=== PATIENT | female | born 1935 | race Two or more races ===

== ENCOUNTER 2017-07-16 22:42 | Inpatient (IN) | payer MEDICARE, OTHER ==
[~2017-07-16] VITALS: Ht 162.6 cm; Wt 59.0 kg
[2017-07-16 23:10] VITALS: BP 134/88
[2017-07-16 23:32] LABS: BASOPHILS % (AUTO) 0.6 % (0.0-2.0); LYMPHOCYTES % (AUTO) 24.4 % (20.0-45.0); MEAN CORPUSCULAR HEMOGLOBIN 29.4 PG (27.0-31.0); MEAN CORPUSCULAR HGB CONC 31.5 G/DL (32.0-36.0); MEAN CORPUSCULAR VOLUME 93 FL (80-99); MEAN PLATELET VOLUME 5.9 FL (6.5-10.1); MONOCYTES % (AUTO) 7.5 % (1.0-10.0); NEUTROPHILS % (AUTO) 67.6 % (45.0-75.0); PLATELET COUNT 360 K/UL (150-450); RED BLOOD COUNT 4.03 M/UL (4.20-5.40); RED CELL DISTRIBUTION WIDTH 17.6 % (11.6-14.8)
[2017-07-16 23:54] LABS: ANION GAP 21 (5-15); CALCIUM 9.4 mg/dL (8.6-10.2); CARBON DIOXIDE 20 mEQ/L (20-30); CHLORIDE 89 mEQ/L (98-107); CREATININE 5.6 mg/dL (0.5-0.9); HEMOLYSIS 5; POTASSIUM 5.2 mEQ/L (3.4-4.9); SODIUM 130 mEQ/L (135-145)
[2017-07-17] VITALS (7 sets, daily range): BP systolic 84–131; BP diastolic 52–78
--- NOTE | 2017-07-17 02:04 | Emergency Room Report ---
History of Present Illness General Chief Complaint: Nosebleed Source: Medical Record, PMD Present Illness HPI Is an 82-year-old female with a history diabetes and bilateral AKA. She presents with vomiting blood. Unable to get history from patient. History is from her primary care DrIvy and also from a prison. Onset tonight. Denies any other complaint. Allergies: Coded Allergies: No Known Allergies (Unverified , 07/16/17) Patient History Past Medical History: see triage record, old chart reviewed, DM, renal disease Past Surgical History: other Pertinent Family History: none Social History: Denies: smoking Now: No Immunizations: other Reviewed Nursing Documentation: PMH: Agreed, PSxH: Agreed Nursing Documentation-PMH Past Medical History: No History, Except For Hx Cardiac Problems: No - PNA, Anemia, Hyperlipidemia Hx Hypertension: Yes Review of Systems Eye: Denies: eye pain, blurred vision ENT: Denies: ear pain, nose congestion, throat swelling Respiratory: Denies: cough, shortness of breath Cardiovascular: Denies: chest pain, palpitations Gastrointestinal: Reports: hematemesis Musculoskeletal: Denies: back pain, joint pain Skin: Denies: rash Neurological: Denies: headache, numbness Endocrine: Denies: increased thirst, increased urine Hematologic/Lymphatic: Denies: easy bruising All Other Systems: negative except mentioned in HPI Physical Exam Vital Signs Date Time Temp Pulse Resp B/P (MAP) Pulse Ox O2 Delivery O2 Flow Rate FiO2 07/16/17 22:50 98.2 101 19 90/40 100 Room Air vitals with hypotension Sp02 EP Interpretation: reviewed, normal General Appearance: no apparent distress, Chronically Ill Head: normocephalic, atraumatic Eyes: bilateral eye PERRL, bilateral eye EOMI ENT: hearing grossly normal, normal pharynx, other - Active bleeding from left nose. Large clot in her nose. Neck: full range of motion, supple, no meningismus Respiratory: chest non-tender, lungs clear, normal breath sounds Cardiovascular #1: regular rate, rhythm, no murmur Gastrointestinal: normal bowel sounds, non tender, no mass, no organomegaly, no bruit, non-distended Musculoskeletal: back normal Psychiatric: mood/affect normal Skin: warm/dry Procedures Additional Procedure Procedure Narrative Procedure: Nasal packing Indication: Left epistaxis Description: I suction the nose with Rodriguez suction. The back of a large amount of clots. I did place a 5.5 cm anterior Rhino rocket. She tolerated seizure without a problem. Bleeding stopped. Medical Decision Making Diagnostic Impression: Primary Impression: Epistaxis Additional Impression: GI bleed Qualified Codes: K92.2 - Gastrointestinal hemorrhage, unspecified ER Course Patient with hematocrit emesis. Most likely secondary to swallowed blood. After my packing, patient had a very large amount of blood when she vomited. Because of this we'll observe her for serial hemoglobin. No evidence of active bleeding now. Hemoglobin at this point is stable. Blood pressure improved after IV fluid. Lab Results Impression labs unremarkable Rhythm Strip Diag. Results Rhythm Strip Time: 02:04 EP Interpretation: yes Rate: 100 Rhythm: NSR, no PVC's, no ectopy Last Vital Signs Date Time Temp Pulse Resp B/P (MAP) Pulse Ox O2 Delivery O2 Flow Rate FiO2 07/17/17 01:42 98.2 102 19 114/56 100 Room Air Status: improved Disposition: ADMITTED INPATIENT Condition: Serious Referrals: NON PHYSICIAN (PCP) YAHAIRA MURRAY M.D. Jul 17, 2017 02:04
[2017-07-17] MEDS ORDERED: ZINC SULFATE220 M1 ORAL (02:33)
[2017-07-17] MEDS ORDERED: BENADRYL25 MG ORAL (02:33)
[2017-07-17] MEDS ORDERED: DULCOLAX10 MG RC (02:33)
[2017-07-17] MEDS ORDERED: FOLIC ACID1 MG ORAL (02:33)
[2017-07-17] MEDS ORDERED: PEPCID20 MG ORAL (02:33)
[2017-07-17] MEDS ORDERED: ALLOPURINOL100 M1 ORAL (02:33)
[2017-07-17] MEDS ORDERED: NORCO 5-325 TA1 EACH ORAL (02:33)
[2017-07-17] MEDS ORDERED: ASPIR 8181 MG ORAL (02:33)
[2017-07-17] MEDS ORDERED: PRAVACHOL20 MG ORAL (02:33)
[2017-07-17] MEDS ORDERED: PLAVIX75 MG ORAL (02:33)
[2017-07-17] MEDS ORDERED: HYDRALAZINE HCL25 M1 ORAL (02:33)
[2017-07-17] MEDS ORDERED: Zolpidem 5mg tab ORAL PRN (05:30)
[2017-07-17] MEDS ORDERED: Norco 5mg/325mg tab ORAL PRN (05:45)
[2017-07-17] MEDS: D5 1/2NS 1,000 ML IV SCH ×2 (07:32→19:51)
[2017-07-17] MEDS: NovoLOG Insulin Flexpen SUBQ SCH ×3 (07:33→17:55)
[2017-07-17] MEDS ORDERED: Allopurinol 100mg Tab ORAL SCH (09:00)
--- NOTE | 2017-07-17 13:36 | History & Physical ---
History and Physical History & Physicial HP dictated # [id number] ESEQUIEL PÉREZ Jul 17, 2017 13:36
--- NOTE | 2017-07-17 17:23 | General Progress Note ---
Assessment/Plan Assessment/Plan GI CONSULT Dictated Presentation suggestive of only epistaxis would observe overnight and re check CBC in am No GI w/u planned unless shows ongoing / extensive bleeding Thank you Alberto Rico MD Subjective Allergies: Coded Allergies: No Known Allergies (Unverified , 07/16/17) Objective Last 24 Hour Vital Signs Date Time Temp Pulse Resp B/P (MAP) Pulse Ox O2 Delivery O2 Flow Rate FiO2 07/17/17 16:00 97.2 111 19 105/52 94 Room Air 07/17/17 14:56 Room Air 07/17/17 12:00 96.4 63 18 131/78 97 Room Air 07/17/17 11:30 Room Air 07/17/17 08:00 97.7 104 20 115/69 97 07/17/17 04:00 96.8 105 17 105/71 100 Room Air 07/17/17 02:34 98.2 102 19 114/56 100 Room Air 07/17/17 01:42 98.2 102 19 114/56 100 Room Air 07/17/17 01:15 98.2 101 19 84/54 100 Room Air 07/16/17 23:10 98.2 105 19 134/88 100 Room Air 07/16/17 22:50 98.2 101 19 90/40 100 Room Air Intake and Output 07/17/17 07/18/17 19:00 07:00 Output Total 1600 ml Balance -1600 ml Hemodialysis UF 1600 ml Laboratory Tests 07/16/17 23:05: White Blood Count 11.0H, Red Blood Count 4.03L, Hemoglobin 11.9L, Hematocrit 37.7, Mean Corpuscular Volume 93, Mean Corpuscular Hemoglobin 29.4, Mean Corpuscular Hemoglobin Concent 31.5L, Red Cell Distribution Width 17.6H, Platelet Count 360, Mean Platelet Volume 5.9L, Neutrophils (%) (Auto) 67.6, Lymphocytes (%) (Auto) 24.4, Monocytes (%) (Auto) 7.5, Eosinophils (%) (Auto) 0.0, Basophils (%) (Auto) 0.6, Sodium Level 130L, Potassium Level 5.2H, Chloride Level 89L, Carbon Dioxide Level 20, Anion Gap 21H, Blood Urea Nitrogen 119H, Creatinine 5.6H, Estimat Glomerular Filtration Rate , Glucose Level 231H, Calcium Level 9.4 Height (Feet): 5 Height (Inches): 4.00 Weight (Pounds): 130 ALBERTO RICO Jul 17, 2017 17:23
[2017-07-18] VITALS: BP 139/80
[2017-07-18] MEDS ORDERED: Oxymetazoline 0.05% Na Spray 30ml NASAL ONE (00:27)
--- NOTE | 2017-07-18 01:10 | Emergency Room Report ---
History of Present Illness General Chief Complaint: Nosebleed Source: Medical Record, PMD Present Illness Allergies: Coded Allergies: No Known Allergies (Unverified , 07/16/17) Patient History Now: No Nursing Documentation-PMH Past Medical History: No History, Except For Hx Cardiac Problems: No - PNA, Anemia, Hyperlipidemia Hx Hypertension: Yes Hx Diabetes: Yes Hx Cancer: No Hx Dialysis: Yes - ESRD Physical Exam Vital Signs Date Time Temp Pulse Resp B/P (MAP) Pulse Ox O2 Delivery O2 Flow Rate FiO2 07/16/17 22:50 98.2 101 19 90/40 100 Room Air Medical Decision Making Diagnostic Impression: Primary Impression: Epistaxis Additional Impression: GI bleed Qualified Codes: K92.2 - Gastrointestinal hemorrhage, unspecified ER Course The patient noted by staff to have some increased bleeding to her left nare. The patient was noted to have a prior nasal packing. A Rhino Rocket balloon was noted to be somewhat deflated. This was reinflated with air. Afrin nasal spray was instilled into left nare. The patient was noted to have some improvement in the bleeding which appear to be minimal. The nursing staff were advised to recontact if bleeding increased. Last Vital Signs Date Time Temp Pulse Resp B/P (MAP) Pulse Ox O2 Delivery O2 Flow Rate FiO2 07/17/17 20:00 98.4 102 18 115/64 99 Room Air Disposition: ADMITTED INPATIENT Condition: Serious Referrals: NON PHYSICIAN (PCP) Bar Robertson Jul 18, 2017 01:10
[2017-07-18] MEDS ORDERED: Desmopressin (DDAVP) Inj IV ONE (03:30)
--- NOTE | 2017-07-18 03:30 | Consultation ---
DATE OF CONSULTATION: 07/17/2017 GASTROENTEROLOGY CONSULTATION CHIEF COMPLAINT: I was asked to see this patient by Dr. Aftab Arnold for evaluation of hematemesis. HISTORY OF PRESENT ILLNESS: The patient is an 82-year-old woman with advanced dementia who was brought to the hospital due to hematemesis. The patient has had an extensive history of diabetes and vascular disease resulting in bilateral [id number] amputations. There is no history available from the patient. In the emergency room, the patient was treated for her hematemesis and was subsequent found to have a significant epistaxis to the point of requiring a nasal packing with a balloon. Subsequently, her bleeding has stopped and she was sent to the floor for observation. The patient's hematocrit on admission was intact. The patient is a dialysis patient. PAST MEDICAL HISTORY: History of renal failure requiring chronic dialysis, history of diabetes, and peripheral vascular disease status post [id number] amputation, dysphagia status post gastrostomy tube placement, and dementia. ALLERGIES: None. SOCIAL HISTORY: The patient is a assisted resident. FAMILY HISTORY: Unavailable. REVIEW OF SYSTEMS: Unobtainable. PHYSICAL EXAMINATION: GENERAL: The patient is a debilitated woman, seen in her room. HEENT: Normocephalic and atraumatic. Dentition was poor. NECK: Supple. CHEST: Clear to auscultation. CARDIOVASCULAR: Revealed a regular rate. ABDOMEN: Soft with good bowel sounds and appropriate gastrostomy catheter. EXTREMITIES: Revealed [id number] amputations bilaterally. NEUROLOGIC: Notable for advanced dementia. LABORATORY AND DIAGNOSTIC DATA: Laboratory data as noted. ASSESSMENT: This patient presents with what appears to be epistaxis is the primary and only pathology. The upper gastrointestinal bleeding will therefore be due to nosebleed. So the patient's hematocrit will likely stay reasonably stable and no further action will be necessary except treatment of the patient's nosebleed. If the patient shows evidence of ongoing bleeding, then gastrointestinal endoscopy may be necessary to evaluate the upper gastrointestinal tract. RECOMMENDATIONS: 1. Admit to the hospital for overnight observation. 2. Intravenous fluids as appropriate per renal physician. 3. Repeat CBC tomorrow. 4. Monitor for rectal bleeding or melena. Thank you for asking me to participate in care this patient. Alberto Rico M.D. DR: NASIR JOB#: [id number] CC: BHANU
[2017-07-18 04:28] VITALS: BP 114/57
[2017-07-18] MEDS: D5 1/2NS 1,000 ML IV SCH ×3 (04:45→23:33)
[2017-07-18] MEDS ORDERED: Zolpidem 5mg tab ORAL PRN (05:30)
--- NOTE | 2017-07-18 05:30 | History and Physical Report ---
DATE OF ADMISSION: 07/17/2017 CHIEF COMPLAINT: Vomiting blood. HISTORY OF PRESENT ILLNESS: This is an 82-year-old female with history of end-stage renal disease, on hemodialysis apparently every Wednesday, , and Wednesday, her last dialysis was two days ago. She was brought in for vomiting blood. It turned out she had epistaxis and nose was packed. She is unable to provide any history because of history of dementia. She usually goes to [facility] for her medical needs. PAST MEDICAL HISTORY: Includes history of diabetes mellitus, the patient is status post bilateral above-knee amputations, history of end-stage renal disease as mentioned. Per [facility] records, the patient had also history of dyslipidemia, hypertension, peripheral vascular disease, prior CVA, history of DVT, history of Streptococcus bacteremia, and anemia. MEDICATIONS: Reviewed in the EMR. ALLERGIES: NKDA. SOCIAL HISTORY: Unobtainable. Per previous records, no history of smoking or alcohol abuse. The patient lives in [facility] REVIEW OF SYSTEMS: Unobtainable. PHYSICAL EXAMINATION: GENERAL: The patient is an elderly female, eyes open, nonverbal. VITAL SIGNS: Blood pressure 131/78, pulse 63, temperature 96.4 degrees, and respiratory rate is 18. HEENT: [place] conjunctivae. Anicteric sclerae. NECK: Supple. LUNGS: Clear to auscultation. HEART: S1 and S2 without murmurs or rubs. ABDOMEN: Soft and nontender. The patient has G-tube on upper abdomen. EXTREMITIES: The patient has bilateral above-knee amputations. LABORATORY FINDINGS: CBC shows a WBC of 11,000, hematocrit 37.7, hemoglobin 11.9, and platelets 360,000. Chemistry panel shows a sodium of 130, potassium 5.2, chloride 89, BUN 119, creatinine 5.6, and blood sugar is 231. ASSESSMENT: This is an 82-year-old female ,who was admitted with vomiting blood, likely as a result of swallowing the blood from the nosebleed. She has history of end-stage renal disease, on hemodialysis every Wednesday, , and Wednesday, history of diabetes, cerebrovascular accident, and hypertension. PLAN: The patient is being dialyzed at this point. She was seen by Dr. Rico in GI consultation. I just discussed the case with him. There is no plan to do endoscopy, as mentioned that likely the blood is coming from the nose and not from the stomach. ENT consultation will be obtained. The patient's CBC will be followed closely. Aftab Arnold M.D. DR: MARIELA JOB#: [id number] CC: BHANU
[2017-07-18] MEDS ORDERED: Norco 5mg/325mg tab ORAL PRN (05:45)
[2017-07-18] MEDS: NovoLOG Insulin Flexpen SUBQ SCH ×5 (06:21→23:28)
[2017-07-18 08:06] LABS: BASOPHILS % (AUTO) 0.7 % (0.0-2.0); EOSINOPHILS % (AUTO) 0.2 % (0.0-3.0); LYMPHOCYTES % (AUTO) 13.9 % (20.0-45.0); MEAN CORPUSCULAR HEMOGLOBIN 29.1 PG (27.0-31.0); MEAN CORPUSCULAR HGB CONC 31.1 G/DL (32.0-36.0); MEAN CORPUSCULAR VOLUME 93 FL (80-99); MEAN PLATELET VOLUME 5.7 FL (6.5-10.1); MONOCYTES % (AUTO) 9.1 % (1.0-10.0); NEUTROPHILS % (AUTO) 76.2 % (45.0-75.0); PLATELET COUNT 228 K/UL (150-450); RED BLOOD COUNT 2.93 M/UL (4.20-5.40); RED CELL DISTRIBUTION WIDTH 17.8 % (11.6-14.8); WHITE BLOOD COUNT 10.2 K/UL (4.8-10.8)
[2017-07-18 08:33] VITALS: BP 92/58
[2017-07-18 11:38] VITALS: BP 136/73
[2017-07-18] MEDS: Allopurinol 100mg Tab ORAL SCH (12:57)
--- NOTE | 2017-07-18 15:04 | General Progress Note ---
Assessment/Plan Assessment/Plan Assessment - epistaxis - Anemia - ESRD - OBS - Dysphagia/GT Recommendations - ENT eval - GT Feeds - Monitor H&H - check coags Subjective Allergies: Coded Allergies: No Known Allergies (Unverified , 07/16/17) Subjective above noted more nose bleeding now both nares double packed nonverbal Objective Last 24 Hour Vital Signs Date Time Temp Pulse Resp B/P (MAP) Pulse Ox O2 Delivery O2 Flow Rate FiO2 07/18/17 11:38 97.7 123 20 136/73 97 Room Air 07/18/17 08:33 97.0 120 20 92/58 99 Room Air 07/18/17 04:28 97.6 124 21 114/57 100 Room Air 07/18/17 00:00 99.0 104 18 139/80 98 Room Air 07/17/17 20:00 98.4 102 18 115/64 99 Room Air 07/17/17 16:00 97.2 111 19 105/52 94 Room Air 07/17/17 14:56 Room Air Laboratory Tests 07/18/17 05:30: White Blood Count 10.2, Red Blood Count 2.93L, Hemoglobin 8.5L, Hematocrit 27.4L , Mean Corpuscular Volume 93, Mean Corpuscular Hemoglobin 29.1, Mean Corpuscular Hemoglobin Concent 31.1L, Red Cell Distribution Width 17.8H, Platelet Count 228, Mean Platelet Volume 5.7L, Neutrophils (%) (Auto) 76.2H, Lymphocytes (%) (Auto) 13.9L, Monocytes (%) (Auto) 9.1, Eosinophils (%) (Auto) 0.2, Basophils (%) (Auto) 0.7 Height (Feet): 5 Height (Inches): 4.00 Weight (Pounds): 130 Objective Elderly AA woman NCAT (+) nares packed CTA RRR abd soft (+) GT (+) b/l AKA OBS NICOLE JOHNSTON Jul 18, 2017 15:04
--- NOTE | 2017-07-18 15:15 | General Progress Note ---
Assessment/Plan Problem List: (1) Epistaxis ICD Codes: R04.0 - Epistaxis SNOMED: 940792921, 40883249 (2) ESRD (end stage renal disease) on dialysis ICD Codes: N18.6 - End stage renal disease; Z99.2 - Dependence on renal dialysis SNOMED: 298412154 (3) DM (diabetes mellitus) ICD Codes: E11.9 - Type 2 diabetes mellitus without complications SNOMED: 73765310 (4) HTN (hypertension) ICD Codes: I10 - Essential (primary) hypertension SNOMED: 37156047 Assessment/Plan follow H/H transfuse PRN HD on Wednesday DDAVP given Discussed with RN Subjective Allergies: Coded Allergies: No Known Allergies (Unverified , 07/16/17) Subjective had more nose bleed yesterday was seen by ER physician packed again it appears it has stopped now Objective Last 24 Hour Vital Signs Date Time Temp Pulse Resp B/P (MAP) Pulse Ox O2 Delivery O2 Flow Rate FiO2 07/18/17 12:00 122 07/18/17 11:38 97.7 123 20 136/73 97 Room Air 07/18/17 08:33 97.0 120 20 92/58 99 Room Air 07/18/17 08:00 127 07/18/17 04:28 97.6 124 21 114/57 100 Room Air 07/18/17 00:00 99.0 104 18 139/80 98 Room Air 07/17/17 20:00 98.4 102 18 115/64 99 Room Air 07/17/17 16:00 97.2 111 19 105/52 94 Room Air Laboratory Tests 07/18/17 05:30: White Blood Count 10.2, Red Blood Count 2.93L, Hemoglobin 8.5L, Hematocrit 27.4L , Mean Corpuscular Volume 93, Mean Corpuscular Hemoglobin 29.1, Mean Corpuscular Hemoglobin Concent 31.1L, Red Cell Distribution Width 17.8H, Platelet Count 228, Mean Platelet Volume 5.7L, Neutrophils (%) (Auto) 76.2H, Lymphocytes (%) (Auto) 13.9L, Monocytes (%) (Auto) 9.1, Eosinophils (%) (Auto) 0.2, Basophils (%) (Auto) 0.7 Height (Feet): 5 Height (Inches): 4.00 Weight (Pounds): 130 Cardiovascular: normal rate Respiratory/Chest: lungs clear ESEQUIEL PÉREZ Jul 18, 2017 15:15
[2017-07-18] MEDS ORDERED: Augmentin 250mg/5ml Susp 75ml NG SCH (15:30)
[2017-07-18 15:49] VITALS: BP 159/70
[2017-07-18] MEDS: Augmentin 250mg/5ml Susp 75ml NG SCH ×2 (17:51→21:53)
[2017-07-18] MEDS ORDERED: D5 1/2NS 1000ml IV ONE (18:16)
[2017-07-18 20:00] VITALS: BP 128/65
[2017-07-19] VITALS: BP 134/68
[2017-07-19 04:00] VITALS: BP 143/73
[2017-07-19] MEDS: Augmentin 250mg/5ml Susp 75ml NG SCH ×3 (05:36→22:38)
[2017-07-19] MEDS: NovoLOG Insulin Flexpen SUBQ SCH ×4 (05:38→23:33)
[2017-07-19 08:00] VITALS: BP 151/77
[2017-07-19] MEDS: Allopurinol 100mg Tab ORAL SCH (08:53)
--- NOTE | 2017-07-19 09:50 | General Progress Note ---
Assessment/Plan Problem List: (1) Epistaxis ICD Codes: R04.0 - Epistaxis SNOMED: 640967325, 26081242 (2) ESRD (end stage renal disease) on dialysis ICD Codes: N18.6 - End stage renal disease; Z99.2 - Dependence on renal dialysis SNOMED: 406973235 (3) DM (diabetes mellitus) ICD Codes: E11.9 - Type 2 diabetes mellitus without complications SNOMED: 05579306 (4) HTN (hypertension) ICD Codes: I10 - Essential (primary) hypertension SNOMED: 13618800 Assessment/Plan follow H/H HD on Wednesday Discussed with RN Subjective Allergies: Coded Allergies: No Known Allergies (Unverified , 07/16/17) Subjective No more nose bleed Objective Last 24 Hour Vital Signs Date Time Temp Pulse Resp B/P (MAP) Pulse Ox O2 Delivery O2 Flow Rate FiO2 07/19/17 08:00 97.5 112 20 151/77 98 Room Air 07/19/17 04:00 97.9 115 18 143/73 97 Room Air 07/19/17 04:00 115 07/19/17 00:00 111 07/19/17 00:00 97.7 111 20 134/68 96 07/18/17 20:00 98.0 114 20 128/65 97 07/18/17 20:00 115 07/18/17 18:45 118 07/18/17 15:49 97.7 114 20 159/70 99 Room Air 07/18/17 12:00 122 07/18/17 11:38 97.7 123 20 136/73 97 Room Air Height (Feet): 5 Height (Inches): 4.00 Weight (Pounds): 130 Cardiovascular: normal rate Respiratory/Chest: lungs clear Edema: no edema noted ESEQUIEL Tello Jul 19, 2017 09:50
[2017-07-19 10:04] LABS: MEAN CORPUSCULAR HGB CONC 30.9 G/DL (32.0-36.0); MEAN CORPUSCULAR VOLUME 94 FL (80-99); MEAN PLATELET VOLUME 6.1 FL (6.5-10.1); PLATELET COUNT 164 K/UL (150-450); RED BLOOD COUNT 2.14 M/UL (4.20-5.40); RED CELL DISTRIBUTION WIDTH 18.1 % (11.6-14.8); WHITE BLOOD COUNT 15.1 K/UL (4.8-10.8)
[2017-07-19 10:09] LABS: PROTHROMBIN TIME 10.4 SEC (9.30-11.50)
[2017-07-19 10:15] LABS: ANION GAP 17 (5-15); CALCIUM 8.5 mg/dL (8.6-10.2); CARBON DIOXIDE 24 mEQ/L (20-30); CHLORIDE 91 mEQ/L (98-107); CREATININE 5.6 mg/dL (0.5-0.9); HEMOLYSIS 4; POTASSIUM 3.8 mEQ/L (3.4-4.9); SODIUM 132 mEQ/L (135-145)
[2017-07-19 11:37] LABS: ANISOCYTOSIS 1+; BAND NEUTROPHILS % (MANUAL) 1 % (0-8); BASOPHILS % (MANUAL) 0 % (0-2); EOSINOPHILS % (MANUAL) 0 % (0-3); HYPOCHROMASIA 1+; LYMPHOCYTES % (MANUAL) 8 % (20-45); NEUTROPHILS % (MANUAL) 82 % (45-75); PLATELET ESTIMATE ADEQUATE; PLATELET MORPHOLOGY NORMAL; TOTAL CELLS COUNTED 100
[2017-07-19 12:00] VITALS: BP 130/73
[2017-07-19 15:59] VITALS: BP 130/66
--- NOTE | 2017-07-19 17:03 | General Progress Note ---
Assessment/Plan Status: stable Assessment/Plan 1. epistaxis - Awaiting ENT tomorrow to see the patient. ER to repack nostril for today. 2. Anemia from Eipstaxis - transfuse 2 PRBC today. 3. ERSD on HD - renal following. 4. DM II 5. HTN 6. Hyperlipidemia 7. PVD 8. h/o CVA 9. 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 Subjective Date patient seen: Jul 19, 2017 Time patient seen: 04:40 Constitutional: Reports: weakness HEENT: Reports: other - nose bleeding Cardiovascular: Reports: other - sinus tachycadia Respiratory: Reports: no symptoms Gastrointestinal/Abdominal: Reports: no symptoms Genitourinary: Reports: no symptoms Neurologic/Psychiatric: Reports: no symptoms Endocrine: Reports: no symptoms Hematologic/Lymphatic: Reports: no symptoms Allergies: Coded Allergies: No Known Allergies (Unverified , 07/16/17) Subjective Pt has been having nose bleeding in the past few days since admission. no sob or chest pain. Today, she pulled her nose packing and bleeding again. Her H/H has dropped to 6.2 today. Objective Last 24 Hour Vital Signs Date Time Temp Pulse Resp B/P (MAP) Pulse Ox O2 Delivery O2 Flow Rate FiO2 07/19/17 15:59 97.5 111 20 130/66 100 Room Air 07/19/17 12:00 98.2 110 20 130/73 Room Air 07/19/17 12:00 108 07/19/17 08:00 97.5 112 20 151/77 98 Room Air 07/19/17 08:00 116 07/19/17 04:00 97.9 115 18 143/73 97 Room Air 07/19/17 04:00 115 07/19/17 00:00 111 07/19/17 00:00 97.7 111 20 134/68 96 07/18/17 20:00 98.0 114 20 128/65 97 07/18/17 20:00 115 07/18/17 18:45 118 Laboratory Tests 07/19/17 09:40: White Blood Count 15.1H, Red Blood Count 2.14L, Hemoglobin 6.2*L, Hematocrit 20.0L, Mean Corpuscular Volume 94, Mean Corpuscular Hemoglobin 29.0, Mean Corpuscular Hemoglobin Concent 30.9L, Red Cell Distribution Width 18.1H, Platelet Count 164, Mean Platelet Volume 6.1L, Neutrophils (%) (Auto) , Lymphocytes (%) (Auto) , Monocytes (%) (Auto) , Eosinophils (%) (Auto) , Basophils (%) (Auto) , Differential Total Cells Counted 100, Neutrophils % ( Manual) 82H, Lymphocytes % (Manual) 8L, Monocytes % (Manual) 9, Eosinophils % ( Manual) 0, Basophils % (Manual) 0, Band Neutrophils 1, Platelet Estimate Adequate, Platelet Morphology Normal, Hypochromasia 1+, Anisocytosis 1+, Prothrombin Time 10.4, Prothromb Time International Ratio 1.0, Sodium Level 132L , Potassium Level 3.8, Chloride Level 91L, Carbon Dioxide Level 24, Anion Gap 17H, Blood Urea Nitrogen 102H, Creatinine 5.6H, Estimat Glomerular Filtration Rate , Glucose Level 171H, Calcium Level 8.5L Height (Feet): 5 Height (Inches): 4.00 Weight (Pounds): 130 General Appearance: no apparent distress EENT: other Neck: non-tender, normal alignment, supple Cardiovascular: normal peripheral pulses, normal rate, regular rhythm Respiratory/Chest: chest wall non-tender, lungs clear, normal breath sounds Abdomen: normal bowel sounds, non tender, soft Extremities: non-tender Edema: no edema noted Arm (L), no edema noted Arm (R), no edema noted Leg (L), no edema noted Leg (R), no edema noted Pedal (L), no edema noted Pedal (R), no edema noted Generalized Neurologic: responsive Skin: warm/dry Lymphatic: normal anterior cervical (L), normal anterior cervical (R), normal posterior cervical (L), normal posterior cervical (R), normal submandibular (L) , normal submandibular (R), normal supraclavicular (L), normal supraclavicular ( R), normal axillary (L), normal axillary (R), normal inguinal (L), normal inguinal (R), normal other ELVA ARRIAZA Jul 19, 2017 17:03
[2017-07-19 20:13] VITALS: BP 123/72
[2017-07-19] MEDS: D5 1/2NS 1,000 ML IV SCH (21:10)
--- NOTE | 2017-07-19 21:17 | General Progress Note ---
Assessment/Plan Assessment/Plan Assessment - epistaxis - Anemia - ESRD - OBS - Dysphagia/GT Recommendations - ENT eval - GT Feeds - Monitor H&H - RBC Tx Subjective Allergies: Coded Allergies: No Known Allergies (Unverified , 07/16/17) Subjective above noted more nose bleeding Got RBC Tx nonverbal tolerating TF Objective Last 24 Hour Vital Signs Date Time Temp Pulse Resp B/P (MAP) Pulse Ox O2 Delivery O2 Flow Rate FiO2 07/19/17 20:13 99.1 107 20 123/72 99 Room Air 07/19/17 16:00 111 07/19/17 15:59 97.5 111 20 130/66 100 Room Air 07/19/17 12:00 98.2 110 20 130/73 Room Air 07/19/17 12:00 108 07/19/17 08:00 97.5 112 20 151/77 98 Room Air 07/19/17 08:00 116 07/19/17 04:00 97.9 115 18 143/73 97 Room Air 07/19/17 04:00 115 07/19/17 00:00 111 07/19/17 00:00 97.7 111 20 134/68 96 Intake and Output 07/19/17 07/20/17 19:00 07:00 Intake Total 440 ml Balance 440 ml IV Total 440 ml Laboratory Tests 07/19/17 09:40: White Blood Count 15.1H, Red Blood Count 2.14L, Hemoglobin 6.2*L, Hematocrit 20.0L, Mean Corpuscular Volume 94, Mean Corpuscular Hemoglobin 29.0, Mean Corpuscular Hemoglobin Concent 30.9L, Red Cell Distribution Width 18.1H, Platelet Count 164, Mean Platelet Volume 6.1L, Neutrophils (%) (Auto) , Lymphocytes (%) (Auto) , Monocytes (%) (Auto) , Eosinophils (%) (Auto) , Basophils (%) (Auto) , Differential Total Cells Counted 100, Neutrophils % ( Manual) 82H, Lymphocytes % (Manual) 8L, Monocytes % (Manual) 9, Eosinophils % ( Manual) 0, Basophils % (Manual) 0, Band Neutrophils 1, Platelet Estimate Adequate, Platelet Morphology Normal, Hypochromasia 1+, Anisocytosis 1+, Prothrombin Time 10.4, Prothromb Time International Ratio 1.0, Sodium Level 132L , Potassium Level 3.8, Chloride Level 91L, Carbon Dioxide Level 24, Anion Gap 17H, Blood Urea Nitrogen 102H, Creatinine 5.6H, Estimat Glomerular Filtration Rate , Glucose Level 171H, Calcium Level 8.5L Height (Feet): 5 Height (Inches): 4.00 Weight (Pounds): 130 Objective Elderly AA woman NCAT (+) nares packed CTA RRR abd soft (+) GT (+) b/l AKA OBS NICOLE JOHNSTON Jul 19, 2017 21:17
--- NOTE | 2017-07-19 23:06 | Wound Care Consultation ---
Wound Assessment Wound Assessment #1: Wound Number: 1 Wound Present on Admission: Yes New Wound: No Status Change of Wound: No Wound Location Body Site Modif: mid Wound Location Body Site: sacral Wound Type: pressure ulcer Luana Test: Does not Luana Pressure Ulcer Stage: III - scattered Wound Thickness: Full Thickness Wound Length: 6.0 Wound Width: 13.0 Wound Depth: 0.2 Percent of Wound Herrings/Red: 100 Wound Drainage Description: Sanguineous Wound Drainage Amount: Moderate Wound Drainage Odor: None/Absent Tissue Surrounding Wound: Denuded Wound General Appearance: Reddened, Draining Wound Assessment #2: Wound Number: 2 Wound Present on Admission: Yes New Wound: No Status Change of Wound: No Wound Location Body Site: perineal area Wound Type: chemical burn - erosion Luana Test: Does not Luana Wound Thickness: Partial Thickness Percent of Wound Herrings/Red: 100 Wound Drainage Description: Serosanguineous Wound Drainage Amount: Scant Wound Drainage Odor: None/Absent Tissue Surrounding Wound: Erythemic Wound General Appearance: Reddened Wound Assessment #3: Wound Number: 3 Wound Present on Admission: Yes New Wound: No Status Change of Wound: No Wound Location Body Site Modif: left, medial Wound Location Body Site: thigh Wound Type: blister Luana Test: Does not Luana Blisters: Denuded Blister Wound Thickness: Partial Thickness Percent of Wound Herrings/Red: 100 Wound Drainage Description: Serosanguineous Wound Drainage Amount: Scant Wound Drainage Odor: None/Absent Tissue Surrounding Wound: Erythemic Wound General Appearance: Reddened Wound Assessment #4: Wound Number: 4 Wound Present on Admission: Yes New Wound: No Status Change of Wound: No Wound Location Body Site Modif: left Wound Location Body Site: ischial tuberosity Wound Type: pressure ulcer Luana Test: Does not Luana Pressure Ulcer Stage: II Wound Thickness: Partial Thickness Wound Length: 4.0 Wound Width: 2.0 Wound Depth: 0.1 Percent of Wound Herrings/Red: 100 Wound Drainage Description: Serosanguineous Wound Drainage Amount: Scant Wound Drainage Odor: None/Absent Tissue Surrounding Wound: Macerated Wound General Appearance: Reddened, Draining Wound Assessment #5: Wound Number: 5 Wound Present on Admission: Yes New Wound: No Status Change of Wound: No Wound Location Body Site Modif: right Wound Location Body Site: buttocks Wound Type: pressure ulcer Luana Test: Does not Luana Pressure Ulcer Stage: II Wound Thickness: Partial Thickness Wound Length: 2.0 Wound Width: 2.0 Wound Depth: less than 0.1 Percent of Wound Herrings/Red: 100 Wound Drainage Description: Serosanguineous Wound Drainage Amount: Scant Wound Drainage Odor: None/Absent Tissue Surrounding Wound: Erythemic Wound General Appearance: Reddened Wound Comment #1 Sacral scattered III pressure ulcer #2 Left inner thigh denuded blister #3 Left ischial tuberosity scattered stage II pressure ulcer #4 Right buttocks stage II pressure ulcer #5 Left breast dry scab #6 Perineal chemical burn with erosion #7 Left BKA stump site with steri-strips Recommendation -Local wound care per protocol -Keep clean and dry -Turn and reposition -Optimize nutrition -Low air loss mattress -Follow MD order for left BKA stump site -Assess and f/u accordingly for any changes TRUDY TOMLIN RN Jul 19, 2017 23:06
[2017-07-20] VITALS (7 sets, daily range): BP systolic 114–143; BP diastolic 55–79
[2017-07-20 02:17] LABS: MEAN CORPUSCULAR HEMOGLOBIN 31.3 PG (27.0-31.0); MEAN CORPUSCULAR HGB CONC 33.6 G/DL (32.0-36.0); MEAN CORPUSCULAR VOLUME 93 FL (80-99); MEAN PLATELET VOLUME 6.4 FL (6.5-10.1); PLATELET COUNT 111 K/UL (150-450); RED CELL DISTRIBUTION WIDTH 16.6 % (11.6-14.8); WHITE BLOOD COUNT 14.3 K/UL (4.8-10.8)
[2017-07-20] MEDS: Augmentin 250mg/5ml Susp 75ml NG SCH ×3 (05:40→22:01)
[2017-07-20] MEDS: NovoLOG Insulin Flexpen SUBQ SCH ×3 (05:42→18:19)
[2017-07-20] MEDS: Allopurinol 100mg Tab ORAL SCH (09:11)
[2017-07-20 09:52] LABS: MEAN CORPUSCULAR HEMOGLOBIN 29.2 PG (27.0-31.0); MEAN CORPUSCULAR HGB CONC 31.9 G/DL (32.0-36.0); MEAN CORPUSCULAR VOLUME 92 FL (80-99); MEAN PLATELET VOLUME 6.1 FL (6.5-10.1); PLATELET COUNT 148 K/UL (150-450); RED BLOOD COUNT 3.05 M/UL (4.20-5.40); RED CELL DISTRIBUTION WIDTH 15.9 % (11.6-14.8); WHITE BLOOD COUNT 13.3 K/UL (4.8-10.8)
[2017-07-20] MEDS ORDERED: D5 1/2NS 1000ml IV ONE (09:52)
[2017-07-20] MEDS ORDERED: NS 275ml ONE (09:52)
[2017-07-20] MEDS ORDERED: Tubing IV Blood Pump IV ONE (09:52)
[2017-07-20] MEDS: D5 1/2NS 1,000 ML IV SCH (09:57)
[2017-07-20 10:14] LABS: ANION GAP 19 (5-15); CALCIUM 8.4 mg/dL (8.6-10.2); CARBON DIOXIDE 21 mEQ/L (20-30); CHLORIDE 90 mEQ/L (98-107); CREATININE 6.3 mg/dL (0.5-0.9); HEMOLYSIS 9; PHOSPHORUS 8.6 mg/dL (2.5-4.8); POTASSIUM 4.5 mEQ/L (3.4-4.9); SODIUM 130 mEQ/L (135-145)
[2017-07-20 10:22] LABS: BAND NEUTROPHILS % (MANUAL) 1 % (0-8); LYMPHOCYTES % (MANUAL) 13 % (20-45); NEUTROPHILS % (MANUAL) 80 % (45-75); TOTAL CELLS COUNTED 100
[2017-07-20 10:23] LABS: BASOPHILS % (MANUAL) 0 % (0-2); EOSINOPHILS % (MANUAL) 0 % (0-3); PLATELET ESTIMATE DECREASED; PLATELET MORPHOLOGY NORMAL
[2017-07-20 10:25] LABS: ANISOCYTOSIS 1+; HYPOCHROMASIA 1+
--- NOTE | 2017-07-20 12:49 | Nephrology Progress Note ---
Assessment/Plan Problem List: (1) Epistaxis (2) ESRD (end stage renal disease) on dialysis (3) DM (diabetes mellitus) (4) HTN (hypertension) Plan HD today transfused follow labs Discussed with Dr Alcantar Subjective Subjective In NAD Objective Objective Last 24 Hour Vital Signs Date Time Temp Pulse Resp B/P (MAP) Pulse Ox O2 Delivery O2 Flow Rate FiO2 07/20/17 11:39 97.3 98 20 121/60 99 Room Air 07/20/17 08:00 98.8 97 20 114/55 100 Room Air 07/20/17 08:00 100 07/20/17 04:00 97.5 101 20 143/79 98 Room Air 07/20/17 04:00 98 07/20/17 00:07 97.5 92 20 118/62 99 Room Air 07/20/17 00:00 106 07/19/17 22:37 99.0 07/19/17 20:13 99.1 107 20 123/72 99 Room Air 07/19/17 20:00 113 07/19/17 16:00 111 07/19/17 15:59 97.5 111 20 130/66 100 Room Air Intake and Output 07/20/17 07/21/17 19:00 07:00 Intake Total 150 ml Balance 150 ml IV Total 150 ml Laboratory Tests 07/20/17 01:50: White Blood Count 14.3H, Red Blood Count 2.50L, Hemoglobin 7.8L, Hematocrit 23.2L, Mean Corpuscular Volume 93, Mean Corpuscular Hemoglobin 31.3H, Mean Corpuscular Hemoglobin Concent 33.6, Red Cell Distribution Width 16.6H, Platelet Count 111L, Mean Platelet Volume 6.4L, Neutrophils (%) (Auto) , Lymphocytes (%) (Auto) , Monocytes (%) (Auto) , Eosinophils (%) (Auto) , Basophils (%) (Auto) 07/20/17 09:40: White Blood Count 13.3H, Red Blood Count 3.05L, Hemoglobin 8.9L, Hematocrit 28.0L, Mean Corpuscular Volume 92, Mean Corpuscular Hemoglobin 29.2, Mean Corpuscular Hemoglobin Concent 31.9L, Red Cell Distribution Width 15.9H, Platelet Count 148L, Mean Platelet Volume 6.1L, Neutrophils (%) (Auto) , Lymphocytes (%) (Auto) , Monocytes (%) (Auto) , Eosinophils (%) (Auto) , Basophils (%) (Auto) , Differential Total Cells Counted 100, Neutrophils % ( Manual) 80H, Lymphocytes % (Manual) 13L, Monocytes % (Manual) 6, Eosinophils % ( Manual) 0, Basophils % (Manual) 0, Band Neutrophils 1, Platelet Estimate DecreasedL, Platelet Morphology Normal, Hypochromasia 1+, Anisocytosis 1+, Sodium Level 130L, Potassium Level 4.5, Chloride Level 90L, Carbon Dioxide Level 21, Anion Gap 19H, Blood Urea Nitrogen 114H, Creatinine 6.3H, Estimat Glomerular Filtration Rate , Glucose Level 163H, Calcium Level 8.4L, Phosphorus Level 8.6H Height (Feet): 5 Height (Inches): 4.00 Weight (Pounds): 130 Cardiovascular: normal rate Respiratory/Chest: lungs clear Extremities: other - no edema ESEQUIEL PÉREZ Jul 20, 2017 12:49
--- NOTE | 2017-07-20 14:26 | General Progress Note ---
Assessment/Plan Assessment/Plan Assessment - epistaxis - Anemia - ESRD - OBS - Dysphagia/GT Recommendations - ENT eval - GT Feeds - Monitor H&H - RBC Tx Subjective Allergies: Coded Allergies: No Known Allergies (Unverified , 07/16/17) Subjective above noted still some nose bleeding nonverbal tolerating TF - renal formula Objective Last 24 Hour Vital Signs Date Time Temp Pulse Resp B/P (MAP) Pulse Ox O2 Delivery O2 Flow Rate FiO2 07/20/17 12:00 96 07/20/17 11:39 97.3 98 20 121/60 99 Room Air 07/20/17 08:00 98.8 97 20 114/55 100 Room Air 07/20/17 08:00 100 07/20/17 04:00 97.5 101 20 143/79 98 Room Air 07/20/17 04:00 98 07/20/17 00:07 97.5 92 20 118/62 99 Room Air 07/20/17 00:00 106 07/19/17 22:37 99.0 07/19/17 20:13 99.1 107 20 123/72 99 Room Air 07/19/17 20:00 113 07/19/17 16:00 111 07/19/17 15:59 97.5 111 20 130/66 100 Room Air Intake and Output 07/20/17 07/21/17 19:00 07:00 Intake Total 150 ml Balance 150 ml IV Total 150 ml Laboratory Tests 07/20/17 01:50: White Blood Count 14.3H, Red Blood Count 2.50L, Hemoglobin 7.8L, Hematocrit 23.2L, Mean Corpuscular Volume 93, Mean Corpuscular Hemoglobin 31.3H, Mean Corpuscular Hemoglobin Concent 33.6, Red Cell Distribution Width 16.6H, Platelet Count 111L, Mean Platelet Volume 6.4L, Neutrophils (%) (Auto) , Lymphocytes (%) (Auto) , Monocytes (%) (Auto) , Eosinophils (%) (Auto) , Basophils (%) (Auto) 07/20/17 09:40: White Blood Count 13.3H, Red Blood Count 3.05L, Hemoglobin 8.9L, Hematocrit 28.0L, Mean Corpuscular Volume 92, Mean Corpuscular Hemoglobin 29.2, Mean Corpuscular Hemoglobin Concent 31.9L, Red Cell Distribution Width 15.9H, Platelet Count 148L, Mean Platelet Volume 6.1L, Neutrophils (%) (Auto) , Lymphocytes (%) (Auto) , Monocytes (%) (Auto) , Eosinophils (%) (Auto) , Basophils (%) (Auto) , Differential Total Cells Counted 100, Neutrophils % ( Manual) 80H, Lymphocytes % (Manual) 13L, Monocytes % (Manual) 6, Eosinophils % ( Manual) 0, Basophils % (Manual) 0, Band Neutrophils 1, Platelet Estimate DecreasedL, Platelet Morphology Normal, Hypochromasia 1+, Anisocytosis 1+, Sodium Level 130L, Potassium Level 4.5, Chloride Level 90L, Carbon Dioxide Level 21, Anion Gap 19H, Blood Urea Nitrogen 114H, Creatinine 6.3H, Estimat Glomerular Filtration Rate , Glucose Level 163H, Calcium Level 8.4L, Phosphorus Level 8.6H Height (Feet): 5 Height (Inches): 4.00 Weight (Pounds): 130 Objective Elderly AA woman NCAT (+) nares packed CTA RRR abd soft (+) GT (+) b/l AKA OBS NICOLE JOHNSTON Jul 20, 2017 14:26
--- NOTE | 2017-07-20 16:56 | General Progress Note ---
Assessment/Plan Status: stable Assessment/Plan 1. epistaxis - Awaiting ENT Evaluation to see the patient today. 2. Anemia from Eipstaxis - S/P transfusion of 2 PRBC. 3. ESRD on HD - renal following. 4. DM II 5. HTN 6. Hyperlipidemia 7. PVD 8. h/o CVA 9. 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 Subjective Date patient seen: Jul 20, 2017 Time patient seen: 04:45 Constitutional: Reports: weakness HEENT: Reports: other - Epistaxis Cardiovascular: Reports: no symptoms Respiratory: Reports: no symptoms Gastrointestinal/Abdominal: Reports: no symptoms Genitourinary: Reports: no symptoms Neurologic/Psychiatric: Reports: no symptoms Endocrine: Reports: no symptoms Hematologic/Lymphatic: Reports: no symptoms Allergies: Coded Allergies: No Known Allergies (Unverified , 07/16/17) Subjective Pt has been having nose bleeding. She had a pack placed by ER. Still awaiting ENT to evaluate patient for Epistaxis. No sob or chest pain. She had 2 units of PRBC transfusion last night. Objective Last 24 Hour Vital Signs Date Time Temp Pulse Resp B/P (MAP) Pulse Ox O2 Delivery O2 Flow Rate FiO2 07/20/17 15:44 97.9 96 18 122/58 97 Room Air 07/20/17 14:40 Room Air 07/20/17 12:00 96 07/20/17 11:39 97.3 98 20 121/60 99 Room Air 07/20/17 08:00 98.8 97 20 114/55 100 Room Air 07/20/17 08:00 100 07/20/17 04:00 97.5 101 20 143/79 98 Room Air 07/20/17 04:00 98 07/20/17 00:07 97.5 92 20 118/62 99 Room Air 07/20/17 00:00 106 07/19/17 22:37 99.0 07/19/17 20:13 99.1 107 20 123/72 99 Room Air 07/19/17 20:00 113 Intake and Output 07/20/17 07/21/17 19:00 07:00 Intake Total 150 ml Balance 150 ml IV Total 150 ml Laboratory Tests 07/20/17 01:50: White Blood Count 14.3H, Red Blood Count 2.50L, Hemoglobin 7.8L, Hematocrit 23.2L, Mean Corpuscular Volume 93, Mean Corpuscular Hemoglobin 31.3H, Mean Corpuscular Hemoglobin Concent 33.6, Red Cell Distribution Width 16.6H, Platelet Count 111L, Mean Platelet Volume 6.4L, Neutrophils (%) (Auto) , Lymphocytes (%) (Auto) , Monocytes (%) (Auto) , Eosinophils (%) (Auto) , Basophils (%) (Auto) 07/20/17 09:40: White Blood Count 13.3H, Red Blood Count 3.05L, Hemoglobin 8.9L, Hematocrit 28.0L, Mean Corpuscular Volume 92, Mean Corpuscular Hemoglobin 29.2, Mean Corpuscular Hemoglobin Concent 31.9L, Red Cell Distribution Width 15.9H, Platelet Count 148L, Mean Platelet Volume 6.1L, Neutrophils (%) (Auto) , Lymphocytes (%) (Auto) , Monocytes (%) (Auto) , Eosinophils (%) (Auto) , Basophils (%) (Auto) , Differential Total Cells Counted 100, Neutrophils % ( Manual) 80H, Lymphocytes % (Manual) 13L, Monocytes % (Manual) 6, Eosinophils % ( Manual) 0, Basophils % (Manual) 0, Band Neutrophils 1, Platelet Estimate DecreasedL, Platelet Morphology Normal, Hypochromasia 1+, Anisocytosis 1+, Sodium Level 130L, Potassium Level 4.5, Chloride Level 90L, Carbon Dioxide Level 21, Anion Gap 19H, Blood Urea Nitrogen 114H, Creatinine 6.3H, Estimat Glomerular Filtration Rate , Glucose Level 163H, Calcium Level 8.4L, Phosphorus Level 8.6H Height (Feet): 5 Height (Inches): 4.00 Weight (Pounds): 130 General Appearance: no apparent distress, other - mute EENT: other - Epistaxis Neck: non-tender, normal alignment, supple Cardiovascular: normal peripheral pulses, normal rate, regular rhythm Respiratory/Chest: chest wall non-tender, lungs clear, normal breath sounds Abdomen: normal bowel sounds, non tender, soft Neurologic: alert, responsive Skin: warm/dry Lymphatic: normal anterior cervical (L), normal anterior cervical (R), normal posterior cervical (L), normal posterior cervical (R), normal submandibular (L) , normal submandibular (R), normal supraclavicular (L), normal supraclavicular ( R), normal axillary (L), normal axillary (R), normal inguinal (L), normal inguinal (R), normal other ELVA ARRIAZA Jul 20, 2017 16:56
[2017-07-21] MEDS: D5 1/2NS 1,000 ML IV SCH ×2 (00:25→12:28)
[2017-07-21] MEDS: NovoLOG Insulin Flexpen SUBQ SCH ×4 (00:28→18:13)
[2017-07-21 04:38] VITALS: BP 130/65
[2017-07-21] MEDS: Augmentin 250mg/5ml Susp 75ml NG SCH ×3 (06:27→22:27)
[2017-07-21 07:59] VITALS: BP 131/59
--- NOTE | 2017-07-21 08:44 | General Progress Note ---
Assessment/Plan Status: unchanged Assessment/Plan 1. epistaxis - Awaiting ENT Evaluation to see the patient today. 2. Anemia from Eipstaxis - S/P transfusion of 2 PRBC. Today, CBC pending. 3. ESRD on HD - renal following. 4. DM II 5. HTN 6. Hyperlipidemia 7. PVD 8. h/o CVA 9. 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 Subjective Date patient seen: Jul 21, 2017 Time patient seen: 08:30 Constitutional: Reports: weakness HEENT: Reports: other - Epistaxis Cardiovascular: Reports: other - Sinus Tachycardia Respiratory: Reports: no symptoms Gastrointestinal/Abdominal: Reports: no symptoms Genitourinary: Reports: no symptoms Neurologic/Psychiatric: Reports: no symptoms Endocrine: Reports: no symptoms Hematologic/Lymphatic: Reports: no symptoms Allergies: Coded Allergies: No Known Allergies (Unverified , 07/16/17) Subjective Still awaiting ENT to evaluate the patient for Epistaxis. Afebrile. No sob or chest pain. Objective Last 24 Hour Vital Signs Date Time Temp Pulse Resp B/P (MAP) Pulse Ox O2 Delivery O2 Flow Rate FiO2 07/21/17 07:59 98.4 103 20 131/59 99 Room Air 07/21/17 04:38 97.8 109 19 130/65 94 Room Air 109 07/21/17 04:00 102 07/21/17 00:00 108 07/20/17 23:48 97.6 113 20 118/63 96 Room Air 113 07/20/17 20:24 97.2 106 20 133/69 96 Room Air 07/20/17 20:00 108 07/20/17 17:50 Room Air 07/20/17 16:00 105 07/20/17 15:44 97.9 96 18 122/58 97 Room Air 07/20/17 14:40 Room Air 07/20/17 12:00 96 07/20/17 11:39 97.3 98 20 121/60 99 Room Air Laboratory Tests 07/20/17 09:40: White Blood Count 13.3H, Red Blood Count 3.05L, Hemoglobin 8.9L, Hematocrit 28.0L, Mean Corpuscular Volume 92, Mean Corpuscular Hemoglobin 29.2, Mean Corpuscular Hemoglobin Concent 31.9L, Red Cell Distribution Width 15.9H, Platelet Count 148L, Mean Platelet Volume 6.1L, Neutrophils (%) (Auto) , Lymphocytes (%) (Auto) , Monocytes (%) (Auto) , Eosinophils (%) (Auto) , Basophils (%) (Auto) , Differential Total Cells Counted 100, Neutrophils % ( Manual) 80H, Lymphocytes % (Manual) 13L, Monocytes % (Manual) 6, Eosinophils % ( Manual) 0, Basophils % (Manual) 0, Band Neutrophils 1, Platelet Estimate DecreasedL, Platelet Morphology Normal, Hypochromasia 1+, Anisocytosis 1+, Sodium Level 130L, Potassium Level 4.5, Chloride Level 90L, Carbon Dioxide Level 21, Anion Gap 19H, Blood Urea Nitrogen 114H, Creatinine 6.3H, Estimat Glomerular Filtration Rate , Glucose Level 163H, Calcium Level 8.4L, Phosphorus Level 8.6H Height (Feet): 5 Height (Inches): 4.00 Weight (Pounds): 130 General Appearance: no apparent distress EENT: other - Epistaxis Neck: non-tender, supple Cardiovascular: normal rate, other - Sinus tachy Respiratory/Chest: chest wall non-tender, lungs clear Abdomen: normal bowel sounds, non tender, soft Extremities: normal range of motion, non-tender Edema: mild edema Neurologic: responsive Skin: warm/dry Lymphatic: normal anterior cervical (L), normal anterior cervical (R), normal posterior cervical (L), normal posterior cervical (R), normal submandibular (L) , normal submandibular (R), normal supraclavicular (L), normal supraclavicular ( R), normal axillary (L), normal axillary (R), normal inguinal (L), normal inguinal (R), normal other ELVA ARRIAZA Jul 21, 2017 08:44
[2017-07-21] MEDS: Allopurinol 100mg Tab ORAL SCH (09:57)
[2017-07-21 11:37] VITALS: BP 122/68
[2017-07-21 11:45] LABS: BASOPHILS % (AUTO) 0.5 % (0.0-2.0); MEAN CORPUSCULAR HGB CONC 31.6 G/DL (32.0-36.0); MEAN CORPUSCULAR VOLUME 92 FL (80-99); MEAN PLATELET VOLUME 6.2 FL (6.5-10.1); MONOCYTES % (AUTO) 8.9 % (1.0-10.0); NEUTROPHILS % (AUTO) 82.7 % (45.0-75.0); PLATELET COUNT 142 K/UL (150-450); RED BLOOD COUNT 3.07 M/UL (4.20-5.40); RED CELL DISTRIBUTION WIDTH 15.8 % (11.6-14.8); WHITE BLOOD COUNT 11.5 K/UL (4.8-10.8)
[2017-07-21] MEDS ORDERED: D5 1/2NS 1000ml IV ONE (14:02)
[2017-07-21] MEDS ORDERED: Sterile Water Irrig 1000ml IRRIG ONE (14:02)
[2017-07-21 15:36] VITALS: BP 130/65
--- NOTE | 2017-07-21 17:54 | Wound Nurse Progress Note ---
Wound RN Progress Note Wound Consult #1 Sacral scattered III pressure ulcer #2 Left inner thigh denuded blister #3 Left ischial tuberosity scattered stage II pressure ulcer #4 Right buttocks stage II pressure ulcer #5 Left breast dry scab #6 Perineal chemical burn with erosion #7 Left BKA stump site with steri-strips Reassessed this Pt no deterioration noted at this time. Will cont same treatment and recommendations. TRUDY TOMLIN RN Jul 21, 2017 17:54
--- NOTE | 2017-07-21 18:42 | Nephrology Progress Note ---
Assessment/Plan Problem List: (1) Epistaxis (2) ESRD (end stage renal disease) on dialysis (3) DM (diabetes mellitus) (4) HTN (hypertension) Plan HD tomorrow follow labs Discussed with Dr Diamond Subjective Subjective all noted Objective Objective Last 24 Hour Vital Signs Date Time Temp Pulse Resp B/P (MAP) Pulse Ox O2 Delivery O2 Flow Rate FiO2 07/21/17 16:00 94 07/21/17 15:36 98.6 97 20 130/65 99 Room Air 07/21/17 12:00 84 07/21/17 11:37 98.0 99 20 122/68 99 Room Air 07/21/17 08:00 85 07/21/17 07:59 98.4 103 20 131/59 99 Room Air 07/21/17 04:38 97.8 109 19 130/65 94 Room Air 109 07/21/17 04:00 102 07/21/17 00:00 108 07/20/17 23:48 97.6 113 20 118/63 96 Room Air 113 07/20/17 20:24 97.2 106 20 133/69 96 Room Air 07/20/17 20:00 108 Intake and Output 07/21/17 07/22/17 19:00 07:00 Intake Total 1110 ml Balance 1110 ml Intake Oral 360 ml IV Total 750 ml # Voids 2 # Bowel Movements 5 Laboratory Tests 07/21/17 10:30: White Blood Count 11.5H, Red Blood Count 3.07L, Hemoglobin 8.9L, Hematocrit 28.2L, Mean Corpuscular Volume 92, Mean Corpuscular Hemoglobin 29.0, Mean Corpuscular Hemoglobin Concent 31.6L, Red Cell Distribution Width 15.8H, Platelet Count 142L, Mean Platelet Volume 6.2L, Neutrophils (%) (Auto) 82.7H, Lymphocytes (%) (Auto) 8.0L, Monocytes (%) (Auto) 8.9, Eosinophils (%) (Auto) 0.0, Basophils (%) (Auto) 0.5 Height (Feet): 5 Height (Inches): 4.00 Weight (Pounds): 130 ELISAESEQUIEL Jul 21, 2017 18:42
[2017-07-21 20:05] VITALS: BP 122/61
--- NOTE | 2017-07-21 20:43 | General Progress Note ---
Assessment/Plan Assessment/Plan Assessment - epistaxis - Anemia - ESRD - OBS - Dysphagia/GT Recommendations - ENT eval - GT Feeds - Monitor H&H - RBC Tx PRN Subjective Allergies: Coded Allergies: No Known Allergies (Unverified , 07/16/17) Subjective above noted still some nose bleeding nonverbal tolerating TF - renal formula Objective Last 24 Hour Vital Signs Date Time Temp Pulse Resp B/P (MAP) Pulse Ox O2 Delivery O2 Flow Rate FiO2 07/21/17 20:05 99.3 69 17 122/61 100 Room Air 07/21/17 16:00 94 07/21/17 15:36 98.6 97 20 130/65 99 Room Air 07/21/17 12:00 84 07/21/17 11:37 98.0 99 20 122/68 99 Room Air 07/21/17 08:00 85 07/21/17 07:59 98.4 103 20 131/59 99 Room Air 07/21/17 04:38 97.8 109 19 130/65 94 Room Air 109 07/21/17 04:00 102 07/21/17 00:00 108 07/20/17 23:48 97.6 113 20 118/63 96 Room Air 113 Intake and Output 07/21/17 07/22/17 19:00 07:00 Intake Total 1085 ml Balance 1085 ml Free Water 150 ml IV Total 900 ml Tube Feeding 35 ml # Bowel Movements 5 Laboratory Tests 07/21/17 10:30: White Blood Count 11.5H, Red Blood Count 3.07L, Hemoglobin 8.9L, Hematocrit 28.2L, Mean Corpuscular Volume 92, Mean Corpuscular Hemoglobin 29.0, Mean Corpuscular Hemoglobin Concent 31.6L, Red Cell Distribution Width 15.8H, Platelet Count 142L, Mean Platelet Volume 6.2L, Neutrophils (%) (Auto) 82.7H, Lymphocytes (%) (Auto) 8.0L, Monocytes (%) (Auto) 8.9, Eosinophils (%) (Auto) 0.0, Basophils (%) (Auto) 0.5 Height (Feet): 5 Height (Inches): 4.00 Weight (Pounds): 130 Objective Elderly AA woman NCAT (+) nares packed CTA RRR abd soft (+) GT (+) b/l AKA OBS NICOLE JOHNSTON Jul 21, 2017 20:43
[2017-07-21 23:49] VITALS: BP 124/65
[2017-07-22] VITALS: BP 123/59
[2017-07-22] MEDS: NovoLOG Insulin Flexpen SUBQ SCH ×4 (00:46→17:54)
[2017-07-22] MEDS: D5 1/2NS 1,000 ML IV SCH (01:46)
--- NOTE | 2017-07-22 02:15 | Consultation ---
DATE OF CONSULTATION: 07/21/2017 Head and Neck Surgery, ENT Consult REQUESTING PHYSICIAN: Aftab Arnold M.D. CONSULTING PHYSICIAN: Neto Diamond M.D. INDICATIONS FOR CONSULTATION: I have been asked to see the patient regarding epistaxis. I actually was contacted last Wednesday, but I was out of town and told Dr. Arnold I would not be back till Wednesday and will be able to see the patient till today, which I am doing. I did not anticipate the patient still being here. They could not find another ENT. So, I am here. HISTORY OF PRESENT ILLNESS: This is an 82-year-old female, who has a history of GI bleed, hypertension, diabetes, and end-stage renal disease, on dialysis, who was admitted with epistaxis, anterior and posterior pack was placed. She evidently continues to bleed. She was transfused two units of packed red blood cells. Her hematocrit is now stable the last few days. Her hemoglobin is 8.9 and hematocrit 28. PAST MEDICAL HISTORY: Diabetes. MEDICATIONS: Include Pravachol, Augmentin, Zyloprim, Protonix, NovoLog, dextrose, [place], Tylenol, and Zofran. PHYSICAL EXAMINATION: VITAL SIGNS: She is 162.56 centimeters, 58.96 kilograms, BMI 23.3 kilograms/meter square. Her O2 has been 99%. Her blood pressure is stable. Her heart rates in the 90s. Temperature is normal. HEENT: Head: Normocephalic. Ears: Positive light reflex. Normal canals. Nose: She has a port in her left nostril. NECK: No masses. ASSESSMENT: Epistaxis, which appears to be stabilized, but she is not at a point yet to pull out the packing. PLAN: I have removed 2 mL because the nurse told me she bled about an hour ago. I will go back and check on that. If she does not bleed overnight, I will remove another couple of mL, maybe even 4 or 5 tomorrow. Leave that for a day, then remove the final 5 mL. If she continues not to have any bleeding issues, then remove the pack. The reason I am not pulling the pack out now is removing it itself or remove the scab and cause bleeding. Also, when she starts to bleed, it is easier just to reinject the ports rather than put the whole device back in her nose. Thank you very much for asking my opinion in the care and treatment of this patient. Neto Diamond M.D. DR: Emir JOB#: [id number] CC:
[2017-07-22 03:50] VITALS: BP 142/76
[2017-07-22] MEDS: Augmentin 250mg/5ml Susp 75ml NG SCH ×3 (05:46→21:03)
[2017-07-22 08:28] VITALS: BP 140/70
--- NOTE | 2017-07-22 10:15 | Nephrology Progress Note ---
Assessment/Plan Problem List: (1) Epistaxis (2) ESRD (end stage renal disease) on dialysis (3) DM (diabetes mellitus) (4) HTN (hypertension) Plan HD today follow labs Discussed with Dr Diamond Subjective Subjective In NAD Objective Objective Last 24 Hour Vital Signs Date Time Temp Pulse Resp B/P (MAP) Pulse Ox O2 Delivery O2 Flow Rate FiO2 07/22/17 08:28 98.6 100 20 140/70 96 Room Air 07/22/17 04:00 90 07/22/17 03:50 97.2 89 18 142/76 95 Room Air 07/22/17 00:02 99.5 07/22/17 00:00 97 07/21/17 23:49 100.0 91 19 124/65 94 Room Air 07/21/17 20:05 99.3 69 17 122/61 100 Room Air 07/21/17 20:00 98 07/21/17 16:00 94 07/21/17 15:36 98.6 97 20 130/65 99 Room Air 07/21/17 12:00 84 07/21/17 11:37 98.0 99 20 122/68 99 Room Air Laboratory Tests 07/21/17 10:30: White Blood Count 11.5H, Red Blood Count 3.07L, Hemoglobin 8.9L, Hematocrit 28.2L, Mean Corpuscular Volume 92, Mean Corpuscular Hemoglobin 29.0, Mean Corpuscular Hemoglobin Concent 31.6L, Red Cell Distribution Width 15.8H, Platelet Count 142L, Mean Platelet Volume 6.2L, Neutrophils (%) (Auto) 82.7H, Lymphocytes (%) (Auto) 8.0L, Monocytes (%) (Auto) 8.9, Eosinophils (%) (Auto) 0.0, Basophils (%) (Auto) 0.5 Height (Feet): 5 Height (Inches): 4.00 Weight (Pounds): 130 Cardiovascular: normal rate Respiratory/Chest: lungs clear Extremities: moderate edema - ESEQUIEL Martinez Jul 22, 2017 10:15
--- NOTE | 2017-07-22 10:22 | General Progress Note ---
Assessment/Plan Assessment/Plan Assessment - epistaxis - Anemia - ESRD - OBS - Dysphagia/GT Recommendations - ENT f/u - GT Feeds - Monitor H&H - RBC Tx PRN Subjective Allergies: Coded Allergies: No Known Allergies (Unverified , 07/16/17) Subjective above noted ENT eval reviewed nonverbal tolerating TF - renal formula Objective Last 24 Hour Vital Signs Date Time Temp Pulse Resp B/P (MAP) Pulse Ox O2 Delivery O2 Flow Rate FiO2 07/22/17 08:28 98.6 100 20 140/70 96 Room Air 07/22/17 04:00 90 07/22/17 03:50 97.2 89 18 142/76 95 Room Air 07/22/17 00:02 99.5 07/22/17 00:00 97 07/21/17 23:49 100.0 91 19 124/65 94 Room Air 07/21/17 20:05 99.3 69 17 122/61 100 Room Air 07/21/17 20:00 98 07/21/17 16:00 94 07/21/17 15:36 98.6 97 20 130/65 99 Room Air 07/21/17 12:00 84 07/21/17 11:37 98.0 99 20 122/68 99 Room Air Laboratory Tests 07/21/17 10:30: White Blood Count 11.5H, Red Blood Count 3.07L, Hemoglobin 8.9L, Hematocrit 28.2L, Mean Corpuscular Volume 92, Mean Corpuscular Hemoglobin 29.0, Mean Corpuscular Hemoglobin Concent 31.6L, Red Cell Distribution Width 15.8H, Platelet Count 142L, Mean Platelet Volume 6.2L, Neutrophils (%) (Auto) 82.7H, Lymphocytes (%) (Auto) 8.0L, Monocytes (%) (Auto) 8.9, Eosinophils (%) (Auto) 0.0, Basophils (%) (Auto) 0.5 Height (Feet): 5 Height (Inches): 4.00 Weight (Pounds): 130 Objective Elderly AA woman NCAT (+) nares packed CTA RRR abd soft (+) GT (+) b/l AKA OBS NICOLE JOHNSTON Jul 22, 2017 10:22
[2017-07-22] MEDS: Allopurinol 100mg Tab ORAL SCH (10:25)
[2017-07-22 11:47] VITALS: BP 109/58
--- NOTE | 2017-07-22 16:04 | General Progress Note ---
Assessment/Plan Status: unchanged Assessment/Plan 1. epistaxis - ENT following patient. 2. Anemia from Eipstaxis - S/P transfusion of 2 PRBC. Today, CBC pending. 3. ESRD on HD - renal following. 4. DM II 5. HTN 6. Hyperlipidemia 7. PVD 8. h/o CVA 9. 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 Subjective Date patient seen: Jul 22, 2017 Time patient seen: 03:35 Constitutional: Reports: weakness HEENT: Reports: no symptoms Cardiovascular: Reports: no symptoms Respiratory: Reports: no symptoms Gastrointestinal/Abdominal: Reports: no symptoms Genitourinary: Reports: no symptoms Neurologic/Psychiatric: Reports: no symptoms Endocrine: Reports: no symptoms Hematologic/Lymphatic: Reports: no symptoms Allergies: Coded Allergies: No Known Allergies (Unverified , 07/16/17) Subjective Today, she had slight oozing blood from nose She had low grade fever as well. No sob or chest pain. labs fro today is pending. Objective Last 24 Hour Vital Signs Date Time Temp Pulse Resp B/P (MAP) Pulse Ox O2 Delivery O2 Flow Rate FiO2 07/22/17 12:00 90 07/22/17 11:47 98.2 99 20 109/58 99 Room Air 07/22/17 08:28 98.6 100 20 140/70 96 Room Air 07/22/17 08:00 90 07/22/17 04:00 90 07/22/17 03:50 97.2 89 18 142/76 95 Room Air 07/22/17 00:02 99.5 07/22/17 00:00 97 07/21/17 23:49 100.0 91 19 124/65 94 Room Air 07/21/17 20:05 99.3 69 17 122/61 100 Room Air 07/21/17 20:00 98 07/21/17 16:00 94 Intake and Output 07/22/17 07/23/17 19:00 07:00 # Bowel Movements 1 Height (Feet): 5 Height (Inches): 4.00 Weight (Pounds): 130 General Appearance: no apparent distress, other - mute EENT: other - epistaxis Neck: non-tender, supple Cardiovascular: normal rate, regular rhythm Respiratory/Chest: lungs clear, no respiratory distress Abdomen: normal bowel sounds, non tender, soft Extremities: non-tender Edema: mild edema Neurologic: responsive Skin: warm/dry Lymphatic: normal anterior cervical (L), normal anterior cervical (R), normal posterior cervical (L), normal posterior cervical (R), normal submandibular (L) , normal submandibular (R), normal supraclavicular (L), normal supraclavicular ( R), normal axillary (L), normal axillary (R), normal inguinal (L), normal inguinal (R), normal other ELVA ARRIAZA Jul 22, 2017 16:04
[2017-07-22 16:24] VITALS: BP 118/69
[2017-07-22 18:09] LABS: BASOPHILS % (AUTO) 0.7 % (0.0-2.0); LYMPHOCYTES % (AUTO) 9.2 % (20.0-45.0); MEAN CORPUSCULAR HEMOGLOBIN 31.2 PG (27.0-31.0); MEAN CORPUSCULAR HGB CONC 35.4 G/DL (32.0-36.0); MEAN CORPUSCULAR VOLUME 88 FL (80-99); MEAN PLATELET VOLUME 5.8 FL (6.5-10.1); MONOCYTES % (AUTO) 8.7 % (1.0-10.0); NEUTROPHILS % (AUTO) 81.4 % (45.0-75.0); PLATELET COUNT 158 K/UL (150-450); RED BLOOD COUNT 2.97 M/UL (4.20-5.40); RED CELL DISTRIBUTION WIDTH 15.2 % (11.6-14.8); WHITE BLOOD COUNT 9.3 K/UL (4.8-10.8)
[2017-07-22 18:29] LABS: CALCIUM 8.9 mg/dL (8.6-10.2); CARBON DIOXIDE 25 mEQ/L (20-30); CHLORIDE 95 mEQ/L (98-107); HEMOLYSIS 3; PHOSPHORUS 3.5 mg/dL (2.5-4.8); SODIUM 135 mEQ/L (135-145)
[2017-07-22 18:34] LABS: ANION GAP 15 (5-15)
[2017-07-22 18:39] LABS: POTASSIUM 2.6 mEQ/L (3.4-4.9)
[2017-07-22 20:00] VITALS: BP 122/78
[2017-07-23] VITALS (7 sets, daily range): BP systolic 117–137; BP diastolic 50–62
[2017-07-23] MEDS: Augmentin 250mg/5ml Susp 75ml NG SCH ×3 (05:38→21:55)
[2017-07-23] MEDS: NovoLOG Insulin Flexpen SUBQ SCH ×4 (05:41→17:15)
--- NOTE | 2017-07-23 08:52 | General Progress Note ---
Assessment/Plan Status: stable Assessment/Plan 1. epistaxis - ENT following patient. 2. Anemia from Eipstaxis - S/P transfusion of 2 PRBC. CBC stable now. 3. ESRD on HD - renal following. 4. DM II - controlled. 5. HTN - controlled. 6. Hyperlipidemia 7. PVD 8. h/o CVA 9. 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 Subjective Date patient seen: Jul 23, 2017 Time patient seen: 08:35 Constitutional: Reports: weakness HEENT: Reports: no symptoms Cardiovascular: Reports: no symptoms Respiratory: Reports: no symptoms Gastrointestinal/Abdominal: Reports: no symptoms Genitourinary: Reports: no symptoms, other - on tube feeding Neurologic/Psychiatric: Reports: no symptoms Endocrine: Reports: no symptoms Hematologic/Lymphatic: Reports: no symptoms Allergies: Coded Allergies: No Known Allergies (Unverified , 07/16/17) Subjective doing well today. ENT is following the patient. WBC improved as well. Objective Last 24 Hour Vital Signs Date Time Temp Pulse Resp B/P (MAP) Pulse Ox O2 Delivery O2 Flow Rate FiO2 07/23/17 04:00 98.1 89 22 119/62 98 Room Air 07/23/17 04:00 73 07/23/17 00:00 93 07/23/17 00:00 98.1 96 19 123/59 98 Room Air 07/22/17 20:00 99.7 101 21 122/78 100 Room Air 07/22/17 20:00 96 07/22/17 17:00 Room Air 07/22/17 16:24 97.9 94 20 118/69 97 Room Air 07/22/17 16:00 90 07/22/17 13:55 Room Air 07/22/17 12:00 90 07/22/17 11:47 98.2 99 20 109/58 99 Room Air Laboratory Tests 07/22/17 17:00: White Blood Count 9.3, Red Blood Count 2.97L, Hemoglobin 9.3L, Hematocrit 26.2L , Mean Corpuscular Volume 88, Mean Corpuscular Hemoglobin 31.2H, Mean Corpuscular Hemoglobin Concent 35.4, Red Cell Distribution Width 15.2H, Platelet Count 158, Mean Platelet Volume 5.8L, Neutrophils (%) (Auto) 81.4H, Lymphocytes (%) (Auto) 9.2L, Monocytes (%) (Auto) 8.7, Eosinophils (%) (Auto) 0.0, Basophils (%) (Auto) 0.7, Sodium Level 135, Potassium Level 2.6*L, Chloride Level 95L, Carbon Dioxide Level 25, Anion Gap 15, Blood Urea Nitrogen 34H, Creatinine 3.0H, Estimat Glomerular Filtration Rate , Glucose Level 89, Calcium Level 8.9, Phosphorus Level 3.5 Height (Feet): 5 Height (Inches): 4.00 Weight (Pounds): 130 General Appearance: no apparent distress EENT: other - Epistaxis improved with ballon in place Neck: non-tender, normal alignment, supple Cardiovascular: normal rate, regular rhythm Respiratory/Chest: chest wall non-tender, lungs clear, normal breath sounds Abdomen: normal bowel sounds, non tender, soft Extremities: normal range of motion, non-tender Neurologic: responsive Skin: warm/dry Lymphatic: normal anterior cervical (L), normal anterior cervical (R), normal posterior cervical (L), normal posterior cervical (R), normal submandibular (L) , normal submandibular (R), normal supraclavicular (L), normal supraclavicular ( R), normal axillary (L), normal axillary (R), normal inguinal (L), normal inguinal (R), normal other ELVA ARRIAZA Jul 23, 2017 08:52
[2017-07-23 09:47] LABS: BASOPHILS % (AUTO) 0.5 % (0.0-2.0); MEAN CORPUSCULAR HEMOGLOBIN 29.2 PG (27.0-31.0); MEAN CORPUSCULAR HGB CONC 31.5 G/DL (32.0-36.0); MEAN CORPUSCULAR VOLUME 93 FL (80-99); MEAN PLATELET VOLUME 6.5 FL (6.5-10.1); MONOCYTES % (AUTO) 9.4 % (1.0-10.0); NEUTROPHILS % (AUTO) 80.1 % (45.0-75.0); PLATELET COUNT 166 K/UL (150-450); RED CELL DISTRIBUTION WIDTH 15.5 % (11.6-14.8); WHITE BLOOD COUNT 7.2 K/UL (4.8-10.8)
[2017-07-23] MEDS: Allopurinol 100mg Tab ORAL SCH (10:04)
[2017-07-23 10:08] LABS: ANION GAP 13 (5-15); CALCIUM 9.2 mg/dL (8.6-10.2); CARBON DIOXIDE 26 mEQ/L (20-30); CHLORIDE 95 mEQ/L (98-107); CREATININE 4.3 mg/dL (0.5-0.9); HEMOLYSIS 3; POTASSIUM 3.1 mEQ/L (3.4-4.9); SODIUM 134 mEQ/L (135-145)
--- NOTE | 2017-07-23 10:40 | Diagnostic Imaging Report ---
Indication: Dyspnea Comparison: None A single view chest radiograph was obtained. Findings: Lung volumes are low. No obvious infiltrate or pulmonary edema identified. Calcification noted in the left hilum. The heart is mildly enlarged. Bones are osteopenic. Surgical clips noted in the right axilla. Impression: No acute cardiopulmonary abnormalities identified. Old granulomatous disease Status post right axillary surgery
--- NOTE | 2017-07-23 13:41 | Nephrology Progress Note ---
Assessment/Plan Problem List: (1) Epistaxis (2) ESRD (end stage renal disease) on dialysis (3) DM (diabetes mellitus) (4) HTN (hypertension) Plan HD tomorrow start epogen check iron panel Subjective Subjective In NAD Objective Objective Last 24 Hour Vital Signs Date Time Temp Pulse Resp B/P (MAP) Pulse Ox O2 Delivery O2 Flow Rate FiO2 07/23/17 12:00 97.9 89 21 124/62 98 Room Air 07/23/17 08:00 97.8 102 21 117/58 98 Room Air 07/23/17 08:00 97 07/23/17 04:00 98.1 89 22 119/62 98 Room Air 07/23/17 04:00 73 07/23/17 00:00 93 07/23/17 00:00 98.1 96 19 123/59 98 Room Air 07/22/17 20:00 99.7 101 21 122/78 100 Room Air 07/22/17 20:00 96 07/22/17 17:00 Room Air 07/22/17 16:24 97.9 94 20 118/69 97 Room Air 07/22/17 16:00 90 07/22/17 13:55 Room Air Intake and Output 07/23/17 07/24/17 19:00 07:00 Intake Total 250 ml Balance 250 ml Free Water 50 ml Tube Feeding 140 ml Other 60 ml # Bowel Movements 2 Laboratory Tests 07/22/17 17:00: White Blood Count 9.3, Red Blood Count 2.97L, Hemoglobin 9.3L, Hematocrit 26.2L , Mean Corpuscular Volume 88, Mean Corpuscular Hemoglobin 31.2H, Mean Corpuscular Hemoglobin Concent 35.4, Red Cell Distribution Width 15.2H, Platelet Count 158, Mean Platelet Volume 5.8L, Neutrophils (%) (Auto) 81.4H, Lymphocytes (%) (Auto) 9.2L, Monocytes (%) (Auto) 8.7, Eosinophils (%) (Auto) 0.0, Basophils (%) (Auto) 0.7, Sodium Level 135, Potassium Level 2.6*L, Chloride Level 95L, Carbon Dioxide Level 25, Anion Gap 15, Blood Urea Nitrogen 34H, Creatinine 3.0H, Estimat Glomerular Filtration Rate , Glucose Level 89, Calcium Level 8.9, Phosphorus Level 3.5 07/23/17 09:15: White Blood Count 7.2, Red Blood Count 2.90L, Hemoglobin 8.5L, Hematocrit 26.9L , Mean Corpuscular Volume 93, Mean Corpuscular Hemoglobin 29.2, Mean Corpuscular Hemoglobin Concent 31.5L, Red Cell Distribution Width 15.5H, Platelet Count 166, Mean Platelet Volume 6.5, Neutrophils (%) (Auto) 80.1H, Lymphocytes (%) (Auto) 10.0L, Monocytes (%) (Auto) 9.4, Eosinophils (%) (Auto) 0.0, Basophils (%) (Auto) 0.5, Sodium Level 134L, Potassium Level 3.1L, Chloride Level 95L, Carbon Dioxide Level 26, Anion Gap 13, Blood Urea Nitrogen 51H, Creatinine 4.3H, Estimat Glomerular Filtration Rate , Glucose Level 123H, Calcium Level 9.2 Height (Feet): 5 Height (Inches): 4.00 Weight (Pounds): 130 Cardiovascular: normal rate Respiratory/Chest: lungs clear Extremities: trace edema ESEQUIEL PÉREZ Jul 23, 2017 13:41
[2017-07-23] MEDS ORDERED: Milk of Magnesia 30ml Ud ORAL PRN (15:00)
--- NOTE | 2017-07-23 16:46 | General Progress Note ---
Progress Note Progress Note ENT note S: no bleding x 3 days O: Packing removed, waited 20 minutes-no bleeding A: packing removed, epistaxis controlled for the time being. P: Note dictated-pt to see me in my office 10 days. Per ENT-pt can go home Other reasons may exist to keep her here, discharge up to PMD. WILLY WILL Jul 23, 2017 16:46
--- NOTE | 2017-07-23 17:03 | General Progress Note ---
Assessment/Plan Assessment/Plan Assessment - epistaxis - Anemia - ESRD - OBS - Dysphagia/GT Recommendations - GT Feeds - Monitor H&H - RBC Tx PRN - I will return Wednesday to see patient Subjective Allergies: Coded Allergies: No Known Allergies (Unverified , 07/16/17) Subjective above noted nose bleeding stopped nonverbal tolerating TF - renal formula Objective Last 24 Hour Vital Signs Date Time Temp Pulse Resp B/P (MAP) Pulse Ox O2 Delivery O2 Flow Rate FiO2 07/23/17 16:00 93 07/23/17 16:00 98.6 91 21 137/59 98 Room Air 07/23/17 12:00 97.9 89 21 124/62 98 Room Air 07/23/17 12:00 87 07/23/17 08:00 97.8 102 21 117/58 98 Room Air 07/23/17 08:00 97 07/23/17 04:00 98.1 89 22 119/62 98 Room Air 07/23/17 04:00 73 07/23/17 00:00 93 07/23/17 00:00 98.1 96 19 123/59 98 Room Air 07/22/17 20:00 99.7 101 21 122/78 100 Room Air 07/22/17 20:00 96 Intake and Output 07/23/17 07/24/17 19:00 07:00 Intake Total 320 ml Balance 320 ml Free Water 50 ml Tube Feeding 210 ml Other 60 ml # Bowel Movements 2 Laboratory Tests 07/23/17 09:15: White Blood Count 7.2, Red Blood Count 2.90L, Hemoglobin 8.5L, Hematocrit 26.9L , Mean Corpuscular Volume 93, Mean Corpuscular Hemoglobin 29.2, Mean Corpuscular Hemoglobin Concent 31.5L, Red Cell Distribution Width 15.5H, Platelet Count 166, Mean Platelet Volume 6.5, Neutrophils (%) (Auto) 80.1H, Lymphocytes (%) (Auto) 10.0L, Monocytes (%) (Auto) 9.4, Eosinophils (%) (Auto) 0.0, Basophils (%) (Auto) 0.5, Sodium Level 134L, Potassium Level 3.1L, Chloride Level 95L, Carbon Dioxide Level 26, Anion Gap 13, Blood Urea Nitrogen 51H, Creatinine 4.3H, Estimat Glomerular Filtration Rate , Glucose Level 123H, Calcium Level 9.2 Height (Feet): 5 Height (Inches): 4.00 Weight (Pounds): 130 Objective Elderly AA woman NCAT CTA RRR abd soft (+) GT (+) b/l AKA OBS NICOLE JOHNSTON Jul 23, 2017 17:03
[2017-07-23] MEDS ORDERED: Epogen (for ESRD on dialysis) SUBQ SCH (21:00)
[2017-07-23] MEDS ORDERED: Zolpidem 5mg tab GT PRN (23:30)
[2017-07-24] MEDS: NovoLOG Insulin Flexpen SUBQ SCH ×3 (00:16→12:34)
[2017-07-24] MEDS ORDERED: Acetaminophen 650mg/20.3ml GT PRN (01:00)
[2017-07-24] MEDS ORDERED: Norco 5mg/325mg tab GT PRN (01:45)
[2017-07-24 03:59] VITALS: BP 129/72
--- NOTE | 2017-07-24 05:15 | Progress Note ---
DATE: 07/23/2017 HEAD AND NECK SURGERY/ENT CONSULT SUBJECTIVE: The patient has had no bleeding over the past few days. I have been speaking with the nurses and they have been taking out 2 to 3 mL of air and fluid from both nasal balloons over the last couple of days. As of this morning, she had no air or fluid in either balloon and has had no bleeding as of late this afternoon. OBJECTIVE: No bleeding. Stent was in place. I then pulled it. A 20 minutes later, I went back and there was still no bleeding. ASSESSMENT: Epistaxis has been controlled. PLAN: I would like to let everything settle down because she had it packed for over a week and then get a look in my office in 10 to 14 days once the inflammation goes down with a flexible scope to make sure there are no other areas of bleeding. Please make sure you keep her INR in check. Neto Diamond M.D. DR: PATRICIA JOB#: [id number] CC:
[2017-07-24] MEDS: Augmentin 250mg/5ml Susp 75ml GT SCH ×2 (06:15→14:22)
[2017-07-24 08:00] VITALS: BP 138/69
[2017-07-24 08:46] LABS: ANION GAP 17 (5-15); CALCIUM 9.4 mg/dL (8.6-10.2); CARBON DIOXIDE 23 mEQ/L (20-30); CHLORIDE 92 mEQ/L (98-107); CREATININE 5.4 mg/dL (0.5-0.9); HEMOLYSIS 13; PHOSPHORUS 5.8 mg/dL (2.5-4.8); POTASSIUM 3.5 mEQ/L (3.4-4.9); SODIUM 132 mEQ/L (135-145)
[2017-07-24 08:47] LABS: HEMOLYSIS 35; IRON 34 ug/dL (37-145); TOTAL IRON BINDING CAPACITY 117 ug/dL (250-400)
[2017-07-24] MEDS ORDERED: Allopurinol 100mg Tab GT SCH (09:00)
--- NOTE | 2017-07-24 09:18 | General Progress Note ---
Assessment/Plan Problem List: (1) Epistaxis ICD Codes: R04.0 - Epistaxis SNOMED: 702259209, 84057006 (2) GI bleed ICD Codes: K92.2 - Gastrointestinal hemorrhage, unspecified SNOMED: 19078772 Qualifiers: Qualified Codes: K92.2 - Gastrointestinal hemorrhage, unspecified (3) HTN (hypertension) ICD Codes: I10 - Essential (primary) hypertension SNOMED: 41083076 (4) DM (diabetes mellitus) ICD Codes: E11.9 - Type 2 diabetes mellitus without complications SNOMED: 77381045 (5) ESRD (end stage renal disease) on dialysis ICD Codes: N18.6 - End stage renal disease; Z99.2 - Dependence on renal dialysis SNOMED: 109751633 Assessment/Plan GTF stable labs on HD dc planning per primary team Subjective ROS Limited/Unobtainable: No Allergies: Coded Allergies: No Known Allergies (Unverified , 07/16/17) Objective Last 24 Hour Vital Signs Date Time Temp Pulse Resp B/P (MAP) Pulse Ox O2 Delivery O2 Flow Rate FiO2 07/24/17 08:00 98.2 83 21 138/69 99 Room Air 07/24/17 04:00 79 07/24/17 03:59 97.9 80 19 129/72 100 Room Air 07/24/17 00:00 85 07/23/17 23:58 98.1 84 18 124/61 98 Room Air 07/23/17 20:05 98.7 84 20 118/50 97 Room Air 07/23/17 20:00 84 07/23/17 16:00 93 07/23/17 16:00 98.6 91 21 137/59 98 Room Air 07/23/17 12:00 97.9 89 21 124/62 98 Room Air 07/23/17 12:00 87 Laboratory Tests 07/24/17 07:40: Sodium Level 132L, Potassium Level 3.5, Chloride Level 92L, Carbon Dioxide Level 23, Anion Gap 17H, Blood Urea Nitrogen 65H, Creatinine 5.4H, Estimat Glomerular Filtration Rate , Glucose Level 108H, Calcium Level 9.4, Phosphorus Level 5.8H, Iron Level 34L, Total Iron Binding Capacity 117L, Percent Iron Saturation 29, Unsaturated Iron Binding 83L Height (Feet): 5 Height (Inches): 4.00 Weight (Pounds): 130 General Appearance: no apparent distress EENT: normal ENT inspection Neck: supple Cardiovascular: normal rate Respiratory/Chest: decreased breath sounds Abdomen: normal bowel sounds, non tender, soft Extremities: non-tender DULCE CHAO Jul 24, 2017 09:18
--- NOTE | 2017-07-24 11:11 | Infectious Diseases Prog Note ---
Assessment/Plan Problems: (1) Epistaxis Assessment & Plan: S/P packing and stent placement , continue augmantin for 7 days after stent is removed , follow up with ENT (2) MRSA nasal colonization Assessment & Plan: will avoid bactroban topical since she has epistaxis (3) Colonization with VRE (vancomycin-resistant enterococcus) Assessment & Plan: keep in contact isolation while in hospital (4) DM (diabetes mellitus) Assessment & Plan: recommend tight glycemic control to keep blood glucose between 80-120 (5) ESRD (end stage renal disease) on dialysis Assessment & Plan: renal is following Subjective Allergies: Coded Allergies: No Known Allergies (Unverified , 07/16/17) Objective Vital Signs Last 24 Hour Vital Signs Date Time Temp Pulse Resp B/P (MAP) Pulse Ox O2 Delivery O2 Flow Rate FiO2 07/24/17 08:10 Room Air 07/24/17 08:00 83 07/24/17 08:00 98.2 83 21 138/69 99 Room Air 07/24/17 04:00 79 07/24/17 03:59 97.9 80 19 129/72 100 Room Air 07/24/17 00:00 85 07/23/17 23:58 98.1 84 18 124/61 98 Room Air 07/23/17 20:05 98.7 84 20 118/50 97 Room Air 07/23/17 20:00 84 07/23/17 16:00 93 07/23/17 16:00 98.6 91 21 137/59 98 Room Air 07/23/17 12:00 97.9 89 21 124/62 98 Room Air 07/23/17 12:00 87 Height (Feet): 5 Height (Inches): 4.00 Weight (Pounds): 130 Laboratory Tests Test 07/24/17 07:40 Sodium Level 132 mEQ/L (135-145) L Potassium Level 3.5 mEQ/L (3.4-4.9) Chloride Level 92 mEQ/L (98-107) L Carbon Dioxide Level 23 mEQ/L (20-30) Anion Gap 17 (5-15) H Blood Urea Nitrogen 65 mg/dL (7-23) H Creatinine 5.4 mg/dL (0.5-0.9) H Estimat Glomerular Filtration Rate mL/min (>60) Glucose Level 108 mg/dL (74-106) H Calcium Level 9.4 mg/dL (8.6-10.2) Phosphorus Level 5.8 mg/dL (2.5-4.8) H Iron Level 34 ug/dL (37-145) L Total Iron Binding Capacity 117 ug/dL (250-400) L Percent Iron Saturation 29 % (15-50) Unsaturated Iron Binding 83 ug/dL (112-346) L Current Medications Medications (Trade) Dose Ordered Sig/Selene Route PRN Reason Start Time Stop Time Status Last Admin Dose Admin Acetaminophen (Tylenol) 650 mg Q4H PRN GT Mild Pain/Temp > 100.5 07/24/17 01:00 08/23/17 00:59 Acetaminophen/ Hydrocodone Bitart ([place] 5/325) 1 tab Q4H PRN GT Severe Pain (Pain Scale 7-10) 07/24/17 01:45 07/31/17 01:44 Allopurinol (Zyloprim) 100 mg DAILY GT 07/24/17 09:00 08/23/17 08:59 Amoxicillin/ Clavulanate Potassium (Augmentin) 250 mg EVERY 8 HOURS GT 07/24/17 06:00 07/25/17 16:29 07/24/17 06:15 Dextrose (Dextrose 50%) STAT PRN IV Hypoglycemia 07/18/17 05:45 08/16/17 05:44 Epoetin Alli (Procrit (for ESRD on dialysis)) 10,000 units WED-WED-WED SUBQ 07/23/17 21:00 08/22/17 20:59 07/23/17 20:58 Insulin Aspart (NovoLOG) EVERY 6 HOURS SUBQ 07/18/17 06:00 08/16/17 05:59 07/24/17 00:16 Lansoprazole (Prevacid) 30 mg DAILY GT 07/24/17 09:00 08/23/17 08:59 Ondansetron HCl (Zofran) 4 mg Q6H PRN IVP Nausea & Vomiting 07/18/17 05:30 08/16/17 05:29 Pravastatin Sodium (Pravachol) 40 mg BEDTIME GT 07/24/17 21:00 08/23/17 20:59 Sodium Chloride 1,000 ml @ 500 mls/hr Q2H PRN IVLG sbp<90 during hd 07/22/17 10:15 08/21/17 10:14 Sodium Chloride 1,000 ml @ 500 mls/hr Q2H PRN IVLG sbp<90 during hd 07/23/17 14:30 07/24/17 23:59 Zolpidem Tartrate (Ambien) 5 mg HSPRN PRN GT Insomnia 07/23/17 23:30 07/30/17 23:29 Morteza Castillo M.D. Jul 24, 2017 11:11
[2017-07-24 12:00] VITALS: BP 119/66
--- NOTE | 2017-07-24 12:00 | General Progress Note ---
Assessment/Plan Status: stable Assessment/Plan 1. epistaxis - Resolved. will be following with ENT in 10 days. D/C to [facility] today. 2. Anemia from Eipstaxis - S/P transfusion of 2 PRBC. H/H stable. 3. ESRD on HD - HD done today. 4. DM II - controlled. 5. HTN - controlled. 6. Hyperlipidemia 7. PVD 8. h/o CVA 9. 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 Packing removed and epistaxis is stopped. Afebrile. No sob or chest pain. Objective Last 24 Hour Vital Signs Date Time Temp Pulse Resp B/P (MAP) Pulse Ox O2 Delivery O2 Flow Rate FiO2 07/24/17 11:15 Room Air 07/24/17 08:10 Room Air 07/24/17 08:00 83 07/24/17 08:00 98.2 83 21 138/69 99 Room Air 07/24/17 04:00 79 07/24/17 03:59 97.9 80 19 129/72 100 Room Air 07/24/17 00:00 85 07/23/17 23:58 98.1 84 18 124/61 98 Room Air 07/23/17 20:05 98.7 84 20 118/50 97 Room Air 07/23/17 20:00 84 07/23/17 16:00 93 07/23/17 16:00 98.6 91 21 137/59 98 Room Air 07/23/17 12:00 97.9 89 21 124/62 98 Room Air 07/23/17 12:00 87 Intake and Output 07/24/17 07/25/17 19:00 07:00 Output Total 2460 ml Balance -2460 ml Hemodialysis UF 2460 ml Laboratory Tests 07/24/17 07:40: Sodium Level 132L, Potassium Level 3.5, Chloride Level 92L, Carbon Dioxide Level 23, Anion Gap 17H, Blood Urea Nitrogen 65H, Creatinine 5.4H, Estimat Glomerular Filtration Rate , Glucose Level 108H, Calcium Level 9.4, Phosphorus Level 5.8H, Iron Level 34L, Total Iron Binding Capacity 117L, Percent Iron Saturation 29, Unsaturated Iron Binding 83L Height (Feet): 5 Height (Inches): 4.00 Weight (Pounds): 130 General Appearance: no apparent distress, alert EENT: normal ENT inspection Neck: non-tender, supple Cardiovascular: normal peripheral pulses, normal rate Respiratory/Chest: chest wall non-tender, lungs clear, normal breath sounds Abdomen: normal bowel sounds, non tender, soft Neurologic: responsive Skin: warm/dry Lymphatic: normal anterior cervical (L), normal anterior cervical (R), normal posterior cervical (L), normal posterior cervical (R), normal submandibular (L) , normal submandibular (R), normal supraclavicular (L), normal supraclavicular ( R), normal axillary (L), normal axillary (R), normal inguinal (L), normal inguinal (R), normal other ELVA ARRIAZA Jul 24, 2017 11:59
[2017-07-24] MEDS ORDERED: AUGMENTIN250 MG/51 GT (12:13)
[2017-07-24] MEDS ORDERED: AMBIEN5 MG GT (12:13)
[2017-07-24] MEDS ORDERED: NORCO 5-325 TA1 EACH GT (12:13)
[2017-07-24] MEDS ORDERED: ZOFRAN 4 MG4 MG/2 ML IVP (12:13)
[2017-07-24] MEDS ORDERED: LANSOPRAZOLE30 MG GT (12:13)
[2017-07-24] MEDS ORDERED: TYLENOL650 MG/20. GT (12:13)
[2017-07-24] MEDS ORDERED: NOVOLOG100 UNITS1 SUBQ (12:13)
[2017-07-24] MEDS ORDERED: ALLOPURINOL100 M1 GT (12:13)
[2017-07-24] MEDS ORDERED: PROCRIT20000 UNI2 SUBQ (12:13)
[2017-07-24] MEDS ORDERED: D50w IV (12:13)
[2017-07-24] MEDS ORDERED: PRAVACHOL20 MG GT (12:13)
[2017-07-24 14:06] LABS: BASOPHILS % (AUTO) 0.9 % (0.0-2.0); EOSINOPHILS % (AUTO) 0.1 % (0.0-3.0); MEAN CORPUSCULAR HEMOGLOBIN 28.6 PG (27.0-31.0); MEAN CORPUSCULAR HGB CONC 30.8 G/DL (32.0-36.0); MEAN CORPUSCULAR VOLUME 93 FL (80-99); MEAN PLATELET VOLUME 6.2 FL (6.5-10.1); MONOCYTES % (AUTO) 8.8 % (1.0-10.0); NEUTROPHILS % (AUTO) 80.3 % (45.0-75.0); PLATELET COUNT 215 K/UL (150-450); RED CELL DISTRIBUTION WIDTH 15.3 % (11.6-14.8); WHITE BLOOD COUNT 7.5 K/UL (4.8-10.8)
[2017-07-24 14:19] LABS: PROTHROMBIN TIME 10.7 SEC (9.30-11.50)
[2017-07-24 16:15] VITALS: BP 123/66
[2017-07-24] MEDS ORDERED: Sterile Water Irrig 1000ml IRRIG ONE (16:17)
[2017-07-24] MEDS ORDERED: D5 1/2NS 1000ml IV ONE (16:17)
--- NOTE | 2017-07-25 | Discharge Summary ---
DATE OF ADMISSION: 07/17/2017 DATE OF DISCHARGE: 07/24/2017 HOSPITAL COURSE: This is an 82-year-old -female with end-stage renal disease, on hemodialysis, who was brought in from [facility] for epistaxis and profuse blood loss. The patient was admitted and had two units of packed RBCs while in the hospital. She had packing of her nostril and ENT was consulted. The patient's nosebleed stopped after a few days and blood loss stopped. The patient originally thought to have a GI bleed, but found out that she has epistaxis instead. She was started on Augmentin to prevent infection from her nosebleed. She lost about four units of blood and received two units while in the hospital. She also had methicillin-resistant Staphylococcus aureus in the nares and colonization and a vancomycin-resistant enterococcus colonization in the rectum. While in the hospital, ENT was consulted Dr. Chapa and GI was consulted for possible GI bleed, but that turned out to be epistaxis. Also, Renal was consulted for hemodialysis as an inpatient. ID was also brought in just for vancomycin-resistant enterococcus colonization and methicillin-resistant Staphylococcus aureus colonization conformation. DISCHARGE DIAGNOSES: 1. Epistaxis. 2. History of cerebrovascular accident and deep vein thrombosis. 3. End-stage renal disease on hemodialysis. 4. Diabetes mellitus type 2. 5. Hyperlipidemia. 6. Peripheral vascular disease. 7. Functional quadriplegia and status post above the knee amputation, secondary to gangrene. 8. 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 9. Anemia from epistaxis, status post two units of packed red blood cell transfusion. DISCHARGE MEDICATIONS: Acetaminophen 650 mg q.4 h. p.r.n., allopurinol 100 mg daily, Augmentin 250 mg q.8 h. for seven days, Epogen 10,000 units Wednesday, Wednesday, and Wednesday; [place] 5/325 mg 1 tab q.4 h., insulin 100 units subcutaneously q.6 h., lansoprazole 30 mg daily, Zofran 4 mg IV q.6 h. p.r.n., pravastatin 40 mg at bedtime, Ambien 5 mg at bedtime p.r.n., allopurinol 100 mg daily, Benadryl 25 mg q.6 h. p.r.n., Dulcolax 10 mg per suppository daily, folic acid 1 mg daily, Zinc 220 mg daily, hydralazine 25 mg q.6 h. p.r.n. for systolic blood pressure greater than 160 and the two medications that were stopped was aspirin and Plavix due to epistaxis. DISPOSITION: The patient will be discharged back to the [facility]. FOLLOWUP: She will follow up with ENT, Dr. Chapa in 10 days as an outpatient. I will see the patient in the rehabilitation in a few days. Pam Alcantar M.D. DR: OMEGA JOB#: [id number] CC: BHANU
--- NOTE | 2017-07-25 00:30 | Consultation ---
DATE OF CONSULTATION: 07/24/2017 INFECTIOUS DISEASE CONSULTATION CONSULTING PHYSICIAN: Morteza Castillo M.D. REQUESTING PHYSICIAN: Pam Alcantar M.D. REASON FOR CONSULTATION: MRSA and VRE colonization, recommendation for antibiotics. HISTORY OF PRESENT ILLNESS: The patient is an 82-year-old female with end-stage renal disease, on hemodialysis was admitted to [facility] on 07/17/2017 for vomiting blood. The patient was found to have epistaxis, which was the source of her bleeding. In the emergency room, her nose was packed and she was admitted to the hospital for further management and she was evaluated by ENT, who did nose packing and stent placement and the patient has been on Augmentin antibiotics treatment to cover for possible nares infection. Her bleeding became under controlled and resolved completely. Her nose stent was removed by ENT and she has no longer nasal bleeding or epistaxis. No fever or chills. No cough or shortness of breath. Her VRE screening in the rectum came back positive and MRSA screening in the nares came back positive. So, I was consulted by the primary provider for possible antibiotics treatment and the colonization. As of note, the patient is demented, cannot provide good history. History was mainly obtained from the medical record. REVIEW OF SYSTEMS: Unable to obtain at this point. The patient is demented, cannot provide any history. PAST MEDICAL HISTORY: Significant for diabetes mellitus with complication; dementia; end-stage renal disease, on hemodialysis; dysphagia, status post G-tube placement; peripheral vascular disease; dyslipidemia; bacteremia due to Streptococcus; CVA; DVT; and anemia. PAST SURGICAL HISTORY: The patient had G-tube placement. SOCIAL HISTORY: Unable to obtain. Lives in long term. No recent drugs, tobacco, or alcohol. FAMILY HISTORY: Unable to obtain. ALLERGIES: She has no known drug allergy. MEDICATIONS: She is on Augmentin 250 mg orally every eight hours, hydrocodone, pravastatin, allopurinol, and Epogen. LABORATORY DATA: Showed white count of 7.2, hemoglobin of 8.5, and platelet count of 166,000. BUN of 65 and creatinine of 5.4. MICROBIOLOGY: On 07/20/2017, blood culture x2 negative for 72 hours. VRE screening in the rectum, positive. MRSA screening in the nares, positive. IMAGING: Chest x-ray showed no acute cardiopulmonary abnormalities identified, old granulomatous disease, and status post right axillary surgery. PHYSICAL EXAMINATION: VITAL SIGNS: Temperature 98.2 degrees, pulse 83, respirations 21, blood pressure 138/69, and saturation 99% on room air. GENERAL: An elderly female, lying in bed, demented, comfortable, and not in acute distress. HEENT: Normocephalic and atraumatic. Pupils reactive to light. Pale sclerae. Moist oral mucosa. No exudate or thrush. No bleeding. NECK: Supple. No lymphadenopathy. CARDIOVASCULAR: Regular rate and rhythm. No murmur or gallop. LUNGS: Clear bilaterally. Diminished breathing sounds at the bases. Normal breathing efforts. ABDOMEN: Soft, nontender, and nondistended. Positive bowel sounds. No hepatosplenomegaly or ascites. G-tube site looks intact. EXTREMITIES: She has bilateral [id number] amputations. No significant edema or cyanosis. SKIN: She has sacral wound dry with no oozing or drainage and some skin break on the left inner thigh and left lower extremity. ASSESSMENT AND RECOMMENDATIONS: 1. Epistaxis, status post nasal packing and stent placement with removal. We will continue Augmentin for seven more days from the date her stent was removed, which is yesterday and follow up with ENT as an outpatient. Monitor clinically while she is in the hospital. 2. 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 Would avoid giving Bactroban at this point since she had nose bleeding. 3. Vancomycin-resistant Enterococcus colonization. Recommend keep the patient in contact isolation for both vancomycin-resistant Enterococcus and methicillin-resistant Staphylococcus aureus at this point. 4. Diabetes with complication. Recommend tight glycemic control to keep the glucose between 80 to 120. 5. End-stage renal disease, on hemodialysis. Continue hemodialysis as per Renal. 6. Sacral wound. Recommend offloading and local wound care. Thank you. Infectious Disease will continue to follow. Please feel free to call with any question. Morteza Castillo M.D. DR: JUANITO JOB#: [id number] CC:
== END 2017-07-24 16:00 | DRG 150 ==
LOC: EDBD 22:42 → EMR 23:35 → EDBEDREQ 07-17 01:43 → 4E 07-17 01:50 → 2E 07-18 04:11
PROC: 5A1D60Z (ICD-10-PCS; principal; 2017-07-17)
PROC: 2Y41X5Z Packing of Nasal Region using Packing Material (ICD-10-PCS; principal; 2017-07-17)
PROC: 30233N1 Transfusion of Nonautologous Red Blood Cells into Peripheral Vein, Percutaneous Approach (ICD-10-PCS; 2017-07-19)
DX: R04.0 Epistaxis (principal); N18.6 End stage renal disease; L89.153 Pressure ulcer of sacral region, stage 3; I12.0 Hypertensive chronic kidney disease with stage 5 chronic kidney disease or end stage renal disease; R53.2 Functional quadriplegia; D62 Acute posthemorrhagic anemia; F03.90 Unspecified dementia, unspecified severity, without behavioral disturbance, psychotic disturbance, mood disturbance, and anxiety; Z43.1 Encounter for attention to gastrostomy; R13.10 Dysphagia, unspecified; E11.9 Type 2 diabetes mellitus without complications; Z99.2 Dependence on renal dialysis; Z89.612 Acquired absence of left leg above knee; Z89.611 Acquired absence of right leg above knee; Z86.718 Personal history of other venous thrombosis and embolism; Z86.73 Personal history of transient ischemic attack (TIA), and cerebral infarction without residual deficits; Z22.322 Carrier or suspected carrier of Methicillin resistant Staphylococcus aureus; Z22.1 Carrier of other intestinal infectious diseases; Z16.22 Resistance to vancomycin related antibiotics; Z79.4 Long term (current) use of insulin
CPT/HCPCS: 36415; 71010; 80048; 82962; 83540; 83550; 84100; 85007; 85025; 85610; 86850; 86900; 86901; 86920; 87040; 87081; 99285; J1815; J2405

== ENCOUNTER 2019-05-10 08:52 | Inpatient (IN) | payer MEDICARE, MEDICAID ==
[~2019-05-10] VITALS: Ht 121.9 cm; Wt 77.1 kg
[~2019-05-10 08:52] MED LIST: ALLOPURINOL100 M1 GT; ALLOPURINOL100 M1 ORAL; AMBIEN5 MG GT; ASPIR 8181 MG ORAL; AUGMENTIN250 MG/51 GT; BENADRYL25 MG ORAL; D50w IV; DULCOLAX10 MG RC; FOLIC ACID1 MG ORAL; HYDRALAZINE HCL25 M1 ORAL; LANSOPRAZOLE30 MG GT; NORCO 5-325 TA1 EACH GT; NORCO 5-325 TA1 EACH ORAL; NOVOLOG100 UNITS1 SUBQ; PEPCID20 MG ORAL; PLAVIX75 MG ORAL; PRAVACHOL20 MG GT; PRAVACHOL20 MG ORAL; PROCRIT20000 UNI2 SUBQ; TYLENOL650 MG/20. GT; ZINC SULFATE220 M1 ORAL; ZOFRAN 4 MG4 MG/2 ML IVP
[2019-05-10] MEDS ORDERED: ZOSYN 3.373.375 GM/1 IVPB (09:09)
[2019-05-10 09:27] LABS: HEMATOCRIT 28.8 % (37.0-47.0); HEMOGLOBIN 8.2 G/DL (12.0-16.0); MEAN CORPUSCULAR VOLUME 96 FL (80-99); PLATELET COUNT 264 K/UL (150-450); RED CELL DISTRIBUTION WIDTH 22.8 % (11.6-14.8); WHITE BLOOD COUNT 13.1 K/UL (4.8-10.8)
[2019-05-10 09:33] VITALS: BP 141/69
[2019-05-10 09:39] LABS: ANION GAP 15 mmol/L (5-15); BLOOD UREA NITROGEN 48 mg/dL (7-18); CALCIUM 10.5 MG/DL (8.5-10.1); CARBON DIOXIDE 25 MMOL/L (21-32); CHLORIDE 100 MMOL/L (98-107); CREATININE 5.4 MG/DL (0.55-1.30); POTASSIUM 3.2 MMOL/L (3.5-5.1); SODIUM 140 MMOL/L (136-145)
[2019-05-10] MEDS ORDERED: MIRALAX17 G2 GT (09:43)
[2019-05-10] MEDS ORDERED: CULTURELLE1 TAB GT (09:43)
[2019-05-10] MEDS ORDERED: ZEGERID 40 MG1 EAC1 GT (09:43)
[2019-05-10] MEDS ORDERED: PHOS-NAK PACKE1 EAC1 GT (09:43)
[2019-05-10] MEDS ORDERED: ALBUTEROL2.5 MG/3 M INH (09:43)
[2019-05-10] MEDS ORDERED: NEPHROVITE1 TAB GT (09:43)
[2019-05-10] MEDS ORDERED: MULTIVITAMINS1 EAC2 GT (09:43)
[2019-05-10] MEDS ORDERED: MIDODRINE HCL10 MG GT (09:43)
--- NOTE | 2019-05-10 09:49 | Emergency Room Report ---
History of Present Illness General Chief Complaint: Fever Source: Medical Record, EMS Present Illness HPI Patient is brought in by paramedics from nursing facility with reports of fever Patient himself is a poor historian There was no reports of vomiting Patient has renal failure and is on dialysis Unknown regarding urine production Patient has bilateral [id number] amputations Unknown regarding cough No rash reported Allergies: Coded Allergies: No Known Allergies (Unverified , 07/16/17) Patient History Limited by: medical condition Past Medical History: see triage record Pertinent Family History: unable to obtain Reviewed Nursing Documentation: PMH: Agreed; PSxH: Agreed Nursing Documentation-PMH Hx Cardiac Problems: No - PNA, Anemia, Hyperlipidemia Hx Hypertension: Yes Hx Diabetes: Yes Hx Cancer: No Hx Dialysis: Yes - ESRD Review of Systems All Other Systems: limited - Other than the ones mentioned in the history of present illness all others are reviewed however they do stay limited due to the patient's mental status Physical Exam Vital Signs Date Time Temp Pulse Resp B/P (MAP) Pulse Ox O2 Delivery O2 Flow Rate FiO2 05/10/19 08:49 101.1 99 22 100/71 (81) 98 Room Air Sp02 EP Interpretation: reviewed, normal General Appearance: no apparent distress Head: normocephalic, atraumatic Eyes: bilateral eye PERRL, bilateral eye EOMI ENT: dry mucus membranes Neck: supple Respiratory: crackles - bilaterally Cardiovascular #1: regular rate, rhythm Gastrointestinal: non tender, soft Musculoskeletal: other - Bilateral below the knee amputations Neurologic: responsive - To physical stimuli Skin: no rash Lymphatic: no adenopathy Procedures Critical Care Time Critical Care Time 50 minutes for multiple re-evaluations critical presentation concern for deterioration and possible not include any procedural time Medical Decision Making Diagnostic Impression: Primary Impression: Anemia Additional Impressions: Fever ESRD (end stage renal disease) on dialysis ER Course Patient is a fairly complex patient with multiple differential to consideration including but not limited to cardiac cardiopulmonary and vascular emergencies Given the febrile presentation sepsis and other infectious pathology entertained Patient's white blood cell count is elevated evidence of anemia X-ray shows nonspecific findings Patient initiated on IV hydration And requires further inpatient care Labs Test 05/10/19 09:05 05/10/19 10:30 05/11/19 06:00 White Blood Count 13.1 K/UL (4.8-10.8) 9.7 K/UL (4.8-10.8) Red Blood Count 3.00 M/UL (4.20-5.40) 2.78 M/UL (4.20-5.40) Hemoglobin 8.2 G/DL (12.0-16.0) 7.7 G/DL (12.0-16.0) Hematocrit 28.8 % (37.0-47.0) 26.0 % (37.0-47.0) Mean Corpuscular Volume 96 FL (80-99) 94 FL (80-99) Mean Corpuscular Hemoglobin 27.4 PG (27.0-31.0) 27.8 PG (27.0-31.0) Mean Corpuscular Hemoglobin Concent 28.6 G/DL (32.0-36.0) 29.7 G/DL (32.0-36.0) Red Cell Distribution Width 22.8 % (11.6-14.8) 22.5 % (11.6-14.8) Platelet Count 264 K/UL (150-450) 261 K/UL (150-450) Mean Platelet Volume 6.2 FL (6.5-10.1) 5.9 FL (6.5-10.1) Neutrophils (%) (Auto) % (45.0-75.0) % (45.0-75.0) Lymphocytes (%) (Auto) % (20.0-45.0) % (20.0-45.0) Monocytes (%) (Auto) % (1.0-10.0) % (1.0-10.0) Eosinophils (%) (Auto) % (0.0-3.0) % (0.0-3.0) Basophils (%) (Auto) % (0.0-2.0) % (0.0-2.0) Differential Total Cells Counted 100 100 Neutrophils % (Manual) 87 % (45-75) 87 % (45-75) Lymphocytes % (Manual) 7 % (20-45) 8 % (20-45) Monocytes % (Manual) 3 % (1-10) 2 % (1-10) Eosinophils % (Manual) 3 % (0-3) 3 % (0-3) Basophils % (Manual) 0 % (0-2) 0 % (0-2) Band Neutrophils 0 % (0-8) 0 % (0-8) Platelet Estimate Adequate Adequate Platelet Morphology Normal Normal Polychromasia 1+ Anisocytosis 1+ 3+ Macrocytosis 1+ Sodium Level 140 MMOL/L (136-145) 140 MMOL/L (136-145) Potassium Level 3.2 MMOL/L (3.5-5.1) 3.9 MMOL/L (3.5-5.1) Chloride Level 100 MMOL/L (98-107) 102 MMOL/L (98-107) Carbon Dioxide Level 25 MMOL/L (21-32) 25 MMOL/L (21-32) Anion Gap 15 mmol/L (5-15) 13 mmol/L (5-15) Blood Urea Nitrogen 48 mg/dL (7-18) 52 mg/dL (7-18) Creatinine 5.4 MG/DL (0.55-1.30) 6.4 MG/DL (0.55-1.30) Estimat Glomerular Filtration Rate mL/min (>60) mL/min (>60) Glucose Level 204 MG/DL (74-106) 103 MG/DL (74-106) Lactic Acid Level 3.50 mmol/L (0.4-2.0) 3.50 mmol/L (0.66-2.22) Calcium Level 10.5 MG/DL (8.5-10.1) 10.1 MG/DL (8.5-10.1) Total Bilirubin 0.4 MG/DL (0.2-1.0) Aspartate Amino Transf (AST/SGOT) 35 U/L (15-37) Alanine Aminotransferase (ALT/SGPT) 40 U/L (12-78) Alkaline Phosphatase 136 U/L (46-116) Total Creatine Kinase 24 U/L (26-308) Creatine Kinase MB 0.5 NG/ML (0.0-3.6) Creatine Kinase MB Relative Index 2.0 Troponin I 0.034 ng/mL (0.000-0.056) 0.021 ng/mL (0.000-0.056) Pro-B-Type Natriuretic Peptide 3668 pg/mL (0-125) Total Protein 7.3 G/DL (6.4-8.2) Albumin 2.3 G/DL (3.4-5.0) 2.1 G/DL (3.4-5.0) Globulin 5.0 g/dL Albumin/Globulin Ratio 0.5 (1.0-2.7) Lipase > 2000 U/L (73-393) 739 U/L (73-393) Hypochromasia 3+ Phosphorus Level 5.8 MG/DL (2.5-4.9) Iron Level 43 ug/dL (50-175) Total Iron Binding Capacity 106 ug/dL (250-450) Percent Iron Saturation 41 % (15-50) Unsaturated Iron Binding 63 ug/dL (112-346) Ferritin 462 NG/ML (8-388) Vitamin B12 Level 1132 PG/ML (193-986) Folate 63.6 NG/ML (8.6-58.9) Random Vancomycin Level 31.2 ug/mL Rhythm Strip Diag. Results EP Interpretation: yes Rate: 70 Rhythm: NSR, no PVC's, no ectopy Chest X-Ray Diagnostic Results Chest X-Ray Diagnostic Results : Chest X-Ray Ordered: Yes # of Views/Limited/Complete: 1 View Indication: Chest Pain EP Interpretation: Yes Interpretation: no consolidation, no effusion, no pneumothorax Impression: Other - Cardiomegaly Electronically Signed by: Jayy Hogan DO Last Vital Signs Date Time Temp Pulse Resp B/P (MAP) Pulse Ox O2 Delivery O2 Flow Rate FiO2 05/10/19 09:36 99 29 Room Air 05/10/19 09:33 100.5 141/69 90 Status: improved Disposition: ADMITTED INPATIENT Condition: Serious Referrals: Castro De La Cruz MD (PCP) Jayy Hogan DO May 10, 2019 09:49
[2019-05-10] MEDS ORDERED: cefTRIAXone 1 GM in NS 55 ML IVPB ONE (10:00)
[2019-05-10] MEDS ORDERED: Acetaminophen 650mg/20.3ml GT ONE (10:00)
[2019-05-10 10:02] LABS: ALANINE AMINOTRANSFERASE 40 U/L (12-78); ALBUMIN 2.3 G/DL (3.4-5.0); ALBUMIN/GLOBULIN RATIO 0.5 (1.0-2.7); ALKALINE PHOSPHATASE 136 U/L (46-116); ASPARTATE AMINO TRANSFERASE 35 U/L (15-37); BILIRUBIN,TOTAL 0.4 MG/DL (0.2-1.0); CKMB 0.5 NG/ML (0.0-3.6); CREATINE KINASE 24 U/L (26-308)
--- NOTE | 2019-05-10 10:04 | NUR ---
ED Nurse Note: PT GIBSON RA 70 FROM [facility] FOR SOB AND PNA PT DX'D YESTERDAY WITH PNA PER EMS. PT IS A BI-LAT BELOW THE KNEE AMPUTEE HAS A SACRAL WOUND AND WHAT APPEARS TO BE A RASH LOWER ABD FOLD. PT HAS A G-TUBE AND IS NON-VERBAL. PT ALSO HAS A 22G SL THAT WAS STARTED AT [facility]. RA 70 STATED PT HAS A PICC-LINE UNABLE TO LOCATE PICC-LINE . PT PLACED ON MONITROR VSS BLOOD SENT TO LAB AND BLOOD CULTURES AND MRSA VRE /CRE SWABS.
--- NOTE | 2019-05-10 10:10 | NUR ---
ED Nurse Note: UNABLE TO OBTAIN URINE EVEN WITH STRAIT CATH ERMD AWARE STATES THATS OK PT HAD DIALYSIS YESTERDAY PER EMS. HER DAYS ARE T-TH-SAT. HER SHUNT ON LEFT UPPER ARM.
--- NOTE | 2019-05-10 10:14 | NUR ---
ED Nurse Note: LACTIC ELEVATED ERMD INFORMED WILL REDRAW REFLEX.
--- NOTE | 2019-05-10 10:15 | NUR ---
ED Nurse Note: PT'S ULCER PICS UPLOADED.
--- NOTE | 2019-05-10 10:24 | NUR ---
ED Nurse Note: REFLEX SENT TO LAB
[2019-05-10 10:56] VITALS: BP 102/47
--- NOTE | 2019-05-10 11:24 | Diagnostic Imaging Report ---
Indication: Shortness of breath Technique: One view of the chest Comparison: 07/22/2017 Findings: There are placement of right subclavian/innominate venous stent. The heart is borderline enlarged. There is mild central bronchial wall thickening but no travis congestion. Calcified granuloma is seen in the left hilum. Impression: Cardiomegaly. No definite acute process Evidence old granulomatous disease
--- NOTE | 2019-05-10 11:50 | NUR ---
NURSE NOTES: RN received pt in stable condition from Emma in ED. No acute distress or SOB. Vitals stable, afebrile. Pt alert, non-verbal, breathing is even and unlabored. IV sites are patent, assymptomatic and flush. Gtube site noted to have soiled bandage and skin breakdown underneath bandage. RN removed soiled bandage, cleaned area with normal saline and applied new gauze to area without tape. Gtube flushes without resistance. Pt noted to have sacral wound, possibly stage 2; will ask for wound care consult and inform MD. Dr. Lui entered orders, will make pt comfortable and continue plan of care.
[2019-05-10 12:00] VITALS: BP 152/47
[2019-05-10] MEDS ORDERED: Albuterol/Ipratropium 3ml neb HHN PRN (12:00)
[2019-05-10] MEDS ORDERED: HydrALAZINE 25mg tab ORAL PRN (12:00)
[2019-05-10] MEDS ORDERED: Amikacin Rx to dose MISC PRN (12:00)
[2019-05-10] MEDS ORDERED: Miralax 17gm pkt ORAL PRN (12:00)
--- NOTE | 2019-05-10 12:00 | NUR ---
NURSE NOTES: Pt sacral wound surrounds the entire area of the buttocks and right trochanter; stage 2-3. There is skin breakdown, both pressure and moisture contributing to the wound. Picture taken and uploaded into chart. Cleaned with normal saline and covered with Optifoam. Area is too large for one Optifoam and requires consult for care. RN will request order and f/u with would care nurse.
[2019-05-10] MEDS: D5 1/2NS 1,000 ML IV SCH (13:10)
[2019-05-10] MEDS ORDERED: Vancomycin 1.5gm Premix IVPB ONE (14:00)
--- NOTE | 2019-05-10 14:09 | NUR ---
NURSE NOTES: RN sent Dr. Lui message regarding pt's potassium level 3.2; awaiting call back.
[2019-05-10] MEDS ORDERED: Amikacin 500 MG in NS 110 ML IV ONE (15:00)
--- NOTE | 2019-05-10 15:00 | Consultation ---
History of Present Illness General Chief Complaint: Fever Present Illness Allergies: Coded Allergies: No Known Allergies (Unverified , 07/16/17) Medication History Scheduled Allopurinol* (Allopurinol*), 100 MG ORAL DAILY, (Reported) Allopurinol* (Allopurinol*), 100 MG GT DAILY Amoxicillin/Potassium Clav 250-62.5 Mg/5 Ml (Augmentin 250-62.5 Mg/5 Ml), 250 MG GT EVERY 8 HOURS Epoetin Alli (Procrit), 10,000 UNITS SUBQ WED-WED-WED Famotidine (Pepcid), 20 MG ORAL BEDTIME, (Reported) Folic Acid* (Folic Acid*), 1 MG ORAL DAILY, (Reported) Insulin Aspart (Novolog Flexpen), 0 UNITS SUBQ EVERY 6 HOURS Lansoprazole* (Lansoprazole*), 30 MG GT DAILY Midodrine* (Proamatine*), 10 MG GT DAILY, (Reported) Multivitamins* (Multivitamins*), 1 TAB GT DAILY, (Reported) Omeprazole/Sodium Bicarbonate (Zegerid 40 Mg Packet), 40 PACKET GT BID, ( Reported) Swlwxecjanwl-Ilhv-Yykxfocc,Iso (Zosyn 3.375 Gm Pre Mix-Bag), 3.375 GM IVPB EVERY 8 HOURS, (Reported) Eibhhdabcdby-Dsus-Sbzsmjfi,Iso (Zosyn 3.375 Gm Pre Mix-Bag), 2.25 GM IVPB EVERY 8 HOURS, (Reported) Polyethylene Glycol 3350* (Miralax*), 17 GM GT DAILY, (Reported) Pravastatin Sod* (Pravachol*), 40 MG ORAL BEDTIME, (Reported) Pravastatin Sod* (Pravachol*), 40 MG GT BEDTIME Vitamin B Cmplx/Vit C/Folic AC (Nephro-Xavier Tablet), 1 TAB GT DAILY, (Reported) Zinc Sulfate (Zinc Sulfate*), 220 MG ORAL DAILY, (Reported) Scheduled PRN Acetaminophen (Acetaminophen), 650 MG GT Q4H PRN Albuterol Sulfate* (Albuterol Sulfate Hhn*), 3 ML INH Q4H PRN for Shortness of Breath, (Reported) Diphenhydramine Hcl* (Benadryl*), 25 MG ORAL Q6H PRN for Itching, (Reported) Hydralazine Hcl* (Hydralazine Hcl*), 25 MG ORAL PRN PRN for For High Blood Pressure, (Reported) Hydrocodone Bit/Acetaminophen 5-325* (R[place]ford 5-325*), 1 TAB ORAL Q4H PRN for For Pain, (Reported) Hydrocodone Bit/Acetaminophen 5-325* ([place]ford 5-325*), 1 TAB GT Q4H PRN Ondansetron* (Zofran*), 4 MG IVP Q6H PRN Zolpidem Tartrate* (Ambien*), 5 MG GT HSPRN PRN [D50w], 0 ML IV STAT PRN Miscellaneous Medications Bisacodyl (Dulcolax), 10 MG RC, (Reported) Lactobacillus Rhamnosus GG (Culturelle), 2 TAB GT, (Reported) Naph,Mb-Db/K Ph,Mbdb (Phos-Nak Packet), 1 EACH GT, (Reported) Patient History Healthcare decision maker Resuscitation status Full Code Advanced Directive on File Physical Exam Last 24 Hour Vital Signs Date Time Temp Pulse Resp B/P (MAP) Pulse Ox O2 Delivery O2 Flow Rate FiO2 05/10/19 12:00 98.4 97 18 152/47 (82) 98 05/10/19 10:59 99.9 98 29 141/69 90 Room Air 05/10/19 10:56 99.8 98 23 102/47 96 Room Air 05/10/19 10:26 99.9 05/10/19 09:36 99 29 Room Air 05/10/19 09:33 100.5 99 29 141/69 90 Room Air 05/10/19 08:49 101.1 99 22 100/71 (81) 98 Room Air Laboratory Tests Test 05/10/19 09:05 05/10/19 10:30 White Blood Count 13.1 K/UL (4.8-10.8) H Red Blood Count 3.00 M/UL (4.20-5.40) L Hemoglobin 8.2 G/DL (12.0-16.0) L Hematocrit 28.8 % (37.0-47.0) L Mean Corpuscular Volume 96 FL (80-99) Mean Corpuscular Hemoglobin 27.4 PG (27.0-31.0) Mean Corpuscular Hemoglobin Concent 28.6 G/DL (32.0-36.0) L Red Cell Distribution Width 22.8 % (11.6-14.8) H Platelet Count 264 K/UL (150-450) Mean Platelet Volume 6.2 FL (6.5-10.1) L Neutrophils (%) (Auto) % (45.0-75.0) Lymphocytes (%) (Auto) % (20.0-45.0) Monocytes (%) (Auto) % (1.0-10.0) Eosinophils (%) (Auto) % (0.0-3.0) Basophils (%) (Auto) % (0.0-2.0) Differential Total Cells Counted 100 Neutrophils % (Manual) 87 % (45-75) H Lymphocytes % (Manual) 7 % (20-45) L Monocytes % (Manual) 3 % (1-10) Eosinophils % (Manual) 3 % (0-3) Basophils % (Manual) 0 % (0-2) Band Neutrophils 0 % (0-8) Platelet Estimate Adequate Platelet Morphology Normal Polychromasia 1+ Anisocytosis 1+ Macrocytosis 1+ Sodium Level 140 MMOL/L (136-145) Potassium Level 3.2 MMOL/L (3.5-5.1) L Chloride Level 100 MMOL/L (98-107) Carbon Dioxide Level 25 MMOL/L (21-32) Anion Gap 15 mmol/L (5-15) Blood Urea Nitrogen 48 mg/dL (7-18) H Creatinine 5.4 MG/DL (0.55-1.30) H Estimat Glomerular Filtration Rate mL/min (>60) Glucose Level 204 MG/DL (74-106) H Lactic Acid Level 3.50 mmol/L (0.4-2.0) H 3.50 mmol/L (0.66-2.22) H Calcium Level 10.5 MG/DL (8.5-10.1) H Total Bilirubin 0.4 MG/DL (0.2-1.0) Aspartate Amino Transf (AST/SGOT) 35 U/L (15-37) Alanine Aminotransferase (ALT/SGPT) 40 U/L (12-78) Alkaline Phosphatase 136 U/L (46-116) H Total Creatine Kinase 24 U/L (26-308) L Creatine Kinase MB 0.5 NG/ML (0.0-3.6) Creatine Kinase MB Relative Index 2.0 Troponin I 0.034 ng/mL (0.000-0.056) Pro-B-Type Natriuretic Peptide 3668 pg/mL (0-125) H Total Protein 7.3 G/DL (6.4-8.2) Albumin 2.3 G/DL (3.4-5.0) L Globulin 5.0 g/dL Albumin/Globulin Ratio 0.5 (1.0-2.7) L Lipase > 2000 U/L (73-393) H Microbiology Date/Time Source Procedure Growth Status 05/10/19 09:48 Rectum Received Height (Feet): 4 Height (Inches): 0.00 Weight (Pounds): 170 Medications Current Medications Medications (Trade) Dose Ordered Sig/Selene Route PRN Reason Start Time Stop Time Status Last Admin Dose Admin Acetaminophen (Tylenol) 650 mg Q4H PRN ORAL Fever (temp>100.5F) 05/10/19 12:00 06/09/19 11:59 Albuterol/ Ipratropium (Albuterol/ Ipratropium) 3 ml Q4H PRN HHN Shortness of Breath 05/10/19 12:00 05/15/19 11:59 Allopurinol (Zyloprim) 100 mg DAILY GT 05/11/19 09:00 06/10/19 08:59 Amikacin Protocol (Amikacin pharmacy to dose) 1 ea DAILY PRN MISC Per rx protocol 05/10/19 12:00 06/09/19 11:59 Amikacin Sulfate 500 mg/Sodium Chloride 112 ml @ 224 mls/hr ONCE ONCE IV 05/10/19 15:00 05/10/19 15:29 Dextrose (Dextrose 50%) 25 ml Q30M PRN IV Hypoglycemia 05/10/19 12:00 06/09/19 11:59 Dextrose (Dextrose 50%) 50 ml Q30M PRN IV Hypoglycemia 05/10/19 12:00 06/09/19 11:59 Dextrose/Sodium Chloride 1,000 ml @ 50 mls/hr Q20H IV 05/10/19 12:30 06/09/19 12:29 05/10/19 13:10 Folic Acid (Folate) 1 mg DAILY ORAL 05/11/19 09:00 06/10/19 08:59 Heparin Sodium (Porcine) (Heparin 5000 units/ml) 5,000 units EVERY 12 HOURS SUBQ 05/10/19 21:00 06/09/19 20:59 Hydralazine HCl (Apresoline) 25 mg Q6H PRN ORAL For High Blood Pressure 05/10/19 12:00 06/09/19 11:59 Ondansetron HCl (Zofran) 4 mg Q6H PRN IVP Nausea & Vomiting 05/10/19 12:00 06/09/19 11:59 Polyethylene Glycol (Miralax) 17 gm DAILYPRN PRN ORAL Constipation 05/10/19 12:00 06/09/19 11:59 Potassium Chloride (K-Dur) 20 meq ONCE ORAL 05/10/19 14:30 05/10/19 15:30 Temazepam (Restoril) 15 mg HSPRN PRN ORAL Insomnia 05/10/19 12:00 05/17/19 11:59 Vancomycin HCl (Vanco rx to dose) 1 ea DAILY PRN MISC Per rx protocol 05/10/19 12:00 06/09/19 11:59 Vancomycin HCl/ Dextrose 275 ml @ 137.5 mls/ hr ONCE ONCE IVPB 05/10/19 14:00 05/10/19 15:59 Assessment/Plan Problem List: (1) HTN (hypertension) ICD Codes: I10 - Essential (primary) hypertension SNOMED: 36459291 (2) DM (diabetes mellitus) ICD Codes: E11.9 - Type 2 diabetes mellitus without complications SNOMED: 31719165 (3) ESRD (end stage renal disease) on dialysis ICD Codes: N18.6 - End stage renal disease; Z99.2 - Dependence on renal dialysis SNOMED: 596239951 Rosemary Lui MD May 10, 2019 14:59
--- NOTE | 2019-05-10 15:14 | NUR ---
NURSE NOTES: RN late administering medications due to pharmacy delay delivering vanco to floor.
--- NOTE | 2019-05-10 15:23 | NUR ---
NURSE NOTES: RN left message for Dr. Lopez; pt receives dialysis on Wednesday, , Wednesday at [facility] - [phone], PRERNA arauz. [employer] Technician Hakan Erickson - [phone].
[2019-05-10 16:00] VITALS: BP 111/52
--- NOTE | 2019-05-10 16:00 | NUR ---
NURSE NOTES: RN cleaned pt wound with normal saline, Optifoam. Wound care consult ordered.
--- NOTE | 2019-05-10 17:11 | NUR ---
NURSE NOTES: Pt received Novasource for G-Tube feeding at [facility]. RN to request nutritional consult for pt.
--- NOTE | 2019-05-10 19:34 | NUR ---
HAND-OFF: Report given to CATA Thompson.
--- NOTE | 2019-05-10 19:40 | NUR ---
NURSE NOTES: Received pt from [facility]. pt is non-verbal. Pt is on room air with no SOB or acute respiratory distress noted at this time. Pt has intact iv access RFA 20G SL All needs attended to , bed is locked and is in the lowest position, call light is within reach. Will continue to monitor and follow plan of care.
[2019-05-10 20:00] VITALS: BP 104/86
[2019-05-10] MEDS: Heparin 5000 units/ml inj SUBQ SCH (21:00)
[2019-05-11] VITALS: BP 101/90
[2019-05-11 04:00] VITALS: BP 138/63
[2019-05-11 06:25] LABS: HEMOGLOBIN 7.7 G/DL (12.0-16.0); MEAN CORPUSCULAR VOLUME 94 FL (80-99); PLATELET COUNT 261 K/UL (150-450); RED BLOOD COUNT 2.78 M/UL (4.20-5.40); RED CELL DISTRIBUTION WIDTH 22.5 % (11.6-14.8); WHITE BLOOD COUNT 9.7 K/UL (4.8-10.8)
[2019-05-11 06:42] LABS: ALBUMIN 2.1 G/DL (3.4-5.0); ANION GAP 13 mmol/L (5-15); BLOOD UREA NITROGEN 52 mg/dL (7-18); CALCIUM 10.1 MG/DL (8.5-10.1); CARBON DIOXIDE 25 MMOL/L (21-32); CHLORIDE 102 MMOL/L (98-107); CREATININE 6.4 MG/DL (0.55-1.30); PHOSPHORUS 5.8 MG/DL (2.5-4.9); POTASSIUM 3.9 MMOL/L (3.5-5.1); SODIUM 140 MMOL/L (136-145)
--- NOTE | 2019-05-11 07:20 | NUR ---
NURSE NOTES: RN received pt in stable condition, alert in bed. No acute distress or SOB. Bed in low, locked position, call light within reach. RN to contact Dr. Lopez regarding dialysis order for today. Hgb 7.7, Hct 6.4; will inform MD. Will continue plan of care.
[2019-05-11 08:00] VITALS: BP 160/84
[2019-05-11] MEDS: Heparin 5000 units/ml inj SUBQ SCH ×2 (08:10→21:17)
[2019-05-11] MEDS: D5 1/2NS 1,000 ML IV SCH (08:14)
[2019-05-11] MEDS ORDERED: Allopurinol 100mg Tab GT SCH (09:00)
[2019-05-11] MEDS ORDERED: Midodrine 10mg tab GT SCH (09:00)
--- NOTE | 2019-05-11 09:01 | NUR ---
NURSE NOTES: RN contacted [facility] re pt dialysis scheduled for today. Awaiting call back.
--- NOTE | 2019-05-11 09:12 | NUR ---
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 ESRD VS: BP 141/69, P 99, T 101.1, RR 29, SpO2 98 WBC 13.1, RBC 3.00, H&H 8.2/28.8, K 3.2, BUN 48, CR 5.4 IS:NS 500ml IV CEFTRIAXONE 55ml IVPB TYLENOL 650mg GT ADMITTED TO MED/SURG DCP: RETURN TO [facility]
--- NOTE | 2019-05-11 10:00 | NUR ---
NURSE NOTES: RN provided wound care to pt with wound care nurse. Cleaned with NS, applied Therahony, covered with Optifoam.
--- NOTE | 2019-05-11 11:03 | NUR ---
NURSE NOTES: Dr. Lui ordered 1 unit PRBC; ok for dialysis nurse to give.
[2019-05-11 12:00] VITALS: BP 142/69
--- NOTE | 2019-05-11 13:05 | Pulmonology Progress Note ---
Assessment/Plan Problems: (1) Sepsis (2) HTN (hypertension) (3) DM (diabetes mellitus) (4) ESRD (end stage renal disease) on dialysis Assessment/Plan check cultures iv abx renal evaluation symptomatic treatment gtube feeding dvt prophylaxis. Subjective Allergies: Coded Allergies: No Known Allergies (Unverified , 07/16/17) Objective Last 24 Hour Vital Signs Date Time Temp Pulse Resp B/P (MAP) Pulse Ox O2 Delivery O2 Flow Rate FiO2 05/11/19 09:00 Room Air 05/11/19 08:26 73 20 98 Room Air 21 05/11/19 08:00 97.1 96 18 160/84 (109) 94 05/11/19 04:00 97.7 75 18 138/63 (88) 99 05/11/19 00:00 97.3 79 18 101/90 (94) 98 05/10/19 21:00 Room Air 05/10/19 20:07 94 18 97 Room Air 21 05/10/19 20:00 98.1 87 16 104/86 (92) 99 05/10/19 16:00 98.1 92 18 111/52 (71) 98 Intake and Output 05/10/19 05/11/19 18:59 06:59 Intake Total 550 ml Balance 550 ml Intake IV Total 550 ml # Voids 2 # Bowel Movements 1 Microbiology Date/Time Source Procedure Growth Status 05/10/19 09:48 Rectum Received Laboratory Tests 05/11/19 06:00: White Blood Count 9.7, Red Blood Count 2.78L, Hemoglobin 7.7L, Hematocrit 26.0L , Mean Corpuscular Volume 94, Mean Corpuscular Hemoglobin 27.8, Mean Corpuscular Hemoglobin Concent 29.7L, Red Cell Distribution Width 22.5H, Platelet Count 261, Mean Platelet Volume 5.9L, Neutrophils (%) (Auto) , Lymphocytes (%) (Auto) , Monocytes (%) (Auto) , Eosinophils (%) (Auto) , Basophils (%) (Auto) , Differential Total Cells Counted 100, Neutrophils % ( Manual) 87H, Lymphocytes % (Manual) 8L, Monocytes % (Manual) 2, Eosinophils % ( Manual) 3, Basophils % (Manual) 0, Band Neutrophils 0, Platelet Estimate Adequate, Platelet Morphology Normal, Hypochromasia 3+, Anisocytosis 3+, Sodium Level 140, Potassium Level 3.9, Chloride Level 102, Carbon Dioxide Level 25, Anion Gap 13, Blood Urea Nitrogen 52H, Creatinine 6.4H, Estimat Glomerular Filtration Rate , Glucose Level 103#, Calcium Level 10.1, Phosphorus Level 5.8H , Troponin I 0.021, Albumin 2.1L, Random Vancomycin Level 31.2 Current Medications Medications (Trade) Dose Ordered Sig/Selene Route PRN Reason Start Time Stop Time Status Last Admin Dose Admin Acetaminophen (Tylenol) 650 mg Q4H PRN ORAL Fever (temp>100.5F) 05/10/19 12:00 06/09/19 11:59 Albuterol/ Ipratropium (Albuterol/ Ipratropium) 3 ml Q4H PRN HHN Shortness of Breath 05/10/19 12:00 05/15/19 11:59 Allopurinol (Zyloprim) 100 mg DAILY GT 05/11/19 09:00 06/10/19 08:59 05/11/19 08:09 Amikacin Protocol (Amikacin pharmacy to dose) 1 ea DAILY PRN MISC Per rx protocol 05/10/19 12:00 06/09/19 11:59 Dextrose (Dextrose 50%) 25 ml Q30M PRN IV Hypoglycemia 05/10/19 12:00 06/09/19 11:59 Dextrose (Dextrose 50%) 50 ml Q30M PRN IV Hypoglycemia 05/10/19 12:00 06/09/19 11:59 Dextrose/Sodium Chloride 1,000 ml @ 50 mls/hr Q20H IV 05/10/19 12:30 06/09/19 12:29 05/11/19 08:14 Folic Acid (Folate) 1 mg DAILY ORAL 05/11/19 09:00 06/10/19 08:59 05/11/19 08:09 Heparin Sodium (Porcine) (Heparin 5000 units/ml) 5,000 units EVERY 12 HOURS SUBQ 05/10/19 21:00 06/09/19 20:59 05/11/19 08:10 Hydralazine HCl (Apresoline) 25 mg Q6H PRN ORAL For High Blood Pressure 05/10/19 12:00 06/09/19 11:59 Ondansetron HCl (Zofran) 4 mg Q6H PRN IVP Nausea & Vomiting 05/10/19 12:00 06/09/19 11:59 Polyethylene Glycol (Miralax) 17 gm DAILYPRN PRN ORAL Constipation 05/10/19 12:00 06/09/19 11:59 Temazepam (Restoril) 15 mg HSPRN PRN ORAL Insomnia 05/10/19 12:00 05/17/19 11:59 Vancomycin HCl (Vanco rx to dose) 1 ea DAILY PRN MISC Per rx protocol 05/10/19 12:00 06/09/19 11:59 Rosemary Lui MD May 11, 2019 13:05
--- NOTE | 2019-05-11 13:20 | NUR ---
RD ASSESSMENT & RECOMMENDATIONS SEE CARE ACTIVITY FOR COMPLETE ASSESSMENT DAILY ESTIMATED NEEDS: Needs based on ESRD/HD, wound/ 56kg adj for BL AKA 30-35 kcals/kg 4371-9848 total kcals 1.25-1.8 g protein/kg 70-101 g total protein Fluid per MD, on HD NUTRITION DIAGNOSIS: (1) Increased kcal/pro intake needs R/T renal dysfunction, wound healing as evidenced by ESRD dx, on HD. w/ sacral wound, pending eval. (2) Altered nutrition related lab values R/T clinical status as evidenced by elev Lipase >2000. ENTERAL NUTRITION RECOMMENDATIONS: Nepro @ 40ml/hr x 24 hrs to provide 960ml, 1728kcal, 78g pro, 698ml free water * As medically able, rec to start NEPRO @20ml/hr for 6 hrs * Increase 10ml/hr q4-6 hrs to goal * HOB over 30 degrees/ water flush per MD ----- ADDITIONAL RECOMMENDATIONS: * Calibrated dry wt post HD * Brian 1pkt BID for wound healing via GT w/ TF order * Add NEPHROVITE x1 daily * F/up w/ WC eval
--- NOTE | 2019-05-11 13:37 | GI Initial Consult Note ---
History of Present Illness General Date patient seen: May 11, 2019 Time patient seen: 13:27 Reason for Hospitalization: Fever Referring physician: Rosemary Olivares Reason for Consultation: Pancreatitis Present Illness HPI Patient is brought in by paramedics from nursing facility with reports of fever Patient himself is a poor historian There was no reports of vomiting Patient has renal failure and is on dialysis Unknown regarding urine production Patient has bilateral kaasx-hdb-hdlm amputations Unknown regarding cough No rash reported GI consulted for pancreatitis.ROS limited, patient is a poor historian. Patient seen, awake alert oriented no apparent distress with no active signs and symptoms of nausea vomiting. Patient is G-tube dependent. Patient presents today with a low hemoglobin 7.7, pending blood transfusion. Potassium is 3.2, creatinine was 5.4, alkaline phosphatase 136 and lipase levels over 2000. Unknown history of endoscopic colonoscopy. Home Meds Active Scripts Hydrocodone Bit/Acetaminophen 5-325* (NORCO 5-325*) 1 Each Tablet, 1 TAB GT Q4H PRN, #60 TAB Prov:Pam Alcantar MD 07/24/17 Insulin Aspart (Novolog Flexpen) 100 Unit/1 Ml Insuln.pen, 0 UNITS SUBQ EVERY 6 HOURS, #1 EA Prov:Pam Alcantar MD 07/24/17 Zolpidem Tartrate* (AMBIEN*) 5 Mg Tablet, 5 MG GT HSPRN PRN, #30 TAB Prov:Pam Alcantar MD 07/24/17 Ondansetron* (ZOFRAN*) 4 Mg/2 Ml Vial, 4 MG IVP Q6H PRN, #1 VIAL Prov:Pam Alcantar MD 07/24/17 [D50w] 50 ML SOLN No Conflict Check, 0 ML IV STAT PRN, #1 Prov:Pam Alcantar MD 07/24/17 Acetaminophen (Acetaminophen) 650 Mg/20.3 Ml Solution, 650 MG GT Q4H PRN, #1 ML Prov:Pam Alcantar MD 07/24/17 Allopurinol* (ALLOPURINOL*) 100 Mg Tablet, 100 MG GT DAILY, #30 TAB Prov:Pam Alcantar MD 07/24/17 Pravastatin Sod* (PRAVACHOL*) 20 Mg Tablet, 40 MG GT BEDTIME, #30 TAB Prov:Pam Alcantar MD 07/24/17 Lansoprazole* (LANSOPRAZOLE*) 30 Mg Capsule.dr, 30 MG GT DAILY, #30 CAP Prov:Pam Alcantar MD 07/24/17 Epoetin Alli (PROCRIT) 20,000 Unit/1 Ml Vial, 55869 UNITS SUBQ MON-WED-FRI, #1 VIAL Prov:Pam Alcantar MD 07/24/17 Amoxicillin/Potassium Clav 250-62.5 Mg/5 Ml (AUGMENTIN 250-62.5 MG/5 ML) 250 Mg/ 5 Ml Susp.recon, 250 MG GT EVERY 8 HOURS for 7 Days, ML Prov:Pam Alcantar MD 07/24/17 Reported Medications Midodrine* (PROAMATINE*) 10 Mg Tablet, 10 MG GT DAILY, TAB 05/10/19 Multivitamins* (MULTIVITAMINS*) 1 Each Tablet, 1 TAB GT DAILY, TAB 0 Refills 05/10/19 Vitamin B Cmplx/Vit C/Folic AC (Nephro-Xavier Tablet) 0.8 Mg Tablet, 1 TAB GT DAILY, #30 TAB 0 Refills 05/10/19 Lactobacillus Rhamnosus GG (Culturelle) 1 Each Capsule, 2 TAB GT, TAB 05/10/19 Polyethylene Glycol 3350* (MIRALAX*) 17 Gm Powd.pack, 17 GM GT DAILY, PACKET 05/10/19 Naph,Mb-Db/K Ph,Mbdb (PHOS-NAK PACKET) 1 Each Powd.pack, 1 EACH GT, PACK 05/10/19 Omeprazole/Sodium Bicarbonate (ZEGERID 40 MG PACKET) 1 Each Packet, 40 PACKET GT BID for 30 Days, MG 0 Refills 05/10/19 Albuterol Sulfate* (ALBUTEROL SULFATE HHN*) 2.5 Mg/3 Ml Vial.neb, 3 ML INH Q4H PRN for Shortness of Breath, EA 05/10/19 Lnqajihehwew-Lwqg-Thfbgyxf,Iso (ZOSYN 3.375 GM PRE MIX-BAG) 3.375 Gm/50 Ml Froz.piggy, 2.25 GM IVPB EVERY 8 HOURS for 7 Days, BAG 05/10/19 Hkihleidwvnx-Qolv-Etnldxez,Iso (ZOSYN 3.375 GM PRE MIX-BAG) 3.375 Gm/50 Ml Froz.piggy, 3.375 GM IVPB EVERY 8 HOURS, BAG 05/10/19 Hydrocodone Bit/Acetaminophen 5-325* (NORCO 5-325*) 1 Each Tablet, 1 TAB ORAL Q4H PRN for For Pain, TAB 0 Refills 07/17/17 Bisacodyl (DULCOLAX) 10 Mg Supp.rect, 10 MG RC, SUPP 07/17/17 Hydralazine Hcl* (HYDRALAZINE HCL*) 25 Mg Tablet, 25 MG ORAL PRN PRN for For High Blood Pressure, TAB 0 Refills 07/17/17 Diphenhydramine Hcl* (BENADRYL*) 25 Mg Capsule, 25 MG ORAL Q6H PRN for Itching, CAP 07/17/17 Zinc Sulfate (ZINC SULFATE*) 220 Mg Capsule, 220 MG ORAL DAILY, CAP 0 Refills 07/17/17 Pravastatin Sod* (PRAVACHOL*) 20 Mg Tablet, 40 MG ORAL BEDTIME, TAB 07/17/17 Folic Acid* (FOLIC ACID*) 1 Mg Tablet, 1 MG ORAL DAILY, TAB 07/17/17 Allopurinol* (ALLOPURINOL*) 100 Mg Tablet, 100 MG ORAL DAILY, TAB 07/17/17 Famotidine (PEPCID) 20 Mg Tablet, 20 MG ORAL BEDTIME, #7 TAB 0 Refills 07/17/17 Med list reviewed/reconciled: Yes Allergies: Coded Allergies: No Known Allergies (Unverified , 07/16/17) Patient History Limited by: medical condition History Provided By: Medical Record PMH Narrative Limited by: medical condition Past Medical History: see triage record Pertinent Family History: unable to obtain Reviewed Nursing Documentation: PMH: Agreed; PSxH: Agreed Nursing Documentation-PMH Hx Cardiac Problems: No - PNA, Anemia, Hyperlipidemia Hx Hypertension: Yes Hx Diabetes: Yes Hx Cancer: No Hx Dialysis: Yes - ESRD Social History: Denies: smoking, alcohol use, drug use, other Review of Systems All Other Systems: limited Physical Exam Vital Signs Date Time Temp Pulse Resp B/P (MAP) Pulse Ox O2 Delivery O2 Flow Rate FiO2 05/10/19 08:49 101.1 99 22 100/71 (81) 98 Room Air 05/10/19 20:07 21 Sp02 EP Interpretation: reviewed, normal Labs Laboratory Tests Test 05/11/19 06:00 White Blood Count 9.7 K/UL (4.8-10.8) Red Blood Count 2.78 M/UL (4.20-5.40) L Hemoglobin 7.7 G/DL (12.0-16.0) L Hematocrit 26.0 % (37.0-47.0) L Mean Corpuscular Volume 94 FL (80-99) Mean Corpuscular Hemoglobin 27.8 PG (27.0-31.0) Mean Corpuscular Hemoglobin Concent 29.7 G/DL (32.0-36.0) L Red Cell Distribution Width 22.5 % (11.6-14.8) H Platelet Count 261 K/UL (150-450) Mean Platelet Volume 5.9 FL (6.5-10.1) L Neutrophils (%) (Auto) % (45.0-75.0) Lymphocytes (%) (Auto) % (20.0-45.0) Monocytes (%) (Auto) % (1.0-10.0) Eosinophils (%) (Auto) % (0.0-3.0) Basophils (%) (Auto) % (0.0-2.0) Differential Total Cells Counted 100 Neutrophils % (Manual) 87 % (45-75) H Lymphocytes % (Manual) 8 % (20-45) L Monocytes % (Manual) 2 % (1-10) Eosinophils % (Manual) 3 % (0-3) Basophils % (Manual) 0 % (0-2) Band Neutrophils 0 % (0-8) Platelet Estimate Adequate Platelet Morphology Normal Hypochromasia 3+ Anisocytosis 3+ Sodium Level 140 MMOL/L (136-145) Potassium Level 3.9 MMOL/L (3.5-5.1) Chloride Level 102 MMOL/L (98-107) Carbon Dioxide Level 25 MMOL/L (21-32) Anion Gap 13 mmol/L (5-15) Blood Urea Nitrogen 52 mg/dL (7-18) H Creatinine 6.4 MG/DL (0.55-1.30) H Estimat Glomerular Filtration Rate mL/min (>60) Glucose Level 103 MG/DL (74-106) # Calcium Level 10.1 MG/DL (8.5-10.1) Phosphorus Level 5.8 MG/DL (2.5-4.9) H Troponin I 0.021 ng/mL (0.000-0.056) Albumin 2.1 G/DL (3.4-5.0) L Random Vancomycin Level 31.2 ug/mL General Appearance: no apparent distress Head: normocephalic EENT: PERRL/EOMI, normal ENT inspection Neck: supple Respiratory: normal breath sounds Cardiovascular: normal rate Gastrointestinal: normal inspection, non tender, soft, normal bowel sounds, non -distended, gt Rectal: deferred Genitourinary: no CVA tenderness Musculoskeletal: normal inspection, back normal Neurologic: alert, responsive Skin: normal inspection, normal color, no rash, warm/dry, palpation normal, well hydrated Lymphatic: normal inspection, no adenopathy Current Medications Current Medications Medications (Trade) Dose Ordered Sig/Selene Route PRN Reason Start Time Stop Time Status Last Admin Dose Admin Acetaminophen (Tylenol) 650 mg Q4H PRN ORAL Fever (temp>100.5F) 05/10/19 12:00 06/09/19 11:59 Albuterol/ Ipratropium (Albuterol/ Ipratropium) 3 ml Q4H PRN HHN Shortness of Breath 05/10/19 12:00 05/15/19 11:59 Allopurinol (Zyloprim) 100 mg DAILY GT 05/11/19 09:00 06/10/19 08:59 05/11/19 08:09 Amikacin Protocol (Amikacin pharmacy to dose) 1 ea DAILY PRN MISC Per rx protocol 05/10/19 12:00 06/09/19 11:59 Dextrose (Dextrose 50%) 25 ml Q30M PRN IV Hypoglycemia 05/10/19 12:00 06/09/19 11:59 Dextrose (Dextrose 50%) 50 ml Q30M PRN IV Hypoglycemia 05/10/19 12:00 06/09/19 11:59 Dextrose/Sodium Chloride 1,000 ml @ 50 mls/hr Q20H IV 05/10/19 12:30 06/09/19 12:29 05/11/19 08:14 Folic Acid (Folate) 1 mg DAILY ORAL 05/11/19 09:00 06/10/19 08:59 05/11/19 08:09 Heparin Sodium (Porcine) (Heparin 5000 units/ml) 5,000 units EVERY 12 HOURS SUBQ 05/10/19 21:00 06/09/19 20:59 05/11/19 08:10 Hydralazine HCl (Apresoline) 25 mg Q6H PRN ORAL For High Blood Pressure 05/10/19 12:00 06/09/19 11:59 Ondansetron HCl (Zofran) 4 mg Q6H PRN IVP Nausea & Vomiting 05/10/19 12:00 06/09/19 11:59 Polyethylene Glycol (Miralax) 17 gm DAILYPRN PRN ORAL Constipation 05/10/19 12:00 06/09/19 11:59 Temazepam (Restoril) 15 mg HSPRN PRN ORAL Insomnia 05/10/19 12:00 05/17/19 11:59 Vancomycin HCl (Vanco rx to dose) 1 ea DAILY PRN MISC Per rx protocol 05/10/19 12:00 06/09/19 11:59 GI: Plan Problems: (1) Pancreatitis (2) Anemia (3) Electrolyte imbalance (4) ESRD (end stage renal disease) on dialysis (5) GI bleed (6) DM (diabetes mellitus) Plan Will consider GI procedures pending work-up Maintain n.p.o. plus IV fluids Add lipid panel am labs to rule out hypertriglyceridemia pancreatitis Repeat lipase and amylase anemia work up OB stool r/o GI bleed monitor H&H, prn transfusions bowel regimen ppi fu labs Discussed with Dr. Perales. Thank you for this patient referral, we will follow. The patient was seen and examined at bedside and all new and available data was reviewed in the patients chart. I agree with the above findings, impression and plan. (Patient seen earlier today. Signature stamp does not reflect patient encounter time.). - MD Almita Grigsby,[facility] [employer] May 11, 2019 13:37
--- NOTE | 2019-05-11 14:40 | Consultation ---
Consult Note Consult Note asked to evaluate for dialysis management non verbal bilateral AKA fistula Right arm ER: Patient is brought in by paramedics from nursing facility with reports of fever Patient himself is a poor historian There was no reports of vomiting Patient has renal failure and is on dialysis Unknown regarding urine production Patient has bilateral ykgtf-cpq-ivai amputations Unknown regarding cough No rash reported No Known Allergies (Unverified , 07/16/17) Hx Cardiac Problems: No - PNA, Anemia, Hyperlipidemia Hx Hypertension: Yes Hx Diabetes: Yes Hx Dialysis: Yes - ESRD examined data reviewed Assessment/Plan (1) Sepsis (2) HTN (hypertension) (3) DM (diabetes mellitus) (4) ESRD (end stage renal disease) on dialysis (5) Anemia of CKD (6) Lipase over 2000 HD today ordered adjust BP meds Anemia mccarthy ? GI eval per orders Matthew Rich MD May 11, 2019 14:40
[2019-05-11] MEDS ORDERED: HydrALAZINE 25mg tab ORAL PRN (14:45)
--- NOTE | 2019-05-11 14:58 | NUR ---
NURSE NOTES:Pt presented on admission with multiple full thickness pressure injuries R ,L buttocks and L ischium .R sacrum extending down to lower R buttocks erythematous with multiple areas with slough,(+) maceration along edges and periwound.Wound is malodorous. Small amt seropurulent exudate noted.(L)20cm x (W)19cm.. L sacrum extending into L lower buttocks erythematous ,macerated with scattered areas of yellow slough through out base of wound.Wound is malodorous. Small amt seropurulent exudate noted (L)14cm x (W)8cm.Periwound noted to have darker skin tone that is indurated. L ischium darker than is normal skin tone and indurated with scattered open wound exuding small amt serous exudate. (L)4cm x (W)8.5cm. Incontinence associated dermatitis noted to perineum and medial aspects of both upper thigh.Skin is erythematous and denuded. Tx.Plan:Cleanse R ,L buttocks and L Ischium with Saline. Apply Therahoney to areas of Slough. Apply Triad paste to borders Cover with Optifoams .Change Daily and prn. Apply Triad Paste to Bilat groin and medial aspects of both upper thighs with each incontinence care. APM/TIAGO Mattress overlay. Reposition at least every 2hours or as tolerated.
[2019-05-11 15:27] LABS: FERRITIN 462 NG/ML (8-388)
[2019-05-11 15:53] LABS: % IRON SATURATION 41 % (15-50); IRON 43 ug/dL (50-175); TOTAL IRON BINDING CAPACITY 106 ug/dL (250-450)
[2019-05-11 16:00] VITALS: BP 114/37
--- NOTE | 2019-05-11 18:10 | NUR ---
NURSE NOTES: RN picked up blood from lab prior to transfusion; verified in lab. On floor, RN verified blood with CATA Manning. Vitals stable: Temp 97.7, BP101/43, NE 88. Pt currently receiving dialysis. Per benjamin Bro for dialysis nurse to give. Pt tolerating transfusion well at this time. Will continue to monitor.
--- NOTE | 2019-05-11 18:24 | History & Physical ---
History and Physical History & Physicial Dictated for Int med-Dr De La Cruz no. [id number]. Barrett Cooney MD May 11, 2019 18:24
--- NOTE | 2019-05-11 18:25 | NUR ---
NURSE NOTES: Pt tolerating transfusion well; vitals stable. Temp 98.1, BP 106/55, MT 95. No distress noted in pt.
--- NOTE | 2019-05-11 18:43 | Cardiology Report ---
APPROVED REPORT EXAM: Two-dimensional and M-mode echocardiogram with Doppler and color Doppler. INDICATION LV FUNCTION M-Mode DIMENSIONS IVSd1.4 (0.7-1.1cm)Left Atrium (MM)3.1 (1.6-4.0cm) LVDd4.2 (3.5-5.6cm)Aortic Root2.5 (2.0-3.7cm) PWd1.5 (0.7-1.1cm)Aortic Cusp Exc.1.7 (1.5-2.0cm) IVSs2.0 cm LVDs2.4 (2.5-4.0cm) PWs2.3 cm Normal left ventricular chamber size, systolic function and wall motion Left ventricular ejection fraction estimated to be 55-60%. Mild left ventricular hypertrophy by 2-D. Anterior Echo-free space, may be due to pericardial fat or effusion. All other cardiac chamber sizes are within normal limits. Aortic valve calcification with normal cusp excursion . Mildly thickened mitral valve leaflets with normal excursion. Mild mitral annulus and aortic root calcification. Pulmonic valve not well visualized. Subtotal views are not obtained due to wound spot . A color flow and spectral Doppler study was performed and revealed: No aortic insufficiency . Mitral diastolic velocities suggest reduced left ventricular relaxation c/w mild LV diastolic dysfunction (Grade I ) Trace mitral regurgitation. Trace tricuspid regurgitation. Tricuspid systolic velocities suggests peak right ventricular systolic pressure of 19mmHg,.
--- NOTE | 2019-05-11 18:50 | NUR ---
NURSE NOTES: Pt tolerated blood transfusion well and is alert in bed. Temp 98.1, BP 89/39 - pt receiving dialysis, OH 88. Will continue to monitor.
--- NOTE | 2019-05-11 19:23 | NUR ---
HAND-OFF: Report given to CATA Knight.
--- NOTE | 2019-05-11 19:45 | NUR ---
NURSE NOTES: Pt is in bed, awake. No acute distress noted. Pt is NPO now. D5 1/2NS running at 50ml/hr. G-tube present, clamped. HD was by [facility]. Dressing dry and intact on sacrum. Fall precaution in place. Bed alarm on. Bed locked low in position,side rails up and call light within reach. Pt will be monitored.
[2019-05-11 20:00] VITALS: BP 118/60
--- NOTE | 2019-05-11 20:15 | History and Physical Report ---
DATE OF ADMISSION: 05/10/2019 CHIEF COMPLAINT: The patient is an 83-year-old female, who presents with a chief complaint of fever. HISTORY OF PRESENT ILLNESS: The patient herself is nonverbal. Much of the history and physical is taken from the patient's chart. The patient is a resident of [facility]. The patient had apparently been having fever for couple of days. A chest x-ray revealed bilateral bibasilar pneumonia. The patient was started on Zosyn at the retirement facility. The patient presented to [place] emergency room. The patient is admitted for fever and bilateral basilar pneumonia. REVIEW OF SYSTEMS: Unable to assess secondary to the patient's mental status. PAST MEDICAL HISTORY: Significant for: 1. Type 2 diabetes. 2. End-stage renal disease, on hemodialysis. 3. Hypercholesterolemia. 4. Hypertension. 5. Gout. 6. Cerebrovascular disease, status post cerebrovascular accident. 7. Peripheral vascular disease. 8. History of deep venous thrombosis. PAST SURGICAL HISTORY: Significant for: 1. Right arm arteriovenous graft for dialysis. 2. Bilateral hpicw-say-fgry amputation. CURRENT MEDICATIONS: 1. Allopurinol 100 mg p.o. daily. 2. Folic acid 1 mg per G-tube daily. 3. Midodrine 10 mg per G-tube daily. 4. Multivitamin 1 tablet per G-tube daily. 5. Nephro-Xavier 0.8 mg per G-tube daily. 6. Pravastatin 20 mg per G-tube at bedtime. 7. Zinc sulfate 220 mg per G-tube daily. 8. Fosamax 1 packet per G-tube daily. 9. Zegerid 1 packet per G-tube daily. 10. Albuterol metered-dose inhaler two puffs p.o. q.i.d. p.r.n. ALLERGIES: Gabapentin. SOCIAL HISTORY: The patient is a . The patient is a resident of [facility] as above. The patient denies tobacco or alcohol use. PHYSICAL EXAMINATION: VITAL SIGNS: Temperature 101.1 degrees Fahrenheit, respirations 22, pulse 99, blood pressure 100/71, and pulse ox 98% on room air. GENERAL: The patient is a well-developed and well-nourished slightly obese female, in no apparent distress. HEENT: Eyes, pupils are equal and responsive to light and accommodation. Extraocular movements are intact. NECK: Supple without lymphadenopathy. CHEST: Decreased breath sounds with crackles at bilateral bases. Otherwise, without wheezes bilaterally. ABDOMINAL: Soft, nontender, and nondistended. Positive bowel sounds. No evidence of hepatosplenomegaly. Currently, no rebound or guarding noted. EXTREMITIES: Negative for clubbing, cyanosis, or edema. There is bilateral zedxj-sqs-qgvi amputation. NEUROLOGIC: Cranial nerves II through XII are grossly intact without focal deficits. LABORATORY STUDIES: WBC 13.1, hemoglobin 8.2, hematocrit 20.8, and platelets 264,000. Sodium 140, potassium 3.2, chloride 100, CO2 25, BUN 40, creatinine 5.4, and glucose 204. Troponin 0.034. BNP 3668. Chest x-ray was reported as no acute disease. ASSESSMENT: This is an 83-year-old female. 1. Fever. 2. Bibasilar pneumonia. 3. Diabetes type 2. 4. Hypercholesterolemia. 5. Hypertension. 6. End-stage renal disease. 7. Gout. 8. Cerebrovascular disease, status post cerebrovascular accident. 9. Peripheral vascular disease. 10. Deep venous thrombosis. 11. Bilateral ixfio-ofr-nscz amputation. TREATMENT: 1. Fever/bibasilar pneumonia. The patient has been placed empirically on amikacin and vancomycin. An Infectious Disease consultation has been obtained. We will follow recommendations of Infectious Disease. A Pulmonary consultation has been obtained with Dr. Rosemary Lui. 2. Diabetes type 2. The patient has been placed on a NovoLog sliding scale. 3. Hypercholesterolemia. Continue atorvastatin as above. 4. Hypertension. Continue hydralazine as above. 5. End-stage renal disease, on hemodialysis every Wednesday, , and Wednesday. A Nephrology consultation has been obtained with Dr. Rich. 6. Gout. Continue allopurinol as above. 7. Cerebrovascular disease. The patient is status post CVA. 8. Peripheral vascular disease. The patient is status post bilateral rnxwq-qub-ouyo amputation. 9. History of deep venous thrombosis. Barrett Cooney M.D. DR: ANN JOB#: [id number] CC:
[2019-05-12] VITALS: BP 122/54
--- NOTE | 2019-05-12 01:24 | NUR ---
NURSE NOTES: Pt is in bed, asleep, No acute distress noted. Vitals stable. Fall precaution in place.
[2019-05-12 04:00] VITALS: BP 121/60
[2019-05-12] MEDS: D5 1/2NS 1,000 ML IV SCH (04:34)
--- NOTE | 2019-05-12 05:56 | NUR ---
NURSE NOTES: Unable to collect stool for lab; no BM. Specimen container in the room to collect.
--- NOTE | 2019-05-12 07:00 | NUR ---
HAND-OFF: Report given to CATA Muir.
--- NOTE | 2019-05-12 07:30 | NUR ---
NURSE NOTES: Received pt from RN SERGEI, Pt is confused x1. Pt is in RA, no SOB or acute respiratory distress noted. pt is NPO as order. pt has intact iv access RH 22G is running well. Pt has sacral wound stage 3, dressing is intact. all needs attended, bed is locked and is in the lowest position, call light within easy reach. will continue to monitor.
[2019-05-12 08:00] VITALS: BP 111/59
[2019-05-12] MEDS: Heparin 5000 units/ml inj SUBQ SCH ×2 (08:23→20:47)
[2019-05-12 08:49] LABS: BASOPHILS % (AUTO) 0.5 % (0.0-2.0); EOSINOPHILS % (AUTO) 4.2 % (0.0-3.0); HEMATOCRIT 33.8 % (37.0-47.0); HEMOGLOBIN 10.3 G/DL (12.0-16.0); LYMPHOCYTES % (AUTO) 15.7 % (20.0-45.0); MEAN CORPUSCULAR VOLUME 93 FL (80-99); MONOCYTES % (AUTO) 2.9 % (1.0-10.0); NEUTROPHILS % (AUTO) 76.7 % (45.0-75.0); PLATELET COUNT 240 K/UL (150-450); RED BLOOD COUNT 3.64 M/UL (4.20-5.40); RED CELL DISTRIBUTION WIDTH 20.8 % (11.6-14.8); WHITE BLOOD COUNT 5.2 K/UL (4.8-10.8)
[2019-05-12 09:27] LABS: ALANINE AMINOTRANSFERASE 40 U/L (12-78); ALBUMIN 2.2 G/DL (3.4-5.0); ALBUMIN/GLOBULIN RATIO 0.4 (1.0-2.7); ALKALINE PHOSPHATASE 110 U/L (46-116); AMYLASE 162 U/L (25-115); ANION GAP 13 mmol/L (5-15); ASPARTATE AMINO TRANSFERASE 34 U/L (15-37); BILIRUBIN,TOTAL 0.4 MG/DL (0.2-1.0); BLOOD UREA NITROGEN 34 mg/dL (7-18); CARBON DIOXIDE 26 MMOL/L (21-32); CHLORIDE 102 MMOL/L (98-107); CHOLESTEROL 84 MG/DL (< 200); CREATININE 5.2 MG/DL (0.55-1.30); HDL CHOLESTEROL 29 MG/DL (40-60); POTASSIUM 3.5 MMOL/L (3.5-5.1); SODIUM 141 MMOL/L (136-145); TRIGLYCERIDES 86 MG/DL (30-150)
--- NOTE | 2019-05-12 09:38 | NUR ---
DISCHARGE AND EVALUATION SWALLOW/SPEECH THERAPY SUMMARY: REFERRED BY DR. FORTE FOR SWALLOW EVALUATION, SEE FULL REPORT TO FOLLOW. DYSPHAGIA RISK FACTORS FOR THIS 83 Y.O.F.: ACUTE SEPSIS, FEVER, COUGH, BILATERAL LOWER LOBE PNA, GIB, PANCREATITIS, ANEMIA H/O CVA BASAL GANGLIA LACUNAR INFARCTS,ESRD/HD, DM2, OVERWEIGHT GT AT SNF, RESP ISSUES ON ALBUTEROL AT SNF NPO ON GT FORMULA. [place] [facility] [place]. CURRENTLY NPO, RECEIVING TF. PER RD NEPHROVITE 1X DAILY (INITIALLY ORDERED 05/11 RENAL NECTAR THICK DIET PER DR FORTE NOT GIVEN). PER RN, NPO AND MEDS THROUGH GT. HAS SON. ROOM AIR, ALERT, NONVERBAL, GOOD EYE CONTACT, BUT DOES NOT FOLLOW ORAL COMMANDS. APPARENTLY EDENTULOUS. INITIAL IMPRESSIONS: HIGH RISK FOR OROPHARYNGEAL DYSPHAGIA AND SILENT ASPIRATION GIVEN H/O CVA IN THE PAST. HIGH RISK FOR POOR ORAL HYGIENE DUE TO NOT RECEPTIVE TO ALLOWING ORAL CARE (BEHAVIORAL RESISTANCE SHE SQUEEZES HER MOUTH CLOSED) HIGH RISK FOR DEHYDRATION/MALNUTRITION IF ONLY GIVEN PO (NOT RECEPTIVE TO PO TRIALS) RECOMMENDATIONS: CONTINUE WITH GT FEEDINGS AND COMPLETE AGGRESSIVE ORAL CARE IF SHE ALLOWS (TRY TO WORK WITH FAMILY IF SHE IS MORE RECEPTIVE) WILL D/C FROM [facility]ED [facility] AT THIS TIME. CONSIDER SNF CAKE TESTER F/UP IF HER CONCERT SINGER TO PROGRAM IMPROVES. D/W RN (PLACIDO) AND EDUCATED/TRAINED IN ORAL CARE AND IMPORTANCE TO REDUCE BACTERIAL BUILDUP. D/W DR FORTE WHO AGREED.
--- NOTE | 2019-05-12 11:31 | NUR ---
NURSE NOTES: Received call from laboratory technologist SANGEETA, about blood culture is positive, Dr MORTON notified, he will F/U. will continue to monitor.
[2019-05-12 12:00] VITALS: BP 121/49
[2019-05-12] MEDS ORDERED: HydrALAZINE 25mg tab GT PRN (12:01)
--- NOTE | 2019-05-12 13:03 | Consultation ---
History of Present Illness General Date patient seen: May 12, 2019 Chief Complaint: Fever Referring physician: Rosemary Olivares Reason for Consultation: Pancreatitis Present Illness HPI Ms Mccauley is a 83 yo female with PMHx DM, ESRD on HD, HTN, Gout, HLD, CVA, and DVT who is not verbal and was sent to the ED on 05/10/19 for B/L PNA but was found to have pancreatitis on evaluation. She had WBCs of 13 (Now resolved) and is breathing well on RA. CXR showed No definite acute process and Evidence old granulomatous disease. Lipase was elevated at 739. He is currently off abx. Since admit the patient has been afebrile. ID was called for positive blood Cx. PMHx/PSHx DM ESRD on HD HTN Gout HLD CVA DVT Right arm arteriovenous graft for dialysis. Bilateral [id number] amputation. Soch HX: Lives at a intermediate FamHx Unable to obtain as patient not verbal Allergies: Coded Allergies: No Known Allergies (Unverified , 07/16/17) Medication History Scheduled Allopurinol* (Allopurinol*), 100 MG ORAL DAILY, (Reported) Allopurinol* (Allopurinol*), 100 MG GT DAILY Amoxicillin/Potassium Clav 250-62.5 Mg/5 Ml (Augmentin 250-62.5 Mg/5 Ml), 250 MG GT EVERY 8 HOURS Epoetin Alli (Procrit), 10,000 UNITS SUBQ MON-WED-WED Famotidine (Pepcid), 20 MG ORAL BEDTIME, (Reported) Folic Acid* (Folic Acid*), 1 MG ORAL DAILY, (Reported) Insulin Aspart (Novolog Flexpen), 0 UNITS SUBQ EVERY 6 HOURS Lansoprazole* (Lansoprazole*), 30 MG GT DAILY Midodrine* (Proamatine*), 10 MG GT DAILY, (Reported) Multivitamins* (Multivitamins*), 1 TAB GT DAILY, (Reported) Omeprazole/Sodium Bicarbonate (Zegerid 40 Mg Packet), 40 PACKET GT BID, ( Reported) Wubobkqnxugj-Ancv-Hewzqpaj,Iso (Zosyn 3.375 Gm Pre Mix-Bag), 3.375 GM IVPB EVERY 8 HOURS, (Reported) Uretbkgzyycw-Ecpd-Dkbmnogy,Iso (Zosyn 3.375 Gm Pre Mix-Bag), 2.25 GM IVPB EVERY 8 HOURS, (Reported) Polyethylene Glycol 3350* (Miralax*), 17 GM GT DAILY, (Reported) Pravastatin Sod* (Pravachol*), 40 MG ORAL BEDTIME, (Reported) Pravastatin Sod* (Pravachol*), 40 MG GT BEDTIME Vitamin B Cmplx/Vit C/Folic AC (Nephro-Xavier Tablet), 1 TAB GT DAILY, (Reported) Zinc Sulfate (Zinc Sulfate*), 220 MG ORAL DAILY, (Reported) Scheduled PRN Acetaminophen (Acetaminophen), 650 MG GT Q4H PRN Albuterol Sulfate* (Albuterol Sulfate Hhn*), 3 ML INH Q4H PRN for Shortness of Breath, (Reported) Diphenhydramine Hcl* (Benadryl*), 25 MG ORAL Q6H PRN for Itching, (Reported) Hydralazine Hcl* (Hydralazine Hcl*), 25 MG ORAL PRN PRN for For High Blood Pressure, (Reported) Hydrocodone Bit/Acetaminophen 5-325* ([place] 5-325*), 1 TAB ORAL Q4H PRN for For Pain, (Reported) Hydrocodone Bit/Acetaminophen 5-325* ([place] 5-325*), 1 TAB GT Q4H PRN Ondansetron* (Zofran*), 4 MG IVP Q6H PRN Zolpidem Tartrate* (Ambien*), 5 MG GT HSPRN PRN [D50w], 0 ML IV STAT PRN Miscellaneous Medications Bisacodyl (Dulcolax), 10 MG RC, (Reported) Lactobacillus Rhamnosus GG (Culturelle), 2 TAB GT, (Reported) Naph,Mb-Db/K Ph,Mbdb (Phos-Nak Packet), 1 EACH GT, (Reported) Patient History Healthcare decision maker Resuscitation status Full Code Advanced Directive on File Review of Systems ROS Narrative Unable to obtain as patient not verbal Physical Exam Last 24 Hour Vital Signs Date Time Temp Pulse Resp B/P (MAP) Pulse Ox O2 Delivery O2 Flow Rate FiO2 05/12/19 12:00 98.4 78 18 121/49 (73) 97 05/12/19 09:00 Room Air 05/12/19 08:31 81 20 99 Room Air 21 05/12/19 08:00 98.0 75 17 111/59 (76) 99 05/12/19 04:00 98.1 78 20 121/60 (80) 96 05/12/19 00:00 98.2 79 18 122/54 (76) 98 05/11/19 21:00 Room Air 05/11/19 20:43 78 20 99 Room Air 21 05/11/19 20:00 97.7 78 18 118/60 (79) 100 05/11/19 16:00 97.9 78 16 114/37 (62) 100 Intake and Output 05/11/19 05/12/19 19:00 07:00 Intake Total 50 ml 600 ml Output Total 1000 ml Balance -950 ml 600 ml Intake IV Total 50 ml 600 ml Hemodialysis UF 1000 ml Laboratory Tests Test 05/12/19 07:26 White Blood Count 5.2 K/UL (4.8-10.8) Red Blood Count 3.64 M/UL (4.20-5.40) L Hemoglobin 10.3 G/DL (12.0-16.0) #L Hematocrit 33.8 % (37.0-47.0) L Mean Corpuscular Volume 93 FL (80-99) Mean Corpuscular Hemoglobin 28.4 PG (27.0-31.0) Mean Corpuscular Hemoglobin Concent 30.6 G/DL (32.0-36.0) L Red Cell Distribution Width 20.8 % (11.6-14.8) H Platelet Count 240 K/UL (150-450) Mean Platelet Volume 6.2 FL (6.5-10.1) L Neutrophils (%) (Auto) 76.7 % (45.0-75.0) H Lymphocytes (%) (Auto) 15.7 % (20.0-45.0) L Monocytes (%) (Auto) 2.9 % (1.0-10.0) Eosinophils (%) (Auto) 4.2 % (0.0-3.0) H Basophils (%) (Auto) 0.5 % (0.0-2.0) Reticulocyte Count 1.0 % (0.5-2.0) Prothrombin Time 10.3 SEC (9.30-11.50) Prothromb Time International Ratio 1.0 (0.9-1.1) Activated Partial Thromboplast Time 24 SEC (23-33) Sodium Level 141 MMOL/L (136-145) Potassium Level 3.5 MMOL/L (3.5-5.1) Chloride Level 102 MMOL/L (98-107) Carbon Dioxide Level 26 MMOL/L (21-32) Anion Gap 13 mmol/L (5-15) Blood Urea Nitrogen 34 mg/dL (7-18) H Creatinine 5.2 MG/DL (0.55-1.30) H Estimat Glomerular Filtration Rate mL/min (>60) Glucose Level 61 MG/DL (74-106) L Uric Acid 4.8 MG/DL (2.6-7.2) Calcium Level 10.0 MG/DL (8.5-10.1) Total Bilirubin 0.4 MG/DL (0.2-1.0) Aspartate Amino Transf (AST/SGOT) 34 U/L (15-37) Alanine Aminotransferase (ALT/SGPT) 40 U/L (12-78) Alkaline Phosphatase 110 U/L (46-116) Troponin I 0.023 ng/mL (0.000-0.056) Total Protein 7.3 G/DL (6.4-8.2) Albumin 2.2 G/DL (3.4-5.0) L Globulin 5.1 g/dL Albumin/Globulin Ratio 0.4 (1.0-2.7) L Triglycerides Level 86 MG/DL (30-150) Cholesterol Level 84 MG/DL (< 200) LDL Cholesterol 45 mg/dL (<100) HDL Cholesterol 29 MG/DL (40-60) L Cholesterol/HDL Ratio 2.9 (3.3-4.4) L Amylase Level 162 U/L (25-115) H Lipase 478 U/L (73-393) H Carcinoembryonic Antigen Pending Thyroid Stimulating Hormone (TSH) 6.003 uiU/mL (0.358-3.740) Free Thyroxine 1.17 NG/DL (0.76-1.46) Random Vancomycin Level 30.7 ug/mL Height (Feet): 4 Height (Inches): 0.00 Weight (Pounds): 170 Medications Current Medications Medications (Trade) Dose Ordered Sig/Selene Route PRN Reason Start Time Stop Time Status Last Admin Dose Admin Acetaminophen (Tylenol) 650 mg Q4H PRN ORAL Fever (temp>100.5F) 05/10/19 12:00 06/09/19 11:59 Albuterol/ Ipratropium (Albuterol/ Ipratropium) 3 ml Q4H PRN HHN Shortness of Breath 05/10/19 12:00 05/15/19 11:59 Amikacin Protocol (Amikacin pharmacy to dose) 1 ea DAILY PRN MISC Per rx protocol 05/10/19 12:00 06/09/19 11:59 Amikacin Sulfate 500 mg/Sodium Chloride 112 ml @ 224 mls/hr ONCE ONCE IV 05/12/19 15:00 05/12/19 15:29 Dextrose (Dextrose 50%) 25 ml Q30M PRN IV Hypoglycemia 05/10/19 12:00 06/09/19 11:59 Dextrose (Dextrose 50%) 50 ml Q30M PRN IV Hypoglycemia 05/10/19 12:00 06/09/19 11:59 Heparin Sodium (Porcine) (Heparin 5000 units/ml) 5,000 units EVERY 12 HOURS SUBQ 05/10/19 21:00 06/09/19 20:59 05/12/19 08:23 Hydralazine HCl (Apresoline) 25 mg Q4H PRN GT For High Blood Pressure 05/12/19 12:01 06/09/19 12:00 Ondansetron HCl (Zofran) 4 mg Q6H PRN IVP Nausea & Vomiting 05/10/19 12:00 06/09/19 11:59 Polyethylene Glycol (Miralax) 17 gm DAILYPRN PRN ORAL Constipation 05/10/19 12:00 06/09/19 11:59 Temazepam (Restoril) 15 mg HSPRN PRN ORAL Insomnia 05/10/19 12:00 05/17/19 11:59 Vancomycin HCl (Vanco rx to dose) 1 ea DAILY PRN MISC Per rx protocol 05/10/19 12:00 06/09/19 11:59 Objective Narrative Gen: NAD on RA HEENT: NCAT, MMM, PERRL, No Oral lesion, no scleral icterus NECK: full range of motion, supple, no meningismus, No LAD, No JVD LUNGS: Coarse B/L CARDS: RRR, S1, S2, No M/R/G, ABD: Soft, NT, ND, No R/G, + BS, No HSM, No Masses : Deferred Ext: C/C/E, Pulses 2+ B/L (DP, Rad): NEURO: Awake, Not following commands SKIN: Warm/dry, No rashes Assessment/Plan Assessment/Plan: Stephani Mccauley is a 83 yo female with PMHx DM, ESRD on HD, HTN, Gout, HLD, CVA, and DVT who is not verbal and was sent to the ED on 05/10/19 for B/L PNA but was found to have pancreatitis on evaluation. Pancreatis Lipase 739 No sign of active infection Leukocytosis resovled Afebrile Positive blood Cx Most likely a containment Blood Cx 05/10/19 one set only GPC CXR showed No definite acute process and Evidence old granulomatous disease. Lipase was elevated at 739. He is currently off abx. DM ESRD on HD HTN Gout HLD CVA DVT PLAN - Continue Vancomycin pending Blood Cx - 05/12/19 Amikacin #2 -f/u repeat blood Cx - Monitor CBC and Temps Thank you for this consult. We will continue to follow the patient with you. Matt Cardenas MD May 12, 2019 13:02
--- NOTE | 2019-05-12 13:13 | Pulmonology Progress Note ---
Assessment/Plan Problems: (1) Sepsis (2) HTN (hypertension) (3) DM (diabetes mellitus) (4) ESRD (end stage renal disease) on dialysis Assessment/Plan improving WBC lowe check cultures iv abx renal evaluation symptomatic treatment gtube feeding dvt prophylaxis. Subjective ROS Limited/Unobtainable: No Constitutional: Reports: no symptoms HEENT: Repors: no symptoms Respiratory: Reports: no symptoms Allergies: Coded Allergies: No Known Allergies (Unverified , 07/16/17) Objective Last 24 Hour Vital Signs Date Time Temp Pulse Resp B/P (MAP) Pulse Ox O2 Delivery O2 Flow Rate FiO2 05/12/19 12:00 98.4 78 18 121/49 (73) 97 05/12/19 09:00 Room Air 05/12/19 08:31 81 20 99 Room Air 21 05/12/19 08:00 98.0 75 17 111/59 (76) 99 05/12/19 04:00 98.1 78 20 121/60 (80) 96 05/12/19 00:00 98.2 79 18 122/54 (76) 98 05/11/19 21:00 Room Air 05/11/19 20:43 78 20 99 Room Air 21 05/11/19 20:00 97.7 78 18 118/60 (79) 100 05/11/19 16:00 97.9 78 16 114/37 (62) 100 Intake and Output 05/11/19 05/12/19 19:00 07:00 Intake Total 50 ml 600 ml Output Total 1000 ml Balance -950 ml 600 ml Intake IV Total 50 ml 600 ml Hemodialysis UF 1000 ml Objective General Appearance: WD/WN Respiratory/Chest: chest wall non-tender, lungs clear Breasts: no masses Cardiovascular: normal peripheral pulses, normal rate Abdomen: normal bowel sounds Genitourinary: normal external genitalia Skin: no rash Microbiology Date/Time Source Procedure Growth Status 05/10/19 09:05 Blood Blood Culture - Preliminary Resulted 05/10/19 09:48 Nasal Nares MRSA Culture - Final NO METHICILLIN RESISTANT STAPH AUREUS... Complete 05/10/19 09:48 Rectum VRE Culture - Final Enterococcus Faecium - Vre Complete 05/10/19 09:48 Rectum - Final NO CARBAPENEM-RESISTANT ENTEROBACTERI... Complete Laboratory Tests 05/12/19 07:26: White Blood Count 5.2, Red Blood Count 3.64L, Hemoglobin 10.3#L, Hematocrit 33.8L, Mean Corpuscular Volume 93, Mean Corpuscular Hemoglobin 28.4, Mean Corpuscular Hemoglobin Concent 30.6L, Red Cell Distribution Width 20.8H, Platelet Count 240, Mean Platelet Volume 6.2L, Neutrophils (%) (Auto) 76.7H, Lymphocytes (%) (Auto) 15.7L, Monocytes (%) (Auto) 2.9, Eosinophils (%) (Auto) 4.2H, Basophils (%) (Auto) 0.5, Reticulocyte Count 1.0, Prothrombin Time 10.3, Prothromb Time International Ratio 1.0, Activated Partial Thromboplast Time 24, Sodium Level 141, Potassium Level 3.5, Chloride Level 102, Carbon Dioxide Level 26, Anion Gap 13, Blood Urea Nitrogen 34H, Creatinine 5.2H, Estimat Glomerular Filtration Rate , Glucose Level 61L, Uric Acid 4.8, Calcium Level 10.0, Total Bilirubin 0.4, Aspartate Amino Transf (AST/SGOT) 34, Alanine Aminotransferase ( ALT/SGPT) 40, Alkaline Phosphatase 110, Troponin I 0.023, Total Protein 7.3, Albumin 2.2L, Globulin 5.1, Albumin/Globulin Ratio 0.4L, Triglycerides Level 86 , Cholesterol Level 84, LDL Cholesterol 45, HDL Cholesterol 29L, Cholesterol/ HDL Ratio 2.9L, Amylase Level 162H, Lipase 478H, Carcinoembryonic Antigen [ Pending], Thyroid Stimulating Hormone (TSH) 6.003H, Free Thyroxine 1.17, Random Vancomycin Level 30.7 Current Medications Medications (Trade) Dose Ordered Sig/Selene Route PRN Reason Start Time Stop Time Status Last Admin Dose Admin Acetaminophen (Tylenol) 650 mg Q4H PRN ORAL Fever (temp>100.5F) 05/10/19 12:00 06/09/19 11:59 Albuterol/ Ipratropium (Albuterol/ Ipratropium) 3 ml Q4H PRN HHN Shortness of Breath 05/10/19 12:00 05/15/19 11:59 Dextrose (Dextrose 50%) 25 ml Q30M PRN IV Hypoglycemia 05/10/19 12:00 06/09/19 11:59 Dextrose (Dextrose 50%) 50 ml Q30M PRN IV Hypoglycemia 05/10/19 12:00 06/09/19 11:59 Heparin Sodium (Porcine) (Heparin 5000 units/ml) 5,000 units EVERY 12 HOURS SUBQ 05/10/19 21:00 06/09/19 20:59 05/12/19 08:23 Hydralazine HCl (Apresoline) 25 mg Q4H PRN GT For High Blood Pressure 05/12/19 12:01 06/09/19 12:00 Ondansetron HCl (Zofran) 4 mg Q6H PRN IVP Nausea & Vomiting 05/10/19 12:00 06/09/19 11:59 Polyethylene Glycol (Miralax) 17 gm DAILYPRN PRN ORAL Constipation 05/10/19 12:00 06/09/19 11:59 Temazepam (Restoril) 15 mg HSPRN PRN ORAL Insomnia 05/10/19 12:00 05/17/19 11:59 Vancomycin HCl (Vanco rx to dose) 1 ea DAILY PRN MISC Per rx protocol 05/10/19 12:00 06/09/19 11:59 Rosemary Lui MD May 12, 2019 13:13
--- NOTE | 2019-05-12 13:40 | NUR ---
NURSE NOTES: Dr CHAO visited pt and he is aware about wound around g tube. he will F/U. g tube dressing changed. will continue to monitor.
[2019-05-12] MEDS ORDERED: Zinc Oxide Oint 2oz TOPIC PRN (13:45)
[2019-05-12] MEDS ORDERED: Amikacin 500 MG in NS 110 ML IV ONE (15:00)
--- NOTE | 2019-05-12 15:05 | Nephrology Progress Note ---
Assessment/Plan Problem List: (1) ESRD (end stage renal disease) on dialysis (2) Pancreatitis (3) Anemia due to chronic kidney disease Assessment (1) Sepsis (2) HTN (hypertension) (3) DM (diabetes mellitus) (4) ESRD (end stage renal disease) on dialysis (5) Anemia of CKD (6) Lipase over 1999 Plan HD 05/11 next 05/13 adjust BP meds Anemia mccarthy ? GI eval per orders Subjective ROS Limited/Unobtainable: No Constitutional: Reports: malaise Objective Objective Last 24 Hour Vital Signs Date Time Temp Pulse Resp B/P (MAP) Pulse Ox O2 Delivery O2 Flow Rate FiO2 05/12/19 12:00 98.4 78 18 121/49 (73) 97 05/12/19 09:00 Room Air 05/12/19 08:31 81 20 99 Room Air 21 05/12/19 08:00 98.0 75 17 111/59 (76) 99 05/12/19 04:00 98.1 78 20 121/60 (80) 96 05/12/19 00:00 98.2 79 18 122/54 (76) 98 05/11/19 21:00 Room Air 05/11/19 20:43 78 20 99 Room Air 21 05/11/19 20:00 97.7 78 18 118/60 (79) 100 05/11/19 16:00 97.9 78 16 114/37 (62) 100 Intake and Output 05/11/19 05/12/19 18:59 06:59 Intake Total 600 ml Output Total 1000 ml Balance -1000 ml 600 ml Intake IV Total 600 ml Hemodialysis UF 1000 ml Laboratory Tests 05/12/19 07:26: White Blood Count 5.2, Red Blood Count 3.64L, Hemoglobin 10.3#L, Hematocrit 33.8L, Mean Corpuscular Volume 93, Mean Corpuscular Hemoglobin 28.4, Mean Corpuscular Hemoglobin Concent 30.6L, Red Cell Distribution Width 20.8H, Platelet Count 240, Mean Platelet Volume 6.2L, Neutrophils (%) (Auto) 76.7H, Lymphocytes (%) (Auto) 15.7L, Monocytes (%) (Auto) 2.9, Eosinophils (%) (Auto) 4.2H, Basophils (%) (Auto) 0.5, Reticulocyte Count 1.0, Prothrombin Time 10.3, Prothromb Time International Ratio 1.0, Activated Partial Thromboplast Time 24, Sodium Level 141, Potassium Level 3.5, Chloride Level 102, Carbon Dioxide Level 26, Anion Gap 13, Blood Urea Nitrogen 34H, Creatinine 5.2H, Estimat Glomerular Filtration Rate , Glucose Level 61L, Uric Acid 4.8, Calcium Level 10.0, Total Bilirubin 0.4, Aspartate Amino Transf (AST/SGOT) 34, Alanine Aminotransferase ( ALT/SGPT) 40, Alkaline Phosphatase 110, Troponin I 0.023, Total Protein 7.3, Albumin 2.2L, Globulin 5.1, Albumin/Globulin Ratio 0.4L, Triglycerides Level 86 , Cholesterol Level 84, LDL Cholesterol 45, HDL Cholesterol 29L, Cholesterol/ HDL Ratio 2.9L, Amylase Level 162H, Lipase 478H, Carcinoembryonic Antigen [ Pending], Thyroid Stimulating Hormone (TSH) 6.003H, Free Thyroxine 1.17, Random Vancomycin Level 30.7 Height (Feet): 4 Height (Inches): 0.00 Weight (Pounds): 170 General Appearance: no apparent distress Cardiovascular: normal rate Respiratory/Chest: decreased breath sounds Abdomen: soft, other - GT + Extremities: other - bilat Matthew Carlos MD May 12, 2019 15:05
--- NOTE | 2019-05-12 15:17 | Consultation ---
History of Present Illness General Date patient seen: May 12, 2019 Reason for Hospitalization: Fever Present Illness HPI This is a very pleasant 83 year old female with multiple medical comorbidities half-way resident with prior bilateral AKA who presented with fever and abnormal labs. patient poor historian but does respond. she is not able to move herself and full care dependant. on admission noted to have wounds requiring care. also with pancreatitis and leukocytosis. surgery called to evaluate. patient seen, chart reviewed, patient examined. Allergies: Coded Allergies: No Known Allergies (Unverified , 07/16/17) Medication History Scheduled Allopurinol* (Allopurinol*), 100 MG ORAL DAILY, (Reported) Allopurinol* (Allopurinol*), 100 MG GT DAILY Amoxicillin/Potassium Clav 250-62.5 Mg/5 Ml (Augmentin 250-62.5 Mg/5 Ml), 250 MG GT EVERY 8 HOURS Epoetin Alli (Procrit), 10,000 UNITS SUBQ WED-WED-WED Famotidine (Pepcid), 20 MG ORAL BEDTIME, (Reported) Folic Acid* (Folic Acid*), 1 MG ORAL DAILY, (Reported) Insulin Aspart (Novolog Flexpen), 0 UNITS SUBQ EVERY 6 HOURS Lansoprazole* (Lansoprazole*), 30 MG GT DAILY Midodrine* (Proamatine*), 10 MG GT DAILY, (Reported) Multivitamins* (Multivitamins*), 1 TAB GT DAILY, (Reported) Omeprazole/Sodium Bicarbonate (Zegerid 40 Mg Packet), 40 PACKET GT BID, ( Reported) Ykuowaezcjee-Cisb-Gifpjsfr,Iso (Zosyn 3.375 Gm Pre Mix-Bag), 3.375 GM IVPB EVERY 8 HOURS, (Reported) Axbchggtcclr-Ickh-Laeixvxk,Iso (Zosyn 3.375 Gm Pre Mix-Bag), 2.25 GM IVPB EVERY 8 HOURS, (Reported) Polyethylene Glycol 3350* (Miralax*), 17 GM GT DAILY, (Reported) Pravastatin Sod* (Pravachol*), 40 MG ORAL BEDTIME, (Reported) Pravastatin Sod* (Pravachol*), 40 MG GT BEDTIME Vitamin B Cmplx/Vit C/Folic AC (Nephro-Xavier Tablet), 1 TAB GT DAILY, (Reported) Zinc Sulfate (Zinc Sulfate*), 220 MG ORAL DAILY, (Reported) Scheduled PRN Acetaminophen (Acetaminophen), 650 MG GT Q4H PRN Albuterol Sulfate* (Albuterol Sulfate Hhn*), 3 ML INH Q4H PRN for Shortness of Breath, (Reported) Diphenhydramine Hcl* (Benadryl*), 25 MG ORAL Q6H PRN for Itching, (Reported) Hydralazine Hcl* (Hydralazine Hcl*), 25 MG ORAL PRN PRN for For High Blood Pressure, (Reported) Hydrocodone Bit/Acetaminophen 5-325* ([place] 5-325*), 1 TAB ORAL Q4H PRN for For Pain, (Reported) Hydrocodone Bit/Acetaminophen 5-325* ([place] 5-325*), 1 TAB GT Q4H PRN Ondansetron* (Zofran*), 4 MG IVP Q6H PRN Zolpidem Tartrate* (Ambien*), 5 MG GT HSPRN PRN [D50w], 0 ML IV STAT PRN Miscellaneous Medications Bisacodyl (Dulcolax), 10 MG RC, (Reported) Lactobacillus Rhamnosus GG (Culturelle), 2 TAB GT, (Reported) Naph,Mb-Db/K Ph,Mbdb (Phos-Nak Packet), 1 EACH GT, (Reported) Patient History Limited by: age, medical condition, other History Provided By: Patient, Medical Record, PMD Healthcare decision maker Resuscitation status Full Code Advanced Directive on File Past Medical/Surgical History Past Medical/Surgical History: (1) Colonization with VRE (vancomycin-resistant enterococcus) (2) MRSA nasal colonization (3) HTN (hypertension) (4) DM (diabetes mellitus) (5) Sepsis (6) Pancreatitis (7) Electrolyte imbalance (8) GI bleed (9) Fever (10) Anemia (11) ESRD (end stage renal disease) on dialysis (12) Anemia due to chronic kidney disease Review of Systems Review of Symptoms General ROS: no weight loss or fever Psychological ROS: no depression or mood changes, no memory loss Ophthalmic ROS: no visual changes or eye irritation ENT ROS: no nasal congestion, hearing loss, dizziness Allergy and Immunology ROS: no allergic symptoms or urticaria Hematological and Lymphatic ROS: no swollen glands, unusual bleeding or bruising Endocrine ROS: no polyuria, polydipsia, weight changes, temperature intolerance Respiratory ROS: no cough, shortness of breath, or wheezing Cardiovascular ROS: no chest pain or dyspnea on exertion Gastrointestinal ROS: denies abdominal pain, no bright red blood in stool. Musculoskeletal ROS: no myalgias or arthralgias Neurological ROS: no TIA or stroke symptoms Dermatological ROS: no new or changing skin lesions, rashes or pruritis Physical Exam Physical Exam General appearance: alert, cooperative, no distress, appears stated age Head: Normocephalic, without obvious abnormality, atraumatic Eyes: conjunctivae/corneas clear. PERRL, EOM's intact. Fundi benign Throat: Lips, mucosa, and tongue normal. Teeth and gums normal Neck: supple, symmetrical, trachea midline, no adenopathy, thyroid: not enlarged, symmetric, no tenderness/mass/nodules, no carotid bruit and no JVD Lungs: clear to auscultation bilaterally Heart: regular rate and rhythm, S1, S2 normal, no murmur, click, rub or gallop Abdomen: soft, non-tender. Bowel sounds normal. No masses, no organomegaly Extremities: bilateral aka Pulses: 2+ and symmetric Skin: Skin color, texture, turgor normal. No rashes or lesions Neurologic: Grossly normal Last 24 Hour Vital Signs Date Time Temp Pulse Resp B/P (MAP) Pulse Ox O2 Delivery O2 Flow Rate FiO2 05/12/19 12:00 98.4 78 18 121/49 (73) 97 05/12/19 09:00 Room Air 05/12/19 08:31 81 20 99 Room Air 21 05/12/19 08:00 98.0 75 17 111/59 (76) 99 05/12/19 04:00 98.1 78 20 121/60 (80) 96 05/12/19 00:00 98.2 79 18 122/54 (76) 98 05/11/19 21:00 Room Air 05/11/19 20:43 78 20 99 Room Air 21 05/11/19 20:00 97.7 78 18 118/60 (79) 100 05/11/19 16:00 97.9 78 16 114/37 (62) 100 Intake and Output 05/11/19 05/12/19 19:00 07:00 Intake Total 50 ml 600 ml Output Total 1000 ml Balance -950 ml 600 ml Intake IV Total 50 ml 600 ml Hemodialysis UF 1000 ml Laboratory Tests Test 05/12/19 07:26 White Blood Count 5.2 K/UL (4.8-10.8) Red Blood Count 3.64 M/UL (4.20-5.40) L Hemoglobin 10.3 G/DL (12.0-16.0) #L Hematocrit 33.8 % (37.0-47.0) L Mean Corpuscular Volume 93 FL (80-99) Mean Corpuscular Hemoglobin 28.4 PG (27.0-31.0) Mean Corpuscular Hemoglobin Concent 30.6 G/DL (32.0-36.0) L Red Cell Distribution Width 20.8 % (11.6-14.8) H Platelet Count 240 K/UL (150-450) Mean Platelet Volume 6.2 FL (6.5-10.1) L Neutrophils (%) (Auto) 76.7 % (45.0-75.0) H Lymphocytes (%) (Auto) 15.7 % (20.0-45.0) L Monocytes (%) (Auto) 2.9 % (1.0-10.0) Eosinophils (%) (Auto) 4.2 % (0.0-3.0) H Basophils (%) (Auto) 0.5 % (0.0-2.0) Reticulocyte Count 1.0 % (0.5-2.0) Prothrombin Time 10.3 SEC (9.30-11.50) Prothromb Time International Ratio 1.0 (0.9-1.1) Activated Partial Thromboplast Time 24 SEC (23-33) Sodium Level 141 MMOL/L (136-145) Potassium Level 3.5 MMOL/L (3.5-5.1) Chloride Level 102 MMOL/L (98-107) Carbon Dioxide Level 26 MMOL/L (21-32) Anion Gap 13 mmol/L (5-15) Blood Urea Nitrogen 34 mg/dL (7-18) H Creatinine 5.2 MG/DL (0.55-1.30) H Estimat Glomerular Filtration Rate mL/min (>60) Glucose Level 61 MG/DL (74-106) L Uric Acid 4.8 MG/DL (2.6-7.2) Calcium Level 10.0 MG/DL (8.5-10.1) Total Bilirubin 0.4 MG/DL (0.2-1.0) Aspartate Amino Transf (AST/SGOT) 34 U/L (15-37) Alanine Aminotransferase (ALT/SGPT) 40 U/L (12-78) Alkaline Phosphatase 110 U/L (46-116) Troponin I 0.023 ng/mL (0.000-0.056) Total Protein 7.3 G/DL (6.4-8.2) Albumin 2.2 G/DL (3.4-5.0) L Globulin 5.1 g/dL Albumin/Globulin Ratio 0.4 (1.0-2.7) L Triglycerides Level 86 MG/DL (30-150) Cholesterol Level 84 MG/DL (< 200) LDL Cholesterol 45 mg/dL (<100) HDL Cholesterol 29 MG/DL (40-60) L Cholesterol/HDL Ratio 2.9 (3.3-4.4) L Amylase Level 162 U/L (25-115) H Lipase 478 U/L (73-393) H Carcinoembryonic Antigen Pending Thyroid Stimulating Hormone (TSH) 6.003 uiU/mL (0.358-3.740) Free Thyroxine 1.17 NG/DL (0.76-1.46) Random Vancomycin Level 30.7 ug/mL Height (Feet): 4 Height (Inches): 0.00 Weight (Pounds): 170 Medications Current Medications Medications (Trade) Dose Ordered Sig/Selene Route PRN Reason Start Time Stop Time Status Last Admin Dose Admin Acetaminophen (Tylenol) 650 mg Q4H PRN ORAL Fever (temp>100.5F) 05/10/19 12:00 06/09/19 11:59 Albuterol/ Ipratropium (Albuterol/ Ipratropium) 3 ml Q4H PRN HHN Shortness of Breath 05/10/19 12:00 05/15/19 11:59 Dextrose (Dextrose 50%) 25 ml Q30M PRN IV Hypoglycemia 05/10/19 12:00 06/09/19 11:59 Dextrose (Dextrose 50%) 50 ml Q30M PRN IV Hypoglycemia 05/10/19 12:00 06/09/19 11:59 Heparin Sodium (Porcine) (Heparin 5000 units/ml) 5,000 units EVERY 12 HOURS SUBQ 05/10/19 21:00 06/09/19 20:59 05/12/19 08:23 Hydralazine HCl (Apresoline) 25 mg Q4H PRN GT For High Blood Pressure 05/12/19 12:01 06/09/19 12:00 Ondansetron HCl (Zofran) 4 mg Q6H PRN IVP Nausea & Vomiting 05/10/19 12:00 06/09/19 11:59 Polyethylene Glycol (Miralax) 17 gm DAILYPRN PRN ORAL Constipation 05/10/19 12:00 06/09/19 11:59 Temazepam (Restoril) 15 mg HSPRN PRN ORAL Insomnia 05/10/19 12:00 05/17/19 11:59 Vancomycin HCl (Vanco rx to dose) 1 ea DAILY PRN MISC Per rx protocol 05/10/19 12:00 06/09/19 11:59 Zinc Oxide (Zinc Oxide) 1 applic BID TOPIC 05/12/19 18:00 06/11/19 13:44 Assessment/Plan Problem List: (1) HTN (hypertension) ICD Codes: I10 - Essential (primary) hypertension SNOMED: 17872048 (2) DM (diabetes mellitus) ICD Codes: E11.9 - Type 2 diabetes mellitus without complications SNOMED: 99057611 (3) Sepsis Assessment & Plan: DAILY ESTIMATED NEEDS: Needs based on ESRD/HD, wound/ 56kg adj for BL AKA 30-35 kcals/kg 2545-8771 total kcals 1.25-1.8 g protein/kg 70-101 g total protein Fluid per MD, on HD NUTRITION DIAGNOSIS: (1) Increased kcal/pro intake needs R/T renal dysfunction, wound healing as evidenced by ESRD dx, on HD. w/ sacral wound, pending eval. (2) Altered nutrition related lab values R/T clinical status as evidenced by elev Lipase >2000. ENTERAL NUTRITION RECOMMENDATIONS: Nepro @ 40ml/hr x 24 hrs to provide 960ml, 1728kcal, 78g pro, 698ml free water * As medically able, rec to start NEPRO @20ml/hr for 6 hrs * Increase 10ml/hr q4-6 hrs to goal * HOB over 30 degrees/ water flush per MD ----- ADDITIONAL RECOMMENDATIONS: * Calibrated dry wt post HD * Brian 1pkt BID for wound healing via GT w/ TF order * Add NEPHROVITE x1 daily * F/up w/ WC eval ICD Codes: A41.9 - Sepsis, unspecified organism SNOMED: 29896603 (4) Pancreatitis Assessment & Plan: on admission with leukocytosis and pancreatitis asymptomatic clinically now trending down US ordered will monitor trend labs thank you ICD Codes: K85.90 - Acute pancreatitis without necrosis or infection, unspecified SNOMED: 49949388 (5) Electrolyte imbalance ICD Codes: E87.8 - Other disorders of electrolyte and fluid balance, not elsewhere classified SNOMED: 513254871 (6) GI bleed ICD Codes: K92.2 - Gastrointestinal hemorrhage, unspecified SNOMED: 98857332 (7) Fever ICD Codes: R50.9 - Fever, unspecified SNOMED: 891423903 (8) Anemia ICD Codes: D64.9 - Anemia, unspecified SNOMED: 477484840 (9) ESRD (end stage renal disease) on dialysis ICD Codes: N18.6 - End stage renal disease; Z99.2 - Dependence on renal dialysis SNOMED: 981844820 (10) Anemia due to chronic kidney disease ICD Codes: N18.9 - Chronic kidney disease, unspecified; D63.1 - Anemia in chronic kidney disease SNOMED: 537723284 (11) Colonization with VRE (vancomycin-resistant enterococcus) ICD Codes: Z22.338 - Carrier of other streptococcus SNOMED: 895598449 (12) MRSA nasal colonization ICD Codes: Z22.322 - Carrier or suspected carrier of Methicillin resistant Staphylococcus aureus SNOMED: 033834940, 071332744 (13) Decubitus skin ulcer Assessment & Plan: Pt presented on admission with multiple full thickness pressure injuries R ,L buttocks and L ischium .R sacrum extending down to lower R buttocks erythematous with multiple areas with slough,(+) maceration along edges and periwound.Wound is malodorous. Small amt seropurulent exudate noted.(L )20cm x (W)19cm.. L sacrum extending into L lower buttocks erythematous ,macerated with scattered areas of yellow slough through out base of wound.Wound is malodorous. Small amt seropurulent exudate noted (L)14cm x (W)8cm.Periwound noted to have darker skin tone that is indurated. L ischium darker than is normal skin tone and indurated with scattered open wound exuding small amt serous exudate. (L)4cm x (W)8.5cm. Incontinence associated dermatitis noted to perineum and medial aspects of both upper thigh.Skin is erythematous and denuded. Tx.Plan: Cleanse R ,L buttocks and L Ischium with Saline. Apply Therahoney to areas of Slough. Apply Triad paste to borders Cover with Optifoams .Change Daily and prn. Apply Triad Paste to Bilat groin and medial aspects of both upper thighs with each incontinence care. APM/TIAGO Mattress overlay. Reposition at least every 2hours or as tolerated. ICD Codes: L89.90 - Pressure ulcer of unspecified site, unspecified stage SNOMED: 554847865 Willian Machado May 12, 2019 15:17
--- NOTE | 2019-05-12 15:33 | NUR ---
NURSE NOTES: g tube feeding started at 12oo as order. started with 10ml/hr and after 1 hour increased to 20 ml/hr and pt tolerate well. no vomiting and residual noted. at 1400 increased to 30mjl/hr and pt tolerate well. will continue to monitor.
[2019-05-12 16:00] VITALS: BP 117/52
--- NOTE | 2019-05-12 16:15 | Consultation ---
DATE OF CONSULTATION: 05/12/2019 CHIEF COMPLAINT: Anemia and dysphagia. HISTORY OF PRESENT ILLNESS: Most of history per chart. The patient is an 83-year-old female admitted from assisted with complaint of fever. The patient was found to be profoundly anemic. GI consultation requested for possible evaluation for GI bleeding. PAST MEDICAL HISTORY: 1. Type 2 diabetes. 2. End-stage renal disease, on hemodialysis. 3. Hypercholesterolemia. 4. Hypertension 5. Gout. 6. CVA. 7. Dysphagia with G-tube. 8. Peripheral vascular disease. 9. DVT. ALLERGIES: Gabapentin. MEDICATIONS: Please see medication reconciliation list. SOCIAL HISTORY: The patient denies any recent history of tobacco, alcohol, or drug abuse. The patient at assisted. PAST SURGICAL HISTORY: AV shunt placement for hemodialysis, bilateral [id number]-[id number] amputations. PHYSICAL EXAMINATION: VITAL SIGNS: Temperature 98.4, pulse 78, respiration 18, blood pressure is 121/49. HEENT: Normocephalic and atraumatic. Pale conjunctivae. NECK: Supple. No evidence of obvious lymphadenopathy. CARDIOVASCULAR: Regular rate and rhythm. Plus S1 and S2. LUNGS: Decreased breath sounds bilaterally based on supine examination. ABDOMEN: Soft and nontender. G-tube in place. No rebound. No guarding. No peritoneal sign. EXTREMITIES: Status post bilateral . LABORATORY AND DIAGNOSTIC DATA: White count 5.2, hemoglobin 10, hematocrit 33, platelet count 240. ASSESSMENT AND PLAN: The patient is an 83-year-old female with severe anemia, No overt obvious GI bleeding. PLAN: Anemia workup. Send stool OB. The patient has positive blood cultures. We are going to hold off doing any endoscopy or colonoscopy at this time unless there is evidence of GI bleeding. G-tube had minimum leakage, G-tube was tightened at the bedside. Order zinc oxide to be applied at the G-tube site twice a day. I want to thank Dr. De La Cruz, for this kind referral. Ezequiel Perales M.D. DR: Paolo JOB#: [id number] CC: Castro De La Cruz M.D.; Fax#: [phone]
[2019-05-12] MEDS: Zinc Oxide Oint 2oz TOPIC SCH (17:02)
--- NOTE | 2019-05-12 17:53 | NUR ---
NURSE NOTES: back wound and g tube wound treatment done as order and pt tolerate well. will continue to monitor.
--- NOTE | 2019-05-12 18:01 | Internal Med Progress Note ---
Subjective Date of Service: May 12, 2019 Physician Name Barrett Cooney Attending Physician Castro De La Cruz MD Current Medications Medications (Trade) Dose Ordered Sig/Selene Route PRN Reason Start Time Stop Time Status Last Admin Dose Admin Acetaminophen (Tylenol) 650 mg Q4H PRN ORAL Fever (temp>100.5F) 05/10/19 12:00 06/09/19 11:59 Albuterol/ Ipratropium (Albuterol/ Ipratropium) 3 ml Q4H PRN HHN Shortness of Breath 05/10/19 12:00 05/15/19 11:59 Dextrose (Dextrose 50%) 25 ml Q30M PRN IV Hypoglycemia 05/10/19 12:00 06/09/19 11:59 Dextrose (Dextrose 50%) 50 ml Q30M PRN IV Hypoglycemia 05/10/19 12:00 06/09/19 11:59 Heparin Sodium (Porcine) (Heparin 5000 units/ml) 5,000 units EVERY 12 HOURS SUBQ 05/10/19 21:00 06/09/19 20:59 05/12/19 08:23 Hydralazine HCl (Apresoline) 25 mg Q4H PRN GT For High Blood Pressure 05/12/19 12:01 06/09/19 12:00 Ondansetron HCl (Zofran) 4 mg Q6H PRN IVP Nausea & Vomiting 05/10/19 12:00 06/09/19 11:59 Polyethylene Glycol (Miralax) 17 gm DAILYPRN PRN ORAL Constipation 05/10/19 12:00 06/09/19 11:59 Temazepam (Restoril) 15 mg HSPRN PRN ORAL Insomnia 05/10/19 12:00 05/17/19 11:59 Vancomycin HCl (Vanco rx to dose) 1 ea DAILY PRN MISC Per rx protocol 05/10/19 12:00 06/09/19 11:59 Zinc Oxide (Zinc Oxide) 1 applic BID TOPIC 05/12/19 18:00 06/11/19 13:44 05/12/19 17:02 Allergies: Coded Allergies: No Known Allergies (Unverified , 07/16/17) ROS Limited/Unobtainable: Yes Subjective 83 YO F admitted with fever. Now bilateral pneumonia and sepsis. Also anemia and pancreatitis. Cover For Int Med-Dr De La Cruz Objective Last Vital Signs Date Time Temp Pulse Resp B/P (MAP) Pulse Ox O2 Delivery O2 Flow Rate FiO2 05/12/19 16:00 98.5 75 17 117/52 (73) 96 05/12/19 09:00 Room Air 05/12/19 08:31 21 Laboratory Tests Test 05/12/19 07:26 White Blood Count 5.2 K/UL (4.8-10.8) Red Blood Count 3.64 M/UL (4.20-5.40) L Hemoglobin 10.3 G/DL (12.0-16.0) #L Hematocrit 33.8 % (37.0-47.0) L Mean Corpuscular Volume 93 FL (80-99) Mean Corpuscular Hemoglobin 28.4 PG (27.0-31.0) Mean Corpuscular Hemoglobin Concent 30.6 G/DL (32.0-36.0) L Red Cell Distribution Width 20.8 % (11.6-14.8) H Platelet Count 240 K/UL (150-450) Mean Platelet Volume 6.2 FL (6.5-10.1) L Neutrophils (%) (Auto) 76.7 % (45.0-75.0) H Lymphocytes (%) (Auto) 15.7 % (20.0-45.0) L Monocytes (%) (Auto) 2.9 % (1.0-10.0) Eosinophils (%) (Auto) 4.2 % (0.0-3.0) H Basophils (%) (Auto) 0.5 % (0.0-2.0) Reticulocyte Count 1.0 % (0.5-2.0) Prothrombin Time 10.3 SEC (9.30-11.50) Prothromb Time International Ratio 1.0 (0.9-1.1) Activated Partial Thromboplast Time 24 SEC (23-33) Sodium Level 141 MMOL/L (136-145) Potassium Level 3.5 MMOL/L (3.5-5.1) Chloride Level 102 MMOL/L (98-107) Carbon Dioxide Level 26 MMOL/L (21-32) Anion Gap 13 mmol/L (5-15) Blood Urea Nitrogen 34 mg/dL (7-18) H Creatinine 5.2 MG/DL (0.55-1.30) H Estimat Glomerular Filtration Rate mL/min (>60) Glucose Level 61 MG/DL (74-106) L Uric Acid 4.8 MG/DL (2.6-7.2) Calcium Level 10.0 MG/DL (8.5-10.1) Total Bilirubin 0.4 MG/DL (0.2-1.0) Aspartate Amino Transf (AST/SGOT) 34 U/L (15-37) Alanine Aminotransferase (ALT/SGPT) 40 U/L (12-78) Alkaline Phosphatase 110 U/L (46-116) Troponin I 0.023 ng/mL (0.000-0.056) Total Protein 7.3 G/DL (6.4-8.2) Albumin 2.2 G/DL (3.4-5.0) L Globulin 5.1 g/dL Albumin/Globulin Ratio 0.4 (1.0-2.7) L Triglycerides Level 86 MG/DL (30-150) Cholesterol Level 84 MG/DL (< 200) LDL Cholesterol 45 mg/dL (<100) HDL Cholesterol 29 MG/DL (40-60) L Cholesterol/HDL Ratio 2.9 (3.3-4.4) L Amylase Level 162 U/L (25-115) H Lipase 478 U/L (73-393) H Carcinoembryonic Antigen Pending Thyroid Stimulating Hormone (TSH) 6.003 uiU/mL (0.358-3.740) Free Thyroxine 1.17 NG/DL (0.76-1.46) Random Vancomycin Level 30.7 ug/mL Microbiology Date/Time Source Procedure Growth Status 05/10/19 09:05 Blood Blood Culture - Preliminary Resulted 05/10/19 09:48 Nasal Nares MRSA Culture - Final NO METHICILLIN RESISTANT STAPH AUREUS... Complete 05/10/19 09:48 Rectum VRE Culture - Final Enterococcus Faecium - Vre Complete 05/10/19 09:48 Rectum - Final NO CARBAPENEM-RESISTANT ENTEROBACTERI... Complete Intake and Output 05/11/19 05/12/19 18:59 06:59 Intake Total 600 ml Output Total 1000 ml Balance -1000 ml 600 ml Intake IV Total 600 ml Hemodialysis UF 1000 ml Objective PHYSICAL EXAMINATION: GENERAL: The patient is a well-developed and well-nourished slightly obese female, in no apparent distress. HEENT: Eyes, pupils are equal and responsive to light and accommodation. Extraocular movements are intact. NECK: Supple without lymphadenopathy. CHEST: Decreased breath sounds with crackles at bilateral bases. Otherwise, without wheezes bilaterally. ABDOMINAL: Soft, nontender, and nondistended. Positive bowel sounds. No evidence of hepatosplenomegaly. Currently, no rebound or guarding noted. EXTREMITIES: Negative for clubbing, cyanosis, or edema. There is bilateral jkjua-sxp-aygz amputation. NEUROLOGIC: Cranial nerves II through XII are grossly intact without focal deficits. Assessment/Plan Assessment/Plan ASSESSMENT: This is an 83-year-old female. 1. Fever. 2. Bibasilar pneumonia. 3. Diabetes type 2. 4. Hypercholesterolemia. 5. Hypertension. 6. End-stage renal disease. 7. Gout. 8. Cerebrovascular disease, status post cerebrovascular accident. 9. Peripheral vascular disease. 10. Deep venous thrombosis. 11. Bilateral sgmbe-djj-oggy amputation. 12. Sepsis 13. Anemia TREATMENT: 1. Fever/bibasilar pneumonia. The patient has been placed empirically on amikacin and vancomycin. An Infectious Disease consultation has been obtained with Dr Cardenas. We will follow recommendations of Infectious Disease. A Pulmonary consultation has been obtained with Dr. Rosemary Lui. 2. Diabetes type 2. The patient has been placed on a NovoLog sliding scale. 3. Hypercholesterolemia. Continue atorvastatin as above. 4. Hypertension. Continue hydralazine as above. 5. End-stage renal disease, on hemodialysis every Wednesday, , and Wednesday. A Nephrology consultation has been obtained with Dr. Rich. 6. Gout. Continue allopurinol as above. 7. Cerebrovascular disease. The patient is status post CVA. 8. Peripheral vascular disease. The patient is status post bilateral jfwzk-kit-kbul amputation. 9. History of deep venous thrombosis. 10. Await blood culture results 11. Anemia workup in progress Barrett Cooney MD May 12, 2019 18:01
--- NOTE | 2019-05-12 19:20 | NUR ---
HAND-OFF: Report given to RN SERGEI. Endorsed to F/U for stool culture because pt doesn't have BM during my shift.
--- NOTE | 2019-05-12 19:28 | NUR ---
NURSE NOTES: Pt is in bed, awake and verbal. No acute distress noted. HOB elevated. Nepro running at 30ml/hr via G-tube. Wound dressing dry and intact. Fall precaution in place. Bed alarm on. bed locked low in position,side rails up and call light within reach. Pt will be monitored.
[2019-05-12 20:00] VITALS: BP 126/58
[2019-05-13] VITALS: BP 123/52
[2019-05-13 04:00] VITALS: BP 127/57
--- NOTE | 2019-05-13 06:25 | NUR ---
NURSE NOTES: Stool sample sent to lab for occult blood. Color Corrector to come back for blood draw for AM labs.
--- NOTE | 2019-05-13 07:10 | NUR ---
HAND-OFF: Report given to CATA Manning. Informed to follow up with lab for blood draw.
--- NOTE | 2019-05-13 07:15 | Pulmonology Progress Note ---
Assessment/Plan Problems: (1) Sepsis (2) HTN (hypertension) (3) DM (diabetes mellitus) (4) ESRD (end stage renal disease) on dialysis Assessment/Plan OB penidng improving WBC lowe check cultures iv abx renal evaluation symptomatic treatment gtube feeding dvt prophylaxis. Subjective ROS Limited/Unobtainable: No Allergies: Coded Allergies: No Known Allergies (Unverified , 07/16/17) Objective Last 24 Hour Vital Signs Date Time Temp Pulse Resp B/P (MAP) Pulse Ox O2 Delivery O2 Flow Rate FiO2 05/13/19 04:00 99.2 79 17 127/57 (80) 98 05/13/19 00:00 98.2 83 17 123/52 (75) 97 05/12/19 22:52 78 18 95 Room Air 21 05/12/19 21:00 Room Air 05/12/19 20:00 99.6 79 17 126/58 (80) 97 05/12/19 16:00 98.5 75 17 117/52 (73) 96 05/12/19 12:00 98.4 78 18 121/49 (73) 97 05/12/19 09:00 Room Air 05/12/19 08:31 81 20 99 Room Air 21 05/12/19 08:00 98.0 75 17 111/59 (76) 99 Intake and Output 05/12/19 05/13/19 19:00 07:00 Intake Total 380 ml 390 ml Output Total 0 ml Balance 380 ml 390 ml Intake Free Water 60 ml IV Total 200 ml Tube Feeding 180 ml 330 ml Output Urine Total 0 ml Stool Total 0 ml # Bowel Movements 1 Objective General Appearance: WD/WN Respiratory/Chest: chest wall non-tender, lungs clear Breasts: no masses Cardiovascular: normal peripheral pulses, normal rate Abdomen: normal bowel sounds Genitourinary: normal external genitalia Skin: no rash above knee amputation Microbiology Date/Time Source Procedure Growth Status 05/10/19 09:05 Blood Blood Culture - Preliminary Staphylococcus Sp Coag Neg Resulted 05/10/19 09:05 Blood Blood Culture - Preliminary NO GROWTH AFTER 48 HOURS Resulted 05/10/19 09:48 Nasal Nares MRSA Culture - Final NO METHICILLIN RESISTANT STAPH AUREUS... Complete 05/10/19 09:48 Rectum VRE Culture - Final Enterococcus Faecium - Vre Complete 05/10/19 09:48 Rectum - Final NO CARBAPENEM-RESISTANT ENTEROBACTERI... Complete Laboratory Tests 05/12/19 07:26: White Blood Count 5.2, Red Blood Count 3.64L, Hemoglobin 10.3#L, Hematocrit 33.8L, Mean Corpuscular Volume 93, Mean Corpuscular Hemoglobin 28.4, Mean Corpuscular Hemoglobin Concent 30.6L, Red Cell Distribution Width 20.8H, Platelet Count 240, Mean Platelet Volume 6.2L, Neutrophils (%) (Auto) 76.7H, Lymphocytes (%) (Auto) 15.7L, Monocytes (%) (Auto) 2.9, Eosinophils (%) (Auto) 4.2H, Basophils (%) (Auto) 0.5, Reticulocyte Count 1.0, Prothrombin Time 10.3, Prothromb Time International Ratio 1.0, Activated Partial Thromboplast Time 24, Sodium Level 141, Potassium Level 3.5, Chloride Level 102, Carbon Dioxide Level 26, Anion Gap 13, Blood Urea Nitrogen 34H, Creatinine 5.2H, Estimat Glomerular Filtration Rate , Glucose Level 61L, Uric Acid 4.8, Calcium Level 10.0, Total Bilirubin 0.4, Aspartate Amino Transf (AST/SGOT) 34, Alanine Aminotransferase ( ALT/SGPT) 40, Alkaline Phosphatase 110, Troponin I 0.023, Total Protein 7.3, Albumin 2.2L, Globulin 5.1, Albumin/Globulin Ratio 0.4L, Triglycerides Level 86 , Cholesterol Level 84, LDL Cholesterol 45, HDL Cholesterol 29L, Cholesterol/ HDL Ratio 2.9L, Amylase Level 162H, Lipase 478H, Carcinoembryonic Antigen [ Pending], Thyroid Stimulating Hormone (TSH) 6.003H, Free Thyroxine 1.17, Random Vancomycin Level 30.7 05/13/19 05:45: Stool Occult Blood [Pending] Current Medications Medications (Trade) Dose Ordered Sig/Selene Route PRN Reason Start Time Stop Time Status Last Admin Dose Admin Acetaminophen (Tylenol) 650 mg Q4H PRN ORAL Fever (temp>100.5F) 05/10/19 12:00 06/09/19 11:59 Albuterol/ Ipratropium (Albuterol/ Ipratropium) 3 ml Q4H PRN HHN Shortness of Breath 05/10/19 12:00 05/15/19 11:59 Dextrose (Dextrose 50%) 25 ml Q30M PRN IV Hypoglycemia 05/10/19 12:00 06/09/19 11:59 Dextrose (Dextrose 50%) 50 ml Q30M PRN IV Hypoglycemia 05/10/19 12:00 06/09/19 11:59 Heparin Sodium (Porcine) (Heparin 5000 units/ml) 5,000 units EVERY 12 HOURS SUBQ 05/10/19 21:00 06/09/19 20:59 05/12/19 20:47 Hydralazine HCl (Apresoline) 25 mg Q4H PRN GT For High Blood Pressure 05/12/19 12:01 06/09/19 12:00 Ondansetron HCl (Zofran) 4 mg Q6H PRN IVP Nausea & Vomiting 05/10/19 12:00 06/09/19 11:59 Polyethylene Glycol (Miralax) 17 gm DAILYPRN PRN ORAL Constipation 05/10/19 12:00 06/09/19 11:59 Temazepam (Restoril) 15 mg HSPRN PRN ORAL Insomnia 05/10/19 12:00 05/17/19 11:59 Vancomycin HCl (Vanco rx to dose) 1 ea DAILY PRN MISC Per rx protocol 05/10/19 12:00 06/09/19 11:59 Zinc Oxide (Zinc Oxide) 1 applic BID TOPIC 05/12/19 18:00 06/11/19 13:44 05/12/19 17:02 Rosemary Lui MD May 13, 2019 07:15
--- NOTE | 2019-05-13 07:44 | NUR ---
NURSE NOTES: Received pt from CATA Knight with stable condition. (R)upper Arm AV shunt intact. no respiratory distress noted. breathing regular and unlabored. Tolerating well on GT with no residual. HOB elevated for aspiration precaution. bed in lowest position. call light within reach at all time. will continue to monitor
[2019-05-13 07:56] VITALS: BP 127/58
[2019-05-13] MEDS: Heparin 5000 units/ml inj SUBQ SCH ×2 (08:33→20:04)
[2019-05-13] MEDS: Zinc Oxide Oint 2oz TOPIC SCH ×2 (08:33→17:06)
--- NOTE | 2019-05-13 10:15 | General Progress Note ---
Assessment/Plan Problem List: (1) G tube feedings ICD Codes: Z93.1 - Gastrostomy status SNOMED: 320380464, 837961514, 116558816 (2) HTN (hypertension) ICD Codes: I10 - Essential (primary) hypertension SNOMED: 42652969 (3) DM (diabetes mellitus) ICD Codes: E11.9 - Type 2 diabetes mellitus without complications SNOMED: 41290481 (4) Pancreatitis ICD Codes: K85.90 - Acute pancreatitis without necrosis or infection, unspecified SNOMED: 55998774 (5) Anemia ICD Codes: D64.9 - Anemia, unspecified SNOMED: 193229930 (6) ESRD (end stage renal disease) on dialysis ICD Codes: N18.6 - End stage renal disease; Z99.2 - Dependence on renal dialysis SNOMED: 977045709 Assessment/Plan: fu stool ob consider EGD and colonoscopy on Wednesday fu H&H increase GTF to 35 Subjective ROS Limited/Unobtainable: No Allergies: Coded Allergies: No Known Allergies (Unverified , 07/16/17) Objective Last 24 Hour Vital Signs Date Time Temp Pulse Resp B/P (MAP) Pulse Ox O2 Delivery O2 Flow Rate FiO2 05/13/19 09:27 Room Air 05/13/19 07:56 98.8 81 18 127/58 (81) 97 05/13/19 04:00 99.2 79 17 127/57 (80) 98 05/13/19 00:00 98.2 83 17 123/52 (75) 97 05/12/19 22:52 78 18 95 Room Air 21 05/12/19 21:00 Room Air 05/12/19 20:00 99.6 79 17 126/58 (80) 97 05/12/19 16:00 98.5 75 17 117/52 (73) 96 05/12/19 12:00 98.4 78 18 121/49 (73) 97 Intake and Output 05/12/19 05/13/19 19:00 07:00 Intake Total 380 ml 390 ml Output Total 0 ml Balance 380 ml 390 ml Intake Free Water 60 ml IV Total 200 ml Tube Feeding 180 ml 330 ml Output Urine Total 0 ml Stool Total 0 ml # Bowel Movements 1 Laboratory Tests 05/13/19 05:45: Stool Occult Blood [Pending] 05/13/19 08:40: Stool Occult Blood [Pending] Height (Feet): 4 Height (Inches): 0.00 Weight (Pounds): 170 General Appearance: no apparent distress EENT: normal ENT inspection Neck: supple Cardiovascular: normal rate Respiratory/Chest: decreased breath sounds Abdomen: normal bowel sounds, non tender, soft Extremities: non-tender Ezequiel Perales MD May 13, 2019 10:15
--- NOTE | 2019-05-13 11:30 | Nephrology Progress Note ---
Assessment/Plan Problem List: (1) ESRD (end stage renal disease) on dialysis (2) Pancreatitis (3) Anemia due to chronic kidney disease Assessment (1) Sepsis (2) HTN (hypertension) (3) DM (diabetes mellitus) (4) ESRD (end stage renal disease) on dialysis (5) Anemia of CKD (6) Lipase over 1999 Plan HD 05/11 next 05/13 adjust BP meds Anemia mccarthy ? GI eval per orders Subjective ROS Limited/Unobtainable: No Objective Objective Last 24 Hour Vital Signs Date Time Temp Pulse Resp B/P (MAP) Pulse Ox O2 Delivery O2 Flow Rate FiO2 05/13/19 09:27 Room Air 05/13/19 07:56 98.8 81 18 127/58 (81) 97 05/13/19 04:00 99.2 79 17 127/57 (80) 98 05/13/19 00:00 98.2 83 17 123/52 (75) 97 05/12/19 22:52 78 18 95 Room Air 21 05/12/19 21:00 Room Air 05/12/19 20:00 99.6 79 17 126/58 (80) 97 05/12/19 16:00 98.5 75 17 117/52 (73) 96 05/12/19 12:00 98.4 78 18 121/49 (73) 97 Intake and Output 05/12/19 05/13/19 19:00 07:00 Intake Total 380 ml 450 ml Output Total 0 ml Balance 380 ml 450 ml Intake Free Water 90 ml IV Total 200 ml Tube Feeding 180 ml 360 ml Output Urine Total 0 ml Stool Total 0 ml # Bowel Movements 1 Laboratory Tests 05/13/19 05:45: Stool Occult Blood [Pending] 05/13/19 08:40: Stool Occult Blood [Pending] Height (Feet): 4 Height (Inches): 0.00 Weight (Pounds): 170 General Appearance: no apparent distress Cardiovascular: normal rate Respiratory/Chest: lungs clear Abdomen: soft Objective no change Matthew Rich MD May 13, 2019 11:30
[2019-05-13 11:59] LABS: BASOPHILS % (AUTO) 0.6 % (0.0-2.0); EOSINOPHILS % (AUTO) 2.7 % (0.0-3.0); HEMATOCRIT 35.7 % (37.0-47.0); HEMOGLOBIN 10.6 G/DL (12.0-16.0); LYMPHOCYTES % (AUTO) 15.3 % (20.0-45.0); MEAN CORPUSCULAR VOLUME 94 FL (80-99); MONOCYTES % (AUTO) 3.5 % (1.0-10.0); NEUTROPHILS % (AUTO) 77.9 % (45.0-75.0); PLATELET COUNT 281 K/UL (150-450); RED BLOOD COUNT 3.82 M/UL (4.20-5.40); RED CELL DISTRIBUTION WIDTH 20.2 % (11.6-14.8); WHITE BLOOD COUNT 5.9 K/UL (4.8-10.8)
[2019-05-13 12:00] VITALS: BP 124/63
--- NOTE | 2019-05-13 12:03 | NUR ---
NURSE NOTES: called [facility] neph[facility] re pt hd today
[2019-05-13 12:12] LABS: ANION GAP 13 mmol/L (5-15); BLOOD UREA NITROGEN 45 mg/dL (7-18); CALCIUM 10.3 MG/DL (8.5-10.1); CARBON DIOXIDE 26 MMOL/L (21-32); CHLORIDE 99 MMOL/L (98-107); POTASSIUM 4.1 MMOL/L (3.5-5.1); SODIUM 138 MMOL/L (136-145)
[2019-05-13 12:17] LABS: % IRON SATURATION 28 % (15-50); IRON 34 ug/dL (50-175); TOTAL IRON BINDING CAPACITY 121 ug/dL (250-450)
--- NOTE | 2019-05-13 12:51 | Internal Med Progress Note ---
Subjective Date of Service: May 13, 2019 Physician Name Barrett Cooney Attending Physician Castro De La Cruz MD Current Medications Medications (Trade) Dose Ordered Sig/Selene Route PRN Reason Start Time Stop Time Status Last Admin Dose Admin Acetaminophen (Tylenol) 650 mg Q4H PRN ORAL Fever (temp>100.5F) 05/10/19 12:00 06/09/19 11:59 Albuterol/ Ipratropium (Albuterol/ Ipratropium) 3 ml Q4H PRN HHN Shortness of Breath 05/10/19 12:00 05/15/19 11:59 Dextrose (Dextrose 50%) 25 ml Q30M PRN IV Hypoglycemia 05/10/19 12:00 06/09/19 11:59 Dextrose (Dextrose 50%) 50 ml Q30M PRN IV Hypoglycemia 05/10/19 12:00 06/09/19 11:59 Heparin Sodium (Porcine) (Heparin 5000 units/ml) 5,000 units EVERY 12 HOURS SUBQ 05/10/19 21:00 06/09/19 20:59 05/13/19 08:33 Hydralazine HCl (Apresoline) 25 mg Q4H PRN GT For High Blood Pressure 05/12/19 12:01 06/09/19 12:00 Ondansetron HCl (Zofran) 4 mg Q6H PRN IVP Nausea & Vomiting 05/10/19 12:00 06/09/19 11:59 Polyethylene Glycol (Miralax) 17 gm DAILYPRN PRN ORAL Constipation 05/10/19 12:00 06/09/19 11:59 Temazepam (Restoril) 15 mg HSPRN PRN ORAL Insomnia 05/10/19 12:00 05/17/19 11:59 Vancomycin HCl (Vanco rx to dose) 1 ea DAILY PRN MISC Per rx protocol 05/10/19 12:00 06/09/19 11:59 Zinc Oxide (Zinc Oxide) 1 applic BID TOPIC 05/12/19 18:00 06/11/19 13:44 05/13/19 08:33 Allergies: Coded Allergies: No Known Allergies (Unverified , 07/16/17) ROS Limited/Unobtainable: Yes Subjective 83 YO F admitted with fever. Now bilateral pneumonia and sepsis. Also anemia and pancreatitis. Cover For Int Med-Dr De La Cruz Objective Last Vital Signs Date Time Temp Pulse Resp B/P (MAP) Pulse Ox O2 Delivery O2 Flow Rate FiO2 05/13/19 12:00 99.1 82 18 124/63 (83) 97 05/13/19 10:00 Room Air 21 Laboratory Tests Test 05/13/19 05:45 05/13/19 08:40 05/13/19 11:25 Stool Occult Blood Pending Pending White Blood Count 5.9 K/UL (4.8-10.8) Red Blood Count 3.82 M/UL (4.20-5.40) L Hemoglobin 10.6 G/DL (12.0-16.0) L Hematocrit 35.7 % (37.0-47.0) L Mean Corpuscular Volume 94 FL (80-99) Mean Corpuscular Hemoglobin 27.8 PG (27.0-31.0) Mean Corpuscular Hemoglobin Concent 29.7 G/DL (32.0-36.0) L Red Cell Distribution Width 20.2 % (11.6-14.8) H Platelet Count 281 K/UL (150-450) Mean Platelet Volume 6.1 FL (6.5-10.1) L Neutrophils (%) (Auto) 77.9 % (45.0-75.0) H Lymphocytes (%) (Auto) 15.3 % (20.0-45.0) L Monocytes (%) (Auto) 3.5 % (1.0-10.0) Eosinophils (%) (Auto) 2.7 % (0.0-3.0) Basophils (%) (Auto) 0.6 % (0.0-2.0) Sodium Level 138 MMOL/L (136-145) Potassium Level 4.1 MMOL/L (3.5-5.1) Chloride Level 99 MMOL/L (98-107) Carbon Dioxide Level 26 MMOL/L (21-32) Anion Gap 13 mmol/L (5-15) Blood Urea Nitrogen 45 mg/dL (7-18) H Creatinine 7.0 MG/DL (0.55-1.30) H Estimat Glomerular Filtration Rate mL/min (>60) Glucose Level 88 MG/DL (74-106) Calcium Level 10.3 MG/DL (8.5-10.1) H Iron Level 34 ug/dL (50-175) L Total Iron Binding Capacity 121 ug/dL (250-450) L Percent Iron Saturation 28 % (15-50) Unsaturated Iron Binding 87 ug/dL (112-346) L Intake and Output 05/12/19 05/13/19 19:00 07:00 Intake Total 380 ml 450 ml Output Total 0 ml Balance 380 ml 450 ml Intake Free Water 90 ml IV Total 200 ml Tube Feeding 180 ml 360 ml Output Urine Total 0 ml Stool Total 0 ml # Bowel Movements 1 Objective PHYSICAL EXAMINATION: GENERAL: The patient is a well-developed and well-nourished slightly obese female, in no apparent distress. HEENT: Eyes, pupils are equal and responsive to light and accommodation. Extraocular movements are intact. NECK: Supple without lymphadenopathy. CHEST: Decreased breath sounds with crackles at bilateral bases. Otherwise, without wheezes bilaterally. ABDOMINAL: Soft, nontender, and nondistended. Positive bowel sounds. No evidence of hepatosplenomegaly. Currently, no rebound or guarding noted. EXTREMITIES: Negative for clubbing, cyanosis, or edema. There is bilateral [id number]-[id number] amputation. NEUROLOGIC: Cranial nerves II through XII are grossly intact without focal deficits. Assessment/Plan Assessment/Plan ASSESSMENT: This is an 83-year-old female. 1. Fever. 2. Bibasilar pneumonia. 3. Diabetes type 2. 4. Hypercholesterolemia. 5. Hypertension. 6. End-stage renal disease. 7. Gout. 8. Cerebrovascular disease, status post cerebrovascular accident. 9. Peripheral vascular disease. 10. Deep venous thrombosis. 11. Bilateral nvlys-pyk-pqto amputation. 12. Sepsis-Staph species 13. Anemia TREATMENT: 1. Fever/bibasilar pneumonia. Antibiotics=amikacin and vancomycin. An Infectious Disease consultation has been obtained with Dr Cardenas. We will follow recommendations of Infectious Disease. A Pulmonary consultation has been obtained with Dr. Rosemary Lui. 2. Diabetes type 2. The patient has been placed on a NovoLog sliding scale. 3. Hypercholesterolemia. Continue atorvastatin as above. 4. Hypertension. Continue hydralazine as above. 5. End-stage renal disease, on hemodialysis every Wednesday, , and Wednesday. A Nephrology consultation has been obtained with Dr. Rich. 6. Gout. Continue allopurinol as above. 7. Cerebrovascular disease. The patient is status post CVA. 8. Peripheral vascular disease. The patient is status post bilateral [id number]-[id number]-qpmv amputation. 9. History of deep venous thrombosis. 10. Await blood culture results 11. Anemia workup in progress Barrett Cooney MD May 13, 2019 12:51
[2019-05-13 16:00] VITALS: BP 121/81
[2019-05-13] MEDS ORDERED: D5 1/2NS 1000ml IV ONE (16:32)
--- NOTE | 2019-05-13 16:52 | Surgery Progress Note ---
Surgery Progress Note Objective Last 24 Hour Vital Signs Date Time Temp Pulse Resp B/P (MAP) Pulse Ox O2 Delivery O2 Flow Rate FiO2 05/13/19 16:00 99.1 98 18 121/81 (94) 99 05/13/19 12:00 99.1 82 18 124/63 (83) 97 05/13/19 10:00 82 18 98 Room Air 21 05/13/19 09:27 Room Air 05/13/19 07:56 98.8 81 18 127/58 (81) 97 05/13/19 04:00 99.2 79 17 127/57 (80) 98 05/13/19 00:00 98.2 83 17 123/52 (75) 97 05/12/19 22:52 78 18 95 Room Air 21 05/12/19 21:00 Room Air 05/12/19 20:00 99.6 79 17 126/58 (80) 97 I&O Intake and Output 05/12/19 05/13/19 18:59 06:59 Intake Total 400 ml 420 ml Output Total 0 ml Balance 400 ml 420 ml Intake Free Water 60 ml IV Total 250 ml Tube Feeding 150 ml 360 ml Output Urine Total 0 ml Stool Total 0 ml # Bowel Movements 1 Dressing: dry Wound: clean Cardiovascular: RSR Respiratory: clear Abdomen: soft, non-tender, present bowel sounds, non-distended Extremities: no cyanosis Laboratory Tests Test 05/13/19 05:45 05/13/19 08:40 05/13/19 11:25 Stool Occult Blood Negative (NEGATIVE) Negative (NEGATIVE) White Blood Count 5.9 K/UL (4.8-10.8) Red Blood Count 3.82 M/UL (4.20-5.40) L Hemoglobin 10.6 G/DL (12.0-16.0) L Hematocrit 35.7 % (37.0-47.0) L Mean Corpuscular Volume 94 FL (80-99) Mean Corpuscular Hemoglobin 27.8 PG (27.0-31.0) Mean Corpuscular Hemoglobin Concent 29.7 G/DL (32.0-36.0) L Red Cell Distribution Width 20.2 % (11.6-14.8) H Platelet Count 281 K/UL (150-450) Mean Platelet Volume 6.1 FL (6.5-10.1) L Neutrophils (%) (Auto) 77.9 % (45.0-75.0) H Lymphocytes (%) (Auto) 15.3 % (20.0-45.0) L Monocytes (%) (Auto) 3.5 % (1.0-10.0) Eosinophils (%) (Auto) 2.7 % (0.0-3.0) Basophils (%) (Auto) 0.6 % (0.0-2.0) Sodium Level 138 MMOL/L (136-145) Potassium Level 4.1 MMOL/L (3.5-5.1) Chloride Level 99 MMOL/L (98-107) Carbon Dioxide Level 26 MMOL/L (21-32) Anion Gap 13 mmol/L (5-15) Blood Urea Nitrogen 45 mg/dL (7-18) H Creatinine 7.0 MG/DL (0.55-1.30) H Estimat Glomerular Filtration Rate mL/min (>60) Glucose Level 88 MG/DL (74-106) Calcium Level 10.3 MG/DL (8.5-10.1) H Iron Level 34 ug/dL (50-175) L Total Iron Binding Capacity 121 ug/dL (250-450) L Percent Iron Saturation 28 % (15-50) Unsaturated Iron Binding 87 ug/dL (112-346) L Hepatitis B Surface Antigen Pending Plan Problems: (1) HTN (hypertension) (2) DM (diabetes mellitus) (3) Sepsis Assessment & Plan: DAILY ESTIMATED NEEDS: Needs based on ESRD/HD, wound/ 56kg adj for BL AKA 30-35 kcals/kg 0779-7515 total kcals 1.25-1.8 g protein/kg 70-101 g total protein Fluid per MD, on HD NUTRITION DIAGNOSIS: (1) Increased kcal/pro intake needs R/T renal dysfunction, wound healing as evidenced by ESRD dx, on HD. w/ sacral wound, pending eval. (2) Altered nutrition related lab values R/T clinical status as evidenced by elev Lipase >2000. ENTERAL NUTRITION RECOMMENDATIONS: Nepro @ 40ml/hr x 24 hrs to provide 960ml, 1728kcal, 78g pro, 698ml free water * As medically able, rec to start NEPRO @20ml/hr for 6 hrs * Increase 10ml/hr q4-6 hrs to goal * HOB over 30 degrees/ water flush per MD ----- ADDITIONAL RECOMMENDATIONS: * Calibrated dry wt post HD * Brian 1pkt BID for wound healing via GT w/ TF order * Add NEPHROVITE x1 daily * F/up w/ WC eval (4) Pancreatitis Assessment & Plan: on admission with leukocytosis and pancreatitis asymptomatic clinically now trending down US ordered will monitor trend labs thank you (5) Electrolyte imbalance (6) GI bleed (7) Fever (8) Anemia (9) ESRD (end stage renal disease) on dialysis (10) 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 Small amt seropurulent exudate noted.(L )20cm x (W)19cm.. L sacrum extending into L lower buttocks erythematous ,macerated with scattered areas of yellow slough through out base of wound.Wound is malodorous. Small amt seropurulent exudate noted (L)14cm x (W)8cm.Periwound noted to have darker skin tone that is indurated. L ischium darker than is normal skin tone and indurated with scattered open wound exuding small amt serous exudate. (L)4cm x (W)8.5cm. Incontinence associated dermatitis noted to perineum and medial aspects of both upper thigh.Skin is erythematous and denuded. Tx.Plan: Cleanse R ,L buttocks and L Ischium with Saline. Apply Therahoney to areas of Slough. Apply Triad paste to borders Cover with Optifoams .Change Daily and prn. Apply Triad Paste to Bilat groin and medial aspects of both upper thighs with each incontinence care. APM/TIAGO Mattress overlay. Reposition at least every 2hours or as tolerated. Willian Machado May 13, 2019 16:52
--- NOTE | 2019-05-13 17:50 | NUR ---
NURSE NOTES: pt receiving HD currently and tolerating well. will continue to monitor
--- NOTE | 2019-05-13 19:17 | Cardiology Report ---
APPROVED REPORT EKG Measurement Heart [id number] Normal sinus rhythm Inferior infarct, age undetermined Prolonged QT Abnormal ECG
--- NOTE | 2019-05-13 19:28 | NUR ---
HAND-OFF: Report given to CATA Reese.
--- NOTE | 2019-05-13 19:40 | NUR ---
NURSE NOTES: Right upper Arm AV shunt intact, dialysis nurse at bedside. no respiratory distress noted. breathing regular and unlabored. Tolerating well on GT with no residual, running continuous feeding at 35 cc/hr. HOB elevated for aspiration precaution. bed in lowest position. call light within reach at all time.
[2019-05-13 20:00] VITALS: BP 120/53
[2019-05-14] VITALS: BP 132/65
[2019-05-14 04:00] VITALS: BP 141/61
--- NOTE | 2019-05-14 07:05 | NUR ---
HAND-OFF: Report given to CATA Mcdaniel.
--- NOTE | 2019-05-14 07:30 | NUR ---
NURSE NOTES: Patient is in bed asleep. Stable. No facial grimacing or signs of discomfort noted. All safety measures provided. Patient in bed with call light within reach. Will continue to monitor.
[2019-05-14 08:00] VITALS: BP 138/66
--- NOTE | 2019-05-14 08:12 | General Progress Note ---
Assessment/Plan Problem List: (1) G tube feedings ICD Codes: Z93.1 - Gastrostomy status SNOMED: 482839999, 032248119, 652679423 (2) HTN (hypertension) ICD Codes: I10 - Essential (primary) hypertension SNOMED: 89306721 (3) DM (diabetes mellitus) ICD Codes: E11.9 - Type 2 diabetes mellitus without complications SNOMED: 52536474 (4) Pancreatitis ICD Codes: K85.90 - Acute pancreatitis without necrosis or infection, unspecified SNOMED: 70929487 (5) Anemia ICD Codes: D64.9 - Anemia, unspecified SNOMED: 171764722 (6) ESRD (end stage renal disease) on dialysis ICD Codes: N18.6 - End stage renal disease; Z99.2 - Dependence on renal dialysis SNOMED: 652992803 Assessment/Plan: fu stool ob neg x2 hold EGD and colonoscopy for now fu H&H GTF 35 GT flush Subjective ROS Limited/Unobtainable: No Allergies: Coded Allergies: No Known Allergies (Unverified , 07/16/17) Objective Last 24 Hour Vital Signs Date Time Temp Pulse Resp B/P (MAP) Pulse Ox O2 Delivery O2 Flow Rate FiO2 05/14/19 04:00 97.6 80 18 141/61 (87) 98 05/14/19 00:00 98.5 76 18 132/65 (87) 98 05/13/19 21:43 Room Air 05/13/19 20:12 79 18 97 Room Air 21 05/13/19 20:00 98.4 82 18 120/53 (75) 98 05/13/19 16:00 99.1 98 18 121/81 (94) 99 05/13/19 12:00 99.1 82 18 124/63 (83) 97 05/13/19 10:00 82 18 98 Room Air 21 05/13/19 09:27 Room Air Intake and Output 05/13/19 05/14/19 19:00 07:00 Intake Total 495 ml 480 ml Balance 495 ml 480 ml Intake Free Water 90 ml 60 ml Tube Feeding 405 ml 420 ml # Bowel Movements 2 1 Laboratory Tests 05/13/19 08:40: Stool Occult Blood Negative 05/13/19 11:25: White Blood Count 5.9, Red Blood Count 3.82L, Hemoglobin 10.6L, Hematocrit 35.7L , Mean Corpuscular Volume 94, Mean Corpuscular Hemoglobin 27.8, Mean Corpuscular Hemoglobin Concent 29.7L, Red Cell Distribution Width 20.2H, Platelet Count 281, Mean Platelet Volume 6.1L, Neutrophils (%) (Auto) 77.9H, Lymphocytes (%) (Auto) 15.3L, Monocytes (%) (Auto) 3.5, Eosinophils (%) (Auto) 2.7, Basophils (%) (Auto) 0.6, Sodium Level 138, Potassium Level 4.1, Chloride Level 99, Carbon Dioxide Level 26, Anion Gap 13, Blood Urea Nitrogen 45H, Creatinine 7.0H, Estimat Glomerular Filtration Rate , Glucose Level 88, Calcium Level 10.3H, Iron Level 34L, Total Iron Binding Capacity 121L, Percent Iron Saturation 28, Unsaturated Iron Binding 87L, Hepatitis B Surface Antigen [ Pending] Height (Feet): 4 Height (Inches): 0.00 Weight (Pounds): 170 General Appearance: no apparent distress EENT: normal ENT inspection Neck: supple Cardiovascular: normal rate Respiratory/Chest: decreased breath sounds Abdomen: normal bowel sounds, non tender, soft Extremities: non-tender Ezequiel Perales MD May 14, 2019 08:12
[2019-05-14 08:15] LABS: BASOPHILS % (AUTO) 0.7 % (0.0-2.0); EOSINOPHILS % (AUTO) 5.4 % (0.0-3.0); HEMATOCRIT 31.9 % (37.0-47.0); HEMOGLOBIN 9.6 G/DL (12.0-16.0); LYMPHOCYTES % (AUTO) 19.9 % (20.0-45.0); MEAN CORPUSCULAR VOLUME 94 FL (80-99); MONOCYTES % (AUTO) 5.2 % (1.0-10.0); NEUTROPHILS % (AUTO) 68.8 % (45.0-75.0); PLATELET COUNT 232 K/UL (150-450); RED BLOOD COUNT 3.41 M/UL (4.20-5.40); RED CELL DISTRIBUTION WIDTH 20.4 % (11.6-14.8); WHITE BLOOD COUNT 4.6 K/UL (4.8-10.8)
[2019-05-14] MEDS: Heparin 5000 units/ml inj SUBQ SCH ×2 (08:42→20:58)
[2019-05-14 08:43] LABS: ALANINE AMINOTRANSFERASE 58 U/L (12-78); ALBUMIN 2.2 G/DL (3.4-5.0); ALBUMIN/GLOBULIN RATIO 0.4 (1.0-2.7); ALKALINE PHOSPHATASE 139 U/L (46-116); AMYLASE 189 U/L (25-115); ANION GAP 10 mmol/L (5-15); ASPARTATE AMINO TRANSFERASE 43 U/L (15-37); BILIRUBIN,TOTAL 0.3 MG/DL (0.2-1.0); BLOOD UREA NITROGEN 29 mg/dL (7-18); CARBON DIOXIDE 29 MMOL/L (21-32); CHLORIDE 104 MMOL/L (98-107); CREATININE 5.4 MG/DL (0.55-1.30); POTASSIUM 3.2 MMOL/L (3.5-5.1); SODIUM 143 MMOL/L (136-145)
[2019-05-14] MEDS: Zinc Oxide Oint 2oz TOPIC SCH ×2 (08:46→17:25)
[2019-05-14 09:04] LABS: PHOSPHORUS 5.5 MG/DL (2.5-4.9)
--- NOTE | 2019-05-14 10:03 | Infectious Diseases Prog Note ---
Assessment/Plan Assessment/Plan Stephani Mccauley is a 83 yo female with PMHx DM, ESRD on HD, HTN, Gout, HLD, CVA, and DVT who is not verbal and was sent to the ED on 05/10/19 for B/L PNA but was found to have pancreatitis on evaluation. Pancreatis Lipase 739 No sign of active infection Leukocytosis resovled Afebrile Positive blood Cx Most likely a containment Blood Cx 05/10/19 one set only GPC CXR showed No definite acute process and Evidence old granulomatous disease. Lipase was elevated at 739. He is currently off abx. DM ESRD on HD HTN Gout HLD CVA DVT PLAN - Monitor off abx - 05/14/19 SP Vancomycin #4 - 05/12/19 Amikacin #2 -f/u repeat blood Cx - Still pending will discuss with nurse - Monitor CBC and Temps Thank you for this consult. We will continue to follow the patient with you. Subjective Allergies: Coded Allergies: No Known Allergies (Unverified , 07/16/17) Subjective Afebrile No Leukocytosis Objective Vital Signs Last 24 Hour Vital Signs Date Time Temp Pulse Resp B/P (MAP) Pulse Ox O2 Delivery O2 Flow Rate FiO2 05/14/19 04:00 97.6 80 18 141/61 (87) 98 05/14/19 00:00 98.5 76 18 132/65 (87) 98 05/13/19 21:43 Room Air 05/13/19 20:12 79 18 97 Room Air 21 05/13/19 20:00 98.4 82 18 120/53 (75) 98 05/13/19 16:00 99.1 98 18 121/81 (94) 99 05/13/19 12:00 99.1 82 18 124/63 (83) 97 Height (Feet): 4 Height (Inches): 0.00 Weight (Pounds): 170 Objective Gen: NAD on RA HEENT: NCAT, MMM, PERRL LUNGS: Coarse B/L CARDS: RRR, S1, S2 ABD: Soft, NT, ND, NEURO: Awake, Not following commands S Laboratory Tests Test 05/13/19 11:25 05/14/19 06:00 White Blood Count 5.9 K/UL (4.8-10.8) 4.6 K/UL (4.8-10.8) L Red Blood Count 3.82 M/UL (4.20-5.40) L 3.41 M/UL (4.20-5.40) L Hemoglobin 10.6 G/DL (12.0-16.0) L 9.6 G/DL (12.0-16.0) L Hematocrit 35.7 % (37.0-47.0) L 31.9 % (37.0-47.0) L Mean Corpuscular Volume 94 FL (80-99) 94 FL (80-99) Mean Corpuscular Hemoglobin 27.8 PG (27.0-31.0) 28.3 PG (27.0-31.0) Mean Corpuscular Hemoglobin Concent 29.7 G/DL (32.0-36.0) L 30.2 G/DL (32.0-36.0) L Red Cell Distribution Width 20.2 % (11.6-14.8) H 20.4 % (11.6-14.8) H Platelet Count 281 K/UL (150-450) 232 K/UL (150-450) Mean Platelet Volume 6.1 FL (6.5-10.1) L 6.1 FL (6.5-10.1) L Neutrophils (%) (Auto) 77.9 % (45.0-75.0) H 68.8 % (45.0-75.0) Lymphocytes (%) (Auto) 15.3 % (20.0-45.0) L 19.9 % (20.0-45.0) L Monocytes (%) (Auto) 3.5 % (1.0-10.0) 5.2 % (1.0-10.0) Eosinophils (%) (Auto) 2.7 % (0.0-3.0) 5.4 % (0.0-3.0) H Basophils (%) (Auto) 0.6 % (0.0-2.0) 0.7 % (0.0-2.0) Sodium Level 138 MMOL/L (136-145) 143 MMOL/L (136-145) Potassium Level 4.1 MMOL/L (3.5-5.1) 3.2 MMOL/L (3.5-5.1) L Chloride Level 99 MMOL/L (98-107) 104 MMOL/L (98-107) Carbon Dioxide Level 26 MMOL/L (21-32) 29 MMOL/L (21-32) Anion Gap 13 mmol/L (5-15) 10 mmol/L (5-15) Blood Urea Nitrogen 45 mg/dL (7-18) H 29 mg/dL (7-18) H Creatinine 7.0 MG/DL (0.55-1.30) H 5.4 MG/DL (0.55-1.30) H Estimat Glomerular Filtration Rate mL/min (>60) mL/min (>60) Glucose Level 88 MG/DL (74-106) 99 MG/DL (74-106) Calcium Level 10.3 MG/DL (8.5-10.1) H 10.0 MG/DL (8.5-10.1) Iron Level 34 ug/dL (50-175) L Total Iron Binding Capacity 121 ug/dL (250-450) L Percent Iron Saturation 28 % (15-50) Unsaturated Iron Binding 87 ug/dL (112-346) L Hepatitis B Surface Antigen Pending Phosphorus Level 5.5 MG/DL (2.5-4.9) H Magnesium Level 2.4 MG/DL (1.8-2.4) Total Bilirubin 0.3 MG/DL (0.2-1.0) Aspartate Amino Transf (AST/SGOT) 43 U/L (15-37) H Alanine Aminotransferase (ALT/SGPT) 58 U/L (12-78) Alkaline Phosphatase 139 U/L (46-116) H Total Protein 7.4 G/DL (6.4-8.2) Albumin 2.2 G/DL (3.4-5.0) L Globulin 5.2 g/dL Albumin/Globulin Ratio 0.4 (1.0-2.7) L Amylase Level 189 U/L (25-115) H Lipase 814 U/L (73-393) H Current Medications Medications (Trade) Dose Ordered Sig/Selene Route PRN Reason Start Time Stop Time Status Last Admin Dose Admin Acetaminophen (Tylenol) 650 mg Q4H PRN ORAL Fever (temp>100.5F) 05/10/19 12:00 06/09/19 11:59 Albuterol/ Ipratropium (Albuterol/ Ipratropium) 3 ml Q4H PRN HHN Shortness of Breath 05/10/19 12:00 05/15/19 11:59 Dextrose (Dextrose 50%) 25 ml Q30M PRN IV Hypoglycemia 05/10/19 12:00 06/09/19 11:59 Dextrose (Dextrose 50%) 50 ml Q30M PRN IV Hypoglycemia 05/10/19 12:00 06/09/19 11:59 Heparin Sodium (Porcine) (Heparin 5000 units/ml) 5,000 units EVERY 12 HOURS SUBQ 05/10/19 21:00 06/09/19 20:59 05/14/19 08:42 Hydralazine HCl (Apresoline) 25 mg Q4H PRN GT For High Blood Pressure 05/12/19 12:01 06/09/19 12:00 Ondansetron HCl (Zofran) 4 mg Q6H PRN IVP Nausea & Vomiting 05/10/19 12:00 06/09/19 11:59 Polyethylene Glycol (Miralax) 17 gm DAILYPRN PRN ORAL Constipation 05/10/19 12:00 06/09/19 11:59 Temazepam (Restoril) 15 mg HSPRN PRN ORAL Insomnia 05/10/19 12:00 05/17/19 11:59 Vancomycin HCl (Vanco rx to dose) 1 ea DAILY PRN MISC Per rx protocol 05/10/19 12:00 06/09/19 11:59 Zinc Oxide (Zinc Oxide) 1 applic BID TOPIC 05/12/19 18:00 06/11/19 13:44 05/14/19 08:46 Matt Cardenas MD May 14, 2019 10:03
--- NOTE | 2019-05-14 11:52 | Nephrology Progress Note ---
Assessment/Plan Problem List: (1) ESRD (end stage renal disease) on dialysis (2) Pancreatitis (3) Anemia due to chronic kidney disease Assessment (1) Sepsis (2) HTN (hypertension) (3) DM (diabetes mellitus) (4) ESRD (end stage renal disease) on dialysis (5) Anemia of CKD (6) Lipase over 1999 Plan HD 05/11 next 05/13 next 05/15 adjust BP meds Anemia mccarthy ? GI eval per orders Subjective ROS Limited/Unobtainable: No Constitutional: Reports: malaise Objective Objective Last 24 Hour Vital Signs Date Time Temp Pulse Resp B/P (MAP) Pulse Ox O2 Delivery O2 Flow Rate FiO2 05/14/19 09:00 Room Air 05/14/19 08:00 97.8 83 18 138/66 (90) 99 05/14/19 04:00 97.6 80 18 141/61 (87) 98 05/14/19 00:00 98.5 76 18 132/65 (87) 98 05/13/19 21:43 Room Air 05/13/19 20:12 79 18 97 Room Air 21 05/13/19 20:00 98.4 82 18 120/53 (75) 98 05/13/19 16:00 99.1 98 18 121/81 (94) 99 05/13/19 12:00 99.1 82 18 124/63 (83) 97 Intake and Output 05/13/19 05/14/19 19:00 07:00 Intake Total 495 ml 480 ml Balance 495 ml 480 ml Intake Free Water 90 ml 60 ml Tube Feeding 405 ml 420 ml # Bowel Movements 2 1 Laboratory Tests 05/14/19 06:00: White Blood Count 4.6L, Red Blood Count 3.41L, Hemoglobin 9.6L, Hematocrit 31.9L , Mean Corpuscular Volume 94, Mean Corpuscular Hemoglobin 28.3, Mean Corpuscular Hemoglobin Concent 30.2L, Red Cell Distribution Width 20.4H, Platelet Count 232, Mean Platelet Volume 6.1L, Neutrophils (%) (Auto) 68.8, Lymphocytes (%) (Auto) 19.9L, Monocytes (%) (Auto) 5.2, Eosinophils (%) (Auto) 5.4H, Basophils (%) (Auto) 0.7, Sodium Level 143, Potassium Level 3.2L, Chloride Level 104, Carbon Dioxide Level 29, Anion Gap 10, Blood Urea Nitrogen 29H, Creatinine 5.4H, Estimat Glomerular Filtration Rate , Glucose Level 99, Calcium Level 10.0, Phosphorus Level 5.5H, Magnesium Level 2.4, Total Bilirubin 0.3, Aspartate Amino Transf (AST/SGOT) 43H, Alanine Aminotransferase (ALT/SGPT) 58, Alkaline Phosphatase 139H, Total Protein 7.4, Albumin 2.2L, Globulin 5.2, Albumin/Globulin Ratio 0.4L, Amylase Level 189H, Lipase 814H Height (Feet): 4 Height (Inches): 0.00 Weight (Pounds): 170 General Appearance: no apparent distress Cardiovascular: normal rate Respiratory/Chest: lungs clear Abdomen: soft Objective no change Matthew Rich MD May 14, 2019 11:52
[2019-05-14 12:00] VITALS: BP 144/58
--- NOTE | 2019-05-14 12:02 | NUR ---
NURSE NOTES: called [facility] spoke w huyen, re hd notification leeann
--- NOTE | 2019-05-14 13:29 | Surgery Progress Note ---
Surgery Progress Note Subjective Additional Comments Patient seen and examined at bedside. No acute events. No nausea vomiting fever chills. Labs stable. Exam unchanged. Dressings Lipase elevated today Objective Last 24 Hour Vital Signs Date Time Temp Pulse Resp B/P (MAP) Pulse Ox O2 Delivery O2 Flow Rate FiO2 05/14/19 12:00 97.9 78 18 144/58 (86) 99 05/14/19 09:00 Room Air 05/14/19 08:00 97.8 83 18 138/66 (90) 99 05/14/19 04:00 97.6 80 18 141/61 (87) 98 05/14/19 00:00 98.5 76 18 132/65 (87) 98 05/13/19 21:43 Room Air 05/13/19 20:12 79 18 97 Room Air 21 05/13/19 20:00 98.4 82 18 120/53 (75) 98 05/13/19 16:00 99.1 98 18 121/81 (94) 99 I&O Intake and Output 05/13/19 05/14/19 19:00 07:00 Intake Total 495 ml 480 ml Balance 495 ml 480 ml Intake Free Water 90 ml 60 ml Tube Feeding 405 ml 420 ml # Bowel Movements 2 1 Dressing: dry Wound: clean Cardiovascular: RSR Respiratory: clear Abdomen: soft, present bowel sounds, non-distended Extremities: no cyanosis, other Laboratory Tests Test 05/14/19 06:00 White Blood Count 4.6 K/UL (4.8-10.8) L Red Blood Count 3.41 M/UL (4.20-5.40) L Hemoglobin 9.6 G/DL (12.0-16.0) L Hematocrit 31.9 % (37.0-47.0) L Mean Corpuscular Volume 94 FL (80-99) Mean Corpuscular Hemoglobin 28.3 PG (27.0-31.0) Mean Corpuscular Hemoglobin Concent 30.2 G/DL (32.0-36.0) L Red Cell Distribution Width 20.4 % (11.6-14.8) H Platelet Count 232 K/UL (150-450) Mean Platelet Volume 6.1 FL (6.5-10.1) L Neutrophils (%) (Auto) 68.8 % (45.0-75.0) Lymphocytes (%) (Auto) 19.9 % (20.0-45.0) L Monocytes (%) (Auto) 5.2 % (1.0-10.0) Eosinophils (%) (Auto) 5.4 % (0.0-3.0) H Basophils (%) (Auto) 0.7 % (0.0-2.0) Sodium Level 143 MMOL/L (136-145) Potassium Level 3.2 MMOL/L (3.5-5.1) L Chloride Level 104 MMOL/L (98-107) Carbon Dioxide Level 29 MMOL/L (21-32) Anion Gap 10 mmol/L (5-15) Blood Urea Nitrogen 29 mg/dL (7-18) H Creatinine 5.4 MG/DL (0.55-1.30) H Estimat Glomerular Filtration Rate mL/min (>60) Glucose Level 99 MG/DL (74-106) Calcium Level 10.0 MG/DL (8.5-10.1) Phosphorus Level 5.5 MG/DL (2.5-4.9) H Magnesium Level 2.4 MG/DL (1.8-2.4) Total Bilirubin 0.3 MG/DL (0.2-1.0) Aspartate Amino Transf (AST/SGOT) 43 U/L (15-37) H Alanine Aminotransferase (ALT/SGPT) 58 U/L (12-78) Alkaline Phosphatase 139 U/L (46-116) H Total Protein 7.4 G/DL (6.4-8.2) Albumin 2.2 G/DL (3.4-5.0) L Globulin 5.2 g/dL Albumin/Globulin Ratio 0.4 (1.0-2.7) L Amylase Level 189 U/L (25-115) H Lipase 814 U/L (73-393) H Plan Problems: (1) HTN (hypertension) (2) DM (diabetes mellitus) (3) Sepsis Assessment & Plan: DAILY ESTIMATED NEEDS: Needs based on ESRD/HD, wound/ 56kg adj for BL AKA 30-35 kcals/kg [id number] total kcals 1.25-1.8 g protein/kg 70-101 g total protein Fluid per MD, on HD NUTRITION DIAGNOSIS: (1) Increased kcal/pro intake needs R/T renal dysfunction, wound healing as evidenced by ESRD dx, on HD. w/ sacral wound, pending eval. (2) Altered nutrition related lab values R/T clinical status as evidenced by elev Lipase >2000. ENTERAL NUTRITION RECOMMENDATIONS: Nepro @ 40ml/hr x 24 hrs to provide 960ml, 1728kcal, 78g pro, 698ml free water * As medically able, rec to start NEPRO @20ml/hr for 6 hrs * Increase 10ml/hr q4-6 hrs to goal * HOB over 30 degrees/ water flush per MD ----- ADDITIONAL RECOMMENDATIONS: * Calibrated dry wt post HD * Brian 1pkt BID for wound healing via GT w/ TF order * Add NEPHROVITE x1 daily * F/up w/ WC eval (4) Pancreatitis Assessment & Plan: on admission with leukocytosis and pancreatitis asymptomatic clinically Continue to trend labs US ordered pending will monitor thank you (5) Electrolyte imbalance (6) GI bleed (7) Fever (8) Anemia (9) ESRD (end stage renal disease) on dialysis (10) 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 Small amt seropurulent exudate noted.(L )20cm x (W)19cm.. L sacrum extending into L lower buttocks erythematous ,macerated with scattered areas of yellow slough through out base of wound.Wound is malodorous. Small amt seropurulent exudate noted (L)14cm x (W)8cm.Periwound noted to have darker skin tone that is indurated. L ischium darker than is normal skin tone and indurated with scattered open wound exuding small amt serous exudate. (L)4cm x (W)8.5cm. Incontinence associated dermatitis noted to perineum and medial aspects of both upper thigh.Skin is erythematous and denuded. Tx.Plan: Cleanse R ,L buttocks and L Ischium with Saline. Apply Therahoney to areas of Slough. Apply Triad paste to borders Cover with Optifoams .Change Daily and prn. Apply Triad Paste to Bilat groin and medial aspects of both upper thighs with each incontinence care. APM/TIAGO Mattress overlay. Reposition at least every 2hours or as tolerated. Willian Machado May 14, 2019 13:29
--- NOTE | 2019-05-14 14:55 | Pulmonology Progress Note ---
Assessment/Plan Problems: (1) Sepsis (2) HTN (hypertension) (3) DM (diabetes mellitus) (4) ESRD (end stage renal disease) on dialysis Assessment/Plan OB penidng improving WBC lowe check cultures, BC is positive for gram positive Cocci iv abx renal evaluation symptomatic treatment gtube feeding dvt prophylaxis. Subjective ROS Limited/Unobtainable: No Constitutional: Reports: no symptoms HEENT: Repors: no symptoms Allergies: Coded Allergies: No Known Allergies (Unverified , 07/16/17) Objective Last 24 Hour Vital Signs Date Time Temp Pulse Resp B/P (MAP) Pulse Ox O2 Delivery O2 Flow Rate FiO2 05/14/19 12:00 97.9 78 18 144/58 (86) 99 05/14/19 09:00 Room Air 05/14/19 08:00 97.8 83 18 138/66 (90) 99 05/14/19 04:00 97.6 80 18 141/61 (87) 98 05/14/19 00:00 98.5 76 18 132/65 (87) 98 05/13/19 21:43 Room Air 05/13/19 20:12 79 18 97 Room Air 21 05/13/19 20:00 98.4 82 18 120/53 (75) 98 05/13/19 16:00 99.1 98 18 121/81 (94) 99 Intake and Output 05/13/19 05/14/19 19:00 07:00 Intake Total 495 ml 480 ml Balance 495 ml 480 ml Intake Free Water 90 ml 60 ml Tube Feeding 405 ml 420 ml # Bowel Movements 2 1 Objective General Appearance: WD/WN Respiratory/Chest: chest wall non-tender, lungs clear Breasts: no masses Cardiovascular: normal peripheral pulses, normal rate Abdomen: normal bowel sounds Genitourinary: normal external genitalia Skin: no rash above knee amputation Laboratory Tests 05/14/19 06:00: White Blood Count 4.6L, Red Blood Count 3.41L, Hemoglobin 9.6L, Hematocrit 31.9L , Mean Corpuscular Volume 94, Mean Corpuscular Hemoglobin 28.3, Mean Corpuscular Hemoglobin Concent 30.2L, Red Cell Distribution Width 20.4H, Platelet Count 232, Mean Platelet Volume 6.1L, Neutrophils (%) (Auto) 68.8, Lymphocytes (%) (Auto) 19.9L, Monocytes (%) (Auto) 5.2, Eosinophils (%) (Auto) 5.4H, Basophils (%) (Auto) 0.7, Sodium Level 143, Potassium Level 3.2L, Chloride Level 104, Carbon Dioxide Level 29, Anion Gap 10, Blood Urea Nitrogen 29H, Creatinine 5.4H, Estimat Glomerular Filtration Rate , Glucose Level 99, Calcium Level 10.0, Phosphorus Level 5.5H, Magnesium Level 2.4, Total Bilirubin 0.3, Aspartate Amino Transf (AST/SGOT) 43H, Alanine Aminotransferase (ALT/SGPT) 58, Alkaline Phosphatase 139H, Total Protein 7.4, Albumin 2.2L, Globulin 5.2, Albumin/Globulin Ratio 0.4L, Amylase Level 189H, Lipase 814H Current Medications Medications (Trade) Dose Ordered Sig/Selene Route PRN Reason Start Time Stop Time Status Last Admin Dose Admin Acetaminophen (Tylenol) 650 mg Q4H PRN ORAL Fever (temp>100.5F) 05/10/19 12:00 06/09/19 11:59 Albuterol/ Ipratropium (Albuterol/ Ipratropium) 3 ml Q4H PRN HHN Shortness of Breath 05/10/19 12:00 05/15/19 11:59 Dextrose (Dextrose 50%) 25 ml Q30M PRN IV Hypoglycemia 05/10/19 12:00 06/09/19 11:59 Dextrose (Dextrose 50%) 50 ml Q30M PRN IV Hypoglycemia 05/10/19 12:00 06/09/19 11:59 Heparin Sodium (Porcine) (Heparin 5000 units/ml) 5,000 units EVERY 12 HOURS SUBQ 05/10/19 21:00 06/09/19 20:59 05/14/19 08:42 Hydralazine HCl (Apresoline) 25 mg Q4H PRN GT For High Blood Pressure 05/12/19 12:01 06/09/19 12:00 Ondansetron HCl (Zofran) 4 mg Q6H PRN IVP Nausea & Vomiting 05/10/19 12:00 06/09/19 11:59 Polyethylene Glycol (Miralax) 17 gm DAILYPRN PRN ORAL Constipation 05/10/19 12:00 06/09/19 11:59 Temazepam (Restoril) 15 mg HSPRN PRN ORAL Insomnia 05/10/19 12:00 05/17/19 11:59 Zinc Oxide (Zinc Oxide) 1 applic BID TOPIC 05/12/19 18:00 06/11/19 13:44 05/14/19 08:46 Rosemary Lui MD May 14, 2019 14:55
--- NOTE | 2019-05-14 14:59 | Internal Med Progress Note ---
Subjective Date of Service: May 14, 2019 Physician Name Barrett Cooney Attending Physician Castro De La Cruz MD Current Medications Medications (Trade) Dose Ordered Sig/Selene Route PRN Reason Start Time Stop Time Status Last Admin Dose Admin Acetaminophen (Tylenol) 650 mg Q4H PRN ORAL Fever (temp>100.5F) 05/10/19 12:00 06/09/19 11:59 Albuterol/ Ipratropium (Albuterol/ Ipratropium) 3 ml Q4H PRN HHN Shortness of Breath 05/10/19 12:00 05/15/19 11:59 Dextrose (Dextrose 50%) 25 ml Q30M PRN IV Hypoglycemia 05/10/19 12:00 06/09/19 11:59 Dextrose (Dextrose 50%) 50 ml Q30M PRN IV Hypoglycemia 05/10/19 12:00 06/09/19 11:59 Heparin Sodium (Porcine) (Heparin 5000 units/ml) 5,000 units EVERY 12 HOURS SUBQ 05/10/19 21:00 06/09/19 20:59 05/14/19 08:42 Hydralazine HCl (Apresoline) 25 mg Q4H PRN GT For High Blood Pressure 05/12/19 12:01 06/09/19 12:00 Ondansetron HCl (Zofran) 4 mg Q6H PRN IVP Nausea & Vomiting 05/10/19 12:00 06/09/19 11:59 Polyethylene Glycol (Miralax) 17 gm DAILYPRN PRN ORAL Constipation 05/10/19 12:00 06/09/19 11:59 Temazepam (Restoril) 15 mg HSPRN PRN ORAL Insomnia 05/10/19 12:00 05/17/19 11:59 Zinc Oxide (Zinc Oxide) 1 applic BID TOPIC 05/12/19 18:00 06/11/19 13:44 05/14/19 08:46 Allergies: Coded Allergies: No Known Allergies (Unverified , 07/16/17) ROS Limited/Unobtainable: Yes Subjective 83 YO F admitted with fever. Now bilateral pneumonia and sepsis. Also anemia and pancreatitis. Cover For Int Marshal-Dr De La Cruz Objective Last Vital Signs Date Time Temp Pulse Resp B/P (MAP) Pulse Ox O2 Delivery O2 Flow Rate FiO2 05/14/19 12:00 97.9 78 18 144/58 (86) 99 05/14/19 09:00 Room Air 05/13/19 20:12 21 Laboratory Tests Test 05/14/19 06:00 White Blood Count 4.6 K/UL (4.8-10.8) L Red Blood Count 3.41 M/UL (4.20-5.40) L Hemoglobin 9.6 G/DL (12.0-16.0) L Hematocrit 31.9 % (37.0-47.0) L Mean Corpuscular Volume 94 FL (80-99) Mean Corpuscular Hemoglobin 28.3 PG (27.0-31.0) Mean Corpuscular Hemoglobin Concent 30.2 G/DL (32.0-36.0) L Red Cell Distribution Width 20.4 % (11.6-14.8) H Platelet Count 232 K/UL (150-450) Mean Platelet Volume 6.1 FL (6.5-10.1) L Neutrophils (%) (Auto) 68.8 % (45.0-75.0) Lymphocytes (%) (Auto) 19.9 % (20.0-45.0) L Monocytes (%) (Auto) 5.2 % (1.0-10.0) Eosinophils (%) (Auto) 5.4 % (0.0-3.0) H Basophils (%) (Auto) 0.7 % (0.0-2.0) Sodium Level 143 MMOL/L (136-145) Potassium Level 3.2 MMOL/L (3.5-5.1) L Chloride Level 104 MMOL/L (98-107) Carbon Dioxide Level 29 MMOL/L (21-32) Anion Gap 10 mmol/L (5-15) Blood Urea Nitrogen 29 mg/dL (7-18) H Creatinine 5.4 MG/DL (0.55-1.30) H Estimat Glomerular Filtration Rate mL/min (>60) Glucose Level 99 MG/DL (74-106) Calcium Level 10.0 MG/DL (8.5-10.1) Phosphorus Level 5.5 MG/DL (2.5-4.9) H Magnesium Level 2.4 MG/DL (1.8-2.4) Total Bilirubin 0.3 MG/DL (0.2-1.0) Aspartate Amino Transf (AST/SGOT) 43 U/L (15-37) H Alanine Aminotransferase (ALT/SGPT) 58 U/L (12-78) Alkaline Phosphatase 139 U/L (46-116) H Total Protein 7.4 G/DL (6.4-8.2) Albumin 2.2 G/DL (3.4-5.0) L Globulin 5.2 g/dL Albumin/Globulin Ratio 0.4 (1.0-2.7) L Amylase Level 189 U/L (25-115) H Lipase 814 U/L (73-393) H Intake and Output 05/13/19 05/14/19 19:00 07:00 Intake Total 495 ml 480 ml Balance 495 ml 480 ml Intake Free Water 90 ml 60 ml Tube Feeding 405 ml 420 ml # Bowel Movements 2 1 Objective PHYSICAL EXAMINATION: GENERAL: The patient is a well-developed and well-nourished slightly obese female, in no apparent distress. HEENT: Eyes, pupils are equal and responsive to light and accommodation. Extraocular movements are intact. NECK: Supple without lymphadenopathy. CHEST: Decreased breath sounds with crackles at bilateral bases. Otherwise, without wheezes bilaterally. ABDOMINAL: Soft, nontender, and nondistended. Positive bowel sounds. No evidence of hepatosplenomegaly. Currently, no rebound or guarding noted. EXTREMITIES: Negative for clubbing, cyanosis, or edema. There is bilateral [id number] amputation. NEUROLOGIC: Cranial nerves II through XII are grossly intact without focal deficits. Assessment/Plan Assessment/Plan ASSESSMENT: This is an 83-year-old female. 1. Fever. 2. Bibasilar pneumonia. 3. Diabetes type 2. 4. Hypercholesterolemia. 5. Hypertension. 6. End-stage renal disease. 7. Gout. 8. Cerebrovascular disease, status post cerebrovascular accident. 9. Peripheral vascular disease. 10. Deep venous thrombosis. 11. Bilateral provi-vfv-pmoi amputation. 12. Sepsis-Staph species 13. Anemia TREATMENT: 1. Fever/bibasilar pneumonia. D/C Antibiotic per ID. An Infectious Disease consultation has been obtained with Dr Cardenas. We will follow recommendations of Infectious Disease. A Pulmonary consultation has been obtained with Dr. Rosemary Lui. 2. Diabetes type 2. The patient has been placed on a NovoLog sliding scale. 3. Hypercholesterolemia. Continue atorvastatin as above. 4. Hypertension. Continue hydralazine as above. 5. End-stage renal disease- hemodialysis 05/15/19. A Nephrology consultation has been obtained with Dr. Rich. 6. Gout. Continue allopurinol as above. 7. Cerebrovascular disease. The patient is status post CVA. 8. Peripheral vascular disease. The patient is status post bilateral ikgoa-wkc-unns amputation. 9. History of deep venous thrombosis. 10. Anemia workup in progress Barrett Cooney MD May 14, 2019 14:59
[2019-05-14 16:00] VITALS: BP 138/62
--- NOTE | 2019-05-14 17:19 | NUR ---
CASE MANAGEMENT: REVIEW 05/14/2019 SI:SEPSIS . ESRD T 97.9 HR 78 RR 18 B/P 144/58 SATS 99% ON RA WBC 4.6 K 3.2 BUN 29 CR 5.4 PHOS 5.5 AST 43 ALP 139 AMYLASE LIPASE 814 IS:HEPARIN SUBQ Q12H MED/SURG STATUS
--- NOTE | 2019-05-14 19:49 | NUR ---
HAND-OFF: Report given to Jeb IVY. Patient is stable.
[2019-05-14 20:00] VITALS: BP 152/57
--- NOTE | 2019-05-14 20:10 | NUR ---
NURSE NOTES: Patient in bed, awake, unable to make needs known. Kept clean and comfortable. Provided safe environment. Bed in low and locked position. GT site noted, feeding is infusing as ordered. Iv site noted. Noted with sacral dressing. Call light is at bedside. Will continue plan of care.
[2019-05-15] VITALS: BP 143/68
[2019-05-15 04:00] VITALS: BP 143/61
--- NOTE | 2019-05-15 06:43 | NUR ---
NURSE NOTES: Raya from lab unable to collect blood draw, will come back.
--- NOTE | 2019-05-15 07:08 | General Progress Note ---
Assessment/Plan Problem List: (1) G tube feedings ICD Codes: Z93.1 - Gastrostomy status SNOMED: 007237330, 498302020, [id number] (2) HTN (hypertension) ICD Codes: I10 - Essential (primary) hypertension SNOMED: 00057100 (3) DM (diabetes mellitus) ICD Codes: E11.9 - Type 2 diabetes mellitus without complications SNOMED: 64163560 (4) Pancreatitis ICD Codes: K85.90 - Acute pancreatitis without necrosis or infection, unspecified SNOMED: 54646027 (5) Anemia ICD Codes: D64.9 - Anemia, unspecified SNOMED: 547474955 (6) ESRD (end stage renal disease) on dialysis ICD Codes: N18.6 - End stage renal disease; Z99.2 - Dependence on renal dialysis SNOMED: 639807626 Assessment/Plan: fu stool ob neg x2 hold EGD and colonoscopy for now fu H&H GTF 35 GT flush Subjective ROS Limited/Unobtainable: No Allergies: Coded Allergies: No Known Allergies (Unverified , 07/16/17) Objective Last 24 Hour Vital Signs Date Time Temp Pulse Resp B/P (MAP) Pulse Ox O2 Delivery O2 Flow Rate FiO2 05/15/19 04:00 98.6 75 18 143/61 (88) 97 05/15/19 00:00 98.7 84 16 143/68 (93) 96 05/14/19 21:00 Room Air 05/14/19 20:00 97.8 82 18 152/57 (88) 95 05/14/19 19:52 77 18 98 Room Air 21 05/14/19 16:00 98.1 74 18 138/62 (87) 99 05/14/19 12:00 97.9 78 18 144/58 (86) 99 05/14/19 09:00 Room Air 05/14/19 08:00 97.8 83 18 138/66 (90) 99 Intake and Output 05/14/19 05/15/19 19:00 07:00 Intake Total 165 ml 195 ml Balance 165 ml 195 ml Intake Free Water 30 ml 90 ml Tube Feeding 35 ml 105 ml Blood Product 100 ml # Voids 4 3 # Bowel Movements 1 Height (Feet): 4 Height (Inches): 0.00 Weight (Pounds): 170 General Appearance: no apparent distress EENT: normal ENT inspection Neck: supple Cardiovascular: normal rate Respiratory/Chest: decreased breath sounds Abdomen: normal bowel sounds, non tender, soft Extremities: non-tender Ezequiel Perales MD May 15, 2019 07:08
[2019-05-15 07:23] LABS: BASOPHILS % (AUTO) 0.9 % (0.0-2.0); EOSINOPHILS % (AUTO) 6.7 % (0.0-3.0); HEMATOCRIT 29.1 % (37.0-47.0); HEMOGLOBIN 9.1 G/DL (12.0-16.0); LYMPHOCYTES % (AUTO) 17.9 % (20.0-45.0); MEAN CORPUSCULAR VOLUME 90 FL (80-99); MONOCYTES % (AUTO) 5.5 % (1.0-10.0); PLATELET COUNT 228 K/UL (150-450); RED BLOOD COUNT 3.22 M/UL (4.20-5.40); RED CELL DISTRIBUTION WIDTH 19.6 % (11.6-14.8); WHITE BLOOD COUNT 5.7 K/UL (4.8-10.8)
--- NOTE | 2019-05-15 07:24 | NUR ---
HAND-OFF: Report given to CATA scott. Endorsed to follow up regarding skin issues.
[2019-05-15 07:34] LABS: ALANINE AMINOTRANSFERASE 44 U/L (12-78); ALBUMIN/GLOBULIN RATIO 0.4 (1.0-2.7); ALKALINE PHOSPHATASE 116 U/L (46-116); ANION GAP 12 mmol/L (5-15); ASPARTATE AMINO TRANSFERASE 30 U/L (15-37); BILIRUBIN,TOTAL 0.4 MG/DL (0.2-1.0); BLOOD UREA NITROGEN 44 mg/dL (7-18); CALCIUM 9.9 MG/DL (8.5-10.1); CARBON DIOXIDE 27 MMOL/L (21-32); CHLORIDE 105 MMOL/L (98-107); CREATININE 7.2 MG/DL (0.55-1.30); PHOSPHORUS 6.3 MG/DL (2.5-4.9); POTASSIUM 3.8 MMOL/L (3.5-5.1); SODIUM 144 MMOL/L (136-145)
[2019-05-15 07:38] LABS: AMYLASE 199 U/L (25-115)
--- NOTE | 2019-05-15 07:41 | NUR ---
NURSE NOTES: Received report from CATA Russ. Pt in bed, nonverbal, tracks with eyes, GTube feeds on hold for pending abdominal ultrasound, bed in lowest position, HOB >30 degrees, no apparent distress noted, pt calm, in relaxed position, no appearance of pain or distress, respirations unlabored, call light within reach.
[2019-05-15 08:00] VITALS: BP 140/68
[2019-05-15] MEDS: Zinc Oxide Oint 2oz TOPIC SCH ×2 (09:49→17:39)
[2019-05-15] MEDS: Heparin 5000 units/ml inj SUBQ SCH ×2 (09:50→21:21)
[2019-05-15 11:48] VITALS: BP 127/71
--- NOTE | 2019-05-15 13:14 | Pulmonology Progress Note ---
Assessment/Plan Problems: (1) Sepsis (2) HTN (hypertension) (3) DM (diabetes mellitus) (4) ESRD (end stage renal disease) on dialysis Assessment/Plan all reviewed improving WBC lower check cultures, BC is positive for gram positive Cocci off iv abx, afebrile renal evaluation symptomatic treatment gtube feeding dvt prophylaxis. Subjective ROS Limited/Unobtainable: No Constitutional: Reports: no symptoms HEENT: Repors: no symptoms Allergies: Coded Allergies: No Known Allergies (Unverified , 07/16/17) Objective Last 24 Hour Vital Signs Date Time Temp Pulse Resp B/P (MAP) Pulse Ox O2 Delivery O2 Flow Rate FiO2 05/15/19 11:48 98.8 77 16 127/71 (89) 98 05/15/19 09:00 Room Air 05/15/19 08:00 98.3 77 18 140/68 (92) 98 05/15/19 07:20 68 16 98 Room Air 21 05/15/19 04:00 98.6 75 18 143/61 (88) 97 05/15/19 00:00 98.7 84 16 143/68 (93) 96 05/14/19 21:00 Room Air 05/14/19 20:00 97.8 82 18 152/57 (88) 95 05/14/19 19:52 77 18 98 Room Air 21 05/14/19 16:00 98.1 74 18 138/62 (87) 99 Intake and Output 05/14/19 05/15/19 19:00 07:00 Intake Total 165 ml 195 ml Balance 165 ml 195 ml Intake Free Water 30 ml 90 ml Tube Feeding 35 ml 105 ml Blood Product 100 ml # Voids 4 3 # Bowel Movements 1 Objective General Appearance: WD/WN Respiratory/Chest: chest wall non-tender, lungs clear Breasts: no masses Cardiovascular: normal peripheral pulses, normal rate Abdomen: normal bowel sounds Genitourinary: normal external genitalia Skin: no rash above knee amputation Laboratory Tests 05/15/19 07:10: White Blood Count 5.7, Red Blood Count 3.22L, Hemoglobin 9.1L, Hematocrit 29.1L , Mean Corpuscular Volume 90, Mean Corpuscular Hemoglobin 28.3, Mean Corpuscular Hemoglobin Concent 31.3L, Red Cell Distribution Width 19.6H, Platelet Count 228, Mean Platelet Volume 5.7L, Neutrophils (%) (Auto) 69.0, Lymphocytes (%) (Auto) 17.9L, Monocytes (%) (Auto) 5.5, Eosinophils (%) (Auto) 6.7H, Basophils (%) (Auto) 0.9, Sodium Level 144, Potassium Level 3.8, Chloride Level 105, Carbon Dioxide Level 27, Anion Gap 12, Blood Urea Nitrogen 44H, Creatinine 7.2H, Estimat Glomerular Filtration Rate , Glucose Level 85, Calcium Level 9.9, Phosphorus Level 6.3H, Magnesium Level 2.6H, Total Bilirubin 0.4, Aspartate Amino Transf (AST/SGOT) 30, Alanine Aminotransferase (ALT/SGPT) 44, Alkaline Phosphatase 116, Total Protein 6.9, Albumin 2.0L, Globulin 4.9, Albumin /Globulin Ratio 0.4L, Amylase Level 199H, Lipase 842H Current Medications Medications (Trade) Dose Ordered Sig/Selene Route PRN Reason Start Time Stop Time Status Last Admin Dose Admin Acetaminophen (Tylenol) 650 mg Q4H PRN ORAL Fever (temp>100.5F) 05/10/19 12:00 06/09/19 11:59 Dextrose (Dextrose 50%) 25 ml Q30M PRN IV Hypoglycemia 05/10/19 12:00 06/09/19 11:59 Dextrose (Dextrose 50%) 50 ml Q30M PRN IV Hypoglycemia 05/10/19 12:00 06/09/19 11:59 Heparin Sodium (Porcine) (Heparin 5000 units/ml) 5,000 units EVERY 12 HOURS SUBQ 05/10/19 21:00 06/09/19 20:59 05/15/19 09:50 Hydralazine HCl (Apresoline) 25 mg Q4H PRN GT For High Blood Pressure 05/12/19 12:01 06/09/19 12:00 Ondansetron HCl (Zofran) 4 mg Q6H PRN IVP Nausea & Vomiting 05/10/19 12:00 06/09/19 11:59 Polyethylene Glycol (Miralax) 17 gm DAILYPRN PRN ORAL Constipation 05/10/19 12:00 06/09/19 11:59 Temazepam (Restoril) 15 mg HSPRN PRN ORAL Insomnia 05/10/19 12:00 05/17/19 11:59 Zinc Oxide (Zinc Oxide) 1 applic BID TOPIC 05/12/19 18:00 06/11/19 13:44 05/15/19 09:49 Rosemary Lui MD May 15, 2019 13:14
--- NOTE | 2019-05-15 13:31 | NUR ---
RD ASSESSMENT & RECOMMENDATIONS SEE CARE ACTIVITY FOR COMPLETE ASSESSMENT DAILY ESTIMATED NEEDS: Needs based on ESRD/HD, wound/ 56kg adj for BL AKA 30-35 kcals/kg 9046-9459 total kcals 1.25-1.8 g protein/kg 70-101 g total protein Fluid per MD, on HD NUTRITION DIAGNOSIS: (1) Increased kcal/pro intake needs R/T renal dysfunction, wound healing as evidenced by ESRD dx, on HD. w/ wmultiple full thickness pressure injuries R ,L buttocks and L ischium. sacrum extending down to lower R buttocks erythematous with multiple areas (2) Altered nutrition related lab values R/T clinical status as evidenced by elev Lipase >2000. CURRENT TF:Nepro @ 35ml/hr x 24 hrs ENTERAL NUTRITION RECOMMENDATIONS: Nepro @ 40ml/hr x 24 hrs to provide 960ml, 1728kcal, 78g pro, 698ml free water * INCREASE goal rate to 40ml/hr x 24 hrs * HOB over 30 degrees/ water flush per MD ADDITIONAL RECOMMENDATIONS: * Calibrated dry wt post HD * Brian 1pkt BID for wound healing via GT * Add NEPHROVITE x1 daily * Monitor phos level, consider Phos binders (Phos level consistently high)
--- NOTE | 2019-05-15 13:44 | Infectious Diseases Prog Note ---
Assessment/Plan Assessment/Plan Stehpani Mccauley is a 83 yo female with PMHx DM, ESRD on HD, HTN, Gout, HLD, CVA, and DVT who is not verbal and was sent to the ED on 05/10/19 for B/L PNA but was found to have pancreatitis on evaluation. Pancreatitis Lipase 739 No sign of active infection Leukocytosis resovled Afebrile Positive blood Cx Most likely a containment Blood Cx 05/10/19 1/4 S. epi; 05/12 Bcx p CXR showed No definite acute process and Evidence old granulomatous disease. Lipase was elevated at 739. He is currently off abx. DM ESRD on HD HTN Gout HLD CVA DVT PLAN - Monitor off abx - 05/14/19 SP Vancomycin #4 - 05/12/19 Amikacin #2 -f/u repeat blood Cx - Still pending will discuss with nurse - Monitor CBC and Temps Thank you for this consult. We will continue to follow the patient with you. Subjective Allergies: Coded Allergies: No Known Allergies (Unverified , 07/16/17) Subjective afebrile no leukocytosis repaet Bcx p Objective Vital Signs Last 24 Hour Vital Signs Date Time Temp Pulse Resp B/P (MAP) Pulse Ox O2 Delivery O2 Flow Rate FiO2 05/15/19 11:48 98.8 77 16 127/71 (89) 98 05/15/19 09:00 Room Air 05/15/19 08:00 98.3 77 18 140/68 (92) 98 05/15/19 07:20 68 16 98 Room Air 05/15/19 04:00 98.6 75 18 143/61 (88) 97 05/15/19 00:00 98.7 84 16 143/68 (93) 96 05/14/19 21:00 Room Air 05/14/19 20:00 97.8 82 18 152/57 (88) 95 05/14/19 19:52 77 18 98 Room Air 21 05/14/19 16:00 98.1 74 18 138/62 (87) 99 Height (Feet): 4 Height (Inches): 0.00 Weight (Pounds): 170 Objective Gen: NAD on RA HEENT: NCAT, MMM, PERRL LUNGS: Coarse B/L CARDS: RRR, S1, S2 ABD: Soft, NT, ND, NEURO: Awake, Not following commands Laboratory Tests Test 05/15/19 07:10 White Blood Count 5.7 K/UL (4.8-10.8) Red Blood Count 3.22 M/UL (4.20-5.40) L Hemoglobin 9.1 G/DL (12.0-16.0) L Hematocrit 29.1 % (37.0-47.0) L Mean Corpuscular Volume 90 FL (80-99) Mean Corpuscular Hemoglobin 28.3 PG (27.0-31.0) Mean Corpuscular Hemoglobin Concent 31.3 G/DL (32.0-36.0) L Red Cell Distribution Width 19.6 % (11.6-14.8) H Platelet Count 228 K/UL (150-450) Mean Platelet Volume 5.7 FL (6.5-10.1) L Neutrophils (%) (Auto) 69.0 % (45.0-75.0) Lymphocytes (%) (Auto) 17.9 % (20.0-45.0) L Monocytes (%) (Auto) 5.5 % (1.0-10.0) Eosinophils (%) (Auto) 6.7 % (0.0-3.0) H Basophils (%) (Auto) 0.9 % (0.0-2.0) Sodium Level 144 MMOL/L (136-145) Potassium Level 3.8 MMOL/L (3.5-5.1) Chloride Level 105 MMOL/L (98-107) Carbon Dioxide Level 27 MMOL/L (21-32) Anion Gap 12 mmol/L (5-15) Blood Urea Nitrogen 44 mg/dL (7-18) H Creatinine 7.2 MG/DL (0.55-1.30) H Estimat Glomerular Filtration Rate mL/min (>60) Glucose Level 85 MG/DL (74-106) Calcium Level 9.9 MG/DL (8.5-10.1) Phosphorus Level 6.3 MG/DL (2.5-4.9) H Magnesium Level 2.6 MG/DL (1.8-2.4) H Total Bilirubin 0.4 MG/DL (0.2-1.0) Aspartate Amino Transf (AST/SGOT) 30 U/L (15-37) Alanine Aminotransferase (ALT/SGPT) 44 U/L (12-78) Alkaline Phosphatase 116 U/L (46-116) Total Protein 6.9 G/DL (6.4-8.2) Albumin 2.0 G/DL (3.4-5.0) L Globulin 4.9 g/dL Albumin/Globulin Ratio 0.4 (1.0-2.7) L Amylase Level 199 U/L (25-115) H Lipase 842 U/L (73-393) H Current Medications Medications (Trade) Dose Ordered Sig/Selene Route PRN Reason Start Time Stop Time Status Last Admin Dose Admin Acetaminophen (Tylenol) 650 mg Q4H PRN ORAL Fever (temp>100.5F) 05/10/19 12:00 06/09/19 11:59 Dextrose (Dextrose 50%) 25 ml Q30M PRN IV Hypoglycemia 05/10/19 12:00 06/09/19 11:59 Dextrose (Dextrose 50%) 50 ml Q30M PRN IV Hypoglycemia 05/10/19 12:00 06/09/19 11:59 Heparin Sodium (Porcine) (Heparin 5000 units/ml) 5,000 units EVERY 12 HOURS SUBQ 05/10/19 21:00 06/09/19 20:59 05/15/19 09:50 Hydralazine HCl (Apresoline) 25 mg Q4H PRN GT For High Blood Pressure 05/12/19 12:01 06/09/19 12:00 Ondansetron HCl (Zofran) 4 mg Q6H PRN IVP Nausea & Vomiting 05/10/19 12:00 06/09/19 11:59 Polyethylene Glycol (Miralax) 17 gm DAILYPRN PRN ORAL Constipation 05/10/19 12:00 06/09/19 11:59 Temazepam (Restoril) 15 mg HSPRN PRN ORAL Insomnia 05/10/19 12:00 05/17/19 11:59 Zinc Oxide (Zinc Oxide) 1 applic BID TOPIC 05/12/19 18:00 06/11/19 13:44 05/15/19 09:49 Tiera Russell M.D. May 15, 2019 13:44
--- NOTE | 2019-05-15 14:01 | NUR ---
*-* DISCHARGE PLANNING *-* . PATIENT HAS BEEN REFERRED BACK TOP: KARLEE ESQUEDA P;[phone] F:[phone]
--- NOTE | 2019-05-15 14:06 | NUR ---
[employer] NOTES SPOKE WITH LEEANN FROM [facility], VERIFIED PATIENTS CHAIR TIME AND DIALYSIS DAYS. PT HD DAYS T , S @ 0600.PT TO RETURN TO FACILITY SKILLED. [facility] [phone]
--- NOTE | 2019-05-15 14:11 | NUR ---
*-* DISCHARGE PLANNED *-* PATIENT IS DISCHARGED BACK TO: [facility] ROOM# 15-B SKILLED S/W JOESPH AT [facility] T: [phone] FOR NURSE TO NURSE REPORT [facility] HAS BEEN ARRANGED FOR [facility] AT [id number] *-* MARGUERITE RUVALCABA PATIENTS SON HAS BEEN NOTIFIED OF PATIENT DISCHARGE *-*
[2019-05-15] MEDS ORDERED: NS 275ml ONE (14:14)
--- NOTE | 2019-05-15 14:20 | Diagnostic Imaging Report ---
Indication: Abdominal pain Technique: Grayscale and duplex Doppler imaging of the abdomen performed. Comparison: None Findings: There are multiple cysts within the liver. Doppler interrogation of the main portal vein shows patency with hepatopedal, monophasic flow. There is no biliary ductal dilatation identified. CBD measures 6 mm. Gallstones noted. Sonographic Tuttle's sign was negative per technologist. There demonstrated part of the pancreas, aorta and IVC show no definite abnormalities. Both kidneys are not well seen both kidneys appear echogenic. There are multiple cysts in the right kidney.. There is no hydronephrosis. IMPRESSION: Cholelithiasis Medical renal disease. Cysts in the right kidney Liver cysts.
--- NOTE | 2019-05-15 15:07 | NUR ---
NURSE NOTES: Pt is scheduled for HD today. Spoke with HD nurse, she will start pt at 1800. RN called [facility] ambulance and resheduled bean picker for 2129. RN attempted to call [facility] to give report. Nurse at [facility] stated she does not have referral at this time and cannot take report. RN called [facility], no answer, will continue to contact CM Addendum: 05/15/19 at 1630 by MAYNOR DIOR RN 1535: Spoke with MAGDIEL Tinoco, she re-faxed referral to [facility]. RN told CM pt is scheduled to have HD today and HD nurse will come at 1800 and bean picker was rescheduled to 2129. MAGDIEL stated she will contact Dr. Rich to confirm if HD is still needed if pt is scheduled for HD tomorrow. 1545: RN called [facility] to give report, CV stated they needed more time to review and to call back
--- NOTE | 2019-05-15 15:43 | NUR ---
NURSE NOTES: Asked Dr. Russell if VRE is colonized
--- NOTE | 2019-05-15 15:46 | Nephrology Progress Note ---
Assessment/Plan Problem List: (1) ESRD (end stage renal disease) on dialysis (2) Pancreatitis (3) Anemia due to chronic kidney disease Assessment (1) Sepsis (2) HTN (hypertension) (3) DM (diabetes mellitus) (4) ESRD (end stage renal disease) on dialysis (5) Anemia of CKD (6) Lipase over 1999 Plan HD 05/11 next 05/13 next 05/15 DC planning adjust BP meds Anemia mccarthy per orders Subjective ROS Limited/Unobtainable: No Objective Objective Last 24 Hour Vital Signs Date Time Temp Pulse Resp B/P (MAP) Pulse Ox O2 Delivery O2 Flow Rate FiO2 05/15/19 11:48 98.8 77 16 127/71 (89) 98 05/15/19 09:00 Room Air 05/15/19 08:00 98.3 77 18 140/68 (92) 98 05/15/19 07:20 68 16 98 Room Air 21 05/15/19 04:00 98.6 75 18 143/61 (88) 97 05/15/19 00:00 98.7 84 16 143/68 (93) 96 05/14/19 21:00 Room Air 05/14/19 20:00 97.8 82 18 152/57 (88) 95 05/14/19 19:52 77 18 98 Room Air 21 05/14/19 16:00 98.1 74 18 138/62 (87) 99 Intake and Output 05/14/19 05/15/19 19:00 07:00 Intake Total 165 ml 195 ml Balance 165 ml 195 ml Intake Free Water 30 ml 90 ml Tube Feeding 35 ml 105 ml Blood Product 100 ml # Voids 4 3 # Bowel Movements 1 Laboratory Tests 05/15/19 07:10: White Blood Count 5.7, Red Blood Count 3.22L, Hemoglobin 9.1L, Hematocrit 29.1L , Mean Corpuscular Volume 90, Mean Corpuscular Hemoglobin 28.3, Mean Corpuscular Hemoglobin Concent 31.3L, Red Cell Distribution Width 19.6H, Platelet Count 228, Mean Platelet Volume 5.7L, Neutrophils (%) (Auto) 69.0, Lymphocytes (%) (Auto) 17.9L, Monocytes (%) (Auto) 5.5, Eosinophils (%) (Auto) 6.7H, Basophils (%) (Auto) 0.9, Sodium Level 144, Potassium Level 3.8, Chloride Level 105, Carbon Dioxide Level 27, Anion Gap 12, Blood Urea Nitrogen 44H, Creatinine 7.2H, Estimat Glomerular Filtration Rate , Glucose Level 85, Calcium Level 9.9, Phosphorus Level 6.3H, Magnesium Level 2.6H, Total Bilirubin 0.4, Aspartate Amino Transf (AST/SGOT) 30, Alanine Aminotransferase (ALT/SGPT) 44, Alkaline Phosphatase 116, Total Protein 6.9, Albumin 2.0L, Globulin 4.9, Albumin /Globulin Ratio 0.4L, Amylase Level 199H, Lipase 842H Height (Feet): 4 Height (Inches): 0.00 Weight (Pounds): 170 General Appearance: no apparent distress Cardiovascular: normal peripheral pulses Respiratory/Chest: decreased breath sounds Abdomen: distended, other - PEG Extremities: other - AKAs Objective no change Matthew Rich MD May 15, 2019 15:45
[2019-05-15 16:00] VITALS: BP 135/78
--- NOTE | 2019-05-15 16:26 | NUR ---
NURSE NOTES: Called report to Daniela Nurse at [facility]. Nurse aware pt may have HD today and may not be picked up until 2129
--- NOTE | 2019-05-15 16:50 | Surgery Progress Note ---
Surgery Progress Note Subjective Additional Comments afebrile, HD stable, no acute events labs noted Objective Last 24 Hour Vital Signs Date Time Temp Pulse Resp B/P (MAP) Pulse Ox O2 Delivery O2 Flow Rate FiO2 05/15/19 16:00 98.1 80 18 135/78 (97) 98 05/15/19 11:48 98.8 77 16 127/71 (89) 98 05/15/19 09:00 Room Air 05/15/19 08:00 98.3 77 18 140/68 (92) 98 05/15/19 07:20 68 16 98 Room Air 21 05/15/19 04:00 98.6 75 18 143/61 (88) 97 05/15/19 00:00 98.7 84 16 143/68 (93) 96 05/14/19 21:00 Room Air 05/14/19 20:00 97.8 82 18 152/57 (88) 95 05/14/19 19:52 77 18 98 Room Air 21 I&O Intake and Output 05/14/19 05/15/19 19:00 07:00 Intake Total 165 ml 195 ml Balance 165 ml 195 ml Intake Free Water 30 ml 90 ml Tube Feeding 35 ml 105 ml Blood Product 100 ml # Voids 4 3 # Bowel Movements 1 Dressing: saturated Wound: other Drains: other Cardiovascular: RSR Respiratory: decreased breath sounds Abdomen: soft, present bowel sounds Extremities: other Laboratory Tests Test 05/15/19 07:10 White Blood Count 5.7 K/UL (4.8-10.8) Red Blood Count 3.22 M/UL (4.20-5.40) L Hemoglobin 9.1 G/DL (12.0-16.0) L Hematocrit 29.1 % (37.0-47.0) L Mean Corpuscular Volume 90 FL (80-99) Mean Corpuscular Hemoglobin 28.3 PG (27.0-31.0) Mean Corpuscular Hemoglobin Concent 31.3 G/DL (32.0-36.0) L Red Cell Distribution Width 19.6 % (11.6-14.8) H Platelet Count 228 K/UL (150-450) Mean Platelet Volume 5.7 FL (6.5-10.1) L Neutrophils (%) (Auto) 69.0 % (45.0-75.0) Lymphocytes (%) (Auto) 17.9 % (20.0-45.0) L Monocytes (%) (Auto) 5.5 % (1.0-10.0) Eosinophils (%) (Auto) 6.7 % (0.0-3.0) H Basophils (%) (Auto) 0.9 % (0.0-2.0) Sodium Level 144 MMOL/L (136-145) Potassium Level 3.8 MMOL/L (3.5-5.1) Chloride Level 105 MMOL/L (98-107) Carbon Dioxide Level 27 MMOL/L (21-32) Anion Gap 12 mmol/L (5-15) Blood Urea Nitrogen 44 mg/dL (7-18) H Creatinine 7.2 MG/DL (0.55-1.30) H Estimat Glomerular Filtration Rate mL/min (>60) Glucose Level 85 MG/DL (74-106) Calcium Level 9.9 MG/DL (8.5-10.1) Phosphorus Level 6.3 MG/DL (2.5-4.9) H Magnesium Level 2.6 MG/DL (1.8-2.4) H Total Bilirubin 0.4 MG/DL (0.2-1.0) Aspartate Amino Transf (AST/SGOT) 30 U/L (15-37) Alanine Aminotransferase (ALT/SGPT) 44 U/L (12-78) Alkaline Phosphatase 116 U/L (46-116) Total Protein 6.9 G/DL (6.4-8.2) Albumin 2.0 G/DL (3.4-5.0) L Globulin 4.9 g/dL Albumin/Globulin Ratio 0.4 (1.0-2.7) L Amylase Level 199 U/L (25-115) H Lipase 842 U/L (73-393) H Plan Problems: (1) HTN (hypertension) (2) DM (diabetes mellitus) (3) Sepsis Assessment & Plan: DAILY ESTIMATED NEEDS: Needs based on ESRD/HD, wound/ 56kg adj for BL AKA 30-35 kcals/kg 6597-8281 total kcals 1.25-1.8 g protein/kg 70-101 g total protein Fluid per MD, on HD NUTRITION DIAGNOSIS: (1) Increased kcal/pro intake needs R/T renal dysfunction, wound healing as evidenced by ESRD dx, on HD. w/ sacral wound, pending eval. (2) Altered nutrition related lab values R/T clinical status as evidenced by elev Lipase >2000. ENTERAL NUTRITION RECOMMENDATIONS: Nepro @ 40ml/hr x 24 hrs to provide 960ml, 1728kcal, 78g pro, 698ml free water * As medically able, rec to start NEPRO @20ml/hr for 6 hrs * Increase 10ml/hr q4-6 hrs to goal * HOB over 30 degrees/ water flush per MD ----- ADDITIONAL RECOMMENDATIONS: * Calibrated dry wt post HD * Brian 1pkt BID for wound healing via GT w/ TF order * Add NEPHROVITE x1 daily * F/up w/ WC eval (4) Pancreatitis Assessment & Plan: on admission with leukocytosis and pancreatitis asymptomatic clinically Continue to trend labs US ordered pending will monitor thank you (5) Electrolyte imbalance (6) GI bleed (7) Fever (8) Anemia (9) ESRD (end stage renal disease) on dialysis (10) 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 Small amt seropurulent exudate noted.(L )20cm x (W)19cm.. L sacrum extending into L lower buttocks erythematous ,macerated with scattered areas of yellow slough through out base of wound.Wound is malodorous. Small amt seropurulent exudate noted (L)14cm x (W)8cm.Periwound noted to have darker skin tone that is indurated. L ischium darker than is normal skin tone and indurated with scattered open wound exuding small amt serous exudate. (L)4cm x (W)8.5cm. Incontinence associated dermatitis noted to perineum and medial aspects of both upper thigh.Skin is erythematous and denuded. Tx.Plan: Cleanse R ,L buttocks and L Ischium with Saline. Apply Therahoney to areas of Slough. Apply Triad paste to borders Cover with Optifoams .Change Daily and prn. Apply Triad Paste to Bilat groin and medial aspects of both upper thighs with each incontinence care. APM/TIAGO Mattress overlay. Reposition at least every 2hours or as tolerated. Willian Machado May 15, 2019 16:50
--- NOTE | 2019-05-15 19:19 | Internal Med Progress Note ---
Subjective Date of Service: May 15, 2019 Physician Name Barrett Cooney Attending Physician Castro De La Cruz MD Current Medications Medications (Trade) Dose Ordered Sig/Selene Route PRN Reason Start Time Stop Time Status Last Admin Dose Admin Acetaminophen (Tylenol) 650 mg Q4H PRN ORAL Fever (temp>100.5F) 05/10/19 12:00 06/09/19 11:59 Dextrose (Dextrose 50%) 25 ml Q30M PRN IV Hypoglycemia 05/10/19 12:00 06/09/19 11:59 Dextrose (Dextrose 50%) 50 ml Q30M PRN IV Hypoglycemia 05/10/19 12:00 06/09/19 11:59 Heparin Sodium (Porcine) (Heparin 5000 units/ml) 5,000 units EVERY 12 HOURS SUBQ 05/10/19 21:00 06/09/19 20:59 05/15/19 09:50 Hydralazine HCl (Apresoline) 25 mg Q4H PRN GT For High Blood Pressure 05/12/19 12:01 06/09/19 12:00 Ondansetron HCl (Zofran) 4 mg Q6H PRN IVP Nausea & Vomiting 05/10/19 12:00 06/09/19 11:59 Polyethylene Glycol (Miralax) 17 gm DAILYPRN PRN ORAL Constipation 05/10/19 12:00 06/09/19 11:59 Temazepam (Restoril) 15 mg HSPRN PRN ORAL Insomnia 05/10/19 12:00 05/17/19 11:59 Zinc Oxide (Zinc Oxide) 1 applic BID TOPIC 05/12/19 18:00 06/11/19 13:44 05/15/19 17:39 Allergies: Coded Allergies: No Known Allergies (Unverified , 07/16/17) ROS Limited/Unobtainable: No Constitutional: Reports: no symptoms HEENT: Reports: no symptoms Cardiovascular: Reports: no symptoms Respiratory: Reports: no symptoms Gastrointestinal/Abdominal: Reports: abdominal pain Genitourinary: Reports: no symptoms Neurologic/Psychiatric: Reports: no symptoms Subjective 83 YO F admitted with fever. Now bilateral pneumonia and sepsis. Also anemia and pancreatitis. Cover For Int Marshal-Dr De La Cruz Objective Last Vital Signs Date Time Temp Pulse Resp B/P (MAP) Pulse Ox O2 Delivery O2 Flow Rate FiO2 05/15/19 16:00 98.1 80 18 135/78 (97) 98 05/15/19 09:00 Room Air 05/15/19 07:20 21 Laboratory Tests Test 05/15/19 07:10 White Blood Count 5.7 K/UL (4.8-10.8) Red Blood Count 3.22 M/UL (4.20-5.40) L Hemoglobin 9.1 G/DL (12.0-16.0) L Hematocrit 29.1 % (37.0-47.0) L Mean Corpuscular Volume 90 FL (80-99) Mean Corpuscular Hemoglobin 28.3 PG (27.0-31.0) Mean Corpuscular Hemoglobin Concent 31.3 G/DL (32.0-36.0) L Red Cell Distribution Width 19.6 % (11.6-14.8) H Platelet Count 228 K/UL (150-450) Mean Platelet Volume 5.7 FL (6.5-10.1) L Neutrophils (%) (Auto) 69.0 % (45.0-75.0) Lymphocytes (%) (Auto) 17.9 % (20.0-45.0) L Monocytes (%) (Auto) 5.5 % (1.0-10.0) Eosinophils (%) (Auto) 6.7 % (0.0-3.0) H Basophils (%) (Auto) 0.9 % (0.0-2.0) Sodium Level 144 MMOL/L (136-145) Potassium Level 3.8 MMOL/L (3.5-5.1) Chloride Level 105 MMOL/L (98-107) Carbon Dioxide Level 27 MMOL/L (21-32) Anion Gap 12 mmol/L (5-15) Blood Urea Nitrogen 44 mg/dL (7-18) H Creatinine 7.2 MG/DL (0.55-1.30) H Estimat Glomerular Filtration Rate mL/min (>60) Glucose Level 85 MG/DL (74-106) Calcium Level 9.9 MG/DL (8.5-10.1) Phosphorus Level 6.3 MG/DL (2.5-4.9) H Magnesium Level 2.6 MG/DL (1.8-2.4) H Total Bilirubin 0.4 MG/DL (0.2-1.0) Aspartate Amino Transf (AST/SGOT) 30 U/L (15-37) Alanine Aminotransferase (ALT/SGPT) 44 U/L (12-78) Alkaline Phosphatase 116 U/L (46-116) Total Protein 6.9 G/DL (6.4-8.2) Albumin 2.0 G/DL (3.4-5.0) L Globulin 4.9 g/dL Albumin/Globulin Ratio 0.4 (1.0-2.7) L Amylase Level 199 U/L (25-115) H Lipase 842 U/L (73-393) H Intake and Output 05/14/19 05/15/19 19:00 07:00 Intake Total 165 ml 195 ml Balance 165 ml 195 ml Intake Free Water 30 ml 90 ml Tube Feeding 35 ml 105 ml Blood Product 100 ml # Voids 4 3 # Bowel Movements 1 Objective PHYSICAL EXAMINATION: GENERAL: The patient is a well-developed and well-nourished slightly obese female, in no apparent distress. HEENT: Eyes, pupils are equal and responsive to light and accommodation. Extraocular movements are intact. NECK: Supple without lymphadenopathy. CHEST: Decreased breath sounds with crackles at bilateral bases. Otherwise, without wheezes bilaterally. ABDOMINAL: Soft, nontender, and nondistended. Positive bowel sounds. No evidence of hepatosplenomegaly. Currently, no rebound or guarding noted. EXTREMITIES: Negative for clubbing, cyanosis, or edema. There is bilateral uxeqb-dyx-wemz amputation. NEUROLOGIC: Cranial nerves II through XII are grossly intact without focal deficits. Assessment/Plan Assessment/Plan ASSESSMENT: This is an 83-year-old female. 1. Fever. 2. Bibasilar pneumonia. 3. Diabetes type 2. 4. Hypercholesterolemia. 5. Hypertension. 6. End-stage renal disease. 7. Gout. 8. Cerebrovascular disease, status post cerebrovascular accident. 9. Peripheral vascular disease. 10. Deep venous thrombosis. 11. Bilateral wkjkm-tzk-stnq amputation. 12. Sepsis-Staph species 13. Anemia TREATMENT: 1. Fever/bibasilar pneumonia. D/C Antibiotic per ID. An Infectious Disease consultation has been obtained with Dr Cardenas. We will follow recommendations of Infectious Disease. A Pulmonary consultation has been obtained with Dr. Rosemary Lui. 2. Diabetes type 2. The patient has been placed on a NovoLog sliding scale. 3. Hypercholesterolemia. Continue atorvastatin as above. 4. Hypertension. Continue hydralazine as above. 5. End-stage renal disease- hemodialysis 05/15/19. A Nephrology consultation has been obtained with Dr. Rich. 6. Gout. Continue allopurinol as above. 7. Cerebrovascular disease. The patient is status post CVA. 8. Peripheral vascular disease. The patient is status post bilateral kjmps-oij-[id number] amputation. 9. History of deep venous thrombosis. 10. Anemia workup in progress Barrett Cooney MD May 15, 2019 19:19
--- NOTE | 2019-05-15 19:21 | NUR ---
NURSE NOTES: Received patient from [facility]. Patient is currently receiving dialysis with dialysis nurse without signs of adverse reaction at the time of the hand-off. Pt laying comfortably watching TV on the bed with elevated HOB > 30 degrees. Patient is nonverbal but able to track with eyes. Pt is breathing comfortably, unlabored, and evenly without signs of respiratory distress, discomfort, or SOB. Pt has gtube feeding running at 35 cc/hr. 24 g Left hand IV intact. No pain is noted at the time of handoff. Bed is placed at the lowest level with alarms and brakes on. Call light is placed within reach for any assistance needed. Will continue to monitor.
[2019-05-15 20:00] VITALS: BP 141/62
--- NOTE | 2019-05-15 21:57 | NUR ---
NURSE NOTES: Report given to Ivan Rios from [facility]. Patient in stable condition. Breathing unlabored and evenly without signs of distress, discomfort, and SOB. Removed patient's left hand IV. Stopped patient's gtube feeding. ID band was removed and trashed to confidential bin. Patient has sacrococcyx stage 2 wound with clean dressing intact and dry. No pain noted at the time of transfer. Vital signs were stable. Patient left the hospital at 2157. Addendum: 05/15/19 at 2248 by Latrice Quijano RN NURSE NOTES: Report given to Ivan Rios from [facility]. Patient in stable condition. Breathing unlabored and evenly without signs of distress, discomfort, and SOB. Removed patient's left hand IV. Stopped patient's gtube feeding. ID band was removed and trashed to confidential bin. Patient has sacrococcyx stage 2 wound with clean dressing intact and dry. No pain noted at the time of transfer. Vital signs were stable. No belongings noted on the belongings paper. Patient left the hospital at 2157.
--- NOTE | 2019-05-17 16:39 | Discharge Summary ---
Discharge Summary Discharge Summary _ DATE OF ADMISSION: 05/10/2019 DATE OF DISCHARGE: 05/15/2019 DISCHARGED BY: Dr. De La Cruz REASON FOR ADMISSION: 83 years old female with past medical history of type 2 diabetes mellitus, end- stage renal disease on hemodialysis, hypertension, hypercholesterolemia, gout, cerebrovascular disease, status post CVA, peripheral vascular disease with bilateral AKA, history of DVT, was sent from the longterm [facility] for evaluation of fever. Patient by herself was unable to provide any information. According to the nursing staff at the facility, patient had fever for few days. Chest x-ray revealed bilateral bibasilar pneumonia. Patient was started on empiric Zosyn at the facility and subsequently was transferred to [facility] emergency room for further evaluation and management Upon evaluation in the emergency department patient was febrile, with fever of 101.1, tachypneic, pulse oximetry was stable on room air. Laboratory work-up revealed leukocytosis with WBC 13.1, anemia with hemoglobin 8.2 and hematocrit 28.8. Potassium 3.2. BUN 45, creatinine 5.4, consistent with known history of end-stage renal disease. Glucose 204. Lactic acid 3.5. Stable LFT. Troponin 0.034. Pro BNP 3668.EKG revealed sinus rhythm, no acute ischemic changes. Albumin 2.3. Lipase over 2000. Chest x-ray demonstrated mild central bronchial wall thickening and calcified granuloma in the left hilum. Patient subsequently was admitted for further management. CONSULTANTS: pulmonary Dr. Lui ID specialist Dr. Davis GI specialist Dr. Perales modeling agency manager Dr. Rich [facility] Dr. Machado [facility]: Patient admitted and started on IV fluids and empiric antibiotic. ID specialist followed. Antibiotics provided as per ID specialist recommendation Blood culture revealed 1 out of 4 Staphylococcus epidermidis. Repeated blood culture in 2 days revealed no evidence of growth. Per ID specialist, initial positive blood culture was likely contaminant. Chest x-ray revealed no definite acute process. Supplemental oxygen provided as needed to keep pulse oximetry above 92%. Pulmonary toilet provided. Ladle Handler closely followed. Strict aspiration precaution maintained. Leukocytosis and fever resolved. Patient completed antibiotics at the hospital. ID specialist recommended to keep patient off antibiotic and monitor closely. Hemodialysis provided as per modeling agency manager recommendations with close monitoring of volumes, renal parameters and electrolytes. Electrolytes corrected as needed. Blood pressure initially not controlled. Blood pressure regimen was optimized as per modeling agency manager to keep patient normotensive. Echocardiogram revealed preserved ejection fraction 55 to 60% with mild left ventricular hypertrophy. No evidence of wall motion abnormality. Grade 1 diastolic dysfunction. Right ventricular systolic pressure of 19. Blood sugar was managed with sliding scale of insulin. Hemoglobin and hematocrit were closely monitored with goal to keep hemoglobin above 7. Patient required transfusion of 1 unit of packed red blood cells while in the hospital. Prior to discharge hemoglobin 9.1, hematocrit 29.1. Stool for occult blood was negative x2. CEA minimally elevated . GI specialist closely followed. Lipase and amylase trended down prior to discharge amylase 189, lipase 842. Pain management was addressed as needed. Abdominal ultrasound demonstrated cholelithiasis and medical renal disease. No hydronephrosis. GI specialist recommended to hold EGD and colonoscopy for now , given stool OB being negative and hemoglobin and hematocrit stabilized. G-tube feeding continued with formula as recommended by registered dietitian. G-tube flushes provided. Strict aspiration precaution maintained. DVT prophylaxis provided. Supportive care provided. Bowel regimen instituted. Patient presented with multiply full-thickness pressure injuries right, left buttocks , left ischium and sacral. Wound care provided as per surgeon recommendation. Continue wound care at the facility. Leukocytosis and fever resolved. Blood pressure stabilized. Question patient clinically stabilized and was ready for transfer back to longterm facility for continuation of care FINAL DIAGNOSES: Fever, lactic acidosis, possible sepsis Probably pneumonia Pancreatitis End-stage renal disease, on hemodialysis Hypertension Diabetes Dysphagia , G-tube feeding Anemia of chronic kidney disease Hypercholesterolemia Cerebrovascular disease , status post CVA Peripheral vascular disease with bilateral above-knee amputation Anemia DISCHARGE MEDICATIONS: See Medication Reconciliation list. DISCHARGE INSTRUCTIONS: Patient was discharged to the longterm facility. Follow up with medical doctor at the facility. I have been assigned to dictate discharge summary for this account. I was not involved in the patient's management. Mai De NP May 17, 2019 16:39
== END 2019-05-15 21:57 | DRG 871 ==
LOC: EDBD 08:52 → EMR 09:05 → 4E 09:38 → EDBEDREQ 09:44
PROC: 30233N1 Transfusion of Nonautologous Red Blood Cells into Peripheral Vein, Percutaneous Approach (ICD-10-PCS; principal; 2019-05-11)
DX: A41.9 Sepsis, unspecified organism (principal); N18.6 End stage renal disease; K85.90 Acute pancreatitis without necrosis or infection, unspecified; J18.9 Pneumonia, unspecified organism; K92.2 Gastrointestinal hemorrhage, unspecified; I12.0 Hypertensive chronic kidney disease with stage 5 chronic kidney disease or end stage renal disease; Z43.1 Encounter for attention to gastrostomy; Z99.2 Dependence on renal dialysis; Z88.6 Allergy status to analgesic agent; E78.00 Pure hypercholesterolemia, unspecified; I10 Essential (primary) hypertension; M10.9 Gout, unspecified; Z86.73 Personal history of transient ischemic attack (TIA), and cerebral infarction without residual deficits; Z86.718 Personal history of other venous thrombosis and embolism; Z89.612 Acquired absence of left leg above knee; Z89.611 Acquired absence of right leg above knee; E11.22 Type 2 diabetes mellitus with diabetic chronic kidney disease; R13.10 Dysphagia, unspecified; D63.1 Anemia in chronic kidney disease; Z22.322 Carrier or suspected carrier of Methicillin resistant Staphylococcus aureus
CPT/HCPCS: 36415; 71045; 76700; 80048; 80053; 80061; 80069; 80202; 82150; 82270; 82378; 82550; 82553; 82607; 82728; 82746; 83540; 83550; 83605; 83690; 83735; 83880; 84100; 84439; 84443; 84484; 84550; 85007; 85025; 85044; 85610; 85730; 86706; 86707; 86850; 86900; 86901; 86920; 87040; 87081; 87181; 92610; 93005; 93306; 94664; 96365; 99285; J8499

== ENCOUNTER 2019-06-14 13:33 | Inpatient (IN) | payer MEDICARE, MEDICAID ==
[~2019-06-14] VITALS: Ht 91.4 cm; Wt 80.3 kg
[2019-06-14] VITALS (12 sets, daily range): BP systolic 84–138; BP diastolic 44–80
[~2019-06-14 13:33] MED LIST changes: +ALBUTEROL2.5 MG/3 M INH; +CULTURELLE1 TAB GT; +FOLIC ACID1 MG GT; -FOLIC ACID1 MG ORAL; +HYDRALAZINE HCL25 M1 GT; -HYDRALAZINE HCL25 M1 ORAL; +MIDODRINE HCL10 MG GT; +MIRALAX17 G2 GT; +MULTIVITAMINS1 EAC2 GT; +NEPHROVITE1 TAB GT; +PHOS-NAK PACKE1 EAC1 GT; +ZEGERID 40 MG1 EAC1 GT; +ZOSYN 3.373.375 GM/1 IVPB
[2019-06-14] MEDS ORDERED: UNOBMED (13:41)
[2019-06-14] MEDS ORDERED: Pantoprazole Inj IVP ONE (13:45)
[2019-06-14] MEDS ORDERED: ALPHAGAN1 DROP (14:18)
[2019-06-14] MEDS ORDERED: ALPHAGAN P5 ML OP (14:18)
[2019-06-14] MEDS ORDERED: TIMOPTIC 0.5%1 DROP BOTH EYES (14:18)
[2019-06-14 14:21] LABS: BASOPHILS % (AUTO) 0.3 % (0.0-2.0); EOSINOPHILS % (AUTO) 2.9 % (0.0-3.0); HEMATOCRIT 31.2 % (37.0-47.0); HEMOGLOBIN 9.8 G/DL (12.0-16.0); LYMPHOCYTES % (AUTO) 16.4 % (20.0-45.0); MEAN CORPUSCULAR VOLUME 95 FL (80-99); NEUTROPHILS % (AUTO) 77.4 % (45.0-75.0); PLATELET COUNT 376 K/UL (150-450); RED CELL DISTRIBUTION WIDTH 16.9 % (11.6-14.8); WHITE BLOOD COUNT 17.3 K/UL (4.8-10.8)
--- NOTE | 2019-06-14 14:25 | Emergency Room Report ---
History of Present Illness General Chief Complaint: Upper Respiratory Illness Source: Medical Record Present Illness HPI Patient is an 84-year-old female brought in by EMS after increased hematemesis. Patient had been noted to have increased bloody secretions from her gastrostomy tube. Patient is noted to have pulsed which states that she is DNR however she is okay to have short-term intubation if needed. Patient had been noted to have increased difficulty with respirations. Allergies: Coded Allergies: GABAPENTIN (Unverified Allergy, Unknown, 06/14/19) Patient History Past Medical History: see triage record Reviewed Nursing Documentation: PMH: Agreed; PSxH: Agreed Nursing Documentation-PM Past Medical History: No History, Except For Hx Cardiac Problems: Yes - PNA, Anemia, Hyperlipidemia Hx Hypertension: Yes Hx Diabetes: Yes Hx Cancer: No Hx Gastrointestinal Problems: Yes - GERD Hx Dialysis: Yes - ESRD Hx Cerebrovascular Accident: Yes Review of Systems All Other Systems: limited Physical Exam Vital Signs Date Time Temp Pulse Resp B/P (MAP) Pulse Ox O2 Delivery O2 Flow Rate FiO2 06/14/19 13:29 99.1 97 18 138/66 (90) 98 06/14/19 13:52 Facial 30 Sp02 EP Interpretation: reviewed, normal General Appearance: alert, severe distress, Chronically Ill Head: atraumatic ENT: normal ENT inspection, hearing grossly normal, normal voice Neck: normal inspection, supple, no bony tend, limited range of motion Respiratory: normal inspection, normal breath sounds, no respiratory distress, no retraction, respiratory distress, accessory muscle use Cardiovascular #1: regular rate, rhythm, no edema Gastrointestinal: non tender, soft, no guarding, no hernia, other - bloody drainage from Gtube Musculoskeletal: decreased range of motion Neurologic: alert, responsive, aphasia Psychiatric: mood/affect normal Skin: no rash Medical Decision Making Diagnostic Impression: Primary Impression: GI bleed Additional Impression: ESRD (end stage renal disease) on dialysis ER Course Patient presented for increased hematemesis. Differential diagnosis include was not limited to gastritis, ulcer, coagulopathy, esophageal tear among others. Because of complexity of patient's case laboratory testing and imaging studies were ordered. Patient was noted to have some bloody secretions from her G-tube as well as some difficulty breathing. Chest x-ray one view interpreted by me showed normal cardiac size without evident infiltrate. Patient started on IV Protonix as well as BiPAP due to some respiratory difficulty. Dr. Castro De La Cruz was contacted for inpatient management. Dr. Perales was contacted for GI consult. Labs Test 06/14/19 13:40 06/14/19 14:25 06/14/19 14:45 06/15/19 04:13 Prothrombin Time 10.7 SEC (9.30-11.50) Prothromb Time International Ratio 1.0 (0.9-1.1) Activated Partial Thromboplast Time 31 SEC (23-33) Creatine Kinase MB 0.5 NG/ML (0.0-3.6) Creatine Kinase MB Relative Index 3.8 Arterial Blood pH 7.407 (7.350-7.450) Arterial Blood Partial Pressure CO2 43.7 mmHg (35.0-45.0) Arterial Blood Partial Pressure O2 94.3 mmHg (75.0-100.0) Arterial Blood HCO3 26.9 mmol/L (22.0-26.0) Arterial Blood Oxygen Saturation 96.8 % (95-100) Arterial Blood Base Excess 1.9 (-2-2) Gus Test Positive Lactic Acid Level 1.70 mmol/L (0.66-2.22) Lipase 317 U/L (73-393) Test 06/15/19 04:15 06/15/19 11:15 White Blood Count 24.2 K/UL (4.8-10.8) Red Blood Count 3.35 M/UL (4.20-5.40) Hemoglobin 10.0 G/DL (12.0-16.0) Hematocrit 32.0 % (37.0-47.0) Mean Corpuscular Volume 96 FL (80-99) Mean Corpuscular Hemoglobin 29.8 PG (27.0-31.0) Mean Corpuscular Hemoglobin Concent 31.2 G/DL (32.0-36.0) Red Cell Distribution Width 17.3 % (11.6-14.8) Platelet Count 385 K/UL (150-450) Mean Platelet Volume 5.8 FL (6.5-10.1) Neutrophils (%) (Auto) % (45.0-75.0) Lymphocytes (%) (Auto) % (20.0-45.0) Monocytes (%) (Auto) % (1.0-10.0) Eosinophils (%) (Auto) % (0.0-3.0) Basophils (%) (Auto) % (0.0-2.0) Differential Total Cells Counted 100 Neutrophils % (Manual) 88 % (45-75) Lymphocytes % (Manual) 3 % (20-45) Monocytes % (Manual) 2 % (1-10) Eosinophils % (Manual) 2 % (0-3) Basophils % (Manual) 0 % (0-2) Band Neutrophils 5 % (0-8) Platelet Estimate Adequate Platelet Morphology Normal Anisocytosis 1+ Sodium Level 143 MMOL/L (136-145) Potassium Level 4.3 MMOL/L (3.5-5.1) Chloride Level 101 MMOL/L (98-107) Carbon Dioxide Level 25 MMOL/L (21-32) Anion Gap 17 mmol/L (5-15) Blood Urea Nitrogen 117 mg/dL (7-18) Creatinine 10.3 MG/DL (0.55-1.30) Estimat Glomerular Filtration Rate mL/min (>60) Glucose Level 152 MG/DL (74-106) Hemoglobin A1c 5.2 % (4.3-6.0) Uric Acid 9.1 MG/DL (2.6-7.2) Calcium Level 9.4 MG/DL (8.5-10.1) Phosphorus Level 4.4 MG/DL (2.5-4.9) Magnesium Level 2.5 MG/DL (1.8-2.4) Iron Level 18 ug/dL (50-175) Total Iron Binding Capacity 72 ug/dL (250-450) Percent Iron Saturation 25 % (15-50) Unsaturated Iron Binding 54 ug/dL (112-346) Ferritin 1372 NG/ML (8-388) Total Bilirubin 1.2 MG/DL (0.2-1.0) Direct Bilirubin 0.7 MG/DL (0.0-0.3) Gamma Glutamyl Transpeptidase 153 U/L (5-85) Aspartate Amino Transf (AST/SGOT) 75 U/L (15-37) Alanine Aminotransferase (ALT/SGPT) 40 U/L (12-78) Alkaline Phosphatase 125 U/L (46-116) Ammonia 27 umol/L (11-32) Total Creatine Kinase 39 U/L (26-308) Troponin I 0.015 ng/mL (0.000-0.056) C-Reactive Protein, Quantitative 16.6 mg/dL (0.00-0.90) Pro-B-Type Natriuretic Peptide 6411 pg/mL (0-125) Total Protein 7.2 G/DL (6.4-8.2) Albumin 2.5 G/DL (3.4-5.0) Globulin 4.7 g/dL Albumin/Globulin Ratio 0.5 (1.0-2.7) Triglycerides Level 131 MG/DL (30-150) Cholesterol Level 79 MG/DL (< 200) LDL Cholesterol 40 mg/dL (<100) HDL Cholesterol 19 MG/DL (40-60) Cholesterol/HDL Ratio 4.2 (3.3-4.4) Vitamin B12 Level 889 PG/ML (193-986) Folate 84.8 NG/ML (8.6-58.9) Thyroid Stimulating Hormone (TSH) 3.616 uiU/mL (0.358-3.740) Random Vancomycin Level 13.7 ug/mL HIV (1&2) Antibody Rapid Negative (NEGATIVE) Last Vital Signs Date Time Temp Pulse Resp B/P (MAP) Pulse Ox O2 Delivery O2 Flow Rate FiO2 06/14/19 13:59 116 29 30 06/14/19 13:59 99.1 138/66 100 Bi-pap Status: unchanged Disposition: ADMITTED INPATIENT Condition: Stable Bar Robertson MD Jun 14, 2019 14:25
[2019-06-14 14:28] LABS: ANION GAP 11 mmol/L (5-15); BLOOD UREA NITROGEN 103 mg/dL (7-18); CALCIUM 9.4 MG/DL (8.5-10.1); CARBON DIOXIDE 32 MMOL/L (21-32); CHLORIDE 99 MMOL/L (98-107); CREATININE 9.3 MG/DL (0.55-1.30); POTASSIUM 4.5 MMOL/L (3.5-5.1); SODIUM 142 MMOL/L (136-145)
--- NOTE | 2019-06-14 14:32 | Diagnostic Imaging Report ---
Indication: Dyspnea Comparison: 05/10/2019 A single view chest radiograph was obtained. Findings: Calcifications within the hilum consistent with old granulomatous disease. Cardiomegaly is present. There is a right innominate venous stent again noted. Bones are osteopenic. IMPRESSION: No acute disease or significant change.
[2019-06-14 14:43] LABS: ALANINE AMINOTRANSFERASE 28 U/L (12-78); ALBUMIN 2.5 G/DL (3.4-5.0); ALBUMIN/GLOBULIN RATIO 0.5 (1.0-2.7); ALKALINE PHOSPHATASE 146 U/L (46-116); ASPARTATE AMINO TRANSFERASE 45 U/L (15-37); BILIRUBIN,TOTAL 0.6 MG/DL (0.2-1.0); CKMB 0.5 NG/ML (0.0-3.6); CREATINE KINASE 13 U/L (26-308); PHOSPHORUS 5.2 MG/DL (2.5-4.9)
[2019-06-14] MEDS ORDERED: Piperacillin/Tazobactam 3.375 GM in NS 110 ML IVPB ONE (15:00)
[2019-06-14] MEDS ORDERED: Morphine Sulfate 4mg/ml Inj (IV USE ONLY) IVP PRN (17:45)
[2019-06-14] MEDS ORDERED: HydrALAZINE 25mg tab ORAL PRN ×2 (17:45→21:00)
[2019-06-14] MEDS ORDERED: Albuterol/Ipratropium 3ml neb HHN PRN (17:45)
[2019-06-14] MEDS ORDERED: LORazepam Inj 2mg/ml 1ml IV PRN (17:45)
--- NOTE | 2019-06-14 18:21 | General Progress Note ---
Assessment/Plan Assessment/Plan: 1. full dictation to follow. Subjective Date patient seen: Jun 14, 2019 Time patient seen: 18:00 Allergies: Coded Allergies: GABAPENTIN (Unverified Allergy, Unknown, 06/14/19) Objective Last 24 Hour Vital Signs Date Time Temp Pulse Resp B/P (MAP) Pulse Ox O2 Delivery O2 Flow Rate FiO2 06/14/19 17:46 2.0 06/14/19 17:46 Nasal Cannula 2.0 06/14/19 17:04 99.1 97 26 105/52 100 Bi-pap 30 06/14/19 15:32 99.1 97 26 105/52 100 Bi-pap 30 06/14/19 14:55 100 35 100 Facial 30 06/14/19 14:55 30 06/14/19 14:38 99.1 102 28 127/69 100 Bi-pap 30 06/14/19 13:59 116 29 30 06/14/19 13:59 99.1 117 29 138/66 100 Bi-pap 30 06/14/19 13:58 116 29 100 Bi-Pap 30 06/14/19 13:52 115 29 100 Facial 30 06/14/19 13:29 99.1 97 18 138/66 (90) 98 Laboratory Tests 06/14/19 13:40: White Blood Count 17.3H, Red Blood Count 3.30L, Hemoglobin 9.8L, Hematocrit 31.2L, Mean Corpuscular Volume 95, Mean Corpuscular Hemoglobin 29.8, Mean Corpuscular Hemoglobin Concent 31.5L, Red Cell Distribution Width 16.9H, Platelet Count 376, Mean Platelet Volume 5.9L, Neutrophils (%) (Auto) 77.4H, Lymphocytes (%) (Auto) 16.4L, Monocytes (%) (Auto) 3.0, Eosinophils (%) (Auto) 2.9, Basophils (%) (Auto) 0.3, Prothrombin Time 10.7, Prothromb Time International Ratio 1.0, Activated Partial Thromboplast Time 31, Sodium Level 142, Potassium Level 4.5, Chloride Level 99, Carbon Dioxide Level 32, Anion Gap 11, Blood Urea Nitrogen 103H, Creatinine 9.3H, Estimat Glomerular Filtration Rate , Glucose Level 136H, Lactic Acid Level 2.10H, Calcium Level 9.4, Phosphorus Level 5.2H, Magnesium Level 2.7H, Total Bilirubin 0.6, Aspartate Amino Transf (AST/SGOT) 45H, Alanine Aminotransferase (ALT/SGPT) 28, Alkaline Phosphatase 146H, Total Creatine Kinase 13L, Creatine Kinase MB 0.5, Creatine Kinase MB Relative Index 3.8, Troponin I 0.042, Pro-B-Type Natriuretic Peptide 5639H, Total Protein 7.1, Albumin 2.5L, Globulin 4.6, Albumin/Globulin Ratio 0.5L 06/14/19 14:25: Arterial Blood pH 7.407, Arterial Blood Partial Pressure CO2 43.7, Arterial Blood Partial Pressure O2 94.3, Arterial Blood HCO3 26.9H, Arterial Blood Oxygen Saturation 96.8, Arterial Blood Base Excess 1.9, Gus Test Positive 06/14/19 14:45: Lactic Acid Level 1.70 Height (Feet): 3 Height (Inches): 0.00 Weight (Pounds): 249 Pam Alcantar MD Jun 14, 2019 18:21
--- NOTE | 2019-06-14 18:45 | Consultation ---
DATE OF CONSULTATION: 06/14/2019 CHIEF COMPLAINT: GI bleeding. HISTORY OF PRESENT ILLNESS: Most of history per chart. The patient is 83-year-old female with numerous medical problems currently lives in a [facility] was transferred to the hospital with upper GI bleeding and hematemesis. Currently, the patient is on a BiPAP. I cannot get any history from her . PAST HISTORY: 1. Type 2 diabetes. 2. End-stage renal disease on hemodialysis. 3. Hypercholesterolemia. 4. Hypertension. 5. Gout. 6. CVA. 7. Peripheral vascular disease status post bilateral extremity amputations. 8. History of DVT. 9. History of dysphagia with G-tube. PAST SURGICAL HISTORY: 1. Right arm AV graft placement for dialysis. 2. Bilateral above the knee amputations. MEDICATIONS: Please see medication reconciliation list. ALLERGIES: Gabapentin. SOCIAL HISTORY: Currently lives in a [facility]. No history of tobacco, alcohol, or drug abuse. REVIEW OF SYSTEMS: Unable to obtain. PHYSICAL EXAMINATION: VITAL SIGNS: Temperature is 99.1, pulse 97, respirations 26, and blood pressure 105/52. HEENT: Normocephalic and atraumatic. Sclerae anicteric. NECK: Supple. No evidence of lymphadenopathy. CARDIOVASCULAR: Tachy. Regular rate. Plus S1 and S2. LUNGS: Decreased breath sounds bilaterally baed on the supine exam. ABDOMEN: Soft and nontender. No rebound. No guarding. No peritoneal sign. EXTREMITIES: Bilateral amputees. LABORATORY AND DIAGNOSTIC DATA: White count 17, hemoglobin 9.8, hematocrit 31, platelet count is 376. Chem, sodium 142, potassium 4.5, BUN is 103, creatinine is 9.3 ASSESSMENT AND PLAN: This is a 84-year-old patient with acute upper GI bleeding, renal failure, dysphagia with G-tube. PLAN: 1. Start the patient on Protonix drip. 2. Monitor hemoglobin and hematocrit. Transfuse as needed to keep hemoglobin above 7. 3. The patient at one point will need endoscopy but at this time the patient is unstable. She is on BiPAP. There is a order for DNR but apparently she is agreeing with short-term respiratory intubation. If the patient is intubated overnight, we will plan to do an endoscopy first thing tomorrow morning. If not then we are going to monitor hemoglobin and hematocrit, transfuse her as needed. Continue on Protonix drip and do endoscopy when she is more stable. Ezequiel Perales M.D. DR: Paolo JOB#: [id number] CC:
[2019-06-14] MEDS: Pantoprazole 80 MG in NS 250 ML IV SCH (18:52)
--- NOTE | 2019-06-14 19:07 | History & Physical ---
History and Physical History & Physicial Dictated for Int Med-Dr De La Cruz no. [id number]. Barrett Cooney MD Jun 14, 2019 19:07
--- NOTE | 2019-06-14 19:53 | Infectious Diseases Prog Note ---
Assessment/Plan Problems: (1) Cough with hemoptysis Assessment & Plan: with H/O TB , will send sputum for AFB smear and culture , and PCR MTB . keep in air born isolation pending work up . no need to check T spot since will be positive due to prior H/O TB (2) Decubitus skin ulcer Assessment & Plan: with maceration and necrosis , possibly infected, recommend surgical eval and off loading with local wound care as needed (3) Sepsis Assessment & Plan: due to the above with leukocytosis and fever, will start zosyn and vancomycin empirically pending cultures (4) GI bleed Assessment & Plan: monitor H/H , transfuse as needed, GI eval for source control (5) ESRD (end stage renal disease) on dialysis Assessment & Plan: continue HD as per renal , antibiotics renally dosed as per pharmacy (6) Anemia Assessment & Plan: due to the above , transfuse blood as needed, GI eval for source control Subjective Constitutional: Reports: anorexia Allergies: Coded Allergies: GABAPENTIN (Unverified Allergy, Unknown, 06/14/19) Objective Vital Signs Last 24 Hour Vital Signs Date Time Temp Pulse Resp B/P (MAP) Pulse Ox O2 Delivery O2 Flow Rate FiO2 06/14/19 19:30 97 Nasal Cannula 2.0 28 06/14/19 18:30 96 23 121/47 (71) 100 06/14/19 18:00 96 21 105/49 (67) 100 06/14/19 17:46 2.0 06/14/19 17:46 Nasal Cannula 2.0 06/14/19 17:30 96 26 117/51 (73) 100 06/14/19 17:04 99.1 97 26 105/52 100 Bi-pap 30 06/14/19 17:00 99.3 95 26 84/65 (71) 100 06/14/19 15:32 99.1 97 26 105/52 100 Bi-pap 30 06/14/19 14:55 100 35 100 Facial 30 06/14/19 14:55 30 06/14/19 14:38 99.1 102 28 127/69 100 Bi-pap 30 06/14/19 13:59 116 29 30 06/14/19 13:59 99.1 117 29 138/66 100 Bi-pap 30 06/14/19 13:58 116 29 100 Bi-Pap 30 06/14/19 13:52 115 29 100 Facial 30 06/14/19 13:29 99.1 97 18 138/66 (90) 98 Height (Feet): 3 Height (Inches): 0.00 Weight (Pounds): 249 Laboratory Tests Test 06/14/19 13:40 06/14/19 14:25 06/14/19 14:45 06/14/19 18:35 White Blood Count 17.3 K/UL (4.8-10.8) H Red Blood Count 3.30 M/UL (4.20-5.40) L Hemoglobin 9.8 G/DL (12.0-16.0) L Hematocrit 31.2 % (37.0-47.0) L Mean Corpuscular Volume 95 FL (80-99) Mean Corpuscular Hemoglobin 29.8 PG (27.0-31.0) Mean Corpuscular Hemoglobin Concent 31.5 G/DL (32.0-36.0) L Red Cell Distribution Width 16.9 % (11.6-14.8) H Platelet Count 376 K/UL (150-450) Mean Platelet Volume 5.9 FL (6.5-10.1) L Neutrophils (%) (Auto) 77.4 % (45.0-75.0) H Lymphocytes (%) (Auto) 16.4 % (20.0-45.0) L Monocytes (%) (Auto) 3.0 % (1.0-10.0) Eosinophils (%) (Auto) 2.9 % (0.0-3.0) Basophils (%) (Auto) 0.3 % (0.0-2.0) Prothrombin Time 10.7 SEC (9.30-11.50) Prothromb Time International Ratio 1.0 (0.9-1.1) Activated Partial Thromboplast Time 31 SEC (23-33) Sodium Level 142 MMOL/L (136-145) Potassium Level 4.5 MMOL/L (3.5-5.1) Chloride Level 99 MMOL/L (98-107) Carbon Dioxide Level 32 MMOL/L (21-32) Anion Gap 11 mmol/L (5-15) Blood Urea Nitrogen 103 mg/dL (7-18) H Creatinine 9.3 MG/DL (0.55-1.30) H Estimat Glomerular Filtration Rate mL/min (>60) Glucose Level 136 MG/DL (74-106) H Lactic Acid Level 2.10 mmol/L (0.4-2.0) H 1.70 mmol/L (0.66-2.22) Calcium Level 9.4 MG/DL (8.5-10.1) Phosphorus Level 5.2 MG/DL (2.5-4.9) H Magnesium Level 2.7 MG/DL (1.8-2.4) H Total Bilirubin 0.6 MG/DL (0.2-1.0) Aspartate Amino Transf (AST/SGOT) 45 U/L (15-37) H Alanine Aminotransferase (ALT/SGPT) 28 U/L (12-78) Alkaline Phosphatase 146 U/L (46-116) H Total Creatine Kinase 13 U/L (26-308) L Creatine Kinase MB 0.5 NG/ML (0.0-3.6) Creatine Kinase MB Relative Index 3.8 Troponin I 0.042 ng/mL (0.000-0.056) 0.038 ng/mL (0.000-0.056) Pro-B-Type Natriuretic Peptide 5639 pg/mL (0-125) H Total Protein 7.1 G/DL (6.4-8.2) Albumin 2.5 G/DL (3.4-5.0) L Globulin 4.6 g/dL Albumin/Globulin Ratio 0.5 (1.0-2.7) L Arterial Blood pH 7.407 (7.350-7.450) Arterial Blood Partial Pressure CO2 43.7 mmHg (35.0-45.0) Arterial Blood Partial Pressure O2 94.3 mmHg (75.0-100.0) Arterial Blood HCO3 26.9 mmol/L (22.0-26.0) H Arterial Blood Oxygen Saturation 96.8 % (95-100) Arterial Blood Base Excess 1.9 (-2-2) Gus Test Positive Current Medications Medications (Trade) Dose Ordered Sig/Selene Route PRN Reason Start Time Stop Time Status Last Admin Dose Admin Acetaminophen (Tylenol) 650 mg Q4H PRN GT Fever 06/14/19 17:45 07/14/19 17:44 Albumin Human 100 ml @ 100 mls/hr ONCE ONCE IV 06/14/19 19:30 06/14/19 20:29 Albuterol/ Ipratropium (Albuterol/ Ipratropium) 3 ml Q4H PRN HHN Shortness of Breath 06/14/19 17:45 06/19/19 17:44 Hydralazine HCl (Apresoline) 25 mg PRN PRN ORAL For High Blood Pressure 06/14/19 17:45 07/14/19 17:44 UNV Insulin Aspart (NovoLOG) BEFORE MEALS AND HS SUBQ 06/14/19 21:00 07/14/19 20:59 Lorazepam (Ativan 2mg/ml 1ml) 2 mg Q4H PRN IV For Anxiety 06/14/19 17:45 06/21/19 17:44 Morphine Sulfate (Morphine Sulfate) 4 mg Q4H PRN IVP For Pain 06/14/19 17:45 06/21/19 17:44 Ondansetron HCl (Zofran) 4 mg Q6H PRN IVP Nausea & Vomiting 06/14/19 17:45 07/14/19 17:44 Pantoprazole 80 mg/Sodium Chloride 250 ml @ 25 mls/hr Q10H IV 06/14/19 17:00 07/14/19 16:59 06/14/19 18:52 Piperacillin Sod/ Tazobactam Sod 2.25 gm/Dextrose 55 ml @ 110 mls/hr Q8HR IVPB 06/14/19 22:00 06/19/19 21:59 UNV Sodium Chloride 1,000 ml @ 30 mls/hr Q24H IV 06/14/19 17:42 07/14/19 17:41 06/14/19 18:52 Vancomycin HCl (Vanco rx to dose) 1 ea DAILY PRN MISC Per rx protocol 06/14/19 19:45 07/14/19 19:44 UNV Morteza Castillo M.D. Jun 14, 2019 19:53
[2019-06-14] MEDS ORDERED: Zinc Oxide Oint 2oz TOPIC SCH (20:00)
[2019-06-14] MEDS ORDERED: Vancomycin 1.25gm Premix IVPB ONE (21:00)
[2019-06-14] MEDS: NovoLOG Insulin Flexpen SUBQ SCH (21:00)
[2019-06-14] MEDS: Piperacillin/Tazobactam 2.25 GM in D5W 55 ML IVPB SCH (21:45)
--- NOTE | 2019-06-14 22:30 | History and Physical Report ---
DATE OF ADMISSION: 06/14/2019 CHIEF COMPLAINT: The patient is an 84-year-old female, who presents with a chief complaint of hematemesis. HISTORY OF PRESENT ILLNESS: The patient is a resident of [facility]. The patient was admitted to [facility] in April of 2019. Please see history and physical and discharge summary dictated at that time. According to staff at [facility], the patient had several episodes of hematemesis. There were bloody secretions noted in her gastrostomy tube as well. The patient presented to [place] emergency room. The patient was admitted for hematemesis to rule out acute gastrointestinal hemorrhage. PAST MEDICAL HISTORY: Significant for: 1. Type 2 diabetes. 2. End-stage renal disease, on hemodialysis. 3. Hypercholesterolemia. 4. Hypertension. 5. Gout. 6. Cerebrovascular disease, status post cerebrovascular accident. 7. Peripheral vascular disease. 8. History of deep venous thrombosis. PAST SURGICAL HISTORY: Significant for: 1. Right arm arteriovenous graft for dialysis. 2. Bilateral [id number] amputation. CURRENT MEDICATIONS: 1. Tylenol 650 mg per G-tube q.4 hours p.r.n. 2. Albuterol nebulized q.4 hours p.r.n. 3. Allopurinol 100 mg per G-tube daily. 4. Brimonidine tartrate 1 drop to both eyes twice daily. 5. Procrit 10,000 units subcutaneously every Wednesday, Wednesday, and Wednesday. 6. Pepcid 20 mg per G-tube at bedtime. 7. Folic acid 1 mg per G-tube daily. 8. Hydralazine 25 mg per G-tube q.6 hours p.r.n. 9. [place] 5/325 mg one tablet per G-tube p.o. q.r h. p.r.n. 10. NovoLog sliding scale. 11. Lactobacillus 2 tablets per G-tube twice daily. 12. Prevacid 30 mg per G-tube daily. 13. Midodrine 10 mg per G-tube daily. 14. Multivitamin 1 tablet per G-tube daily. 15. Omeprazole 40 mg per G-tube twice daily. 16. Pravachol 40 mg per G-tube at bedtime. 17. Timolol 1 drop to both eyes twice a day. 18. Vitamin B complex per G-tube daily. 19. Zinc sulfate 220 mg per G-tube daily. 20. Ambien 5 mg per G-tube at bedtime. ALLERGIES: Gabapentin. SOCIAL HISTORY: The patient is a . The patient is a resident of [facility]. The patient denies tobacco or alcohol use. REVIEW OF SYSTEMS: Unable to assess secondary to the patient's mental status. PHYSICAL EXAMINATION: VITAL SIGNS: Temperature 99.3, pulse 95, respirations 26, and blood pressure 84/65. GENERAL: The patient is a well-developed and well-nourished female, in no apparent distress. HEENT: Eyes, pupils are equal and responsive to light and accommodation. Extraocular movements are intact. NECK: Supple without lymphadenopathy. CHEST: Lungs are clear to auscultation without wheezes or rales. CARDIOVASCULAR: Regular rhythm and rate. S1 and S2 are normal without murmurs, rubs, or gallops. ABDOMEN: Soft, nontender, and nondistended. Positive bowel sounds. No evidence of hepatosplenomegaly. Currently, no rebound or guarding noted. EXTREMITIES: Bilateral [id number]-[id number] amputation as above. Otherwise, without clubbing, cyanosis, or edema. RECTAL/GENITAL: Not performed. NEUROLOGIC: Cranial nerves II through XII are grossly intact without focal deficits. LABORATORY STUDIES: WBC 17.2, hemoglobin 9.8, hematocrit 31.2, and platelets 376,000. Sodium 142, potassium 4.5, chloride 99, CO2 32, BUN 103, creatinine 199.3, and glucose 136. BNP elevated at 5639. Total CK normal at 13. Troponin normal at 0.042. Protime 10.7, INR 1.0, and PTT 31. Chest x-ray was reported as no acute disease. ASSESSMENT: This is an 84-year-old female. 1. Hematemesis. 2. Upper gastrointestinal hemorrhage. 3. Diabetes type 2. 4. End-stage renal disease, on hemodialysis. 5. Hypercholesterolemia. 6. Hypertension. 7. Gout. 8. Cerebrovascular disease. 9. History of cerebrovascular accident. 10. Peripheral vascular disease. 11. History of deep venous thrombosis. TREATMENT: 1. Hematemesis/upper gastrointestinal hemorrhage. A Gastroenterology consultation has been obtained with Dr. Ezequiel Perales. We will follow recommendations of Gastroenterology. The patient may require endoscopy during this hospitalization. The patient has been typed and crossed for 2 units of packed RBCs for possible transfusion. 2. End-stage renal, disease on hemodialysis. A Nephrology consultation has been obtained with Dr. Rich. Follow recommendations of Dr. Rich for hemodialysis. 3. Hypercholesteremia. Continue atorvastatin as above. 4. Hypertension. Continue hydralazine as above. 5. Gout. Continue allopurinol as above. 6. Cerebrovascular disease, status post cerebrovascular accident. 7. Peripheral vascular disease. 8. History of deep venous thrombosis. 9. Glaucoma. Barrett Cooney M.D. DR: ANN JOB#: [id number] CC:
--- NOTE | 2019-06-14 22:51 | Diagnostic Imaging Report ---
Indication: Dyspnea Comparison: 06/14/2019 at 14:07 A single view chest radiograph was obtained. Findings: There is no change. Lungs remain clear and hypoinflated. Heart size is stable. IMPRESSION: No change
[2019-06-15] VITALS (58 sets, daily range): BP systolic 15–144; BP diastolic 25–78
[2019-06-15] MEDS: Acetaminophen 650mg/20.3ml GT PRN (01:12)
[2019-06-15] MEDS ORDERED: Levophed 4mg/4mL Inj IV ONE (03:12)
[2019-06-15] MEDS: Pantoprazole 80 MG in NS 250 ML IV SCH ×2 (03:36→14:19)
[2019-06-15 05:23] LABS: MEAN CORPUSCULAR VOLUME 96 FL (80-99); PLATELET COUNT 385 K/UL (150-450); RED BLOOD COUNT 3.35 M/UL (4.20-5.40); RED CELL DISTRIBUTION WIDTH 17.3 % (11.6-14.8)
[2019-06-15 05:36] LABS: WHITE BLOOD COUNT 24.2 K/UL (4.8-10.8)
--- NOTE | 2019-06-15 05:45 | Emergency Room Report ---
History of Present Illness General Chief Complaint: Upper Respiratory Illness Source: Medical Record Present Illness HPI 84-year-old female in the ICU, I was called to bedside for emergent placement, patient was hypotensive, tachycardic, patient in septic shock Allergies: Coded Allergies: GABAPENTIN (Unverified Allergy, Unknown, 06/14/19) Nursing Documentation-[facility] Past Medical History: No History, Except For Hx Cardiac Problems: Yes - PNA, Anemia, Hyperlipidemia Hx Hypertension: Yes Hx Diabetes: Yes Hx Cancer: No Hx Gastrointestinal Problems: Yes - GERD Hx Dialysis: Yes - ESRD Hx Cerebrovascular Accident: Yes Review of Systems All Other Systems: limited - Patient altered Physical Exam Vital Signs Date Time Temp Pulse Resp B/P (MAP) Pulse Ox O2 Delivery O2 Flow Rate FiO2 06/14/19 13:29 99.1 97 18 138/66 (90) 98 06/14/19 13:52 Facial 30 06/14/19 17:46 2.0 Sp02 EP Interpretation: reviewed General Appearance: severe distress, obese Head: normocephalic, atraumatic Respiratory: lungs clear, normal breath sounds Cardiovascular #1: tachycardia Gastrointestinal: non tender, soft Procedures Central Line Central Line : Consent: Emergent Central Line Lumen: triple Maximal Sterile Barrier Tech: yes cap, yes mask, yes sterile gown, yes sterile gloves, yes large sterile sheet, yes hand hygiene, yes chlorhexidine prep Central Line Postion: femoral (R) Anesthesia: other - Fentanyl Complications: Could not pass guidewire on left femoral, had to restart procedure on right femoral Central Line Post Position: sutured, good blood return Attempts: Other - 3 Patient Tolerated: Well Complications: None Medical Decision Making Diagnostic Impression: Primary Impression: GI bleed Additional Impression: ESRD (end stage renal disease) on dialysis ER Course 84-year-old female presented with hypotension, requiring emergent central line placement Line placed, patient tolerated procedure well, patient is currently in ICU Last Vital Signs Date Time Temp Pulse Resp B/P (MAP) Pulse Ox O2 Delivery O2 Flow Rate FiO2 06/15/19 04:00 94/60 06/15/19 04:00 Nasal Cannula 2.0 06/15/19 04:00 129 06/15/19 03:30 24 100 06/15/19 01:45 99.6 06/14/19 19:30 28 Disposition: ADMITTED INPATIENT Condition: Serious Referrals: Castro De La Cruz MD (PCP) Jamie Rodas MD Jun 15, 2019 05:45
[2019-06-15 05:57] LABS: AMMONIA 27 umol/L (11-32)
[2019-06-15 06:17] LABS: ALANINE AMINOTRANSFERASE 40 U/L (12-78); ALBUMIN 2.5 G/DL (3.4-5.0); ALBUMIN/GLOBULIN RATIO 0.5 (1.0-2.7); ALKALINE PHOSPHATASE 125 U/L (46-116); ANION GAP 17 mmol/L (5-15); ASPARTATE AMINO TRANSFERASE 75 U/L (15-37); BILIRUBIN,TOTAL 1.2 MG/DL (0.2-1.0); BLOOD UREA NITROGEN 117 mg/dL (7-18); CALCIUM 9.4 MG/DL (8.5-10.1); CARBON DIOXIDE 25 MMOL/L (21-32); CHLORIDE 101 MMOL/L (98-107); CHOLESTEROL 79 MG/DL (< 200); CREATINE KINASE 39 U/L (26-308); CREATININE 10.3 MG/DL (0.55-1.30); FERRITIN 1372 NG/ML (8-388); GAMMA GLUTAMYL TRANSPEPTIDASE 153 U/L (5-85); HDL CHOLESTEROL 19 MG/DL (40-60); PHOSPHORUS 4.4 MG/DL (2.5-4.9); POTASSIUM 4.3 MMOL/L (3.5-5.1); SODIUM 143 MMOL/L (136-145); TRIGLYCERIDES 131 MG/DL (30-150)
[2019-06-15 06:20] LABS: BILIRUBIN,DIRECT 0.7 MG/DL (0.0-0.3)
[2019-06-15] MEDS: Piperacillin/Tazobactam 2.25 GM in D5W 55 ML IVPB SCH (06:39)
[2019-06-15] MEDS: NovoLOG Insulin Flexpen SUBQ SCH ×4 (06:40→20:47)
[2019-06-15 06:49] LABS: % IRON SATURATION 25 % (15-50); IRON 18 ug/dL (50-175); TOTAL IRON BINDING CAPACITY 72 ug/dL (250-450)
--- NOTE | 2019-06-15 08:57 | Consultation ---
Consult Note Consult Note asked to eval for dialysis management- KNOWN TO ME FROM HER RECENT ADMISSION Elderly bed ridden female with bilateral LE amputee on HD !!! ADMITTED WITH GI BLEED DATA REVIEWED DISCUSSED WITH RN PH 1. Type 2 diabetes. 2. End-stage renal disease, on hemodialysis. 3. Hypercholesterolemia. 4. Hypertension. 5. Gout. 6. Cerebrovascular disease, status post cerebrovascular accident. 7. Peripheral vascular disease. 8. History of deep venous thrombosis. PAST SURGICAL HISTORY: Significant for: 1. Right arm arteriovenous graft for dialysis. 2. Bilateral [id number]-[id number] amputation. Assessment/Plan ESRD on HD Hemoptysis vs Hematemesis Decubs Anemia Leukocytosis fever / Sepsis h/o Pancreatitis h/o DM & HTN plan HD today Check Lipase Keep BP above 100 syst per consultants Matthew Rich MD Jun 15, 2019 08:57
[2019-06-15] MEDS ORDERED: Allopurinol 100mg Tab GT SCH (09:00)
[2019-06-15] MEDS ORDERED: Pantoprazole Inj IV SCH (09:00)
--- NOTE | 2019-06-15 09:14 | General Progress Note ---
Assessment/Plan Assessment/Plan: 1. Septic Shock - cont pressors to hold blood pressure. cont IV Abx and f/u cultures. 2. ESRD on HD - HD will be done today. 3. Sacral pressure ulcer - may need debridement. will consult surgery. 4. Upper GI bleed - H/H currently stable. GI is following. 5. Sepsis - cont IV Abx. ID following the patient. 6. HLD - cont home meds. 7. Gout - cont Allopurinol 8. H/O PVD 9. H/O DVT 10. DM II - cont SSI. 11. HTN - off meds due to septic shock. Subjective Date patient seen: Jun 15, 2019 Time patient seen: 08:40 Constitutional: Reports: fever HEENT: Reports: no symptoms Cardiovascular: Reports: no symptoms Respiratory: Reports: cough Gastrointestinal/Abdominal: Reports: vomiting Genitourinary: Reports: no symptoms Neurologic/Psychiatric: Reports: no symptoms Endocrine: Reports: no symptoms Hematologic/Lymphatic: Reports: anemia Allergies: Coded Allergies: GABAPENTIN (Unverified Allergy, Unknown, 06/14/19) Subjective Patient was seen in ICU. This morning patient is tachycardic and she was hypotensive since last night. she had low grade fever. She has septic shock. No more nausea or vomiting today. Awaiting HD today. She is on pressor since last night. Objective Last 24 Hour Vital Signs Date Time Temp Pulse Resp B/P (MAP) Pulse Ox O2 Delivery O2 Flow Rate FiO2 06/15/19 08:00 127 06/15/19 07:00 122 28 92/48 (63) 100 06/15/19 07:00 92/48 06/15/19 06:30 125 28 76/61 (66) 100 06/15/19 06:00 125 25 91/46 (61) 100 06/15/19 05:30 124 25 97/51 (66) 100 06/15/19 05:00 128 25 101/41 (61) 100 06/15/19 04:30 129 26 94/43 (60) 99 06/15/19 04:00 99.6 133 28 94/60 (71) 99 06/15/19 04:00 94/60 06/15/19 04:00 Nasal Cannula 2.0 06/15/19 04:00 129 06/15/19 03:30 131 24 100/39 (59) 100 06/15/19 03:15 113 25 90/41 (57) 99 06/15/19 03:00 70/30 06/15/19 03:00 113 25 70/30 (43) 99 06/15/19 02:45 112 25 71/56 (61) 99 06/15/19 02:15 71/56 06/15/19 02:00 114 24 64/44 (51) 99 06/15/19 01:45 99.6 06/15/19 01:30 114 24 66/33 (44) 100 06/15/19 01:00 100.3 120 24 74/49 (57) 99 06/15/19 00:00 120 24 98/35 (56) 99 06/15/19 00:00 Nasal Cannula 2.0 06/14/19 23:00 126 24 84/56 (65) 100 06/14/19 22:00 123 24 101/80 (87) 100 06/14/19 21:00 121 25 101/80 (87) 100 06/14/19 20:00 100.6 103 24 108/51 (70) 100 06/14/19 20:00 103 06/14/19 20:00 Nasal Cannula 2.0 06/14/19 19:30 123 25 98 Nasal Cannula 2.0 28 06/14/19 19:30 97 Nasal Cannula 2.0 28 06/14/19 19:00 98 22 103/44 (63) 100 06/14/19 18:30 96 23 121/47 (71) 100 06/14/19 18:00 96 21 105/49 (67) 100 06/14/19 17:46 2.0 06/14/19 17:46 Nasal Cannula 2.0 06/14/19 17:30 96 26 117/51 (73) 100 06/14/19 17:04 99.1 97 26 105/52 100 Bi-pap 30 06/14/19 17:00 99.3 95 26 84/65 (71) 100 06/14/19 15:32 99.1 97 26 105/52 100 Bi-pap 30 06/14/19 14:55 100 35 100 Facial 30 06/14/19 14:55 30 06/14/19 14:38 99.1 102 28 127/69 100 Bi-pap 30 06/14/19 13:59 116 29 30 06/14/19 13:59 99.1 117 29 138/66 100 Bi-pap 30 06/14/19 13:58 116 29 100 Bi-Pap 30 06/14/19 13:52 115 29 100 Facial 30 06/14/19 13:29 99.1 97 18 138/66 (90) 98 Intake and Output 06/14/19 06/15/19 19:00 07:00 Intake Total 165 ml 927.5 ml Output Total 0 ml 0 ml Balance 165 ml 927.5 ml Intake Oral 0 ml 0 ml IV Total 165 ml 927.5 ml Output Urine Total 0 ml 0 ml # Bowel Movements 1 Laboratory Tests 06/14/19 13:40: White Blood Count 17.3H, Red Blood Count 3.30L, Hemoglobin 9.8L, Hematocrit 31.2L, Mean Corpuscular Volume 95, Mean Corpuscular Hemoglobin 29.8, Mean Corpuscular Hemoglobin Concent 31.5L, Red Cell Distribution Width 16.9H, Platelet Count 376, Mean Platelet Volume 5.9L, Neutrophils (%) (Auto) 77.4H, Lymphocytes (%) (Auto) 16.4L, Monocytes (%) (Auto) 3.0, Eosinophils (%) (Auto) 2.9, Basophils (%) (Auto) 0.3, Prothrombin Time 10.7, Prothromb Time International Ratio 1.0, Activated Partial Thromboplast Time 31, Sodium Level 142, Potassium Level 4.5, Chloride Level 99, Carbon Dioxide Level 32, Anion Gap 11, Blood Urea Nitrogen 103H, Creatinine 9.3H, Estimat Glomerular Filtration Rate , Glucose Level 136H, Lactic Acid Level 2.10H, Calcium Level 9.4, Phosphorus Level 5.2H, Magnesium Level 2.7H, Total Bilirubin 0.6, Aspartate Amino Transf (AST/SGOT) 45H, Alanine Aminotransferase (ALT/SGPT) 28, Alkaline Phosphatase 146H, Total Creatine Kinase 13L, Creatine Kinase MB 0.5, Creatine Kinase MB Relative Index 3.8, Troponin I 0.042, Pro-B-Type Natriuretic Peptide 5639H, Total Protein 7.1, Albumin 2.5L, Globulin 4.6, Albumin/Globulin Ratio 0.5L 06/14/19 14:25: Arterial Blood pH 7.407, Arterial Blood Partial Pressure CO2 43.7, Arterial Blood Partial Pressure O2 94.3, Arterial Blood HCO3 26.9H, Arterial Blood Oxygen Saturation 96.8, Arterial Blood Base Excess 1.9, Gus Test Positive 06/14/19 14:45: Lactic Acid Level 1.70 06/14/19 18:35: Troponin I 0.038 06/15/19 04:15: White Blood Count 24.2*H, Red Blood Count 3.35L, Hemoglobin 10.0L, Hematocrit 32.0L, Mean Corpuscular Volume 96, Mean Corpuscular Hemoglobin 29.8, Mean Corpuscular Hemoglobin Concent 31.2L, Red Cell Distribution Width 17.3H, Platelet Count 385, Mean Platelet Volume 5.8L, Neutrophils (%) (Auto) , Lymphocytes (%) (Auto) , Monocytes (%) (Auto) , Eosinophils (%) (Auto) , Basophils (%) (Auto) , Differential Total Cells Counted 100, Neutrophils % ( Manual) 88H, Lymphocytes % (Manual) 3L, Monocytes % (Manual) 2, Eosinophils % ( Manual) 2, Basophils % (Manual) 0, Band Neutrophils 5, Platelet Estimate Adequate, Platelet Morphology Normal, Anisocytosis 1+, Sodium Level 143, Potassium Level 4.3, Chloride Level 101, Carbon Dioxide Level 25, Anion Gap 17H , Blood Urea Nitrogen 117H, Creatinine 10.3H, Estimat Glomerular Filtration Rate , Glucose Level 152H, Hemoglobin A1c 5.2, Uric Acid 9.1H, Calcium Level 9.4 , Phosphorus Level 4.4, Magnesium Level 2.5H, Iron Level 18L, Total Iron Binding Capacity 72L, Percent Iron Saturation 25, Unsaturated Iron Binding 54L, Ferritin 1372H, Total Bilirubin 1.2H, Direct Bilirubin 0.7H, Gamma Glutamyl Transpeptidase 153H, Aspartate Amino Transf (AST/SGOT) 75H, Alanine Aminotransferase (ALT/SGPT) 40, Alkaline Phosphatase 125H, Ammonia 27, Total Creatine Kinase 39, Troponin I 0.015, C-Reactive Protein, Quantitative 16.6H, Pro-B-Type Natriuretic Peptide 6411H, Total Protein 7.2, Albumin 2.5L, Globulin 4.7, Albumin/Globulin Ratio 0.5L, Triglycerides Level 131, Cholesterol Level 79 , LDL Cholesterol 40, HDL Cholesterol 19L, Cholesterol/HDL Ratio 4.2, Vitamin B12 Level 889, Folate 84.8H, Thyroid Stimulating Hormone (TSH) 3.616, Random Vancomycin Level 13.7, TB Test (T-Spot) [Pending], TB Test Nil Control (T-Spot) [Pending], TB Test Panel A (T-Spot) [Pending], TB Test Panel B (T-Spot) [Pending ], TB Test Positive Control (T-Spot) [Pending] Height (Feet): 3 Height (Inches): 0.00 Weight (Pounds): 147 General Appearance: no apparent distress, alert, other - aphasic EENT: normal ENT inspection Neck: non-tender, supple Cardiovascular: tachycardia, other - hypotensive Respiratory/Chest: no respiratory distress, decreased breath sounds Abdomen: normal bowel sounds, non tender, soft Extremities: other - bilatera above the knee amputation Neurologic: alert, responsive Skin: warm/dry, other - Sacral decubitus ulcer Lymphatic: normal anterior cervical (L), normal anterior cervical (R), normal posterior cervical (L), normal posterior cervical (R), normal submandibular (L) , normal submandibular (R), normal supraclavicular (L), normal supraclavicular ( R), normal axillary (L), normal axillary (R), normal inguinal (L), normal inguinal (R), normal other Pam Alcantar MD Jun 15, 2019 09:14
--- NOTE | 2019-06-15 10:14 | Consultation ---
History of Present Illness General Date patient seen: Jun 15, 2019 Chief Complaint: Upper Respiratory Illness Present Illness HPI 84-year-old female with PMHx of DM, ESRF, CVA, bed bound, extensive Decubiti, bilateral AKA, [facility] resident, vegetative state, or the verge of life, brought in by EMS with hematemesis, and bloody secretions from her gastrostomy tube. She was hypotensive and in respiratory failure in ER. she was started on Levophed drip and put on BIPAP and transferred to ICU. She is awake now, looks comfortable on Levophed of 10 ug/min. Allergies: Coded Allergies: GABAPENTIN (Unverified Allergy, Unknown, 06/14/19) Medication History Scheduled Allopurinol* (Allopurinol*), 100 MG ORAL DAILY, (Reported) Allopurinol* (Allopurinol*), 100 MG GT DAILY Amoxicillin/Potassium Clav 250-62.5 Mg/5 Ml (Augmentin 250-62.5 Mg/5 Ml), 250 MG GT EVERY 8 HOURS Brimonidine Tartrate (Alphagan P), 5 ML OP BID, (Reported) Epoetin Alli (Procrit), 10,000 UNITS SUBQ WED-WED-WED Famotidine (Pepcid), 20 MG ORAL BEDTIME, (Reported) Folic Acid* (Folic Acid*), 1 MG ORAL DAILY, (Reported) Insulin Aspart (Novolog Flexpen), 0 UNITS SUBQ EVERY 6 HOURS Lansoprazole* (Lansoprazole*), 30 MG GT DAILY Midodrine* (Proamatine*), 10 MG GT DAILY, (Reported) Multivitamins* (Multivitamins*), 1 TAB GT DAILY, (Reported) Omeprazole/Sodium Bicarbonate (Zegerid 40 Mg Packet), 40 PACKET GT BID, ( Reported) Edycurghldth-Wmma-Mmpylotj,Iso (Zosyn 3.375 Gm Pre Mix-Bag), 3.375 GM IVPB EVERY 8 HOURS, (Reported) Sgeoyuauwuyy-Smno-Ragsafue,Iso (Zosyn 3.375 Gm Pre Mix-Bag), 2.25 GM IVPB EVERY 8 HOURS, (Reported) Polyethylene Glycol 3350* (Miralax*), 17 GM GT DAILY, (Reported) Pravastatin Sod* (Pravachol*), 40 MG ORAL BEDTIME, (Reported) Pravastatin Sod* (Pravachol*), 40 MG GT BEDTIME Timolol Maleate (Timolol Maleate), 1 DROP BOTH EYES TWICE A DAY, (Reported) Vitamin B Cmplx/Vit C/Folic AC (Nephro-Xavier Tablet), 1 TAB GT DAILY, (Reported) Zinc Sulfate (Zinc Sulfate*), 220 MG ORAL DAILY, (Reported) Scheduled PRN Acetaminophen (Acetaminophen), 650 MG GT Q4H PRN Albuterol Sulfate* (Albuterol Sulfate Hhn*), 3 ML INH Q4H PRN for Shortness of Breath, (Reported) Diphenhydramine Hcl* (Benadryl*), 25 MG ORAL Q6H PRN for Itching, (Reported) Hydralazine Hcl* (Hydralazine Hcl*), 25 MG ORAL PRN PRN for For High Blood Pressure, (Reported) Hydrocodone Bit/Acetaminophen 5-325* ([place] 5-325*), 1 TAB ORAL Q4H PRN for For Pain, (Reported) Hydrocodone Bit/Acetaminophen 5-325* ([place] 5-325*), 1 TAB GT Q4H PRN Ondansetron* (Zofran*), 4 MG IVP Q6H PRN Zolpidem Tartrate* (Ambien*), 5 MG GT HSPRN PRN [D50w], 0 ML IV STAT PRN Miscellaneous Medications Bisacodyl (Dulcolax), 10 MG RC, (Reported) Brimonidine Tartrate (Brimonidine Tartrate), (Reported) Lactobacillus Rhamnosus GG (Culturelle), 2 TAB GT, (Reported) Naph,Mb-Db/K Ph,Mbdb (Phos-Nak Packet), 1 EACH GT, (Reported) Unable to Obtain Medications (Unable To Obtain Meds), (Reported) Patient History Healthcare decision maker N Resuscitation status Full Code Advanced Directive on File Past Medical/Surgical History Past Medical/Surgical History: (1) HTN (hypertension) (2) DM (diabetes mellitus) (3) Pancreatitis (4) Anemia due to chronic kidney disease (5) G tube feedings (6) Decubitus skin ulcer (7) ESRD (end stage renal disease) on dialysis Review of Systems All Other Systems: negative except mentioned in HPI Physical Exam General Appearance: WD/WN, no apparent distress Lines, tubes and drains: peripheral HEENT: normocephalic, atraumatic Neck: non-tender, normal alignment, supple Respiratory/Chest: chest wall non-tender, lungs clear, normal breath sounds Breasts: no masses Cardiovascular/Chest: normal peripheral pulses Genitourinary/Rectal: normal genital exam Extremities: normal range of motion Last 24 Hour Vital Signs Date Time Temp Pulse Resp B/P (MAP) Pulse Ox O2 Delivery O2 Flow Rate FiO2 06/15/19 09:30 122 22 100/74 (83) 100 06/15/19 09:00 125 22 100/74 (83) 100 06/15/19 08:30 125 28 105/45 (65) 100 06/15/19 08:00 99.1 128 28 99/50 (66) 100 06/15/19 08:00 127 06/15/19 08:00 Room Air 06/15/19 07:30 130 28 104/45 (64) 100 06/15/19 07:00 122 28 92/48 (63) 100 06/15/19 07:00 92/48 06/15/19 06:30 125 28 76/61 (66) 100 06/15/19 06:00 125 25 91/46 (61) 100 06/15/19 05:30 124 25 97/51 (66) 100 06/15/19 05:00 128 25 101/41 (61) 100 06/15/19 04:30 129 26 94/43 (60) 99 06/15/19 04:00 99.6 133 28 94/60 (71) 99 06/15/19 04:00 94/60 06/15/19 04:00 Nasal Cannula 2.0 06/15/19 04:00 129 06/15/19 03:30 131 24 100/39 (59) 100 06/15/19 03:15 113 25 90/41 (57) 99 06/15/19 03:00 70/30 06/15/19 03:00 113 25 70/30 (43) 99 06/15/19 02:45 112 25 71/56 (61) 99 06/15/19 02:15 71/56 06/15/19 02:00 114 24 64/44 (51) 99 06/15/19 01:45 99.6 06/15/19 01:30 114 24 66/33 (44) 100 06/15/19 01:00 100.3 120 24 74/49 (57) 99 06/15/19 00:00 120 24 98/35 (56) 99 06/15/19 00:00 Nasal Cannula 2.0 06/14/19 23:00 126 24 84/56 (65) 100 06/14/19 22:00 123 24 101/80 (87) 100 06/14/19 21:00 121 25 101/80 (87) 100 06/14/19 20:00 100.6 103 24 108/51 (70) 100 06/14/19 20:00 103 06/14/19 20:00 Nasal Cannula 2.0 06/14/19 19:30 123 25 98 Nasal Cannula 2.0 28 06/14/19 19:30 97 Nasal Cannula 2.0 28 06/14/19 19:00 98 22 103/44 (63) 100 06/14/19 18:30 96 23 121/47 (71) 100 06/14/19 18:00 96 21 105/49 (67) 100 06/14/19 17:46 2.0 06/14/19 17:46 Nasal Cannula 2.0 06/14/19 17:30 96 26 117/51 (73) 100 06/14/19 17:04 99.1 97 26 105/52 100 Bi-pap 30 06/14/19 17:00 99.3 95 26 84/65 (71) 100 06/14/19 15:32 99.1 97 26 105/52 100 Bi-pap 30 06/14/19 14:55 100 35 100 Facial 30 06/14/19 14:55 30 06/14/19 14:38 99.1 102 28 127/69 100 Bi-pap 30 06/14/19 13:59 116 29 30 06/14/19 13:59 99.1 117 29 138/66 100 Bi-pap 30 06/14/19 13:58 116 29 100 Bi-Pap 30 06/14/19 13:52 115 29 100 Facial 30 06/14/19 13:29 99.1 97 18 138/66 (90) 98 Intake and Output 06/14/19 06/15/19 19:00 07:00 Intake Total 165 ml 927.5 ml Output Total 0 ml 0 ml Balance 165 ml 927.5 ml Intake Oral 0 ml 0 ml IV Total 165 ml 927.5 ml Output Urine Total 0 ml 0 ml # Bowel Movements 1 Laboratory Tests Test 06/14/19 13:40 06/14/19 14:25 06/14/19 14:45 06/14/19 18:35 White Blood Count 17.3 K/UL (4.8-10.8) H Red Blood Count 3.30 M/UL (4.20-5.40) L Hemoglobin 9.8 G/DL (12.0-16.0) L Hematocrit 31.2 % (37.0-47.0) L Mean Corpuscular Volume 95 FL (80-99) Mean Corpuscular Hemoglobin 29.8 PG (27.0-31.0) Mean Corpuscular Hemoglobin Concent 31.5 G/DL (32.0-36.0) L Red Cell Distribution Width 16.9 % (11.6-14.8) H Platelet Count 376 K/UL (150-450) Mean Platelet Volume 5.9 FL (6.5-10.1) L Neutrophils (%) (Auto) 77.4 % (45.0-75.0) H Lymphocytes (%) (Auto) 16.4 % (20.0-45.0) L Monocytes (%) (Auto) 3.0 % (1.0-10.0) Eosinophils (%) (Auto) 2.9 % (0.0-3.0) Basophils (%) (Auto) 0.3 % (0.0-2.0) Prothrombin Time 10.7 SEC (9.30-11.50) Prothromb Time International Ratio 1.0 (0.9-1.1) Activated Partial Thromboplast Time 31 SEC (23-33) Sodium Level 142 MMOL/L (136-145) Potassium Level 4.5 MMOL/L (3.5-5.1) Chloride Level 99 MMOL/L (98-107) Carbon Dioxide Level 32 MMOL/L (21-32) Anion Gap 11 mmol/L (5-15) Blood Urea Nitrogen 103 mg/dL (7-18) H Creatinine 9.3 MG/DL (0.55-1.30) H Estimat Glomerular Filtration Rate mL/min (>60) Glucose Level 136 MG/DL (74-106) H Lactic Acid Level 2.10 mmol/L (0.4-2.0) H 1.70 mmol/L (0.66-2.22) Calcium Level 9.4 MG/DL (8.5-10.1) Phosphorus Level 5.2 MG/DL (2.5-4.9) H Magnesium Level 2.7 MG/DL (1.8-2.4) H Total Bilirubin 0.6 MG/DL (0.2-1.0) Aspartate Amino Transf (AST/SGOT) 45 U/L (15-37) H Alanine Aminotransferase (ALT/SGPT) 28 U/L (12-78) Alkaline Phosphatase 146 U/L (46-116) H Total Creatine Kinase 13 U/L (26-308) L Creatine Kinase MB 0.5 NG/ML (0.0-3.6) Creatine Kinase MB Relative Index 3.8 Troponin I 0.042 ng/mL (0.000-0.056) 0.038 ng/mL (0.000-0.056) Pro-B-Type Natriuretic Peptide 5639 pg/mL (0-125) H Total Protein 7.1 G/DL (6.4-8.2) Albumin 2.5 G/DL (3.4-5.0) L Globulin 4.6 g/dL Albumin/Globulin Ratio 0.5 (1.0-2.7) L Arterial Blood pH 7.407 (7.350-7.450) Arterial Blood Partial Pressure CO2 43.7 mmHg (35.0-45.0) Arterial Blood Partial Pressure O2 94.3 mmHg (75.0-100.0) Arterial Blood HCO3 26.9 mmol/L (22.0-26.0) H Arterial Blood Oxygen Saturation 96.8 % (95-100) Arterial Blood Base Excess 1.9 (-2-2) Gus Test Positive Test 06/15/19 04:13 06/15/19 04:15 Lipase 317 U/L (73-393) White Blood Count 24.2 K/UL (4.8-10.8) *H Red Blood Count 3.35 M/UL (4.20-5.40) L Hemoglobin 10.0 G/DL (12.0-16.0) L Hematocrit 32.0 % (37.0-47.0) L Mean Corpuscular Volume 96 FL (80-99) Mean Corpuscular Hemoglobin 29.8 PG (27.0-31.0) Mean Corpuscular Hemoglobin Concent 31.2 G/DL (32.0-36.0) L Red Cell Distribution Width 17.3 % (11.6-14.8) H Platelet Count 385 K/UL (150-450) Mean Platelet Volume 5.8 FL (6.5-10.1) L Neutrophils (%) (Auto) % (45.0-75.0) Lymphocytes (%) (Auto) % (20.0-45.0) Monocytes (%) (Auto) % (1.0-10.0) Eosinophils (%) (Auto) % (0.0-3.0) Basophils (%) (Auto) % (0.0-2.0) Differential Total Cells Counted 100 Neutrophils % (Manual) 88 % (45-75) H Lymphocytes % (Manual) 3 % (20-45) L Monocytes % (Manual) 2 % (1-10) Eosinophils % (Manual) 2 % (0-3) Basophils % (Manual) 0 % (0-2) Band Neutrophils 5 % (0-8) Platelet Estimate Adequate Platelet Morphology Normal Anisocytosis 1+ Sodium Level 143 MMOL/L (136-145) Potassium Level 4.3 MMOL/L (3.5-5.1) Chloride Level 101 MMOL/L (98-107) Carbon Dioxide Level 25 MMOL/L (21-32) Anion Gap 17 mmol/L (5-15) H Blood Urea Nitrogen 117 mg/dL (7-18) H Creatinine 10.3 MG/DL (0.55-1.30) H Estimat Glomerular Filtration Rate mL/min (>60) Glucose Level 152 MG/DL (74-106) H Hemoglobin A1c 5.2 % (4.3-6.0) Uric Acid 9.1 MG/DL (2.6-7.2) H Calcium Level 9.4 MG/DL (8.5-10.1) Phosphorus Level 4.4 MG/DL (2.5-4.9) Magnesium Level 2.5 MG/DL (1.8-2.4) H Iron Level 18 ug/dL (50-175) L Total Iron Binding Capacity 72 ug/dL (250-450) L Percent Iron Saturation 25 % (15-50) Unsaturated Iron Binding 54 ug/dL (112-346) L Ferritin 1372 NG/ML (8-388) H Total Bilirubin 1.2 MG/DL (0.2-1.0) H Direct Bilirubin 0.7 MG/DL (0.0-0.3) H Gamma Glutamyl Transpeptidase 153 U/L (5-85) H Aspartate Amino Transf (AST/SGOT) 75 U/L (15-37) H Alanine Aminotransferase (ALT/SGPT) 40 U/L (12-78) Alkaline Phosphatase 125 U/L (46-116) H Ammonia 27 umol/L (11-32) Total Creatine Kinase 39 U/L (26-308) Troponin I 0.015 ng/mL (0.000-0.056) C-Reactive Protein, Quantitative 16.6 mg/dL (0.00-0.90) H Pro-B-Type Natriuretic Peptide 6411 pg/mL (0-125) H Total Protein 7.2 G/DL (6.4-8.2) Albumin 2.5 G/DL (3.4-5.0) L Globulin 4.7 g/dL Albumin/Globulin Ratio 0.5 (1.0-2.7) L Triglycerides Level 131 MG/DL (30-150) Cholesterol Level 79 MG/DL (< 200) LDL Cholesterol 40 mg/dL (<100) HDL Cholesterol 19 MG/DL (40-60) L Cholesterol/HDL Ratio 4.2 (3.3-4.4) Vitamin B12 Level 889 PG/ML (193-986) Folate 84.8 NG/ML (8.6-58.9) H Thyroid Stimulating Hormone (TSH) 3.616 uiU/mL (0.358-3.740) Random Vancomycin Level 13.7 ug/mL TB Test (T-Spot) Pending TB Test Nil Control (T-Spot) Pending TB Test Panel A (T-Spot) Pending TB Test Panel B (T-Spot) Pending TB Test Positive Control (T-Spot) Pending Height (Feet): 3 Height (Inches): 0.00 Weight (Pounds): 147 Medications Current Medications Medications (Trade) Dose Ordered Sig/Selene Route PRN Reason Start Time Stop Time Status Last Admin Dose Admin Acetaminophen (Tylenol) 650 mg Q4H PRN GT Fever 06/14/19 17:45 07/14/19 17:44 06/15/19 01:12 Albumin Human 500 ml @ 0 mls/hr Q0M IV 06/15/19 09:15 06/15/19 10:30 Albuterol/ Ipratropium (Albuterol/ Ipratropium) 3 ml Q4H PRN HHN Shortness of Breath 06/14/19 17:45 06/19/19 17:44 Chlorhexidine Gluconate (Ivory-Hex 2%) 1 applic DAILY@2000 TOPIC 06/15/19 20:00 07/15/19 19:59 Dextrose/Sodium Chloride 1,000 ml @ 75 mls/hr [id number] IV 06/15/19 09:15 07/15/19 09:14 Hydralazine HCl (Apresoline) 25 mg Q6H PRN ORAL For High Blood Pressure 06/14/19 21:00 07/14/19 20:59 Insulin Aspart (NovoLOG) BEFORE MEALS AND HS SUBQ 06/14/19 21:00 07/14/19 20:59 06/15/19 06:40 Lorazepam (Ativan 2mg/ml 1ml) 2 mg Q4H PRN IV For Anxiety 06/14/19 17:45 06/21/19 17:44 Morphine Sulfate (Morphine Sulfate) 4 mg Q4H PRN IVP For Pain 06/14/19 17:45 06/21/19 17:44 Norepinephrine Bitartrate 4 mg/ Dextrose 250 ml @ 0 mls/hr Q24H IV 06/15/19 02:15 07/15/19 02:14 06/15/19 02:15 Ondansetron HCl (Zofran) 4 mg Q6H PRN IVP Nausea & Vomiting 06/14/19 17:45 07/14/19 17:44 Pantoprazole 80 mg/Sodium Chloride 250 ml @ 25 mls/hr Q10H IV 06/14/19 17:00 07/14/19 16:59 06/15/19 03:36 Piperacillin Sod/ Tazobactam Sod 2.25 gm/Dextrose 55 ml @ 110 mls/hr Q8HR IVPB 06/14/19 22:00 06/19/19 21:59 06/15/19 06:39 Vancomycin HCl (Vanco rx to dose) 1 ea DAILY PRN MISC Per rx protocol 06/14/19 19:45 07/14/19 19:44 Vancomycin HCl 1 gm/Dextrose 275 ml @ 183.708 mls/hr ONCE ONCE IVPB 06/15/19 18:00 06/15/19 19:29 Assessment/Plan Problem List: (1) Septic shock ICD Codes: A41.9 - Sepsis, unspecified organism; R65.21 - Severe sepsis with septic shock SNOMED: 06079732 (2) GI bleed ICD Codes: K92.2 - Gastrointestinal hemorrhage, unspecified SNOMED: 31062039 (3) Anemia ICD Codes: D64.9 - Anemia, unspecified SNOMED: 571833437 (4) Decubitus skin ulcer ICD Codes: L89.90 - Pressure ulcer of unspecified site, unspecified stage SNOMED: 154124934 (5) ESRD (end stage renal disease) on dialysis ICD Codes: N18.6 - End stage renal disease; Z99.2 - Dependence on renal dialysis SNOMED: 754191324 (6) DM (diabetes mellitus) ICD Codes: E11.9 - Type 2 diabetes mellitus without complications SNOMED: 93298433 (7) G tube feedings ICD Codes: Z93.1 - Gastrostomy status SNOMED: 926295012, 501389851, 588509741 (8) HTN (hypertension) ICD Codes: I10 - Essential (primary) hypertension SNOMED: 34016686 Assessment/Plan: titrate fio2 to sat of 92% off bipap now IV levophed, titrate to mean BP of 60 spence cultures iv abx check cultures hold feeding Protonix drip prbc transfusion prn dvt prophylaxis Rosemary Lui MD Jun 15, 2019 10:14
--- NOTE | 2019-06-15 10:49 | GI Progress Note ---
Assessment/Plan Problems: (1) GI bleed ICD Codes: K92.2 - Gastrointestinal hemorrhage, unspecified SNOMED: 00285051 (2) Anemia due to chronic kidney disease ICD Codes: N18.9 - Chronic kidney disease, unspecified; D63.1 - Anemia in chronic kidney disease SNOMED: 377041615 (3) Septic shock ICD Codes: A41.9 - Sepsis, unspecified organism; R65.21 - Severe sepsis with septic shock SNOMED: 54369853 (4) G tube feedings ICD Codes: Z93.1 - Gastrostomy status SNOMED: 008604171, 670872581, 292922391 Status: unchanged Status Narrative Discussed with Dr. Perales. Assessment/Plan Plan for upper endoscopy when patient is stable, currently on pressor. Maintain n.p.o. plus IV fluids Continue Protonix drip Monitor H&H, transfuse as needed to maintain hemoglobin above 7. Respiratory support follow labs The patient was seen and examined at bedside and all new and available data was reviewed in the patients chart. I agree with the above findings, impression and plan. (Patient seen earlier today. Signature stamp does not reflect patient encounter time.). - Ezequiel Perales MD Subjective Subjective limited Objective Last 24 Hour Vital Signs Date Time Temp Pulse Resp B/P (MAP) Pulse Ox O2 Delivery O2 Flow Rate FiO2 06/15/19 09:30 122 22 100/74 (83) 100 06/15/19 09:00 125 22 100/74 (83) 100 06/15/19 08:30 125 28 105/45 (65) 100 06/15/19 08:00 99.1 128 28 99/50 (66) 100 06/15/19 08:00 127 06/15/19 08:00 Room Air 06/15/19 07:30 130 28 104/45 (64) 100 06/15/19 07:00 122 28 92/48 (63) 100 06/15/19 07:00 92/48 06/15/19 06:30 125 28 76/61 (66) 100 06/15/19 06:00 125 25 91/46 (61) 100 06/15/19 05:30 124 25 97/51 (66) 100 06/15/19 05:00 128 25 101/41 (61) 100 06/15/19 04:30 129 26 94/43 (60) 99 06/15/19 04:00 99.6 133 28 94/60 (71) 99 06/15/19 04:00 94/60 06/15/19 04:00 Nasal Cannula 2.0 06/15/19 04:00 129 06/15/19 03:30 131 24 100/39 (59) 100 06/15/19 03:15 113 25 90/41 (57) 99 06/15/19 03:00 70/30 06/15/19 03:00 113 25 70/30 (43) 99 06/15/19 02:45 112 25 71/56 (61) 99 06/15/19 02:15 71/56 06/15/19 02:00 114 24 64/44 (51) 99 06/15/19 01:45 99.6 06/15/19 01:30 114 24 66/33 (44) 100 06/15/19 01:00 100.3 120 24 74/49 (57) 99 06/15/19 00:00 120 24 98/35 (56) 99 06/15/19 00:00 Nasal Cannula 2.0 06/14/19 23:00 126 24 84/56 (65) 100 06/14/19 22:00 123 24 101/80 (87) 100 06/14/19 21:00 121 25 101/80 (87) 100 06/14/19 20:00 100.6 103 24 108/51 (70) 100 06/14/19 20:00 103 06/14/19 20:00 Nasal Cannula 2.0 06/14/19 19:30 123 25 98 Nasal Cannula 2.0 28 06/14/19 19:30 97 Nasal Cannula 2.0 28 06/14/19 19:00 98 22 103/44 (63) 100 06/14/19 18:30 96 23 121/47 (71) 100 06/14/19 18:00 96 21 105/49 (67) 100 06/14/19 17:46 2.0 06/14/19 17:46 Nasal Cannula 2.0 06/14/19 17:30 96 26 117/51 (73) 100 06/14/19 17:04 99.1 97 26 105/52 100 Bi-pap 30 06/14/19 17:00 99.3 95 26 84/65 (71) 100 06/14/19 15:32 99.1 97 26 105/52 100 Bi-pap 30 06/14/19 14:55 100 35 100 Facial 30 06/14/19 14:55 30 06/14/19 14:38 99.1 102 28 127/69 100 Bi-pap 30 06/14/19 13:59 116 29 30 06/14/19 13:59 99.1 117 29 138/66 100 Bi-pap 30 06/14/19 13:58 116 29 100 Bi-Pap 30 06/14/19 13:52 115 29 100 Facial 30 06/14/19 13:29 99.1 97 18 138/66 (90) 98 Intake and Output 06/14/19 06/15/19 19:00 07:00 Intake Total 165 ml 927.5 ml Output Total 0 ml 0 ml Balance 165 ml 927.5 ml Intake Oral 0 ml 0 ml IV Total 165 ml 927.5 ml Output Urine Total 0 ml 0 ml # Bowel Movements 1 Laboratory Tests Test 06/14/19 13:40 06/14/19 14:25 06/14/19 14:45 06/14/19 18:35 White Blood Count 17.3 K/UL (4.8-10.8) H Red Blood Count 3.30 M/UL (4.20-5.40) L Hemoglobin 9.8 G/DL (12.0-16.0) L Hematocrit 31.2 % (37.0-47.0) L Mean Corpuscular Volume 95 FL (80-99) Mean Corpuscular Hemoglobin 29.8 PG (27.0-31.0) Mean Corpuscular Hemoglobin Concent 31.5 G/DL (32.0-36.0) L Red Cell Distribution Width 16.9 % (11.6-14.8) H Platelet Count 376 K/UL (150-450) Mean Platelet Volume 5.9 FL (6.5-10.1) L Neutrophils (%) (Auto) 77.4 % (45.0-75.0) H Lymphocytes (%) (Auto) 16.4 % (20.0-45.0) L Monocytes (%) (Auto) 3.0 % (1.0-10.0) Eosinophils (%) (Auto) 2.9 % (0.0-3.0) Basophils (%) (Auto) 0.3 % (0.0-2.0) Prothrombin Time 10.7 SEC (9.30-11.50) Prothromb Time International Ratio 1.0 (0.9-1.1) Activated Partial Thromboplast Time 31 SEC (23-33) Sodium Level 142 MMOL/L (136-145) Potassium Level 4.5 MMOL/L (3.5-5.1) Chloride Level 99 MMOL/L (98-107) Carbon Dioxide Level 32 MMOL/L (21-32) Anion Gap 11 mmol/L (5-15) Blood Urea Nitrogen 103 mg/dL (7-18) H Creatinine 9.3 MG/DL (0.55-1.30) H Estimat Glomerular Filtration Rate mL/min (>60) Glucose Level 136 MG/DL (74-106) H Lactic Acid Level 2.10 mmol/L (0.4-2.0) H 1.70 mmol/L (0.66-2.22) Calcium Level 9.4 MG/DL (8.5-10.1) Phosphorus Level 5.2 MG/DL (2.5-4.9) H Magnesium Level 2.7 MG/DL (1.8-2.4) H Total Bilirubin 0.6 MG/DL (0.2-1.0) Aspartate Amino Transf (AST/SGOT) 45 U/L (15-37) H Alanine Aminotransferase (ALT/SGPT) 28 U/L (12-78) Alkaline Phosphatase 146 U/L (46-116) H Total Creatine Kinase 13 U/L (26-308) L Creatine Kinase MB 0.5 NG/ML (0.0-3.6) Creatine Kinase MB Relative Index 3.8 Troponin I 0.042 ng/mL (0.000-0.056) 0.038 ng/mL (0.000-0.056) Pro-B-Type Natriuretic Peptide 5639 pg/mL (0-125) H Total Protein 7.1 G/DL (6.4-8.2) Albumin 2.5 G/DL (3.4-5.0) L Globulin 4.6 g/dL Albumin/Globulin Ratio 0.5 (1.0-2.7) L Arterial Blood pH 7.407 (7.350-7.450) Arterial Blood Partial Pressure CO2 43.7 mmHg (35.0-45.0) Arterial Blood Partial Pressure O2 94.3 mmHg (75.0-100.0) Arterial Blood HCO3 26.9 mmol/L (22.0-26.0) H Arterial Blood Oxygen Saturation 96.8 % (95-100) Arterial Blood Base Excess 1.9 (-2-2) Gus Test Positive Test 06/15/19 04:13 06/15/19 04:15 Lipase 317 U/L (73-393) White Blood Count 24.2 K/UL (4.8-10.8) *H Red Blood Count 3.35 M/UL (4.20-5.40) L Hemoglobin 10.0 G/DL (12.0-16.0) L Hematocrit 32.0 % (37.0-47.0) L Mean Corpuscular Volume 96 FL (80-99) Mean Corpuscular Hemoglobin 29.8 PG (27.0-31.0) Mean Corpuscular Hemoglobin Concent 31.2 G/DL (32.0-36.0) L Red Cell Distribution Width 17.3 % (11.6-14.8) H Platelet Count 385 K/UL (150-450) Mean Platelet Volume 5.8 FL (6.5-10.1) L Neutrophils (%) (Auto) % (45.0-75.0) Lymphocytes (%) (Auto) % (20.0-45.0) Monocytes (%) (Auto) % (1.0-10.0) Eosinophils (%) (Auto) % (0.0-3.0) Basophils (%) (Auto) % (0.0-2.0) Differential Total Cells Counted 100 Neutrophils % (Manual) 88 % (45-75) H Lymphocytes % (Manual) 3 % (20-45) L Monocytes % (Manual) 2 % (1-10) Eosinophils % (Manual) 2 % (0-3) Basophils % (Manual) 0 % (0-2) Band Neutrophils 5 % (0-8) Platelet Estimate Adequate Platelet Morphology Normal Anisocytosis 1+ Sodium Level 143 MMOL/L (136-145) Potassium Level 4.3 MMOL/L (3.5-5.1) Chloride Level 101 MMOL/L (98-107) Carbon Dioxide Level 25 MMOL/L (21-32) Anion Gap 17 mmol/L (5-15) H Blood Urea Nitrogen 117 mg/dL (7-18) H Creatinine 10.3 MG/DL (0.55-1.30) H Estimat Glomerular Filtration Rate mL/min (>60) Glucose Level 152 MG/DL (74-106) H Hemoglobin A1c 5.2 % (4.3-6.0) Uric Acid 9.1 MG/DL (2.6-7.2) H Calcium Level 9.4 MG/DL (8.5-10.1) Phosphorus Level 4.4 MG/DL (2.5-4.9) Magnesium Level 2.5 MG/DL (1.8-2.4) H Iron Level 18 ug/dL (50-175) L Total Iron Binding Capacity 72 ug/dL (250-450) L Percent Iron Saturation 25 % (15-50) Unsaturated Iron Binding 54 ug/dL (112-346) L Ferritin 1372 NG/ML (8-388) H Total Bilirubin 1.2 MG/DL (0.2-1.0) H Direct Bilirubin 0.7 MG/DL (0.0-0.3) H Gamma Glutamyl Transpeptidase 153 U/L (5-85) H Aspartate Amino Transf (AST/SGOT) 75 U/L (15-37) H Alanine Aminotransferase (ALT/SGPT) 40 U/L (12-78) Alkaline Phosphatase 125 U/L (46-116) H Ammonia 27 umol/L (11-32) Total Creatine Kinase 39 U/L (26-308) Troponin I 0.015 ng/mL (0.000-0.056) C-Reactive Protein, Quantitative 16.6 mg/dL (0.00-0.90) H Pro-B-Type Natriuretic Peptide 6411 pg/mL (0-125) H Total Protein 7.2 G/DL (6.4-8.2) Albumin 2.5 G/DL (3.4-5.0) L Globulin 4.7 g/dL Albumin/Globulin Ratio 0.5 (1.0-2.7) L Triglycerides Level 131 MG/DL (30-150) Cholesterol Level 79 MG/DL (< 200) LDL Cholesterol 40 mg/dL (<100) HDL Cholesterol 19 MG/DL (40-60) L Cholesterol/HDL Ratio 4.2 (3.3-4.4) Vitamin B12 Level 889 PG/ML (193-986) Folate 84.8 NG/ML (8.6-58.9) H Thyroid Stimulating Hormone (TSH) 3.616 uiU/mL (0.358-3.740) Random Vancomycin Level 13.7 ug/mL TB Test (T-Spot) Pending TB Test Nil Control (T-Spot) Pending TB Test Panel A (T-Spot) Pending TB Test Panel B (T-Spot) Pending TB Test Positive Control (T-Spot) Pending Height (Feet): 3 Height (Inches): 0.00 Weight (Pounds): 147 General Appearance: no apparent distress Cardiovascular: normal rate Respiratory/Chest: no respiratory distress Abdominal Exam: normal bowel sounds, non tender, soft, GT site Extremities: non-tender Lidia Recio NP Jun 15, 2019 10:49
[2019-06-15] MEDS: D5NS 1,000 ML IV SCH (11:34)
--- NOTE | 2019-06-15 13:04 | Consultation ---
History of Present Illness General Date patient seen: Jun 15, 2019 Chief Complaint: Upper Respiratory Illness Present Illness HPI This is a 84-year-old female known to me from recent admission in April 2019 who presents [facility] after having episodes of hematemesis in the nursing facility. Patient unable to provide history. Patient with multiple medical committees as below. On admission concerns for upper GI bleed. Furthermore patient still has significant decubitus wounds that require extensive care and management. Question if infected and potentially needing debridement. Surgery called to evaluate. Patient seen, patient evaluate, chart reviewed. Allergies: Coded Allergies: GABAPENTIN (Unverified Allergy, Unknown, 06/14/19) Medication History Scheduled Allopurinol* (Allopurinol*), 100 MG ORAL DAILY, (Reported) Allopurinol* (Allopurinol*), 100 MG GT DAILY Amoxicillin/Potassium Clav 250-62.5 Mg/5 Ml (Augmentin 250-62.5 Mg/5 Ml), 250 MG GT EVERY 8 HOURS Brimonidine Tartrate (Alphagan P), 5 ML OP BID, (Reported) Epoetin Alli (Procrit), 10,000 UNITS SUBQ WED-WED-WED Famotidine (Pepcid), 20 MG ORAL BEDTIME, (Reported) Folic Acid* (Folic Acid*), 1 MG ORAL DAILY, (Reported) Insulin Aspart (Novolog Flexpen), 0 UNITS SUBQ EVERY 6 HOURS Lansoprazole* (Lansoprazole*), 30 MG GT DAILY Midodrine* (Proamatine*), 10 MG GT DAILY, (Reported) Multivitamins* (Multivitamins*), 1 TAB GT DAILY, (Reported) Omeprazole/Sodium Bicarbonate (Zegerid 40 Mg Packet), 40 PACKET GT BID, ( Reported) Zqiknehzylup-Soad-Hmvwpucz,Iso (Zosyn 3.375 Gm Pre Mix-Bag), 3.375 GM IVPB EVERY 8 HOURS, (Reported) Dsukgutyvcmi-Mhkw-Yqmjpyus,Iso (Zosyn 3.375 Gm Pre Mix-Bag), 2.25 GM IVPB EVERY 8 HOURS, (Reported) Polyethylene Glycol 3350* (Miralax*), 17 GM GT DAILY, (Reported) Pravastatin Sod* (Pravachol*), 40 MG ORAL BEDTIME, (Reported) Pravastatin Sod* (Pravachol*), 40 MG GT BEDTIME Timolol Maleate (Timolol Maleate), 1 DROP BOTH EYES TWICE A DAY, (Reported) Vitamin B Cmplx/Vit C/Folic AC (Nephro-Xavier Tablet), 1 TAB GT DAILY, (Reported) Zinc Sulfate (Zinc Sulfate*), 220 MG ORAL DAILY, (Reported) Scheduled PRN Acetaminophen (Acetaminophen), 650 MG GT Q4H PRN Albuterol Sulfate* (Albuterol Sulfate Hhn*), 3 ML INH Q4H PRN for Shortness of Breath, (Reported) Diphenhydramine Hcl* (Benadryl*), 25 MG ORAL Q6H PRN for Itching, (Reported) Hydralazine Hcl* (Hydralazine Hcl*), 25 MG ORAL PRN PRN for For High Blood Pressure, (Reported) Hydrocodone Bit/Acetaminophen 5-325* (Lamont 5-325*), 1 TAB ORAL Q4H PRN for For Pain, (Reported) Hydrocodone Bit/Acetaminophen 5-325* (Lamont 5-325*), 1 TAB GT Q4H PRN Ondansetron* (Zofran*), 4 MG IVP Q6H PRN Zolpidem Tartrate* (Ambien*), 5 MG GT HSPRN PRN [D50w], 0 ML IV STAT PRN Miscellaneous Medications Bisacodyl (Dulcolax), 10 MG RC, (Reported) Brimonidine Tartrate (Brimonidine Tartrate), (Reported) Lactobacillus Rhamnosus GG (Culturelle), 2 TAB GT, (Reported) Naph,Mb-Db/K Ph,Mbdb (Phos-Nak Packet), 1 EACH GT, (Reported) Unable to Obtain Medications (Unable To Obtain Meds), (Reported) Patient History Limited by: medical condition History Provided By: Medical Record, PMD Healthcare decision maker N Resuscitation status Full Code Advanced Directive on File Past Medical/Surgical History Past Medical/Surgical History: (1) Electrolyte imbalance (2) Colonization with VRE (vancomycin-resistant enterococcus) (3) MRSA nasal colonization (4) Anemia (5) Decubitus skin ulcer (6) Sepsis (7) Cough with hemoptysis (8) GI bleed (9) ESRD (end stage renal disease) on dialysis (10) Pancreatitis (11) HTN (hypertension) (12) DM (diabetes mellitus) (13) G tube feedings (14) Anemia due to chronic kidney disease (15) Septic shock Review of Systems ROS Narrative Unable to obtain given patient's medical condition Physical Exam General Appearance: no apparent distress Lines, tubes and drains: central line HEENT: other Neck: normal inspection Respiratory/Chest: no respiratory distress, decreased breath sounds Cardiovascular/Chest: tachycardia Abdomen: soft, no organomegaly, no mass Extremities: other - Bilateral amputations Skin Exam: warm/dry Neurologic: unresponsiveness Last 24 Hour Vital Signs Date Time Temp Pulse Resp B/P (MAP) Pulse Ox O2 Delivery O2 Flow Rate FiO2 06/15/19 12:30 116 30 110/52 (71) 100 06/15/19 12:00 98.4 120 26 110/51 (70) 100 06/15/19 11:35 95/45 06/15/19 09:30 122 22 100/74 (83) 100 06/15/19 09:00 125 22 100/74 (83) 100 06/15/19 08:30 125 28 105/45 (65) 100 06/15/19 08:00 99.1 128 28 99/50 (66) 100 06/15/19 08:00 127 06/15/19 08:00 Room Air 06/15/19 07:30 130 28 104/45 (64) 100 06/15/19 07:00 122 28 92/48 (63) 100 06/15/19 07:00 92/48 06/15/19 06:30 125 28 76/61 (66) 100 06/15/19 06:00 125 25 91/46 (61) 100 06/15/19 05:30 124 25 97/51 (66) 100 06/15/19 05:00 128 25 101/41 (61) 100 06/15/19 04:30 129 26 94/43 (60) 99 06/15/19 04:00 99.6 133 28 94/60 (71) 99 06/15/19 04:00 94/60 06/15/19 04:00 Nasal Cannula 2.0 06/15/19 04:00 129 06/15/19 03:30 131 24 100/39 (59) 100 06/15/19 03:15 113 25 90/41 (57) 99 06/15/19 03:00 70/30 7/25/19 03:00 113 25 70/30 (43) 99 06/15/19 02:45 112 25 71/56 (61) 99 06/15/19 02:15 71/56 06/15/19 02:00 114 24 64/44 (51) 99 06/15/19 01:45 99.6 06/15/19 01:30 114 24 66/33 (44) 100 06/15/19 01:00 100.3 120 24 74/49 (57) 99 06/15/19 00:00 120 24 98/35 (56) 99 06/15/19 00:00 Nasal Cannula 2.0 06/14/19 23:00 126 24 84/56 (65) 100 06/14/19 22:00 123 24 101/80 (87) 100 06/14/19 21:00 121 25 101/80 (87) 100 06/14/19 20:00 100.6 103 24 108/51 (70) 100 06/14/19 20:00 103 06/14/19 20:00 Nasal Cannula 2.0 06/14/19 19:30 123 25 98 Nasal Cannula 2.0 28 06/14/19 19:30 97 Nasal Cannula 2.0 28 06/14/19 19:00 98 22 103/44 (63) 100 06/14/19 18:30 96 23 121/47 (71) 100 06/14/19 18:00 96 21 105/49 (67) 100 06/14/19 17:46 2.0 06/14/19 17:46 Nasal Cannula 2.0 06/14/19 17:30 96 26 117/51 (73) 100 06/14/19 17:04 99.1 97 26 105/52 100 Bi-pap 30 06/14/19 17:00 99.3 95 26 84/65 (71) 100 06/14/19 15:32 99.1 97 26 105/52 100 Bi-pap 30 06/14/19 14:55 100 35 100 Facial 30 06/14/19 14:55 30 06/14/19 14:38 99.1 102 28 127/69 100 Bi-pap 30 06/14/19 13:59 116 29 30 06/14/19 13:59 99.1 117 29 138/66 100 Bi-pap 30 06/14/19 13:58 116 29 100 Bi-Pap 30 06/14/19 13:52 115 29 100 Facial 30 06/14/19 13:29 99.1 97 18 138/66 (90) 98 Intake and Output 06/14/19 06/15/19 19:00 07:00 Intake Total 165 ml 927.5 ml Output Total 0 ml 0 ml Balance 165 ml 927.5 ml Intake Oral 0 ml 0 ml IV Total 165 ml 927.5 ml Output Urine Total 0 ml 0 ml # Bowel Movements 1 Laboratory Tests Test 06/14/19 13:40 06/14/19 14:25 06/14/19 14:45 06/14/19 18:35 White Blood Count 17.3 K/UL (4.8-10.8) H Red Blood Count 3.30 M/UL (4.20-5.40) L Hemoglobin 9.8 G/DL (12.0-16.0) L Hematocrit 31.2 % (37.0-47.0) L Mean Corpuscular Volume 95 FL (80-99) Mean Corpuscular Hemoglobin 29.8 PG (27.0-31.0) Mean Corpuscular Hemoglobin Concent 31.5 G/DL (32.0-36.0) L Red Cell Distribution Width 16.9 % (11.6-14.8) H Platelet Count 376 K/UL (150-450) Mean Platelet Volume 5.9 FL (6.5-10.1) L Neutrophils (%) (Auto) 77.4 % (45.0-75.0) H Lymphocytes (%) (Auto) 16.4 % (20.0-45.0) L Monocytes (%) (Auto) 3.0 % (1.0-10.0) Eosinophils (%) (Auto) 2.9 % (0.0-3.0) Basophils (%) (Auto) 0.3 % (0.0-2.0) Prothrombin Time 10.7 SEC (9.30-11.50) Prothromb Time International Ratio 1.0 (0.9-1.1) Activated Partial Thromboplast Time 31 SEC (23-33) Sodium Level 142 MMOL/L (136-145) Potassium Level 4.5 MMOL/L (3.5-5.1) Chloride Level 99 MMOL/L (98-107) Carbon Dioxide Level 32 MMOL/L (21-32) Anion Gap 11 mmol/L (5-15) Blood Urea Nitrogen 103 mg/dL (7-18) H Creatinine 9.3 MG/DL (0.55-1.30) H Estimat Glomerular Filtration Rate mL/min (>60) Glucose Level 136 MG/DL (74-106) H Lactic Acid Level 2.10 mmol/L (0.4-2.0) H 1.70 mmol/L (0.66-2.22) Calcium Level 9.4 MG/DL (8.5-10.1) Phosphorus Level 5.2 MG/DL (2.5-4.9) H Magnesium Level 2.7 MG/DL (1.8-2.4) H Total Bilirubin 0.6 MG/DL (0.2-1.0) Aspartate Amino Transf (AST/SGOT) 45 U/L (15-37) H Alanine Aminotransferase (ALT/SGPT) 28 U/L (12-78) Alkaline Phosphatase 146 U/L (46-116) H Total Creatine Kinase 13 U/L (26-308) L Creatine Kinase MB 0.5 NG/ML (0.0-3.6) Creatine Kinase MB Relative Index 3.8 Troponin I 0.042 ng/mL (0.000-0.056) 0.038 ng/mL (0.000-0.056) Pro-B-Type Natriuretic Peptide 5639 pg/mL (0-125) H Total Protein 7.1 G/DL (6.4-8.2) Albumin 2.5 G/DL (3.4-5.0) L Globulin 4.6 g/dL Albumin/Globulin Ratio 0.5 (1.0-2.7) L Arterial Blood pH 7.407 (7.350-7.450) Arterial Blood Partial Pressure CO2 43.7 mmHg (35.0-45.0) Arterial Blood Partial Pressure O2 94.3 mmHg (75.0-100.0) Arterial Blood HCO3 26.9 mmol/L (22.0-26.0) H Arterial Blood Oxygen Saturation 96.8 % (95-100) Arterial Blood Base Excess 1.9 (-2-2) Gus Test Positive Test 06/15/19 04:13 06/15/19 04:15 Lipase 317 U/L (73-393) White Blood Count 24.2 K/UL (4.8-10.8) *H Red Blood Count 3.35 M/UL (4.20-5.40) L Hemoglobin 10.0 G/DL (12.0-16.0) L Hematocrit 32.0 % (37.0-47.0) L Mean Corpuscular Volume 96 FL (80-99) Mean Corpuscular Hemoglobin 29.8 PG (27.0-31.0) Mean Corpuscular Hemoglobin Concent 31.2 G/DL (32.0-36.0) L Red Cell Distribution Width 17.3 % (11.6-14.8) H Platelet Count 385 K/UL (150-450) Mean Platelet Volume 5.8 FL (6.5-10.1) L Neutrophils (%) (Auto) % (45.0-75.0) Lymphocytes (%) (Auto) % (20.0-45.0) Monocytes (%) (Auto) % (1.0-10.0) Eosinophils (%) (Auto) % (0.0-3.0) Basophils (%) (Auto) % (0.0-2.0) Differential Total Cells Counted 100 Neutrophils % (Manual) 88 % (45-75) H Lymphocytes % (Manual) 3 % (20-45) L Monocytes % (Manual) 2 % (1-10) Eosinophils % (Manual) 2 % (0-3) Basophils % (Manual) 0 % (0-2) Band Neutrophils 5 % (0-8) Platelet Estimate Adequate Platelet Morphology Normal Anisocytosis 1+ Sodium Level 143 MMOL/L (136-145) Potassium Level 4.3 MMOL/L (3.5-5.1) Chloride Level 101 MMOL/L (98-107) Carbon Dioxide Level 25 MMOL/L (21-32) Anion Gap 17 mmol/L (5-15) H Blood Urea Nitrogen 117 mg/dL (7-18) H Creatinine 10.3 MG/DL (0.55-1.30) H Estimat Glomerular Filtration Rate mL/min (>60) Glucose Level 152 MG/DL (74-106) H Hemoglobin A1c 5.2 % (4.3-6.0) Uric Acid 9.1 MG/DL (2.6-7.2) H Calcium Level 9.4 MG/DL (8.5-10.1) Phosphorus Level 4.4 MG/DL (2.5-4.9) Magnesium Level 2.5 MG/DL (1.8-2.4) H Iron Level 18 ug/dL (50-175) L Total Iron Binding Capacity 72 ug/dL (250-450) L Percent Iron Saturation 25 % (15-50) Unsaturated Iron Binding 54 ug/dL (112-346) L Ferritin 1372 NG/ML (8-388) H Total Bilirubin 1.2 MG/DL (0.2-1.0) H Direct Bilirubin 0.7 MG/DL (0.0-0.3) H Gamma Glutamyl Transpeptidase 153 U/L (5-85) H Aspartate Amino Transf (AST/SGOT) 75 U/L (15-37) H Alanine Aminotransferase (ALT/SGPT) 40 U/L (12-78) Alkaline Phosphatase 125 U/L (46-116) H Ammonia 27 umol/L (11-32) Total Creatine Kinase 39 U/L (26-308) Troponin I 0.015 ng/mL (0.000-0.056) C-Reactive Protein, Quantitative 16.6 mg/dL (0.00-0.90) H Pro-B-Type Natriuretic Peptide 6411 pg/mL (0-125) H Total Protein 7.2 G/DL (6.4-8.2) Albumin 2.5 G/DL (3.4-5.0) L Globulin 4.7 g/dL Albumin/Globulin Ratio 0.5 (1.0-2.7) L Triglycerides Level 131 MG/DL (30-150) Cholesterol Level 79 MG/DL (< 200) LDL Cholesterol 40 mg/dL (<100) HDL Cholesterol 19 MG/DL (40-60) L Cholesterol/HDL Ratio 4.2 (3.3-4.4) Vitamin B12 Level 889 PG/ML (193-986) Folate 84.8 NG/ML (8.6-58.9) H Thyroid Stimulating Hormone (TSH) 3.616 uiU/mL (0.358-3.740) Random Vancomycin Level 13.7 ug/mL TB Test (T-Spot) Pending TB Test Nil Control (T-Spot) Pending TB Test Panel A (T-Spot) Pending TB Test Panel B (T-Spot) Pending TB Test Positive Control (T-Spot) Pending Height (Feet): 3 Height (Inches): 0.00 Weight (Pounds): 174 Medications Current Medications Medications (Trade) Dose Ordered Sig/Selene Route PRN Reason Start Time Stop Time Status Last Admin Dose Admin Acetaminophen (Tylenol) 650 mg Q4H PRN GT Fever 06/14/19 17:45 07/14/19 17:44 06/15/19 01:12 Albuterol/ Ipratropium (Albuterol/ Ipratropium) 3 ml Q4H PRN HHN Shortness of Breath 06/14/19 17:45 06/19/19 17:44 Chlorhexidine Gluconate (Ivory-Hex 2%) 1 applic DAILY@2000 TOPIC 06/15/19 20:00 07/15/19 19:59 Dextrose/Sodium Chloride 1,000 ml @ 75 mls/hr [id number] IV 06/15/19 09:15 07/15/19 09:14 06/15/19 11:34 Hydralazine HCl (Apresoline) 25 mg Q6H PRN ORAL For High Blood Pressure 06/14/19 21:00 07/14/19 20:59 Insulin Aspart (NovoLOG) BEFORE MEALS AND HS SUBQ 06/14/19 21:00 07/14/19 20:59 06/15/19 11:43 Lorazepam (Ativan 2mg/ml 1ml) 2 mg Q4H PRN IV For Anxiety 06/14/19 17:45 06/21/19 17:44 Morphine Sulfate (Morphine Sulfate) 4 mg Q4H PRN IVP For Pain 06/14/19 17:45 06/21/19 17:44 Norepinephrine Bitartrate 4 mg/ Dextrose 250 ml @ 0 mls/hr Q24H IV 06/15/19 02:15 07/15/19 02:14 06/15/19 11:35 Ondansetron HCl (Zofran) 4 mg Q6H PRN IVP Nausea & Vomiting 06/14/19 17:45 07/14/19 17:44 Pantoprazole 80 mg/Sodium Chloride 250 ml @ 25 mls/hr Q10H IV 06/14/19 17:00 07/14/19 16:59 06/15/19 03:36 Piperacillin Sod/ Tazobactam Sod 2.25 gm/Dextrose 55 ml @ 110 mls/hr Q8HR IVPB 06/14/19 22:00 06/19/19 21:59 06/15/19 06:39 Vancomycin HCl (Vanco rx to dose) 1 ea DAILY PRN MISC Per rx protocol 06/14/19 19:45 07/14/19 19:44 Vancomycin HCl 1 gm/Dextrose 275 ml @ 183.708 mls/hr ONCE ONCE IVPB 06/15/19 18:00 06/15/19 19:29 Assessment/Plan Problem List: (1) Decubitus skin ulcer Assessment & Plan: Pt presented on admission with multiple full thickness pressure injuries R ,L buttocks and L ischium .R sacrum extending down to lower R buttocks erythematous with multiple areas with slough,(+) maceration along edges and periwound. Wound is malodorous. Wound with sloth that easily removed with non excisional debridement during clean up / washing. L sacrum extending into L lower buttocks erythematous ,macerated with scattered areas of yellow slough through out base of wound.Wound is malodorous. Small amt seropurulent exudate noted.Periwound noted to have darker skin tone that is indurated. L ischium darker than is normal skin tone and indurated with scattered open wound exuding small amt serous exudate. Incontinence associated dermatitis noted to perineum and medial aspects of both upper thigh.Skin is erythematous and denuded. Pt presented on admission in grossly unkempt state. Full thickness pressure injury to sacrum extending to R and L ischial regions.(L)18cm x (W)14cm. Sacral pressure injury measures(L)6cm x (W)8cm x (D)0.4cm. Scattered slough at base of wound. Muscle is palpable. Wound is now viable. Full thickness wounds R and L buttocks with scattered slough. Non-blanchable erythema with additional skin erosions periwound. Moisture Intertrigo noted to bilat breasts folds. abd folds and bilat groin areas. Skin is dry dry and flaky to both AKA stumps. Small partial thickness wound noted to L AKA (L)0.4cm x (W)0.4cm. Base of wound is moist and viable. Wound cleaned at bedside and non-excisional debridement performed of sloth. Underlying tissue fairly healthy. The is now a stage IV sacral decubitus ulcer in the central portion right above the coccyx with palpable musculature. Wound is deteriorated since last admission. Tx.Plan: Cleanse wound Sacrum with saline. Apply Therahoney to Sacrum,R and L buttocks. Apply Moisture Barrier Paste periwound. Cover with Optifoam drsg Daily and prn. Apply Moisture Barrier Paste to folds of both breasts,abd folds ,and bilat groin areas with each incontinence care. Apply Cavilon Skin Barrier to L AKA daily. Reposition at least every 2hours or as tolerated. Off-load heels with pillow. APM/TIAGO mattress overlay. ICD Codes: L89.90 - Pressure ulcer of unspecified site, unspecified stage SNOMED: 751067174 (2) Sepsis Assessment & Plan: 84-year-old female with hypotension, tachycardia, leukocytosis, abnormal labs. Currently in intensive care unit Right femoral central venous catheter recently placed Receiving IV fluid resuscitation On IV antibiotics as per infectious disease Trend labs We will follow with recommendations ICD Codes: A41.9 - Sepsis, unspecified organism SNOMED: 67414634 (3) GI bleed Assessment & Plan: Noted to have hematemesis while in nursing facility. No acute episode of hematemesis at this time stool is noted to be fairly dark Appreciate GI input ICD Codes: K92.2 - Gastrointestinal hemorrhage, unspecified SNOMED: 67613027 Willian Machado Jun 15, 2019 13:04
--- NOTE | 2019-06-15 14:34 | Infectious Diseases Prog Note ---
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 for her that she was treated here . await sputum for AFB smear and culture X3 , and PCR MTB . keep in air born isolation pending work up . EXPECT T spot TO be positive due to prior H/O TB. (2) Decubitus skin ulcer Assessment & Plan: with maceration and necrosis , possibly infected, recommend surgical eval and off loading with local wound care as needed (3) Sepsis Assessment & Plan: due to the above with worsening leukocytosis and fever, will switch zosyn to meropenem and continue vancomycin empirically pending cultures . send stool for C diff (4) GI bleed Assessment & Plan: monitor H/H , transfuse as needed, GI eval for source control (5) ESRD (end stage renal disease) on dialysis Assessment & Plan: continue HD as per renal , antibiotics renally dosed as per pharmacy (6) Anemia Assessment & Plan: due to the above , transfuse blood as needed, GI eval for source control Subjective ROS Limited/Unobtainable: Yes Allergies: Coded Allergies: GABAPENTIN (Unverified Allergy, Unknown, 06/14/19) Subjective she was resting in bed in ICU, quiet, nonverbal, no cough or hemoptysis today, had two bowel movements with loose stool . Objective Vital Signs Last 24 Hour Vital Signs Date Time Temp Pulse Resp B/P (MAP) Pulse Ox O2 Delivery O2 Flow Rate FiO2 06/15/19 14:00 117 28 110/53 (72) 99 06/15/19 13:30 117 27 120/44 (69) 100 06/15/19 13:00 116 32 106/49 (68) 92 06/15/19 12:30 116 30 110/52 (71) 100 06/15/19 12:00 98.4 120 26 110/51 (70) 100 06/15/19 12:00 119 06/15/19 12:00 Room Air 06/15/19 11:35 95/45 06/15/19 11:30 119 26 110/51 (70) 97 06/15/19 11:00 105 25 73/39 (50) 99 06/15/19 10:30 121 23 110/45 (66) 100 06/15/19 10:00 121 24 102/48 (66) 100 06/15/19 09:30 122 22 100/74 (83) 100 06/15/19 09:00 125 22 100/74 (83) 100 06/15/19 08:30 125 28 105/45 (65) 100 06/15/19 08:00 99.1 128 28 99/50 (66) 100 06/15/19 08:00 127 06/15/19 08:00 Room Air 06/15/19 07:30 130 28 104/45 (64) 100 06/15/19 07:00 122 28 92/48 (63) 100 06/15/19 07:00 92/48 06/15/19 06:30 125 28 76/61 (66) 100 06/15/19 06:00 125 25 91/46 (61) 100 06/15/19 05:30 124 25 97/51 (66) 100 06/15/19 05:00 128 25 101/41 (61) 100 06/15/19 04:30 129 26 94/43 (60) 99 06/15/19 04:00 99.6 133 28 94/60 (71) 99 06/15/19 04:00 94/60 06/15/19 04:00 Nasal Cannula 2.0 06/15/19 04:00 129 06/15/19 03:30 131 24 100/39 (59) 100 06/15/19 03:15 113 25 90/41 (57) 99 06/15/19 03:00 70/30 06/15/19 03:00 113 25 70/30 (43) 99 06/15/19 02:45 112 25 71/56 (61) 99 06/15/19 02:15 71/56 06/15/19 02:00 114 24 64/44 (51) 99 06/15/19 01:45 99.6 06/15/19 01:30 114 24 66/33 (44) 100 06/15/19 01:00 100.3 120 24 74/49 (57) 99 06/15/19 00:00 120 24 98/35 (56) 99 06/15/19 00:00 Nasal Cannula 2.0 06/14/19 23:00 126 24 84/56 (65) 100 06/14/19 22:00 123 24 101/80 (87) 100 06/14/19 21:00 121 25 101/80 (87) 100 06/14/19 20:00 100.6 103 24 108/51 (70) 100 06/14/19 20:00 103 06/14/19 20:00 Nasal Cannula 2.0 06/14/19 19:30 123 25 98 Nasal Cannula 2.0 28 06/14/19 19:30 97 Nasal Cannula 2.0 28 06/14/19 19:00 98 22 103/44 (63) 100 06/14/19 18:30 96 23 121/47 (71) 100 06/14/19 18:00 96 21 105/49 (67) 100 06/14/19 17:46 2.0 06/14/19 17:46 Nasal Cannula 2.0 06/14/19 17:30 96 26 117/51 (73) 100 06/14/19 17:04 99.1 97 26 105/52 100 Bi-pap 30 06/14/19 17:00 99.3 95 26 84/65 (71) 100 06/14/19 15:32 99.1 97 26 105/52 100 Bi-pap 30 06/14/19 14:55 100 35 100 Facial 30 06/14/19 14:55 30 06/14/19 14:38 99.1 102 28 127/69 100 Bi-pap 30 Height (Feet): 3 Height (Inches): 0.00 Weight (Pounds): 174 General Appearance: WD/WN, no acute distress HEENT: normocephalic, atraumatic, anicteric, mucous membranes moist, PERRL, supple, no JVD Respiratory/Chest: normal breath sounds, no respiratory distress, no accessory muscle use, decreased breath sounds Cardiovascular: normal peripheral pulses, normal rate, regular rhythm Abdomen: soft, non tender, no organomegaly, no mass, hypoactive bowel sounds, distended, other - G tube site with dark draining Genitourinary: normal external genitalia Extremities: no cyanosis, no clubbing Skin: no rash, no lesions, ulcers - multiple wounds on the sacrm and both buttocks extends to the lower aspect with maceration, necrosis and some purulent discharge Neurologic/Psychiatric: unresponsiveness Lymphatic: no neck adenopathy, no groin adenopathy Musculoskeletal: normal muscle bulk, no effusion Laboratory Tests Test 06/14/19 14:45 06/14/19 18:35 06/15/19 04:13 06/15/19 04:15 Lactic Acid Level 1.70 mmol/L (0.66-2.22) Troponin I 0.038 ng/mL (0.000-0.056) 0.015 ng/mL (0.000-0.056) Lipase 317 U/L (73-393) White Blood Count 24.2 K/UL (4.8-10.8) *H Red Blood Count 3.35 M/UL (4.20-5.40) L Hemoglobin 10.0 G/DL (12.0-16.0) L Hematocrit 32.0 % (37.0-47.0) L Mean Corpuscular Volume 96 FL (80-99) Mean Corpuscular Hemoglobin 29.8 PG (27.0-31.0) Mean Corpuscular Hemoglobin Concent 31.2 G/DL (32.0-36.0) L Red Cell Distribution Width 17.3 % (11.6-14.8) H Platelet Count 385 K/UL (150-450) Mean Platelet Volume 5.8 FL (6.5-10.1) L Neutrophils (%) (Auto) % (45.0-75.0) Lymphocytes (%) (Auto) % (20.0-45.0) Monocytes (%) (Auto) % (1.0-10.0) Eosinophils (%) (Auto) % (0.0-3.0) Basophils (%) (Auto) % (0.0-2.0) Differential Total Cells Counted 100 Neutrophils % (Manual) 88 % (45-75) H Lymphocytes % (Manual) 3 % (20-45) L Monocytes % (Manual) 2 % (1-10) Eosinophils % (Manual) 2 % (0-3) Basophils % (Manual) 0 % (0-2) Band Neutrophils 5 % (0-8) Platelet Estimate Adequate Platelet Morphology Normal Anisocytosis 1+ Sodium Level 143 MMOL/L (136-145) Potassium Level 4.3 MMOL/L (3.5-5.1) Chloride Level 101 MMOL/L (98-107) Carbon Dioxide Level 25 MMOL/L (21-32) Anion Gap 17 mmol/L (5-15) H Blood Urea Nitrogen 117 mg/dL (7-18) H Creatinine 10.3 MG/DL (0.55-1.30) H Estimat Glomerular Filtration Rate mL/min (>60) Glucose Level 152 MG/DL (74-106) H Hemoglobin A1c 5.2 % (4.3-6.0) Uric Acid 9.1 MG/DL (2.6-7.2) H Calcium Level 9.4 MG/DL (8.5-10.1) Phosphorus Level 4.4 MG/DL (2.5-4.9) Magnesium Level 2.5 MG/DL (1.8-2.4) H Iron Level 18 ug/dL (50-175) L Total Iron Binding Capacity 72 ug/dL (250-450) L Percent Iron Saturation 25 % (15-50) Unsaturated Iron Binding 54 ug/dL (112-346) L Ferritin 1372 NG/ML (8-388) H Total Bilirubin 1.2 MG/DL (0.2-1.0) H Direct Bilirubin 0.7 MG/DL (0.0-0.3) H Gamma Glutamyl Transpeptidase 153 U/L (5-85) H Aspartate Amino Transf (AST/SGOT) 75 U/L (15-37) H Alanine Aminotransferase (ALT/SGPT) 40 U/L (12-78) Alkaline Phosphatase 125 U/L (46-116) H Ammonia 27 umol/L (11-32) Total Creatine Kinase 39 U/L (26-308) C-Reactive Protein, Quantitative 16.6 mg/dL (0.00-0.90) H Pro-B-Type Natriuretic Peptide 6411 pg/mL (0-125) H Total Protein 7.2 G/DL (6.4-8.2) Albumin 2.5 G/DL (3.4-5.0) L Globulin 4.7 g/dL Albumin/Globulin Ratio 0.5 (1.0-2.7) L Triglycerides Level 131 MG/DL (30-150) Cholesterol Level 79 MG/DL (< 200) LDL Cholesterol 40 mg/dL (<100) HDL Cholesterol 19 MG/DL (40-60) L Cholesterol/HDL Ratio 4.2 (3.3-4.4) Vitamin B12 Level 889 PG/ML (193-986) Folate 84.8 NG/ML (8.6-58.9) H Thyroid Stimulating Hormone (TSH) 3.616 uiU/mL (0.358-3.740) Random Vancomycin Level 13.7 ug/mL HIV (1&2) Antibody Rapid Negative (NEGATIVE) TB Test (T-Spot) Pending TB Test Nil Control (T-Spot) Pending TB Test Panel A (T-Spot) Pending TB Test Panel B (T-Spot) Pending TB Test Positive Control (T-Spot) Pending Test 06/15/19 11:15 M. tuberculosis Complex DNA (PCR) Pending Current Medications Medications (Trade) Dose Ordered Sig/Selene Route PRN Reason Start Time Stop Time Status Last Admin Dose Admin Acetaminophen (Tylenol) 650 mg Q4H PRN GT Fever 06/14/19 17:45 07/14/19 17:44 06/15/19 01:12 Albuterol/ Ipratropium (Albuterol/ Ipratropium) 3 ml Q4H PRN HHN Shortness of Breath 06/14/19 17:45 06/19/19 17:44 Chlorhexidine Gluconate (Ivory-Hex 2%) 1 applic DAILY@2000 TOPIC 06/15/19 20:00 07/15/19 19:59 Dextrose/Sodium Chloride 1,000 ml @ 75 mls/hr [id number] IV 06/15/19 09:15 07/15/19 09:14 06/15/19 11:34 Hydralazine HCl (Apresoline) 25 mg Q6H PRN ORAL For High Blood Pressure 06/14/19 21:00 07/14/19 20:59 Insulin Aspart (NovoLOG) BEFORE MEALS AND HS SUBQ 06/14/19 21:00 07/14/19 20:59 06/15/19 11:43 Lorazepam (Ativan 2mg/ml 1ml) 2 mg Q4H PRN IV For Anxiety 06/14/19 17:45 06/21/19 17:44 Meropenem 1 gm/ Sodium Chloride 55 ml @ 110 mls/hr ONCE ONCE IVPB 06/15/19 15:30 06/15/19 15:59 Meropenem 500 mg/ Sodium Chloride 55 ml @ 110 mls/hr Q24H IVPB 06/16/19 15:00 06/21/19 14:59 Morphine Sulfate (Morphine Sulfate) 4 mg Q4H PRN IVP For Pain 06/14/19 17:45 06/21/19 17:44 Norepinephrine Bitartrate 4 mg/ Dextrose 250 ml @ 0 mls/hr Q24H IV 06/15/19 02:15 07/15/19 02:14 06/15/19 11:35 Ondansetron HCl (Zofran) 4 mg Q6H PRN IVP Nausea & Vomiting 06/14/19 17:45 07/14/19 17:44 Pantoprazole 80 mg/Sodium Chloride 250 ml @ 25 mls/hr Q10H IV 06/14/19 17:00 07/14/19 16:59 06/15/19 14:19 Vancomycin HCl (Vanco rx to dose) 1 ea DAILY PRN MISC Per rx protocol 06/14/19 19:45 07/14/19 19:44 Vancomycin HCl 1 gm/Dextrose 275 ml @ 183.708 mls/hr ONCE ONCE IVPB 06/15/19 18:00 06/15/19 19:29 Morteza Castillo M.D. Jun 15, 2019 14:34
[2019-06-15] MEDS ORDERED: Meropenem 1 GM in NS 55 ML IVPB ONE (15:30)
[2019-06-15] MEDS ORDERED: Vancomycin 1gm/D5W 275ml IVPB ONE ×2 (18:00)
--- NOTE | 2019-06-15 18:26 | Cardiology Report ---
APPROVED REPORT EKG Measurement Heart [id number] Sinus tachycardia with occasional premature ventricular complexes Inferior infarct, age undetermined Cannot rule out Anterior infarct, age undetermined Abnormal ECG
[2019-06-15] MEDS ORDERED: ALLOPURINOL100 M1 GT (18:31)
[2019-06-15] MEDS ORDERED: PRAVASTATIN SOD20 M1 GT (18:34)
[2019-06-15] MEDS ORDERED: ACETAMINOPHEN325 M1 GT (18:45)
[2019-06-15] MEDS ORDERED: RENVELA0.8 GM GT (18:45)
[2019-06-15] MEDS: Dyna-Hex 2% Top Sol 2oz TOPIC SCH (20:44)
--- NOTE | 2019-06-15 21:45 | Consultation ---
DATE OF CONSULTATION: 06/14/2019 INFECTIOUS DISEASE CONSULTATION CONSULTING PHYSICIAN: Morteza Castillo M.D. REQUESTING PHYSICIAN: Pam Alcantar M.D. REASON FOR CONSULTATION: Sepsis with leukocytosis and cough with hemoptysis. Rule out TB. Recommendation for antimicrobial treatment and further workup. HISTORY OF PRESENT ILLNESS: The patient is an 84-year-old female with past medical history of end-stage renal disease, on hemodialysis, diabetes type 2 with complication, hyperlipidemia, hypertension, gout, CVA, peripheral vascular disease, status post bilateral lower extremity amputation, and history of DVT, was brought in to [facility] emergency room for hematemesis. The patient was sent from [facility] and according to the staff, she had several episodes of hematemesis at the [facility] with bloody secretion was noted also in her G-tube. In ED, the patient was hypotensive with leukocytosis of 17,000, which was concerning for sepsis. So, she was given 1 dose of Zosyn and Infectious Disease consultation was requested for antibiotics treatment and further management. As of note, the patient was noted to have cough with hemoptysis in the emergency room. So, she was placed on airborne isolation to rule out tuberculosis since she had a history of TB which was treated in her childhood. PAST MEDICAL HISTORY: Significant for, 1. Diabetes type 2. 2. End-stage renal disease, on hemodialysis. 3. Hyperlipidemia. 4. Hypertension. 5. Gout. 6. CVA. 7. Peripheral vascular disease. 8. Deep vein thrombosis. PAST SURGICAL HISTORY: She had right upper extremity AV graft placement and bilateral [id number] amputation. MEDICATIONS: The patient received Zosyn in the emergency room. For the rest of her medications, please refer to JAN. ALLERGIES: She is allergic to gabapentin. FAMILY HISTORY: Unable to obtain. SOCIAL HISTORY: The patient lives at a [facility] facility. No recent drugs, tobacco, or alcohol. REVIEW OF SYSTEMS: Unable to obtain. The patient is unresponsive and cannot provide any history at this point. PHYSICAL EXAMINATION: VITAL SIGNS: Temperature 98.4, pulse 96, respirations 26, blood pressure 117/51, and pulse oximetry 100% on nasal cannula. GENERAL: An elderly female, lying in bed, unresponsive, comfortable, not in acute distress. No vomiting or coughing. HEENT: Normocephalic and atraumatic. Pupils minimally reactive to light. Unable to assess oral mucosa. The patient does not follow commands. NECK: Supple. No lymphadenopathy. CARDIOVASCULAR: She is tachycardic. S1 and S2 normal. No murmur or gallop. LUNGS: She had diminished breathing sounds at the bases. No wheezing or rhonchi. Normal breathing efforts. ABDOMEN: Soft, obese, and mildly distended. G-tube site with evidence of melena. No organomegaly. No ascites. EXTREMITIES: She had bilateral ftkah-ili-vwks amputation with clean wounds. SKIN: She had multiple skin wounds with ulceration on both buttocks and the sacrum extending all the way down. Worst one is on the left upper buttock with yellowish necrosis and exudate. Some of them has some purulent discharge. G-tube site also erythematous draining dark melena like secretion. LABORATORY DATA: She had a white count of 17.3, hemoglobin of 9.8, and platelet count of 376,000. BUN of 117 and creatinine of 10.3. AST of 75, ALT of 40, and alkaline phosphatase of 125. C-reactive protein of 16.6. MICROBIOLOGY: Blood culture x2 pending. IMAGING: Chest x-ray showed no acute disease or significant changes. ASSESSMENT AND RECOMMENDATION: 1. Sepsis with shock and leukocytosis. We will start Zosyn and vancomycin empiric treatment with hemodialysis pending blood culture, which was sent from the emergency room. Source could be her sacral pressure wounds, which some of them seems to have purulent discharge. No evidence of pneumonia so far. We will deescalate antibiotics based on her clinical improvement and culture results. 2. Cough with hemoptysis, rule out TB. The patient had history of TB, was treated in her childhood. There is no record here in [facility] for her that she was treated here, unclear where she was treated at this point, but will initiate a full workup for TB including 3 sputum samples for AFB smear and culture and PCR of Mycobacterium tuberculosis to be sent. Keep in airborne isolation for now pending further workup. T-spot was ordered but I expect to be positive since she had TB in her childhood. 3. Multiple skin pressure wounds worse on the left upper buttock extending all the way to the lower aspect of her buttocks and sacral area. Some has maceration with necrosis and purulent discharge. The patient is already on wide-spectrum antibiotics. Recommend surgical evaluation for debridement if needed. Continue offloading and local wound care as per the hospital protocol. 4. Gastrointestinal bleeding. Monitor H and H. Transfuse as needed. GI evaluation for source control and endoscopy. 5. End-stage renal disease. Continue hemodialysis as per Renal and antibiotics renally dosed as per pharmacy. 6. Anemia due to the above. Transfuse blood as needed. GI evaluation for source control and endoscopy. 7. Prognosis overall poor. We will continue to monitor the patient with you closely. Thank you for the consultation. Please feel free to call with any question. Morteza Castillo M.D. DR: KAYCEE JOB#: [id number] CC:
[2019-06-16] VITALS (76 sets, daily range): BP systolic 73–147; BP diastolic 30–89
[2019-06-16] MEDS: D5NS 1,000 ML IV SCH (00:20)
[2019-06-16] MEDS: Pantoprazole 80 MG in NS 250 ML IV SCH ×3 (00:20→20:12)
[2019-06-16 04:59] LABS: HEMATOCRIT 25.4 % (37.0-47.0); HEMOGLOBIN 7.9 G/DL (12.0-16.0); MEAN CORPUSCULAR VOLUME 96 FL (80-99); PLATELET COUNT 251 K/UL (150-450); RED BLOOD COUNT 2.66 M/UL (4.20-5.40); RED CELL DISTRIBUTION WIDTH 17.5 % (11.6-14.8); WHITE BLOOD COUNT 19.1 K/UL (4.8-10.8)
[2019-06-16] MEDS: NovoLOG Insulin Flexpen SUBQ SCH ×4 (05:48→20:53)
[2019-06-16 06:36] LABS: ALANINE AMINOTRANSFERASE 26 U/L (12-78); ALBUMIN/GLOBULIN RATIO 0.5 (1.0-2.7); ALKALINE PHOSPHATASE 90 U/L (46-116); ANION GAP 14 mmol/L (5-15); ASPARTATE AMINO TRANSFERASE 32 U/L (15-37); BILIRUBIN,TOTAL 0.6 MG/DL (0.2-1.0); BLOOD UREA NITROGEN 66 mg/dL (7-18); CALCIUM 8.6 MG/DL (8.5-10.1); CARBON DIOXIDE 25 MMOL/L (21-32); CHLORIDE 97 MMOL/L (98-107); CREATININE 7.1 MG/DL (0.55-1.30); POTASSIUM 3.8 MMOL/L (3.5-5.1); SODIUM 136 MMOL/L (136-145)
--- NOTE | 2019-06-16 08:32 | Diagnostic Imaging Report ---
Indication: Cough Technique: One view of the chest Comparison: none Findings: Lungs and pleural spaces are clear. The heart size is upper limits of normal. Calcified granulomatous node is again seen in the left hilum. A right subclavian venous stent is again demonstrated. No significant interim change Impression: Unchanged, over 2 days, findings as above.
--- NOTE | 2019-06-16 08:56 | General Progress Note ---
Assessment/Plan Status: unchanged Assessment/Plan: 1. Septic Shock - on pressor for blood pressure control. cont IV Abx and f/u cultures. 2. ESRD on HD - HD will be done today. 3. Sacral pressure ulcer - may need debridement. will consult surgery. 4. Upper GI bleed - H/H currently stable. GI is following. 5. Sepsis - cont IV Abx. ID following the patient. 6. HLD - cont home meds. 7. Gout - cont Allopurinol 8. H/O PVD 9. H/O DVT 10. DM II - cont SSI. 11. HTN - off meds due to septic shock. 12. H/o hemoptasis - R/O TB. ID following. AFB Sputum and culture pending. Subjective Date patient seen: Jun 16, 2019 Time patient seen: 08:45 Constitutional: Reports: no symptoms HEENT: Reports: no symptoms Cardiovascular: Reports: other - Hypotensive Respiratory: Reports: no symptoms Gastrointestinal/Abdominal: Reports: other - Peg Tube Genitourinary: Reports: no symptoms Neurologic/Psychiatric: Reports: no symptoms Endocrine: Reports: no symptoms Hematologic/Lymphatic: Reports: anemia Allergies: Coded Allergies: GABAPENTIN (Unverified Allergy, Unknown, 06/14/19) Subjective Patient was seen in ICU. This morning patient is slightly tachycardic and she still on Pressor. afebrile. No nausea or vomiting. She had HD yesterday. Objective Last 24 Hour Vital Signs Date Time Temp Pulse Resp B/P (MAP) Pulse Ox O2 Delivery O2 Flow Rate FiO2 06/16/19 08:33 73/58 06/16/19 08:00 102 28 73/30 (44) 100 06/16/19 07:30 110 39 101/53 (69) 100 06/16/19 07:00 110 37 108/53 (71) 100 06/16/19 06:45 113 28 104/57 (73) 100 06/16/19 06:30 110 27 104/57 (73) 100 06/16/19 06:15 108 27 100/48 (65) 100 06/16/19 06:00 114/46 06/16/19 06:00 108 27 114/46 (68) 100 06/16/19 05:45 110 27 113/47 (69) 100 06/16/19 05:30 110 30 122/49 (73) 100 06/16/19 05:15 110 24 105/54 (71) 100 06/16/19 05:00 108/52 06/16/19 05:00 110 27 108/52 (70) 100 06/16/19 04:45 113 27 94/43 (60) 100 06/16/19 04:30 113 24 86/65 (72) 100 06/16/19 04:15 113 28 113/71 (85) 100 06/16/19 04:00 110 06/16/19 04:00 98.4 110 32 112/40 (64) 99 06/16/19 04:00 Room Air 06/16/19 04:00 112/40 06/16/19 03:45 114 18 97/42 (60) 100 06/16/19 03:30 109 27 113/54 (73) 100 06/16/19 03:15 117 26 111/40 (63) 100 06/16/19 03:00 116 25 126/46 (72) 100 06/16/19 03:00 126/46 06/16/19 02:45 117 26 116/52 (73) 100 06/16/19 02:30 116 26 104/44 (64) 100 06/16/19 02:15 117 28 121/54 (76) 100 06/16/19 02:00 117 26 119/53 (75) 100 06/16/19 02:00 119/53 06/16/19 01:45 117 25 112/50 (70) 100 06/16/19 01:39 102/49 06/16/19 01:30 115 26 103/45 (64) 100 06/16/19 01:15 117 24 102/49 (66) 100 06/16/19 01:00 117 24 116/58 (77) 100 06/16/19 01:00 116/58 06/16/19 00:45 118 25 112/43 (66) 100 06/16/19 00:30 118 24 109/89 (96) 100 06/16/19 00:15 117 25 110/52 (71) 100 06/16/19 00:00 Room Air 06/16/19 00:00 118 06/16/19 00:00 107/51 06/16/19 00:00 99.1 118 25 104/53 (70) 100 06/15/19 23:45 119 27 92/45 (61) 100 06/15/19 23:30 121 27 99/46 (63) 100 06/15/19 23:15 124 26 126/59 (81) 100 06/15/19 23:00 124 25 132/56 (81) 100 06/15/19 23:00 132/56 06/15/19 22:45 125 26 131/55 (80) 100 06/15/19 22:30 124 26 141/66 (91) 100 06/15/19 22:15 123 27 127/60 (82) 100 06/15/19 22:00 122 27 144/63 (90) 100 06/15/19 22:00 127/60 06/15/19 21:46 64/26 06/15/19 21:45 119 28 133/50 (77) 100 06/15/19 21:30 104 24 64/26 (39) 100 06/15/19 21:25 100 Room Air 21 06/15/19 21:24 108 25 100 Room Air 21 06/15/19 21:15 106 24 61/31 (41) 100 06/15/19 21:00 116 25 65/25 (38) 100 06/15/19 21:00 65/25 06/15/19 20:45 123 25 101/53 (69) 100 06/15/19 20:30 123 27 98/78 (85) 100 06/15/19 20:15 124 26 92/55 (67) 100 06/15/19 20:00 125 26 110/46 (67) 100 06/15/19 20:00 110/46 06/15/19 20:00 Room Air 06/15/19 20:00 125 06/15/19 19:45 126 26 112/64 (80) 100 06/15/19 19:30 98.8 127 24 103/44 (63) 100 06/15/19 19:20 126 30 120/54 (76) 100 06/15/19 19:00 125 27 125/37 (66) 100 06/15/19 19:00 73/37 06/15/19 18:45 98/37 06/15/19 18:30 126 16 105/54 (71) 100 06/15/19 18:30 118/57 06/15/19 18:15 112/65 06/15/19 18:00 124 30 96/55 (69) 100 06/15/19 18:00 114/56 06/15/19 17:30 125 26 104/46 (65) 100 06/15/19 17:00 114/56 06/15/19 17:00 127 27 83/65 (71) 100 06/15/19 16:30 112 26 74/46 (55) 100 06/15/19 16:00 Room Air 06/15/19 16:00 135 06/15/19 16:00 98.1 140 26 105/56 (72) 100 06/15/19 16:00 79/45 06/15/19 15:30 140 27 108/58 (75) 100 06/15/19 15:00 93/48 06/15/19 15:00 130 27 93/48 (63) 100 06/15/19 14:30 121 28 99/43 (61) 100 06/15/19 14:00 110/53 06/15/19 14:00 117 28 110/53 (72) 99 06/15/19 13:30 117 27 120/44 (69) 100 06/15/19 13:00 116 32 106/49 (68) 92 06/15/19 13:00 106/49 06/15/19 12:30 116 30 110/52 (71) 100 06/15/19 12:00 98.4 120 26 110/51 (70) 100 06/15/19 12:00 110/57 06/15/19 12:00 119 06/15/19 12:00 Room Air 06/15/19 11:35 95/45 06/15/19 11:30 119 26 110/51 (70) 97 06/15/19 11:00 69/50 06/15/19 11:00 105 25 73/39 (50) 99 06/15/19 10:30 121 23 110/45 (66) 100 06/15/19 10:00 121 24 102/48 (66) 100 06/15/19 10:00 102/48 06/15/19 09:30 122 22 100/74 (83) 100 06/15/19 09:00 100/74 06/15/19 09:00 125 22 100/74 (83) 100 Intake and Output 06/15/19 06/16/19 18:59 06:59 Intake Total 1762.23 ml 1978.938 ml Output Total 0 ml 0 ml Balance 1762.23 ml 1978.938 ml Intake Oral 0 ml 0 ml IV Total 1672.23 ml 1978.938 ml Other 90 ml Output Urine Total 0 ml 0 ml # Bowel Movements 2 2 Laboratory Tests 06/15/19 11:15: M. tuberculosis Complex DNA (PCR) [Pending] 06/15/19 17:30: Troponin I 0.091H 06/16/19 04:05: Troponin I 0.095H, White Blood Count 19.1H, Red Blood Count 2.66L, Hemoglobin 7.9L, Hematocrit 25.4L, Mean Corpuscular Volume 96, Mean Corpuscular Hemoglobin 29.8, Mean Corpuscular Hemoglobin Concent 31.1L, Red Cell Distribution Width 17.5H, Platelet Count 251, Mean Platelet Volume 5.7L, Neutrophils (%) (Auto) , Lymphocytes (%) (Auto) , Monocytes (%) (Auto) , Eosinophils (%) (Auto) , Basophils (%) (Auto) , Differential Total Cells Counted 100, Neutrophils % ( Manual) 86H, Lymphocytes % (Manual) 5L, Monocytes % (Manual) 3, Eosinophils % ( Manual) 1, Basophils % (Manual) 0, Band Neutrophils 5, Nucleated Red Blood Cells 1, Platelet Estimate Adequate, Platelet Morphology Normal, Hypochromasia 1 +, Anisocytosis 1+, Sodium Level 136, Potassium Level 3.8, Chloride Level 97L, Carbon Dioxide Level 25, Anion Gap 14, Blood Urea Nitrogen 66H, Creatinine 7.1H , Estimat Glomerular Filtration Rate , Glucose Level 229H, Calcium Level 8.6, Total Bilirubin 0.6, Aspartate Amino Transf (AST/SGOT) 32, Alanine Aminotransferase (ALT/SGPT) 26, Alkaline Phosphatase 90, Total Protein 6.0L, Albumin 2.0L, Globulin 4.0, Albumin/Globulin Ratio 0.5L Height (Feet): 3 Height (Inches): 0.00 Weight (Pounds): 150 General Appearance: no apparent distress, alert EENT: normal ENT inspection Neck: non-tender, supple Cardiovascular: tachycardia Respiratory/Chest: lungs clear, normal breath sounds Abdomen: normal bowel sounds, non tender, soft Extremities: other - s/p Bilateral above the knee amputation Neurologic: responsive Skin: warm/dry Lymphatic: normal anterior cervical (L), normal anterior cervical (R), normal posterior cervical (L), normal posterior cervical (R), normal submandibular (L) , normal submandibular (R), normal supraclavicular (L), normal supraclavicular ( R), normal axillary (L), normal axillary (R), normal inguinal (L), normal inguinal (R), normal other Pam Alcantar MD Jun 16, 2019 08:56
--- NOTE | 2019-06-16 09:10 | Nephrology Progress Note ---
Assessment/Plan Problem List: (1) ESRD (end stage renal disease) on dialysis (2) Septic shock (3) GI bleed (4) Decubitus skin ulcer (5) G tube feedings (6) DM (diabetes mellitus) (7) HTN (hypertension) Assessment ESRD Hematemesis Decubs Anemia Leukocytosis fever / Sepsis / shock h/o Pancreatitis h/o DM & HTN Plan HD done 06/15 next 06/17 transfuse one unit Check Lipase Keep BP above 100 syst per consultants Subjective ROS Limited/Unobtainable: No Constitutional: Reports: malaise Objective Objective Last 24 Hour Vital Signs Date Time Temp Pulse Resp B/P (MAP) Pulse Ox O2 Delivery O2 Flow Rate FiO2 06/16/19 08:33 73/58 06/16/19 08:00 102 28 73/30 (44) 100 06/16/19 07:30 110 39 101/53 (69) 100 06/16/19 07:00 110 37 108/53 (71) 100 06/16/19 06:45 113 28 104/57 (73) 100 06/16/19 06:30 110 27 104/57 (73) 100 06/16/19 06:15 108 27 100/48 (65) 100 06/16/19 06:00 114/46 06/16/19 06:00 108 27 114/46 (68) 100 06/16/19 05:45 110 27 113/47 (69) 100 06/16/19 05:30 110 30 122/49 (73) 100 06/16/19 05:15 110 24 105/54 (71) 100 06/16/19 05:00 108/52 06/16/19 05:00 110 27 108/52 (70) 100 06/16/19 04:45 113 27 94/43 (60) 100 06/16/19 04:30 113 24 86/65 (72) 100 06/16/19 04:15 113 28 113/71 (85) 100 06/16/19 04:00 110 06/16/19 04:00 98.4 110 32 112/40 (64) 99 06/16/19 04:00 Room Air 06/16/19 04:00 112/40 06/16/19 03:45 114 18 97/42 (60) 100 06/16/19 03:30 109 27 113/54 (73) 100 06/16/19 03:15 117 26 111/40 (63) 100 06/16/19 03:00 116 25 126/46 (72) 100 06/16/19 03:00 126/46 06/16/19 02:45 117 26 116/52 (73) 100 06/16/19 02:30 116 26 104/44 (64) 100 06/16/19 02:15 117 28 121/54 (76) 100 06/16/19 02:00 117 26 119/53 (75) 100 06/16/19 02:00 119/53 06/16/19 01:45 117 25 112/50 (70) 100 06/16/19 01:39 102/49 06/16/19 01:30 115 26 103/45 (64) 100 06/16/19 01:15 117 24 102/49 (66) 100 06/16/19 01:00 117 24 116/58 (77) 100 06/16/19 01:00 116/58 06/16/19 00:45 118 25 112/43 (66) 100 06/16/19 00:30 118 24 109/89 (96) 100 06/16/19 00:15 117 25 110/52 (71) 100 06/16/19 00:00 Room Air 06/16/19 00:00 118 06/16/19 00:00 107/51 06/16/19 00:00 99.1 118 25 104/53 (70) 100 06/15/19 23:45 119 27 92/45 (61) 100 06/15/19 23:30 121 27 99/46 (63) 100 06/15/19 23:15 124 26 126/59 (81) 100 06/15/19 23:00 124 25 132/56 (81) 100 06/15/19 23:00 132/56 06/15/19 22:45 125 26 131/55 (80) 100 06/15/19 22:30 124 26 141/66 (91) 100 06/15/19 22:15 123 27 127/60 (82) 100 06/15/19 22:00 122 27 144/63 (90) 100 06/15/19 22:00 127/60 06/15/19 21:46 64/26 06/15/19 21:45 119 28 133/50 (77) 100 06/15/19 21:30 104 24 64/26 (39) 100 06/15/19 21:25 100 Room Air 21 06/15/19 21:24 108 25 100 Room Air 21 06/15/19 21:15 106 24 61/31 (41) 100 06/15/19 21:00 116 25 65/25 (38) 100 06/15/19 21:00 65/25 06/15/19 20:45 123 25 101/53 (69) 100 06/15/19 20:30 123 27 98/78 (85) 100 06/15/19 20:15 124 26 92/55 (67) 100 06/15/19 20:00 125 26 110/46 (67) 100 06/15/19 20:00 110/46 06/15/19 20:00 Room Air 06/15/19 20:00 125 06/15/19 19:45 126 26 112/64 (80) 100 06/15/19 19:30 98.8 127 24 103/44 (63) 100 06/15/19 19:20 126 30 120/54 (76) 100 06/15/19 19:00 125 27 125/37 (66) 100 06/15/19 19:00 73/37 06/15/19 18:45 98/37 06/15/19 18:30 126 16 105/54 (71) 100 06/15/19 18:30 118/57 06/15/19 18:15 112/65 06/15/19 18:00 124 30 96/55 (69) 100 06/15/19 18:00 114/56 06/15/19 17:30 125 26 104/46 (65) 100 06/15/19 17:00 114/56 06/15/19 17:00 127 27 83/65 (71) 100 06/15/19 16:30 112 26 74/46 (55) 100 06/15/19 16:00 Room Air 06/15/19 16:00 135 06/15/19 16:00 98.1 140 26 105/56 (72) 100 06/15/19 16:00 79/45 06/15/19 15:30 140 27 108/58 (75) 100 06/15/19 15:00 93/48 06/15/19 15:00 130 27 93/48 (63) 100 06/15/19 14:30 121 28 99/43 (61) 100 06/15/19 14:00 110/53 06/15/19 14:00 117 28 110/53 (72) 99 06/15/19 13:30 117 27 120/44 (69) 100 06/15/19 13:00 116 32 106/49 (68) 92 06/15/19 13:00 106/49 06/15/19 12:30 116 30 110/52 (71) 100 06/15/19 12:00 98.4 120 26 110/51 (70) 100 06/15/19 12:00 110/57 06/15/19 12:00 119 06/15/19 12:00 Room Air 06/15/19 11:35 95/45 06/15/19 11:30 119 26 110/51 (70) 97 06/15/19 11:00 69/50 06/15/19 11:00 105 25 73/39 (50) 99 06/15/19 10:30 121 23 110/45 (66) 100 06/15/19 10:00 121 24 102/48 (66) 100 06/15/19 10:00 102/48 06/15/19 09:30 122 22 100/74 (83) 100 Intake and Output 06/15/19 06/16/19 18:59 06:59 Intake Total 1762.23 ml 1978.938 ml Output Total 0 ml 0 ml Balance 1762.23 ml 1979.938 ml Intake Oral 0 ml 0 ml IV Total 1672.23 ml 1978.938 ml Other 90 ml Output Urine Total 0 ml 0 ml # Bowel Movements 2 2 Laboratory Tests 06/15/19 11:15: M. tuberculosis Complex DNA (PCR) [Pending] 06/15/19 17:30: Troponin I 0.091H 06/16/19 04:05: Troponin I 0.095H, White Blood Count 19.1H, Red Blood Count 2.66L, Hemoglobin 7.9L, Hematocrit 25.4L, Mean Corpuscular Volume 96, Mean Corpuscular Hemoglobin 29.8, Mean Corpuscular Hemoglobin Concent 31.1L, Red Cell Distribution Width 17.5H, Platelet Count 251, Mean Platelet Volume 5.7L, Neutrophils (%) (Auto) , Lymphocytes (%) (Auto) , Monocytes (%) (Auto) , Eosinophils (%) (Auto) , Basophils (%) (Auto) , Differential Total Cells Counted 100, Neutrophils % ( Manual) 86H, Lymphocytes % (Manual) 5L, Monocytes % (Manual) 3, Eosinophils % ( Manual) 1, Basophils % (Manual) 0, Band Neutrophils 5, Nucleated Red Blood Cells 1, Platelet Estimate Adequate, Platelet Morphology Normal, Hypochromasia 1 +, Anisocytosis 1+, Sodium Level 136, Potassium Level 3.8, Chloride Level 97L, Carbon Dioxide Level 25, Anion Gap 14, Blood Urea Nitrogen 66H, Creatinine 7.1H , Estimat Glomerular Filtration Rate , Glucose Level 229H, Calcium Level 8.6, Total Bilirubin 0.6, Aspartate Amino Transf (AST/SGOT) 32, Alanine Aminotransferase (ALT/SGPT) 26, Alkaline Phosphatase 90, Total Protein 6.0L, Albumin 2.0L, Globulin 4.0, Albumin/Globulin Ratio 0.5L Height (Feet): 3 Height (Inches): 0.00 Weight (Pounds): 150 General Appearance: no apparent distress, lethargic Cardiovascular: tachycardia Respiratory/Chest: decreased breath sounds Abdomen: soft Matthew Rich MD Jun 16, 2019 09:10
--- NOTE | 2019-06-16 09:30 | History and Physical Report ---
DATE OF ADMISSION: 06/14/2019 CHIEF COMPLAINT: Hematemesis. HISTORY OF PRESENT ILLNESS: This is an 84-year-old female with a history of end-stage renal disease, on hemodialysis three times a week with the last dialysis was four days ago. The patient lives in [facility] and was brought in for complaint of vomiting blood today in the snf. The patient has a history of dementia and aphasic, and most of the history has been obtained previously by the son and chart. PAST MEDICAL HISTORY: Includes history of diabetes, hypertension, end-stage renal disease on hemodialysis, hyperlipidemia, peripheral vascular disease, history of CVA and DVT, anemia due to chronic kidney disease, and gout. 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 PAST SURGICAL HISTORY: History of right arm arteriovenous graft, bilateral xtjpp-tnr-ymoa amputation, and PEG placement for G-tube feeding. CURRENT MEDICATIONS: Please check with chart for current medication at the snf. ALLERGIES: Gabapentin. SOCIAL HISTORY: The patient resides at the [facility]. No previous history of smoking, drug, or alcohol use. REVIEW OF SYSTEMS: Negative except for HPI. PHYSICAL EXAMINATION: VITAL SIGNS: Pulse 96, respirations 21, and blood pressure 105/49. HEENT: Normocephalic, normochromic. Extraocular muscles intact. [place] conjunctivae. Anicteric sclerae. NECK: Supple. No lymphadenopathy. LUNGS: Clear to auscultation. HEART: At this point, normal sinus rhythm with a rate of 96. No murmur. No gallop. ABDOMEN: Soft and nontender. G-tube in place in the upper abdomen. EXTREMITIES: Status post bilateral bjlty-ydt-yurm amputation. LABORATORY AND DIAGNOSTIC DATA: Include WBC 17.3, hemoglobin 9.8, hematocrit 31.2, platelet count 376, neutrophils 77, and lymphocytes 16.4. Sodium 142, potassium 4.5, chloride 99, bicarb 32, BUN 103, and creatinine 9.3. Glucose is 136. Lactic acid 2.1. Calcium 9.6, phosphorus 5.2, magnesium 2.7. AST 45, ALT 28, and alkaline phosphatase 146. Creatine kinase is 13. Troponin 0.042. BNP is 5639. Albumin 2.5. PT is 10.7, INR 1, and PTT 31. Chest x-ray, no acute disease or significant change. EKG showed sinus tachycardia. IMPRESSION: 1. This 84-year-old female with aphasia who will be admitted for gastrointestinal bleed with hematemesis at the snf. The patient typed and crossed and monitored H and H closely for any sign of further blood loss and need for any blood transfusion. The patient's GI was consulted with Dr. Perales. The patient will have upper endoscopy done. 2. The patient has a decubitus skin ulcer, possibly infected. We will try to call surgical evaluation for debridement. 3. Sepsis. We will start the patient on intravenous antibiotic and ID was consulted. The patient will be started on Zosyn and vancomycin empirically and culture being followed up. 4. End-stage renal disease, on hemodialysis. We will restart hemodialysis and Dr. Rich will see her from Nephrology. 5. Hypertension. We will continue home medications. 6. Hypercholesterolemia. Again, continue the home medications. 7. Diabetes type 2. We will start the patient on sliding scale insulin. 8. Gout. We will continue the patient on allopurinol as outpatient. 9. History of CVA. 10. History of peripheral vascular disease and knee amputation. 11. History of DVT previously. PLAN: The patient will be admitted for a minimum of two-night stay for the diagnosis of upper GI bleed and we will follow up the patient daily. Currently, the patient will be admitted in the ICU. Richard Shields JOB#: [id number] CC:
--- NOTE | 2019-06-16 10:41 | Pulmonolgy Critical Care Note ---
Critical Care - Asmt/Plan Problems: (1) Septic shock (2) GI bleed (3) ESRD (end stage renal disease) on dialysis (4) Decubitus skin ulcer (5) HTN (hypertension) (6) DM (diabetes mellitus) (7) G tube feedings (8) Colonization with VRE (vancomycin-resistant enterococcus) Respiratory: monitor respiratory rate, adjust FIO2, CXR Cardiac: continue pressors, continue to monitor HR/BP Renal: F/U I&O, keep IV fluid, other Infectious Disease: check cultures, continue antibiotics Gastrointestinal: hold feedings Endocrine: continue sliding scale insulin Neurologic: PRN Ativan, PRN Morphine Affect: PRN ativan Prophylaxis: Protonix, SCDs Time Spent (Minutes): 40 Notes Reviewed: historian dramatic arts, ID Discussed with: nurses, consultants, case brieferbroiler manager - Objective Last 24 Hour Vital Signs Date Time Temp Pulse Resp B/P (MAP) Pulse Ox O2 Delivery O2 Flow Rate FiO2 06/16/19 08:33 73/58 06/16/19 08:00 102 28 73/30 (44) 100 06/16/19 08:00 Room Air 06/16/19 07:30 110 39 101/53 (69) 100 06/16/19 07:00 110 37 108/53 (71) 100 06/16/19 06:45 113 28 104/57 (73) 100 06/16/19 06:30 110 27 104/57 (73) 100 06/16/19 06:15 108 27 100/48 (65) 100 06/16/19 06:00 114/46 06/16/19 06:00 108 27 114/46 (68) 100 06/16/19 05:45 110 27 113/47 (69) 100 06/16/19 05:30 110 30 122/49 (73) 100 06/16/19 05:15 110 24 105/54 (71) 100 06/16/19 05:00 108/52 06/16/19 05:00 110 27 108/52 (70) 100 06/16/19 04:45 113 27 94/43 (60) 100 06/16/19 04:30 113 24 86/65 (72) 100 06/16/19 04:15 113 28 113/71 (85) 100 06/16/19 04:00 110 06/16/19 04:00 98.4 110 32 112/40 (64) 99 06/16/19 04:00 Room Air 06/16/19 04:00 112/40 06/16/19 03:45 114 18 97/42 (60) 100 06/16/19 03:30 109 27 113/54 (73) 100 06/16/19 03:15 117 26 111/40 (63) 100 06/16/19 03:00 116 25 126/46 (72) 100 06/16/19 03:00 126/46 06/16/19 02:45 117 26 116/52 (73) 100 06/16/19 02:30 116 26 104/44 (64) 100 06/16/19 02:15 117 28 121/54 (76) 100 06/16/19 02:00 117 26 119/53 (75) 100 06/16/19 02:00 119/53 06/16/19 01:45 117 25 112/50 (70) 100 06/16/19 01:39 102/49 06/16/19 01:30 115 26 103/45 (64) 100 06/16/19 01:15 117 24 102/49 (66) 100 06/16/19 01:00 117 24 116/58 (77) 100 06/16/19 01:00 116/58 06/16/19 00:45 118 25 112/43 (66) 100 06/16/19 00:30 118 24 109/89 (96) 100 06/16/19 00:15 117 25 110/52 (71) 100 06/16/19 00:00 Room Air 06/16/19 00:00 118 06/16/19 00:00 107/51 06/16/19 00:00 99.1 118 25 104/53 (70) 100 06/15/19 23:45 119 27 92/45 (61) 100 06/15/19 23:30 121 27 99/46 (63) 100 06/15/19 23:15 124 26 126/59 (81) 100 06/15/19 23:00 124 25 132/56 (81) 100 06/15/19 23:00 132/56 06/15/19 22:45 125 26 131/55 (80) 100 06/15/19 22:30 124 26 141/66 (91) 100 06/15/19 22:15 123 27 127/60 (82) 100 06/15/19 22:00 122 27 144/63 (90) 100 06/15/19 22:00 127/60 06/15/19 21:46 64/26 06/15/19 21:45 119 28 133/50 (77) 100 06/15/19 21:30 104 24 64/26 (39) 100 06/15/19 21:25 100 Room Air 21 06/15/19 21:24 108 25 100 Room Air 21 06/15/19 21:15 106 24 61/31 (41) 100 06/15/19 21:00 116 25 65/25 (38) 100 06/15/19 21:00 65/25 06/15/19 20:45 123 25 101/53 (69) 100 06/15/19 20:30 123 27 98/78 (85) 100 06/15/19 20:15 124 26 92/55 (67) 100 06/15/19 20:00 125 26 110/46 (67) 100 06/15/19 20:00 110/46 06/15/19 20:00 Room Air 06/15/19 20:00 125 06/15/19 19:45 126 26 112/64 (80) 100 06/15/19 19:30 98.8 127 24 103/44 (63) 100 06/15/19 19:20 126 30 120/54 (76) 100 06/15/19 19:00 125 27 125/37 (66) 100 06/15/19 19:00 73/37 06/15/19 18:45 98/37 06/15/19 18:30 126 16 105/54 (71) 100 06/15/19 18:30 118/57 06/15/19 18:15 112/65 06/15/19 18:00 124 30 96/55 (69) 100 06/15/19 18:00 114/56 06/15/19 17:30 125 26 104/46 (65) 100 06/15/19 17:00 114/56 06/15/19 17:00 127 27 83/65 (71) 100 06/15/19 16:30 112 26 74/46 (55) 100 06/15/19 16:00 Room Air 06/15/19 16:00 135 06/15/19 16:00 98.1 140 26 105/56 (72) 100 06/15/19 16:00 79/45 06/15/19 15:30 140 27 108/58 (75) 100 06/15/19 15:00 93/48 06/15/19 15:00 130 27 93/48 (63) 100 06/15/19 14:30 121 28 99/43 (61) 100 06/15/19 14:00 110/53 06/15/19 14:00 117 28 110/53 (72) 99 06/15/19 13:30 117 27 120/44 (69) 100 06/15/19 13:00 116 32 106/49 (68) 92 06/15/19 13:00 106/49 06/15/19 12:30 116 30 110/52 (71) 100 06/15/19 12:00 98.4 120 26 110/51 (70) 100 06/15/19 12:00 110/57 06/15/19 12:00 119 06/15/19 12:00 Room Air 06/15/19 11:35 95/45 06/15/19 11:30 119 26 110/51 (70) 97 06/15/19 11:00 69/50 06/15/19 11:00 105 25 73/39 (50) 99 Status: awake Condition: critical Neck: full ROM Lungs: clear Heart: HR/BP stable, regular Abdomen: soft, active bowel sounds, feeding tube Extremities: no C/C/E Decubiti: location Micro: Microbiology Date/Time Source Procedure Growth Status 06/14/19 13:40 Blood Blood Culture - Preliminary NO GROWTH AFTER 24 HOURS Resulted 06/14/19 13:40 Blood Blood Culture - Preliminary NO GROWTH AFTER 24 HOURS Resulted 06/16/19 04:15 Stool Clostridium difficile Toxin Assay - Final Complete 06/14/19 14:30 Rectum VRE Culture - Final Enterococcus Faecalis - Vre Enterococcus Faecium - Vre Resulted 06/14/19 14:30 Rectum Pending Resulted Accucheck: 250 Critical Care - Subjective ROS Limited/Unobtainable: Yes Condition: critical EKG Rhythm: Sinus Rhythm FI02: 21 Sputum Amount: None I&O: Intake and Output 06/15/19 06/16/19 19:00 07:00 Intake Total 1718.46 ml 1876.208 ml Output Total 0 ml 0 ml Balance 1718.46 ml 1876.208 ml Intake Oral 0 ml IV Total 1628.46 ml 1876.208 ml Other 90 ml Output Urine Total 0 ml 0 ml # Bowel Movements 1 2 Labs: Laboratory Tests Test 06/15/19 11:15 06/15/19 17:30 06/16/19 04:05 M. tuberculosis Complex DNA (PCR) Pending Troponin I 0.091 ng/mL (0.000-0.056) 0.095 ng/mL (0.000-0.056) White Blood Count 19.1 K/UL (4.8-10.8) H Red Blood Count 2.66 M/UL (4.20-5.40) L Hemoglobin 7.9 G/DL (12.0-16.0) L Hematocrit 25.4 % (37.0-47.0) L Mean Corpuscular Volume 96 FL (80-99) Mean Corpuscular Hemoglobin 29.8 PG (27.0-31.0) Mean Corpuscular Hemoglobin Concent 31.1 G/DL (32.0-36.0) L Red Cell Distribution Width 17.5 % (11.6-14.8) H Platelet Count 251 K/UL (150-450) Mean Platelet Volume 5.7 FL (6.5-10.1) L Neutrophils (%) (Auto) % (45.0-75.0) Lymphocytes (%) (Auto) % (20.0-45.0) Monocytes (%) (Auto) % (1.0-10.0) Eosinophils (%) (Auto) % (0.0-3.0) Basophils (%) (Auto) % (0.0-2.0) Differential Total Cells Counted 100 Neutrophils % (Manual) 86 % (45-75) H Lymphocytes % (Manual) 5 % (20-45) L Monocytes % (Manual) 3 % (1-10) Eosinophils % (Manual) 1 % (0-3) Basophils % (Manual) 0 % (0-2) Band Neutrophils 5 % (0-8) Nucleated Red Blood Cells 1 /100 WBC Platelet Estimate Adequate Platelet Morphology Normal Hypochromasia 1+ Anisocytosis 1+ Sodium Level 136 MMOL/L (136-145) Potassium Level 3.8 MMOL/L (3.5-5.1) Chloride Level 97 MMOL/L (98-107) L Carbon Dioxide Level 25 MMOL/L (21-32) Anion Gap 14 mmol/L (5-15) Blood Urea Nitrogen 66 mg/dL (7-18) H Creatinine 7.1 MG/DL (0.55-1.30) H Estimat Glomerular Filtration Rate mL/min (>60) Glucose Level 229 MG/DL (74-106) H Calcium Level 8.6 MG/DL (8.5-10.1) Total Bilirubin 0.6 MG/DL (0.2-1.0) Aspartate Amino Transf (AST/SGOT) 32 U/L (15-37) Alanine Aminotransferase (ALT/SGPT) 26 U/L (12-78) Alkaline Phosphatase 90 U/L (46-116) Total Protein 6.0 G/DL (6.4-8.2) L Albumin 2.0 G/DL (3.4-5.0) L Globulin 4.0 g/dL Albumin/Globulin Ratio 0.5 (1.0-2.7) L Rosemary Lui MD Jun 16, 2019 10:41
--- NOTE | 2019-06-16 11:00 | GI Progress Note ---
Assessment/Plan Problems: (1) GI bleed ICD Codes: K92.2 - Gastrointestinal hemorrhage, unspecified SNOMED: 78684210 (2) Anemia due to chronic kidney disease ICD Codes: N18.9 - Chronic kidney disease, unspecified; D63.1 - Anemia in chronic kidney disease SNOMED: 445409664 (3) Septic shock ICD Codes: A41.9 - Sepsis, unspecified organism; R65.21 - Severe sepsis with septic shock SNOMED: 66269291 (4) G tube feedings ICD Codes: Z93.1 - Gastrostomy status SNOMED: 877676479, 776789738, 166029710 Status: unchanged Status Narrative Discussed with Dr. Perales. Assessment/Plan Plan for EGD when stable, currently on pressor. airborne precautions r/o TB Maintain n.p.o. plus IV fluids Continue Protonix drip Monitor H&H, transfuse as needed to maintain hemoglobin above 7. Respiratory support follow labs The patient was seen and examined at bedside and all new and available data was reviewed in the patients chart. I agree with the above findings, impression and plan. (Patient seen earlier today. Signature stamp does not reflect patient encounter time.). - Ezequiel Perales MD Subjective Subjective limited Objective Last 24 Hour Vital Signs Date Time Temp Pulse Resp B/P (MAP) Pulse Ox O2 Delivery O2 Flow Rate FiO2 06/16/19 10:00 113 31 117/46 (69) 100 06/16/19 09:30 112 28 105/45 (65) 100 06/16/19 09:00 109 32 112/46 (68) 100 06/16/19 08:33 73/58 06/16/19 08:30 98.6 101 25 101/51 (68) 100 06/16/19 08:00 102 28 73/30 (44) 100 06/16/19 08:00 Room Air 06/16/19 07:30 110 39 101/53 (69) 100 06/16/19 07:00 110 37 108/53 (71) 100 06/16/19 06:45 113 28 104/57 (73) 100 06/16/19 06:30 110 27 104/57 (73) 100 06/16/19 06:15 108 27 100/48 (65) 100 06/16/19 06:00 114/46 06/16/19 06:00 108 27 114/46 (68) 100 06/16/19 05:45 110 27 113/47 (69) 100 06/16/19 05:30 110 30 122/49 (73) 100 06/16/19 05:15 110 24 105/54 (71) 100 06/16/19 05:00 108/52 06/16/19 05:00 110 27 108/52 (70) 100 06/16/19 04:45 113 27 94/43 (60) 100 06/16/19 04:30 113 24 86/65 (72) 100 06/16/19 04:15 113 28 113/71 (85) 100 06/16/19 04:00 110 06/16/19 04:00 98.4 110 32 112/40 (64) 99 06/16/19 04:00 Room Air 06/16/19 04:00 112/40 06/16/19 03:45 114 18 97/42 (60) 100 06/16/19 03:30 109 27 113/54 (73) 100 06/16/19 03:15 117 26 111/40 (63) 100 06/16/19 03:00 116 25 126/46 (72) 100 06/16/19 03:00 126/46 06/16/19 02:45 117 26 116/52 (73) 100 06/16/19 02:30 116 26 104/44 (64) 100 06/16/19 02:15 117 28 121/54 (76) 100 06/16/19 02:00 117 26 119/53 (75) 100 06/16/19 02:00 119/53 06/16/19 01:45 117 25 112/50 (70) 100 06/16/19 01:39 102/49 06/16/19 01:30 115 26 103/45 (64) 100 06/16/19 01:15 117 24 102/49 (66) 100 06/16/19 01:00 117 24 116/58 (77) 100 06/16/19 01:00 116/58 06/16/19 00:45 118 25 112/43 (66) 100 06/16/19 00:30 118 24 109/89 (96) 100 06/16/19 00:15 117 25 110/52 (71) 100 06/16/19 00:00 Room Air 06/16/19 00:00 118 06/16/19 00:00 107/51 06/16/19 00:00 99.1 118 25 104/53 (70) 100 06/15/19 23:45 119 27 92/45 (61) 100 06/15/19 23:30 121 27 99/46 (63) 100 06/15/19 23:15 124 26 126/59 (81) 100 06/15/19 23:00 124 25 132/56 (81) 100 06/15/19 23:00 132/56 06/15/19 22:45 125 26 131/55 (80) 100 06/15/19 22:30 124 26 141/66 (91) 100 06/15/19 22:15 123 27 127/60 (82) 100 06/15/19 22:00 122 27 144/63 (90) 100 06/15/19 22:00 127/60 06/15/19 21:46 64/26 06/15/19 21:45 119 28 133/50 (77) 100 06/15/19 21:30 104 24 64/26 (39) 100 06/15/19 21:25 100 Room Air 21 06/15/19 21:24 108 25 100 Room Air 21 06/15/19 21:15 106 24 61/31 (41) 100 06/15/19 21:00 116 25 65/25 (38) 100 06/15/19 21:00 65/25 06/15/19 20:45 123 25 101/53 (69) 100 06/15/19 20:30 123 27 98/78 (85) 100 06/15/19 20:15 124 26 92/55 (67) 100 06/15/19 20:00 125 26 110/46 (67) 100 06/15/19 20:00 110/46 06/15/19 20:00 Room Air 06/15/19 20:00 125 06/15/19 19:45 126 26 112/64 (80) 100 06/15/19 19:30 98.8 127 24 103/44 (63) 100 06/15/19 19:20 126 30 120/54 (76) 100 06/15/19 19:00 125 27 125/37 (66) 100 06/15/19 19:00 73/37 06/15/19 18:45 98/37 06/15/19 18:30 126 16 105/54 (71) 100 06/15/19 18:30 118/57 06/15/19 18:15 112/65 06/15/19 18:00 124 30 96/55 (69) 100 06/15/19 18:00 114/56 06/15/19 17:30 125 26 104/46 (65) 100 06/15/19 17:00 114/56 06/15/19 17:00 127 27 83/65 (71) 100 06/15/19 16:30 112 26 74/46 (55) 100 06/15/19 16:00 Room Air 06/15/19 16:00 135 06/15/19 16:00 98.1 140 26 105/56 (72) 100 06/15/19 16:00 79/45 06/15/19 15:30 140 27 108/58 (75) 100 06/15/19 15:00 93/48 06/15/19 15:00 130 27 93/48 (63) 100 06/15/19 14:30 121 28 99/43 (61) 100 06/15/19 14:00 110/53 06/15/19 14:00 117 28 110/53 (72) 99 06/15/19 13:30 117 27 120/44 (69) 100 06/15/19 13:00 116 32 106/49 (68) 92 06/15/19 13:00 106/49 06/15/19 12:30 116 30 110/52 (71) 100 06/15/19 12:00 98.4 120 26 110/51 (70) 100 06/15/19 12:00 110/57 06/15/19 12:00 119 06/15/19 12:00 Room Air 06/15/19 11:35 95/45 06/15/19 11:30 119 26 110/51 (70) 97 Intake and Output 06/15/19 06/16/19 19:00 07:00 Intake Total 1718.46 ml 1931.208 ml Output Total 0 ml 0 ml Balance 1718.46 ml 1931.208 ml Intake Oral 0 ml IV Total 1628.46 ml 1931.208 ml Other 90 ml Output Urine Total 0 ml 0 ml # Bowel Movements 1 2 Laboratory Tests Test 06/15/19 11:15 06/15/19 17:30 06/16/19 04:05 M. tuberculosis Complex DNA (PCR) Pending Troponin I 0.091 ng/mL (0.000-0.056) 0.095 ng/mL (0.000-0.056) White Blood Count 19.1 K/UL (4.8-10.8) H Red Blood Count 2.66 M/UL (4.20-5.40) L Hemoglobin 7.9 G/DL (12.0-16.0) L Hematocrit 25.4 % (37.0-47.0) L Mean Corpuscular Volume 96 FL (80-99) Mean Corpuscular Hemoglobin 29.8 PG (27.0-31.0) Mean Corpuscular Hemoglobin Concent 31.1 G/DL (32.0-36.0) L Red Cell Distribution Width 17.5 % (11.6-14.8) H Platelet Count 251 K/UL (150-450) Mean Platelet Volume 5.7 FL (6.5-10.1) L Neutrophils (%) (Auto) % (45.0-75.0) Lymphocytes (%) (Auto) % (20.0-45.0) Monocytes (%) (Auto) % (1.0-10.0) Eosinophils (%) (Auto) % (0.0-3.0) Basophils (%) (Auto) % (0.0-2.0) Differential Total Cells Counted 100 Neutrophils % (Manual) 86 % (45-75) H Lymphocytes % (Manual) 5 % (20-45) L Monocytes % (Manual) 3 % (1-10) Eosinophils % (Manual) 1 % (0-3) Basophils % (Manual) 0 % (0-2) Band Neutrophils 5 % (0-8) Nucleated Red Blood Cells 1 /100 WBC Platelet Estimate Adequate Platelet Morphology Normal Hypochromasia 1+ Anisocytosis 1+ Sodium Level 136 MMOL/L (136-145) Potassium Level 3.8 MMOL/L (3.5-5.1) Chloride Level 97 MMOL/L (98-107) L Carbon Dioxide Level 25 MMOL/L (21-32) Anion Gap 14 mmol/L (5-15) Blood Urea Nitrogen 66 mg/dL (7-18) H Creatinine 7.1 MG/DL (0.55-1.30) H Estimat Glomerular Filtration Rate mL/min (>60) Glucose Level 229 MG/DL (74-106) H Calcium Level 8.6 MG/DL (8.5-10.1) Total Bilirubin 0.6 MG/DL (0.2-1.0) Aspartate Amino Transf (AST/SGOT) 32 U/L (15-37) Alanine Aminotransferase (ALT/SGPT) 26 U/L (12-78) Alkaline Phosphatase 90 U/L (46-116) Total Protein 6.0 G/DL (6.4-8.2) L Albumin 2.0 G/DL (3.4-5.0) L Globulin 4.0 g/dL Albumin/Globulin Ratio 0.5 (1.0-2.7) L Microbiology Date/Time Source Procedure Growth Status 06/16/19 04:15 Stool Clostridium difficile Toxin Assay - Final Complete Height (Feet): 3 Height (Inches): 0.00 Weight (Pounds): 150 Lidia Recio NP Jun 16, 2019 11:00
[2019-06-16] MEDS ORDERED: NS 275ml ONE (11:33)
[2019-06-16] MEDS ORDERED: Tubing IV Secondary IV ONE (11:33)
[2019-06-16] MEDS ORDERED: 1/2 NS 1000ml IV ONE (11:33)
[2019-06-16] MEDS ORDERED: D5NS 1000ml IV ONE (11:33)
--- NOTE | 2019-06-16 12:51 | Surgery Progress Note ---
Surgery Progress Note Subjective Additional Comments Patient seen and examined at bedside. Labs noted. Exam unchanged. Continues to have significant incontinence. Objective Last 24 Hour Vital Signs Date Time Temp Pulse Resp B/P (MAP) Pulse Ox O2 Delivery O2 Flow Rate FiO2 06/16/19 12:00 98.9 110 26 113/55 (74) 100 06/16/19 12:00 Room Air 06/16/19 11:30 110 22 119/45 (69) 100 06/16/19 11:00 110 26 119/46 (70) 100 06/16/19 10:30 112 27 109/51 (70) 100 06/16/19 10:00 113 31 117/46 (69) 100 06/16/19 09:30 112 28 105/45 (65) 100 06/16/19 09:00 109 32 112/46 (68) 100 06/16/19 08:33 73/58 06/16/19 08:30 98.6 101 25 101/51 (68) 100 06/16/19 08:00 102 28 73/30 (44) 100 06/16/19 08:00 111 06/16/19 08:00 Room Air 06/16/19 07:30 110 39 101/53 (69) 100 06/16/19 07:00 110 37 108/53 (71) 100 06/16/19 06:45 113 28 104/57 (73) 100 06/16/19 06:30 110 27 104/57 (73) 100 06/16/19 06:15 108 27 100/48 (65) 100 06/16/19 06:00 114/46 06/16/19 06:00 108 27 114/46 (68) 100 06/16/19 05:45 110 27 113/47 (69) 100 06/16/19 05:30 110 30 122/49 (73) 100 06/16/19 05:15 110 24 105/54 (71) 100 06/16/19 05:00 108/52 06/16/19 05:00 110 27 108/52 (70) 100 06/16/19 04:45 113 27 94/43 (60) 100 06/16/19 04:30 113 24 86/65 (72) 100 06/16/19 04:15 113 28 113/71 (85) 100 06/16/19 04:00 110 06/16/19 04:00 98.4 110 32 112/40 (64) 99 06/16/19 04:00 Room Air 06/16/19 04:00 112/40 06/16/19 03:45 114 18 97/42 (60) 100 06/16/19 03:30 109 27 113/54 (73) 100 06/16/19 03:15 117 26 111/40 (63) 100 06/16/19 03:00 116 25 126/46 (72) 100 06/16/19 03:00 126/46 06/16/19 02:45 117 26 116/52 (73) 100 06/16/19 02:30 116 26 104/44 (64) 100 06/16/19 02:15 117 28 121/54 (76) 100 06/16/19 02:00 117 26 119/53 (75) 100 06/16/19 02:00 119/53 06/16/19 01:45 117 25 112/50 (70) 100 06/16/19 01:39 102/49 06/16/19 01:30 115 26 103/45 (64) 100 06/16/19 01:15 117 24 102/49 (66) 100 06/16/19 01:00 117 24 116/58 (77) 100 06/16/19 01:00 116/58 06/16/19 00:45 118 25 112/43 (66) 100 06/16/19 00:30 118 24 109/89 (96) 100 06/16/19 00:15 117 25 110/52 (71) 100 06/16/19 00:00 Room Air 06/16/19 00:00 118 06/16/19 00:00 107/51 06/16/19 00:00 99.1 118 25 104/53 (70) 100 06/15/19 23:45 119 27 92/45 (61) 100 06/15/19 23:30 121 27 99/46 (63) 100 06/15/19 23:15 124 26 126/59 (81) 100 06/15/19 23:00 124 25 132/56 (81) 100 06/15/19 23:00 132/56 06/15/19 22:45 125 26 131/55 (80) 100 06/15/19 22:30 124 26 141/66 (91) 100 06/15/19 22:15 123 27 127/60 (82) 100 06/15/19 22:00 122 27 144/63 (90) 100 06/15/19 22:00 127/60 06/15/19 21:46 64/26 06/15/19 21:45 119 28 133/50 (77) 100 06/15/19 21:30 104 24 64/26 (39) 100 06/15/19 21:25 100 Room Air 21 06/15/19 21:24 108 25 100 Room Air 21 06/15/19 21:15 106 24 61/31 (41) 100 06/15/19 21:00 116 25 65/25 (38) 100 06/15/19 21:00 65/25 06/15/19 20:45 123 25 101/53 (69) 100 06/15/19 20:30 123 27 98/78 (85) 100 06/15/19 20:15 124 26 92/55 (67) 100 06/15/19 20:00 125 26 110/46 (67) 100 06/15/19 20:00 110/46 06/15/19 20:00 Room Air 06/15/19 20:00 125 06/15/19 19:45 126 26 112/64 (80) 100 06/15/19 19:30 98.8 127 24 103/44 (63) 100 06/15/19 19:20 126 30 120/54 (76) 100 06/15/19 19:00 125 27 125/37 (66) 100 06/15/19 19:00 73/37 06/15/19 18:45 98/37 06/15/19 18:30 126 16 105/54 (71) 100 06/15/19 18:30 118/57 06/15/19 18:15 112/65 06/15/19 18:00 124 30 96/55 (69) 100 06/15/19 18:00 114/56 06/15/19 17:30 125 26 104/46 (65) 100 06/15/19 17:00 114/56 06/15/19 17:00 127 27 83/65 (71) 100 06/15/19 16:30 112 26 74/46 (55) 100 06/15/19 16:00 Room Air 7/25/19 16:00 135 06/15/19 16:00 98.1 140 26 105/56 (72) 100 06/15/19 16:00 79/45 06/15/19 15:30 140 27 108/58 (75) 100 06/15/19 15:00 93/48 06/15/19 15:00 130 27 93/48 (63) 100 06/15/19 14:30 121 28 99/43 (61) 100 06/15/19 14:00 110/53 06/15/19 14:00 117 28 110/53 (72) 99 06/15/19 13:30 117 27 120/44 (69) 100 06/15/19 13:00 116 32 106/49 (68) 92 06/15/19 13:00 106/49 I&O Intake and Output 06/15/19 06/16/19 19:00 07:00 Intake Total 1718.46 ml 1931.208 ml Output Total 0 ml 0 ml Balance 1718.46 ml 1931.208 ml Intake Oral 0 ml IV Total 1628.46 ml 1931.208 ml Other 90 ml Output Urine Total 0 ml 0 ml # Bowel Movements 1 2 Dressing: saturated Wound: other Drains: other Cardiovascular: RSR Respiratory: decreased breath sounds Abdomen: soft, present bowel sounds Extremities: other Laboratory Tests Test 06/15/19 17:30 06/16/19 04:05 Troponin I 0.091 ng/mL (0.000-0.056) 0.095 ng/mL (0.000-0.056) White Blood Count 19.1 K/UL (4.8-10.8) H Red Blood Count 2.66 M/UL (4.20-5.40) L Hemoglobin 7.9 G/DL (12.0-16.0) L Hematocrit 25.4 % (37.0-47.0) L Mean Corpuscular Volume 96 FL (80-99) Mean Corpuscular Hemoglobin 29.8 PG (27.0-31.0) Mean Corpuscular Hemoglobin Concent 31.1 G/DL (32.0-36.0) L Red Cell Distribution Width 17.5 % (11.6-14.8) H Platelet Count 251 K/UL (150-450) Mean Platelet Volume 5.7 FL (6.5-10.1) L Neutrophils (%) (Auto) % (45.0-75.0) Lymphocytes (%) (Auto) % (20.0-45.0) Monocytes (%) (Auto) % (1.0-10.0) Eosinophils (%) (Auto) % (0.0-3.0) Basophils (%) (Auto) % (0.0-2.0) Differential Total Cells Counted 100 Neutrophils % (Manual) 86 % (45-75) H Lymphocytes % (Manual) 5 % (20-45) L Monocytes % (Manual) 3 % (1-10) Eosinophils % (Manual) 1 % (0-3) Basophils % (Manual) 0 % (0-2) Band Neutrophils 5 % (0-8) Nucleated Red Blood Cells 1 /100 WBC Platelet Estimate Adequate Platelet Morphology Normal Hypochromasia 1+ Anisocytosis 1+ Sodium Level 136 MMOL/L (136-145) Potassium Level 3.8 MMOL/L (3.5-5.1) Chloride Level 97 MMOL/L (98-107) L Carbon Dioxide Level 25 MMOL/L (21-32) Anion Gap 14 mmol/L (5-15) Blood Urea Nitrogen 66 mg/dL (7-18) H Creatinine 7.1 MG/DL (0.55-1.30) H Estimat Glomerular Filtration Rate mL/min (>60) Glucose Level 229 MG/DL (74-106) H Calcium Level 8.6 MG/DL (8.5-10.1) Total Bilirubin 0.6 MG/DL (0.2-1.0) Aspartate Amino Transf (AST/SGOT) 32 U/L (15-37) Alanine Aminotransferase (ALT/SGPT) 26 U/L (12-78) Alkaline Phosphatase 90 U/L (46-116) Total Protein 6.0 G/DL (6.4-8.2) L Albumin 2.0 G/DL (3.4-5.0) L Globulin 4.0 g/dL Albumin/Globulin Ratio 0.5 (1.0-2.7) L Plan Problems: (1) Decubitus skin ulcer Assessment & Plan: Pt presented on admission with multiple full thickness pressure injuries R ,L buttocks and L ischium .R sacrum extending down to lower R buttocks erythematous with multiple areas with slough,(+) maceration along edges and periwound. Wound is malodorous. Wound with sloth that easily removed with non excisional debridement during clean up / washing. L sacrum extending into L lower buttocks erythematous ,macerated with scattered areas of yellow slough through out base of wound.Wound is malodorous. Small amt seropurulent exudate noted.Periwound noted to have darker skin tone that is indurated. L ischium darker than is normal skin tone and indurated with scattered open wound exuding small amt serous exudate. Incontinence associated dermatitis noted to perineum and medial aspects of both upper thigh.Skin is erythematous and denuded. Pt presented on admission in grossly unkempt state. Full thickness pressure injury to sacrum extending to R and L ischial regions.(L)18cm x (W)14cm. Sacral pressure injury measures(L)6cm x (W)8cm x (D)0.4cm. Scattered slough at base of wound. Muscle is palpable. Wound is now viable. Full thickness wounds R and L buttocks with scattered slough. Non-blanchable erythema with additional skin erosions periwound. Moisture Intertrigo noted to bilat breasts folds. abd folds and bilat groin areas. Skin is dry dry and flaky to both AKA stumps. Small partial thickness wound noted to L AKA (L)0.4cm x (W)0.4cm. Base of wound is moist and viable. Wound cleaned at bedside and non-excisional debridement performed of sloth. Underlying tissue fairly healthy. The is now a stage IV sacral decubitus ulcer in the central portion right above the coccyx with palpable musculature. Wound is deteriorated since last admission. Tx.Plan: Cleanse wound Sacrum with saline. Apply Therahoney to Sacrum,R and L buttocks. Apply Moisture Barrier Paste periwound. Cover with Optifoam drsg Daily and prn. Apply Moisture Barrier Paste to folds of both breasts,abd folds ,and bilat groin areas with each incontinence care. Apply Cavilon Skin Barrier to L AKA daily. Reposition at least every 2hours or as tolerated. Off-load heels with pillow. APM/TIAGO mattress overlay. (2) Sepsis Assessment & Plan: 84-year-old female with hypotension, tachycardia, leukocytosis, abnormal labs. Currently in intensive care unit Right femoral central venous catheter recently placed Receiving IV fluid resuscitation On IV antibiotics as per infectious disease Trend labs We will follow with recommendations (3) GI bleed Assessment & Plan: Noted to have hematemesis while in nursing facility. No acute episode of hematemesis at this time stool is noted to be fairly dark Appreciate GI input Willian Machado Jun 16, 2019 12:51
[2019-06-16] MEDS: Meropenem 500mg/NS 55ml IVPB SCH ×2 (16:02)
--- NOTE | 2019-06-16 16:08 | Infectious Diseases Prog Note ---
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 await sputum for AFB smear and culture X 3 , and PCR MTB . keep in air born isolation pending work up . EXPECT T spot TO be positive due to prior H/O TB. (2) Decubitus skin ulcer Assessment & Plan: with maceration and necrosis , possibly infected, had surgical eval , already on wide spectrum antibiotics , keep off loading with local wound care as needed as per hospital protocol (3) Sepsis Assessment & Plan: with shock due to gram positive cocci in clusters with fever , source most likely sacral/buttock pressure wounds VS HD catheter . continue vancomycin and meropenem empirically pending final blood cultures . await stool for C diff. echo to rule out vegetations . may need to change the HD catheter (4) GI bleed Assessment & Plan: monitor H/H , transfuse as needed, GI eval for source control (5) ESRD (end stage renal disease) on dialysis Assessment & Plan: continue HD as per renal , antibiotics renally dosed as per pharmacy (6) Anemia Assessment & Plan: due to the above , transfuse blood as needed, GI eval for source control Subjective ROS Limited/Unobtainable: Yes Allergies: Coded Allergies: GABAPENTIN (Unverified Allergy, Unknown, 06/14/19) Subjective she was resting in bed in ICU, quiet, nonverbal, no cough or hemoptysis today, had no bowel movements today Objective Vital Signs Last 24 Hour Vital Signs Date Time Temp Pulse Resp B/P (MAP) Pulse Ox O2 Delivery O2 Flow Rate FiO2 06/16/19 15:00 111 20 128/41 (70) 100 06/16/19 14:30 110 21 130/46 (74) 100 06/16/19 14:00 111 24 125/53 (77) 100 06/16/19 14:00 100 Room Air 21 06/16/19 14:00 101 22 100 Room Air 21 06/16/19 13:30 110 17 125/51 (75) 100 06/16/19 13:00 112 22 125/51 (75) 100 06/16/19 12:30 112 24 123/44 (70) 100 06/16/19 12:00 98.9 110 26 113/55 (74) 100 06/16/19 12:00 113 06/16/19 12:00 Room Air 06/16/19 11:30 110 22 119/45 (69) 100 06/16/19 11:00 110 26 119/46 (70) 100 06/16/19 10:30 112 27 109/51 (70) 100 06/16/19 10:00 113 31 117/46 (69) 100 06/16/19 09:30 112 28 105/45 (65) 100 06/16/19 09:00 109 32 112/46 (68) 100 06/16/19 08:33 73/58 06/16/19 08:30 98.6 101 25 101/51 (68) 100 06/16/19 08:00 102 28 73/30 (44) 100 06/16/19 08:00 111 06/16/19 08:00 Room Air 06/16/19 07:30 110 39 101/53 (69) 100 06/16/19 07:00 110 37 108/53 (71) 100 06/16/19 06:45 113 28 104/57 (73) 100 06/16/19 06:30 110 27 104/57 (73) 100 06/16/19 06:15 108 27 100/48 (65) 100 06/16/19 06:00 114/46 06/16/19 06:00 108 27 114/46 (68) 100 06/16/19 05:45 110 27 113/47 (69) 100 06/16/19 05:30 110 30 122/49 (73) 100 06/16/19 05:15 110 24 105/54 (71) 100 06/16/19 05:00 108/52 06/16/19 05:00 110 27 108/52 (70) 100 06/16/19 04:45 113 27 94/43 (60) 100 06/16/19 04:30 113 24 86/65 (72) 100 06/16/19 04:15 113 28 113/71 (85) 100 06/16/19 04:00 110 06/16/19 04:00 98.4 110 32 112/40 (64) 99 06/16/19 04:00 Room Air 06/16/19 04:00 112/40 06/16/19 03:45 114 18 97/42 (60) 100 06/16/19 03:30 109 27 113/54 (73) 100 06/16/19 03:15 117 26 111/40 (63) 100 06/16/19 03:00 116 25 126/46 (72) 100 06/16/19 03:00 126/46 06/16/19 02:45 117 26 116/52 (73) 100 06/16/19 02:30 116 26 104/44 (64) 100 06/16/19 02:15 117 28 121/54 (76) 100 06/16/19 02:00 117 26 119/53 (75) 100 06/16/19 02:00 119/53 06/16/19 01:45 117 25 112/50 (70) 100 06/16/19 01:39 102/49 06/16/19 01:30 115 26 103/45 (64) 100 06/16/19 01:15 117 24 102/49 (66) 100 06/16/19 01:00 117 24 116/58 (77) 100 06/16/19 01:00 116/58 06/16/19 00:45 118 25 112/43 (66) 100 06/16/19 00:30 118 24 109/89 (96) 100 06/16/19 00:15 117 25 110/52 (71) 100 06/16/19 00:00 Room Air 06/16/19 00:00 118 06/16/19 00:00 107/51 06/16/19 00:00 99.1 118 25 104/53 (70) 100 06/15/19 23:45 119 27 92/45 (61) 100 06/15/19 23:30 121 27 99/46 (63) 100 06/15/19 23:15 124 26 126/59 (81) 100 06/15/19 23:00 124 25 132/56 (81) 100 06/15/19 23:00 132/56 06/15/19 22:45 125 26 131/55 (80) 100 06/15/19 22:30 124 26 141/66 (91) 100 06/15/19 22:15 123 27 127/60 (82) 100 06/15/19 22:00 122 27 144/63 (90) 100 06/15/19 22:00 127/60 06/15/19 21:46 64/26 7/25/19 21:45 119 28 133/50 (77) 100 06/15/19 21:30 104 24 64/26 (39) 100 06/15/19 21:25 100 Room Air 21 06/15/19 21:24 108 25 100 Room Air 21 06/15/19 21:15 106 24 61/31 (41) 100 06/15/19 21:00 116 25 65/25 (38) 100 06/15/19 21:00 65/25 06/15/19 20:45 123 25 101/53 (69) 100 06/15/19 20:30 123 27 98/78 (85) 100 06/15/19 20:15 124 26 92/55 (67) 100 06/15/19 20:00 125 26 110/46 (67) 100 06/15/19 20:00 110/46 06/15/19 20:00 Room Air 06/15/19 20:00 125 06/15/19 19:45 126 26 112/64 (80) 100 06/15/19 19:30 98.8 127 24 103/44 (63) 100 06/15/19 19:20 126 30 120/54 (76) 100 06/15/19 19:00 125 27 125/37 (66) 100 06/15/19 19:00 73/37 06/15/19 18:45 98/37 06/15/19 18:30 126 16 105/54 (71) 100 06/15/19 18:30 118/57 06/15/19 18:15 112/65 06/15/19 18:00 124 30 96/55 (69) 100 06/15/19 18:00 114/56 06/15/19 17:30 125 26 104/46 (65) 100 06/15/19 17:00 114/56 06/15/19 17:00 127 27 83/65 (71) 100 06/15/19 16:30 112 26 74/46 (55) 100 Height (Feet): 3 Height (Inches): 0.00 Weight (Pounds): 150 General Appearance: WD/WN, no acute distress HEENT: normocephalic, atraumatic, anicteric, mucous membranes moist, PERRL Respiratory/Chest: chest wall non-tender, lungs clear, normal breath sounds, no respiratory distress, no accessory muscle use Cardiovascular: normal peripheral pulses, normal rate, regular rhythm, no gallop/murmur, no JVD Abdomen: no organomegaly, no mass, no scars, hypoactive bowel sounds, distended , other - G tube site is ok Extremities: no cyanosis, no clubbing Skin: no rash, no lesions, ulcers Neurologic/Psychiatric: unresponsiveness Lymphatic: no neck adenopathy, no groin adenopathy Musculoskeletal: normal muscle bulk Microbiology Date/Time Source Procedure Growth Status 06/14/19 13:40 Blood Blood Culture - Preliminary Resulted 06/14/19 13:40 Blood Blood Culture - Preliminary Resulted 06/14/19 14:30 Nasal Nares MRSA Culture - Final Staphylococcus Aureus - Mrsa Complete 06/16/19 04:15 Stool Clostridium difficile Toxin Assay - Final Complete 06/14/19 14:30 Rectum VRE Culture - Final Enterococcus Faecalis - Vre Enterococcus Faecium - Vre Resulted 06/14/19 14:30 Rectum Pending Resulted Laboratory Tests Test 06/15/19 17:30 06/16/19 04:05 Troponin I 0.091 ng/mL (0.000-0.056) 0.095 ng/mL (0.000-0.056) White Blood Count 19.1 K/UL (4.8-10.8) H Red Blood Count 2.66 M/UL (4.20-5.40) L Hemoglobin 7.9 G/DL (12.0-16.0) L Hematocrit 25.4 % (37.0-47.0) L Mean Corpuscular Volume 96 FL (80-99) Mean Corpuscular Hemoglobin 29.8 PG (27.0-31.0) Mean Corpuscular Hemoglobin Concent 31.1 G/DL (32.0-36.0) L Red Cell Distribution Width 17.5 % (11.6-14.8) H Platelet Count 251 K/UL (150-450) Mean Platelet Volume 5.7 FL (6.5-10.1) L Neutrophils (%) (Auto) % (45.0-75.0) Lymphocytes (%) (Auto) % (20.0-45.0) Monocytes (%) (Auto) % (1.0-10.0) Eosinophils (%) (Auto) % (0.0-3.0) Basophils (%) (Auto) % (0.0-2.0) Differential Total Cells Counted 100 Neutrophils % (Manual) 86 % (45-75) H Lymphocytes % (Manual) 5 % (20-45) L Monocytes % (Manual) 3 % (1-10) Eosinophils % (Manual) 1 % (0-3) Basophils % (Manual) 0 % (0-2) Band Neutrophils 5 % (0-8) Nucleated Red Blood Cells 1 /100 WBC Platelet Estimate Adequate Platelet Morphology Normal Hypochromasia 1+ Anisocytosis 1+ Sodium Level 136 MMOL/L (136-145) Potassium Level 3.8 MMOL/L (3.5-5.1) Chloride Level 97 MMOL/L (98-107) L Carbon Dioxide Level 25 MMOL/L (21-32) Anion Gap 14 mmol/L (5-15) Blood Urea Nitrogen 66 mg/dL (7-18) H Creatinine 7.1 MG/DL (0.55-1.30) H Estimat Glomerular Filtration Rate mL/min (>60) Glucose Level 229 MG/DL (74-106) H Calcium Level 8.6 MG/DL (8.5-10.1) Total Bilirubin 0.6 MG/DL (0.2-1.0) Aspartate Amino Transf (AST/SGOT) 32 U/L (15-37) Alanine Aminotransferase (ALT/SGPT) 26 U/L (12-78) Alkaline Phosphatase 90 U/L (46-116) Total Protein 6.0 G/DL (6.4-8.2) L Albumin 2.0 G/DL (3.4-5.0) L Globulin 4.0 g/dL Albumin/Globulin Ratio 0.5 (1.0-2.7) L Current Medications Medications (Trade) Dose Ordered Sig/Selene Route PRN Reason Start Time Stop Time Status Last Admin Dose Admin Acetaminophen (Tylenol) 650 mg Q4H PRN GT Fever 06/14/19 17:45 07/14/19 17:44 06/15/19 01:12 Albuterol/ Ipratropium (Albuterol/ Ipratropium) 3 ml Q4H PRN HHN Shortness of Breath 06/14/19 17:45 06/19/19 17:44 Chlorhexidine Gluconate (Ivory-Hex 2%) 1 applic DAILY@2000 TOPIC 06/15/19 20:00 07/15/19 19:59 06/15/19 20:44 Hydralazine HCl (Apresoline) 25 mg Q6H PRN ORAL For High Blood Pressure 06/14/19 21:00 07/14/19 20:59 Insulin Aspart (NovoLOG) BEFORE MEALS AND HS SUBQ 06/14/19 21:00 07/14/19 20:59 06/16/19 11:47 Lorazepam (Ativan 2mg/ml 1ml) 2 mg Q4H PRN IV For Anxiety 06/14/19 17:45 06/21/19 17:44 Meropenem 500 mg/ Sodium Chloride 55 ml @ 110 mls/hr Q24H IVPB 06/16/19 15:00 06/21/19 14:59 Morphine Sulfate (Morphine Sulfate) 4 mg Q4H PRN IVP For Pain 06/14/19 17:45 06/21/19 17:44 Norepinephrine Bitartrate 4 mg/ Dextrose 250 ml @ 0 mls/hr Q24H IV 06/15/19 02:15 07/15/19 02:14 06/16/19 08:33 Ondansetron HCl (Zofran) 4 mg Q6H PRN IVP Nausea & Vomiting 06/14/19 17:45 07/14/19 17:44 Pantoprazole 80 mg/Sodium Chloride 250 ml @ 25 mls/hr Q10H IV 06/14/19 17:00 07/14/19 16:59 06/16/19 08:42 Sodium Chloride 1,000 ml @ 75 mls/hr [id number] IV 06/16/19 10:45 07/16/19 10:44 06/16/19 11:35 Vancomycin HCl (Vanco rx to dose) 1 ea DAILY PRN MISC Per rx protocol 06/14/19 19:45 07/14/19 19:44 Morteza Castillo M.D. Jun 16, 2019 16:08
[2019-06-16] MEDS: Dyna-Hex 2% Top Sol 2oz TOPIC SCH (20:13)
[2019-06-17] VITALS (44 sets, daily range): BP systolic 102–145; BP diastolic 42–106
[2019-06-17] MEDS: NovoLOG Insulin Flexpen SUBQ SCH ×4 (06:18→20:43)
[2019-06-17] MEDS: Pantoprazole 80 MG in NS 250 ML IV SCH ×2 (06:27→17:08)
--- NOTE | 2019-06-17 06:42 | Pulmonolgy Critical Care Note ---
Critical Care - Asmt/Plan Problems: (1) Septic shock (2) GI bleed (3) ESRD (end stage renal disease) on dialysis (4) Decubitus skin ulcer (5) HTN (hypertension) (6) DM (diabetes mellitus) (7) G tube feedings (8) Colonization with VRE (vancomycin-resistant enterococcus) Assessment/Plan: still on Levophed of 2 ugm there is no need for respiratory isolation Respiratory: monitor respiratory rate, adjust FIO2, CXR Cardiac: continue pressors Renal: F/U I&O Infectious Disease: check cultures Gastrointestinal: continue feedings/current rate Endocrine: monitor blood sugar, continue sliding scale insulin Hematologic: monitor H/H, transfuse if hgb<8.5 Neurologic: PRN Morphine, keep patient comfortable Affect: PRN ativan Notes Reviewed: cardio, renal Discussed with: nurses, consultants, telehealth case managertest manager - Objective Last 24 Hour Vital Signs Date Time Temp Pulse Resp B/P (MAP) Pulse Ox O2 Delivery O2 Flow Rate FiO2 06/17/19 06:15 102 22 120/47 (71) 100 06/17/19 06:00 98 28 117/47 (70) 100 06/17/19 06:00 120/47 06/17/19 05:45 101 24 105/49 (67) 100 06/17/19 05:30 97 28 106/63 (77) 100 06/17/19 05:15 98 26 107/44 (65) 100 06/17/19 05:00 97 28 121/50 (73) 92 06/17/19 05:00 121/50 06/17/19 04:45 96 28 122/44 (70) 100 06/17/19 04:30 98 27 113/46 (68) 100 06/17/19 04:15 98 27 106/49 (68) 100 06/17/19 04:00 Room Air 06/17/19 04:00 114/80 06/17/19 04:00 100 06/17/19 04:00 98.7 100 28 120/45 (70) 100 06/17/19 03:45 101 29 107/49 (68) 96 06/17/19 03:30 100 25 114/80 (91) 100 06/17/19 03:15 100 29 115/57 (76) 100 06/17/19 03:00 101 23 145/106 (119) 100 06/17/19 03:00 145/106 06/17/19 02:45 96 25 133/50 (77) 100 06/17/19 02:30 95 24 126/49 (74) 100 06/17/19 02:15 96 23 133/45 (74) 100 06/17/19 02:00 95 25 129/47 (74) 100 06/17/19 02:00 129/47 06/17/19 01:45 96 24 123/50 (74) 100 06/17/19 01:30 95 25 128/48 (74) 100 06/17/19 01:15 97 23 119/56 (77) 100 06/17/19 01:00 96 22 126/48 (74) 100 06/17/19 01:00 126/48 06/17/19 00:45 97 21 128/47 (74) 100 06/17/19 00:30 98 22 117/53 (74) 100 06/17/19 00:00 Room Air 06/17/19 00:00 98.7 102 28 142/55 (84) 100 06/17/19 00:00 142/55 06/17/19 00:00 105 06/16/19 23:45 101 24 139/54 (82) 100 06/16/19 23:30 101 23 138/55 (82) 100 06/16/19 23:15 101 23 139/51 (80) 100 06/16/19 23:00 147/62 06/16/19 23:00 103 20 147/62 (90) 100 06/16/19 22:45 104 19 146/72 (96) 100 06/16/19 22:30 102 22 131/65 (87) 100 06/16/19 22:15 103 25 146/57 (86) 100 06/16/19 22:00 131/51 06/16/19 22:00 102 20 131/51 (77) 100 06/16/19 21:45 102 24 137/55 (82) 100 06/16/19 21:30 102 28 141/59 (86) 100 06/16/19 21:15 102 29 140/57 (84) 100 06/16/19 21:00 131/55 06/16/19 21:00 101 30 131/55 (80) 100 06/16/19 20:45 102 37 135/60 (85) 100 06/16/19 20:30 102 23 135/50 (78) 100 06/16/19 20:15 101 33 134/53 (80) 100 06/16/19 20:03 Room Air 06/16/19 20:02 110 06/16/19 20:00 101 37 139/72 (94) 100 06/16/19 20:00 139/41 06/16/19 19:45 102 30 141/56 (84) 100 06/16/19 19:30 98.4 101 28 131/54 (79) 100 06/16/19 19:15 102 38 131/48 (75) 100 06/16/19 19:05 100 Room Air 21 06/16/19 19:05 101 20 100 Room Air 21 06/16/19 19:00 102 25 128/51 (76) 100 06/16/19 19:00 128/51 06/16/19 18:30 102 28 127/49 (75) 100 06/16/19 18:00 99.0 102 25 110/51 (70) 100 06/16/19 17:46 118/52 06/16/19 17:30 104 30 118/52 (74) 99 06/16/19 17:15 104 34 121/49 (73) 97 06/16/19 17:00 104 25 95/75 (82) 100 06/16/19 16:45 103 27 120/57 (78) 100 06/16/19 16:30 106 18 118/54 (75) 100 06/16/19 16:15 105 24 119/44 (69) 100 06/16/19 16:00 Room Air 06/16/19 16:00 111 06/16/19 16:00 99.2 108 20 116/49 (71) 100 06/16/19 15:45 110 25 132/54 (80) 100 06/16/19 15:30 110 22 118/52 (74) 100 06/16/19 15:00 111 20 128/41 (70) 100 06/16/19 14:30 110 21 130/46 (74) 100 06/16/19 14:00 111 24 125/53 (77) 100 06/16/19 14:00 100 Room Air 21 06/16/19 14:00 101 22 100 Room Air 21 06/16/19 13:30 110 17 125/51 (75) 100 06/16/19 13:00 112 22 125/51 (75) 100 06/16/19 12:30 112 24 123/44 (70) 100 06/16/19 12:00 98.9 110 26 113/55 (74) 100 06/16/19 12:00 113 06/16/19 12:00 Room Air 06/16/19 11:30 110 22 119/45 (69) 100 06/16/19 11:00 110 26 119/46 (70) 100 06/16/19 10:30 112 27 109/51 (70) 100 06/16/19 10:00 113 31 117/46 (69) 100 06/16/19 09:30 112 28 105/45 (65) 100 06/16/19 09:00 109 32 112/46 (68) 100 06/16/19 08:33 73/58 06/16/19 08:30 98.6 101 25 101/51 (68) 100 06/16/19 08:00 102 28 73/30 (44) 100 06/16/19 08:00 111 06/16/19 08:00 Room Air 06/16/19 07:30 110 39 101/53 (69) 100 06/16/19 07:00 110 37 108/53 (71) 100 06/16/19 06:45 113 28 104/57 (73) 100 Status: awake Neck: full ROM Lungs: chest wall tender Heart: HR/BP unstable Abdomen: non-tender, feeding tube Extremities: edema Decubiti: location Micro: Microbiology Date/Time Source Procedure Growth Status 06/14/19 13:40 Blood Blood Culture - Preliminary Staphylococcus Species Resulted 06/14/19 13:40 Blood Blood Culture - Preliminary Staphylococcus Species Resulted 06/14/19 14:30 Nasal Nares MRSA Culture - Final Staphylococcus Aureus - Mrsa Complete 06/16/19 04:15 Stool Clostridium difficile Toxin Assay - Final Complete 06/14/19 14:30 Rectum VRE Culture - Final Enterococcus Faecalis - Vre Enterococcus Faecium - Vre Resulted 06/14/19 14:30 Rectum Pending Resulted Accucheck: 82 Critical Care - Subjective ROS Limited/Unobtainable: No Condition: critical EKG Rhythm: Sinus Rhythm FI02: 21 Sputum Amount: None I&O: Intake and Output 06/16/19 06/17/19 18:59 06:59 Intake Total 2526.5 ml 1315.00 ml Output Total 0 ml 0 ml Balance 2526.5 ml 1315.00 ml Intake Oral 0 ml 0 ml IV Total 2526.5 ml 1315.00 ml Output Urine Total 0 ml 0 ml # Voids 1 # Bowel Movements 2 Labs: Laboratory Tests Test 06/17/19 06:20 White Blood Count Pending Red Blood Count Pending Hemoglobin Pending Hematocrit Pending Mean Corpuscular Volume Pending Mean Corpuscular Hemoglobin Pending Mean Corpuscular Hemoglobin Concent Pending Red Cell Distribution Width Pending Platelet Count Pending Mean Platelet Volume Pending Neutrophils (%) (Auto) Pending Lymphocytes (%) (Auto) Pending Monocytes (%) (Auto) Pending Eosinophils (%) (Auto) Pending Basophils (%) (Auto) Pending Prothrombin Time Pending Prothromb Time International Ratio Pending Activated Partial Thromboplast Time Pending Sodium Level Pending Potassium Level Pending Chloride Level Pending Carbon Dioxide Level Pending Blood Urea Nitrogen Pending Creatinine Pending Estimat Glomerular Filtration Rate Pending Glucose Level Pending Calcium Level Pending Phosphorus Level Pending Magnesium Level Pending Total Bilirubin Pending Aspartate Amino Transf (AST/SGOT) Pending Alanine Aminotransferase (ALT/SGPT) Pending Alkaline Phosphatase Pending Total Protein Pending Albumin Pending Globulin Pending Random Vancomycin Level Pending Rosemary Lui MD Jun 17, 2019 06:42
[2019-06-17] MEDS: D5NS 1,000 ML IV SCH (06:52)
[2019-06-17 07:17] LABS: HEMATOCRIT 24.1 % (37.0-47.0); HEMOGLOBIN 7.4 G/DL (12.0-16.0); MEAN CORPUSCULAR VOLUME 95 FL (80-99); PLATELET COUNT 172 K/UL (150-450); RED BLOOD COUNT 2.53 M/UL (4.20-5.40); RED CELL DISTRIBUTION WIDTH 17.1 % (11.6-14.8); WHITE BLOOD COUNT 9.9 K/UL (4.8-10.8)
[2019-06-17 07:34] LABS: ALANINE AMINOTRANSFERASE 18 U/L (12-78); ALBUMIN 2.6 G/DL (3.4-5.0); ALBUMIN/GLOBULIN RATIO 0.6 (1.0-2.7); ALKALINE PHOSPHATASE 90 U/L (46-116); ANION GAP 12 mmol/L (5-15); ASPARTATE AMINO TRANSFERASE 21 U/L (15-37); BILIRUBIN,TOTAL 0.7 MG/DL (0.2-1.0); BLOOD UREA NITROGEN 62 mg/dL (7-18); CALCIUM 9.4 MG/DL (8.5-10.1); CARBON DIOXIDE 25 MMOL/L (21-32); CHLORIDE 103 MMOL/L (98-107); CREATININE 7.5 MG/DL (0.55-1.30); POTASSIUM 3.8 MMOL/L (3.5-5.1); SODIUM 140 MMOL/L (136-145)
--- NOTE | 2019-06-17 11:25 | Nephrology Progress Note ---
Assessment/Plan Problem List: (1) ESRD (end stage renal disease) on dialysis (2) Septic shock (3) GI bleed (4) Decubitus skin ulcer (5) G tube feedings (6) DM (diabetes mellitus) (7) HTN (hypertension) Assessment ESRD Hematemesis Decubs Anemia Leukocytosis fever / Sepsis / shock h/o Pancreatitis h/o DM & HTN Plan HD done 06/15 next 06/17 transfuse one unit Check Lipase Keep BP above 100 syst per consultants Subjective ROS Limited/Unobtainable: No Constitutional: Reports: malaise, weakness Objective Objective Last 24 Hour Vital Signs Date Time Temp Pulse Resp B/P (MAP) Pulse Ox O2 Delivery O2 Flow Rate FiO2 06/17/19 11:00 88 16 125/43 (70) 97 06/17/19 10:00 87 19 124/43 (70) 100 06/17/19 09:00 91 27 115/48 (70) 100 06/17/19 09:00 115/48 06/17/19 08:30 92 27 105/48 (67) 100 06/17/19 08:00 Room Air 06/17/19 08:00 120/52 06/17/19 08:00 97.8 93 25 106/42 (63) 100 06/17/19 07:00 119/44 06/17/19 07:00 96 27 109/44 (65) 100 06/17/19 06:30 104 20 100 Room Air 21 06/17/19 06:30 101 25 115/54 (74) 100 06/17/19 06:30 100 Room Air 21 06/17/19 06:15 102 22 120/47 (71) 100 06/17/19 06:00 98 28 117/47 (70) 100 06/17/19 06:00 120/47 06/17/19 05:45 101 24 105/49 (67) 100 06/17/19 05:30 97 28 106/63 (77) 100 06/17/19 05:15 98 26 107/44 (65) 100 06/17/19 05:00 97 28 121/50 (73) 92 06/17/19 05:00 121/50 06/17/19 04:45 96 28 122/44 (70) 100 06/17/19 04:30 98 27 113/46 (68) 100 06/17/19 04:15 98 27 106/49 (68) 100 06/17/19 04:00 Room Air 06/17/19 04:00 114/80 06/17/19 04:00 100 06/17/19 04:00 98.7 100 28 120/45 (70) 100 06/17/19 03:45 101 29 107/49 (68) 96 06/17/19 03:30 100 25 114/80 (91) 100 06/17/19 03:15 100 29 115/57 (76) 100 06/17/19 03:00 101 23 145/106 (119) 100 06/17/19 03:00 145/106 06/17/19 02:45 96 25 133/50 (77) 100 06/17/19 02:30 95 24 126/49 (74) 100 06/17/19 02:15 96 23 133/45 (74) 100 06/17/19 02:00 95 25 129/47 (74) 100 06/17/19 02:00 129/47 06/17/19 01:45 96 24 123/50 (74) 100 06/17/19 01:30 95 25 128/48 (74) 100 06/17/19 01:15 97 23 119/56 (77) 100 06/17/19 01:00 96 22 126/48 (74) 100 06/17/19 01:00 126/48 06/17/19 00:45 97 21 128/47 (74) 100 06/17/19 00:30 98 22 117/53 (74) 100 06/17/19 00:00 Room Air 06/17/19 00:00 98.7 102 28 142/55 (84) 100 06/17/19 00:00 142/55 06/17/19 00:00 105 06/16/19 23:45 101 24 139/54 (82) 100 06/16/19 23:30 101 23 138/55 (82) 100 06/16/19 23:15 101 23 139/51 (80) 100 06/16/19 23:00 147/62 06/16/19 23:00 103 20 147/62 (90) 100 06/16/19 22:45 104 19 146/72 (96) 100 06/16/19 22:30 102 22 131/65 (87) 100 06/16/19 22:15 103 25 146/57 (86) 100 06/16/19 22:00 131/51 06/16/19 22:00 102 20 131/51 (77) 100 06/16/19 21:45 102 24 137/55 (82) 100 06/16/19 21:30 102 28 141/59 (86) 100 06/16/19 21:15 102 29 140/57 (84) 100 06/16/19 21:00 131/55 06/16/19 21:00 101 30 131/55 (80) 100 06/16/19 20:45 102 37 135/60 (85) 100 06/16/19 20:30 102 23 135/50 (78) 100 06/16/19 20:15 101 33 134/53 (80) 100 06/16/19 20:03 Room Air 06/16/19 20:02 110 06/16/19 20:00 101 37 139/72 (94) 100 06/16/19 20:00 139/41 06/16/19 19:45 102 30 141/56 (84) 100 06/16/19 19:30 98.4 101 28 131/54 (79) 100 06/16/19 19:15 102 38 131/48 (75) 100 06/16/19 19:05 100 Room Air 21 06/16/19 19:05 101 20 100 Room Air 21 06/16/19 19:00 102 25 128/51 (76) 100 06/16/19 19:00 128/51 06/16/19 18:30 102 28 127/49 (75) 100 06/16/19 18:00 99.0 102 25 110/51 (70) 100 06/16/19 17:46 118/52 06/16/19 17:30 104 30 118/52 (74) 99 06/16/19 17:15 104 34 121/49 (73) 97 06/16/19 17:00 104 25 95/75 (82) 100 06/16/19 16:45 103 27 120/57 (78) 100 06/16/19 16:30 106 18 118/54 (75) 100 06/16/19 16:15 105 24 119/44 (69) 100 06/16/19 16:00 Room Air 06/16/19 16:00 111 06/16/19 16:00 99.2 108 20 116/49 (71) 100 06/16/19 15:45 110 25 132/54 (80) 100 06/16/19 15:30 110 22 118/52 (74) 100 06/16/19 15:00 111 20 128/41 (70) 100 06/16/19 14:30 110 21 130/46 (74) 100 06/16/19 14:00 111 24 125/53 (77) 100 06/16/19 14:00 100 Room Air 21 06/16/19 14:00 101 22 100 Room Air 21 06/16/19 13:30 110 17 125/51 (75) 100 06/16/19 13:00 112 22 125/51 (75) 100 06/16/19 12:30 112 24 123/44 (70) 100 06/16/19 12:00 98.9 110 26 113/55 (74) 100 06/16/19 12:00 113 06/16/19 12:00 Room Air 06/16/19 11:30 110 22 119/45 (69) 100 Intake and Output 06/16/19 06/17/19 18:59 06:59 Intake Total 2526.5 ml 1315.00 ml Output Total 0 ml 0 ml Balance 2526.5 ml 1315.00 ml Intake Oral 0 ml 0 ml IV Total 2526.5 ml 1315.00 ml Output Urine Total 0 ml 0 ml # Voids 1 # Bowel Movements 2 Laboratory Tests 06/17/19 06:20: White Blood Count 9.9, Red Blood Count 2.53L, Hemoglobin 7.4L, Hematocrit 24.1L , Mean Corpuscular Volume 95, Mean Corpuscular Hemoglobin 29.3, Mean Corpuscular Hemoglobin Concent 30.8L, Red Cell Distribution Width 17.1H, Platelet Count 172, Mean Platelet Volume 5.9L, Neutrophils (%) (Auto) , Lymphocytes (%) (Auto) , Monocytes (%) (Auto) , Eosinophils (%) (Auto) , Basophils (%) (Auto) , Differential Total Cells Counted 100, Neutrophils % ( Manual) 77H, Lymphocytes % (Manual) 16L, Monocytes % (Manual) 5, Eosinophils % ( Manual) 2, Basophils % (Manual) 0, Band Neutrophils 0, Platelet Estimate Adequate, Platelet Morphology Normal, Anisocytosis 1+, Prothrombin Time 11.1, Prothromb Time International Ratio 1.0, Activated Partial Thromboplast Time 23, Sodium Level 140, Potassium Level 3.8, Chloride Level 103, Carbon Dioxide Level 25, Anion Gap 12, Blood Urea Nitrogen 62H, Creatinine 7.5H, Estimat Glomerular Filtration Rate , Glucose Level 78#, Calcium Level 9.4, Phosphorus Level 5.0H, Magnesium Level 2.1, Total Bilirubin 0.7, Aspartate Amino Transf (AST/SGOT) 21, Alanine Aminotransferase (ALT/SGPT) 18, Alkaline Phosphatase 90, Total Protein 6.7, Albumin 2.6L, Globulin 4.1, Albumin/Globulin Ratio 0.6L, Random Vancomycin Level 22.0 Height (Feet): 3 Height (Inches): 0.00 Weight (Pounds): 155 General Appearance: no apparent distress Cardiovascular: normal rate Abdomen: soft Objective no change Matthew Rich MD Jun 17, 2019 11:25
[2019-06-17] MEDS: Meropenem 500mg/NS 55ml IVPB SCH ×2 (15:03)
[2019-06-17] MEDS ORDERED: Tubing Blood Filter IV ONE (15:55)
[2019-06-17] MEDS ORDERED: NS 275ml ONE (15:55)
[2019-06-17] MEDS ORDERED: D5NS 1000ml IV ONE (15:55)
--- NOTE | 2019-06-17 16:29 | General Progress Note ---
Assessment/Plan Status: unchanged Assessment/Plan: Assessment (1) GI bleed ICD Codes: K92.2 - Gastrointestinal hemorrhage, unspecified SNOMED: 12646361 (2) Anemia due to chronic kidney disease ICD Codes: N18.9 - Chronic kidney disease, unspecified; D63.1 - Anemia in chronic kidney disease SNOMED: 032721513 (3) Septic shock ICD Codes: A41.9 - Sepsis, unspecified organism; R65.21 - Severe sepsis with septic shock SNOMED: 72384278 (4) G tube feedings ICD Codes: Z93.1 - Gastrostomy status SNOMED: 758814630, 856298191, 568663171 Status: unchanged . Assessment/Plan Plan for EGD when stable airborne precautions r/o TB Maintain n.p.o. plus IV fluids Continue Protonix drip Monitor H&H, transfuse as needed to maintain hemoglobin above 7. Respiratory support follow labs Subjective Allergies: Coded Allergies: GABAPENTIN (Unverified Allergy, Unknown, 06/14/19) Subjective Seen in ICU non communicative off feeds d/w Rn no BM s/p RBC transfusion Objective Last 24 Hour Vital Signs Date Time Temp Pulse Resp B/P (MAP) Pulse Ox O2 Delivery O2 Flow Rate FiO2 06/17/19 15:00 89 27 102/50 (67) 100 06/17/19 14:00 92 18 113/45 (67) 98 06/17/19 13:00 88 16 105/49 (67) 97 06/17/19 12:00 86 06/17/19 12:00 Room Air 06/17/19 12:00 99.6 93 26 106/42 (63) 100 06/17/19 11:00 88 16 125/43 (70) 97 06/17/19 10:00 87 19 124/43 (70) 100 06/17/19 09:00 91 27 115/48 (70) 100 06/17/19 09:00 115/48 06/17/19 08:30 92 27 105/48 (67) 100 06/17/19 08:00 Room Air 06/17/19 08:00 98 06/17/19 08:00 120/52 06/17/19 08:00 97.8 93 25 106/42 (63) 100 06/17/19 07:00 119/44 06/17/19 07:00 96 27 109/44 (65) 100 06/17/19 06:30 104 20 100 Room Air 21 06/17/19 06:30 101 25 115/54 (74) 100 06/17/19 06:30 100 Room Air 21 06/17/19 06:15 102 22 120/47 (71) 100 06/17/19 06:00 98 28 117/47 (70) 100 06/17/19 06:00 120/47 06/17/19 05:45 101 24 105/49 (67) 100 06/17/19 05:30 97 28 106/63 (77) 100 06/17/19 05:15 98 26 107/44 (65) 100 06/17/19 05:00 97 28 121/50 (73) 92 06/17/19 05:00 121/50 06/17/19 04:45 96 28 122/44 (70) 100 06/17/19 04:30 98 27 113/46 (68) 100 06/17/19 04:15 98 27 106/49 (68) 100 06/17/19 04:00 Room Air 06/17/19 04:00 114/80 06/17/19 04:00 100 06/17/19 04:00 98.7 100 28 120/45 (70) 100 06/17/19 03:45 101 29 107/49 (68) 96 06/17/19 03:30 100 25 114/80 (91) 100 06/17/19 03:15 100 29 115/57 (76) 100 06/17/19 03:00 101 23 145/106 (119) 100 06/17/19 03:00 145/106 06/17/19 02:45 96 25 133/50 (77) 100 06/17/19 02:30 95 24 126/49 (74) 100 06/17/19 02:15 96 23 133/45 (74) 100 06/17/19 02:00 95 25 129/47 (74) 100 06/17/19 02:00 129/47 06/17/19 01:45 96 24 123/50 (74) 100 06/17/19 01:30 95 25 128/48 (74) 100 06/17/19 01:15 97 23 119/56 (77) 100 06/17/19 01:00 96 22 126/48 (74) 100 06/17/19 01:00 126/48 06/17/19 00:45 97 21 128/47 (74) 100 06/17/19 00:30 98 22 117/53 (74) 100 06/17/19 00:00 Room Air 06/17/19 00:00 98.7 102 28 142/55 (84) 100 06/17/19 00:00 142/55 06/17/19 00:00 105 06/16/19 23:45 101 24 139/54 (82) 100 06/16/19 23:30 101 23 138/55 (82) 100 06/16/19 23:15 101 23 139/51 (80) 100 06/16/19 23:00 147/62 06/16/19 23:00 103 20 147/62 (90) 100 06/16/19 22:45 104 19 146/72 (96) 100 06/16/19 22:30 102 22 131/65 (87) 100 06/16/19 22:15 103 25 146/57 (86) 100 06/16/19 22:00 131/51 06/16/19 22:00 102 20 131/51 (77) 100 06/16/19 21:45 102 24 137/55 (82) 100 06/16/19 21:30 102 28 141/59 (86) 100 06/16/19 21:15 102 29 140/57 (84) 100 06/16/19 21:00 131/55 06/16/19 21:00 101 30 131/55 (80) 100 06/16/19 20:45 102 37 135/60 (85) 100 06/16/19 20:30 102 23 135/50 (78) 100 06/16/19 20:15 101 33 134/53 (80) 100 06/16/19 20:03 Room Air 06/16/19 20:02 110 06/16/19 20:00 101 37 139/72 (94) 100 06/16/19 20:00 139/41 06/16/19 19:45 102 30 141/56 (84) 100 06/16/19 19:30 98.4 101 28 131/54 (79) 100 06/16/19 19:15 102 38 131/48 (75) 100 06/16/19 19:05 100 Room Air 21 06/16/19 19:05 101 20 100 Room Air 21 06/16/19 19:00 102 25 128/51 (76) 100 06/16/19 19:00 128/51 06/16/19 18:30 102 28 127/49 (75) 100 06/16/19 18:00 99.0 102 25 110/51 (70) 100 06/16/19 17:46 118/52 06/16/19 17:30 104 30 118/52 (74) 99 06/16/19 17:15 104 34 121/49 (73) 97 06/16/19 17:00 104 25 95/75 (82) 100 06/16/19 16:45 103 27 120/57 (78) 100 06/16/19 16:30 106 18 118/54 (75) 100 Intake and Output 06/16/19 06/17/19 19:00 07:00 Intake Total 2494.0 ml 1238.00 ml Output Total 0 ml 0 ml Balance 2494.0 ml 1238.00 ml Intake Oral 0 ml 0 ml IV Total 2494.0 ml 1238.00 ml Output Urine Total 0 ml 0 ml # Voids 1 # Bowel Movements 2 Laboratory Tests 06/17/19 06:20: White Blood Count 9.9, Red Blood Count 2.53L, Hemoglobin 7.4L, Hematocrit 24.1L , Mean Corpuscular Volume 95, Mean Corpuscular Hemoglobin 29.3, Mean Corpuscular Hemoglobin Concent 30.8L, Red Cell Distribution Width 17.1H, Platelet Count 172, Mean Platelet Volume 5.9L, Neutrophils (%) (Auto) , Lymphocytes (%) (Auto) , Monocytes (%) (Auto) , Eosinophils (%) (Auto) , Basophils (%) (Auto) , Differential Total Cells Counted 100, Neutrophils % ( Manual) 77H, Lymphocytes % (Manual) 16L, Monocytes % (Manual) 5, Eosinophils % ( Manual) 2, Basophils % (Manual) 0, Band Neutrophils 0, Platelet Estimate Adequate, Platelet Morphology Normal, Anisocytosis 1+, Prothrombin Time 11.1, Prothromb Time International Ratio 1.0, Activated Partial Thromboplast Time 23, Sodium Level 140, Potassium Level 3.8, Chloride Level 103, Carbon Dioxide Level 25, Anion Gap 12, Blood Urea Nitrogen 62H, Creatinine 7.5H, Estimat Glomerular Filtration Rate , Glucose Level 78#, Calcium Level 9.4, Phosphorus Level 5.0H, Magnesium Level 2.1, Total Bilirubin 0.7, Aspartate Amino Transf (AST/SGOT) 21, Alanine Aminotransferase (ALT/SGPT) 18, Alkaline Phosphatase 90, Total Protein 6.7, Albumin 2.6L, Globulin 4.1, Albumin/Globulin Ratio 0.6L, Random Vancomycin Level 22.0 Height (Feet): 3 Height (Inches): 0.00 Weight (Pounds): 155 Objective Elderly AA woman 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
[2019-06-17] MEDS: Acetaminophen 650mg/20.3ml GT PRN (17:07)
--- NOTE | 2019-06-17 18:11 | General Progress Note ---
Assessment/Plan Status: stable, unchanged Assessment/Plan: 1. Septic Shock - improved. off pressor for blood pressure control. cont IV Abx and f/u cultures. 2. ESRD on HD - on HD, last HD on wednesday. 3. Sacral pressure ulcer - may need debridement. surgery is following. 4. Upper GI bleed - H/H currently stable. s/p One unit of PRBC. GI is following. 5. Sepsis - cont IV Abx. ID following the patient. 6. HLD - cont home meds. 7. Gout - cont Allopurinol 8. H/O PVD 9. H/O DVT 10. DM II - cont SSI. 11. HTN - off meds due to septic shock. 12. H/o hemoptasis - TB rulled out. ID following. AFB Sputum negative. Subjective Date patient seen: Jun 17, 2019 Time patient seen: 18:00 Constitutional: Reports: no symptoms HEENT: Reports: no symptoms Cardiovascular: Reports: no symptoms Respiratory: Reports: cough Gastrointestinal/Abdominal: Reports: no symptoms Genitourinary: Reports: no symptoms Neurologic/Psychiatric: Reports: no symptoms Endocrine: Reports: no symptoms Hematologic/Lymphatic: Reports: anemia Allergies: Coded Allergies: GABAPENTIN (Unverified Allergy, Unknown, 06/14/19) Subjective Patient was seen in ICU. She is off pressor but she had A fib during Dialysis. she has low grade fever. No nausea or vomiting. she had HD yesterday. Objective Last 24 Hour Vital Signs Date Time Temp Pulse Resp B/P (MAP) Pulse Ox O2 Delivery O2 Flow Rate FiO2 06/17/19 17:00 96 27 112/56 (74) 100 06/17/19 16:00 99.0 93 26 133/68 (89) 100 06/17/19 16:00 Room Air 06/17/19 15:00 89 27 102/50 (67) 100 06/17/19 14:00 92 18 113/45 (67) 98 06/17/19 13:00 88 16 105/49 (67) 97 06/17/19 12:00 86 06/17/19 12:00 Room Air 06/17/19 12:00 99.6 93 26 106/42 (63) 100 06/17/19 11:00 88 16 125/43 (70) 97 06/17/19 10:00 87 19 124/43 (70) 100 06/17/19 09:00 91 27 115/48 (70) 100 06/17/19 09:00 115/48 06/17/19 08:30 92 27 105/48 (67) 100 06/17/19 08:00 Room Air 06/17/19 08:00 98 06/17/19 08:00 120/52 06/17/19 08:00 97.8 93 25 106/42 (63) 100 06/17/19 07:00 119/44 06/17/19 07:00 96 27 109/44 (65) 100 06/17/19 06:30 104 20 100 Room Air 21 06/17/19 06:30 101 25 115/54 (74) 100 06/17/19 06:30 100 Room Air 21 06/17/19 06:15 102 22 120/47 (71) 100 06/17/19 06:00 98 28 117/47 (70) 100 06/17/19 06:00 120/47 06/17/19 05:45 101 24 105/49 (67) 100 06/17/19 05:30 97 28 106/63 (77) 100 06/17/19 05:15 98 26 107/44 (65) 100 06/17/19 05:00 97 28 121/50 (73) 92 06/17/19 05:00 121/50 06/17/19 04:45 96 28 122/44 (70) 100 06/17/19 04:30 98 27 113/46 (68) 100 06/17/19 04:15 98 27 106/49 (68) 100 06/17/19 04:00 Room Air 06/17/19 04:00 114/80 06/17/19 04:00 100 06/17/19 04:00 98.7 100 28 120/45 (70) 100 06/17/19 03:45 101 29 107/49 (68) 96 06/17/19 03:30 100 25 114/80 (91) 100 06/17/19 03:15 100 29 115/57 (76) 100 06/17/19 03:00 101 23 145/106 (119) 100 06/17/19 03:00 145/106 06/17/19 02:45 96 25 133/50 (77) 100 06/17/19 02:30 95 24 126/49 (74) 100 06/17/19 02:15 96 23 133/45 (74) 100 06/17/19 02:00 95 25 129/47 (74) 100 06/17/19 02:00 129/47 06/17/19 01:45 96 24 123/50 (74) 100 06/17/19 01:30 95 25 128/48 (74) 100 06/17/19 01:15 97 23 119/56 (77) 100 06/17/19 01:00 96 22 126/48 (74) 100 06/17/19 01:00 126/48 06/17/19 00:45 97 21 128/47 (74) 100 06/17/19 00:30 98 22 117/53 (74) 100 06/17/19 00:00 Room Air 06/17/19 00:00 98.7 102 28 142/55 (84) 100 06/17/19 00:00 142/55 06/17/19 00:00 105 06/16/19 23:45 101 24 139/54 (82) 100 06/16/19 23:30 101 23 138/55 (82) 100 06/16/19 23:15 101 23 139/51 (80) 100 06/16/19 23:00 147/62 06/16/19 23:00 103 20 147/62 (90) 100 06/16/19 22:45 104 19 146/72 (96) 100 06/16/19 22:30 102 22 131/65 (87) 100 06/16/19 22:15 103 25 146/57 (86) 100 06/16/19 22:00 131/51 06/16/19 22:00 102 20 131/51 (77) 100 06/16/19 21:45 102 24 137/55 (82) 100 06/16/19 21:30 102 28 141/59 (86) 100 06/16/19 21:15 102 29 140/57 (84) 100 06/16/19 21:00 131/55 06/16/19 21:00 101 30 131/55 (80) 100 06/16/19 20:45 102 37 135/60 (85) 100 06/16/19 20:30 102 23 135/50 (78) 100 06/16/19 20:15 101 33 134/53 (80) 100 06/16/19 20:03 Room Air 06/16/19 20:02 110 06/16/19 20:00 101 37 139/72 (94) 100 06/16/19 20:00 139/41 06/16/19 19:45 102 30 141/56 (84) 100 06/16/19 19:30 98.4 101 28 131/54 (79) 100 06/16/19 19:15 102 38 131/48 (75) 100 06/16/19 19:05 100 Room Air 21 06/16/19 19:05 101 20 100 Room Air 21 06/16/19 19:00 102 25 128/51 (76) 100 06/16/19 19:00 128/51 06/16/19 18:30 102 28 127/49 (75) 100 Intake and Output 06/16/19 06/17/19 19:00 07:00 Intake Total 2494.0 ml 1238.00 ml Output Total 0 ml 0 ml Balance 2494.0 ml 1238.00 ml Intake Oral 0 ml 0 ml IV Total 2494.0 ml 1238.00 ml Output Urine Total 0 ml 0 ml # Voids 1 # Bowel Movements 2 Laboratory Tests 06/17/19 06:20: White Blood Count 9.9, Red Blood Count 2.53L, Hemoglobin 7.4L, Hematocrit 24.1L , Mean Corpuscular Volume 95, Mean Corpuscular Hemoglobin 29.3, Mean Corpuscular Hemoglobin Concent 30.8L, Red Cell Distribution Width 17.1H, Platelet Count 172, Mean Platelet Volume 5.9L, Neutrophils (%) (Auto) , Lymphocytes (%) (Auto) , Monocytes (%) (Auto) , Eosinophils (%) (Auto) , Basophils (%) (Auto) , Differential Total Cells Counted 100, Neutrophils % ( Manual) 77H, Lymphocytes % (Manual) 16L, Monocytes % (Manual) 5, Eosinophils % ( Manual) 2, Basophils % (Manual) 0, Band Neutrophils 0, Platelet Estimate Adequate, Platelet Morphology Normal, Anisocytosis 1+, Prothrombin Time 11.1, Prothromb Time International Ratio 1.0, Activated Partial Thromboplast Time 23, Sodium Level 140, Potassium Level 3.8, Chloride Level 103, Carbon Dioxide Level 25, Anion Gap 12, Blood Urea Nitrogen 62H, Creatinine 7.5H, Estimat Glomerular Filtration Rate , Glucose Level 78#, Calcium Level 9.4, Phosphorus Level 5.0H, Magnesium Level 2.1, Total Bilirubin 0.7, Aspartate Amino Transf (AST/SGOT) 21, Alanine Aminotransferase (ALT/SGPT) 18, Alkaline Phosphatase 90, Total Protein 6.7, Albumin 2.6L, Globulin 4.1, Albumin/Globulin Ratio 0.6L, Random Vancomycin Level 22.0 Height (Feet): 3 Height (Inches): 0.00 Weight (Pounds): 155 General Appearance: alert, other - bilateral Above knee amputation EENT: normal ENT inspection Neck: non-tender, supple Cardiovascular: regular rhythm Respiratory/Chest: lungs clear, normal breath sounds Abdomen: non tender, soft Edema: no edema noted Arm (L), no edema noted Arm (R), no edema noted Leg (L), no edema noted Leg (R), no edema noted Pedal (L), no edema noted Pedal (R), no edema noted Generalized Neurologic: responsive Skin: warm/dry Pam Alcantar MD Jun 17, 2019 18:11
[2019-06-17] MEDS: Dyna-Hex 2% Top Sol 2oz TOPIC SCH (20:43)
--- NOTE | 2019-06-17 21:10 | Infectious Diseases Prog Note ---
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 sputum for AFB smear x1 is negative so far await other smears , and PCR MTB . keep in air born isolation pending work up . EXPECT T spot TO be positive due to prior H/O TB. (2) Decubitus skin ulcer Assessment & Plan: with maceration and necrosis , possibly infected, had surgical eval , already on wide spectrum antibiotics , keep off loading with local wound care as needed as per hospital protocol (3) Sepsis Assessment & Plan: with shock due to staphylococcus spp with fever, source most likely sacral/buttock pressure wounds . continue vancomycin and meropenem empirically pending final blood cultures . stool for C diff is negative . echo to rule out vegetations . will repeat blood culture x2 to confirm clearance (4) GI bleed Assessment & Plan: monitor H/H , transfuse as needed, GI eval for source control (5) ESRD (end stage renal disease) on dialysis Assessment & Plan: continue HD as per renal , antibiotics renally dosed as per pharmacy (6) Anemia Assessment & Plan: due to the above , transfuse blood as needed, GI eval for source control Subjective ROS Limited/Unobtainable: Yes Allergies: Coded Allergies: GABAPENTIN (Unverified Allergy, Unknown, 06/14/19) Subjective she was resting in bed in ICU, quiet, nonverbal, no cough or hemoptysis today, had no bowel movements today Objective Vital Signs Last 24 Hour Vital Signs Date Time Temp Pulse Resp B/P (MAP) Pulse Ox O2 Delivery O2 Flow Rate FiO2 06/17/19 20:00 97 06/17/19 20:00 Room Air 06/17/19 20:00 99.1 93 20 119/52 (74) 99 06/17/19 19:23 100 Room Air 21 06/17/19 19:22 89 25 100 Room Air 21 06/17/19 19:00 97 23 107/46 (66) 100 06/17/19 18:00 97 27 111/45 (67) 100 06/17/19 17:37 99.0 06/17/19 17:00 96 27 112/56 (74) 100 06/17/19 16:00 99.0 93 26 133/68 (89) 100 06/17/19 16:00 Room Air 06/17/19 16:00 98 06/17/19 15:00 89 27 102/50 (67) 100 06/17/19 14:00 92 18 113/45 (67) 98 06/17/19 13:00 88 16 105/49 (67) 97 06/17/19 12:00 86 06/17/19 12:00 Room Air 06/17/19 12:00 99.6 93 26 106/42 (63) 100 06/17/19 11:00 88 16 125/43 (70) 97 06/17/19 10:00 87 19 124/43 (70) 100 06/17/19 09:00 91 27 115/48 (70) 100 06/17/19 09:00 115/48 06/17/19 08:30 92 27 105/48 (67) 100 06/17/19 08:00 Room Air 06/17/19 08:00 98 06/17/19 08:00 120/52 06/17/19 08:00 97.8 93 25 106/42 (63) 100 06/17/19 07:00 119/44 06/17/19 07:00 96 27 109/44 (65) 100 06/17/19 06:30 104 20 100 Room Air 21 06/17/19 06:30 101 25 115/54 (74) 100 06/17/19 06:30 100 Room Air 21 06/17/19 06:15 102 22 120/47 (71) 100 06/17/19 06:00 98 28 117/47 (70) 100 06/17/19 06:00 120/47 06/17/19 05:45 101 24 105/49 (67) 100 06/17/19 05:30 97 28 106/63 (77) 100 06/17/19 05:15 98 26 107/44 (65) 100 06/17/19 05:00 97 28 121/50 (73) 92 06/17/19 05:00 121/50 06/17/19 04:45 96 28 122/44 (70) 100 06/17/19 04:30 98 27 113/46 (68) 100 06/17/19 04:15 98 27 106/49 (68) 100 06/17/19 04:00 Room Air 06/17/19 04:00 114/80 06/17/19 04:00 100 06/17/19 04:00 98.7 100 28 120/45 (70) 100 06/17/19 03:45 101 29 107/49 (68) 96 06/17/19 03:30 100 25 114/80 (91) 100 06/17/19 03:15 100 29 115/57 (76) 100 06/17/19 03:00 101 23 145/106 (119) 100 06/17/19 03:00 145/106 06/17/19 02:45 96 25 133/50 (77) 100 06/17/19 02:30 95 24 126/49 (74) 100 06/17/19 02:15 96 23 133/45 (74) 100 06/17/19 02:00 95 25 129/47 (74) 100 06/17/19 02:00 129/47 06/17/19 01:45 96 24 123/50 (74) 100 06/17/19 01:30 95 25 128/48 (74) 100 06/17/19 01:15 97 23 119/56 (77) 100 06/17/19 01:00 96 22 126/48 (74) 100 06/17/19 01:00 126/48 06/17/19 00:45 97 21 128/47 (74) 100 06/17/19 00:30 98 22 117/53 (74) 100 06/17/19 00:00 Room Air 06/17/19 00:00 98.7 102 28 142/55 (84) 100 06/17/19 00:00 142/55 06/17/19 00:00 105 06/16/19 23:45 101 24 139/54 (82) 100 06/16/19 23:30 101 23 138/55 (82) 100 06/16/19 23:15 101 23 139/51 (80) 100 06/16/19 23:00 147/62 06/16/19 23:00 103 20 147/62 (90) 100 06/16/19 22:45 104 19 146/72 (96) 100 06/16/19 22:30 102 22 131/65 (87) 100 06/16/19 22:15 103 25 146/57 (86) 100 06/16/19 22:00 131/51 06/16/19 22:00 102 20 131/51 (77) 100 06/16/19 21:45 102 24 137/55 (82) 100 06/16/19 21:30 102 28 141/59 (86) 100 06/16/19 21:15 102 29 140/57 (84) 100 Height (Feet): 3 Height (Inches): 0.00 Weight (Pounds): 155 General Appearance: WD/WN, no acute distress HEENT: normocephalic, atraumatic, anicteric, mucous membranes moist, PERRL, supple, no JVD Respiratory/Chest: chest wall non-tender, no respiratory distress, no accessory muscle use, decreased breath sounds, crackles/rales Cardiovascular: normal peripheral pulses, normal rate, regular rhythm, no gallop/murmur, no JVD Abdomen: normal bowel sounds, soft, non tender, no organomegaly, non distended , no mass, no scars Genitourinary: normal external genitalia Extremities: no cyanosis, no clubbing Skin: no rash, no lesions, ulcers Neurologic/Psychiatric: unresponsiveness Lymphatic: no neck adenopathy, no groin adenopathy Musculoskeletal: normal muscle bulk Microbiology Date/Time Source Procedure Growth Status 06/16/19 03:30 Sputum AFB Specimen Processing Tissue - Final Resulted 06/16/19 03:30 Sputum Acid Fast Bacilli Smear - Final Resulted 06/16/19 03:30 Sputum Acid Fast Bacilli Culture Pending Resulted 06/16/19 04:15 Stool Clostridium difficile Toxin Assay - Final Complete Laboratory Tests Test 06/17/19 06:20 White Blood Count 9.9 K/UL (4.8-10.8) Red Blood Count 2.53 M/UL (4.20-5.40) L Hemoglobin 7.4 G/DL (12.0-16.0) L Hematocrit 24.1 % (37.0-47.0) L Mean Corpuscular Volume 95 FL (80-99) Mean Corpuscular Hemoglobin 29.3 PG (27.0-31.0) Mean Corpuscular Hemoglobin Concent 30.8 G/DL (32.0-36.0) L Red Cell Distribution Width 17.1 % (11.6-14.8) H Platelet Count 172 K/UL (150-450) Mean Platelet Volume 5.9 FL (6.5-10.1) L Neutrophils (%) (Auto) % (45.0-75.0) Lymphocytes (%) (Auto) % (20.0-45.0) Monocytes (%) (Auto) % (1.0-10.0) Eosinophils (%) (Auto) % (0.0-3.0) Basophils (%) (Auto) % (0.0-2.0) Differential Total Cells Counted 100 Neutrophils % (Manual) 77 % (45-75) H Lymphocytes % (Manual) 16 % (20-45) L Monocytes % (Manual) 5 % (1-10) Eosinophils % (Manual) 2 % (0-3) Basophils % (Manual) 0 % (0-2) Band Neutrophils 0 % (0-8) Platelet Estimate Adequate Platelet Morphology Normal Anisocytosis 1+ Prothrombin Time 11.1 SEC (9.30-11.50) Prothromb Time International Ratio 1.0 (0.9-1.1) Activated Partial Thromboplast Time 23 SEC (23-33) Sodium Level 140 MMOL/L (136-145) Potassium Level 3.8 MMOL/L (3.5-5.1) Chloride Level 103 MMOL/L (98-107) Carbon Dioxide Level 25 MMOL/L (21-32) Anion Gap 12 mmol/L (5-15) Blood Urea Nitrogen 62 mg/dL (7-18) H Creatinine 7.5 MG/DL (0.55-1.30) H Estimat Glomerular Filtration Rate mL/min (>60) Glucose Level 78 MG/DL (74-106) # Calcium Level 9.4 MG/DL (8.5-10.1) Phosphorus Level 5.0 MG/DL (2.5-4.9) H Magnesium Level 2.1 MG/DL (1.8-2.4) Total Bilirubin 0.7 MG/DL (0.2-1.0) Aspartate Amino Transf (AST/SGOT) 21 U/L (15-37) Alanine Aminotransferase (ALT/SGPT) 18 U/L (12-78) Alkaline Phosphatase 90 U/L (46-116) Total Protein 6.7 G/DL (6.4-8.2) Albumin 2.6 G/DL (3.4-5.0) L Globulin 4.1 g/dL Albumin/Globulin Ratio 0.6 (1.0-2.7) L Random Vancomycin Level 22.0 ug/mL Current Medications Medications (Trade) Dose Ordered Sig/Selene Route PRN Reason Start Time Stop Time Status Last Admin Dose Admin Acetaminophen (Tylenol) 650 mg Q4H PRN GT Fever 06/14/19 17:45 07/14/19 17:44 06/17/19 17:07 Albuterol/ Ipratropium (Albuterol/ Ipratropium) 3 ml Q4H PRN HHN Shortness of Breath 06/14/19 17:45 06/19/19 17:44 Chlorhexidine Gluconate (Ivory-Hex 2%) 1 applic DAILY@2000 TOPIC 06/15/19 20:00 07/15/19 19:59 06/17/19 20:43 Dextrose/Sodium Chloride 1,000 ml @ 50 mls/hr Q20H IV 06/17/19 07:30 07/17/19 07:29 06/17/19 06:52 Hydralazine HCl (Apresoline) 25 mg Q6H PRN ORAL For High Blood Pressure 06/14/19 21:00 07/14/19 20:59 Insulin Aspart (NovoLOG) BEFORE MEALS AND HS SUBQ 06/14/19 21:00 07/14/19 20:59 06/16/19 16:13 Lorazepam (Ativan 2mg/ml 1ml) 2 mg Q4H PRN IV For Anxiety 06/14/19 17:45 06/21/19 17:44 Meropenem 500 mg/ Sodium Chloride 55 ml @ 110 mls/hr Q24H IVPB 06/16/19 15:00 06/21/19 14:59 06/17/19 15:03 Morphine Sulfate (Morphine Sulfate) 4 mg Q4H PRN IVP For Pain 06/14/19 17:45 06/21/19 17:44 Norepinephrine Bitartrate 4 mg/ Dextrose 250 ml @ 0 mls/hr Q24H IV 06/15/19 02:15 07/15/19 02:14 06/16/19 17:46 Ondansetron HCl (Zofran) 4 mg Q6H PRN IVP Nausea & Vomiting 06/14/19 17:45 07/14/19 17:44 Pantoprazole 80 mg/Sodium Chloride 250 ml @ 25 mls/hr Q10H IV 06/14/19 17:00 07/14/19 16:59 06/17/19 17:08 Vancomycin HCl (Vanco rx to dose) 1 ea DAILY PRN MISC Per rx protocol 06/14/19 19:45 07/14/19 19:44 Vancomycin HCl 1 gm/Dextrose 275 ml @ 183.708 mls/hr ONCE ONCE IVPB 06/18/19 12:00 06/18/19 13:29 Morteza Castillo M.D. Jun 17, 2019 21:10
--- NOTE | 2019-06-17 21:36 | Surgery Progress Note ---
Surgery Progress Note Subjective Symptoms: improved Additional Comments off pressors today EGD planned for wednesday h/h stable no active bleeding exam stable dressings being changed. Objective Last 24 Hour Vital Signs Date Time Temp Pulse Resp B/P (MAP) Pulse Ox O2 Delivery O2 Flow Rate FiO2 06/17/19 20:00 97 06/17/19 20:00 Room Air 06/17/19 20:00 99.1 93 20 119/52 (74) 99 06/17/19 19:23 100 Room Air 21 06/17/19 19:22 89 25 100 Room Air 21 06/17/19 19:00 97 23 107/46 (66) 100 06/17/19 18:00 97 27 111/45 (67) 100 06/17/19 17:37 99.0 06/17/19 17:00 96 27 112/56 (74) 100 06/17/19 16:00 99.0 93 26 133/68 (89) 100 06/17/19 16:00 Room Air 06/17/19 16:00 98 06/17/19 15:00 89 27 102/50 (67) 100 06/17/19 14:00 92 18 113/45 (67) 98 06/17/19 13:00 88 16 105/49 (67) 97 06/17/19 12:00 86 06/17/19 12:00 Room Air 06/17/19 12:00 99.6 93 26 106/42 (63) 100 06/17/19 11:00 88 16 125/43 (70) 97 06/17/19 10:00 87 19 124/43 (70) 100 06/17/19 09:00 91 27 115/48 (70) 100 06/17/19 09:00 115/48 06/17/19 08:30 92 27 105/48 (67) 100 06/17/19 08:00 Room Air 06/17/19 08:00 98 06/17/19 08:00 120/52 06/17/19 08:00 97.8 93 25 106/42 (63) 100 06/17/19 07:00 119/44 06/17/19 07:00 96 27 109/44 (65) 100 06/17/19 06:30 104 20 100 Room Air 21 06/17/19 06:30 101 25 115/54 (74) 100 06/17/19 06:30 100 Room Air 21 06/17/19 06:15 102 22 120/47 (71) 100 06/17/19 06:00 98 28 117/47 (70) 100 06/17/19 06:00 120/47 06/17/19 05:45 101 24 105/49 (67) 100 06/17/19 05:30 97 28 106/63 (77) 100 06/17/19 05:15 98 26 107/44 (65) 100 06/17/19 05:00 97 28 121/50 (73) 92 06/17/19 05:00 121/50 06/17/19 04:45 96 28 122/44 (70) 100 06/17/19 04:30 98 27 113/46 (68) 100 06/17/19 04:15 98 27 106/49 (68) 100 06/17/19 04:00 Room Air 06/17/19 04:00 114/80 06/17/19 04:00 100 06/17/19 04:00 98.7 100 28 120/45 (70) 100 06/17/19 03:45 101 29 107/49 (68) 96 06/17/19 03:30 100 25 114/80 (91) 100 06/17/19 03:15 100 29 115/57 (76) 100 06/17/19 03:00 101 23 145/106 (119) 100 06/17/19 03:00 145/106 06/17/19 02:45 96 25 133/50 (77) 100 06/17/19 02:30 95 24 126/49 (74) 100 06/17/19 02:15 96 23 133/45 (74) 100 06/17/19 02:00 95 25 129/47 (74) 100 06/17/19 02:00 129/47 06/17/19 01:45 96 24 123/50 (74) 100 06/17/19 01:30 95 25 128/48 (74) 100 06/17/19 01:15 97 23 119/56 (77) 100 06/17/19 01:00 96 22 126/48 (74) 100 06/17/19 01:00 126/48 06/17/19 00:45 97 21 128/47 (74) 100 06/17/19 00:30 98 22 117/53 (74) 100 06/17/19 00:00 Room Air 06/17/19 00:00 98.7 102 28 142/55 (84) 100 06/17/19 00:00 142/55 06/17/19 00:00 105 06/16/19 23:45 101 24 139/54 (82) 100 06/16/19 23:30 101 23 138/55 (82) 100 06/16/19 23:15 101 23 139/51 (80) 100 06/16/19 23:00 147/62 06/16/19 23:00 103 20 147/62 (90) 100 06/16/19 22:45 104 19 146/72 (96) 100 06/16/19 22:30 102 22 131/65 (87) 100 06/16/19 22:15 103 25 146/57 (86) 100 06/16/19 22:00 131/51 06/16/19 22:00 102 20 131/51 (77) 100 06/16/19 21:45 102 24 137/55 (82) 100 I&O Intake and Output 06/16/19 06/17/19 19:00 07:00 Intake Total 2494.0 ml 1238.00 ml Output Total 0 ml 0 ml Balance 2494.0 ml 1238.00 ml Intake Oral 0 ml 0 ml IV Total 2494.0 ml 1238.00 ml Output Urine Total 0 ml 0 ml # Voids 1 # Bowel Movements 2 Dressing: saturated Wound: other Drains: other Cardiovascular: RSR Respiratory: decreased breath sounds Abdomen: soft, present bowel sounds Extremities: no cyanosis Laboratory Tests Test 06/17/19 06:20 White Blood Count 9.9 K/UL (4.8-10.8) Red Blood Count 2.53 M/UL (4.20-5.40) L Hemoglobin 7.4 G/DL (12.0-16.0) L Hematocrit 24.1 % (37.0-47.0) L Mean Corpuscular Volume 95 FL (80-99) Mean Corpuscular Hemoglobin 29.3 PG (27.0-31.0) Mean Corpuscular Hemoglobin Concent 30.8 G/DL (32.0-36.0) L Red Cell Distribution Width 17.1 % (11.6-14.8) H Platelet Count 172 K/UL (150-450) Mean Platelet Volume 5.9 FL (6.5-10.1) L Neutrophils (%) (Auto) % (45.0-75.0) Lymphocytes (%) (Auto) % (20.0-45.0) Monocytes (%) (Auto) % (1.0-10.0) Eosinophils (%) (Auto) % (0.0-3.0) Basophils (%) (Auto) % (0.0-2.0) Differential Total Cells Counted 100 Neutrophils % (Manual) 77 % (45-75) H Lymphocytes % (Manual) 16 % (20-45) L Monocytes % (Manual) 5 % (1-10) Eosinophils % (Manual) 2 % (0-3) Basophils % (Manual) 0 % (0-2) Band Neutrophils 0 % (0-8) Platelet Estimate Adequate Platelet Morphology Normal Anisocytosis 1+ Prothrombin Time 11.1 SEC (9.30-11.50) Prothromb Time International Ratio 1.0 (0.9-1.1) Activated Partial Thromboplast Time 23 SEC (23-33) Sodium Level 140 MMOL/L (136-145) Potassium Level 3.8 MMOL/L (3.5-5.1) Chloride Level 103 MMOL/L (98-107) Carbon Dioxide Level 25 MMOL/L (21-32) Anion Gap 12 mmol/L (5-15) Blood Urea Nitrogen 62 mg/dL (7-18) H Creatinine 7.5 MG/DL (0.55-1.30) H Estimat Glomerular Filtration Rate mL/min (>60) Glucose Level 78 MG/DL (74-106) # Calcium Level 9.4 MG/DL (8.5-10.1) Phosphorus Level 5.0 MG/DL (2.5-4.9) H Magnesium Level 2.1 MG/DL (1.8-2.4) Total Bilirubin 0.7 MG/DL (0.2-1.0) Aspartate Amino Transf (AST/SGOT) 21 U/L (15-37) Alanine Aminotransferase (ALT/SGPT) 18 U/L (12-78) Alkaline Phosphatase 90 U/L (46-116) Total Protein 6.7 G/DL (6.4-8.2) Albumin 2.6 G/DL (3.4-5.0) L Globulin 4.1 g/dL Albumin/Globulin Ratio 0.6 (1.0-2.7) L Random Vancomycin Level 22.0 ug/mL Plan Problems: (1) Decubitus skin ulcer Assessment & Plan: Pt presented on admission with multiple full thickness pressure injuries R ,L buttocks and L ischium .R sacrum extending down to lower R buttocks erythematous with multiple areas with slough,(+) maceration along edges and periwound. Wound is malodorous. Wound with sloth that easily removed with non excisional debridement during clean up / washing. L sacrum extending into L lower buttocks erythematous ,macerated with scattered areas of yellow slough through out base of wound.Wound is malodorous. Small amt seropurulent exudate noted.Periwound noted to have darker skin tone that is indurated. L ischium darker than is normal skin tone and indurated with scattered open wound exuding small amt serous exudate. Incontinence associated dermatitis noted to perineum and medial aspects of both upper thigh.Skin is erythematous and denuded. Pt presented on admission in grossly unkempt state. Full thickness pressure injury to sacrum extending to R and L ischial regions.(L)18cm x (W)14cm. Sacral pressure injury measures(L)6cm x (W)8cm x (D)0.4cm. Scattered slough at base of wound. Muscle is palpable. Wound is now viable. Full thickness wounds R and L buttocks with scattered slough. Non-blanchable erythema with additional skin erosions periwound. Moisture Intertrigo noted to bilat breasts folds. abd folds and bilat groin areas. Skin is dry dry and flaky to both AKA stumps. Small partial thickness wound noted to L AKA (L)0.4cm x (W)0.4cm. Base of wound is moist and viable. Wound cleaned at bedside and non-excisional debridement performed of sloth. Underlying tissue fairly healthy. The is now a stage IV sacral decubitus ulcer in the central portion right above the coccyx with palpable musculature. Wound is deteriorated since last admission. Tx.Plan: Cleanse wound Sacrum with saline. Apply Therahoney to Sacrum,R and L buttocks. Apply Moisture Barrier Paste periwound. Cover with Optifoam drsg Daily and prn. Apply Moisture Barrier Paste to folds of both breasts,abd folds ,and bilat groin areas with each incontinence care. Apply Cavilon Skin Barrier to L AKA daily. Reposition at least every 2hours or as tolerated. Off-load heels with pillow. APM/TIAGO mattress overlay. (2) Sepsis Assessment & Plan: 84-year-old female with hypotension, tachycardia, leukocytosis, abnormal labs. Currently in intensive care unit Right femoral central venous catheter recently placed Receiving IV fluid resuscitation On IV antibiotics as per infectious disease Trend labs We will follow with recommendations (3) GI bleed Assessment & Plan: Noted to have hematemesis while in nursing facility. No acute episode of hematemesis at this time stool is noted to be fairly dark Appreciate GI input Willian Machado Jun 17, 2019 21:36
[2019-06-18] VITALS (24 sets, daily range): BP systolic 96–146; BP diastolic 31–94
[2019-06-18] MEDS: Pantoprazole 80 MG in NS 250 ML IV SCH ×3 (04:11→21:00)
[2019-06-18] MEDS: D5NS 1,000 ML IV SCH (04:12)
[2019-06-18 06:08] LABS: BASOPHILS % (AUTO) 0.5 % (0.0-2.0); EOSINOPHILS % (AUTO) 1.3 % (0.0-3.0); HEMATOCRIT 30.3 % (37.0-47.0); HEMOGLOBIN 9.4 G/DL (12.0-16.0); LYMPHOCYTES % (AUTO) 8.9 % (20.0-45.0); MEAN CORPUSCULAR VOLUME 93 FL (80-99); MONOCYTES % (AUTO) 5.3 % (1.0-10.0); PLATELET COUNT 173 K/UL (150-450); RED BLOOD COUNT 3.26 M/UL (4.20-5.40); RED CELL DISTRIBUTION WIDTH 17.3 % (11.6-14.8); WHITE BLOOD COUNT 10.9 K/UL (4.8-10.8)
[2019-06-18] MEDS: NovoLOG Insulin Flexpen SUBQ SCH ×4 (06:13→20:15)
--- NOTE | 2019-06-18 07:02 | Pulmonolgy Critical Care Note ---
Critical Care - Asmt/Plan Problems: (1) Septic shock (2) GI bleed (3) ESRD (end stage renal disease) on dialysis (4) Decubitus skin ulcer (5) HTN (hypertension) (6) DM (diabetes mellitus) (7) G tube feedings (8) Colonization with VRE (vancomycin-resistant enterococcus) Assessment/Plan: off Levophed of 2 ugm there is no need for respiratory isolation Respiratory: monitor respiratory rate, adjust FIO2 Cardiac: continue to monitor HR/BP, other - off levophed drip Renal: F/U I&O, keep IV fluid Infectious Disease: check cultures Gastrointestinal: continue feedings/current rate, other - EGD for tomorrow, Endocrine: monitor blood sugar, check HgA1C Hematologic: transfuse if hgb<8.5 Neurologic: PRN Ativan, PRN Morphine, keep patient comfortable Affect: PRN ativan Prophylaxis: Protonix Notes Reviewed: cardio Discussed with: nurses, consultants, case checkerfinancial risk manager - Objective Last 24 Hour Vital Signs Date Time Temp Pulse Resp B/P (MAP) Pulse Ox O2 Delivery O2 Flow Rate FiO2 06/18/19 06:00 102 30 126/49 (74) 98 06/18/19 05:00 105 28 122/93 (103) 88 06/18/19 04:00 Room Air 06/18/19 04:00 99.3 93 26 120/53 (75) 100 06/18/19 04:00 94 06/18/19 03:00 90 23 119/54 (75) 100 06/18/19 02:15 120/53 06/18/19 02:00 88 25 103/49 (67) 100 06/18/19 01:00 87 24 124/61 (82) 100 06/18/19 00:00 89 06/18/19 00:00 Room Air 06/18/19 00:00 99.6 93 25 123/62 (82) 100 06/17/19 23:00 90 23 120/51 (74) 94 06/17/19 22:00 91 23 112/48 (69) 99 06/17/19 21:00 94 24 134/55 (81) 99 06/17/19 20:00 97 06/17/19 20:00 Room Air 06/17/19 20:00 99.1 93 20 119/52 (74) 99 06/17/19 19:23 100 Room Air 21 06/17/19 19:22 89 25 100 Room Air 21 06/17/19 19:00 97 23 107/46 (66) 100 06/17/19 18:00 97 27 111/45 (67) 100 06/17/19 17:37 99.0 06/17/19 17:00 96 27 112/56 (74) 100 06/17/19 16:00 99.0 93 26 133/68 (89) 100 06/17/19 16:00 Room Air 06/17/19 16:00 98 06/17/19 15:00 89 27 102/50 (67) 100 06/17/19 14:00 92 18 113/45 (67) 98 06/17/19 13:00 88 16 105/49 (67) 97 06/17/19 12:00 86 06/17/19 12:00 Room Air 06/17/19 12:00 99.6 93 26 106/42 (63) 100 06/17/19 11:00 88 16 125/43 (70) 97 06/17/19 10:00 87 19 124/43 (70) 100 06/17/19 09:00 91 27 115/48 (70) 100 06/17/19 09:00 115/48 06/17/19 08:30 92 27 105/48 (67) 100 06/17/19 08:00 Room Air 06/17/19 08:00 98 06/17/19 08:00 120/52 06/17/19 08:00 97.8 93 25 106/42 (63) 100 Status: awake Condition: critical HEENT: atraumatic Neck: full ROM Lungs: clear Heart: HR/BP stable, regular Abdomen: soft, non-tender Micro: Microbiology Date/Time Source Procedure Growth Status 06/16/19 03:30 Sputum AFB Specimen Processing Tissue - Final Resulted 06/16/19 03:30 Sputum Acid Fast Bacilli Smear - Final Resulted 06/16/19 03:30 Sputum Acid Fast Bacilli Culture Pending Resulted 06/16/19 04:15 Stool Clostridium difficile Toxin Assay - Final Complete Accucheck: 87 Critical Care - Subjective Condition: critical, improving EKG Rhythm: Sinus Rhythm FI02: 21 Sputum Amount: None I&O: Intake and Output 06/17/19 06/18/19 19:00 07:00 Intake Total 1137.5 ml 750 ml Output Total 0 ml 0 ml Balance 1137.5 ml 750 ml Intake Oral 0 ml 0 ml IV Total 887.5 ml 750 ml Blood Product 250 ml Output Urine Total 0 ml 0 ml Hemodialysis UF 0 ml # Bowel Movements 2 Labs: Laboratory Tests Test 06/18/19 05:00 06/18/19 05:20 Sodium Level Pending Potassium Level Pending Chloride Level Pending Carbon Dioxide Level Pending Blood Urea Nitrogen Pending Creatinine Pending Estimat Glomerular Filtration Rate Pending Glucose Level Pending Calcium Level Pending Phosphorus Level Pending Magnesium Level Pending Total Bilirubin Pending Aspartate Amino Transf (AST/SGOT) Pending Alanine Aminotransferase (ALT/SGPT) Pending Alkaline Phosphatase Pending C-Reactive Protein, Quantitative Pending Total Protein Pending Albumin Pending Globulin Pending White Blood Count 10.9 K/UL (4.8-10.8) H Red Blood Count 3.26 M/UL (4.20-5.40) L Hemoglobin 9.4 G/DL (12.0-16.0) L Hematocrit 30.3 % (37.0-47.0) L Mean Corpuscular Volume 93 FL (80-99) Mean Corpuscular Hemoglobin 28.9 PG (27.0-31.0) Mean Corpuscular Hemoglobin Concent 31.1 G/DL (32.0-36.0) L Red Cell Distribution Width 17.3 % (11.6-14.8) H Platelet Count 173 K/UL (150-450) Mean Platelet Volume 6.1 FL (6.5-10.1) L Neutrophils (%) (Auto) 84.0 % (45.0-75.0) H Lymphocytes (%) (Auto) 8.9 % (20.0-45.0) L Monocytes (%) (Auto) 5.3 % (1.0-10.0) Eosinophils (%) (Auto) 1.3 % (0.0-3.0) Basophils (%) (Auto) 0.5 % (0.0-2.0) Erythrocyte Sedimentation Rate Pending Rosemary Lui MD Jun 18, 2019 07:02
[2019-06-18 07:12] LABS: ALANINE AMINOTRANSFERASE 9 U/L (12-78); ALBUMIN 2.3 G/DL (3.4-5.0); ALBUMIN/GLOBULIN RATIO 0.5 (1.0-2.7); ALKALINE PHOSPHATASE 85 U/L (46-116); ANION GAP 11 mmol/L (5-15); ASPARTATE AMINO TRANSFERASE 18 U/L (15-37); BLOOD UREA NITROGEN 28 mg/dL (7-18); CALCIUM 9.1 MG/DL (8.5-10.1); CARBON DIOXIDE 26 MMOL/L (21-32); CHLORIDE 104 MMOL/L (98-107); CREATININE 4.9 MG/DL (0.55-1.30); PHOSPHORUS 3.8 MG/DL (2.5-4.9); POTASSIUM 3.3 MMOL/L (3.5-5.1); SODIUM 141 MMOL/L (136-145)
[2019-06-18] MEDS: Acetaminophen 650mg/20.3ml GT PRN (08:08)
--- NOTE | 2019-06-18 11:03 | Cardiac Electrophysiology PN ---
Subjective Subjective [id number] Objective Last 24 Hour Vital Signs Date Time Temp Pulse Resp B/P (MAP) Pulse Ox O2 Delivery O2 Flow Rate FiO2 06/18/19 09:00 100.8 88 22 96/31 (52) 99 06/18/19 08:38 100.8 06/18/19 08:00 101.6 104 29 114/45 (68) 100 06/18/19 08:00 101 06/18/19 08:00 Room Air 06/18/19 07:00 104 31 113/64 (80) 100 06/18/19 06:00 102 30 126/49 (74) 98 06/18/19 05:00 105 28 122/93 (103) 88 06/18/19 05:00 105 28 122/93 (103) 88 06/18/19 04:00 Room Air 06/18/19 04:00 93 26 120/53 (75) 100 06/18/19 04:00 99.3 93 26 120/53 (75) 100 06/18/19 04:00 94 06/18/19 03:00 90 23 119/54 (75) 100 06/18/19 03:00 90 23 119/54 (75) 100 06/18/19 02:15 120/53 06/18/19 02:00 88 25 103/49 (67) 100 06/18/19 02:00 88 25 103/49 (67) 100 06/18/19 01:00 87 24 124/61 (82) 100 06/18/19 01:00 87 24 124/61 (82) 100 06/18/19 00:00 93 25 123/62 (82) 100 06/18/19 00:00 89 06/18/19 00:00 Room Air 06/18/19 00:00 99.6 93 25 123/62 (82) 100 06/17/19 23:00 90 23 120/51 (74) 94 06/17/19 22:00 91 23 112/48 (69) 99 06/17/19 21:00 94 24 134/55 (81) 99 06/17/19 20:00 97 06/17/19 20:00 Room Air 06/17/19 20:00 99.1 93 20 119/52 (74) 99 06/17/19 19:23 100 Room Air 21 06/17/19 19:22 89 25 100 Room Air 21 06/17/19 19:00 97 23 107/46 (66) 100 06/17/19 18:00 97 27 111/45 (67) 100 06/17/19 17:00 96 27 112/56 (74) 100 06/17/19 16:00 99.0 93 26 133/68 (89) 100 06/17/19 16:00 Room Air 06/17/19 16:00 98 06/17/19 15:00 89 27 102/50 (67) 100 06/17/19 14:00 92 18 113/45 (67) 98 06/17/19 13:00 88 16 105/49 (67) 97 06/17/19 12:00 86 06/17/19 12:00 Room Air 06/17/19 12:00 99.6 93 26 106/42 (63) 100 Intake and Output 06/17/19 06/18/19 18:59 06:59 Intake Total 1083.0 ml 825 ml Output Total 0 ml 0 ml Balance 1083.0 ml 825 ml Intake Oral 0 ml 0 ml IV Total 833.0 ml 825 ml Blood Product 250 ml Output Urine Total 0 ml 0 ml Hemodialysis UF 0 ml 0 ml # Bowel Movements 2 Laboratory Tests Test 06/18/19 05:00 06/18/19 05:20 Sodium Level 141 MMOL/L (136-145) Potassium Level 3.3 MMOL/L (3.5-5.1) L Chloride Level 104 MMOL/L (98-107) Carbon Dioxide Level 26 MMOL/L (21-32) Anion Gap 11 mmol/L (5-15) Blood Urea Nitrogen 28 mg/dL (7-18) H Creatinine 4.9 MG/DL (0.55-1.30) H Estimat Glomerular Filtration Rate mL/min (>60) Glucose Level 89 MG/DL (74-106) Calcium Level 9.1 MG/DL (8.5-10.1) Phosphorus Level 3.8 MG/DL (2.5-4.9) Magnesium Level 1.9 MG/DL (1.8-2.4) Total Bilirubin 1.0 MG/DL (0.2-1.0) Aspartate Amino Transf (AST/SGOT) 18 U/L (15-37) Alanine Aminotransferase (ALT/SGPT) 9 U/L (12-78) L Alkaline Phosphatase 85 U/L (46-116) C-Reactive Protein, Quantitative 22.9 mg/dL (0.00-0.90) H Total Protein 6.6 G/DL (6.4-8.2) Albumin 2.3 G/DL (3.4-5.0) L Globulin 4.3 g/dL Albumin/Globulin Ratio 0.5 (1.0-2.7) L White Blood Count 10.9 K/UL (4.8-10.8) H Red Blood Count 3.26 M/UL (4.20-5.40) L Hemoglobin 9.4 G/DL (12.0-16.0) L Hematocrit 30.3 % (37.0-47.0) L Mean Corpuscular Volume 93 FL (80-99) Mean Corpuscular Hemoglobin 28.9 PG (27.0-31.0) Mean Corpuscular Hemoglobin Concent 31.1 G/DL (32.0-36.0) L Red Cell Distribution Width 17.3 % (11.6-14.8) H Platelet Count 173 K/UL (150-450) Mean Platelet Volume 6.1 FL (6.5-10.1) L Neutrophils (%) (Auto) 84.0 % (45.0-75.0) H Lymphocytes (%) (Auto) 8.9 % (20.0-45.0) L Monocytes (%) (Auto) 5.3 % (1.0-10.0) Eosinophils (%) (Auto) 1.3 % (0.0-3.0) Basophils (%) (Auto) 0.5 % (0.0-2.0) Erythrocyte Sedimentation Rate 107 MM/HR (0-30) H Microbiology Date/Time Source Procedure Growth Status 06/16/19 03:30 Sputum AFB Specimen Processing Tissue - Final Resulted 06/16/19 03:30 Sputum Acid Fast Bacilli Smear - Final Resulted 06/16/19 03:30 Sputum Acid Fast Bacilli Culture Pending Resulted 06/16/19 04:15 Stool Clostridium difficile Toxin Assay - Final Complete Will Osborne MD Jun 18, 2019 11:03
--- NOTE | 2019-06-18 11:43 | General Progress Note ---
Assessment/Plan Status: stable, unchanged Assessment/Plan: 1. Septic Shock - improved. off pressor for blood pressure but she still is hypotensive and febrile. cont IV Abx and f/u cultures. will hold in ICU today and reassess tomorrow. 2. ESRD on HD - on HD, last HD on wednesday. 3. Sacral pressure ulcer - may need debridement. surgery is following. 4. Upper GI bleed - H/H currently stable. s/p One unit of PRBC. GI is following. 5. Sepsis - cont IV Abx. ID following the patient. blood cultures showed staph Epidermatous. 6. HLD - cont home meds. 7. Gout - cont Allopurinol 8. H/O PVD 9. H/O DVT 10. DM II - cont SSI. 11. HTN - off meds due to septic shock. 12. 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 Subjective Date patient seen: Jun 18, 2019 Time patient seen: 11:15 Constitutional: Reports: fever HEENT: Reports: no symptoms Respiratory: Reports: no symptoms Gastrointestinal/Abdominal: Reports: no symptoms Genitourinary: Reports: no symptoms Neurologic/Psychiatric: Reports: no symptoms Endocrine: Reports: no symptoms Hematologic/Lymphatic: Reports: anemia Allergies: Coded Allergies: GABAPENTIN (Unverified Allergy, Unknown, 06/14/19) Subjective Patient was seen in ICU. She is off pressor but still slightly hypotensive with bp in 80's this morning. she had Tmax of 101.6 today. No nausea or vomiting. she is ESRD on HD. Objective Last 24 Hour Vital Signs Date Time Temp Pulse Resp B/P (MAP) Pulse Ox O2 Delivery O2 Flow Rate FiO2 06/18/19 10:00 87 21 99/33 (55) 99 06/18/19 09:00 100.8 88 22 96/31 (52) 99 06/18/19 08:38 100.8 06/18/19 08:00 101.6 104 29 114/45 (68) 100 06/18/19 08:00 101 06/18/19 08:00 Room Air 06/18/19 07:00 104 31 113/64 (80) 100 06/18/19 06:00 102 30 126/49 (74) 98 06/18/19 05:00 105 28 122/93 (103) 88 06/18/19 05:00 105 28 122/93 (103) 88 06/18/19 04:00 Room Air 06/18/19 04:00 93 26 120/53 (75) 100 06/18/19 04:00 99.3 93 26 120/53 (75) 100 06/18/19 04:00 94 06/18/19 03:00 90 23 119/54 (75) 100 06/18/19 03:00 90 23 119/54 (75) 100 06/18/19 02:15 120/53 06/18/19 02:00 88 25 103/49 (67) 100 06/18/19 02:00 88 25 103/49 (67) 100 06/18/19 01:00 87 24 124/61 (82) 100 06/18/19 01:00 87 24 124/61 (82) 100 06/18/19 00:00 93 25 123/62 (82) 100 06/18/19 00:00 89 06/18/19 00:00 Room Air 06/18/19 00:00 99.6 93 25 123/62 (82) 100 06/17/19 23:00 90 23 120/51 (74) 94 06/17/19 22:00 91 23 112/48 (69) 99 06/17/19 21:00 94 24 134/55 (81) 99 06/17/19 20:00 97 06/17/19 20:00 Room Air 06/17/19 20:00 99.1 93 20 119/52 (74) 99 06/17/19 19:23 100 Room Air 21 06/17/19 19:22 89 25 100 Room Air 21 06/17/19 19:00 97 23 107/46 (66) 100 06/17/19 18:00 97 27 111/45 (67) 100 06/17/19 17:00 96 27 112/56 (74) 100 06/17/19 16:00 99.0 93 26 133/68 (89) 100 06/17/19 16:00 Room Air 06/17/19 16:00 98 06/17/19 15:00 89 27 102/50 (67) 100 06/17/19 14:00 92 18 113/45 (67) 98 06/17/19 13:00 88 16 105/49 (67) 97 06/17/19 12:00 86 06/17/19 12:00 Room Air 06/17/19 12:00 99.6 93 26 106/42 (63) 100 Intake and Output 06/17/19 06/18/19 18:59 06:59 Intake Total 1083.0 ml 825 ml Output Total 0 ml 0 ml Balance 1083.0 ml 825 ml Intake Oral 0 ml 0 ml IV Total 833.0 ml 825 ml Blood Product 250 ml Output Urine Total 0 ml 0 ml Hemodialysis UF 0 ml 0 ml # Bowel Movements 2 Laboratory Tests 06/18/19 05:00: Sodium Level 141, Potassium Level 3.3L, Chloride Level 104, Carbon Dioxide Level 26, Anion Gap 11, Blood Urea Nitrogen 28H, Creatinine 4.9H, Estimat Glomerular Filtration Rate , Glucose Level 89, Calcium Level 9.1, Phosphorus Level 3.8, Magnesium Level 1.9, Total Bilirubin 1.0, Aspartate Amino Transf (AST /SGOT) 18, Alanine Aminotransferase (ALT/SGPT) 9L, Alkaline Phosphatase 85, C- Reactive Protein, Quantitative 22.9H, Total Protein 6.6, Albumin 2.3L, Globulin 4.3, Albumin/Globulin Ratio 0.5L 06/18/19 05:20: White Blood Count 10.9H, Red Blood Count 3.26L, Hemoglobin 9.4L, Hematocrit 30.3L, Mean Corpuscular Volume 93, Mean Corpuscular Hemoglobin 28.9, Mean Corpuscular Hemoglobin Concent 31.1L, Red Cell Distribution Width 17.3H, Platelet Count 173, Mean Platelet Volume 6.1L, Neutrophils (%) (Auto) 84.0H, Lymphocytes (%) (Auto) 8.9L, Monocytes (%) (Auto) 5.3, Eosinophils (%) (Auto) 1.3, Basophils (%) (Auto) 0.5, Erythrocyte Sedimentation Rate 107H Height (Feet): 3 Height (Inches): 0.00 Weight (Pounds): 155 General Appearance: no apparent distress Neck: supple Cardiovascular: normal rate, regular rhythm Respiratory/Chest: lungs clear, normal breath sounds Abdomen: non tender, soft Extremities: other - bilateral above the knee amputation Neurologic: responsive Pam Alcantar MD Jun 18, 2019 11:43
[2019-06-18] MEDS ORDERED: Vancomycin 1gm/D5W 275ml IVPB ONE ×2 (12:00)
--- NOTE | 2019-06-18 14:05 | Surgery Progress Note ---
Surgery Progress Note Subjective Additional Comments low grade fever wbc improved esr elevated exam stable line evaluated Objective Last 24 Hour Vital Signs Date Time Temp Pulse Resp B/P (MAP) Pulse Ox O2 Delivery O2 Flow Rate FiO2 06/18/19 13:00 90 24 136/58 (84) 100 06/18/19 12:00 90 24 130/55 (80) 100 06/18/19 11:00 87 24 120/45 (70) 100 06/18/19 10:00 87 21 99/33 (55) 99 06/18/19 09:00 100.8 88 22 96/31 (52) 99 06/18/19 08:38 100.8 06/18/19 08:00 101.6 104 29 114/45 (68) 100 06/18/19 08:00 101 06/18/19 08:00 Room Air 06/18/19 07:00 104 31 113/64 (80) 100 06/18/19 06:00 102 30 126/49 (74) 98 06/18/19 05:00 105 28 122/93 (103) 88 06/18/19 05:00 105 28 122/93 (103) 88 06/18/19 04:00 Room Air 06/18/19 04:00 93 26 120/53 (75) 100 06/18/19 04:00 99.3 93 26 120/53 (75) 100 06/18/19 04:00 94 06/18/19 03:00 90 23 119/54 (75) 100 06/18/19 03:00 90 23 119/54 (75) 100 06/18/19 02:15 120/53 06/18/19 02:00 88 25 103/49 (67) 100 06/18/19 02:00 88 25 103/49 (67) 100 06/18/19 01:00 87 24 124/61 (82) 100 06/18/19 01:00 87 24 124/61 (82) 100 06/18/19 00:00 93 25 123/62 (82) 100 06/18/19 00:00 89 06/18/19 00:00 Room Air 06/18/19 00:00 99.6 93 25 123/62 (82) 100 06/17/19 23:00 90 23 120/51 (74) 94 06/17/19 22:00 91 23 112/48 (69) 99 06/17/19 21:00 94 24 134/55 (81) 99 06/17/19 20:00 97 06/17/19 20:00 Room Air 06/17/19 20:00 99.1 93 20 119/52 (74) 99 06/17/19 19:23 100 Room Air 21 06/17/19 19:22 89 25 100 Room Air 21 06/17/19 19:00 97 23 107/46 (66) 100 06/17/19 18:00 97 27 111/45 (67) 100 06/17/19 17:00 96 27 112/56 (74) 100 06/17/19 16:00 99.0 93 26 133/68 (89) 100 06/17/19 16:00 Room Air 06/17/19 16:00 98 06/17/19 15:00 89 27 102/50 (67) 100 I&O Intake and Output 06/17/19 06/18/19 18:59 06:59 Intake Total 1083.0 ml 825 ml Output Total 0 ml 0 ml Balance 1083.0 ml 825 ml Intake Oral 0 ml 0 ml IV Total 833.0 ml 825 ml Blood Product 250 ml Output Urine Total 0 ml 0 ml Hemodialysis UF 0 ml 0 ml # Bowel Movements 2 Dressing: dry Wound: clean Cardiovascular: RSR Respiratory: clear Abdomen: soft, present bowel sounds, non-distended Extremities: no cyanosis Laboratory Tests Test 06/18/19 05:00 06/18/19 05:20 Sodium Level 141 MMOL/L (136-145) Potassium Level 3.3 MMOL/L (3.5-5.1) L Chloride Level 104 MMOL/L (98-107) Carbon Dioxide Level 26 MMOL/L (21-32) Anion Gap 11 mmol/L (5-15) Blood Urea Nitrogen 28 mg/dL (7-18) H Creatinine 4.9 MG/DL (0.55-1.30) H Estimat Glomerular Filtration Rate mL/min (>60) Glucose Level 89 MG/DL (74-106) Calcium Level 9.1 MG/DL (8.5-10.1) Phosphorus Level 3.8 MG/DL (2.5-4.9) Magnesium Level 1.9 MG/DL (1.8-2.4) Total Bilirubin 1.0 MG/DL (0.2-1.0) Aspartate Amino Transf (AST/SGOT) 18 U/L (15-37) Alanine Aminotransferase (ALT/SGPT) 9 U/L (12-78) L Alkaline Phosphatase 85 U/L (46-116) C-Reactive Protein, Quantitative 22.9 mg/dL (0.00-0.90) H Total Protein 6.6 G/DL (6.4-8.2) Albumin 2.3 G/DL (3.4-5.0) L Globulin 4.3 g/dL Albumin/Globulin Ratio 0.5 (1.0-2.7) L White Blood Count 10.9 K/UL (4.8-10.8) H Red Blood Count 3.26 M/UL (4.20-5.40) L Hemoglobin 9.4 G/DL (12.0-16.0) L Hematocrit 30.3 % (37.0-47.0) L Mean Corpuscular Volume 93 FL (80-99) Mean Corpuscular Hemoglobin 28.9 PG (27.0-31.0) Mean Corpuscular Hemoglobin Concent 31.1 G/DL (32.0-36.0) L Red Cell Distribution Width 17.3 % (11.6-14.8) H Platelet Count 173 K/UL (150-450) Mean Platelet Volume 6.1 FL (6.5-10.1) L Neutrophils (%) (Auto) 84.0 % (45.0-75.0) H Lymphocytes (%) (Auto) 8.9 % (20.0-45.0) L Monocytes (%) (Auto) 5.3 % (1.0-10.0) Eosinophils (%) (Auto) 1.3 % (0.0-3.0) Basophils (%) (Auto) 0.5 % (0.0-2.0) Erythrocyte Sedimentation Rate 107 MM/HR (0-30) H Plan Problems: (1) Decubitus skin ulcer Assessment & Plan: Pt presented on admission with multiple full thickness pressure injuries R ,L buttocks and L ischium .R sacrum extending down to lower R buttocks erythematous with multiple areas with slough,(+) maceration along edges and periwound. Wound is malodorous. Wound with sloth that easily removed with non excisional debridement during clean up / washing. L sacrum extending into L lower buttocks erythematous ,macerated with scattered areas of yellow slough through out base of wound.Wound is malodorous. Small amt seropurulent exudate noted.Periwound noted to have darker skin tone that is indurated. L ischium darker than is normal skin tone and indurated with scattered open wound exuding small amt serous exudate. Incontinence associated dermatitis noted to perineum and medial aspects of both upper thigh.Skin is erythematous and denuded. Pt presented on admission in grossly unkempt state. Full thickness pressure injury to sacrum extending to R and L ischial regions.(L)18cm x (W)14cm. Sacral pressure injury measures(L)6cm x (W)8cm x (D)0.4cm. Scattered slough at base of wound. Muscle is palpable. Wound is now viable. Full thickness wounds R and L buttocks with scattered slough. Non-blanchable erythema with additional skin erosions periwound. Moisture Intertrigo noted to bilat breasts folds. abd folds and bilat groin areas. Skin is dry dry and flaky to both AKA stumps. Small partial thickness wound noted to L AKA (L)0.4cm x (W)0.4cm. Base of wound is moist and viable. Wound cleaned at bedside and non-excisional debridement performed of sloth. Underlying tissue fairly healthy. The is now a stage IV sacral decubitus ulcer in the central portion right above the coccyx with palpable musculature. Wound is deteriorated since last admission. Tx.Plan: Cleanse wound Sacrum with saline. Apply Therahoney to Sacrum,R and L buttocks. Apply Moisture Barrier Paste periwound. Cover with Optifoam drsg Daily and prn. Apply Moisture Barrier Paste to folds of both breasts,abd folds ,and bilat groin areas with each incontinence care. Apply Cavilon Skin Barrier to L AKA daily. Reposition at least every 2hours or as tolerated. Off-load heels with pillow. APM/TIAGO mattress overlay. (2) Sepsis Assessment & Plan: 84-year-old female with hypotension, tachycardia, leukocytosis, abnormal labs. Currently in intensive care unit Right femoral central venous catheter recently placed - site looks okay for now will monitor On IV antibiotics as per infectious disease Trend labs We will follow with recommendations (3) GI bleed Assessment & Plan: Noted to have hematemesis while in nursing facility. No acute episode of hematemesis at this time stool is noted to be fairly dark Appreciate GI input Willian Machado Jun 18, 2019 14:05
--- NOTE | 2019-06-18 14:31 | Nephrology Progress Note ---
Assessment/Plan Problem List: (1) ESRD (end stage renal disease) on dialysis (2) Septic shock (3) GI bleed (4) Decubitus skin ulcer (5) G tube feedings (6) DM (diabetes mellitus) (7) HTN (hypertension) Assessment ESRD Hematemesis Decubs Anemia Leukocytosis fever / Sepsis / shock h/o Pancreatitis h/o DM & HTN Plan HD done 06/15 next 06/17 transfuse one unit Check Lipase Keep BP above 100 syst per consultants Subjective ROS Limited/Unobtainable: No Constitutional: Reports: malaise, weakness Objective Objective Last 24 Hour Vital Signs Date Time Temp Pulse Resp B/P (MAP) Pulse Ox O2 Delivery O2 Flow Rate FiO2 06/18/19 13:00 90 24 136/58 (84) 100 06/18/19 12:00 90 24 130/55 (80) 100 06/18/19 11:00 87 24 120/45 (70) 100 06/18/19 10:00 87 21 99/33 (55) 99 06/18/19 09:00 100.8 88 22 96/31 (52) 99 06/18/19 08:38 100.8 06/18/19 08:00 101.6 104 29 114/45 (68) 100 06/18/19 08:00 101 06/18/19 08:00 Room Air 06/18/19 07:00 104 31 113/64 (80) 100 06/18/19 06:00 102 30 126/49 (74) 98 06/18/19 05:00 105 28 122/93 (103) 88 06/18/19 05:00 105 28 122/93 (103) 88 06/18/19 04:00 Room Air 06/18/19 04:00 93 26 120/53 (75) 100 06/18/19 04:00 99.3 93 26 120/53 (75) 100 06/18/19 04:00 94 06/18/19 03:00 90 23 119/54 (75) 100 06/18/19 03:00 90 23 119/54 (75) 100 06/18/19 02:15 120/53 06/18/19 02:00 88 25 103/49 (67) 100 06/18/19 02:00 88 25 103/49 (67) 100 06/18/19 01:00 87 24 124/61 (82) 100 06/18/19 01:00 87 24 124/61 (82) 100 06/18/19 00:00 93 25 123/62 (82) 100 06/18/19 00:00 89 06/18/19 00:00 Room Air 06/18/19 00:00 99.6 93 25 123/62 (82) 100 06/17/19 23:00 90 23 120/51 (74) 94 06/17/19 22:00 91 23 112/48 (69) 99 06/17/19 21:00 94 24 134/55 (81) 99 06/17/19 20:00 97 06/17/19 20:00 Room Air 06/17/19 20:00 99.1 93 20 119/52 (74) 99 06/17/19 19:23 100 Room Air 21 06/17/19 19:22 89 25 100 Room Air 21 06/17/19 19:00 97 23 107/46 (66) 100 06/17/19 18:00 97 27 111/45 (67) 100 06/17/19 17:00 96 27 112/56 (74) 100 06/17/19 16:00 99.0 93 26 133/68 (89) 100 06/17/19 16:00 Room Air 06/17/19 16:00 98 06/17/19 15:00 89 27 102/50 (67) 100 Intake and Output 06/17/19 06/18/19 18:59 06:59 Intake Total 1083.0 ml 825 ml Output Total 0 ml 0 ml Balance 1083.0 ml 825 ml Intake Oral 0 ml 0 ml IV Total 833.0 ml 825 ml Blood Product 250 ml Output Urine Total 0 ml 0 ml Hemodialysis UF 0 ml 0 ml # Bowel Movements 2 Laboratory Tests 06/18/19 05:00: Sodium Level 141, Potassium Level 3.3L, Chloride Level 104, Carbon Dioxide Level 26, Anion Gap 11, Blood Urea Nitrogen 28H, Creatinine 4.9H, Estimat Glomerular Filtration Rate , Glucose Level 89, Calcium Level 9.1, Phosphorus Level 3.8, Magnesium Level 1.9, Total Bilirubin 1.0, Aspartate Amino Transf (AST /SGOT) 18, Alanine Aminotransferase (ALT/SGPT) 9L, Alkaline Phosphatase 85, C- Reactive Protein, Quantitative 22.9H, Total Protein 6.6, Albumin 2.3L, Globulin 4.3, Albumin/Globulin Ratio 0.5L 06/18/19 05:20: White Blood Count 10.9H, Red Blood Count 3.26L, Hemoglobin 9.4L, Hematocrit 30.3L, Mean Corpuscular Volume 93, Mean Corpuscular Hemoglobin 28.9, Mean Corpuscular Hemoglobin Concent 31.1L, Red Cell Distribution Width 17.3H, Platelet Count 173, Mean Platelet Volume 6.1L, Neutrophils (%) (Auto) 84.0H, Lymphocytes (%) (Auto) 8.9L, Monocytes (%) (Auto) 5.3, Eosinophils (%) (Auto) 1.3, Basophils (%) (Auto) 0.5, Erythrocyte Sedimentation Rate 107H Height (Feet): 3 Height (Inches): 0.00 Weight (Pounds): 155 General Appearance: no apparent distress Cardiovascular: tachycardia Respiratory/Chest: decreased breath sounds Abdomen: distended Objective no change Matthew Rich MD Jun 18, 2019 14:31
--- NOTE | 2019-06-18 15:03 | General Progress Note ---
Assessment/Plan Status: stable, unchanged Assessment/Plan: Assessment (1) GI bleed ICD Codes: K92.2 - Gastrointestinal hemorrhage, unspecified SNOMED: 71017227 (2) Anemia due to chronic kidney disease ICD Codes: N18.9 - Chronic kidney disease, unspecified; D63.1 - Anemia in chronic kidney disease SNOMED: 664319571 (3) Septic shock ICD Codes: A41.9 - Sepsis, unspecified organism; R65.21 - Severe sepsis with septic shock SNOMED: 28973266 (4) G tube feedings ICD Codes: Z93.1 - Gastrostomy status SNOMED: 088031759, 847386663, 332178029 Status: unchanged . Assessment/Plan Plan for EGD early next week Maintain n.p.o. plus IV fluids Continue Protonix drip Monitor H&H, transfuse as needed to maintain hemoglobin above 7. Respiratory support follow labs Subjective Allergies: Coded Allergies: GABAPENTIN (Unverified Allergy, Unknown, 06/14/19) Subjective Seen in ICU non communicative off feeds d/w Rn more stable Objective Last 24 Hour Vital Signs Date Time Temp Pulse Resp B/P (MAP) Pulse Ox O2 Delivery O2 Flow Rate FiO2 06/18/19 13:00 90 24 136/58 (84) 100 06/18/19 12:00 90 24 130/55 (80) 100 06/18/19 11:00 87 24 120/45 (70) 100 06/18/19 10:00 87 21 99/33 (55) 99 06/18/19 09:00 100.8 88 22 96/31 (52) 99 06/18/19 08:38 100.8 06/18/19 08:00 101.6 104 29 114/45 (68) 100 06/18/19 08:00 101 06/18/19 08:00 Room Air 06/18/19 07:00 104 31 113/64 (80) 100 06/18/19 06:00 102 30 126/49 (74) 98 06/18/19 05:00 105 28 122/93 (103) 88 06/18/19 05:00 105 28 122/93 (103) 88 06/18/19 04:00 Room Air 06/18/19 04:00 93 26 120/53 (75) 100 06/18/19 04:00 99.3 93 26 120/53 (75) 100 06/18/19 04:00 94 06/18/19 03:00 90 23 119/54 (75) 100 06/18/19 03:00 90 23 119/54 (75) 100 06/18/19 02:15 120/53 06/18/19 02:00 88 25 103/49 (67) 100 06/18/19 02:00 88 25 103/49 (67) 100 06/18/19 01:00 87 24 124/61 (82) 100 06/18/19 01:00 87 24 124/61 (82) 100 06/18/19 00:00 93 25 123/62 (82) 100 06/18/19 00:00 89 06/18/19 00:00 Room Air 06/18/19 00:00 99.6 93 25 123/62 (82) 100 06/17/19 23:00 90 23 120/51 (74) 94 06/17/19 22:00 91 23 112/48 (69) 99 06/17/19 21:00 94 24 134/55 (81) 99 06/17/19 20:00 97 06/17/19 20:00 Room Air 06/17/19 20:00 99.1 93 20 119/52 (74) 99 06/17/19 19:23 100 Room Air 21 06/17/19 19:22 89 25 100 Room Air 21 06/17/19 19:00 97 23 107/46 (66) 100 06/17/19 18:00 97 27 111/45 (67) 100 06/17/19 17:00 96 27 112/56 (74) 100 06/17/19 16:00 99.0 93 26 133/68 (89) 100 06/17/19 16:00 Room Air 06/17/19 16:00 98 Intake and Output 06/17/19 06/18/19 18:59 06:59 Intake Total 1083.0 ml 825 ml Output Total 0 ml 0 ml Balance 1083.0 ml 825 ml Intake Oral 0 ml 0 ml IV Total 833.0 ml 825 ml Blood Product 250 ml Output Urine Total 0 ml 0 ml Hemodialysis UF 0 ml 0 ml # Bowel Movements 2 Laboratory Tests 06/18/19 05:00: Sodium Level 141, Potassium Level 3.3L, Chloride Level 104, Carbon Dioxide Level 26, Anion Gap 11, Blood Urea Nitrogen 28H, Creatinine 4.9H, Estimat Glomerular Filtration Rate , Glucose Level 89, Calcium Level 9.1, Phosphorus Level 3.8, Magnesium Level 1.9, Total Bilirubin 1.0, Aspartate Amino Transf (AST /SGOT) 18, Alanine Aminotransferase (ALT/SGPT) 9L, Alkaline Phosphatase 85, C- Reactive Protein, Quantitative 22.9H, Total Protein 6.6, Albumin 2.3L, Globulin 4.3, Albumin/Globulin Ratio 0.5L 06/18/19 05:20: White Blood Count 10.9H, Red Blood Count 3.26L, Hemoglobin 9.4L, Hematocrit 30.3L, Mean Corpuscular Volume 93, Mean Corpuscular Hemoglobin 28.9, Mean Corpuscular Hemoglobin Concent 31.1L, Red Cell Distribution Width 17.3H, Platelet Count 173, Mean Platelet Volume 6.1L, Neutrophils (%) (Auto) 84.0H, Lymphocytes (%) (Auto) 8.9L, Monocytes (%) (Auto) 5.3, Eosinophils (%) (Auto) 1.3, Basophils (%) (Auto) 0.5, Erythrocyte Sedimentation Rate 107H Height (Feet): 3 Height (Inches): 0.00 Weight (Pounds): 155 Objective 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
[2019-06-18] MEDS ORDERED: D5NS 1000ml IV ONE (15:20)
[2019-06-18] MEDS ORDERED: Tubing IV Secondary IV ONE (15:20)
--- NOTE | 2019-06-18 15:36 | Infectious Diseases Prog Note ---
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 sputum for AFB smear x 2 is negative so far await for the last smear , and PCR MTB . keep in air born isolation pending further work up . EXPECT T spot TO be positive due to prior H/ O TB. (2) Decubitus skin ulcer Assessment & Plan: with maceration and necrosis , possibly infected, had surgical eval , already on wide spectrum antibiotics , keep off loading with local wound care as needed as per hospital protocol (3) Sepsis Assessment & Plan: with shock due to staph epidermidis with fever and hypotension , source most likely sacral/buttock pressure wounds . will switch vancomycin to zyvox and and continue meropenem empirically for now pending femoral line removal ( has no other access at this point ) and repeat blood cultures . stool for C diff is negative . echo to rule out vegetations. await repeated blood culture x2 to confirm clearance. (4) GI bleed Assessment & Plan: monitor H/H , transfuse as needed, GI eval for source control (5) ESRD (end stage renal disease) on dialysis Assessment & Plan: continue HD as per renal , antibiotics renally dosed as per pharmacy (6) Anemia Assessment & Plan: due to the above , transfuse blood as needed, GI eval for source control Subjective ROS Limited/Unobtainable: Yes Allergies: Coded Allergies: GABAPENTIN (Unverified Allergy, Unknown, 06/14/19) Subjective she was resting in bed in ICU, quiet, nonverbal, more awake, and alert, no cough or hemoptysis today, spiked fever again today , and was hypotensive Objective Vital Signs Last 24 Hour Vital Signs Date Time Temp Pulse Resp B/P (MAP) Pulse Ox O2 Delivery O2 Flow Rate FiO2 06/18/19 13:00 90 24 136/58 (84) 100 06/18/19 12:00 90 24 130/55 (80) 100 06/18/19 11:00 87 24 120/45 (70) 100 06/18/19 10:00 87 21 99/33 (55) 99 06/18/19 09:00 100.8 88 22 96/31 (52) 99 06/18/19 08:38 100.8 06/18/19 08:00 101.6 104 29 114/45 (68) 100 06/18/19 08:00 101 06/18/19 08:00 Room Air 06/18/19 07:00 104 31 113/64 (80) 100 06/18/19 06:00 102 30 126/49 (74) 98 06/18/19 05:00 105 28 122/93 (103) 88 06/18/19 05:00 105 28 122/93 (103) 88 06/18/19 04:00 Room Air 06/18/19 04:00 93 26 120/53 (75) 100 06/18/19 04:00 99.3 93 26 120/53 (75) 100 06/18/19 04:00 94 06/18/19 03:00 90 23 119/54 (75) 100 06/18/19 03:00 90 23 119/54 (75) 100 06/18/19 02:15 120/53 06/18/19 02:00 88 25 103/49 (67) 100 06/18/19 02:00 88 25 103/49 (67) 100 06/18/19 01:00 87 24 124/61 (82) 100 06/18/19 01:00 87 24 124/61 (82) 100 06/18/19 00:00 93 25 123/62 (82) 100 06/18/19 00:00 89 06/18/19 00:00 Room Air 06/18/19 00:00 99.6 93 25 123/62 (82) 100 06/17/19 23:00 90 23 120/51 (74) 94 06/17/19 22:00 91 23 112/48 (69) 99 06/17/19 21:00 94 24 134/55 (81) 99 06/17/19 20:00 97 06/17/19 20:00 Room Air 06/17/19 20:00 99.1 93 20 119/52 (74) 99 06/17/19 19:23 100 Room Air 21 06/17/19 19:22 89 25 100 Room Air 21 06/17/19 19:00 97 23 107/46 (66) 100 06/17/19 18:00 97 27 111/45 (67) 100 06/17/19 17:00 96 27 112/56 (74) 100 06/17/19 16:00 99.0 93 26 133/68 (89) 100 06/17/19 16:00 Room Air 06/17/19 16:00 98 Height (Feet): 3 Height (Inches): 0.00 Weight (Pounds): 155 General Appearance: WD/WN, no acute distress HEENT: normocephalic, atraumatic, anicteric, mucous membranes moist, PERRL, EOMI, pharynx normal, supple, no JVD Respiratory/Chest: chest wall non-tender, lungs clear, normal breath sounds, no respiratory distress, no accessory muscle use Cardiovascular: normal peripheral pulses, normal rate, regular rhythm, no gallop/murmur, no JVD Abdomen: normal bowel sounds, soft, non tender, no organomegaly, non distended , no mass, no scars Genitourinary: normal external genitalia Extremities: no cyanosis, no clubbing Skin: no rash, no ulcers Neurologic/Psychiatric: alert, unresponsiveness Lymphatic: no neck adenopathy, no groin adenopathy Musculoskeletal: normal muscle bulk, no effusion Microbiology Date/Time Source Procedure Growth Status 06/17/19 05:10 Sputum AFB Specimen Processing Tissue - Final Resulted 06/17/19 05:10 Sputum Acid Fast Bacilli Smear - Final Resulted 06/17/19 05:10 Sputum Acid Fast Bacilli Culture Pending Resulted 06/16/19 03:30 Sputum AFB Specimen Processing Tissue - Final Resulted 06/16/19 03:30 Sputum Acid Fast Bacilli Smear - Final Resulted 06/16/19 03:30 Sputum Acid Fast Bacilli Culture Pending Resulted 06/16/19 04:15 Stool Clostridium difficile Toxin Assay - Final Complete Laboratory Tests Test 06/18/19 05:00 06/18/19 05:20 Sodium Level 141 MMOL/L (136-145) Potassium Level 3.3 MMOL/L (3.5-5.1) L Chloride Level 104 MMOL/L (98-107) Carbon Dioxide Level 26 MMOL/L (21-32) Anion Gap 11 mmol/L (5-15) Blood Urea Nitrogen 28 mg/dL (7-18) H Creatinine 4.9 MG/DL (0.55-1.30) H Estimat Glomerular Filtration Rate mL/min (>60) Glucose Level 89 MG/DL (74-106) Calcium Level 9.1 MG/DL (8.5-10.1) Phosphorus Level 3.8 MG/DL (2.5-4.9) Magnesium Level 1.9 MG/DL (1.8-2.4) Total Bilirubin 1.0 MG/DL (0.2-1.0) Aspartate Amino Transf (AST/SGOT) 18 U/L (15-37) Alanine Aminotransferase (ALT/SGPT) 9 U/L (12-78) L Alkaline Phosphatase 85 U/L (46-116) C-Reactive Protein, Quantitative 22.9 mg/dL (0.00-0.90) H Total Protein 6.6 G/DL (6.4-8.2) Albumin 2.3 G/DL (3.4-5.0) L Globulin 4.3 g/dL Albumin/Globulin Ratio 0.5 (1.0-2.7) L White Blood Count 10.9 K/UL (4.8-10.8) H Red Blood Count 3.26 M/UL (4.20-5.40) L Hemoglobin 9.4 G/DL (12.0-16.0) L Hematocrit 30.3 % (37.0-47.0) L Mean Corpuscular Volume 93 FL (80-99) Mean Corpuscular Hemoglobin 28.9 PG (27.0-31.0) Mean Corpuscular Hemoglobin Concent 31.1 G/DL (32.0-36.0) L Red Cell Distribution Width 17.3 % (11.6-14.8) H Platelet Count 173 K/UL (150-450) Mean Platelet Volume 6.1 FL (6.5-10.1) L Neutrophils (%) (Auto) 84.0 % (45.0-75.0) H Lymphocytes (%) (Auto) 8.9 % (20.0-45.0) L Monocytes (%) (Auto) 5.3 % (1.0-10.0) Eosinophils (%) (Auto) 1.3 % (0.0-3.0) Basophils (%) (Auto) 0.5 % (0.0-2.0) Erythrocyte Sedimentation Rate 107 MM/HR (0-30) H Current Medications Medications (Trade) Dose Ordered Sig/Selene Route PRN Reason Start Time Stop Time Status Last Admin Dose Admin Acetaminophen (Tylenol) 650 mg Q4H PRN GT Fever 06/14/19 17:45 07/14/19 17:44 06/18/19 08:08 Albuterol/ Ipratropium (Albuterol/ Ipratropium) 3 ml Q4H PRN HHN Shortness of Breath 06/14/19 17:45 06/19/19 17:44 Chlorhexidine Gluconate (Ivory-Hex 2%) 1 applic DAILY@2000 TOPIC 06/15/19 20:00 07/15/19 19:59 06/17/19 20:43 Dextrose/Sodium Chloride 1,000 ml @ 50 mls/hr Q20H IV 06/17/19 07:30 07/17/19 07:29 06/18/19 04:12 Hydralazine HCl (Apresoline) 25 mg Q6H PRN ORAL For High Blood Pressure 06/14/19 21:00 07/14/19 20:59 Insulin Aspart (NovoLOG) BEFORE MEALS AND HS SUBQ 06/14/19 21:00 07/14/19 20:59 06/16/19 16:13 Linezolid 300 ml @ 300 mls/hr Q12HR@0300,1500 IVPB 06/18/19 15:00 06/25/19 14:59 Lorazepam (Ativan 2mg/ml 1ml) 2 mg Q4H PRN IV For Anxiety 06/14/19 17:45 06/21/19 17:44 Meropenem 500 mg/ Sodium Chloride 55 ml @ 110 mls/hr Q24H IVPB 06/16/19 15:00 06/21/19 14:59 06/17/19 15:03 Morphine Sulfate (Morphine Sulfate) 4 mg Q4H PRN IVP For Pain 06/14/19 17:45 06/21/19 17:44 Norepinephrine Bitartrate 4 mg/ Dextrose 250 ml @ 0 mls/hr Q24H IV 06/15/19 02:15 07/15/19 02:14 06/16/19 17:46 Ondansetron HCl (Zofran) 4 mg Q6H PRN IVP Nausea & Vomiting 06/14/19 17:45 07/14/19 17:44 Pantoprazole 80 mg/Sodium Chloride 250 ml @ 25 mls/hr Q10H IV 06/14/19 17:00 07/14/19 16:59 06/18/19 11:41 Morteza Castillo M.D. Jun 18, 2019 15:36
[2019-06-18] MEDS: Meropenem 500mg/NS 55ml IVPB SCH ×2 (15:37)
--- NOTE | 2019-06-18 16:30 | Consultation ---
DATE OF CONSULTATION: 06/18/2019 CARDIOLOGY CONSULTATION. CONSULTING PHYSICIAN: Will Osborne M.D. REFERRING PHYSICIAN: Pam Alcantar M.D. REASON FOR CONSULTATION: Hypotension. HISTORY OF PRESENT ILLNESS: The patient is an 84-year-old lady with history of hypertension, diabetes, end-stage renal disease on hemodialysis, hyperlipidemia, peripheral vascular disease status post bilateral above-knee amputation, as well as history of CVA, anemia and gout, resident of [facility] was brought in for vomiting blood. The patient has history of dementia and aphasic and has dysphagia status post G-tube placement. On admission, the patient was admitted to intensive care unit, blood pressure was in the 80s. Cardiology consultation was obtained for further management. REVIEW OF SYSTEMS: Cannot be obtained. PAST MEDICAL HISTORY: As mentioned above. FAMILY HISTORY: Noncontributory. SOCIAL HISTORY: [facility]. Does not smoke or drink alcohol. PAST SURGICAL HISTORY: Include right arm AV graft placement, bilateral [id number] amputation, PEG placement. MEDICATIONS: Per reconciliation sheet. ALLERGIES: She is allergic to gabapentin. PHYSICAL EXAMINATION: VITAL SIGNS: Show blood pressure of 92/31, pulse 88, respirations 22, temperature maximum is 101.6. HEAD AND NECK: Shows no JVD. LUNGS: Coarse rhonchi. CARDIOVASCULAR: Regular S1 and S2 with no gallop. ABDOMEN: Soft. G-tube. EXTREMITIES: Bilateral above-knee amputation. She has a triple-lumen in the right femoral area and dialysis access in the right arm. LABORATORY AND DIAGNOSTIC DATA: Her EKG showed sinus tachycardia rate of 112 with occasional PVCs. Labs show white count initially was 24.2 today is 10.9, hemoglobin is 9.4, hematocrit 30, and platelet count is 173. Sodium is 141, potassium 3.3, BUN of 28, creatinine 4.9. ASSESSMENT AND PLAN: 1. Hypotension. Likely septic shock. Blood pressure is improved. The patient currently off Levophed. The patient is on IV antibiotic. Her EKG showed no acute ischemic changes. We will get an echocardiogram to evaluate for ejection fraction and wall motion abnormality. 2. End-stage renal disease, on hemodialysis. 3. Gastrointestinal bleed. 4. Decubitus ulcer. 5. Hypertension, currently hypotensive off blood pressure medications. 6. Diabetes. 7. Dysphagia, status post G-tube. 8. Hematemesis. Further evaluation by GI. 9. Anemia. Thank you very much, Dr. Alcantar, for allowing me to participate in the care of this patient. Please do not hesitate to contact me for any questions regarding my evaluation. Sincerely, Will Osborne M.D. DR: Aletha JOB#: [id number] CC:
[2019-06-18] MEDS: Dyna-Hex 2% Top Sol 2oz TOPIC SCH (20:15)
[2019-06-18] MEDS ORDERED: Dextrose 50% 25ml Syringe IV PRN (20:15)
[2019-06-19] VITALS (16 sets, daily range): BP systolic 109–159; BP diastolic 46–90
[2019-06-19] MEDS: D5NS 1,000 ML IV SCH (00:35)
[2019-06-19 05:14] LABS: HEMOGLOBIN 8.5 G/DL (12.0-16.0); MEAN CORPUSCULAR VOLUME 92 FL (80-99); PLATELET COUNT 162 K/UL (150-450); RED BLOOD COUNT 2.93 M/UL (4.20-5.40); RED CELL DISTRIBUTION WIDTH 17.3 % (11.6-14.8); WHITE BLOOD COUNT 10.6 K/UL (4.8-10.8)
[2019-06-19 05:35] LABS: ALANINE AMINOTRANSFERASE < 6 U/L (12-78); ALBUMIN/GLOBULIN RATIO 0.5 (1.0-2.7); ALKALINE PHOSPHATASE 81 U/L (46-116); ANION GAP 10 mmol/L (5-15); ASPARTATE AMINO TRANSFERASE 18 U/L (15-37); BILIRUBIN,TOTAL 0.8 MG/DL (0.2-1.0); BLOOD UREA NITROGEN 33 mg/dL (7-18); CALCIUM 8.3 MG/DL (8.5-10.1); CARBON DIOXIDE 23 MMOL/L (21-32); CHLORIDE 105 MMOL/L (98-107); CREATININE 5.7 MG/DL (0.55-1.30); PHOSPHORUS 4.5 MG/DL (2.5-4.9); POTASSIUM 3.7 MMOL/L (3.5-5.1); SODIUM 138 MMOL/L (136-145)
[2019-06-19] MEDS: Pantoprazole 80 MG in NS 250 ML IV SCH (06:01)
[2019-06-19] MEDS: NovoLOG Insulin Flexpen SUBQ SCH ×4 (06:30→21:00)
[2019-06-19] MEDS: Acetaminophen 650mg/20.3ml GT PRN (08:24)
--- NOTE | 2019-06-19 09:09 | General Progress Note ---
Assessment/Plan Status: stable, unchanged Assessment/Plan: 1. Septic Shock - improved. off pressor. Her blood pressure has improved. Cont IV Abx and f/u cultures. Will transfer to telemetry after EGD today. 2. ESRD on HD - on HD, last HD on wednesday. 3. Sacral pressure ulcer - may need debridement. surgery is following. 4. Upper GI bleed - H/H currently stable. s/p One unit of PRBC. GI is following. EGD for today. 5. Sepsis - cont IV Abx. ID following the patient. blood cultures showed staph Epidermatous. 6. HLD - cont home meds. 7. Gout - cont Allopurinol 8. H/O PVD 9. H/O DVT 10. DM II - cont SSI. 11. HTN - off meds due to septic shock. 12. 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 Subjective Date patient seen: Jun 19, 2019 Time patient seen: 08:50 Constitutional: Reports: fever HEENT: Reports: no symptoms Cardiovascular: Reports: no symptoms Respiratory: Reports: no symptoms Gastrointestinal/Abdominal: Reports: other - upper GI bleed Genitourinary: Reports: no symptoms Neurologic/Psychiatric: Reports: no symptoms Endocrine: Reports: no symptoms Hematologic/Lymphatic: Reports: anemia Allergies: Coded Allergies: GABAPENTIN (Unverified Allergy, Unknown, 06/14/19) Subjective Patient was seen in ICU. Her Blood Pressure has improved. she has low grade fever. EGD for today. No nausea or vomiting. she is ESRD on HD. Objective Last 24 Hour Vital Signs Date Time Temp Pulse Resp B/P (MAP) Pulse Ox O2 Delivery O2 Flow Rate FiO2 06/19/19 08:00 93 06/19/19 08:00 93 23 132/59 (83) 100 06/19/19 08:00 Room Air 06/19/19 07:00 99.8 92 24 132/52 (78) 100 06/19/19 05:00 99 23 136/59 (84) 100 06/19/19 04:00 84 06/19/19 04:00 99.9 100 24 147/58 (87) 100 06/19/19 04:00 Room Air 06/19/19 03:16 103 26 159/51 (87) 96 06/19/19 03:00 105 32 129/71 (90) 86 06/19/19 02:00 98 25 115/63 (80) 100 06/19/19 01:25 145/64 06/19/19 01:00 94 24 145/64 (91) 100 06/19/19 00:00 Room Air 06/19/19 00:00 99.8 92 20 130/90 (103) 98 06/19/19 00:00 96 06/18/19 23:00 97 23 128/53 (78) 99 06/18/19 22:00 98 22 120/71 (87) 100 06/18/19 21:00 98 25 113/60 (77) 100 06/18/19 20:14 99 Nasal Cannula 2.0 28 06/18/19 20:04 98 21 99 Nasal Cannula 2.0 28 06/18/19 20:00 100.3 103 26 120/63 (82) 99 06/18/19 20:00 Room Air 06/18/19 20:00 97 06/18/19 19:00 109 30 146/61 (89) 99 06/18/19 18:00 105 32 131/71 (91) 86 06/18/19 17:00 98 26 138/76 (96) 100 06/18/19 16:00 92 06/18/19 16:00 97 32 129/50 (76) 96 06/18/19 16:00 Room Air 06/18/19 15:00 99.3 94 27 115/67 (83) 94 06/18/19 14:00 92 24 133/94 (107) 100 06/18/19 13:00 90 24 136/58 (84) 100 06/18/19 12:00 88 06/18/19 12:00 90 24 130/55 (80) 100 06/18/19 12:00 Room Air 06/18/19 11:00 87 24 120/45 (70) 100 06/18/19 10:00 87 21 99/33 (55) 99 Intake and Output 06/18/19 06/19/19 19:00 07:00 Intake Total 485 ml 1125 ml Balance 485 ml 1125 ml Intake Oral 0 ml 0 ml IV Total 455 ml 1125 ml Other 30 ml # Bowel Movements 1 Laboratory Tests 06/18/19 18:15: Lactic Acid Level 2.30H 06/18/19 23:30: Lactic Acid Level 0.80 7/29/19 03:50: White Blood Count 10.6, Red Blood Count 2.93L, Hemoglobin 8.5L, Hematocrit 27.0L , Mean Corpuscular Volume 92, Mean Corpuscular Hemoglobin 29.1, Mean Corpuscular Hemoglobin Concent 31.5L, Red Cell Distribution Width 17.3H, Platelet Count 162, Mean Platelet Volume 6.0L, Neutrophils (%) (Auto) , Lymphocytes (%) (Auto) , Monocytes (%) (Auto) , Eosinophils (%) (Auto) , Basophils (%) (Auto) , Erythrocyte Sedimentation Rate 116H, Sodium Level 138, Potassium Level 3.7, Chloride Level 105, Carbon Dioxide Level 23, Anion Gap 10, Blood Urea Nitrogen 33H, Creatinine 5.7H, Estimat Glomerular Filtration Rate , Glucose Level 139H, Calcium Level 8.3L, Phosphorus Level 4.5, Magnesium Level 1.6L, Total Bilirubin 0.8, Aspartate Amino Transf (AST/SGOT) 18, Alanine Aminotransferase (ALT/SGPT) < 6L, Alkaline Phosphatase 81, C-Reactive Protein, Quantitative 24.8H, Total Protein 5.9L, Albumin 2.0L, Globulin 3.9, Albumin/ Globulin Ratio 0.5L Height (Feet): 3 Height (Inches): 0.00 Weight (Pounds): 156 General Appearance: no apparent distress EENT: normal ENT inspection Neck: non-tender, supple Cardiovascular: regular rhythm Respiratory/Chest: lungs clear, normal breath sounds Abdomen: normal bowel sounds, non tender, soft Extremities: other - bilateral Above the Knee amputation Neurologic: responsive Skin: warm/dry Pam Alcantar MD Jun 19, 2019 09:09
--- NOTE | 2019-06-19 09:48 | Pulmonolgy Critical Care Note ---
Critical Care - Asmt/Plan Problems: (1) Septic shock (2) GI bleed (3) ESRD (end stage renal disease) on dialysis (4) Decubitus skin ulcer (5) HTN (hypertension) (6) DM (diabetes mellitus) (7) G tube feedings (8) Colonization with VRE (vancomycin-resistant enterococcus) Assessment/Plan: off Levophed of 2 ugm there is no need for respiratory isolation Respiratory: adjust tidal volume, adjust FIO2, CXR Cardiac: continue pressors, continue to monitor HR/BP Renal: F/U I&O, keep IV fluid, check electrolytes Infectious Disease: check cultures, continue antibiotics Gastrointestinal: continue feedings/current rate Endocrine: monitor blood sugar, check HgA1C Hematologic: monitor H/H, transfuse if hgb<8.5 Neurologic: PRN Morphine, keep patient comfortable Affect: PRN ativan Prophylaxis: Protonix Notes Reviewed: cardio, renal Discussed with: nurses, consultants, 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 - Objective Last 24 Hour Vital Signs Date Time Temp Pulse Resp B/P (MAP) Pulse Ox O2 Delivery O2 Flow Rate FiO2 06/19/19 09:00 88 20 118/46 (70) 100 06/19/19 08:54 99.8 06/19/19 08:00 93 06/19/19 08:00 93 23 132/59 (83) 100 06/19/19 08:00 Room Air 06/19/19 07:00 99.8 92 24 132/52 (78) 100 06/19/19 05:00 99 23 136/59 (84) 100 06/19/19 04:00 84 06/19/19 04:00 99.9 100 24 147/58 (87) 100 06/19/19 04:00 Room Air 06/19/19 03:16 103 26 159/51 (87) 96 06/19/19 03:00 105 32 129/71 (90) 86 06/19/19 02:00 98 25 115/63 (80) 100 06/19/19 01:25 145/64 06/19/19 01:00 94 24 145/64 (91) 100 06/19/19 00:00 Room Air 06/19/19 00:00 99.8 92 20 130/90 (103) 98 06/19/19 00:00 96 06/18/19 23:00 97 23 128/53 (78) 99 06/18/19 22:00 98 22 120/71 (87) 100 06/18/19 21:00 98 25 113/60 (77) 100 06/18/19 20:14 99 Nasal Cannula 2.0 28 06/18/19 20:04 98 21 99 Nasal Cannula 2.0 28 06/18/19 20:00 100.3 103 26 120/63 (82) 99 06/18/19 20:00 Room Air 06/18/19 20:00 97 06/18/19 19:00 109 30 146/61 (89) 99 06/18/19 18:00 105 32 131/71 (91) 86 06/18/19 17:00 98 26 138/76 (96) 100 06/18/19 16:00 92 06/18/19 16:00 97 32 129/50 (76) 96 06/18/19 16:00 Room Air 06/18/19 15:00 99.3 94 27 115/67 (83) 94 06/18/19 14:00 92 24 133/94 (107) 100 06/18/19 13:00 90 24 136/58 (84) 100 06/18/19 12:00 88 06/18/19 12:00 90 24 130/55 (80) 100 06/18/19 12:00 Room Air 06/18/19 11:00 87 24 120/45 (70) 100 06/18/19 10:00 87 21 99/33 (55) 99 Status: awake Condition: critical HEENT: atraumatic Neck: full ROM Lungs: clear Heart: HR/BP stable, regular Abdomen: soft, active bowel sounds Extremities: no C/C/E Decubiti: stage Micro: Microbiology Date/Time Source Procedure Growth Status 06/17/19 22:00 Blood Blood Culture - Preliminary NO GROWTH AFTER 24 HOURS Resulted 06/17/19 21:45 Blood Blood Culture - Preliminary NO GROWTH AFTER 24 HOURS Resulted 06/17/19 05:10 Sputum AFB Specimen Processing Tissue - Final Resulted 06/17/19 05:10 Sputum Acid Fast Bacilli Smear - Final Resulted 06/17/19 05:10 Sputum Acid Fast Bacilli Culture Pending Resulted Accucheck: 89 Critical Care - Subjective ROS Limited/Unobtainable: No Condition: critical EKG Rhythm: Sinus Rhythm FI02: 28 Sputum Amount: None I&O: Intake and Output 06/18/19 06/19/19 19:00 07:00 Intake Total 485 ml 1125 ml Balance 485 ml 1125 ml Intake Oral 0 ml 0 ml IV Total 455 ml 1125 ml Other 30 ml # Bowel Movements 1 Labs: Laboratory Tests Test 06/18/19 18:15 06/18/19 23:30 06/19/19 03:50 Lactic Acid Level 2.30 mmol/L (0.4-2.0) H 0.80 mmol/L (0.66-2.22) White Blood Count 10.6 K/UL (4.8-10.8) Red Blood Count 2.93 M/UL (4.20-5.40) L Hemoglobin 8.5 G/DL (12.0-16.0) L Hematocrit 27.0 % (37.0-47.0) L Mean Corpuscular Volume 92 FL (80-99) Mean Corpuscular Hemoglobin 29.1 PG (27.0-31.0) Mean Corpuscular Hemoglobin Concent 31.5 G/DL (32.0-36.0) L Red Cell Distribution Width 17.3 % (11.6-14.8) H Platelet Count 162 K/UL (150-450) Mean Platelet Volume 6.0 FL (6.5-10.1) L Neutrophils (%) (Auto) % (45.0-75.0) Lymphocytes (%) (Auto) % (20.0-45.0) Monocytes (%) (Auto) % (1.0-10.0) Eosinophils (%) (Auto) % (0.0-3.0) Basophils (%) (Auto) % (0.0-2.0) Erythrocyte Sedimentation Rate 116 MM/HR (0-30) H Sodium Level 138 MMOL/L (136-145) Potassium Level 3.7 MMOL/L (3.5-5.1) Chloride Level 105 MMOL/L (98-107) Carbon Dioxide Level 23 MMOL/L (21-32) Anion Gap 10 mmol/L (5-15) Blood Urea Nitrogen 33 mg/dL (7-18) H Creatinine 5.7 MG/DL (0.55-1.30) H Estimat Glomerular Filtration Rate mL/min (>60) Glucose Level 139 MG/DL (74-106) H Calcium Level 8.3 MG/DL (8.5-10.1) L Phosphorus Level 4.5 MG/DL (2.5-4.9) Magnesium Level 1.6 MG/DL (1.8-2.4) L Total Bilirubin 0.8 MG/DL (0.2-1.0) Aspartate Amino Transf (AST/SGOT) 18 U/L (15-37) Alanine Aminotransferase (ALT/SGPT) < 6 U/L (12-78) L Alkaline Phosphatase 81 U/L (46-116) C-Reactive Protein, Quantitative 24.8 mg/dL (0.00-0.90) H Total Protein 5.9 G/DL (6.4-8.2) L Albumin 2.0 G/DL (3.4-5.0) L Globulin 3.9 g/dL Albumin/Globulin Ratio 0.5 (1.0-2.7) L Rosemary Lui MD Jun 19, 2019 09:48
[2019-06-19] MEDS ORDERED: Propofol 200mg/20ml IV ONE (10:00)
[2019-06-19] MEDS ORDERED: Lidocaine 1% MPF 10mg/ml 5ml ONE (10:00)
[2019-06-19] MEDS ORDERED: NS 500ML IVPB ONE (10:18)
--- NOTE | 2019-06-19 10:23 | Pre-Procedure Note/Attestation ---
Pre-Procedure Note/Attestation Complete Prior to Procedure Planned Procedure: not applicable Procedure Narrative: egd Indications for Procedure Pre-Operative Diagnosis: gib Attestation I attest that I discussed the nature of the procedure; its benefits; risks and complications; and alternatives (and the risks and benefits of such alternatives ), prior to the procedure, with the patient (or the patient's legal high school admissions representative). I attest that, if there was a reasonable possibility of needing a blood transfusion, the patient (or the patient's legal high school admissions representative) was given the [facility] standardized written summary, pursuant to the Marlon Marcos Blood Safety Act ([place] Health and Safety Code # 1645, as amended). I attest that I re-evaluated the patient just prior to the surgery and that there has been no change in the patient's H&P, except as documented below: Ezequiel Perales MD Jun 19, 2019 10:23
--- NOTE | 2019-06-19 10:30 | Endoscopy Procedure Note ---
Endoscopy Procedure Note General Indication for Procedure: gib Procedures Performed: EGD Operative Findings/Diagnosis: DU Specimen: yes Pt Tolerated Procedure Well: Yes Estimated Blood Loss: none Anesthesia Anesthesiologist: cheng Anesthesia: MAC Inserted Devices Implant(s) used?: No GI Core Measures 50 yrs or older w/o bx or poly: Not Applicable 10yrs. F/U recommended: Not Applicable Ezequiel Perales MD Jun 19, 2019 10:30
--- NOTE | 2019-06-19 10:30 | Nephrology Progress Note ---
Assessment/Plan Problem List: (1) ESRD (end stage renal disease) on dialysis (2) Septic shock (3) GI bleed (4) Decubitus skin ulcer (5) G tube feedings (6) DM (diabetes mellitus) (7) HTN (hypertension) Assessment ESRD Hematemesis Decubs Anemia Leukocytosis fever / Sepsis / shock h/o Pancreatitis h/o DM & HTN Plan HD next 06/20 transfused one unit Check Lipase Keep BP above 100 syst per consultants Subjective ROS Limited/Unobtainable: No Constitutional: Reports: malaise Objective Objective Last 24 Hour Vital Signs Date Time Temp Pulse Resp B/P (MAP) Pulse Ox O2 Delivery O2 Flow Rate FiO2 06/19/19 09:00 88 20 118/46 (70) 100 06/19/19 08:54 99.8 06/19/19 08:00 93 06/19/19 08:00 93 23 132/59 (83) 100 06/19/19 08:00 Room Air 06/19/19 07:00 99.8 92 24 132/52 (78) 100 06/19/19 05:00 99 23 136/59 (84) 100 06/19/19 04:00 84 06/19/19 04:00 99.9 100 24 147/58 (87) 100 06/19/19 04:00 Room Air 06/19/19 03:16 103 26 159/51 (87) 96 06/19/19 03:00 105 32 129/71 (90) 86 06/19/19 02:00 98 25 115/63 (80) 100 06/19/19 01:25 145/64 06/19/19 01:00 94 24 145/64 (91) 100 06/19/19 00:00 Room Air 06/19/19 00:00 99.8 92 20 130/90 (103) 98 06/19/19 00:00 96 06/18/19 23:00 97 23 128/53 (78) 99 06/18/19 22:00 98 22 120/71 (87) 100 06/18/19 21:00 98 25 113/60 (77) 100 06/18/19 20:14 99 Nasal Cannula 2.0 28 06/18/19 20:04 98 21 99 Nasal Cannula 2.0 28 06/18/19 20:00 100.3 103 26 120/63 (82) 99 7/28/19 20:00 Room Air 06/18/19 20:00 97 06/18/19 19:00 109 30 146/61 (89) 99 06/18/19 18:00 105 32 131/71 (91) 86 06/18/19 17:00 98 26 138/76 (96) 100 06/18/19 16:00 92 06/18/19 16:00 97 32 129/50 (76) 96 06/18/19 16:00 Room Air 06/18/19 15:00 99.3 94 27 115/67 (83) 94 06/18/19 14:00 92 24 133/94 (107) 100 06/18/19 13:00 90 24 136/58 (84) 100 06/18/19 12:00 88 06/18/19 12:00 90 24 130/55 (80) 100 06/18/19 12:00 Room Air 06/18/19 11:00 87 24 120/45 (70) 100 Intake and Output 06/18/19 06/19/19 19:00 07:00 Intake Total 485 ml 1125 ml Balance 485 ml 1125 ml Intake Oral 0 ml 0 ml IV Total 455 ml 1125 ml Other 30 ml # Bowel Movements 1 Laboratory Tests 06/18/19 18:15: Lactic Acid Level 2.30H 06/18/19 23:30: Lactic Acid Level 0.80 06/19/19 03:50: White Blood Count 10.6, Red Blood Count 2.93L, Hemoglobin 8.5L, Hematocrit 27.0L , Mean Corpuscular Volume 92, Mean Corpuscular Hemoglobin 29.1, Mean Corpuscular Hemoglobin Concent 31.5L, Red Cell Distribution Width 17.3H, Platelet Count 162, Mean Platelet Volume 6.0L, Neutrophils (%) (Auto) , Lymphocytes (%) (Auto) , Monocytes (%) (Auto) , Eosinophils (%) (Auto) , Basophils (%) (Auto) , Erythrocyte Sedimentation Rate 116H, Sodium Level 138, Potassium Level 3.7, Chloride Level 105, Carbon Dioxide Level 23, Anion Gap 10, Blood Urea Nitrogen 33H, Creatinine 5.7H, Estimat Glomerular Filtration Rate , Glucose Level 139H, Calcium Level 8.3L, Phosphorus Level 4.5, Magnesium Level 1.6L, Total Bilirubin 0.8, Aspartate Amino Transf (AST/SGOT) 18, Alanine Aminotransferase (ALT/SGPT) < 6L, Alkaline Phosphatase 81, C-Reactive Protein, Quantitative 24.8H, Total Protein 5.9L, Albumin 2.0L, Globulin 3.9, Albumin/ Globulin Ratio 0.5L Height (Feet): 3 Height (Inches): 0.00 Weight (Pounds): 156 General Appearance: no apparent distress Cardiovascular: normal rate Respiratory/Chest: lungs clear Abdomen: soft Objective no change Matthew Rich MD Jun 19, 2019 10:30
[2019-06-19] MEDS ORDERED: Pantoprazole Inj IVP SCH (12:00)
--- NOTE | 2019-06-19 12:29 | Anethesia Preoperative Eval ---
Anesthesia Pre-op PMH/ROS General Date of Evaluation: Jun 19, 2019 Time of Evaluation: 10:10 Anesthesiologist: cheng ASA Score: ASA 4 Mallampati Score Class I : Soft palate, uvula, fauces, pillars visible Class II: Soft palate, uvula, fauces visible Class III: Soft palate, base of uvula visible Class IV: Only hard plate visible Mallampati Classification: Class II Surgeon: rich Diagnosis: gi bleed Surgical Procedure: egd Anesthesia History: none Social History: smoking - nonsmoker Family History: no anesthesia problems Allergies: Coded Allergies: GABAPENTIN (Unverified Allergy, Unknown, 06/14/19) Medications: see eMAR Patient NPO?: Yes Past Medical History Cardiovascular: Reports: HTN Gastrointestinal/Genitourinary: Reports: ESRD, other - pancreatitis, Hematology/Immune: Reports: other - septic shock Musculoskeletal/Integumentary: Reports: other - bilateral lower extremity amputations Anesthesia Pre-op Phys. Exam Physician Exam Last Vital Signs Date Time Temp Pulse Resp B/P (MAP) Pulse Ox O2 Delivery O2 Flow Rate FiO2 06/19/19 12:00 Room Air 06/19/19 12:00 98.8 82 21 128/59 (82) 100 06/18/19 20:14 2.0 28 Constitutional: NAD Neurologic: other - unable to cooperate Cardiovascular: RRR Respiratory: CTA Gastrointestinal: S/NT/ND Airway Exam Mallampati Score: Class II MO: limited Neck: short TMD: 2fb ROM: limited Teeth: missing Anesthesia Pre-op A/P Labs Hematology Test 06/19/19 03:50 White Blood Count 10.6 K/UL (4.8-10.8) Red Blood Count 2.93 M/UL (4.20-5.40) L Hemoglobin 8.5 G/DL (12.0-16.0) L Hematocrit 27.0 % (37.0-47.0) L Mean Corpuscular Volume 92 FL (80-99) Mean Corpuscular Hemoglobin 29.1 PG (27.0-31.0) Mean Corpuscular Hemoglobin Concent 31.5 G/DL (32.0-36.0) L Red Cell Distribution Width 17.3 % (11.6-14.8) H Platelet Count 162 K/UL (150-450) Mean Platelet Volume 6.0 FL (6.5-10.1) L Neutrophils (%) (Auto) % (45.0-75.0) Lymphocytes (%) (Auto) % (20.0-45.0) Monocytes (%) (Auto) % (1.0-10.0) Eosinophils (%) (Auto) % (0.0-3.0) Basophils (%) (Auto) % (0.0-2.0) Erythrocyte Sedimentation Rate 116 MM/HR (0-30) H Chemistry Test 06/18/19 18:15 06/18/19 23:30 06/19/19 03:50 Lactic Acid Level 2.30 mmol/L (0.4-2.0) H 0.80 mmol/L (0.66-2.22) Sodium Level 138 MMOL/L (136-145) Potassium Level 3.7 MMOL/L (3.5-5.1) Chloride Level 105 MMOL/L (98-107) Carbon Dioxide Level 23 MMOL/L (21-32) Anion Gap 10 mmol/L (5-15) Blood Urea Nitrogen 33 mg/dL (7-18) H Creatinine 5.7 MG/DL (0.55-1.30) H Estimat Glomerular Filtration Rate mL/min (>60) Glucose Level 139 MG/DL (74-106) H Calcium Level 8.3 MG/DL (8.5-10.1) L Phosphorus Level 4.5 MG/DL (2.5-4.9) Magnesium Level 1.6 MG/DL (1.8-2.4) L Total Bilirubin 0.8 MG/DL (0.2-1.0) Aspartate Amino Transf (AST/SGOT) 18 U/L (15-37) Alanine Aminotransferase (ALT/SGPT) < 6 U/L (12-78) L Alkaline Phosphatase 81 U/L (46-116) C-Reactive Protein, Quantitative 24.8 mg/dL (0.00-0.90) H Total Protein 5.9 G/DL (6.4-8.2) L Albumin 2.0 G/DL (3.4-5.0) L Globulin 3.9 g/dL Albumin/Globulin Ratio 0.5 (1.0-2.7) L Risk Assessment & Plan Assessment: [email or web address] Plan: mac Status Change Before Surgery: No Pre-Antibiotics Drug: Edith Pratt MD Jun 19, 2019 12:29
[2019-06-19] MEDS ORDERED: Atropine Inj 1mg/10ml Syr IV PRN (12:30)
[2019-06-19] MEDS ORDERED: Midazolam 2mg/2ml Inj IVP PRN (12:30)
[2019-06-19] MEDS ORDERED: DiphenhydrAMINE 50mg/ml Inj IVP PRN (12:30)
--- NOTE | 2019-06-19 12:35 | Immediate Post-Op Evaluation ---
Immediate Post-Op Evalulation Immediate Post-Op Evalulation Procedure: egd Date of Evaluation: Jun 19, 2019 Time of Evaluation: 10:52 IV Fluids: 125ml 0.9ns Blood Products: none Estimated Blood Loss: negligible Blood Pressure Systolic: 98 Blood Pressure Diastolic: 53 Pulse Rate: 80 Respiratory Rate: 18 O2 Sat by Pulse Oximetry: 100 Temperature (Fahrenheit): 98.8 Pain Score (1-10): 0 Nausea: No Vomiting: No Complications none Patient Status: awake, reacts, patent Hydration Status: adequate Drug: Edith Pratt MD Jun 19, 2019 12:35
--- NOTE | 2019-06-19 12:37 | 48 Hour Post Anesthesia Eval ---
Post Anesthesia Evaluation Procedure: egd Date of Evaluation: Jun 19, 2019 Time of Evaluation: 10:54 Blood Pressure Systolic: 117 0: 64 Pulse Rate: 79 Respiratory Rate: 18 Temperature (Fahrenheit): 98.8 O2 Sat by Pulse Oximetry: 100 Airway: patent Nausea: No Vomiting: No Pain Intensity: 0 Hydration Status: adequate Cardiopulmonary Status: stable Mental Status/LOC: patient returned to baseline Post-Anesthesia Complications: none Follow-up care needed: N/A Edith Lee MD Jun 19, 2019 12:37
--- NOTE | 2019-06-19 12:58 | Surgery Progress Note ---
Surgery Progress Note Subjective Additional Comments Patient had an EGD. Findings per GI. Leukocytosis resolved. Elevated ESR and CRP. No true fevers. Still in ICU off pressors electrolyte being replaced Objective Last 24 Hour Vital Signs Date Time Temp Pulse Resp B/P (MAP) Pulse Ox O2 Delivery O2 Flow Rate FiO2 06/19/19 12:37 79 18 100 06/19/19 12:35 80 18 100 06/19/19 12:00 Room Air 06/19/19 12:00 98.8 82 21 128/59 (82) 100 06/19/19 12:00 83 06/19/19 11:00 79 21 117/64 (81) 100 06/19/19 10:00 86 20 125/59 (81) 100 06/19/19 09:00 88 20 118/46 (70) 100 06/19/19 08:54 99.8 06/19/19 08:00 93 06/19/19 08:00 93 23 132/59 (83) 100 06/19/19 08:00 Room Air 06/19/19 07:00 99.8 92 24 132/52 (78) 100 06/19/19 05:00 99 23 136/59 (84) 100 06/19/19 04:00 84 06/19/19 04:00 99.9 100 24 147/58 (87) 100 06/19/19 04:00 Room Air 06/19/19 03:16 103 26 159/51 (87) 96 06/19/19 03:00 105 32 129/71 (90) 86 06/19/19 02:00 98 25 115/63 (80) 100 06/19/19 01:25 145/64 06/19/19 01:00 94 24 145/64 (91) 100 06/19/19 00:00 Room Air 06/19/19 00:00 99.8 92 20 130/90 (103) 98 06/19/19 00:00 96 06/18/19 23:00 97 23 128/53 (78) 99 06/18/19 22:00 98 22 120/71 (87) 100 06/18/19 21:00 98 25 113/60 (77) 100 06/18/19 20:14 99 Nasal Cannula 2.0 28 06/18/19 20:04 98 21 99 Nasal Cannula 2.0 28 06/18/19 20:00 100.3 103 26 120/63 (82) 99 06/18/19 20:00 Room Air 06/18/19 20:00 97 06/18/19 19:00 109 30 146/61 (89) 99 06/18/19 18:00 105 32 131/71 (91) 86 06/18/19 17:00 98 26 138/76 (96) 100 06/18/19 16:00 92 06/18/19 16:00 97 32 129/50 (76) 96 06/18/19 16:00 Room Air 06/18/19 15:00 99.3 94 27 115/67 (83) 94 06/18/19 14:00 92 24 133/94 (107) 100 06/18/19 13:00 90 24 136/58 (84) 100 I&O Intake and Output 06/18/19 06/19/19 19:00 07:00 Intake Total 485 ml 1125 ml Balance 485 ml 1125 ml Intake Oral 0 ml 0 ml IV Total 455 ml 1125 ml Other 30 ml # Bowel Movements 1 Dressing: saturated Wound: clean Cardiovascular: RSR Respiratory: clear Abdomen: soft, non-tender, present bowel sounds, other Extremities: other Laboratory Tests Test 06/18/19 18:15 06/18/19 23:30 06/19/19 03:50 Lactic Acid Level 2.30 mmol/L (0.4-2.0) H 0.80 mmol/L (0.66-2.22) White Blood Count 10.6 K/UL (4.8-10.8) Red Blood Count 2.93 M/UL (4.20-5.40) L Hemoglobin 8.5 G/DL (12.0-16.0) L Hematocrit 27.0 % (37.0-47.0) L Mean Corpuscular Volume 92 FL (80-99) Mean Corpuscular Hemoglobin 29.1 PG (27.0-31.0) Mean Corpuscular Hemoglobin Concent 31.5 G/DL (32.0-36.0) L Red Cell Distribution Width 17.3 % (11.6-14.8) H Platelet Count 162 K/UL (150-450) Mean Platelet Volume 6.0 FL (6.5-10.1) L Neutrophils (%) (Auto) % (45.0-75.0) Lymphocytes (%) (Auto) % (20.0-45.0) Monocytes (%) (Auto) % (1.0-10.0) Eosinophils (%) (Auto) % (0.0-3.0) Basophils (%) (Auto) % (0.0-2.0) Erythrocyte Sedimentation Rate 116 MM/HR (0-30) H Sodium Level 138 MMOL/L (136-145) Potassium Level 3.7 MMOL/L (3.5-5.1) Chloride Level 105 MMOL/L (98-107) Carbon Dioxide Level 23 MMOL/L (21-32) Anion Gap 10 mmol/L (5-15) Blood Urea Nitrogen 33 mg/dL (7-18) H Creatinine 5.7 MG/DL (0.55-1.30) H Estimat Glomerular Filtration Rate mL/min (>60) Glucose Level 139 MG/DL (74-106) H Calcium Level 8.3 MG/DL (8.5-10.1) L Phosphorus Level 4.5 MG/DL (2.5-4.9) Magnesium Level 1.6 MG/DL (1.8-2.4) L Total Bilirubin 0.8 MG/DL (0.2-1.0) Aspartate Amino Transf (AST/SGOT) 18 U/L (15-37) Alanine Aminotransferase (ALT/SGPT) < 6 U/L (12-78) L Alkaline Phosphatase 81 U/L (46-116) C-Reactive Protein, Quantitative 24.8 mg/dL (0.00-0.90) H Total Protein 5.9 G/DL (6.4-8.2) L Albumin 2.0 G/DL (3.4-5.0) L Globulin 3.9 g/dL Albumin/Globulin Ratio 0.5 (1.0-2.7) L Plan Problems: (1) Decubitus skin ulcer Assessment & Plan: Pt presented on admission with multiple full thickness pressure injuries R ,L buttocks and L ischium .R sacrum extending down to lower R buttocks erythematous with multiple areas with slough,(+) maceration along edges and periwound. Wound is malodorous. Wound with sloth that easily removed with non excisional debridement during clean up / washing. L sacrum extending into L lower buttocks erythematous ,macerated with scattered areas of yellow slough through out base of wound.Wound is malodorous. Small amt seropurulent exudate noted.Periwound noted to have darker skin tone that is indurated. L ischium darker than is normal skin tone and indurated with scattered open wound exuding small amt serous exudate. Incontinence associated dermatitis noted to perineum and medial aspects of both upper thigh.Skin is erythematous and denuded. Pt presented on admission in grossly unkempt state. Full thickness pressure injury to sacrum extending to R and L ischial regions.(L)18cm x (W)14cm. Sacral pressure injury measures(L)6cm x (W)8cm x (D)0.4cm. Scattered slough at base of wound. Muscle is palpable. Wound is now viable. Full thickness wounds R and L buttocks with scattered slough. Non-blanchable erythema with additional skin erosions periwound. Moisture Intertrigo noted to bilat breasts folds. abd folds and bilat groin areas. Skin is dry dry and flaky to both AKA stumps. Small partial thickness wound noted to L AKA (L)0.4cm x (W)0.4cm. Base of wound is moist and viable. Wound cleaned at bedside and non-excisional debridement performed of [facility]. Underlying tissue fairly healthy. The is now a stage IV sacral decubitus ulcer in the central portion right above the coccyx with palpable musculature. Wound is deteriorated since last admission. Tx.Plan: Cleanse wound Sacrum with saline. Apply Therahoney to Sacrum,R and L buttocks. Apply Moisture Barrier Paste periwound. Cover with Optifoam drsg Daily and prn. Apply Moisture Barrier Paste to folds of both breasts,abd folds ,and bilat groin areas with each incontinence care. Apply Cavilon Skin Barrier to L AKA daily. Reposition at least every 2hours or as tolerated. Off-load heels with pillow. APM/TIAGO mattress overlay. (2) Sepsis Assessment & Plan: 84-year-old female with hypotension, tachycardia, leukocytosis, abnormal labs. Currently in intensive care unit Right femoral central venous catheter recently placed - site looks okay for now If possible transition to oral medications through feeding tube. Patient is now off pressors and off PPI drip. If possible to have one peripheral line for antibiotics and fluids as necessary can DC central line and not need to replace. If not will need to have central line replaced if considered possible source or etiology of infectious process as per infectious disease will monitor On IV antibiotics as per infectious disease Trend labs We will follow with recommendations (3) GI bleed Assessment & Plan: Noted to have hematemesis while in nursing facility. No acute episode of hematemesis at this time stool is noted to be fairly dark Appreciate GI input (4) G tube feedings Assessment & Plan: DAILY ESTIMATED NEEDS: Needs based on ESRD/HD, wound/ 55kg adj for BL AKA 30-35 kcals/kg 0109-7745 total kcals 1.25-1.8 g protein/kg 69-99 g total protein 20-25 mL/kg 6409-1091 total fluid mLs NUTRITION DIAGNOSIS: * Increased kcal/pro intake needs R/T renal dysfunction, wound healing as evidenced by ESRD dx, on HD. admitted w/ advanced wounds including full thickness wounds x3, refer to WC maria elena (CURRENT TF: Glucerna 1.2 @55) ENTERAL NUTRITION RECOMMENDATIONS: Nepro @ 40ml/hr x 24 hrs + Prosource x1 daily to provide 960ml, 1728kcal, 78g + 11g pro, 698ml free water * WITH HEMODYNAMIC STABILITY, resume TF * Initiate Nepro @ 20ml/hr x 6 hrs, advance 10ml q 4-6 hrs as tolerated to goal. * HOB over 30 degrees/ water flush per MD ADDITIONAL RECOMMENDATIONS: * Calibrated dry wt post HD * Wound healing: add Nephrovite 1 tab QD - Add MAX BID - Add ZnSO4 220mg daily x10 days * Trophic feeds when on pressor support * Monitor Willian Avila Jun 19, 2019 12:58
--- NOTE | 2019-06-19 13:30 | Procedure Note ---
DATE OF PROCEDURE: 06/19/2019 SURGEON: Ezequiel Perales M.D. PROCEDURE: Upper endoscopy with biopsy. ANESTHESIA: Per Dr. Edith De La Rosa. INSTRUMENT: Olympus adult flexible upper endoscope. INDICATION: GI bleeding. REASON FOR PROCEDURE: The procedure, risks, benefits, and possible consequences, including hemorrhage, aspiration, perforation and infection, and alternative treatments, were explained to the patient/legal guardian by Dr. Ezequiel Perales and the patient/legal guardian understood and accepted these risks. PROCEDURE IN DETAIL: After informed consent was obtained and the patient was adequately sedated, Olympus upper endoscope was advanced from the mouth into the second portion of the duodenum and retroflexion was performed in the stomach. The patient had evidence of a shallow duodenal ulceration, most probably the source of bleeding. G-tube was passed into the small bowel. There was also evidence of diffuse gastritis. Random biopsy from antrum was obtained to rule out H. pylori infection. On retroflexion in the stomach, the patient had evidence of medium-sized hiatal hernia. SUMMARY OF FINDINGS: 1. Medium-sized hiatal hernia. 2. Gastritis, status post biopsy. 3. Duodenal ulceration without any evidence of active bleeding or any visible vessel or adherent clot. RECOMMENDATIONS: Resume tube feeding. Start the patient on Prevacid per G-tube 30 mg daily. Monitor hemoglobin and hematocrit, transfuse as needed. Monitor labs. I want to thank, Dr. Alcantar, for this kind referral. Ezequiel Perales M.D. DR: RANDALL JOB#: [id number] CC: Pam Alcantar M.D.; Fax#: [phone]
[2019-06-19] MEDS ORDERED: Acetaminophen 650mg/20.3ml GT PRN (14:30)
[2019-06-19] MEDS ORDERED: Albuterol/Ipratropium 3ml neb HHN PRN (14:30)
[2019-06-19] MEDS ORDERED: HydrALAZINE 25mg tab ORAL PRN (14:30)
[2019-06-19] MEDS ORDERED: LORazepam Inj 2mg/ml 1ml IV PRN (14:30)
[2019-06-19] MEDS ORDERED: Morphine Sulfate 4mg/ml Inj (IV USE ONLY) IVP PRN (14:30)
[2019-06-19] MEDS ORDERED: Meropenem 500 MG in NS 55 ML IVPB SCH (15:00)
--- NOTE | 2019-06-19 15:13 | Infectious Diseases Prog Note ---
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 sputum for AFB smear x 2 is negative so far await other smear , and PCR MTB is negative , with negative T spot , we make take off air born isolation . (2) Decubitus skin ulcer Assessment & Plan: with maceration and necrosis , possibly infected, had surgical eval , already on wide spectrum antibiotics , keep off loading with local wound care as needed as per hospital protocol (3) Sepsis Assessment & Plan: with shock due to staphylococcus spp with fever, source most likely sacral/buttock pressure wounds . continue vancomycin and meropenem empirically pending final blood cultures . stool for C diff is negative . echo to rule out vegetations . will repeat blood culture x2 to confirm clearance (4) GI bleed Assessment & Plan: monitor H/H , transfuse as needed, GI eval for source control (5) ESRD (end stage renal disease) on dialysis Assessment & Plan: continue HD as per renal , antibiotics renally dosed as per pharmacy (6) Anemia Assessment & Plan: due to the above , transfuse blood as needed, GI eval for source control (7) Fever Assessment & Plan: while on zyvox and meropenem, suspect femoral line related or drug fever , will discontinue femoral line . Subjective ROS Limited/Unobtainable: Yes Allergies: Coded Allergies: GABAPENTIN (Unverified Allergy, Unknown, 06/14/19) Subjective she was resting in bed in ICU, quiet, nonverbal, more awake, and alert, no cough or hemoptysis today, spiked fever again today , and was hypotensive Objective Vital Signs Last 24 Hour Vital Signs Date Time Temp Pulse Resp B/P (MAP) Pulse Ox O2 Delivery O2 Flow Rate FiO2 06/19/19 13:00 98.1 85 20 113/58 (76) 100 06/19/19 12:37 79 18 100 06/19/19 12:35 80 18 100 06/19/19 12:00 Room Air 06/19/19 12:00 98.8 82 21 128/59 (82) 100 06/19/19 12:00 83 06/19/19 11:00 79 21 117/64 (81) 100 06/19/19 10:00 86 20 125/59 (81) 100 06/19/19 09:00 88 20 118/46 (70) 100 06/19/19 08:54 99.8 06/19/19 08:00 93 06/19/19 08:00 93 23 132/59 (83) 100 06/19/19 08:00 Room Air 06/19/19 07:00 99.8 92 24 132/52 (78) 100 06/19/19 05:00 99 23 136/59 (84) 100 06/19/19 04:00 84 06/19/19 04:00 99.9 100 24 147/58 (87) 100 06/19/19 04:00 Room Air 06/19/19 03:16 103 26 159/51 (87) 96 06/19/19 03:00 105 32 129/71 (90) 86 06/19/19 02:00 98 25 115/63 (80) 100 06/19/19 01:25 145/64 06/19/19 01:00 94 24 145/64 (91) 100 06/19/19 00:00 Room Air 06/19/19 00:00 99.8 92 20 130/90 (103) 98 06/19/19 00:00 96 06/18/19 23:00 97 23 128/53 (78) 99 06/18/19 22:00 98 22 120/71 (87) 100 06/18/19 21:00 98 25 113/60 (77) 100 06/18/19 20:14 99 Nasal Cannula 2.0 28 06/18/19 20:04 98 21 99 Nasal Cannula 2.0 28 06/18/19 20:00 100.3 103 26 120/63 (82) 99 06/18/19 20:00 Room Air 06/18/19 20:00 97 06/18/19 19:00 109 30 146/61 (89) 99 06/18/19 18:00 105 32 131/71 (91) 86 06/18/19 17:00 98 26 138/76 (96) 100 06/18/19 16:00 92 06/18/19 16:00 97 32 129/50 (76) 96 06/18/19 16:00 Room Air Height (Feet): 3 Height (Inches): 0.00 Weight (Pounds): 156 General Appearance: WD/WN, no acute distress HEENT: normocephalic, atraumatic, anicteric, mucous membranes moist, PERRL, EOMI, pharynx normal, supple, no JVD Respiratory/Chest: chest wall non-tender, lungs clear, normal breath sounds, no respiratory distress, no accessory muscle use, decreased breath sounds Cardiovascular: normal peripheral pulses, normal rate, regular rhythm, no gallop/murmur, no JVD Abdomen: normal bowel sounds, soft, non tender, no organomegaly, non distended , no mass, no scars Genitourinary: normal external genitalia Extremities: no cyanosis, no clubbing Skin: no rash, no lesions, ulcers Neurologic/Psychiatric: alert, unresponsiveness Lymphatic: no neck adenopathy, no groin adenopathy Musculoskeletal: normal muscle bulk, no effusion Microbiology Date/Time Source Procedure Growth Status 06/17/19 22:00 Blood Blood Culture - Preliminary NO GROWTH AFTER 24 HOURS Resulted 06/17/19 21:45 Blood Blood Culture - Preliminary NO GROWTH AFTER 24 HOURS Resulted 06/17/19 05:10 Sputum AFB Specimen Processing Tissue - Final Resulted 06/17/19 05:10 Sputum Acid Fast Bacilli Smear - Final Resulted 06/17/19 05:10 Sputum Acid Fast Bacilli Culture Pending Resulted Laboratory Tests Test 06/18/19 18:15 06/18/19 23:30 06/19/19 03:50 Lactic Acid Level 2.30 mmol/L (0.4-2.0) H 0.80 mmol/L (0.66-2.22) White Blood Count 10.6 K/UL (4.8-10.8) Red Blood Count 2.93 M/UL (4.20-5.40) L Hemoglobin 8.5 G/DL (12.0-16.0) L Hematocrit 27.0 % (37.0-47.0) L Mean Corpuscular Volume 92 FL (80-99) Mean Corpuscular Hemoglobin 29.1 PG (27.0-31.0) Mean Corpuscular Hemoglobin Concent 31.5 G/DL (32.0-36.0) L Red Cell Distribution Width 17.3 % (11.6-14.8) H Platelet Count 162 K/UL (150-450) Mean Platelet Volume 6.0 FL (6.5-10.1) L Neutrophils (%) (Auto) % (45.0-75.0) Lymphocytes (%) (Auto) % (20.0-45.0) Monocytes (%) (Auto) % (1.0-10.0) Eosinophils (%) (Auto) % (0.0-3.0) Basophils (%) (Auto) % (0.0-2.0) Erythrocyte Sedimentation Rate 116 MM/HR (0-30) H Sodium Level 138 MMOL/L (136-145) Potassium Level 3.7 MMOL/L (3.5-5.1) Chloride Level 105 MMOL/L (98-107) Carbon Dioxide Level 23 MMOL/L (21-32) Anion Gap 10 mmol/L (5-15) Blood Urea Nitrogen 33 mg/dL (7-18) H Creatinine 5.7 MG/DL (0.55-1.30) H Estimat Glomerular Filtration Rate mL/min (>60) Glucose Level 139 MG/DL (74-106) H Calcium Level 8.3 MG/DL (8.5-10.1) L Phosphorus Level 4.5 MG/DL (2.5-4.9) Magnesium Level 1.6 MG/DL (1.8-2.4) L Total Bilirubin 0.8 MG/DL (0.2-1.0) Aspartate Amino Transf (AST/SGOT) 18 U/L (15-37) Alanine Aminotransferase (ALT/SGPT) < 6 U/L (12-78) L Alkaline Phosphatase 81 U/L (46-116) C-Reactive Protein, Quantitative 24.8 mg/dL (0.00-0.90) H Total Protein 5.9 G/DL (6.4-8.2) L Albumin 2.0 G/DL (3.4-5.0) L Globulin 3.9 g/dL Albumin/Globulin Ratio 0.5 (1.0-2.7) L Current Medications Medications (Trade) Dose Ordered Sig/Selene Route PRN Reason Start Time Stop Time Status Last Admin Dose Admin Acetaminophen (Tylenol) 650 mg Q4H PRN GT Fever 06/19/19 14:30 07/14/19 14:29 Albuterol/ Ipratropium (Albuterol/ Ipratropium) 3 ml Q4H PRN HHN Shortness of Breath 06/19/19 14:30 06/24/19 14:29 Chlorhexidine Gluconate (Ivory-Hex 2%) 1 applic DAILY@2000 TOPIC 06/19/19 20:00 07/19/19 19:59 Dextrose (Dextrose 50%) 25 ml Q30M PRN IV Hypoglycemia 06/19/19 14:45 07/18/19 20:12 Dextrose (Dextrose 50%) 50 ml Q30M PRN IV hypoglycemia 06/19/19 14:45 07/18/19 20:14 Hydralazine HCl (Apresoline) 25 mg Q6H PRN ORAL For High Blood Pressure 06/19/19 14:30 07/14/19 14:29 Insulin Aspart (NovoLOG) BEFORE MEALS AND HS SUBQ 06/19/19 16:30 07/14/19 20:59 Linezolid 300 ml @ 300 mls/hr Q12HR@0300,1500 IVPB 06/19/19 15:00 06/25/19 14:59 Lorazepam (Ativan 2mg/ml 1ml) 2 mg Q4H PRN IV For Anxiety 06/19/19 14:30 06/21/19 14:29 Meropenem 500 mg/ Sodium Chloride 55 ml @ 110 mls/hr Q24H IVPB 06/19/19 15:00 06/21/19 14:59 Morphine Sulfate (Morphine Sulfate) 4 mg Q4H PRN IVP For Pain 06/19/19 14:30 06/21/19 14:29 Ondansetron HCl (Zofran) 4 mg Q6H PRN IVP Nausea & Vomiting 06/19/19 14:30 07/14/19 14:29 Pantoprazole (Protonix) 40 mg EVERY 12 HOURS IVP 06/19/19 21:00 07/19/19 11:59 Zinc Sulfate (Zinc Sulfate) 220 mg DAILY ORAL 06/20/19 09:00 06/30/19 08:59 Morteza Castillo M.D. Jun 19, 2019 15:13
--- NOTE | 2019-06-19 15:41 | Cardiac Electrophysiology PN ---
Assessment/Plan Assessment/Plan 1. S/P septic shock. Blood pressure is improved. Off Levophed. The patient is on IV antibiotic. Her EKG showed no acute ischemic changes. ECho Nl EF 60% 2. End-stage renal disease, on hemodialysis. 3. Gastrointestinal bleed and anemia. S/P EGD by Dr perales today Medium-sized hiatal hernia, Gastritis, status post biopsy and Duodenal ulceration without any evidence of active bleeding 4. Decubitus ulcer. 5. Hypertension 6. Diabetes. 7. Dysphagia, status post G-tube. Subjective Subjective No CP or SOB. In SR. nonverbal. RN at bedside. Had EGD by Dr Perales that showed . 1. Medium-sized hiatal hernia. 2. Gastritis, status post biopsy. 3. Duodenal ulceration without any evidence of active bleeding or any visible vessel or adherent clot. Objective Last 24 Hour Vital Signs Date Time Temp Pulse Resp B/P (MAP) Pulse Ox O2 Delivery O2 Flow Rate FiO2 06/19/19 13:00 98.1 85 20 113/58 (76) 100 06/19/19 12:37 79 18 100 06/19/19 12:35 80 18 100 06/19/19 12:00 Room Air 06/19/19 12:00 98.8 82 21 128/59 (82) 100 06/19/19 12:00 83 06/19/19 11:00 79 21 117/64 (81) 100 06/19/19 10:00 86 20 125/59 (81) 100 06/19/19 09:00 88 20 118/46 (70) 100 06/19/19 08:54 99.8 06/19/19 08:00 93 06/19/19 08:00 93 23 132/59 (83) 100 06/19/19 08:00 Room Air 06/19/19 07:00 99.8 92 24 132/52 (78) 100 06/19/19 05:00 99 23 136/59 (84) 100 06/19/19 04:00 84 06/19/19 04:00 99.9 100 24 147/58 (87) 100 06/19/19 04:00 Room Air 06/19/19 03:16 103 26 159/51 (87) 96 06/19/19 03:00 105 32 129/71 (90) 86 06/19/19 02:00 98 25 115/63 (80) 100 06/19/19 01:25 145/64 06/19/19 01:00 94 24 145/64 (91) 100 06/19/19 00:00 Room Air 06/19/19 00:00 99.8 92 20 130/90 (103) 98 06/19/19 00:00 96 06/18/19 23:00 97 23 128/53 (78) 99 06/18/19 22:00 98 22 120/71 (87) 100 06/18/19 21:00 98 25 113/60 (77) 100 06/18/19 20:14 99 Nasal Cannula 2.0 28 06/18/19 20:04 98 21 99 Nasal Cannula 2.0 28 06/18/19 20:00 100.3 103 26 120/63 (82) 99 06/18/19 20:00 Room Air 06/18/19 20:00 97 06/18/19 19:00 109 30 146/61 (89) 99 06/18/19 18:00 105 32 131/71 (91) 86 06/18/19 17:00 98 26 138/76 (96) 100 06/18/19 16:00 92 06/18/19 16:00 97 32 129/50 (76) 96 06/18/19 16:00 Room Air Intake and Output 06/18/19 06/19/19 18:59 06:59 Intake Total 610 ml 1075 ml Balance 610 ml 1075 ml Intake Oral 0 ml 0 ml IV Total 580 ml 1075 ml Other 30 ml # Bowel Movements 1 Laboratory Tests Test 06/18/19 18:15 06/18/19 23:30 06/19/19 03:50 Lactic Acid Level 2.30 mmol/L (0.4-2.0) H 0.80 mmol/L (0.66-2.22) White Blood Count 10.6 K/UL (4.8-10.8) Red Blood Count 2.93 M/UL (4.20-5.40) L Hemoglobin 8.5 G/DL (12.0-16.0) L Hematocrit 27.0 % (37.0-47.0) L Mean Corpuscular Volume 92 FL (80-99) Mean Corpuscular Hemoglobin 29.1 PG (27.0-31.0) Mean Corpuscular Hemoglobin Concent 31.5 G/DL (32.0-36.0) L Red Cell Distribution Width 17.3 % (11.6-14.8) H Platelet Count 162 K/UL (150-450) Mean Platelet Volume 6.0 FL (6.5-10.1) L Neutrophils (%) (Auto) % (45.0-75.0) Lymphocytes (%) (Auto) % (20.0-45.0) Monocytes (%) (Auto) % (1.0-10.0) Eosinophils (%) (Auto) % (0.0-3.0) Basophils (%) (Auto) % (0.0-2.0) Erythrocyte Sedimentation Rate 116 MM/HR (0-30) H Sodium Level 138 MMOL/L (136-145) Potassium Level 3.7 MMOL/L (3.5-5.1) Chloride Level 105 MMOL/L (98-107) Carbon Dioxide Level 23 MMOL/L (21-32) Anion Gap 10 mmol/L (5-15) Blood Urea Nitrogen 33 mg/dL (7-18) H Creatinine 5.7 MG/DL (0.55-1.30) H Estimat Glomerular Filtration Rate mL/min (>60) Glucose Level 139 MG/DL (74-106) H Calcium Level 8.3 MG/DL (8.5-10.1) L Phosphorus Level 4.5 MG/DL (2.5-4.9) Magnesium Level 1.6 MG/DL (1.8-2.4) L Total Bilirubin 0.8 MG/DL (0.2-1.0) Aspartate Amino Transf (AST/SGOT) 18 U/L (15-37) Alanine Aminotransferase (ALT/SGPT) < 6 U/L (12-78) L Alkaline Phosphatase 81 U/L (46-116) C-Reactive Protein, Quantitative 24.8 mg/dL (0.00-0.90) H Total Protein 5.9 G/DL (6.4-8.2) L Albumin 2.0 G/DL (3.4-5.0) L Globulin 3.9 g/dL Albumin/Globulin Ratio 0.5 (1.0-2.7) L Microbiology Date/Time Source Procedure Growth Status 06/17/19 22:00 Blood Blood Culture - Preliminary NO GROWTH AFTER 24 HOURS Resulted 06/17/19 21:45 Blood Blood Culture - Preliminary NO GROWTH AFTER 24 HOURS Resulted 06/17/19 05:10 Sputum AFB Specimen Processing Tissue - Final Resulted 06/17/19 05:10 Sputum Acid Fast Bacilli Smear - Final Resulted 06/17/19 05:10 Sputum Acid Fast Bacilli Culture Pending Resulted Objective HEAD AND NECK: Shows no JVD. LUNGS: Coarse rhonchi. CARDIOVASCULAR: Regular S1 and S2 with no gallop. ABDOMEN: Soft. G-tube. EXTREMITIES: Bilateral above-knee amputation. She has a triple-lumen in the right femoral area and dialysis access in the right arm. Will Osborne MD Jun 19, 2019 15:41
[2019-06-19] MEDS ORDERED: Dyna-Hex 2% Top Sol 2oz TOPIC SCH ×2 (20:00)
[2019-06-19] MEDS: Pantoprazole Inj IVP SCH (21:52)
[2019-06-20] VITALS: BP 136/50
[2019-06-20 04:00] VITALS: BP 131/56
[2019-06-20] MEDS: NovoLOG Insulin Flexpen SUBQ SCH ×4 (06:38→20:32)
[2019-06-20 07:20] LABS: BASOPHILS % (AUTO) 0.3 % (0.0-2.0); EOSINOPHILS % (AUTO) 4.6 % (0.0-3.0); HEMATOCRIT 27.6 % (37.0-47.0); HEMOGLOBIN 8.8 G/DL (12.0-16.0); LYMPHOCYTES % (AUTO) 9.4 % (20.0-45.0); MEAN CORPUSCULAR VOLUME 92 FL (80-99); MONOCYTES % (AUTO) 6.5 % (1.0-10.0); NEUTROPHILS % (AUTO) 79.1 % (45.0-75.0); PLATELET COUNT 188 K/UL (150-450); RED BLOOD COUNT 3.01 M/UL (4.20-5.40); RED CELL DISTRIBUTION WIDTH 16.9 % (11.6-14.8); WHITE BLOOD COUNT 8.2 K/UL (4.8-10.8)
[2019-06-20 07:31] LABS: ANION GAP 10 mmol/L (5-15); BLOOD UREA NITROGEN 41 mg/dL (7-18); CALCIUM 9.1 MG/DL (8.5-10.1); CARBON DIOXIDE 25 MMOL/L (21-32); CHLORIDE 106 MMOL/L (98-107); CREATININE 6.9 MG/DL (0.55-1.30); SODIUM 141 MMOL/L (136-145)
[2019-06-20 08:00] VITALS: BP 94/43
[2019-06-20] MEDS ORDERED: Zinc Sulfate 220mg cap ORAL SCH ×2 (09:00)
--- NOTE | 2019-06-20 09:02 | General Progress Note ---
Assessment/Plan Status: stable, unchanged Assessment/Plan: 1. Septic Shock - improved. off pressor and doing well. Cont IV Abx and D/C planning to [facility] in 1-2 days. In Tele now. 2. ESRD on HD - on HD that will happen today. 3. Sacral pressure ulcer - surgery is following. 4. Upper GI bleed - H/H currently stable. s/p One unit of PRBC. EGD showed Gastritis and nonbleeding duodenal ulcer. 5. Sepsis - cont IV Abx. ID following the patient. blood cultures showed staph Epidermatous. 6. HLD - cont home meds. 7. Gout - cont Allopurinol 8. H/O PVD 9. H/O DVT 10. DM II - cont SSI. 11. HTN - off meds due to septic shock. 12. 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 Subjective Date patient seen: Jun 20, 2019 Time patient seen: 08:40 Constitutional: Reports: no symptoms HEENT: Reports: no symptoms Cardiovascular: Reports: no symptoms Respiratory: Reports: no symptoms Gastrointestinal/Abdominal: Reports: no symptoms Genitourinary: Reports: no symptoms Neurologic/Psychiatric: Reports: no symptoms Endocrine: Reports: no symptoms Hematologic/Lymphatic: Reports: anemia Allergies: Coded Allergies: GABAPENTIN (Unverified Allergy, Unknown, 06/14/19) Subjective Patient is in Tele now. Afebrile and doing better. EGD showed duodenal ulcer, nonbleeding and gastritis. she is ESRD on HD. Objective Last 24 Hour Vital Signs Date Time Temp Pulse Resp B/P (MAP) Pulse Ox O2 Delivery O2 Flow Rate FiO2 06/20/19 04:00 98.6 92 17 131/56 (81) 98 06/20/19 04:00 90 06/20/19 00:00 98.2 90 18 136/50 (78) 99 06/20/19 00:00 91 06/19/19 21:50 96 Room Air 21 06/19/19 21:50 99 20 96 Room Air 21 06/19/19 21:00 Room Air 06/19/19 20:00 98.1 91 18 109/61 (77) 98 06/19/19 20:00 93 06/19/19 16:00 Room Air 06/19/19 16:00 86 06/19/19 16:00 98.7 87 18 112/61 (78) 96 06/19/19 13:00 98.1 85 20 113/58 (76) 100 06/19/19 12:44 89 06/19/19 12:37 79 18 100 06/19/19 12:35 80 18 100 06/19/19 12:00 Room Air 06/19/19 12:00 98.8 82 21 128/59 (82) 100 06/19/19 12:00 83 06/19/19 11:00 79 21 117/64 (81) 100 06/19/19 10:00 86 20 125/59 (81) 100 06/19/19 09:00 88 20 118/46 (70) 100 Intake and Output 06/19/19 06/20/19 19:00 07:00 Intake Total 437.5 ml Balance 437.5 ml Intake Oral 0 ml IV Total 437.5 ml # Voids 7 # Bowel Movements 4 Laboratory Tests 06/20/19 07:05: White Blood Count 8.2, Red Blood Count 3.01L, Hemoglobin 8.8L, Hematocrit 27.6L , Mean Corpuscular Volume 92, Mean Corpuscular Hemoglobin 29.4, Mean Corpuscular Hemoglobin Concent 32.1, Red Cell Distribution Width 16.9H, Platelet Count 188, Mean Platelet Volume 7.0, Neutrophils (%) (Auto) 79.1H, Lymphocytes (%) (Auto) 9.4L, Monocytes (%) (Auto) 6.5, Eosinophils (%) (Auto) 4.6H, Basophils (%) (Auto) 0.3, Sodium Level 141, Potassium Level 4.0, Chloride Level 106, Carbon Dioxide Level 25, Anion Gap 10, Blood Urea Nitrogen 41H, Creatinine 6.9H, Estimat Glomerular Filtration Rate , Glucose Level 113H, Calcium Level 9.1 Height (Feet): 3 Height (Inches): 0.00 Weight (Pounds): 188 General Appearance: no apparent distress EENT: normal ENT inspection Neck: non-tender, normal alignment Cardiovascular: normal rate, regular rhythm Respiratory/Chest: chest wall non-tender, lungs clear, normal breath sounds Abdomen: normal bowel sounds, non tender, soft Extremities: other - bilateral above the knee amputation Neurologic: responsive Skin: warm/dry Pam Alcantar MD Jun 20, 2019 09:02
[2019-06-20] MEDS ORDERED: HydrALAZINE 25mg tab GT PRN ×3 (09:45→13:45)
[2019-06-20] MEDS: Pantoprazole Inj IVP SCH ×3 (09:50→20:31)
--- NOTE | 2019-06-20 10:01 | GI Progress Note ---
Assessment/Plan Problems: (1) GI bleed ICD Codes: K92.2 - Gastrointestinal hemorrhage, unspecified SNOMED: 67741571 (2) Anemia due to chronic kidney disease ICD Codes: N18.9 - Chronic kidney disease, unspecified; D63.1 - Anemia in chronic kidney disease SNOMED: 977039280 (3) Septic shock ICD Codes: A41.9 - Sepsis, unspecified organism; R65.21 - Severe sepsis with septic shock SNOMED: 47128535 (4) G tube feedings ICD Codes: Z93.1 - Gastrostomy status SNOMED: 562273436, 251361407, 372167477 Status: unchanged Status Narrative Discussed with Dr. Perales. Assessment/Plan SUMMARY OF FINDINGS: 1. Medium-sized hiatal hernia. 2. Gastritis, status post biopsy. 3. Duodenal ulceration without any evidence of active bleeding or any visible vessel or adherent clot. RECOMMENDATIONS: Resume tube feeding. Start the patient on Prevacid per G-tube 30 mg daily. Monitor hemoglobin and hematocrit, transfuse as needed. Monitor labs. The patient was seen and examined at bedside and all new and available data was reviewed in the patients chart. I agree with the above findings, impression and plan. (Patient seen earlier today. Signature stamp does not reflect patient encounter time.). - Ezequiel Perales MD Subjective Subjective limited Objective Last 24 Hour Vital Signs Date Time Temp Pulse Resp B/P (MAP) Pulse Ox O2 Delivery O2 Flow Rate FiO2 06/20/19 08:00 98.4 95 18 94/43 (60) 97 06/20/19 04:00 98.6 92 17 131/56 (81) 98 06/20/19 04:00 90 06/20/19 00:00 98.2 90 18 136/50 (78) 99 06/20/19 00:00 91 06/19/19 21:50 96 Room Air 21 06/19/19 21:50 99 20 96 Room Air 21 06/19/19 21:00 Room Air 06/19/19 20:00 98.1 91 18 109/61 (77) 98 06/19/19 20:00 93 06/19/19 16:00 Room Air 06/19/19 16:00 86 06/19/19 16:00 98.7 87 18 112/61 (78) 96 06/19/19 13:00 98.1 85 20 113/58 (76) 100 06/19/19 12:44 89 06/19/19 12:37 79 18 100 06/19/19 12:35 80 18 100 06/19/19 12:00 Room Air 06/19/19 12:00 98.8 82 21 128/59 (82) 100 06/19/19 12:00 83 06/19/19 11:00 79 21 117/64 (81) 100 Intake and Output 06/19/19 06/20/19 19:00 07:00 Intake Total 437.5 ml Balance 437.5 ml Intake Oral 0 ml IV Total 437.5 ml # Voids 7 # Bowel Movements 4 Laboratory Tests Test 06/20/19 07:05 White Blood Count 8.2 K/UL (4.8-10.8) Red Blood Count 3.01 M/UL (4.20-5.40) L Hemoglobin 8.8 G/DL (12.0-16.0) L Hematocrit 27.6 % (37.0-47.0) L Mean Corpuscular Volume 92 FL (80-99) Mean Corpuscular Hemoglobin 29.4 PG (27.0-31.0) Mean Corpuscular Hemoglobin Concent 32.1 G/DL (32.0-36.0) Red Cell Distribution Width 16.9 % (11.6-14.8) H Platelet Count 188 K/UL (150-450) Mean Platelet Volume 7.0 FL (6.5-10.1) Neutrophils (%) (Auto) 79.1 % (45.0-75.0) H Lymphocytes (%) (Auto) 9.4 % (20.0-45.0) L Monocytes (%) (Auto) 6.5 % (1.0-10.0) Eosinophils (%) (Auto) 4.6 % (0.0-3.0) H Basophils (%) (Auto) 0.3 % (0.0-2.0) Sodium Level 141 MMOL/L (136-145) Potassium Level 4.0 MMOL/L (3.5-5.1) Chloride Level 106 MMOL/L (98-107) Carbon Dioxide Level 25 MMOL/L (21-32) Anion Gap 10 mmol/L (5-15) Blood Urea Nitrogen 41 mg/dL (7-18) H Creatinine 6.9 MG/DL (0.55-1.30) H Estimat Glomerular Filtration Rate mL/min (>60) Glucose Level 113 MG/DL (74-106) H Calcium Level 9.1 MG/DL (8.5-10.1) Height (Feet): 3 Height (Inches): 0.00 Weight (Pounds): 188 General Appearance: no apparent distress Cardiovascular: normal rate Respiratory/Chest: normal breath sounds, no respiratory distress Abdominal Exam: normal bowel sounds, non tender, soft Extremities: non-tender Lidia Recio NP Jun 20, 2019 10:01
--- NOTE | 2019-06-20 10:44 | Pulmonology Progress Note ---
Assessment/Plan Problems: (1) Septic shock (2) GI bleed (3) Anemia (4) Decubitus skin ulcer (5) ESRD (end stage renal disease) on dialysis (6) DM (diabetes mellitus) (7) G tube feedings (8) HTN (hypertension) Assessment/Plan for HD today hear rate, bp stable h/h stable EGD done, tolerating feeding check electrolytes med/surg Subjective ROS Limited/Unobtainable: Yes Constitutional: Reports: no symptoms HEENT: Repors: no symptoms Allergies: Coded Allergies: GABAPENTIN (Unverified Allergy, Unknown, 06/14/19) Objective Last 24 Hour Vital Signs Date Time Temp Pulse Resp B/P (MAP) Pulse Ox O2 Delivery O2 Flow Rate FiO2 06/20/19 08:00 98.4 95 18 94/43 (60) 97 06/20/19 04:00 98.6 92 17 131/56 (81) 98 06/20/19 04:00 90 06/20/19 00:00 98.2 90 18 136/50 (78) 99 06/20/19 00:00 91 06/19/19 21:50 96 Room Air 21 06/19/19 21:50 99 20 96 Room Air 21 06/19/19 21:00 Room Air 06/19/19 20:00 98.1 91 18 109/61 (77) 98 06/19/19 20:00 93 06/19/19 16:00 Room Air 06/19/19 16:00 86 06/19/19 16:00 98.7 87 18 112/61 (78) 96 06/19/19 13:00 98.1 85 20 113/58 (76) 100 06/19/19 12:44 89 06/19/19 12:37 79 18 100 06/19/19 12:35 80 18 100 06/19/19 12:00 Room Air 06/19/19 12:00 98.8 82 21 128/59 (82) 100 06/19/19 12:00 83 06/19/19 11:00 79 21 117/64 (81) 100 Intake and Output 06/19/19 06/20/19 19:00 07:00 Intake Total 437.5 ml Balance 437.5 ml Intake Oral 0 ml IV Total 437.5 ml # Voids 7 # Bowel Movements 4 General Appearance: WD/WN HEENT: normocephalic, atraumatic Respiratory/Chest: chest wall non-tender, lungs clear Breasts: no masses Cardiovascular: normal peripheral pulses Abdomen: normal bowel sounds, soft, non tender Extremities: no cyanosis Microbiology Date/Time Source Procedure Growth Status 06/18/19 16:30 Blood Blood Culture - Preliminary NO GROWTH AFTER 24 HOURS Resulted 06/18/19 16:15 Blood Blood Culture - Preliminary NO GROWTH AFTER 24 HOURS Resulted 06/17/19 22:00 Blood Blood Culture - Preliminary NO GROWTH AFTER 48 HOURS Resulted 06/17/19 21:45 Blood Blood Culture - Preliminary NO GROWTH AFTER 48 HOURS Resulted Laboratory Tests 06/20/19 07:05: White Blood Count 8.2, Red Blood Count 3.01L, Hemoglobin 8.8L, Hematocrit 27.6L , Mean Corpuscular Volume 92, Mean Corpuscular Hemoglobin 29.4, Mean Corpuscular Hemoglobin Concent 32.1, Red Cell Distribution Width 16.9H, Platelet Count 188, Mean Platelet Volume 7.0, Neutrophils (%) (Auto) 79.1H, Lymphocytes (%) (Auto) 9.4L, Monocytes (%) (Auto) 6.5, Eosinophils (%) (Auto) 4.6H, Basophils (%) (Auto) 0.3, Sodium Level 141, Potassium Level 4.0, Chloride Level 106, Carbon Dioxide Level 25, Anion Gap 10, Blood Urea Nitrogen 41H, Creatinine 6.9H, Estimat Glomerular Filtration Rate , Glucose Level 113H, Calcium Level 9.1 Current Medications Medications (Trade) Dose Ordered Sig/Selene Route PRN Reason Start Time Stop Time Status Last Admin Dose Admin Acetaminophen (Tylenol) 650 mg Q4H PRN GT Fever 06/19/19 14:30 07/14/19 14:29 Albuterol/ Ipratropium (Albuterol/ Ipratropium) 3 ml Q4H PRN HHN Shortness of Breath 06/19/19 14:30 06/24/19 14:29 Chlorhexidine Gluconate (Ivory-Hex 2%) 1 applic DAILY@1999 TOPIC 06/19/19 20:00 07/19/19 19:59 06/19/19 20:35 Dextrose (Dextrose 50%) 25 ml Q30M PRN IV Hypoglycemia 06/19/19 14:45 07/18/19 20:12 Dextrose (Dextrose 50%) 50 ml Q30M PRN IV hypoglycemia 06/19/19 14:45 07/18/19 20:14 Hydralazine HCl (Apresoline) 25 mg Q6H PRN GT For High Blood Pressure 06/20/19 10:15 07/14/19 14:29 Insulin Aspart (NovoLOG) BEFORE MEALS AND HS SUBQ 06/19/19 16:30 07/14/19 20:59 06/20/19 06:38 Linezolid (Zyvox) 600 mg Q12HR GT 06/20/19 09:00 06/25/19 08:59 06/20/19 09:54 Lorazepam (Ativan 2mg/ml 1ml) 2 mg Q4H PRN IV For Anxiety 06/19/19 14:30 06/21/19 14:29 Meropenem 500 mg/ Sodium Chloride 55 ml @ 110 mls/hr Q24H IVPB 06/19/19 15:00 06/25/19 14:59 06/19/19 15:09 Morphine Sulfate (Morphine Sulfate) 4 mg Q4H PRN IVP For Pain 06/19/19 14:30 06/21/19 14:29 Ondansetron HCl (Zofran) 4 mg Q6H PRN IVP Nausea & Vomiting 06/19/19 14:30 07/14/19 14:29 Pantoprazole (Protonix) 40 mg EVERY 12 HOURS IVP 06/19/19 21:00 07/19/19 11:59 06/19/19 21:52 Zinc Sulfate (Zinc Sulfate) 220 mg DAILY GT 06/21/19 09:00 06/30/19 08:59 Rosemary Lui MD Jun 20, 2019 10:44
[2019-06-20 12:00] VITALS: BP 123/53
--- NOTE | 2019-06-20 12:00 | Surgery Progress Note ---
Surgery Progress Note Subjective Additional Comments downgraded improving exam stable labs noted line removed Objective Last 24 Hour Vital Signs Date Time Temp Pulse Resp B/P (MAP) Pulse Ox O2 Delivery O2 Flow Rate FiO2 06/20/19 09:00 Room Air 06/20/19 08:00 94 06/20/19 08:00 98.4 95 18 94/43 (60) 97 06/20/19 04:00 98.6 92 17 131/56 (81) 98 06/20/19 04:00 90 06/20/19 00:00 98.2 90 18 136/50 (78) 99 06/20/19 00:00 91 06/19/19 21:50 96 Room Air 21 06/19/19 21:50 99 20 96 Room Air 21 06/19/19 21:00 Room Air 06/19/19 20:00 98.1 91 18 109/61 (77) 98 06/19/19 20:00 93 06/19/19 16:00 Room Air 06/19/19 16:00 86 06/19/19 16:00 98.7 87 18 112/61 (78) 96 06/19/19 13:00 98.1 85 20 113/58 (76) 100 06/19/19 12:44 89 06/19/19 12:37 79 18 100 06/19/19 12:35 80 18 100 06/19/19 12:00 Room Air 06/19/19 12:00 98.8 82 21 128/59 (82) 100 06/19/19 12:00 83 I&O Intake and Output 06/19/19 06/20/19 19:00 07:00 Intake Total 437.5 ml Balance 437.5 ml Intake Oral 0 ml IV Total 437.5 ml # Voids 7 # Bowel Movements 4 Dressing: dry Wound: clean Cardiovascular: RSR Respiratory: clear Abdomen: soft, present bowel sounds Extremities: other Laboratory Tests Test 06/20/19 07:05 White Blood Count 8.2 K/UL (4.8-10.8) Red Blood Count 3.01 M/UL (4.20-5.40) L Hemoglobin 8.8 G/DL (12.0-16.0) L Hematocrit 27.6 % (37.0-47.0) L Mean Corpuscular Volume 92 FL (80-99) Mean Corpuscular Hemoglobin 29.4 PG (27.0-31.0) Mean Corpuscular Hemoglobin Concent 32.1 G/DL (32.0-36.0) Red Cell Distribution Width 16.9 % (11.6-14.8) H Platelet Count 188 K/UL (150-450) Mean Platelet Volume 7.0 FL (6.5-10.1) Neutrophils (%) (Auto) 79.1 % (45.0-75.0) H Lymphocytes (%) (Auto) 9.4 % (20.0-45.0) L Monocytes (%) (Auto) 6.5 % (1.0-10.0) Eosinophils (%) (Auto) 4.6 % (0.0-3.0) H Basophils (%) (Auto) 0.3 % (0.0-2.0) Sodium Level 141 MMOL/L (136-145) Potassium Level 4.0 MMOL/L (3.5-5.1) Chloride Level 106 MMOL/L (98-107) Carbon Dioxide Level 25 MMOL/L (21-32) Anion Gap 10 mmol/L (5-15) Blood Urea Nitrogen 41 mg/dL (7-18) H Creatinine 6.9 MG/DL (0.55-1.30) H Estimat Glomerular Filtration Rate mL/min (>60) Glucose Level 113 MG/DL (74-106) H Calcium Level 9.1 MG/DL (8.5-10.1) Plan Problems: (1) Decubitus skin ulcer Assessment & Plan: Pt presented on admission with multiple full thickness pressure injuries R ,L buttocks and L ischium .R sacrum extending down to lower R buttocks erythematous with multiple areas with slough,(+) maceration along edges and periwound. Wound is malodorous. Wound with sloth that easily removed with non excisional debridement during clean up / washing. L sacrum extending into L lower buttocks erythematous ,macerated with scattered areas of yellow slough through out base of wound.Wound is malodorous. Small amt seropurulent exudate noted.Periwound noted to have darker skin tone that is indurated. L ischium darker than is normal skin tone and indurated with scattered open wound exuding small amt serous exudate. Incontinence associated dermatitis noted to perineum and medial aspects of both upper thigh.Skin is erythematous and denuded. Pt presented on admission in grossly unkempt state. Full thickness pressure injury to sacrum extending to R and L ischial regions.(L)18cm x (W)14cm. Sacral pressure injury measures(L)6cm x (W)8cm x (D)0.4cm. Scattered slough at base of wound. Muscle is palpable. Wound is now viable. Full thickness wounds R and L buttocks with scattered slough. Non-blanchable erythema with additional skin erosions periwound. Moisture Intertrigo noted to bilat breasts folds. abd folds and bilat groin areas. Skin is dry dry and flaky to both AKA stumps. Small partial thickness wound noted to L AKA (L)0.4cm x (W)0.4cm. Base of wound is moist and viable. Wound cleaned at bedside and non-excisional debridement performed of sloth. Underlying tissue fairly healthy. The is now a stage IV sacral decubitus ulcer in the central portion right above the coccyx with palpable musculature. Wound is deteriorated since last admission. Tx.Plan: Cleanse wound Sacrum with saline. Apply Therahoney to Sacrum,R and L buttocks. Apply Moisture Barrier Paste periwound. Cover with Optifoam drsg Daily and prn. Apply Moisture Barrier Paste to folds of both breasts,abd folds ,and bilat groin areas with each incontinence care. Apply Cavilon Skin Barrier to L AKA daily. Reposition at least every 2hours or as tolerated. Off-load heels with pillow. APM/TIAGO mattress overlay. (2) Sepsis Assessment & Plan: 84-year-old female with hypotension, tachycardia, leukocytosis, abnormal labs. Currently in intensive care unit line to be removed today will monitor On IV antibiotics as per infectious disease Trend labs We will follow with recommendations (3) GI bleed Assessment & Plan: Noted to have hematemesis while in nursing facility. No acute episode of hematemesis at this time stool is noted to be fairly dark Appreciate GI input (4) G tube feedings Assessment & Plan: DAILY ESTIMATED NEEDS: Needs based on ESRD/HD, wound/ 55kg adj for BL AKA 30-35 kcals/kg 1114-5845 total kcals 1.25-1.8 g protein/kg 69-99 g total protein 20-25 mL/kg 1257-4628 total fluid mLs NUTRITION DIAGNOSIS: * Increased kcal/pro intake needs R/T renal dysfunction, wound healing as evidenced by ESRD dx, on HD. admitted w/ advanced wounds including full thickness wounds x3, refer to WC maria elena (CURRENT TF: Glucerna 1.2 @55) ENTERAL NUTRITION RECOMMENDATIONS: Nepro @ 40ml/hr x 24 hrs + Prosource x1 daily to provide 960ml, 1728kcal, 78g + 11g pro, 698ml free water * WITH HEMODYNAMIC STABILITY, resume TF * Initiate Nepro @ 20ml/hr x 6 hrs, advance 10ml q 4-6 hrs as tolerated to goal. * HOB over 30 degrees/ water flush per MD ADDITIONAL RECOMMENDATIONS: * Calibrated dry wt post HD * Wound healing: add Nephrovite 1 tab QD - Add MAX BID - Add ZnSO4 220mg daily x10 days * Trophic feeds when on pressor support * Monitor Willian Avila Jun 20, 2019 12:00
--- NOTE | 2019-06-20 12:03 | Operative Note - PDOC ---
Operative Note Operative Note Date of Operation/Procedure: Jun 20, 2019 Pre-op Diagnosis: sepsis, febrile, leukocytosis. Procedure: removal of right femoral central venous catheter Post-op Diagnosis: same as pre-op Surgeon: devan Anesthesia: MAC, other Specimen: yes Estimated Blood Loss: none Implant(s) used?: No Indications for Procedure 84F with right femoral central venous catheter place on admission for care. long discussion with ID who believes possible source of infection and line should be removed. removal indicated and recommended. Description of Procedure Patient was made comfortable at the bedside. The right groin dressings were removed. The line was identified. The sutures for the line were removed. Following this the catheter was removed while pressure was held on the femoral right femoral vein. The tip of the catheter was sent for culture. Pressure was held for approximately 5 minutes of good hemostasis noted. Wound site was cleaned and dressings were applied. Patient told procedure well. Discussed with nursing staff to monitor wound for potential bleeding and call if any issues. Willian Machado Jun 20, 2019 12:03
[2019-06-20] MEDS ORDERED: LORazepam Inj 2mg/ml 1ml IV PRN (13:45)
[2019-06-20] MEDS ORDERED: Morphine Sulfate 4mg/ml Inj (IV USE ONLY) IVP PRN (13:45)
[2019-06-20] MEDS ORDERED: Acetaminophen 650mg/20.3ml GT PRN (13:45)
[2019-06-20] MEDS ORDERED: Albuterol/Ipratropium 3ml neb HHN PRN (13:45)
[2019-06-20] MEDS ORDERED: Meropenem 500 MG in NS 55 ML IVPB SCH (15:00)
[2019-06-20 16:00] VITALS: BP 109/55
--- NOTE | 2019-06-20 16:35 | Nephrology Progress Note ---
Assessment/Plan Problem List: (1) ESRD (end stage renal disease) on dialysis (2) Septic shock (3) GI bleed (4) Decubitus skin ulcer (5) G tube feedings (6) DM (diabetes mellitus) (7) HTN (hypertension) Assessment ESRD Hematemesis Decubs Anemia Leukocytosis fever / Sepsis / shock h/o Pancreatitis h/o DM & HTN Plan HD next 06/20 transfused one unit Check Lipase Keep BP above 100 syst per consultants Subjective ROS Limited/Unobtainable: No Constitutional: Reports: malaise Objective Objective Last 24 Hour Vital Signs Date Time Temp Pulse Resp B/P (MAP) Pulse Ox O2 Delivery O2 Flow Rate FiO2 06/20/19 12:00 98.2 86 20 123/53 (76) 100 06/20/19 09:00 Room Air 06/20/19 08:00 94 06/20/19 08:00 98.4 95 18 94/43 (60) 97 06/20/19 04:00 98.6 92 17 131/56 (81) 98 06/20/19 04:00 90 06/20/19 00:00 98.2 90 18 136/50 (78) 99 06/20/19 00:00 91 06/19/19 21:50 96 Room Air 21 06/19/19 21:50 99 20 96 Room Air 21 06/19/19 21:00 Room Air 06/19/19 20:00 98.1 91 18 109/61 (77) 98 06/19/19 20:00 93 Intake and Output 06/19/19 06/20/19 18:59 06:59 Intake Total 512.5 ml Balance 512.5 ml Intake Oral 0 ml IV Total 512.5 ml # Voids 7 # Bowel Movements 4 Laboratory Tests 06/20/19 07:05: White Blood Count 8.2, Red Blood Count 3.01L, Hemoglobin 8.8L, Hematocrit 27.6L , Mean Corpuscular Volume 92, Mean Corpuscular Hemoglobin 29.4, Mean Corpuscular Hemoglobin Concent 32.1, Red Cell Distribution Width 16.9H, Platelet Count 188, Mean Platelet Volume 7.0, Neutrophils (%) (Auto) 79.1H, Lymphocytes (%) (Auto) 9.4L, Monocytes (%) (Auto) 6.5, Eosinophils (%) (Auto) 4.6H, Basophils (%) (Auto) 0.3, Sodium Level 141, Potassium Level 4.0, Chloride Level 106, Carbon Dioxide Level 25, Anion Gap 10, Blood Urea Nitrogen 41H, Creatinine 6.9H, Estimat Glomerular Filtration Rate , Glucose Level 113H, Calcium Level 9.1 Height (Feet): 3 Height (Inches): 0.00 Weight (Pounds): 188 General Appearance: no apparent distress Objective no change Matthew Rich MD Jun 20, 2019 16:35
--- NOTE | 2019-06-20 17:13 | Cardiology Report ---
APPROVED REPORT EXAM: Two-dimensional and M-mode echocardiogram with Doppler and color Doppler. INDICATION S.O.B M-Mode DIMENSIONS IVSd0.9 (0.7-1.1cm)Left Atrium (MM)3.8 (1.6-4.0cm) LVDd5.0 (3.5-5.6cm)Aortic Root3.1 (2.0-3.7cm) PWd1.3 (0.7-1.1cm)Aortic Cusp Exc.1.2 (1.5-2.0cm) IVSs1.6 cm LVDs3.1 (2.5-4.0cm) PWs1.4 cm Technically difficult study due to pt's contracted arm . Normal left ventricular chamber size, systolic function and wall motion to extent visualized. Left ventricular ejection fraction estimated to be 60%. Mild left ventricular hypertrophy . Anterior Echo-free space, may be due to pericardial fat or effusion. Mild left atrial enlargement . Right cardiac chamber sizes are within normal limits. Aortic valve calcification with decreased cusp excursion c/w aortic stenosis. Thickened mitral valve leaflets with normal excursion. Mitral annulus and aortic root calcification. Normal pulmonic valve structure. Normal tricuspid valve structure. IVC at normal size with slightly physiologic collapse. A color flow and spectral Doppler study was performed and revealed: No aortic insufficiency. Peak aortic valve gradient of 21 mm Hg and a mean of 11 mmHg. Aortic valve area 1.6 cm2 calculated by continuity equation. Moderate mitral regurgitation. Mitral diastolic velocities suggest reduced left ventricular relaxation c/w mild LV diastolic dysfunction (Grade I ) Mild tricuspid regurgitation. Tricuspid systolic velocities suggests peak right ventricular systolic pressure of 38mmHg,consistent with mild pulmonary hypertension. Pulmonic regurgitation present.
--- NOTE | 2019-06-20 17:30 | Cardiac Electrophysiology PN ---
Assessment/Plan Assessment/Plan 1. S/P septic shock. Blood pressure is improved. Off Levophed. The patient is on IV antibiotic. Her EKG showed no acute ischemic changes. ECho Nl EF 60%. RFV line was removed. 2. End-stage renal disease, on hemodialysis. 3. Gastrointestinal bleed and anemia. S/P EGD by Dr perales Gastritis and Duodenal ulceration 4. Decubitus ulcer. 5. Hypertension 6. Diabetes. 7. Dysphagia, status post G-tube. YVES RN Subjective Subjective No CP or SOB. In SR. nonverbal. RN at bedside. Had EGD by Dr Perales that showed Gastritis and Duodenal ulceration. Transferred to [facility] Objective Last 24 Hour Vital Signs Date Time Temp Pulse Resp B/P (MAP) Pulse Ox O2 Delivery O2 Flow Rate FiO2 06/20/19 12:00 98.2 86 20 123/53 (76) 100 06/20/19 09:00 Room Air 06/20/19 08:00 94 06/20/19 08:00 98.4 95 18 94/43 (60) 97 06/20/19 04:00 98.6 92 17 131/56 (81) 98 06/20/19 04:00 90 06/20/19 00:00 98.2 90 18 136/50 (78) 99 06/20/19 00:00 91 06/19/19 21:50 96 Room Air 21 06/19/19 21:50 99 20 96 Room Air 21 06/19/19 21:00 Room Air 06/19/19 20:00 98.1 91 18 109/61 (77) 98 06/19/19 20:00 93 Intake and Output 06/19/19 06/20/19 19:00 07:00 Intake Total 437.5 ml Balance 437.5 ml Intake Oral 0 ml IV Total 437.5 ml # Voids 7 # Bowel Movements 4 Laboratory Tests Test 06/20/19 07:05 White Blood Count 8.2 K/UL (4.8-10.8) Red Blood Count 3.01 M/UL (4.20-5.40) L Hemoglobin 8.8 G/DL (12.0-16.0) L Hematocrit 27.6 % (37.0-47.0) L Mean Corpuscular Volume 92 FL (80-99) Mean Corpuscular Hemoglobin 29.4 PG (27.0-31.0) Mean Corpuscular Hemoglobin Concent 32.1 G/DL (32.0-36.0) Red Cell Distribution Width 16.9 % (11.6-14.8) H Platelet Count 188 K/UL (150-450) Mean Platelet Volume 7.0 FL (6.5-10.1) Neutrophils (%) (Auto) 79.1 % (45.0-75.0) H Lymphocytes (%) (Auto) 9.4 % (20.0-45.0) L Monocytes (%) (Auto) 6.5 % (1.0-10.0) Eosinophils (%) (Auto) 4.6 % (0.0-3.0) H Basophils (%) (Auto) 0.3 % (0.0-2.0) Sodium Level 141 MMOL/L (136-145) Potassium Level 4.0 MMOL/L (3.5-5.1) Chloride Level 106 MMOL/L (98-107) Carbon Dioxide Level 25 MMOL/L (21-32) Anion Gap 10 mmol/L (5-15) Blood Urea Nitrogen 41 mg/dL (7-18) H Creatinine 6.9 MG/DL (0.55-1.30) H Estimat Glomerular Filtration Rate mL/min (>60) Glucose Level 113 MG/DL (74-106) H Calcium Level 9.1 MG/DL (8.5-10.1) Microbiology Date/Time Source Procedure Growth Status 06/18/19 16:30 Blood Blood Culture - Preliminary NO GROWTH AFTER 24 HOURS Resulted 06/18/19 16:15 Blood Blood Culture - Preliminary NO GROWTH AFTER 24 HOURS Resulted 06/17/19 22:00 Blood Blood Culture - Preliminary NO GROWTH AFTER 48 HOURS Resulted 06/17/19 21:45 Blood Blood Culture - Preliminary NO GROWTH AFTER 48 HOURS Resulted 06/18/19 18:42 Sputum Induced AFB Specimen Processing Tissue - Final Resulted 06/18/19 18:42 Sputum Induced Acid Fast Bacilli Smear - Final Resulted 06/18/19 18:42 Sputum Induced Acid Fast Bacilli Culture Pending Resulted Objective HEAD AND NECK: Shows no JVD. LUNGS: Coarse rhonchi. CARDIOVASCULAR: Regular S1 and S2 with no gallop. ABDOMEN: Soft. G-tube. EXTREMITIES: Bilateral above-knee amputation. She has a triple-lumen in the right femoral area and dialysis access in the right arm. Will Osborne MD Jun 20, 2019 17:30
[2019-06-20] MEDS: Ertapenem (INVanz) 1gm Inj IM SCH (18:02)
[2019-06-20 19:59] VITALS: BP 128/59
[2019-06-20] MEDS ORDERED: Dyna-Hex 2% Top Sol 2oz TOPIC SCH (20:00)
--- NOTE | 2019-06-20 22:33 | Infectious Diseases Prog Note ---
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 sputum for AFB smear x 3 is negative so far , and PCR MTB is negative , with negative T spot. off air born isolation . doubt TB (2) Decubitus skin ulcer Assessment & Plan: with maceration and necrosis , possibly infected, had surgical eval , already on wide spectrum antibiotics , keep off loading with local wound care as needed as per hospital protocol (3) Sepsis Assessment & Plan: with shock due to staphylococcus epidermidis with fever, source most likely sacral/buttock pressure wounds . continue zyvox orally and switch meropenem to ertapenem IM , since no IV access . stool for C diff is negative . echo transthoracic showed no vegetations . repeated blood culture x 4 is negative so far which confirm clearance. will need two weeks of antibiotics therapy . EOT 07/01/19 (4) GI bleed Assessment & Plan: monitor H/H , transfuse as needed, GI eval for source control (5) ESRD (end stage renal disease) on dialysis Assessment & Plan: continue HD as per renal , antibiotics renally dosed as per pharmacy (6) Anemia Assessment & Plan: due to the above , transfuse blood as needed, GI eval for source control (7) Fever Assessment & Plan: while on zyvox and meropenem, suspect femoral line related , improved after removing femoral line today , repeated blood culture is negative x4 which confirm clearance Subjective ROS Limited/Unobtainable: Yes Allergies: Coded Allergies: GABAPENTIN (Unverified Allergy, Unknown, 06/14/19) Subjective she was resting in bed in ICU, quiet, nonverbal, more awake, and alert, no cough or hemoptysis today, spiked fever again today , and was hypotensive Objective Vital Signs Last 24 Hour Vital Signs Date Time Temp Pulse Resp B/P (MAP) Pulse Ox O2 Delivery O2 Flow Rate FiO2 06/20/19 20:10 Room Air 06/20/19 19:59 98.7 87 16 128/59 (82) 99 06/20/19 19:16 93 20 99 Room Air 21 06/20/19 19:16 99 Room Air 21 06/20/19 16:00 98.0 88 19 109/55 (73) 100 06/20/19 12:00 98.2 86 20 123/53 (76) 100 06/20/19 09:00 Room Air 06/20/19 08:00 94 06/20/19 08:00 98.4 95 18 94/43 (60) 97 06/20/19 04:00 98.6 92 17 131/56 (81) 98 06/20/19 04:00 90 06/20/19 00:00 98.2 90 18 136/50 (78) 99 06/20/19 00:00 91 Height (Feet): 3 Height (Inches): 0.00 Weight (Pounds): 188 General Appearance: WD/WN, no acute distress HEENT: normocephalic, atraumatic, anicteric, mucous membranes moist, PERRL Respiratory/Chest: chest wall non-tender, lungs clear, normal breath sounds, no respiratory distress, no accessory muscle use Cardiovascular: normal peripheral pulses, normal rate, regular rhythm, no gallop/murmur, no JVD Abdomen: normal bowel sounds, soft, non tender, no organomegaly, non distended , no mass, no scars, other - G tube site looks OK Genitourinary: normal external genitalia Extremities: no cyanosis, no clubbing Skin: no rash, no lesions, ulcers Neurologic/Psychiatric: alert, unresponsiveness Lymphatic: no neck adenopathy, no groin adenopathy Musculoskeletal: normal muscle bulk Microbiology Date/Time Source Procedure Growth Status 06/18/19 16:30 Blood Blood Culture - Preliminary NO GROWTH AFTER 24 HOURS Resulted 06/18/19 16:15 Blood Blood Culture - Preliminary NO GROWTH AFTER 24 HOURS Resulted 06/18/19 18:42 Sputum Induced AFB Specimen Processing Tissue - Final Resulted 06/18/19 18:42 Sputum Induced Acid Fast Bacilli Smear - Final Resulted 06/18/19 18:42 Sputum Induced Acid Fast Bacilli Culture Pending Resulted Laboratory Tests Test 06/20/19 07:05 White Blood Count 8.2 K/UL (4.8-10.8) Red Blood Count 3.01 M/UL (4.20-5.40) L Hemoglobin 8.8 G/DL (12.0-16.0) L Hematocrit 27.6 % (37.0-47.0) L Mean Corpuscular Volume 92 FL (80-99) Mean Corpuscular Hemoglobin 29.4 PG (27.0-31.0) Mean Corpuscular Hemoglobin Concent 32.1 G/DL (32.0-36.0) Red Cell Distribution Width 16.9 % (11.6-14.8) H Platelet Count 188 K/UL (150-450) Mean Platelet Volume 7.0 FL (6.5-10.1) Neutrophils (%) (Auto) 79.1 % (45.0-75.0) H Lymphocytes (%) (Auto) 9.4 % (20.0-45.0) L Monocytes (%) (Auto) 6.5 % (1.0-10.0) Eosinophils (%) (Auto) 4.6 % (0.0-3.0) H Basophils (%) (Auto) 0.3 % (0.0-2.0) Sodium Level 141 MMOL/L (136-145) Potassium Level 4.0 MMOL/L (3.5-5.1) Chloride Level 106 MMOL/L (98-107) Carbon Dioxide Level 25 MMOL/L (21-32) Anion Gap 10 mmol/L (5-15) Blood Urea Nitrogen 41 mg/dL (7-18) H Creatinine 6.9 MG/DL (0.55-1.30) H Estimat Glomerular Filtration Rate mL/min (>60) Glucose Level 113 MG/DL (74-106) H Calcium Level 9.1 MG/DL (8.5-10.1) Current Medications Medications (Trade) Dose Ordered Sig/Selene Route PRN Reason Start Time Stop Time Status Last Admin Dose Admin Acetaminophen (Tylenol) 650 mg Q4H PRN GT Fever 06/20/19 13:45 07/14/19 13:44 Albuterol/ Ipratropium (Albuterol/ Ipratropium) 3 ml Q4H PRN HHN Shortness of Breath 06/20/19 13:45 06/24/19 13:44 Dextrose (Dextrose 50%) 25 ml Q30M PRN IV Hypoglycemia 06/20/19 13:45 07/18/19 20:12 Dextrose (Dextrose 50%) 50 ml Q30M PRN IV hypoglycemia 06/20/19 13:45 07/18/19 20:14 Ertapenem (INVanz) 0.5 gm Q24H IM 06/20/19 18:00 8/19 17:59 06/20/19 18:02 Hydralazine HCl (Apresoline) 25 mg Q6H PRN GT For High Blood Pressure 06/20/19 13:45 07/14/19 13:44 Insulin Aspart (NovoLOG) BEFORE MEALS AND HS SUBQ 06/20/19 16:30 07/14/19 20:59 06/20/19 20:32 Linezolid (Zyvox) 600 mg EVERY 12 HOURS GT 06/20/19 21:00 06/25/19 20:59 06/20/19 20:31 Lorazepam (Ativan 2mg/ml 1ml) 2 mg Q4H PRN IV For Anxiety 06/20/19 13:45 06/21/19 13:44 Morphine Sulfate (Morphine Sulfate) 4 mg Q4H PRN IVP For Pain 06/20/19 13:45 06/21/19 13:44 Ondansetron HCl (Zofran) 4 mg Q6H PRN IVP Nausea & Vomiting 06/20/19 13:45 07/14/19 13:44 Pantoprazole (Protonix) 40 mg EVERY 12 HOURS IVP 06/20/19 21:00 07/19/19 11:59 Zinc Sulfate (Zinc Sulfate) 220 mg DAILY GT 06/21/19 09:00 06/30/19 08:59 Morteza Castillo M.D. Jun 20, 2019 22:33
[2019-06-21] VITALS (8 sets, daily range): BP systolic 93–144; BP diastolic 43–77
[2019-06-21] MEDS: NovoLOG Insulin Flexpen SUBQ SCH ×4 (05:41→21:39)
[2019-06-21 06:25] LABS: BASOPHILS % (AUTO) 0.6 % (0.0-2.0); EOSINOPHILS % (AUTO) 6.1 % (0.0-3.0); HEMATOCRIT 28.7 % (37.0-47.0); HEMOGLOBIN 8.8 G/DL (12.0-16.0); LYMPHOCYTES % (AUTO) 14.7 % (20.0-45.0); MEAN CORPUSCULAR VOLUME 94 FL (80-99); MONOCYTES % (AUTO) 5.7 % (1.0-10.0); NEUTROPHILS % (AUTO) 72.9 % (45.0-75.0); PLATELET COUNT 189 K/UL (150-450); RED BLOOD COUNT 3.05 M/UL (4.20-5.40); RED CELL DISTRIBUTION WIDTH 17.3 % (11.6-14.8); WHITE BLOOD COUNT 6.4 K/UL (4.8-10.8)
[2019-06-21 06:47] LABS: ALANINE AMINOTRANSFERASE < 6 U/L (12-78); ALBUMIN/GLOBULIN RATIO 0.5 (1.0-2.7); ALKALINE PHOSPHATASE 91 U/L (46-116); ANION GAP 12 mmol/L (5-15); ASPARTATE AMINO TRANSFERASE 20 U/L (15-37); BILIRUBIN,TOTAL 0.7 MG/DL (0.2-1.0); BLOOD UREA NITROGEN 47 mg/dL (7-18); CALCIUM 9.1 MG/DL (8.5-10.1); CARBON DIOXIDE 23 MMOL/L (21-32); CHLORIDE 107 MMOL/L (98-107); CREATININE 7.9 MG/DL (0.55-1.30); PHOSPHORUS 5.5 MG/DL (2.5-4.9); POTASSIUM 3.8 MMOL/L (3.5-5.1); SODIUM 142 MMOL/L (136-145)
[2019-06-21] MEDS: Zinc Sulfate 220mg cap GT SCH (08:44)
--- NOTE | 2019-06-21 08:58 | General Progress Note ---
Assessment/Plan Status: stable, unchanged Assessment/Plan: 1. Septic Shock - improved. off pressor and doing well. Cont IV Abx and D/C planning to [facility] today. In Med surg. 2. ESRD on HD - on HD that will happen today. 3. Sacral pressure ulcer - surgery is following. 4. Upper GI bleed - H/H currently stable. s/p One unit of PRBC. EGD showed Gastritis and nonbleeding duodenal ulcer. 5. Sepsis - cont IV Abx. ID following the patient. blood cultures showed staph Epidermatous. 6. HLD - cont home meds. 7. Gout - cont Allopurinol 8. H/O PVD 9. H/O DVT 10. DM II - cont SSI. 11. HTN - off meds due to septic shock. 12. 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 Subjective Date patient seen: Jun 21, 2019 Time patient seen: 08:45 Constitutional: Reports: no symptoms HEENT: Reports: no symptoms Cardiovascular: Reports: no symptoms Respiratory: Reports: no symptoms Gastrointestinal/Abdominal: Reports: no symptoms Genitourinary: Reports: no symptoms Neurologic/Psychiatric: Reports: no symptoms Endocrine: Reports: no symptoms Hematologic/Lymphatic: Reports: anemia Allergies: Coded Allergies: GABAPENTIN (Unverified Allergy, Unknown, 06/14/19) Subjective Patient is in Med Surg. Afebrile and improved. EGD showed duodenal ulcer, nonbleeding and gastritis. she is ESRD on HD. Objective Last 24 Hour Vital Signs Date Time Temp Pulse Resp B/P (MAP) Pulse Ox O2 Delivery O2 Flow Rate FiO2 06/21/19 07:09 99 Room Air 21 06/21/19 07:09 94 18 99 Room Air 06/21/19 04:00 99.0 87 18 129/61 (83) 99 06/21/19 00:00 98.6 92 16 144/77 (99) 96 06/20/19 20:10 Room Air 06/20/19 19:59 98.7 87 16 128/59 (82) 99 06/20/19 19:16 93 20 99 Room Air 21 06/20/19 19:16 99 Room Air 21 06/20/19 16:00 98.0 88 19 109/55 (73) 100 06/20/19 12:00 98.2 86 20 123/53 (76) 100 06/20/19 09:00 Room Air Intake and Output 06/20/19 06/21/19 19:00 07:00 Intake Total 340 ml 840 ml Balance 340 ml 840 ml Free Water 60 ml 360 ml Tube Feeding 280 ml 480 ml # Bowel Movements 2 Laboratory Tests 06/21/19 05:47: White Blood Count 6.4, Red Blood Count 3.05L, Hemoglobin 8.8L, Hematocrit 28.7L , Mean Corpuscular Volume 94, Mean Corpuscular Hemoglobin 28.9, Mean Corpuscular Hemoglobin Concent 30.7L, Red Cell Distribution Width 17.3H, Platelet Count 189, Mean Platelet Volume 6.2L, Neutrophils (%) (Auto) 72.9, Lymphocytes (%) (Auto) 14.7L, Monocytes (%) (Auto) 5.7, Eosinophils (%) (Auto) 6.1H, Basophils (%) (Auto) 0.6, Sodium Level 142, Potassium Level 3.8, Chloride Level 107, Carbon Dioxide Level 23, Anion Gap 12, Blood Urea Nitrogen 47H, Creatinine 7.9H, Estimat Glomerular Filtration Rate , Glucose Level 64L, Calcium Level 9.1, Phosphorus Level 5.5H, Magnesium Level 2.4, Total Bilirubin 0.7, Aspartate Amino Transf (AST/SGOT) 20, Alanine Aminotransferase (ALT/SGPT) < 6L, Alkaline Phosphatase 91, Total Protein 6.4, Albumin 2.0L, Globulin 4.4, Albumin/Globulin Ratio 0.5L Height (Feet): 3 Height (Inches): 0.00 Weight (Pounds): 183 General Appearance: no apparent distress EENT: normal ENT inspection Neck: non-tender, supple Cardiovascular: normal rate, regular rhythm Respiratory/Chest: chest wall non-tender, lungs clear, normal breath sounds Abdomen: normal bowel sounds, non tender, soft Extremities: other - bilateral above the knee amputation Neurologic: responsive Skin: warm/dry Pam Alcantar MD Jun 21, 2019 08:58
[2019-06-21] MEDS ORDERED: Zinc Sulfate 220mg cap GT SCH (09:00)
[2019-06-21] MEDS: Pantoprazole Inj IVP SCH (09:00)
--- NOTE | 2019-06-21 09:03 | Diagnostic Imaging Report ---
APPROVED REPORT CPT Code: 09406 Present Symptoms Shortness of breath Comments: Hx of amputaion ( bilateral above the knee) Technically difficult study due to a line in Right (CFV) and left bandage(CFV). BILATERAL: Imaging reveals a patent deep venous system bilaterally. There is no evidence of thrombus within the common femoral to mid superficial femoral veins. The greater saphenous veins are within normal limits. Doppler indicates normal spontaneous flow within these segments.
--- NOTE | 2019-06-21 10:17 | GI Progress Note ---
Assessment/Plan Problems: (1) GI bleed ICD Codes: K92.2 - Gastrointestinal hemorrhage, unspecified SNOMED: 11845881 (2) Anemia due to chronic kidney disease ICD Codes: N18.9 - Chronic kidney disease, unspecified; D63.1 - Anemia in chronic kidney disease SNOMED: 539710491 (3) Septic shock ICD Codes: A41.9 - Sepsis, unspecified organism; R65.21 - Severe sepsis with septic shock SNOMED: 45428113 (4) G tube feedings ICD Codes: Z93.1 - Gastrostomy status SNOMED: 005440298, 483537759, 115221079 Status: unchanged Status Narrative Discussed with Dr. Perales. Assessment/Plan SUMMARY OF FINDINGS: 1. Medium-sized hiatal hernia. 2. Gastritis, status post biopsy. 3. Duodenal ulceration without any evidence of active bleeding or any visible vessel or adherent clot. RECOMMENDATIONS: Resume tube feeding. Start the patient on Prevacid per G-tube 30 mg daily. Monitor hemoglobin and hematocrit, transfuse as needed. Monitor labs. The patient was seen and examined at bedside and all new and available data was reviewed in the patients chart. I agree with the above findings, impression and plan. (Patient seen earlier today. Signature stamp does not reflect patient encounter time.). - Ezequiel Perales MD Subjective Subjective limited Objective Last 24 Hour Vital Signs Date Time Temp Pulse Resp B/P (MAP) Pulse Ox O2 Delivery O2 Flow Rate FiO2 06/21/19 07:09 99 Room Air 21 06/21/19 07:09 94 18 99 Room Air 21 06/21/19 04:00 99.0 87 18 129/61 (83) 99 06/21/19 00:00 98.6 92 16 144/77 (99) 96 06/20/19 20:10 Room Air 06/20/19 19:59 98.7 87 16 128/59 (82) 99 06/20/19 19:16 93 20 99 Room Air 21 06/20/19 19:16 99 Room Air 21 06/20/19 16:00 98.0 88 19 109/55 (73) 100 06/20/19 12:00 98.2 86 20 123/53 (76) 100 Intake and Output 06/20/19 06/21/19 19:00 07:00 Intake Total 340 ml 840 ml Balance 340 ml 840 ml Free Water 60 ml 360 ml Tube Feeding 280 ml 480 ml # Bowel Movements 2 Laboratory Tests Test 06/21/19 05:47 White Blood Count 6.4 K/UL (4.8-10.8) Red Blood Count 3.05 M/UL (4.20-5.40) L Hemoglobin 8.8 G/DL (12.0-16.0) L Hematocrit 28.7 % (37.0-47.0) L Mean Corpuscular Volume 94 FL (80-99) Mean Corpuscular Hemoglobin 28.9 PG (27.0-31.0) Mean Corpuscular Hemoglobin Concent 30.7 G/DL (32.0-36.0) L Red Cell Distribution Width 17.3 % (11.6-14.8) H Platelet Count 189 K/UL (150-450) Mean Platelet Volume 6.2 FL (6.5-10.1) L Neutrophils (%) (Auto) 72.9 % (45.0-75.0) Lymphocytes (%) (Auto) 14.7 % (20.0-45.0) L Monocytes (%) (Auto) 5.7 % (1.0-10.0) Eosinophils (%) (Auto) 6.1 % (0.0-3.0) H Basophils (%) (Auto) 0.6 % (0.0-2.0) Sodium Level 142 MMOL/L (136-145) Potassium Level 3.8 MMOL/L (3.5-5.1) Chloride Level 107 MMOL/L (98-107) Carbon Dioxide Level 23 MMOL/L (21-32) Anion Gap 12 mmol/L (5-15) Blood Urea Nitrogen 47 mg/dL (7-18) H Creatinine 7.9 MG/DL (0.55-1.30) H Estimat Glomerular Filtration Rate mL/min (>60) Glucose Level 64 MG/DL (74-106) L Calcium Level 9.1 MG/DL (8.5-10.1) Phosphorus Level 5.5 MG/DL (2.5-4.9) H Magnesium Level 2.4 MG/DL (1.8-2.4) Total Bilirubin 0.7 MG/DL (0.2-1.0) Aspartate Amino Transf (AST/SGOT) 20 U/L (15-37) Alanine Aminotransferase (ALT/SGPT) < 6 U/L (12-78) L Alkaline Phosphatase 91 U/L (46-116) Total Protein 6.4 G/DL (6.4-8.2) Albumin 2.0 G/DL (3.4-5.0) L Globulin 4.4 g/dL Albumin/Globulin Ratio 0.5 (1.0-2.7) L Height (Feet): 3 Height (Inches): 0.00 Weight (Pounds): 183 General Appearance: no apparent distress Cardiovascular: normal rate Respiratory/Chest: normal breath sounds, no respiratory distress Abdominal Exam: normal bowel sounds, non tender, soft Extremities: non-tender Lidia Recio NP Jun 21, 2019 10:17
--- NOTE | 2019-06-21 11:05 | Nephrology Progress Note ---
Assessment/Plan Problem List: (1) ESRD (end stage renal disease) on dialysis (2) Septic shock (3) GI bleed (4) Decubitus skin ulcer (5) G tube feedings (6) DM (diabetes mellitus) (7) HTN (hypertension) Assessment ESRD Hematemesis Decubs Anemia Leukocytosis fever / Sepsis / shock h/o Pancreatitis h/o DM & HTN Plan HD 06/20 not done as patient couldnt be canulated by dialysis nurse- will retry today transfused one unit Check Lipase Keep BP above 100 syst per consultants Subjective ROS Limited/Unobtainable: No Constitutional: Reports: malaise Objective Objective Last 24 Hour Vital Signs Date Time Temp Pulse Resp B/P (MAP) Pulse Ox O2 Delivery O2 Flow Rate FiO2 06/21/19 09:00 Room Air 06/21/19 08:00 98.1 80 16 93/44 (60) 96 06/21/19 07:09 99 Room Air 21 06/21/19 07:09 94 18 99 Room Air 21 06/21/19 04:00 99.0 87 18 129/61 (83) 99 06/21/19 00:00 98.6 92 16 144/77 (99) 96 06/20/19 20:10 Room Air 06/20/19 19:59 98.7 87 16 128/59 (82) 99 06/20/19 19:16 93 20 99 Room Air 21 06/20/19 19:16 99 Room Air 21 06/20/19 16:00 98.0 88 19 109/55 (73) 100 06/20/19 12:00 98.2 86 20 123/53 (76) 100 Intake and Output 06/20/19 06/21/19 19:00 07:00 Intake Total 340 ml 840 ml Balance 340 ml 840 ml Free Water 60 ml 360 ml Tube Feeding 280 ml 480 ml # Bowel Movements 2 Laboratory Tests 06/21/19 05:47: White Blood Count 6.4, Red Blood Count 3.05L, Hemoglobin 8.8L, Hematocrit 28.7L , Mean Corpuscular Volume 94, Mean Corpuscular Hemoglobin 28.9, Mean Corpuscular Hemoglobin Concent 30.7L, Red Cell Distribution Width 17.3H, Platelet Count 189, Mean Platelet Volume 6.2L, Neutrophils (%) (Auto) 72.9, Lymphocytes (%) (Auto) 14.7L, Monocytes (%) (Auto) 5.7, Eosinophils (%) (Auto) 6.1H, Basophils (%) (Auto) 0.6, Sodium Level 142, Potassium Level 3.8, Chloride Level 107, Carbon Dioxide Level 23, Anion Gap 12, Blood Urea Nitrogen 47H, Creatinine 7.9H, Estimat Glomerular Filtration Rate , Glucose Level 64L, Calcium Level 9.1, Phosphorus Level 5.5H, Magnesium Level 2.4, Total Bilirubin 0.7, Aspartate Amino Transf (AST/SGOT) 20, Alanine Aminotransferase (ALT/SGPT) < 6L, Alkaline Phosphatase 91, Total Protein 6.4, Albumin 2.0L, Globulin 4.4, Albumin/Globulin Ratio 0.5L Height (Feet): 3 Height (Inches): 0.00 Weight (Pounds): 183 General Appearance: no apparent distress Objective no change Matthew Rich MD Jun 21, 2019 11:05
--- NOTE | 2019-06-21 11:29 | Pulmonology Progress Note ---
Assessment/Plan Problems: (1) Septic shock (2) GI bleed (3) Anemia (4) Decubitus skin ulcer (5) ESRD (end stage renal disease) on dialysis (6) DM (diabetes mellitus) (7) G tube feedings (8) HTN (hypertension) Assessment/Plan HD in process hear rate, bp stable h/h stable EGD done, tolerating feeding check electrolytes med/surg dc planning? Subjective ROS Limited/Unobtainable: No Constitutional: Reports: no symptoms HEENT: Repors: no symptoms Respiratory: Reports: no symptoms Allergies: Coded Allergies: GABAPENTIN (Unverified Allergy, Unknown, 06/14/19) Objective Last 24 Hour Vital Signs Date Time Temp Pulse Resp B/P (MAP) Pulse Ox O2 Delivery O2 Flow Rate FiO2 06/21/19 09:00 Room Air 06/21/19 08:00 98.1 80 16 93/44 (60) 96 06/21/19 07:09 99 Room Air 21 06/21/19 07:09 94 18 99 Room Air 21 06/21/19 04:00 99.0 87 18 129/61 (83) 99 06/21/19 00:00 98.6 92 16 144/77 (99) 96 06/20/19 20:10 Room Air 06/20/19 19:59 98.7 87 16 128/59 (82) 99 06/20/19 19:16 93 20 99 Room Air 21 06/20/19 19:16 99 Room Air 21 06/20/19 16:00 98.0 88 19 109/55 (73) 100 06/20/19 12:00 98.2 86 20 123/53 (76) 100 Intake and Output 06/20/19 06/21/19 19:00 07:00 Intake Total 340 ml 840 ml Balance 340 ml 840 ml Free Water 60 ml 360 ml Tube Feeding 280 ml 480 ml # Bowel Movements 2 General Appearance: WD/WN HEENT: normocephalic, atraumatic Breasts: no masses Cardiovascular: normal peripheral pulses, regular rhythm Abdomen: normal bowel sounds, soft, non tender Genitourinary: normal external genitalia Extremities: no clubbing Skin: no rash Microbiology Date/Time Source Procedure Growth Status 06/18/19 16:30 Blood Blood Culture - Preliminary NO GROWTH AFTER 48 HOURS Resulted 06/18/19 16:15 Blood Blood Culture - Preliminary NO GROWTH AFTER 48 HOURS Resulted 06/18/19 18:42 Sputum Induced AFB Specimen Processing Tissue - Final Resulted 06/18/19 18:42 Sputum Induced Acid Fast Bacilli Smear - Final Resulted 06/18/19 18:42 Sputum Induced Acid Fast Bacilli Culture Pending Resulted 06/20/19 10:00 Catheter Site Catheter Tip Culture - Preliminary NO GROWTH Resulted Laboratory Tests 06/21/19 05:47: White Blood Count 6.4, Red Blood Count 3.05L, Hemoglobin 8.8L, Hematocrit 28.7L , Mean Corpuscular Volume 94, Mean Corpuscular Hemoglobin 28.9, Mean Corpuscular Hemoglobin Concent 30.7L, Red Cell Distribution Width 17.3H, Platelet Count 189, Mean Platelet Volume 6.2L, Neutrophils (%) (Auto) 72.9, Lymphocytes (%) (Auto) 14.7L, Monocytes (%) (Auto) 5.7, Eosinophils (%) (Auto) 6.1H, Basophils (%) (Auto) 0.6, Sodium Level 142, Potassium Level 3.8, Chloride Level 107, Carbon Dioxide Level 23, Anion Gap 12, Blood Urea Nitrogen 47H, Creatinine 7.9H, Estimat Glomerular Filtration Rate , Glucose Level 64L, Calcium Level 9.1, Phosphorus Level 5.5H, Magnesium Level 2.4, Total Bilirubin 0.7, Aspartate Amino Transf (AST/SGOT) 20, Alanine Aminotransferase (ALT/SGPT) < 6L, Alkaline Phosphatase 91, Total Protein 6.4, Albumin 2.0L, Globulin 4.4, Albumin/Globulin Ratio 0.5L Current Medications Medications (Trade) Dose Ordered Sig/Selene Route PRN Reason Start Time Stop Time Status Last Admin Dose Admin Acetaminophen (Tylenol) 650 mg Q4H PRN GT Fever 06/20/19 13:45 07/14/19 13:44 Albuterol/ Ipratropium (Albuterol/ Ipratropium) 3 ml Q4H PRN HHN Shortness of Breath 06/20/19 13:45 06/24/19 13:44 Dextrose (Dextrose 50%) 25 ml Q30M PRN IV Hypoglycemia 06/20/19 13:45 07/18/19 20:12 Dextrose (Dextrose 50%) 50 ml Q30M PRN IV hypoglycemia 06/20/19 13:45 07/18/19 20:14 Ertapenem (INVanz) 0.5 gm Q24H IM 06/20/19 18:00 07/01/19 23:00 06/20/19 18:02 Hydralazine HCl (Apresoline) 25 mg Q6H PRN GT For High Blood Pressure 06/20/19 13:45 07/14/19 13:44 Insulin Aspart (NovoLOG) BEFORE MEALS AND HS SUBQ 06/20/19 16:30 07/14/19 20:59 06/20/19 20:32 Lansoprazole (Prevacid) 30 mg BID GT 06/21/19 18:00 07/21/19 17:59 UNV Linezolid (Zyvox) 600 mg EVERY 12 HOURS GT 06/20/19 21:00 07/01/19 23:00 06/21/19 08:44 Lorazepam (Ativan 2mg/ml 1ml) 2 mg Q4H PRN IV For Anxiety 06/20/19 13:45 06/21/19 13:44 Midodrine (Pro-Amatine) 10 mg THREE TIMES A DAY GT 06/21/19 13:00 07/21/19 12:59 UNV Ondansetron HCl (Zofran) 4 mg Q6H PRN IVP Nausea & Vomiting 06/20/19 13:45 07/14/19 13:44 Zinc Sulfate (Zinc Sulfate) 220 mg DAILY GT 06/21/19 09:00 06/30/19 08:59 06/21/19 08:44 Rosemary Lui MD Jun 21, 2019 11:29
[2019-06-21] MEDS ORDERED: ZINC SULFATE220 M1 GT (12:46)
[2019-06-21] MEDS ORDERED: PRO-AMATINE10 MG GT (12:46)
[2019-06-21] MEDS ORDERED: INVANZ1 G1 IM (12:46)
[2019-06-21] MEDS ORDERED: LANSOPRAZOLE30 MG GT (12:46)
[2019-06-21] MEDS ORDERED: ZYVOX600 MG JT (12:46)
[2019-06-21] MEDS ORDERED: DUONEB 0.5-3(2.53 ML HHN (12:46)
[2019-06-21] MEDS ORDERED: ZOFRAN 4 MG4 MG/2 ML IVP (12:46)
[2019-06-21] MEDS: Midodrine 10mg tab GT SCH ×2 (12:49→18:54)
--- NOTE | 2019-06-21 15:32 | Surgery Progress Note ---
Surgery Progress Note Subjective Procedure Performed removal of right femoral central venous catheter Additional Comments afebrile HD stable labs improved line out pending micro Objective Last 24 Hour Vital Signs Date Time Temp Pulse Resp B/P (MAP) Pulse Ox O2 Delivery O2 Flow Rate FiO2 06/21/19 12:49 103 129/67 (87) 06/21/19 12:29 97.9 77 17 103/58 (73) 97 06/21/19 09:00 Room Air 06/21/19 08:00 98.1 80 16 93/44 (60) 96 06/21/19 07:09 99 Room Air 21 06/21/19 07:09 94 18 99 Room Air 21 06/21/19 04:00 99.0 87 18 129/61 (83) 99 06/21/19 00:00 98.6 92 16 144/77 (99) 96 06/20/19 20:10 Room Air 06/20/19 19:59 98.7 87 16 128/59 (82) 99 06/20/19 19:16 93 20 99 Room Air 21 06/20/19 19:16 99 Room Air 21 06/20/19 16:00 98.0 88 19 109/55 (73) 100 I&O Intake and Output 06/20/19 06/21/19 19:00 07:00 Intake Total 340 ml 840 ml Balance 340 ml 840 ml Free Water 60 ml 360 ml Tube Feeding 280 ml 480 ml # Bowel Movements 2 Dressing: dry Wound: clean Cardiovascular: RSR Respiratory: clear Abdomen: soft, flat, present bowel sounds Extremities: no cyanosis Laboratory Tests Test 06/21/19 05:47 White Blood Count 6.4 K/UL (4.8-10.8) Red Blood Count 3.05 M/UL (4.20-5.40) L Hemoglobin 8.8 G/DL (12.0-16.0) L Hematocrit 28.7 % (37.0-47.0) L Mean Corpuscular Volume 94 FL (80-99) Mean Corpuscular Hemoglobin 28.9 PG (27.0-31.0) Mean Corpuscular Hemoglobin Concent 30.7 G/DL (32.0-36.0) L Red Cell Distribution Width 17.3 % (11.6-14.8) H Platelet Count 189 K/UL (150-450) Mean Platelet Volume 6.2 FL (6.5-10.1) L Neutrophils (%) (Auto) 72.9 % (45.0-75.0) Lymphocytes (%) (Auto) 14.7 % (20.0-45.0) L Monocytes (%) (Auto) 5.7 % (1.0-10.0) Eosinophils (%) (Auto) 6.1 % (0.0-3.0) H Basophils (%) (Auto) 0.6 % (0.0-2.0) Sodium Level 142 MMOL/L (136-145) Potassium Level 3.8 MMOL/L (3.5-5.1) Chloride Level 107 MMOL/L (98-107) Carbon Dioxide Level 23 MMOL/L (21-32) Anion Gap 12 mmol/L (5-15) Blood Urea Nitrogen 47 mg/dL (7-18) H Creatinine 7.9 MG/DL (0.55-1.30) H Estimat Glomerular Filtration Rate mL/min (>60) Glucose Level 64 MG/DL (74-106) L Calcium Level 9.1 MG/DL (8.5-10.1) Phosphorus Level 5.5 MG/DL (2.5-4.9) H Magnesium Level 2.4 MG/DL (1.8-2.4) Total Bilirubin 0.7 MG/DL (0.2-1.0) Aspartate Amino Transf (AST/SGOT) 20 U/L (15-37) Alanine Aminotransferase (ALT/SGPT) < 6 U/L (12-78) L Alkaline Phosphatase 91 U/L (46-116) Total Protein 6.4 G/DL (6.4-8.2) Albumin 2.0 G/DL (3.4-5.0) L Globulin 4.4 g/dL Albumin/Globulin Ratio 0.5 (1.0-2.7) L Plan Problems: (1) Decubitus skin ulcer Assessment & Plan: Pt presented on admission with multiple full thickness pressure injuries R ,L buttocks and L ischium .R sacrum extending down to lower R buttocks erythematous with multiple areas with slough,(+) maceration along edges and periwound. Wound is malodorous. Wound with sloth that easily removed with non excisional debridement during clean up / washing. L sacrum extending into L lower buttocks erythematous ,macerated with scattered areas of yellow slough through out base of wound.Wound is malodorous. Small amt seropurulent exudate noted.Periwound noted to have darker skin tone that is indurated. L ischium darker than is normal skin tone and indurated with scattered open wound exuding small amt serous exudate. Incontinence associated dermatitis noted to perineum and medial aspects of both upper thigh.Skin is erythematous and denuded. Pt presented on admission in grossly unkempt state. Full thickness pressure injury to sacrum extending to R and L ischial regions.(L)18cm x (W)14cm. Sacral pressure injury measures(L)6cm x (W)8cm x (D)0.4cm. Scattered slough at base of wound. Muscle is palpable. Wound is now viable. Full thickness wounds R and L buttocks with scattered slough. Non-blanchable erythema with additional skin erosions periwound. Moisture Intertrigo noted to bilat breasts folds. abd folds and bilat groin areas. Skin is dry dry and flaky to both AKA stumps. Small partial thickness wound noted to L AKA (L)0.4cm x (W)0.4cm. Base of wound is moist and viable. Wound cleaned at bedside and non-excisional debridement performed of slot. Underlying tissue fairly healthy. The is now a stage IV sacral decubitus ulcer in the central portion right above the coccyx with palpable musculature. Wound is deteriorated since last admission. Tx.Plan: Cleanse wound Sacrum with saline. Apply Therahoney to Sacrum,R and L buttocks. Apply Moisture Barrier Paste periwound. Cover with Optifoam drsg Daily and prn. Apply Moisture Barrier Paste to folds of both breasts,abd folds ,and bilat groin areas with each incontinence care. Apply Cavilon Skin Barrier to L AKA daily. Reposition at least every 2hours or as tolerated. Off-load heels with pillow. APM/TIAGO mattress overlay. (2) Sepsis Assessment & Plan: 84-year-old female with hypotension, tachycardia, leukocytosis, abnormal labs. Currently in intensive care unit line to be removed today will monitor On IV antibiotics as per infectious disease Trend labs We will follow with recommendations (3) GI bleed Assessment & Plan: Noted to have hematemesis while in nursing facility. No acute episode of hematemesis at this time stool is noted to be fairly dark Appreciate GI input (4) G tube feedings Assessment & Plan: DAILY ESTIMATED NEEDS: Needs based on ESRD/HD, wound/ 55kg adj for BL AKA 30-35 kcals/kg 4668-0824 total kcals 1.25-1.8 g protein/kg 69-99 g total protein 20-25 mL/kg 0286-8488 total fluid mLs NUTRITION DIAGNOSIS: * Increased kcal/pro intake needs R/T renal dysfunction, wound healing as evidenced by ESRD dx, on HD. admitted w/ advanced wounds including full thickness wounds x3, refer to WC maria elena (CURRENT TF: Glucerna 1.2 @55) ENTERAL NUTRITION RECOMMENDATIONS: Nepro @ 40ml/hr x 24 hrs + Prosource x1 daily to provide 960ml, 1728kcal, 78g + 11g pro, 698ml free water * WITH HEMODYNAMIC STABILITY, resume TF * Initiate Nepro @ 20ml/hr x 6 hrs, advance 10ml q 4-6 hrs as tolerated to goal. * HOB over 30 degrees/ water flush per MD ADDITIONAL RECOMMENDATIONS: * Calibrated dry wt post HD * Wound healing: add Nephrovite 1 tab QD - Add MAX BID - Add ZnSO4 220mg daily x10 days * Trophic feeds when on pressor support * Monitor Willian Avila Jun 21, 2019 15:32
--- NOTE | 2019-06-21 16:21 | Cardiac Electrophysiology PN ---
Assessment/Plan Assessment/Plan 1. S/P septic shock. Blood pressure is improved. Off Levophed. The patient is on IV antibiotic. Her EKG showed no acute ischemic changes. Echo Nl EF 60%. RFV line was removed. 2. End-stage renal disease, on hemodialysis. 3. Gastrointestinal bleed and anemia. S/P EGD by Dr perales Gastritis and Duodenal ulceration 4. Decubitus ulcer. 5. Hypertension 6. Diabetes. 7. Dysphagia, status post G-tube. 8. New Fever 101. DC cancelled. FU ID [email or web address] RN Subjective Subjective No CP or SOB. In SR. nonverbal. RN at bedside. Had EGD by Dr Perales that showed Gastritis and Duodenal ulceration. DC today was cancelled as had T 101 Objective Last 24 Hour Vital Signs Date Time Temp Pulse Resp B/P (MAP) Pulse Ox O2 Delivery O2 Flow Rate FiO2 06/21/19 12:49 103 129/67 (87) 06/21/19 12:29 97.9 77 17 103/58 (73) 97 06/21/19 09:00 Room Air 06/21/19 08:00 98.1 80 16 93/44 (60) 96 06/21/19 07:09 99 Room Air 21 06/21/19 07:09 94 18 99 Room Air 21 06/21/19 04:00 99.0 87 18 129/61 (83) 99 06/21/19 00:00 98.6 92 16 144/77 (99) 96 06/20/19 20:10 Room Air 06/20/19 19:59 98.7 87 16 128/59 (82) 99 06/20/19 19:16 93 20 99 Room Air 21 06/20/19 19:16 99 Room Air 21 Intake and Output 06/20/19 06/21/19 19:00 07:00 Intake Total 340 ml 840 ml Balance 340 ml 840 ml Free Water 60 ml 360 ml Tube Feeding 280 ml 480 ml # Bowel Movements 2 Laboratory Tests Test 06/21/19 05:47 White Blood Count 6.4 K/UL (4.8-10.8) Red Blood Count 3.05 M/UL (4.20-5.40) L Hemoglobin 8.8 G/DL (12.0-16.0) L Hematocrit 28.7 % (37.0-47.0) L Mean Corpuscular Volume 94 FL (80-99) Mean Corpuscular Hemoglobin 28.9 PG (27.0-31.0) Mean Corpuscular Hemoglobin Concent 30.7 G/DL (32.0-36.0) L Red Cell Distribution Width 17.3 % (11.6-14.8) H Platelet Count 189 K/UL (150-450) Mean Platelet Volume 6.2 FL (6.5-10.1) L Neutrophils (%) (Auto) 72.9 % (45.0-75.0) Lymphocytes (%) (Auto) 14.7 % (20.0-45.0) L Monocytes (%) (Auto) 5.7 % (1.0-10.0) Eosinophils (%) (Auto) 6.1 % (0.0-3.0) H Basophils (%) (Auto) 0.6 % (0.0-2.0) Sodium Level 142 MMOL/L (136-145) Potassium Level 3.8 MMOL/L (3.5-5.1) Chloride Level 107 MMOL/L (98-107) Carbon Dioxide Level 23 MMOL/L (21-32) Anion Gap 12 mmol/L (5-15) Blood Urea Nitrogen 47 mg/dL (7-18) H Creatinine 7.9 MG/DL (0.55-1.30) H Estimat Glomerular Filtration Rate mL/min (>60) Glucose Level 64 MG/DL (74-106) L Calcium Level 9.1 MG/DL (8.5-10.1) Phosphorus Level 5.5 MG/DL (2.5-4.9) H Magnesium Level 2.4 MG/DL (1.8-2.4) Total Bilirubin 0.7 MG/DL (0.2-1.0) Aspartate Amino Transf (AST/SGOT) 20 U/L (15-37) Alanine Aminotransferase (ALT/SGPT) < 6 U/L (12-78) L Alkaline Phosphatase 91 U/L (46-116) Total Protein 6.4 G/DL (6.4-8.2) Albumin 2.0 G/DL (3.4-5.0) L Globulin 4.4 g/dL Albumin/Globulin Ratio 0.5 (1.0-2.7) L Microbiology Date/Time Source Procedure Growth Status 06/18/19 16:30 Blood Blood Culture - Preliminary NO GROWTH AFTER 48 HOURS Resulted 06/18/19 18:42 Sputum Induced AFB Specimen Processing Tissue - Final Resulted 06/18/19 18:42 Sputum Induced Acid Fast Bacilli Smear - Final Resulted 06/18/19 18:42 Sputum Induced Acid Fast Bacilli Culture Pending Resulted 06/20/19 10:00 Catheter Site Catheter Tip Culture - Preliminary NO GROWTH Resulted Objective HEAD AND NECK: Shows no JVD. LUNGS: Coarse rhonchi. CARDIOVASCULAR: Regular S1 and S2 with no gallop. ABDOMEN: Soft. G-tube. EXTREMITIES: Bilateral above-knee amputation. She has a triple-lumen in the right femoral area and dialysis access in the right arm. Will Osborne MD Jun 21, 2019 16:21
[2019-06-21] MEDS: Ertapenem (INVanz) 1gm Inj IM SCH (18:41)
[2019-06-21] MEDS ORDERED: Heparin 1000 units/ml 1ml Vial INJ PRN (19:30)
--- NOTE | 2019-06-21 19:51 | Infectious Diseases Prog Note ---
Assessment/Plan Problems: (1) Fever Assessment & Plan: recurrent while on zyvox and ertapenem, S/P femoral line removal, suspect deep abscess or osteomyelitis of the pelvis bone VS fungal infection VS drug fever. will repeat blood culture and add fluconazole empirically, and order WBC indium scan to rule out any occult focus of infection , continue zyvox and ertapenem for now (2) Sepsis Assessment & Plan: with shock due to staphylococcus epidermidis with fever, source most likely sacral/buttock pressure wounds rule out underlying osteomyelitis or abscess . continue zyvox orally and ertapenem IM , since no IV access . echo transthoracic showed no vegetations . repeated blood culture x 4 is negative so far which confirm clearance. will need two weeks of antibiotics therapy if no evidence of pelvic or sacrum osteomyelitis . EOT (3) Decubitus skin ulcer Assessment & Plan: with maceration and necrosis , possibly infected, had surgical eval , already on wide spectrum antibiotics , keep off loading with local wound care as needed as per hospital protocol (4) GI bleed Assessment & Plan: monitor H/H , transfuse as needed, GI eval for source control (5) ESRD (end stage renal disease) on dialysis Assessment & Plan: continue HD as per renal , antibiotics renally dosed as per pharmacy (6) Anemia Assessment & Plan: due to the above , transfuse blood as needed, GI eval for source control (7) Cough with hemoptysis Assessment & Plan: resolved, 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 sputum for AFB smear x 3 is negative so far , and PCR MTB is negative , with negative T spot. off air born isolation . doubt TB Subjective ROS Limited/Unobtainable: Yes Allergies: Coded Allergies: GABAPENTIN (Unverified Allergy, Unknown, 06/14/19) Subjective she was resting in bed , quiet, nonverbal, awake, no cough or hemoptysis today , spiked fever later again today. Objective Vital Signs Last 24 Hour Vital Signs Date Time Temp Pulse Resp B/P (MAP) Pulse Ox O2 Delivery O2 Flow Rate FiO2 06/21/19 18:58 100.4 96 103/44 (63) 06/21/19 18:39 100.4 06/21/19 16:05 101.7 122 20 118/43 (68) 97 06/21/19 12:49 103 129/67 (87) 06/21/19 12:29 97.9 77 17 103/58 (73) 97 06/21/19 09:00 Room Air 06/21/19 08:00 98.1 80 16 93/44 (60) 96 06/21/19 07:09 99 Room Air 21 06/21/19 07:09 94 18 99 Room Air 21 06/21/19 04:00 99.0 87 18 129/61 (83) 99 06/21/19 00:00 98.6 92 16 144/77 (99) 96 06/20/19 20:10 Room Air 06/20/19 19:59 98.7 87 16 128/59 (82) 99 Height (Feet): 3 Height (Inches): 0.00 Weight (Pounds): 183 General Appearance: WD/WN, no acute distress HEENT: normocephalic, atraumatic, anicteric, mucous membranes moist, PERRL Respiratory/Chest: chest wall non-tender, lungs clear, normal breath sounds, no respiratory distress, no accessory muscle use Cardiovascular: normal peripheral pulses, normal rate, regular rhythm, no gallop/murmur, no JVD Abdomen: normal bowel sounds, soft, non tender, no organomegaly, non distended , no mass, no scars Genitourinary: normal external genitalia Extremities: no cyanosis, no clubbing Skin: no rash, no lesions, ulcers Neurologic/Psychiatric: alert, unresponsiveness Lymphatic: no neck adenopathy, no groin adenopathy Musculoskeletal: normal muscle bulk, no effusion Microbiology Date/Time Source Procedure Growth Status 06/20/19 10:00 Catheter Site Catheter Tip Culture - Preliminary NO GROWTH Resulted Laboratory Tests Test 06/21/19 05:47 White Blood Count 6.4 K/UL (4.8-10.8) Red Blood Count 3.05 M/UL (4.20-5.40) L Hemoglobin 8.8 G/DL (12.0-16.0) L Hematocrit 28.7 % (37.0-47.0) L Mean Corpuscular Volume 94 FL (80-99) Mean Corpuscular Hemoglobin 28.9 PG (27.0-31.0) Mean Corpuscular Hemoglobin Concent 30.7 G/DL (32.0-36.0) L Red Cell Distribution Width 17.3 % (11.6-14.8) H Platelet Count 189 K/UL (150-450) Mean Platelet Volume 6.2 FL (6.5-10.1) L Neutrophils (%) (Auto) 72.9 % (45.0-75.0) Lymphocytes (%) (Auto) 14.7 % (20.0-45.0) L Monocytes (%) (Auto) 5.7 % (1.0-10.0) Eosinophils (%) (Auto) 6.1 % (0.0-3.0) H Basophils (%) (Auto) 0.6 % (0.0-2.0) Sodium Level 142 MMOL/L (136-145) Potassium Level 3.8 MMOL/L (3.5-5.1) Chloride Level 107 MMOL/L (98-107) Carbon Dioxide Level 23 MMOL/L (21-32) Anion Gap 12 mmol/L (5-15) Blood Urea Nitrogen 47 mg/dL (7-18) H Creatinine 7.9 MG/DL (0.55-1.30) H Estimat Glomerular Filtration Rate mL/min (>60) Glucose Level 64 MG/DL (74-106) L Calcium Level 9.1 MG/DL (8.5-10.1) Phosphorus Level 5.5 MG/DL (2.5-4.9) H Magnesium Level 2.4 MG/DL (1.8-2.4) Total Bilirubin 0.7 MG/DL (0.2-1.0) Aspartate Amino Transf (AST/SGOT) 20 U/L (15-37) Alanine Aminotransferase (ALT/SGPT) < 6 U/L (12-78) L Alkaline Phosphatase 91 U/L (46-116) Total Protein 6.4 G/DL (6.4-8.2) Albumin 2.0 G/DL (3.4-5.0) L Globulin 4.4 g/dL Albumin/Globulin Ratio 0.5 (1.0-2.7) L Current Medications Medications (Trade) Dose Ordered Sig/Selene Route PRN Reason Start Time Stop Time Status Last Admin Dose Admin Acetaminophen (Tylenol) 650 mg Q4H PRN GT Fever 06/20/19 13:45 07/14/19 13:44 06/21/19 16:09 Albuterol/ Ipratropium (Albuterol/ Ipratropium) 3 ml Q4H PRN HHN Shortness of Breath 06/20/19 13:45 06/24/19 13:44 Dextrose (Dextrose 50%) 25 ml Q30M PRN IV Hypoglycemia 06/20/19 13:45 07/18/19 20:12 Dextrose (Dextrose 50%) 50 ml Q30M PRN IV hypoglycemia 06/20/19 13:45 07/18/19 20:14 Ertapenem (INVanz) 0.5 gm Q24H IM 06/20/19 18:00 07/01/19 23:00 06/21/19 18:41 Fluconazole (Diflucan) 200 mg DAILY ORAL 06/21/19 19:45 06/28/19 19:44 UNV Heparin Sodium (Porcine) (Heparin) 2,000 unit ONCE ONCE INJ 06/21/19 19:30 06/21/19 19:31 UNV Hydralazine HCl (Apresoline) 25 mg Q6H PRN GT For High Blood Pressure 06/20/19 13:45 07/14/19 13:44 Insulin Aspart (NovoLOG) BEFORE MEALS AND HS SUBQ 06/20/19 16:30 07/14/19 20:59 06/20/19 20:32 Lansoprazole (Prevacid) 30 mg BID GT 06/21/19 12:00 07/21/19 11:59 06/21/19 18:54 Linezolid (Zyvox) 600 mg EVERY 12 HOURS GT 06/20/19 21:00 07/01/19 23:00 06/21/19 08:44 Midodrine (Pro-Amatine) 10 mg THREE TIMES A DAY GT 06/21/19 13:00 07/21/19 12:59 06/21/19 18:54 Ondansetron HCl (Zofran) 4 mg Q6H PRN IVP Nausea & Vomiting 06/20/19 13:45 07/14/19 13:44 Zinc Sulfate (Zinc Sulfate) 220 mg DAILY GT 06/21/19 09:00 06/30/19 08:59 06/21/19 08:44 Morteza Castillo M.D. Jun 21, 2019 19:51
[2019-06-21] MEDS: Fluconazole 100mg tab GT SCH (21:24)
[2019-06-22] VITALS: BP 108/50
[2019-06-22 04:00] VITALS: BP 111/59
[2019-06-22 05:59] LABS: BASOPHILS % (AUTO) 0.6 % (0.0-2.0); EOSINOPHILS % (AUTO) 3.9 % (0.0-3.0); HEMATOCRIT 28.5 % (37.0-47.0); HEMOGLOBIN 8.8 G/DL (12.0-16.0); LYMPHOCYTES % (AUTO) 14.2 % (20.0-45.0); MEAN CORPUSCULAR VOLUME 94 FL (80-99); MONOCYTES % (AUTO) 5.5 % (1.0-10.0); NEUTROPHILS % (AUTO) 75.8 % (45.0-75.0); PLATELET COUNT 203 K/UL (150-450); RED BLOOD COUNT 3.03 M/UL (4.20-5.40); RED CELL DISTRIBUTION WIDTH 16.7 % (11.6-14.8); WHITE BLOOD COUNT 8.2 K/UL (4.8-10.8)
[2019-06-22 06:23] LABS: ALANINE AMINOTRANSFERASE 6 U/L (12-78); ALBUMIN 1.8 G/DL (3.4-5.0); ALBUMIN/GLOBULIN RATIO 0.4 (1.0-2.7); ALKALINE PHOSPHATASE 105 U/L (46-116); ANION GAP 9 mmol/L (5-15); ASPARTATE AMINO TRANSFERASE 35 U/L (15-37); BILIRUBIN,TOTAL 0.5 MG/DL (0.2-1.0); BLOOD UREA NITROGEN 36 mg/dL (7-18); CALCIUM 8.9 MG/DL (8.5-10.1); CARBON DIOXIDE 27 MMOL/L (21-32); CHLORIDE 107 MMOL/L (98-107); CREATININE 6.2 MG/DL (0.55-1.30); POTASSIUM 4.2 MMOL/L (3.5-5.1); SODIUM 143 MMOL/L (136-145)
[2019-06-22] MEDS: NovoLOG Insulin Flexpen SUBQ SCH ×4 (06:30→21:00)
[2019-06-22 08:35] VITALS: BP 134/51
[2019-06-22] MEDS: Midodrine 10mg tab GT SCH ×3 (08:43→18:00)
[2019-06-22] MEDS: Zinc Sulfate 220mg cap GT SCH (08:50)
--- NOTE | 2019-06-22 09:24 | General Progress Note ---
Assessment/Plan Status: stable, unchanged Assessment/Plan: 1. Fever - most likely due to antifungal growth. cont fluconazole and Abx for now. WBC scan pending. ID following. 2. Septic Shock - improved. off pressor and doing well. Cont Abx. Discharge canceled yesterday due to fever. In Med surg. 3. ESRD on HD - on HD 3x/wk. 4. Sacral pressure ulcer - surgery is following. 5. Upper GI bleed 2nd to duodenal ulcer - H/H currently stable. s/p One unit of PRBC. EGD showed Gastritis and nonbleeding duodenal ulcer. cont prevacid 30 mg bid. 6. Sepsis - cont IV Abx. ID following the patient. blood cultures showed staph Epidermatous. cont abx and antifungal for now. 7. HLD - cont home meds. 8. Gout - cont Allopurinol 9. H/O PVD 10. H/O DVT 11. DM II - cont SSI. 12. HTN - off meds due to septic shock. 13. 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 Subjective Date patient seen: Jun 22, 2019 Time patient seen: 09:05 Constitutional: Reports: no symptoms HEENT: Reports: no symptoms Cardiovascular: Reports: no symptoms Respiratory: Reports: no symptoms Gastrointestinal/Abdominal: Reports: no symptoms Genitourinary: Reports: no symptoms Neurologic/Psychiatric: Reports: no symptoms Endocrine: Reports: no symptoms Hematologic/Lymphatic: Reports: anemia Allergies: Coded Allergies: GABAPENTIN (Unverified Allergy, Unknown, 06/14/19) Subjective Patient is in Med Surg. She spiked fever yesterday before discharge and discharge was canceled. This morning she has low grade fever. she is ESRD on HD. Objective Last 24 Hour Vital Signs Date Time Temp Pulse Resp B/P (MAP) Pulse Ox O2 Delivery O2 Flow Rate FiO2 06/22/19 08:35 98.2 91 25 134/51 (78) 99 06/22/19 07:43 88 20 95 Room Air 21 06/22/19 04:00 99.2 82 18 111/59 (76) 06/22/19 00:00 98.6 86 18 108/50 (69) 06/21/19 22:25 Room Air 06/21/19 21:38 96 18 97 Room Air 21 06/21/19 20:00 99.2 92 20 110/48 (68) 06/21/19 18:58 100.4 96 103/44 (63) 06/21/19 18:39 100.4 06/21/19 16:05 101.7 122 20 118/43 (68) 97 06/21/19 12:49 103 129/67 (87) 06/21/19 12:29 97.9 77 17 103/58 (73) 97 Intake and Output 06/21/19 06/22/19 19:00 07:00 Intake Total 440 ml 600 ml Output Total 0 ml Balance 440 ml 600 ml Free Water 0 ml 200 ml Tube Feeding 440 ml 400 ml Hemodialysis UF 0 ml # Voids 6 # Bowel Movements 3 Laboratory Tests 06/22/19 05:10: White Blood Count 8.2, Red Blood Count 3.03L, Hemoglobin 8.8L, Hematocrit 28.5L , Mean Corpuscular Volume 94, Mean Corpuscular Hemoglobin 29.1, Mean Corpuscular Hemoglobin Concent 31.0L, Red Cell Distribution Width 16.7H, Platelet Count 203, Mean Platelet Volume 6.0L, Neutrophils (%) (Auto) 75.8H, Lymphocytes (%) (Auto) 14.2L, Monocytes (%) (Auto) 5.5, Eosinophils (%) (Auto) 3.9H, Basophils (%) (Auto) 0.6, Sodium Level 143, Potassium Level 4.2, Chloride Level 107, Carbon Dioxide Level 27, Anion Gap 9, Blood Urea Nitrogen 36H, Creatinine 6.2H, Estimat Glomerular Filtration Rate , Glucose Level 96, Calcium Level 8.9, Phosphorus Level 4.0, Magnesium Level 2.3, Total Bilirubin 0.5, Aspartate Amino Transf (AST/SGOT) 35, Alanine Aminotransferase (ALT/SGPT) 6L, Alkaline Phosphatase 105, Total Protein 6.2L, Albumin 1.8L, Globulin 4.4, Albumin/Globulin Ratio 0.4L Height (Feet): 3 Height (Inches): 0.00 Weight (Pounds): 183 General Appearance: no apparent distress Neck: non-tender, supple Cardiovascular: normal rate, regular rhythm Respiratory/Chest: lungs clear, normal breath sounds Abdomen: normal bowel sounds, non tender, soft Extremities: other - bilateral above the knee amputation Neurologic: responsive Skin: warm/dry Pam Alcantar MD Jun 22, 2019 09:24
--- NOTE | 2019-06-22 09:39 | Nephrology Progress Note ---
Assessment/Plan Problem List: (1) ESRD (end stage renal disease) on dialysis (2) Septic shock (3) GI bleed (4) Decubitus skin ulcer (5) G tube feedings (6) DM (diabetes mellitus) (7) HTN (hypertension) Assessment ESRD Hematemesis Decubs Anemia Leukocytosis fever / Sepsis / shock h/o Pancreatitis h/o DM & HTN Plan HD done 06/21 next 06/23 if in house HD 06/20 not done as patient couldnt be canulated by dialysis nurse- will retry today transfused one unit Check Lipase Keep BP above 100 syst per consultants Subjective ROS Limited/Unobtainable: No Constitutional: Reports: malaise Objective Objective Last 24 Hour Vital Signs Date Time Temp Pulse Resp B/P (MAP) Pulse Ox O2 Delivery O2 Flow Rate FiO2 06/22/19 09:15 Room Air 06/22/19 08:35 98.2 91 25 134/51 (78) 99 06/22/19 07:43 88 20 95 Room Air 21 06/22/19 04:00 99.2 82 18 111/59 (76) 06/22/19 00:00 98.6 86 18 108/50 (69) 06/21/19 22:25 Room Air 06/21/19 21:38 96 18 97 Room Air 21 06/21/19 20:00 99.2 92 20 110/48 (68) 06/21/19 18:58 100.4 96 103/44 (63) 06/21/19 18:39 100.4 06/21/19 16:05 101.7 122 20 118/43 (68) 97 06/21/19 12:49 103 129/67 (87) 06/21/19 12:29 97.9 77 17 103/58 (73) 97 Intake and Output 06/21/19 06/22/19 19:00 07:00 Intake Total 440 ml 600 ml Output Total 0 ml Balance 440 ml 600 ml Free Water 0 ml 200 ml Tube Feeding 440 ml 400 ml Hemodialysis UF 0 ml # Voids 6 # Bowel Movements 3 Laboratory Tests 06/22/19 05:10: White Blood Count 8.2, Red Blood Count 3.03L, Hemoglobin 8.8L, Hematocrit 28.5L , Mean Corpuscular Volume 94, Mean Corpuscular Hemoglobin 29.1, Mean Corpuscular Hemoglobin Concent 31.0L, Red Cell Distribution Width 16.7H, Platelet Count 203, Mean Platelet Volume 6.0L, Neutrophils (%) (Auto) 75.8H, Lymphocytes (%) (Auto) 14.2L, Monocytes (%) (Auto) 5.5, Eosinophils (%) (Auto) 3.9H, Basophils (%) (Auto) 0.6, Sodium Level 143, Potassium Level 4.2, Chloride Level 107, Carbon Dioxide Level 27, Anion Gap 9, Blood Urea Nitrogen 36H, Creatinine 6.2H, Estimat Glomerular Filtration Rate , Glucose Level 96, Calcium Level 8.9, Phosphorus Level 4.0, Magnesium Level 2.3, Total Bilirubin 0.5, Aspartate Amino Transf (AST/SGOT) 35, Alanine Aminotransferase (ALT/SGPT) 6L, Alkaline Phosphatase 105, Total Protein 6.2L, Albumin 1.8L, Globulin 4.4, Albumin/Globulin Ratio 0.4L Height (Feet): 3 Height (Inches): 0.00 Weight (Pounds): 183 General Appearance: no apparent distress Cardiovascular: normal rate Respiratory/Chest: decreased breath sounds Abdomen: soft Objective no change Matthew Rich MD Jun 22, 2019 09:39
--- NOTE | 2019-06-22 10:26 | GI Progress Note ---
Assessment/Plan Problems: (1) GI bleed ICD Codes: K92.2 - Gastrointestinal hemorrhage, unspecified SNOMED: 85518082 (2) Anemia due to chronic kidney disease ICD Codes: N18.9 - Chronic kidney disease, unspecified; D63.1 - Anemia in chronic kidney disease SNOMED: 743065225 (3) Septic shock ICD Codes: A41.9 - Sepsis, unspecified organism; R65.21 - Severe sepsis with septic shock SNOMED: 58004402 (4) G tube feedings ICD Codes: Z93.1 - Gastrostomy status SNOMED: 773451618, 907256600, 531563884 Status: unchanged Status Narrative Discussed with Dr. Perales. Assessment/Plan SUMMARY OF FINDINGS: 1. Medium-sized hiatal hernia. 2. Gastritis, status post biopsy. 3. Duodenal ulceration without any evidence of active bleeding or any visible vessel or adherent clot. RECOMMENDATIONS: Resume tube feeding. Start the patient on Prevacid per G-tube 30 mg daily. Monitor hemoglobin and hematocrit, transfuse as needed. Monitor labs. The patient was seen and examined at bedside and all new and available data was reviewed in the patients chart. I agree with the above findings, impression and plan. (Patient seen earlier today. Signature stamp does not reflect patient encounter time.). - Ezequiel Perales MD Subjective Subjective limited Objective Last 24 Hour Vital Signs Date Time Temp Pulse Resp B/P (MAP) Pulse Ox O2 Delivery O2 Flow Rate FiO2 06/22/19 09:15 Room Air 06/22/19 08:35 98.2 91 25 134/51 (78) 99 06/22/19 07:43 88 20 95 Room Air 21 06/22/19 04:00 99.2 82 18 111/59 (76) 06/22/19 00:00 98.6 86 18 108/50 (69) 06/21/19 22:25 Room Air 06/21/19 21:38 96 18 97 Room Air 21 06/21/19 20:00 99.2 92 20 110/48 (68) 06/21/19 18:58 100.4 96 103/44 (63) 06/21/19 18:39 100.4 06/21/19 16:05 101.7 122 20 118/43 (68) 97 06/21/19 12:49 103 129/67 (87) 06/21/19 12:29 97.9 77 17 103/58 (73) 97 Intake and Output 06/21/19 06/22/19 19:00 07:00 Intake Total 440 ml 600 ml Output Total 0 ml Balance 440 ml 600 ml Free Water 0 ml 200 ml Tube Feeding 440 ml 400 ml Hemodialysis UF 0 ml # Voids 6 # Bowel Movements 3 Laboratory Tests Test 06/22/19 05:10 White Blood Count 8.2 K/UL (4.8-10.8) Red Blood Count 3.03 M/UL (4.20-5.40) L Hemoglobin 8.8 G/DL (12.0-16.0) L Hematocrit 28.5 % (37.0-47.0) L Mean Corpuscular Volume 94 FL (80-99) Mean Corpuscular Hemoglobin 29.1 PG (27.0-31.0) Mean Corpuscular Hemoglobin Concent 31.0 G/DL (32.0-36.0) L Red Cell Distribution Width 16.7 % (11.6-14.8) H Platelet Count 203 K/UL (150-450) Mean Platelet Volume 6.0 FL (6.5-10.1) L Neutrophils (%) (Auto) 75.8 % (45.0-75.0) H Lymphocytes (%) (Auto) 14.2 % (20.0-45.0) L Monocytes (%) (Auto) 5.5 % (1.0-10.0) Eosinophils (%) (Auto) 3.9 % (0.0-3.0) H Basophils (%) (Auto) 0.6 % (0.0-2.0) Sodium Level 143 MMOL/L (136-145) Potassium Level 4.2 MMOL/L (3.5-5.1) Chloride Level 107 MMOL/L (98-107) Carbon Dioxide Level 27 MMOL/L (21-32) Anion Gap 9 mmol/L (5-15) Blood Urea Nitrogen 36 mg/dL (7-18) H Creatinine 6.2 MG/DL (0.55-1.30) H Estimat Glomerular Filtration Rate mL/min (>60) Glucose Level 96 MG/DL (74-106) Calcium Level 8.9 MG/DL (8.5-10.1) Phosphorus Level 4.0 MG/DL (2.5-4.9) Magnesium Level 2.3 MG/DL (1.8-2.4) Total Bilirubin 0.5 MG/DL (0.2-1.0) Aspartate Amino Transf (AST/SGOT) 35 U/L (15-37) Alanine Aminotransferase (ALT/SGPT) 6 U/L (12-78) L Alkaline Phosphatase 105 U/L (46-116) Total Protein 6.2 G/DL (6.4-8.2) L Albumin 1.8 G/DL (3.4-5.0) L Globulin 4.4 g/dL Albumin/Globulin Ratio 0.4 (1.0-2.7) L Height (Feet): 3 Height (Inches): 0.00 Weight (Pounds): 183 General Appearance: no apparent distress, alert Cardiovascular: normal rate Respiratory/Chest: normal breath sounds, no respiratory distress Abdominal Exam: normal bowel sounds, non tender, soft Extremities: non-tender Lidia Recio NP Jun 22, 2019 10:26
--- NOTE | 2019-06-22 11:01 | Surgery Progress Note ---
Surgery Progress Note Subjective Procedure Performed removal of right femoral central venous catheter Additional Comments afebrile, HD stable labs noted and stable micro without growth of cath tip wound stable and dressings being changed Objective Last 24 Hour Vital Signs Date Time Temp Pulse Resp B/P (MAP) Pulse Ox O2 Delivery O2 Flow Rate FiO2 06/22/19 09:15 Room Air 06/22/19 08:35 98.2 91 25 134/51 (78) 99 06/22/19 07:43 88 20 95 Room Air 21 06/22/19 04:00 99.2 82 18 111/59 (76) 06/22/19 00:00 98.6 86 18 108/50 (69) 06/21/19 22:25 Room Air 06/21/19 21:38 96 18 97 Room Air 21 06/21/19 20:00 99.2 92 20 110/48 (68) 06/21/19 18:58 100.4 96 103/44 (63) 06/21/19 18:39 100.4 06/21/19 16:05 101.7 122 20 118/43 (68) 97 06/21/19 12:49 103 129/67 (87) 06/21/19 12:29 97.9 77 17 103/58 (73) 97 I&O Intake and Output 06/21/19 06/22/19 19:00 07:00 Intake Total 440 ml 600 ml Output Total 0 ml Balance 440 ml 600 ml Free Water 0 ml 200 ml Tube Feeding 440 ml 400 ml Hemodialysis UF 0 ml # Voids 6 # Bowel Movements 3 Dressing: saturated Wound: other Drains: other Cardiovascular: RSR Respiratory: decreased breath sounds Abdomen: soft, present bowel sounds, other, non-distended Extremities: no cyanosis, other Laboratory Tests Test 06/22/19 05:10 White Blood Count 8.2 K/UL (4.8-10.8) Red Blood Count 3.03 M/UL (4.20-5.40) L Hemoglobin 8.8 G/DL (12.0-16.0) L Hematocrit 28.5 % (37.0-47.0) L Mean Corpuscular Volume 94 FL (80-99) Mean Corpuscular Hemoglobin 29.1 PG (27.0-31.0) Mean Corpuscular Hemoglobin Concent 31.0 G/DL (32.0-36.0) L Red Cell Distribution Width 16.7 % (11.6-14.8) H Platelet Count 203 K/UL (150-450) Mean Platelet Volume 6.0 FL (6.5-10.1) L Neutrophils (%) (Auto) 75.8 % (45.0-75.0) H Lymphocytes (%) (Auto) 14.2 % (20.0-45.0) L Monocytes (%) (Auto) 5.5 % (1.0-10.0) Eosinophils (%) (Auto) 3.9 % (0.0-3.0) H Basophils (%) (Auto) 0.6 % (0.0-2.0) Sodium Level 143 MMOL/L (136-145) Potassium Level 4.2 MMOL/L (3.5-5.1) Chloride Level 107 MMOL/L (98-107) Carbon Dioxide Level 27 MMOL/L (21-32) Anion Gap 9 mmol/L (5-15) Blood Urea Nitrogen 36 mg/dL (7-18) H Creatinine 6.2 MG/DL (0.55-1.30) H Estimat Glomerular Filtration Rate mL/min (>60) Glucose Level 96 MG/DL (74-106) Calcium Level 8.9 MG/DL (8.5-10.1) Phosphorus Level 4.0 MG/DL (2.5-4.9) Magnesium Level 2.3 MG/DL (1.8-2.4) Total Bilirubin 0.5 MG/DL (0.2-1.0) Aspartate Amino Transf (AST/SGOT) 35 U/L (15-37) Alanine Aminotransferase (ALT/SGPT) 6 U/L (12-78) L Alkaline Phosphatase 105 U/L (46-116) Total Protein 6.2 G/DL (6.4-8.2) L Albumin 1.8 G/DL (3.4-5.0) L Globulin 4.4 g/dL Albumin/Globulin Ratio 0.4 (1.0-2.7) L Plan Problems: (1) Decubitus skin ulcer Assessment & Plan: Pt presented on admission with multiple full thickness pressure injuries R ,L buttocks and L ischium .R sacrum extending down to lower R buttocks erythematous with multiple areas with slough,(+) maceration along edges and periwound. Wound is malodorous. Wound with sloth that easily removed with non excisional debridement during clean up / washing. L sacrum extending into L lower buttocks erythematous ,macerated with scattered areas of yellow slough through out base of wound.Wound is malodorous. Small amt seropurulent exudate noted.Periwound noted to have darker skin tone that is indurated. L ischium darker than is normal skin tone and indurated with scattered open wound exuding small amt serous exudate. Incontinence associated dermatitis noted to perineum and medial aspects of both upper thigh.Skin is erythematous and denuded. Pt presented on admission in grossly unkempt state. Full thickness pressure injury to sacrum extending to R and L ischial regions.(L)18cm x (W)14cm. Sacral pressure injury measures(L)6cm x (W)8cm x (D)0.4cm. Scattered slough at base of wound. Muscle is palpable. Wound is now viable. Full thickness wounds R and L buttocks with scattered slough. Non-blanchable erythema with additional skin erosions periwound. Moisture Intertrigo noted to bilat breasts folds. abd folds and bilat groin areas. Skin is dry dry and flaky to both AKA stumps. Small partial thickness wound noted to L AKA (L)0.4cm x (W)0.4cm. Base of wound is moist and viable. Wound cleaned at bedside and non-excisional debridement performed of sloth. Underlying tissue fairly healthy. The is now a stage IV sacral decubitus ulcer in the central portion right above the coccyx with palpable musculature. Wound is deteriorated since last admission. Tx.Plan: Cleanse wound Sacrum with saline. Apply Therahoney to Sacrum,R and L buttocks. Apply Moisture Barrier Paste periwound. Cover with Optifoam drsg Daily and prn. Apply Moisture Barrier Paste to folds of both breasts,abd folds ,and bilat groin areas with each incontinence care. Apply Cavilon Skin Barrier to L AKA daily. Reposition at least every 2hours or as tolerated. Off-load heels with pillow. APM/TIAGO mattress overlay. (2) Sepsis Assessment & Plan: 84-year-old female with hypotension, tachycardia, leukocytosis, abnormal labs. Currently in intensive care unit line removed micro noted and negative growh will monitor On IV antibiotics as per infectious disease Trend labs We will follow with recommendations (3) GI bleed Assessment & Plan: Noted to have hematemesis while in nursing facility. No acute episode of hematemesis at this time stool is noted to be fairly dark Appreciate GI input (4) G tube feedings Assessment & Plan: DAILY ESTIMATED NEEDS: Needs based on ESRD/HD, wound/ 55kg adj for BL AKA 30-35 kcals/kg 6567-1613 total kcals 1.25-1.8 g protein/kg 69-99 g total protein 20-25 mL/kg 6653-3471 total fluid mLs NUTRITION DIAGNOSIS: * Increased kcal/pro intake needs R/T renal dysfunction, wound healing as evidenced by ESRD dx, on HD. admitted w/ advanced wounds including full thickness wounds x3, refer to WC eval (CURRENT TF: Glucerna 1.2 @55) ENTERAL NUTRITION RECOMMENDATIONS: Nepro @ 40ml/hr x 24 hrs + Prosource x1 daily to provide 960ml, 1728kcal, 78g + 11g pro, 698ml free water * WITH HEMODYNAMIC STABILITY, resume TF * Initiate Nepro @ 20ml/hr x 6 hrs, advance 10ml q 4-6 hrs as tolerated to goal. * HOB over 30 degrees/ water flush per MD ADDITIONAL RECOMMENDATIONS: * Calibrated dry wt post HD * Wound healing: add Nephrovite 1 tab QD - Add MAX BID - Add ZnSO4 220mg daily x10 days * Trophic feeds when on pressor support * Monitor Willian Avila Jun 22, 2019 11:01
--- NOTE | 2019-06-22 11:18 | Cardiac Electrophysiology PN ---
Assessment/Plan Assessment/Plan 1. S/P septic shock. Blood pressure is improved. Off Levophed. The patient is on IV antibiotic. Her EKG showed no acute ischemic changes. Echo Nl EF 60%. RFV line was removed. 2. End-stage renal disease, on hemodialysis. 3. Gastrointestinal bleed and anemia. S/P EGD by Dr perales Gastritis and Duodenal ulceration 4. Decubitus ulcer. 5. Hypertension 6. Diabetes. 7. Dysphagia, status post G-tube. 8. New Fever 101. DC cancelled. FU ID [id number] RN Subjective Subjective No CP or SOB. In SR. nonverbal. RN at bedside. Had EGD by Dr Perales that showed Gastritis and Duodenal ulceration. DC cancelled as had T 101 and awaiting Dept of health clearance for questionable hemptysis Objective Last 24 Hour Vital Signs Date Time Temp Pulse Resp B/P (MAP) Pulse Ox O2 Delivery O2 Flow Rate FiO2 06/22/19 09:15 Room Air 06/22/19 08:35 98.2 91 25 134/51 (78) 99 06/22/19 07:43 88 20 95 Room Air 21 06/22/19 04:00 99.2 82 18 111/59 (76) 06/22/19 00:00 98.6 86 18 108/50 (69) 06/21/19 22:25 Room Air 06/21/19 21:38 96 18 97 Room Air 21 06/21/19 20:00 99.2 92 20 110/48 (68) 06/21/19 18:58 100.4 96 103/44 (63) 06/21/19 18:39 100.4 06/21/19 16:05 101.7 122 20 118/43 (68) 97 06/21/19 12:49 103 129/67 (87) 06/21/19 12:29 97.9 77 17 103/58 (73) 97 Intake and Output 06/21/19 06/22/19 19:00 07:00 Intake Total 440 ml 600 ml Output Total 0 ml Balance 440 ml 600 ml Free Water 0 ml 200 ml Tube Feeding 440 ml 400 ml Hemodialysis UF 0 ml # Voids 6 # Bowel Movements 3 Laboratory Tests Test 06/22/19 05:10 White Blood Count 8.2 K/UL (4.8-10.8) Red Blood Count 3.03 M/UL (4.20-5.40) L Hemoglobin 8.8 G/DL (12.0-16.0) L Hematocrit 28.5 % (37.0-47.0) L Mean Corpuscular Volume 94 FL (80-99) Mean Corpuscular Hemoglobin 29.1 PG (27.0-31.0) Mean Corpuscular Hemoglobin Concent 31.0 G/DL (32.0-36.0) L Red Cell Distribution Width 16.7 % (11.6-14.8) H Platelet Count 203 K/UL (150-450) Mean Platelet Volume 6.0 FL (6.5-10.1) L Neutrophils (%) (Auto) 75.8 % (45.0-75.0) H Lymphocytes (%) (Auto) 14.2 % (20.0-45.0) L Monocytes (%) (Auto) 5.5 % (1.0-10.0) Eosinophils (%) (Auto) 3.9 % (0.0-3.0) H Basophils (%) (Auto) 0.6 % (0.0-2.0) Sodium Level 143 MMOL/L (136-145) Potassium Level 4.2 MMOL/L (3.5-5.1) Chloride Level 107 MMOL/L (98-107) Carbon Dioxide Level 27 MMOL/L (21-32) Anion Gap 9 mmol/L (5-15) Blood Urea Nitrogen 36 mg/dL (7-18) H Creatinine 6.2 MG/DL (0.55-1.30) H Estimat Glomerular Filtration Rate mL/min (>60) Glucose Level 96 MG/DL (74-106) Calcium Level 8.9 MG/DL (8.5-10.1) Phosphorus Level 4.0 MG/DL (2.5-4.9) Magnesium Level 2.3 MG/DL (1.8-2.4) Total Bilirubin 0.5 MG/DL (0.2-1.0) Aspartate Amino Transf (AST/SGOT) 35 U/L (15-37) Alanine Aminotransferase (ALT/SGPT) 6 U/L (12-78) L Alkaline Phosphatase 105 U/L (46-116) Total Protein 6.2 G/DL (6.4-8.2) L Albumin 1.8 G/DL (3.4-5.0) L Globulin 4.4 g/dL Albumin/Globulin Ratio 0.4 (1.0-2.7) L Microbiology Date/Time Source Procedure Growth Status 06/20/19 10:00 Catheter Site Catheter Tip Culture - Preliminary NO GROWTH AFTER 48 HOURS Resulted Objective HEAD AND NECK: Shows no JVD. LUNGS: Coarse rhonchi. CARDIOVASCULAR: Regular S1 and S2 with no gallop. ABDOMEN: Soft. G-tube. EXTREMITIES: Bilateral above-knee amputation. She has a triple-lumen in the right femoral area and dialysis access in the right arm. Will Osborne MD Jun 22, 2019 11:18
[2019-06-22 12:04] VITALS: BP 104/48
--- NOTE | 2019-06-22 13:17 | Pulmonology Progress Note ---
Assessment/Plan Problems: (1) Septic shock (2) GI bleed (3) Anemia (4) Decubitus skin ulcer (5) ESRD (end stage renal disease) on dialysis (6) DM (diabetes mellitus) (7) G tube feedings (8) HTN (hypertension) Assessment/Plan dc was canceled b/o lack of clearance from [facility] hear rate, bp stable h/h stable EGD done, tolerating feeding check electrolytes med/surg dc planning? Subjective ROS Limited/Unobtainable: No Constitutional: Reports: no symptoms HEENT: Repors: no symptoms Respiratory: Reports: no symptoms Allergies: Coded Allergies: GABAPENTIN (Unverified Allergy, Unknown, 06/14/19) Objective Last 24 Hour Vital Signs Date Time Temp Pulse Resp B/P (MAP) Pulse Ox O2 Delivery O2 Flow Rate FiO2 06/22/19 12:04 98.0 93 24 104/48 (66) 96 06/22/19 09:15 Room Air 06/22/19 08:35 98.2 91 25 134/51 (78) 99 06/22/19 07:43 88 20 95 Room Air 21 06/22/19 04:00 99.2 82 18 111/59 (76) 06/22/19 00:00 98.6 86 18 108/50 (69) 06/21/19 22:25 Room Air 06/21/19 21:38 96 18 97 Room Air 21 06/21/19 20:00 99.2 92 20 110/48 (68) 06/21/19 18:58 100.4 96 103/44 (63) 06/21/19 18:39 100.4 06/21/19 16:05 101.7 122 20 118/43 (68) 97 Intake and Output 06/21/19 06/22/19 19:00 07:00 Intake Total 440 ml 600 ml Output Total 0 ml Balance 440 ml 600 ml Free Water 0 ml 200 ml Tube Feeding 440 ml 400 ml Hemodialysis UF 0 ml # Voids 6 # Bowel Movements 3 General Appearance: WD/WN HEENT: normocephalic Respiratory/Chest: lungs clear, no respiratory distress Cardiovascular: normal peripheral pulses, regular rhythm Abdomen: normal bowel sounds, soft, non tender Genitourinary: normal external genitalia Extremities: no cyanosis Neurologic/Psychiatric: abnormal gait Microbiology Date/Time Source Procedure Growth Status 06/20/19 10:00 Catheter Site Catheter Tip Culture - Preliminary NO GROWTH AFTER 48 HOURS Resulted Laboratory Tests 06/22/19 05:10: White Blood Count 8.2, Red Blood Count 3.03L, Hemoglobin 8.8L, Hematocrit 28.5L , Mean Corpuscular Volume 94, Mean Corpuscular Hemoglobin 29.1, Mean Corpuscular Hemoglobin Concent 31.0L, Red Cell Distribution Width 16.7H, Platelet Count 203, Mean Platelet Volume 6.0L, Neutrophils (%) (Auto) 75.8H, Lymphocytes (%) (Auto) 14.2L, Monocytes (%) (Auto) 5.5, Eosinophils (%) (Auto) 3.9H, Basophils (%) (Auto) 0.6, Sodium Level 143, Potassium Level 4.2, Chloride Level 107, Carbon Dioxide Level 27, Anion Gap 9, Blood Urea Nitrogen 36H, Creatinine 6.2H, Estimat Glomerular Filtration Rate , Glucose Level 96, Calcium Level 8.9, Phosphorus Level 4.0, Magnesium Level 2.3, Total Bilirubin 0.5, Aspartate Amino Transf (AST/SGOT) 35, Alanine Aminotransferase (ALT/SGPT) 6L, Alkaline Phosphatase 105, Total Protein 6.2L, Albumin 1.8L, Globulin 4.4, Albumin/Globulin Ratio 0.4L Current Medications Medications (Trade) Dose Ordered Sig/Selene Route PRN Reason Start Time Stop Time Status Last Admin Dose Admin Acetaminophen (Tylenol) 650 mg Q4H PRN GT Fever 06/20/19 13:45 07/14/19 13:44 06/21/19 16:09 Albuterol/ Ipratropium (Albuterol/ Ipratropium) 3 ml Q4H PRN HHN Shortness of Breath 06/20/19 13:45 06/24/19 13:44 Dextrose (Dextrose 50%) 25 ml Q30M PRN IV Hypoglycemia 06/20/19 13:45 07/18/19 20:12 Dextrose (Dextrose 50%) 50 ml Q30M PRN IV hypoglycemia 06/20/19 13:45 07/18/19 20:14 Ertapenem (INVanz) 0.5 gm Q24H IM 06/20/19 18:00 07/01/19 23:00 06/21/19 18:41 Fluconazole (Diflucan) 200 mg Q24H GT 06/21/19 21:00 06/28/19 20:59 06/21/19 21:24 Heparin Sodium (Porcine) (Heparin) 2,000 unit ONCE PRN INJ for nuclear med 06/21/19 19:30 06/22/19 23:59 Hydralazine HCl (Apresoline) 25 mg Q6H PRN GT For High Blood Pressure 06/20/19 13:45 07/14/19 13:44 Insulin Aspart (NovoLOG) BEFORE MEALS AND HS SUBQ 06/20/19 16:30 07/14/19 20:59 06/21/19 21:39 Lansoprazole (Prevacid) 30 mg BID GT 06/21/19 12:00 07/21/19 11:59 06/22/19 08:50 Linezolid (Zyvox) 600 mg EVERY 12 HOURS GT 06/20/19 21:00 07/01/19 23:00 06/22/19 08:50 Midodrine (Pro-Amatine) 10 mg THREE TIMES A DAY GT 06/21/19 13:00 07/21/19 12:59 06/21/19 18:54 Ondansetron HCl (Zofran) 4 mg Q6H PRN IVP Nausea & Vomiting 06/20/19 13:45 07/14/19 13:44 Zinc Sulfate (Zinc Sulfate) 220 mg DAILY GT 06/21/19 09:00 06/30/19 08:59 06/22/19 08:50 Rosemary Lui MD Jun 22, 2019 13:17
[2019-06-22 13:19] VITALS: BP 117/59
--- NOTE | 2019-06-22 14:21 | Infectious Diseases Prog Note ---
Assessment/Plan Problems: (1) Fever Assessment & Plan: recurrent while on zyvox and ertapenem, S/P femoral line removal, suspect deep abscess or osteomyelitis of the pelvis bone VS fungal infection VS drug fever. now improving after adding fluconazole empirically, await WBC indium scan to rule out any occult focus of infection, continue zyvox and ertapenem for now , repeated blood culture is pending (2) Sepsis Assessment & Plan: with shock due to staphylococcus epidermidis with fever, source most likely sacral/buttock pressure wounds rule out underlying osteomyelitis or abscess . continue zyvox orally and ertapenem IM , since no IV access . echo transthoracic showed no vegetations . repeated blood culture x 4 is negative so far which confirm clearance. will need two weeks of antibiotics therapy if no evidence of pelvic or sacrum osteomyelitis . EOT (3) Decubitus skin ulcer Assessment & Plan: with maceration and necrosis , possibly infected, had surgical eval , already on wide spectrum antibiotics , keep off loading with local wound care as needed as per hospital protocol (4) GI bleed Assessment & Plan: monitor H/H , transfuse as needed, GI eval for source control (5) ESRD (end stage renal disease) on dialysis Assessment & Plan: continue HD as per renal , antibiotics renally dosed as per pharmacy (6) Anemia Assessment & Plan: due to the above , transfuse blood as needed, GI eval for source control (7) Cough with hemoptysis Assessment & Plan: resolved, 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 for her that she was treated here . sputum for AFB smear x 3 is negative so far , and PCR MTB is negative , with negative T spot. off air born isolation . doubt TB Subjective ROS Limited/Unobtainable: Yes Allergies: Coded Allergies: GABAPENTIN (Unverified Allergy, Unknown, 06/14/19) Subjective she was resting in bed , quiet, nonverbal, awake, no cough or hemoptysis today , spiked fever later again today. Objective Vital Signs Last 24 Hour Vital Signs Date Time Temp Pulse Resp B/P (MAP) Pulse Ox O2 Delivery O2 Flow Rate FiO2 06/22/19 13:19 86 117/59 (78) 06/22/19 12:04 98.0 93 24 104/48 (66) 96 06/22/19 09:15 Room Air 06/22/19 08:35 98.2 91 25 134/51 (78) 99 06/22/19 07:43 88 20 95 Room Air 21 06/22/19 04:00 99.2 82 18 111/59 (76) 06/22/19 00:00 98.6 86 18 108/50 (69) 06/21/19 22:25 Room Air 06/21/19 21:38 96 18 97 Room Air 21 06/21/19 20:00 99.2 92 20 110/48 (68) 06/21/19 18:58 100.4 96 103/44 (63) 06/21/19 18:39 100.4 06/21/19 16:05 101.7 122 20 118/43 (68) 97 Height (Feet): 3 Height (Inches): 0.00 Weight (Pounds): 183 General Appearance: WD/WN, no acute distress HEENT: normocephalic, atraumatic, anicteric, mucous membranes moist, PERRL Respiratory/Chest: chest wall non-tender, lungs clear, normal breath sounds, no respiratory distress, no accessory muscle use Cardiovascular: normal peripheral pulses, normal rate, regular rhythm, no gallop/murmur, no JVD Abdomen: normal bowel sounds, soft, non tender, no organomegaly, non distended , no mass, no scars Extremities: no cyanosis, no clubbing Skin: no rash, no lesions, ulcers Neurologic/Psychiatric: alert, unresponsiveness Lymphatic: no neck adenopathy, no groin adenopathy Musculoskeletal: normal muscle bulk, no effusion Microbiology Date/Time Source Procedure Growth Status 06/20/19 10:00 Catheter Site Catheter Tip Culture - Preliminary NO GROWTH AFTER 48 HOURS Resulted Laboratory Tests Test 06/22/19 05:10 White Blood Count 8.2 K/UL (4.8-10.8) Red Blood Count 3.03 M/UL (4.20-5.40) L Hemoglobin 8.8 G/DL (12.0-16.0) L Hematocrit 28.5 % (37.0-47.0) L Mean Corpuscular Volume 94 FL (80-99) Mean Corpuscular Hemoglobin 29.1 PG (27.0-31.0) Mean Corpuscular Hemoglobin Concent 31.0 G/DL (32.0-36.0) L Red Cell Distribution Width 16.7 % (11.6-14.8) H Platelet Count 203 K/UL (150-450) Mean Platelet Volume 6.0 FL (6.5-10.1) L Neutrophils (%) (Auto) 75.8 % (45.0-75.0) H Lymphocytes (%) (Auto) 14.2 % (20.0-45.0) L Monocytes (%) (Auto) 5.5 % (1.0-10.0) Eosinophils (%) (Auto) 3.9 % (0.0-3.0) H Basophils (%) (Auto) 0.6 % (0.0-2.0) Sodium Level 143 MMOL/L (136-145) Potassium Level 4.2 MMOL/L (3.5-5.1) Chloride Level 107 MMOL/L (98-107) Carbon Dioxide Level 27 MMOL/L (21-32) Anion Gap 9 mmol/L (5-15) Blood Urea Nitrogen 36 mg/dL (7-18) H Creatinine 6.2 MG/DL (0.55-1.30) H Estimat Glomerular Filtration Rate mL/min (>60) Glucose Level 96 MG/DL (74-106) Calcium Level 8.9 MG/DL (8.5-10.1) Phosphorus Level 4.0 MG/DL (2.5-4.9) Magnesium Level 2.3 MG/DL (1.8-2.4) Total Bilirubin 0.5 MG/DL (0.2-1.0) Aspartate Amino Transf (AST/SGOT) 35 U/L (15-37) Alanine Aminotransferase (ALT/SGPT) 6 U/L (12-78) L Alkaline Phosphatase 105 U/L (46-116) Total Protein 6.2 G/DL (6.4-8.2) L Albumin 1.8 G/DL (3.4-5.0) L Globulin 4.4 g/dL Albumin/Globulin Ratio 0.4 (1.0-2.7) L Current Medications Medications (Trade) Dose Ordered Sig/Selene Route PRN Reason Start Time Stop Time Status Last Admin Dose Admin Acetaminophen (Tylenol) 650 mg Q4H PRN GT Fever 06/20/19 13:45 07/14/19 13:44 06/21/19 16:09 Albuterol/ Ipratropium (Albuterol/ Ipratropium) 3 ml Q4H PRN HHN Shortness of Breath 06/20/19 13:45 06/24/19 13:44 Dextrose (Dextrose 50%) 25 ml Q30M PRN IV Hypoglycemia 06/20/19 13:45 07/18/19 20:12 Dextrose (Dextrose 50%) 50 ml Q30M PRN IV hypoglycemia 06/20/19 13:45 07/18/19 20:14 Ertapenem (INVanz) 0.5 gm Q24H IM 06/20/19 18:00 07/01/19 23:00 06/21/19 18:41 Fluconazole (Diflucan) 200 mg Q24H GT 06/21/19 21:00 06/28/19 20:59 06/21/19 21:24 Heparin Sodium (Porcine) (Heparin) 2,000 unit ONCE PRN INJ for nuclear med 06/21/19 19:30 06/22/19 23:59 Hydralazine HCl (Apresoline) 25 mg Q6H PRN GT For High Blood Pressure 06/20/19 13:45 07/14/19 13:44 Insulin Aspart (NovoLOG) BEFORE MEALS AND HS SUBQ 06/20/19 16:30 07/14/19 20:59 06/21/19 21:39 Lansoprazole (Prevacid) 30 mg BID GT 06/21/19 12:00 07/21/19 11:59 06/22/19 08:50 Linezolid (Zyvox) 600 mg EVERY 12 HOURS GT 06/20/19 21:00 07/01/19 23:00 06/22/19 08:50 Midodrine (Pro-Amatine) 10 mg THREE TIMES A DAY GT 06/21/19 13:00 07/21/19 12:59 06/21/19 18:54 Ondansetron HCl (Zofran) 4 mg Q6H PRN IVP Nausea & Vomiting 06/20/19 13:45 07/14/19 13:44 Zinc Sulfate (Zinc Sulfate) 220 mg DAILY GT 06/21/19 09:00 06/30/19 08:59 06/22/19 08:50 Morteza Castillo M.D. Jun 22, 2019 14:21
[2019-06-22] MEDS: Ertapenem (INVanz) 1gm Inj IM SCH (18:33)
--- NOTE | 2019-06-22 18:45 | Diagnostic Imaging Report ---
Clinical Indication: History of tuberculosis, fever, sepsis, cough Technique: Spiral acquisitions obtained through the chest. No IV contrast utilized, reason not stated. Multiplanar reconstructions generated. Total dose length product 858.24 mGycm. CTDIvol(s) 26.5 mGy. Dose reduction achieved using automated exposure control Comparison: none Findings: Dependent atelectatic changes and possibly some scarring are seen at the lung bases, more so on the right than on the left. No infiltrates. There is equivocally trace pleural fluid on the left. There are a few tiny cystic spaces or bullae within the right upper and lower lobes. No masses or nodules are demonstrated. There are pleural calcifications within the right costophrenic sulcus, both lateral and medial. No parenchymal calcifications are demonstrated There is a densely calcified left hilar lymph node, as well as a smaller granulomatous calcification within the left hilum. No hilar or paratracheal lymphadenopathy demonstrated. However, there are prominent confluent prevascular space nodes which in aggregate measure 4.5 x 1.4 cm diameter. Alternatively, this may be a lobulated mass. These are somewhat low in attenuation. There is a stent in the right subclavian vein. The heart size is borderline enlarged. No pericardial effusion. The thyroid is unremarkable. There is a small sliding-type hiatal hernia. Esophagus is otherwise unremarkable. No axillary or chest wall mass or adenopathy demonstrated. The main pulmonary artery is somewhat ectatic but not frankly dilated. A prominent collateral vein is seen in the anterior chest wall. The included upper abdominal anatomy demonstrates a 2 cm soft tissue attenuation mass in segment 8 of the liver. Scattered calcifications are seen in the liver. These may be arterial or granulomatous. There are gallstones. There is a gastrojejunostomy tube. Calcifications within the spleen are probably all arterial. The kidneys are atrophic bilaterally, demonstrate multiple cysts. There is a mild anterior wedge compression fracture deformity of the T6 vertebral body. There may be slight superior endplate compression fracture deformities of the T9 L1 vertebral bodies. There are generalized degenerative changes of the thoracic spine Impression: Evidence of prior tuberculosis, including calcified granulomatous left hilar lymph node and right-sided pleural calcifications. No pulmonary parenchymal findings to suggest active tuberculosis. Note is made, however, apparent confluent isolated prevascular space lymphadenopathy versus lobulated mass. This is somewhat hypoattenuating and therefore may be necrotic. Significance of this is uncertain in the absence of other significant thoracic findings. This may be better assessed with contrast CT. Bilateral basilar pulmonary atelectatic changes and possible scarring Tiny scattered right lung bullae Equivocal trace left pleural effusion Borderline cardiomegaly Soft tissue attenuation right lobe liver lesion, nonspecific but neoplasm possible. This was discussed by phone with Dr. Lui at the time of interpretation Cholelithiasis Multiple vertebral body compression fractures, age-indeterminate Atrophic bilateral kidneys, consistent with medical renal renal disease Other findings as noted, including right subclavian venous stent, degenerative spondylosis changes, gastrojejunostomy, arterial calcifications, sliding-type hiatal hernia. This agrees with the preliminary interpretation provided overnight by [facility] teleradiology service. The CT scanner at [facility] is accredited by the [employer] [employer] and the scans are performed using protocols designed to limit radiation exposure to as low as reasonably achievable to attain images of sufficient resolution adequate for diagnostic evaluation.
[2019-06-22 20:49] VITALS: BP 107/51
[2019-06-22] MEDS: Fluconazole 100mg tab GT SCH (20:59)
[2019-06-23] VITALS: BP 116/94
[2019-06-23 04:00] VITALS: BP 128/59
[2019-06-23] MEDS: NovoLOG Insulin Flexpen SUBQ SCH ×4 (05:38→21:00)
[2019-06-23 06:31] LABS: BASOPHILS % (AUTO) 0.5 % (0.0-2.0); EOSINOPHILS % (AUTO) 4.1 % (0.0-3.0); HEMATOCRIT 27.8 % (37.0-47.0); HEMOGLOBIN 8.5 G/DL (12.0-16.0); LYMPHOCYTES % (AUTO) 9.9 % (20.0-45.0); MEAN CORPUSCULAR VOLUME 94 FL (80-99); MONOCYTES % (AUTO) 3.5 % (1.0-10.0); NEUTROPHILS % (AUTO) 82.1 % (45.0-75.0); PLATELET COUNT 188 K/UL (150-450); RED BLOOD COUNT 2.96 M/UL (4.20-5.40); RED CELL DISTRIBUTION WIDTH 17.2 % (11.6-14.8); WHITE BLOOD COUNT 8.7 K/UL (4.8-10.8)
[2019-06-23 07:05] LABS: ANION GAP 7 mmol/L (5-15); BLOOD UREA NITROGEN 47 mg/dL (7-18); CALCIUM 9.1 MG/DL (8.5-10.1); CARBON DIOXIDE 28 MMOL/L (21-32); CHLORIDE 108 MMOL/L (98-107); CREATININE 7.3 MG/DL (0.55-1.30); POTASSIUM 3.7 MMOL/L (3.5-5.1); SODIUM 143 MMOL/L (136-145)
[2019-06-23 08:00] VITALS: BP 121/62
[2019-06-23] MEDS: Zinc Sulfate 220mg cap GT SCH (08:50)
[2019-06-23] MEDS: Midodrine 10mg tab GT SCH ×3 (08:50→17:05)
--- NOTE | 2019-06-23 08:56 | General Progress Note ---
Assessment/Plan Status: stable, unchanged Assessment/Plan: 1. Fever - most likely due to antifungal growth. cont fluconazole and Abx for now. WBC scan pending. ID following. 2. Septic Shock - improved. off pressor and doing well. Cont Abx for now. ID following. In Med surg. 3. ESRD on HD - on HD 3x/wk. 4. Sacral pressure ulcer - surgery is following. 5. Upper GI bleed 2nd to duodenal ulcer - H/H currently stable. s/p One unit of PRBC. EGD showed Gastritis and nonbleeding duodenal ulcer. cont prevacid 30 mg bid. 6. Sepsis - cont IV Abx. ID following the patient. blood cultures showed staph Epidermatous. cont abx and antifungal for now. 7. HLD - cont home meds. 8. Gout - cont Allopurinol 9. H/O PVD 10. H/O DVT 11. DM II - cont SSI. 12. HTN - off meds and blood pressure is fine. 13. 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 Subjective Date patient seen: Jun 23, 2019 Time patient seen: 08:30 HEENT: Reports: no symptoms Cardiovascular: Reports: no symptoms Respiratory: Reports: no symptoms Gastrointestinal/Abdominal: Reports: no symptoms Genitourinary: Reports: no symptoms Neurologic/Psychiatric: Reports: no symptoms Endocrine: Reports: no symptoms Hematologic/Lymphatic: Reports: no symptoms Allergies: Coded Allergies: GABAPENTIN (Unverified Allergy, Unknown, 06/14/19) Subjective Patient is in Med Surg. She had low grade fever over night. she is ESRD on HD. Objective Last 24 Hour Vital Signs Date Time Temp Pulse Resp B/P (MAP) Pulse Ox O2 Delivery O2 Flow Rate FiO2 06/23/19 07:51 85 18 96 Room Air 21 06/23/19 04:00 99.0 87 20 128/59 (82) 98 06/23/19 00:00 99.0 86 22 116/94 (101) 99 06/22/19 21:00 Room Air 06/22/19 20:49 98.2 68 21 107/51 (69) 99 06/22/19 19:43 80 18 96 Room Air 21 06/22/19 13:19 86 117/59 (78) 06/22/19 12:04 98.0 93 24 104/48 (66) 96 06/22/19 09:15 Room Air Intake and Output 06/22/19 06/23/19 19:00 07:00 Intake Total 680 ml 810 ml Balance 680 ml 810 ml Free Water 200 ml 330 ml Tube Feeding 480 ml 480 ml # Voids 2 # Bowel Movements 2 Laboratory Tests 06/23/19 04:40: White Blood Count 8.7, Red Blood Count 2.96L, Hemoglobin 8.5L, Hematocrit 27.8L , Mean Corpuscular Volume 94, Mean Corpuscular Hemoglobin 28.7, Mean Corpuscular Hemoglobin Concent 30.5L, Red Cell Distribution Width 17.2H, Platelet Count 188, Mean Platelet Volume 6.1L, Neutrophils (%) (Auto) 82.1H, Lymphocytes (%) (Auto) 9.9L, Monocytes (%) (Auto) 3.5, Eosinophils (%) (Auto) 4.1H, Basophils (%) (Auto) 0.5, Sodium Level 143, Potassium Level 3.7, Chloride Level 108H, Carbon Dioxide Level 28, Anion Gap 7, Blood Urea Nitrogen 47H, Creatinine 7.3H, Estimat Glomerular Filtration Rate , Glucose Level 82, Calcium Level 9.1 Height (Feet): 3 Height (Inches): 0.00 Weight (Pounds): 185 General Appearance: no apparent distress EENT: normal ENT inspection Neck: non-tender, supple Cardiovascular: normal rate, regular rhythm Respiratory/Chest: lungs clear, normal breath sounds Abdomen: non tender, soft Neurologic: responsive Skin: warm/dry Pam Alcantar MD Jun 23, 2019 08:56
--- NOTE | 2019-06-23 10:54 | GI Progress Note ---
Assessment/Plan Problems: (1) GI bleed ICD Codes: K92.2 - Gastrointestinal hemorrhage, unspecified SNOMED: 00872188 (2) Anemia due to chronic kidney disease ICD Codes: N18.9 - Chronic kidney disease, unspecified; D63.1 - Anemia in chronic kidney disease SNOMED: 571654949 (3) Septic shock ICD Codes: A41.9 - Sepsis, unspecified organism; R65.21 - Severe sepsis with septic shock SNOMED: 06254874 (4) G tube feedings ICD Codes: Z93.1 - Gastrostomy status SNOMED: 679530111, 780072558, [id number] Status: unchanged Status Narrative Discussed with Dr. Perales. Assessment/Plan SUMMARY OF FINDINGS: 1. Medium-sized hiatal hernia. 2. Gastritis, status post biopsy. 3. Duodenal ulceration without any evidence of active bleeding or any visible vessel or adherent clot. RECOMMENDATIONS: Resume tube feeding. Start the patient on Prevacid per G-tube 30 mg daily. Monitor hemoglobin and hematocrit, transfuse as needed. Monitor labs. The patient was seen and examined at bedside and all new and available data was reviewed in the patients chart. I agree with the above findings, impression and plan. (Patient seen earlier today. Signature stamp does not reflect patient encounter time.). - Ezequiel Perales MD Subjective Subjective limited Objective Last 24 Hour Vital Signs Date Time Temp Pulse Resp B/P (MAP) Pulse Ox O2 Delivery O2 Flow Rate FiO2 06/23/19 09:00 Room Air 06/23/19 08:00 98.9 84 20 121/62 (81) 97 06/23/19 07:51 85 18 96 Room Air 21 06/23/19 04:00 99.0 87 20 128/59 (82) 98 06/23/19 00:00 99.0 86 22 116/94 (101) 99 06/22/19 21:00 Room Air 06/22/19 20:49 98.2 68 21 107/51 (69) 99 06/22/19 19:43 80 18 96 Room Air 21 06/22/19 13:19 86 117/59 (78) 06/22/19 12:04 98.0 93 24 104/48 (66) 96 Intake and Output 06/22/19 06/23/19 19:00 07:00 Intake Total 680 ml 810 ml Balance 680 ml 810 ml Free Water 200 ml 330 ml Tube Feeding 480 ml 480 ml # Voids 2 # Bowel Movements 2 Laboratory Tests Test 06/23/19 04:40 White Blood Count 8.7 K/UL (4.8-10.8) Red Blood Count 2.96 M/UL (4.20-5.40) L Hemoglobin 8.5 G/DL (12.0-16.0) L Hematocrit 27.8 % (37.0-47.0) L Mean Corpuscular Volume 94 FL (80-99) Mean Corpuscular Hemoglobin 28.7 PG (27.0-31.0) Mean Corpuscular Hemoglobin Concent 30.5 G/DL (32.0-36.0) L Red Cell Distribution Width 17.2 % (11.6-14.8) H Platelet Count 188 K/UL (150-450) Mean Platelet Volume 6.1 FL (6.5-10.1) L Neutrophils (%) (Auto) 82.1 % (45.0-75.0) H Lymphocytes (%) (Auto) 9.9 % (20.0-45.0) L Monocytes (%) (Auto) 3.5 % (1.0-10.0) Eosinophils (%) (Auto) 4.1 % (0.0-3.0) H Basophils (%) (Auto) 0.5 % (0.0-2.0) Sodium Level 143 MMOL/L (136-145) Potassium Level 3.7 MMOL/L (3.5-5.1) Chloride Level 108 MMOL/L (98-107) H Carbon Dioxide Level 28 MMOL/L (21-32) Anion Gap 7 mmol/L (5-15) Blood Urea Nitrogen 47 mg/dL (7-18) H Creatinine 7.3 MG/DL (0.55-1.30) H Estimat Glomerular Filtration Rate mL/min (>60) Glucose Level 82 MG/DL (74-106) Calcium Level 9.1 MG/DL (8.5-10.1) Height (Feet): 3 Height (Inches): 0.00 Weight (Pounds): 185 General Appearance: no apparent distress Cardiovascular: normal rate Respiratory/Chest: normal breath sounds, no respiratory distress Abdominal Exam: normal bowel sounds, non tender, soft, GT site - c/d/i Extremities: non-tender Lidia Recio NP Jun 23, 2019 10:54
[2019-06-23 12:00] VITALS: BP 124/81
--- NOTE | 2019-06-23 13:59 | Infectious Diseases Prog Note ---
Assessment/Plan Problems: (1) Fever Assessment & Plan: while on zyvox and ertapenem, S/P femoral line removal, now improving after adding fluconazole empirically, await bone scan of the pelvis area to rule out osteomyelitis, WBC indium scan was not done due to lack of contrast materials to rule out any occult focus of infection, would continue zyvox and ertapenem for two weeks course of treatment . will order fungal serology to rule out fungal pneumonia with lobulated lymph nodes on CT chest (2) Sepsis Assessment & Plan: with shock due to staphylococcus epidermidis with fever, source most likely sacral/buttock pressure wounds rule out underlying osteomyelitis or abscess . continue zyvox orally and ertapenem IM , since no IV access . echo transthoracic showed no vegetations . repeated blood culture x 4 is negative so far which confirm clearance. will need two weeks of antibiotics therapy if no evidence of pelvic or sacrum osteomyelitis . EOT (3) Decubitus skin ulcer Assessment & Plan: with maceration and necrosis , possibly infected, had surgical eval , already on wide spectrum antibiotics , keep off loading with local wound care as needed as per hospital protocol (4) GI bleed Assessment & Plan: monitor H/H , transfuse as needed, GI eval for source control (5) ESRD (end stage renal disease) on dialysis Assessment & Plan: continue HD as per renal , antibiotics renally dosed as per pharmacy (6) Anemia Assessment & Plan: due to the above , transfuse blood as needed, GI eval for source control (7) Cough with hemoptysis Assessment & Plan: resolved, 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 sputum for AFB smear x 3 is negative so far , and PCR MTB is negative , with negative T spot. off air born isolation . doubt TB (8) Mass of left lung Assessment & Plan: infectious VS malignant , will order fungal serology , will need CT chest with contrast for confirmation . may need bronch or biopsy for definitive diagnosis . will D/W PULMONARY Subjective ROS Limited/Unobtainable: Yes Allergies: Coded Allergies: GABAPENTIN (Unverified Allergy, Unknown, 06/14/19) Subjective she was resting in bed , quiet, nonverbal, awake, no cough or hemoptysis today , no fever today. Objective Vital Signs Last 24 Hour Vital Signs Date Time Temp Pulse Resp B/P (MAP) Pulse Ox O2 Delivery O2 Flow Rate FiO2 06/23/19 12:00 98.6 76 17 124/81 (95) 95 06/23/19 09:00 Room Air 06/23/19 08:00 98.9 84 20 121/62 (81) 97 06/23/19 07:51 85 18 96 Room Air 21 06/23/19 04:00 99.0 87 20 128/59 (82) 98 06/23/19 00:00 99.0 86 22 116/94 (101) 99 06/22/19 21:00 Room Air 06/22/19 20:49 98.2 68 21 107/51 (69) 99 06/22/19 19:43 80 18 96 Room Air 21 Height (Feet): 3 Height (Inches): 0.00 Weight (Pounds): 185 General Appearance: WD/WN, no acute distress HEENT: normocephalic, atraumatic, anicteric, mucous membranes moist Respiratory/Chest: chest wall non-tender, lungs clear, normal breath sounds, no respiratory distress, no accessory muscle use Cardiovascular: normal peripheral pulses, normal rate, regular rhythm, no gallop/murmur, no JVD Abdomen: normal bowel sounds, soft, non tender, no organomegaly, non distended , no mass, no scars Genitourinary: normal external genitalia Extremities: no cyanosis, no clubbing Skin: no rash, no lesions, ulcers Neurologic/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, alert, unresponsiveness Lymphatic: no neck adenopathy, no groin adenopathy Musculoskeletal: normal muscle bulk, no effusion Microbiology Date/Time Source Procedure Growth Status 06/21/19 19:55 Blood Blood Culture - Preliminary NO GROWTH AFTER 24 HOURS Resulted 06/21/19 19:40 Blood Blood Culture - Preliminary NO GROWTH AFTER 24 HOURS Resulted Laboratory Tests Test 06/23/19 04:40 White Blood Count 8.7 K/UL (4.8-10.8) Red Blood Count 2.96 M/UL (4.20-5.40) L Hemoglobin 8.5 G/DL (12.0-16.0) L Hematocrit 27.8 % (37.0-47.0) L Mean Corpuscular Volume 94 FL (80-99) Mean Corpuscular Hemoglobin 28.7 PG (27.0-31.0) Mean Corpuscular Hemoglobin Concent 30.5 G/DL (32.0-36.0) L Red Cell Distribution Width 17.2 % (11.6-14.8) H Platelet Count 188 K/UL (150-450) Mean Platelet Volume 6.1 FL (6.5-10.1) L Neutrophils (%) (Auto) 82.1 % (45.0-75.0) H Lymphocytes (%) (Auto) 9.9 % (20.0-45.0) L Monocytes (%) (Auto) 3.5 % (1.0-10.0) Eosinophils (%) (Auto) 4.1 % (0.0-3.0) H Basophils (%) (Auto) 0.5 % (0.0-2.0) Sodium Level 143 MMOL/L (136-145) Potassium Level 3.7 MMOL/L (3.5-5.1) Chloride Level 108 MMOL/L (98-107) H Carbon Dioxide Level 28 MMOL/L (21-32) Anion Gap 7 mmol/L (5-15) Blood Urea Nitrogen 47 mg/dL (7-18) H Creatinine 7.3 MG/DL (0.55-1.30) H Estimat Glomerular Filtration Rate mL/min (>60) Glucose Level 82 MG/DL (74-106) Calcium Level 9.1 MG/DL (8.5-10.1) Current Medications Medications (Trade) Dose Ordered Sig/Selene Route PRN Reason Start Time Stop Time Status Last Admin Dose Admin Acetaminophen (Tylenol) 650 mg Q4H PRN GT Fever 06/20/19 13:45 07/14/19 13:44 06/21/19 16:09 Albuterol/ Ipratropium (Albuterol/ Ipratropium) 3 ml Q4H PRN HHN Shortness of Breath 06/20/19 13:45 06/24/19 13:44 Dextrose (Dextrose 50%) 25 ml Q30M PRN IV Hypoglycemia 06/20/19 13:45 07/18/19 20:12 Dextrose (Dextrose 50%) 50 ml Q30M PRN IV hypoglycemia 06/20/19 13:45 07/18/19 20:14 Ertapenem (INVanz) 0.5 gm Q24H IM 06/20/19 18:00 07/01/19 23:00 06/22/19 18:33 Fluconazole (Diflucan) 200 mg Q24H GT 06/21/19 21:00 06/28/19 20:59 06/22/19 20:59 Hydralazine HCl (Apresoline) 25 mg Q6H PRN GT For High Blood Pressure 06/20/19 13:45 07/14/19 13:44 Insulin Aspart (NovoLOG) BEFORE MEALS AND HS SUBQ 06/20/19 16:30 07/14/19 20:59 06/21/19 21:39 Lansoprazole (Prevacid) 30 mg BID GT 06/21/19 12:00 07/21/19 11:59 06/23/19 08:50 Linezolid (Zyvox) 600 mg EVERY 12 HOURS GT 06/20/19 21:00 07/01/19 23:00 06/23/19 08:50 Midodrine (Pro-Amatine) 10 mg THREE TIMES A DAY GT 06/21/19 13:00 07/21/19 12:59 06/23/19 08:50 Ondansetron HCl (Zofran) 4 mg Q6H PRN IVP Nausea & Vomiting 06/20/19 13:45 07/14/19 13:44 Zinc Sulfate (Zinc Sulfate) 220 mg DAILY GT 06/21/19 09:00 06/30/19 08:59 06/23/19 08:50 Morteza Castillo M.D. Jun 23, 2019 13:59
--- NOTE | 2019-06-23 14:10 | Diagnostic Imaging Report ---
Indication: Multiple chronic wounds on the buttock and sacrum Technique: IV administration 23.9 mCi 99 M technetium MDP. Flow, blood pool, and static images were obtained over the buttock and sacral region. Comparison: No correlative plain films are available Findings: Prominent tracer activity is seen in the expected region of the gluteal crease on the flow and blood pool images, possibly correlating to the area of ulceration reported clinically. No unusual tracer accumulation is demonstrated on the static images. Impression: Increased flow and blood pool activity in the expected region of the gluteal crease, may indicate hyperemia related to stated clinical history of ulcers in this region. No definite abnormal osseous activity to suggest osteomyelitis, however.
--- NOTE | 2019-06-23 15:49 | Surgery Progress Note ---
Surgery Progress Note Subjective Procedure Performed removal of right femoral central venous catheter Symptoms: improved Objective Last 24 Hour Vital Signs Date Time Temp Pulse Resp B/P (MAP) Pulse Ox O2 Delivery O2 Flow Rate FiO2 06/23/19 12:00 98.6 76 17 124/81 (95) 95 06/23/19 09:00 Room Air 06/23/19 08:00 98.9 84 20 121/62 (81) 97 06/23/19 07:51 85 18 96 Room Air 21 06/23/19 04:00 99.0 87 20 128/59 (82) 98 06/23/19 00:00 99.0 86 22 116/94 (101) 99 06/22/19 21:00 Room Air 06/22/19 20:49 98.2 68 21 107/51 (69) 99 06/22/19 19:43 80 18 96 Room Air 21 I&O Intake and Output 06/22/19 06/23/19 19:00 07:00 Intake Total 680 ml 810 ml Balance 680 ml 810 ml Free Water 200 ml 330 ml Tube Feeding 480 ml 480 ml # Voids 2 # Bowel Movements 2 Dressing: saturated Wound: clean Cardiovascular: RSR Respiratory: clear Abdomen: soft, present bowel sounds, non-distended Extremities: no cyanosis Laboratory Tests Test 06/23/19 04:40 White Blood Count 8.7 K/UL (4.8-10.8) Red Blood Count 2.96 M/UL (4.20-5.40) L Hemoglobin 8.5 G/DL (12.0-16.0) L Hematocrit 27.8 % (37.0-47.0) L Mean Corpuscular Volume 94 FL (80-99) Mean Corpuscular Hemoglobin 28.7 PG (27.0-31.0) Mean Corpuscular Hemoglobin Concent 30.5 G/DL (32.0-36.0) L Red Cell Distribution Width 17.2 % (11.6-14.8) H Platelet Count 188 K/UL (150-450) Mean Platelet Volume 6.1 FL (6.5-10.1) L Neutrophils (%) (Auto) 82.1 % (45.0-75.0) H Lymphocytes (%) (Auto) 9.9 % (20.0-45.0) L Monocytes (%) (Auto) 3.5 % (1.0-10.0) Eosinophils (%) (Auto) 4.1 % (0.0-3.0) H Basophils (%) (Auto) 0.5 % (0.0-2.0) Sodium Level 143 MMOL/L (136-145) Potassium Level 3.7 MMOL/L (3.5-5.1) Chloride Level 108 MMOL/L (98-107) H Carbon Dioxide Level 28 MMOL/L (21-32) Anion Gap 7 mmol/L (5-15) Blood Urea Nitrogen 47 mg/dL (7-18) H Creatinine 7.3 MG/DL (0.55-1.30) H Estimat Glomerular Filtration Rate mL/min (>60) Glucose Level 82 MG/DL (74-106) Calcium Level 9.1 MG/DL (8.5-10.1) Plan Problems: (1) Decubitus skin ulcer Assessment & Plan: Pt presented on admission with multiple full thickness pressure injuries R ,L buttocks and L ischium .R sacrum extending down to lower R buttocks erythematous with multiple areas with slough,(+) maceration along edges and periwound. Wound is malodorous. Wound with sloth that easily removed with non excisional debridement during clean up / washing. L sacrum extending into L lower buttocks erythematous ,macerated with scattered areas of yellow slough through out base of wound.Wound is malodorous. Small amt seropurulent exudate noted.Periwound noted to have darker skin tone that is indurated. L ischium darker than is normal skin tone and indurated with scattered open wound exuding small amt serous exudate. Incontinence associated dermatitis noted to perineum and medial aspects of both upper thigh.Skin is erythematous and denuded. Pt presented on admission in grossly unkempt state. Full thickness pressure injury to sacrum extending to R and L ischial regions.(L)18cm x (W)14cm. Sacral pressure injury measures(L)6cm x (W)8cm x (D)0.4cm. Scattered slough at base of wound. Muscle is palpable. Wound is now viable. Full thickness wounds R and L buttocks with scattered slough. Non-blanchable erythema with additional skin erosions periwound. Moisture Intertrigo noted to bilat breasts folds. abd folds and bilat groin areas. Skin is dry dry and flaky to both AKA stumps. Small partial thickness wound noted to L AKA (L)0.4cm x (W)0.4cm. Base of wound is moist and viable. Wound cleaned at bedside and non-excisional debridement performed of [facility]. Underlying tissue fairly healthy. The is now a stage IV sacral decubitus ulcer in the central portion right above the coccyx with palpable musculature. Wound is deteriorated since last admission. Tx.Plan: Cleanse wound Sacrum with saline. Apply Therahoney to Sacrum,R and L buttocks. Apply Moisture Barrier Paste periwound. Cover with Optifoam drsg Daily and prn. Apply Moisture Barrier Paste to folds of both breasts,abd folds ,and bilat groin areas with each incontinence care. Apply Cavilon Skin Barrier to L AKA daily. Reposition at least every 2hours or as tolerated. Off-load heels with pillow. APM/TIAGO mattress overlay. (2) Sepsis Assessment & Plan: 84-year-old female with hypotension, tachycardia, leukocytosis, abnormal labs. Currently in intensive care unit line removed micro noted and negative growh will monitor On IV antibiotics as per infectious disease Trend labs We will follow with recommendations (3) GI bleed Assessment & Plan: Noted to have hematemesis while in nursing facility. No acute episode of hematemesis at this time stool is noted to be fairly dark Appreciate GI input (4) G tube feedings Assessment & Plan: DAILY ESTIMATED NEEDS: Needs based on ESRD/HD, wound/ 55kg adj for BL AKA 30-35 kcals/kg 3623-0985 total kcals 1.25-1.8 g protein/kg 69-99 g total protein 20-25 mL/kg 3585-3762 total fluid mLs NUTRITION DIAGNOSIS: * Increased kcal/pro intake needs R/T renal dysfunction, wound healing as evidenced by ESRD dx, on HD. admitted w/ advanced wounds including full thickness wounds x3, refer to WC maria elena (CURRENT TF: Glucerna 1.2 @55) ENTERAL NUTRITION RECOMMENDATIONS: Nepro @ 40ml/hr x 24 hrs + Prosource x1 daily to provide 960ml, 1728kcal, 78g + 11g pro, 698ml free water * WITH HEMODYNAMIC STABILITY, resume TF * Initiate Nepro @ 20ml/hr x 6 hrs, advance 10ml q 4-6 hrs as tolerated to goal. * HOB over 30 degrees/ water flush per MD ADDITIONAL RECOMMENDATIONS: * Calibrated dry wt post HD * Wound healing: add Nephrovite 1 tab QD - Add MAX BID - Add ZnSO4 220mg daily x10 days * Trophic feeds when on pressor support * Monitor Willian Avila Jun 23, 2019 15:49
[2019-06-23 15:55] VITALS: BP 79/54
--- NOTE | 2019-06-23 16:21 | Nephrology Progress Note ---
Assessment/Plan Problem List: (1) ESRD (end stage renal disease) on dialysis (2) GI bleed (3) Decubitus skin ulcer (4) Anemia Plan HD as tolerated Discussed with HD RN follow labs abxs Subjective Subjective pt was seen on dialysis Objective Objective Last 24 Hour Vital Signs Date Time Temp Pulse Resp B/P (MAP) Pulse Ox O2 Delivery O2 Flow Rate FiO2 06/23/19 15:55 97.4 89 17 79/54 (62) 98 06/23/19 12:00 98.6 76 17 124/81 (95) 95 06/23/19 09:00 Room Air 06/23/19 08:00 98.9 84 20 121/62 (81) 97 06/23/19 07:51 85 18 96 Room Air 21 06/23/19 04:00 99.0 87 20 128/59 (82) 98 06/23/19 00:00 99.0 86 22 116/94 (101) 99 06/22/19 21:00 Room Air 06/22/19 20:49 98.2 68 21 107/51 (69) 99 06/22/19 19:43 80 18 96 Room Air 21 Intake and Output 06/22/19 06/23/19 19:00 07:00 Intake Total 680 ml 810 ml Balance 680 ml 810 ml Free Water 200 ml 330 ml Tube Feeding 480 ml 480 ml # Voids 2 # Bowel Movements 2 Laboratory Tests 06/23/19 04:40: White Blood Count 8.7, Red Blood Count 2.96L, Hemoglobin 8.5L, Hematocrit 27.8L , Mean Corpuscular Volume 94, Mean Corpuscular Hemoglobin 28.7, Mean Corpuscular Hemoglobin Concent 30.5L, Red Cell Distribution Width 17.2H, Platelet Count 188, Mean Platelet Volume 6.1L, Neutrophils (%) (Auto) 82.1H, Lymphocytes (%) (Auto) 9.9L, Monocytes (%) (Auto) 3.5, Eosinophils (%) (Auto) 4.1H, Basophils (%) (Auto) 0.5, Sodium Level 143, Potassium Level 3.7, Chloride Level 108H, Carbon Dioxide Level 28, Anion Gap 7, Blood Urea Nitrogen 47H, Creatinine 7.3H, Estimat Glomerular Filtration Rate , Glucose Level 82, Calcium Level 9.1, Coccidioides Antibody (Comp Fix) [Pending] Height (Feet): 3 Height (Inches): 0.00 Weight (Pounds): 185 Cardiovascular: normal rate Respiratory/Chest: lungs clear Aftab Arnold MD Jun 23, 2019 16:21
--- NOTE | 2019-06-23 17:02 | Cardiac Electrophysiology PN ---
Assessment/Plan Assessment/Plan 1. S/P septic shock. Resolved. The patient is on IV antibiotic. Her EKG showed no acute ischemic changes. Echo Nl EF 60%. RFV line was removed. 2. End-stage renal disease, on hemodialysis. 3. Gastrointestinal bleed and anemia. S/P EGD by Dr perales Gastritis and Duodenal ulceration 4. Decubitus ulcer. 5. Hypertension 6. Diabetes. 7. Dysphagia, status post G-tube. 8. Fever 101. FU by Dr Castillo Awaiting department of health for DC DW RN Subjective Subjective Just had HD. Nonverbal. RN at bedside. EGD by Dr Perales showed Gastritis and Duodenal ulceration. Awaiting Dept of health clearance for questionable hemoptysis Objective Last 24 Hour Vital Signs Date Time Temp Pulse Resp B/P (MAP) Pulse Ox O2 Delivery O2 Flow Rate FiO2 06/23/19 15:55 97.4 89 17 79/54 (62) 98 06/23/19 12:00 98.6 76 17 124/81 (95) 95 06/23/19 09:00 Room Air 06/23/19 08:00 98.9 84 20 121/62 (81) 97 06/23/19 07:51 85 18 96 Room Air 21 06/23/19 04:00 99.0 87 20 128/59 (82) 98 06/23/19 00:00 99.0 86 22 116/94 (101) 99 06/22/19 21:00 Room Air 06/22/19 20:49 98.2 68 21 107/51 (69) 99 06/22/19 19:43 80 18 96 Room Air 21 Intake and Output 06/22/19 06/23/19 19:00 07:00 Intake Total 680 ml 810 ml Balance 680 ml 810 ml Free Water 200 ml 330 ml Tube Feeding 480 ml 480 ml # Voids 2 # Bowel Movements 2 Laboratory Tests Test 06/23/19 04:40 White Blood Count 8.7 K/UL (4.8-10.8) Red Blood Count 2.96 M/UL (4.20-5.40) L Hemoglobin 8.5 G/DL (12.0-16.0) L Hematocrit 27.8 % (37.0-47.0) L Mean Corpuscular Volume 94 FL (80-99) Mean Corpuscular Hemoglobin 28.7 PG (27.0-31.0) Mean Corpuscular Hemoglobin Concent 30.5 G/DL (32.0-36.0) L Red Cell Distribution Width 17.2 % (11.6-14.8) H Platelet Count 188 K/UL (150-450) Mean Platelet Volume 6.1 FL (6.5-10.1) L Neutrophils (%) (Auto) 82.1 % (45.0-75.0) H Lymphocytes (%) (Auto) 9.9 % (20.0-45.0) L Monocytes (%) (Auto) 3.5 % (1.0-10.0) Eosinophils (%) (Auto) 4.1 % (0.0-3.0) H Basophils (%) (Auto) 0.5 % (0.0-2.0) Sodium Level 143 MMOL/L (136-145) Potassium Level 3.7 MMOL/L (3.5-5.1) Chloride Level 108 MMOL/L (98-107) H Carbon Dioxide Level 28 MMOL/L (21-32) Anion Gap 7 mmol/L (5-15) Blood Urea Nitrogen 47 mg/dL (7-18) H Creatinine 7.3 MG/DL (0.55-1.30) H Estimat Glomerular Filtration Rate mL/min (>60) Glucose Level 82 MG/DL (74-106) Calcium Level 9.1 MG/DL (8.5-10.1) Coccidioides Antibody (Comp Fix) Pending Microbiology Date/Time Source Procedure Growth Status 06/21/19 19:55 Blood Blood Culture - Preliminary NO GROWTH AFTER 24 HOURS Resulted 06/21/19 19:40 Blood Blood Culture - Preliminary NO GROWTH AFTER 24 HOURS Resulted Objective HEAD AND NECK: Shows no JVD. LUNGS: Coarse rhonchi. CARDIOVASCULAR: Regular S1 and S2 with no gallop. ABDOMEN: Soft. G-tube. EXTREMITIES: Bilateral above-knee amputation. She has a triple-lumen in the right femoral area and dialysis access in the right arm. Will Osborne MD Jun 23, 2019 17:02
--- NOTE | 2019-06-23 17:50 | Pulmonology Progress Note ---
Assessment/Plan Problems: (1) Septic shock (2) GI bleed (3) Anemia (4) Decubitus skin ulcer (5) ESRD (end stage renal disease) on dialysis (6) DM (diabetes mellitus) (7) G tube feedings (8) HTN (hypertension) Assessment/Plan dc was canceled b/o lack of clearance from [facility] hear rate, bp stable h/h stable EGD done, tolerating feeding check electrolytes med/surg Ct chest reviewed, doubt any lobulated mass. No need to get a contrast CT, considering her underlying multiplicity of comorbidities. Subjective ROS Limited/Unobtainable: No Constitutional: Reports: no symptoms HEENT: Repors: no symptoms Respiratory: Reports: no symptoms Cardiovascular: Reports: no symptoms Allergies: Coded Allergies: GABAPENTIN (Unverified Allergy, Unknown, 06/14/19) Objective Last 24 Hour Vital Signs Date Time Temp Pulse Resp B/P (MAP) Pulse Ox O2 Delivery O2 Flow Rate FiO2 06/23/19 15:55 97.4 89 17 79/54 (62) 98 06/23/19 12:00 98.6 76 17 124/81 (95) 95 06/23/19 09:00 Room Air 06/23/19 08:00 98.9 84 20 121/62 (81) 97 06/23/19 07:51 85 18 96 Room Air 21 06/23/19 04:00 99.0 87 20 128/59 (82) 98 06/23/19 00:00 99.0 86 22 116/94 (101) 99 06/22/19 21:00 Room Air 06/22/19 20:49 98.2 68 21 107/51 (69) 99 06/22/19 19:43 80 18 96 Room Air 21 Intake and Output 06/22/19 06/23/19 19:00 07:00 Intake Total 680 ml 810 ml Balance 680 ml 810 ml Free Water 200 ml 330 ml Tube Feeding 480 ml 480 ml # Voids 2 # Bowel Movements 2 General Appearance: WD/WN HEENT: normocephalic, anicteric Respiratory/Chest: chest wall non-tender, lungs clear Breasts: no masses Cardiovascular: normal peripheral pulses Abdomen: normal bowel sounds, soft, non tender Genitourinary: normal external genitalia Skin: no rash Neurologic/Psychiatric: 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 grossly normal Microbiology Date/Time Source Procedure Growth Status 7/31/19 19:55 Blood Blood Culture - Preliminary NO GROWTH AFTER 24 HOURS Resulted 06/21/19 19:40 Blood Blood Culture - Preliminary NO GROWTH AFTER 24 HOURS Resulted Laboratory Tests 06/23/19 04:40: White Blood Count 8.7, Red Blood Count 2.96L, Hemoglobin 8.5L, Hematocrit 27.8L , Mean Corpuscular Volume 94, Mean Corpuscular Hemoglobin 28.7, Mean Corpuscular Hemoglobin Concent 30.5L, Red Cell Distribution Width 17.2H, Platelet Count 188, Mean Platelet Volume 6.1L, Neutrophils (%) (Auto) 82.1H, Lymphocytes (%) (Auto) 9.9L, Monocytes (%) (Auto) 3.5, Eosinophils (%) (Auto) 4.1H, Basophils (%) (Auto) 0.5, Sodium Level 143, Potassium Level 3.7, Chloride Level 108H, Carbon Dioxide Level 28, Anion Gap 7, Blood Urea Nitrogen 47H, Creatinine 7.3H, Estimat Glomerular Filtration Rate , Glucose Level 82, Calcium Level 9.1, Coccidioides Antibody (Comp Fix) [Pending] Current Medications Medications (Trade) Dose Ordered Sig/Selene Route PRN Reason Start Time Stop Time Status Last Admin Dose Admin Acetaminophen (Tylenol) 650 mg Q4H PRN GT Fever 06/20/19 13:45 07/14/19 13:44 06/21/19 16:09 Albuterol/ Ipratropium (Albuterol/ Ipratropium) 3 ml Q4H PRN HHN Shortness of Breath 06/20/19 13:45 06/24/19 13:44 Dextrose (Dextrose 50%) 25 ml Q30M PRN IV Hypoglycemia 06/20/19 13:45 07/18/19 20:12 Dextrose (Dextrose 50%) 50 ml Q30M PRN IV hypoglycemia 06/20/19 13:45 07/18/19 20:14 Ertapenem (INVanz) 0.5 gm Q24H IM 06/20/19 18:00 07/01/19 23:00 06/22/19 18:33 Fluconazole (Diflucan) 200 mg Q24H GT 06/21/19 21:00 06/28/19 20:59 06/22/19 20:59 Hydralazine HCl (Apresoline) 25 mg Q6H PRN GT For High Blood Pressure 06/20/19 13:45 07/14/19 13:44 Insulin Aspart (NovoLOG) BEFORE MEALS AND HS SUBQ 06/20/19 16:30 07/14/19 20:59 06/21/19 21:39 Lansoprazole (Prevacid) 30 mg BID GT 06/21/19 12:00 07/21/19 11:59 06/23/19 17:05 Linezolid (Zyvox) 600 mg EVERY 12 HOURS GT 06/20/19 21:00 07/01/19 23:00 06/23/19 08:50 Midodrine (Pro-Amatine) 10 mg THREE TIMES A DAY GT 06/21/19 13:00 07/21/19 12:59 06/23/19 17:05 Ondansetron HCl (Zofran) 4 mg Q6H PRN IVP Nausea & Vomiting 06/20/19 13:45 07/14/19 13:44 Zinc Sulfate (Zinc Sulfate) 220 mg DAILY GT 06/21/19 09:00 06/30/19 08:59 06/23/19 08:50 Rosemary Lui MD Jun 23, 2019 17:50
[2019-06-23] MEDS: Ertapenem (INVanz) 1gm Inj IM SCH (18:08)
[2019-06-23 20:00] VITALS: BP 118/47
[2019-06-23] MEDS: Fluconazole 100mg tab GT SCH (21:23)
[2019-06-24] VITALS: BP 113/50
[2019-06-24 04:00] VITALS: BP 120/50
[2019-06-24] MEDS: NovoLOG Insulin Flexpen SUBQ SCH ×4 (06:19→20:35)
[2019-06-24 07:48] LABS: BASOPHILS % (AUTO) 0.4 % (0.0-2.0); HEMATOCRIT 28.4 % (37.0-47.0); HEMOGLOBIN 8.6 G/DL (12.0-16.0); LYMPHOCYTES % (AUTO) 11.5 % (20.0-45.0); MEAN CORPUSCULAR VOLUME 95 FL (80-99); MONOCYTES % (AUTO) 3.6 % (1.0-10.0); NEUTROPHILS % (AUTO) 80.4 % (45.0-75.0); PLATELET COUNT 179 K/UL (150-450); RED BLOOD COUNT 2.99 M/UL (4.20-5.40); RED CELL DISTRIBUTION WIDTH 16.8 % (11.6-14.8); WHITE BLOOD COUNT 8.6 K/UL (4.8-10.8)
[2019-06-24 08:00] VITALS: BP 106/46
--- NOTE | 2019-06-24 08:21 | General Progress Note ---
Assessment/Plan Status: unchanged Assessment/Plan: (1) GI bleed ICD Codes: K92.2 - Gastrointestinal hemorrhage, unspecified SNOMED: 15077722 (2) Anemia due to chronic kidney disease ICD Codes: N18.9 - Chronic kidney disease, unspecified; D63.1 - Anemia in chronic kidney disease SNOMED: 279851962 (3) Septic shock ICD Codes: A41.9 - Sepsis, unspecified organism; R65.21 - Severe sepsis with septic shock SNOMED: 26244897 (4) G tube feedings ICD Codes: Z93.1 - Gastrostomy status SNOMED: 600354332, 710224087, 346470457 Status: unchanged Status Narrative Discussed with Dr. Perales. Assessment/Plan SUMMARY OF FINDINGS: 1. Medium-sized hiatal hernia. 2. Gastritis, status post biopsy. 3. Duodenal ulceration without any evidence of active bleeding or any visible vessel or adherent clot. RECOMMENDATIONS: tube feeding. Prevacid per G-tube 30 mg daily. Monitor hemoglobin and hematocrit, transfuse as needed. Monitor labs. had BM dc planning per primary team Subjective ROS Limited/Unobtainable: No Allergies: Coded Allergies: GABAPENTIN (Unverified Allergy, Unknown, 06/14/19) Objective Last 24 Hour Vital Signs Date Time Temp Pulse Resp B/P (MAP) Pulse Ox O2 Delivery O2 Flow Rate FiO2 06/24/19 04:00 99.0 80 16 120/50 (73) 97 06/24/19 00:00 98.5 85 16 113/50 (71) 98 06/23/19 21:00 Room Air 06/23/19 20:00 98.9 87 16 118/47 (70) 98 06/23/19 19:24 88 18 97 Room Air 21 06/23/19 15:55 97.4 89 17 79/54 (62) 98 06/23/19 12:00 98.6 76 17 124/81 (95) 95 06/23/19 09:00 Room Air Intake and Output 06/23/19 06/24/19 18:59 06:59 Intake Total 440 ml 740 ml Balance 440 ml 740 ml Free Water 300 ml Tube Feeding 440 ml 440 ml # Bowel Movements 1 Laboratory Tests 06/24/19 07:44: White Blood Count 8.6, Red Blood Count 2.99L, Hemoglobin 8.6L, Hematocrit 28.4L , Mean Corpuscular Volume 95, Mean Corpuscular Hemoglobin 28.8, Mean Corpuscular Hemoglobin Concent 30.4L, Red Cell Distribution Width 16.8H, Platelet Count 179, Mean Platelet Volume 6.2L, Neutrophils (%) (Auto) 80.4H, Lymphocytes (%) (Auto) 11.5L, Monocytes (%) (Auto) 3.6, Eosinophils (%) (Auto) 4.0H, Basophils (%) (Auto) 0.4 Height (Feet): 3 Height (Inches): 0.00 Weight (Pounds): 181 General Appearance: no apparent distress EENT: normal ENT inspection Neck: supple Cardiovascular: normal rate Respiratory/Chest: decreased breath sounds Abdomen: normal bowel sounds, non tender, soft Extremities: non-tender Ezequiel Perales MD Jun 24, 2019 08:21
[2019-06-24 08:28] LABS: ANION GAP 6 mmol/L (5-15); BLOOD UREA NITROGEN 33 mg/dL (7-18); CALCIUM 9.1 MG/DL (8.5-10.1); CARBON DIOXIDE 31 MMOL/L (21-32); CHLORIDE 105 MMOL/L (98-107); CREATININE 5.3 MG/DL (0.55-1.30); POTASSIUM 4.1 MMOL/L (3.5-5.1); SODIUM 142 MMOL/L (136-145)
[2019-06-24] MEDS: Midodrine 10mg tab GT SCH ×3 (09:11→18:33)
[2019-06-24] MEDS: Zinc Sulfate 220mg cap GT SCH (09:12)
--- NOTE | 2019-06-24 10:31 | Pulmonology Progress Note ---
Assessment/Plan Assessment/Plan ASSESSMENT GI bleeding Anemia chronic disease End-stage renal disease, on hemodialysis Septic shock resolved, off Levophed Sepsis with Staph bacteremia History of prior TB Multiply compressive compression fracture, likely old Moderate mitral regurgitation Aortic stenosis Mild pulmonary hypertension Decubitus ulcer , present on admission Dysphagia , feeding by G-tube History of hypertension Diabetes mellitus History of CVA PVD with bilateral AKA PLAN OF CARE MS floor O2 PRN titrate to keep pulse ox above 92, HHN as needed DVT prophylaxis hemodynamic status stable, off pressors, continue midodrine CT of the chest 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 AFB smear x3- venous duplex bilateral lower extremity negative Echo with pEF 60%, , moderate MR, mild pulmonary HTN cardio follows strict aspiration precaution, G-tube feeding abx as per ID initial blood culture with staph epidermidis, repeated blood culture 06/17 , . 06/20 all negative catheter tip cx-negative per ID recs will need 2 wks of abx after firts negative BCX ; EOT 07/01 stool for C. difficile negative wound care as per surgeon recommendation offload bone scan revealed no definite evidence of osteomyelitis s/p EGD, with findings of hiatal hernia, gastritis, status post biopsy, duodenal ulceration, no evidence of acute bleeding biopsy of gastric antrum showed benign gastric mucosa with mild to moderate chronic gastritis, negative for Helicobacter, negative for intestinal metaplasia , dysplasia , or malignancy PPI bowel regimen monitor H&H with goal to keep hemoglobin above 7 anemia work-up c/w anemia of chronic disease HD as per biomedical engineering technician with close monitoring of volumes, renal parameters and electrolytes pain management bowel regimen supportive care BS management with SSI, hemoglobin A1c -5.2 BP remains stable, off antihypertensive medication case discussed and evaluated by supervising physician Subjective Allergies: Coded Allergies: GABAPENTIN (Unverified Allergy, Unknown, 06/14/19) Subjective remains afebrile, no leukocytosis no signs of resp distress BCX 06/21 negative Objective Last 24 Hour Vital Signs Date Time Temp Pulse Resp B/P (MAP) Pulse Ox O2 Delivery O2 Flow Rate FiO2 06/24/19 09:28 80 18 98 Room Air 21 06/24/19 08:00 97.1 85 20 106/46 (66) 100 06/24/19 04:00 99.0 80 16 120/50 (73) 97 06/24/19 00:00 98.5 85 16 113/50 (71) 98 06/23/19 21:00 Room Air 06/23/19 20:00 98.9 87 16 118/47 (70) 98 06/23/19 19:24 88 18 97 Room Air 21 06/23/19 15:55 97.4 89 17 79/54 (62) 98 06/23/19 12:00 98.6 76 17 124/81 (95) 95 Intake and Output 06/23/19 06/24/19 19:00 07:00 Intake Total 440 ml 740 ml Balance 440 ml 740 ml Free Water 300 ml Tube Feeding 440 ml 440 ml # Bowel Movements 1 General Appearance: no acute distress, other - chronically ill looking, obese, poorly responsive , bedridden , AA female HEENT: normocephalic, atraumatic, anicteric Respiratory/Chest: no respiratory distress, decreased breath sounds Cardiovascular: normal rate, other - RUE AV shuntm Abdomen: normal bowel sounds, soft, non tender - obese Extremities: other - bilateral AKA Skin: other - decub, see wound pictures Neurologic/Psychiatric: abnormal gait - bedridden , other - poorly responsive Musculoskeletal: other - bilateral AKA Microbiology Date/Time Source Procedure Growth Status 06/21/19 19:55 Blood Blood Culture - Preliminary NO GROWTH AFTER 48 HOURS Resulted 06/21/19 19:40 Blood Blood Culture - Preliminary NO GROWTH AFTER 48 HOURS Resulted Laboratory Tests 06/24/19 07:44: White Blood Count 8.6, Red Blood Count 2.99L, Hemoglobin 8.6L, Hematocrit 28.4L , Mean Corpuscular Volume 95, Mean Corpuscular Hemoglobin 28.8, Mean Corpuscular Hemoglobin Concent 30.4L, Red Cell Distribution Width 16.8H, Platelet Count 179, Mean Platelet Volume 6.2L, Neutrophils (%) (Auto) 80.4H, Lymphocytes (%) (Auto) 11.5L, Monocytes (%) (Auto) 3.6, Eosinophils (%) (Auto) 4.0H, Basophils (%) (Auto) 0.4, Sodium Level 142, Potassium Level 4.1, Chloride Level 105, Carbon Dioxide Level 31, Anion Gap 6, Blood Urea Nitrogen 33H, Creatinine 5.3H, Estimat Glomerular Filtration Rate , Glucose Level 80, Calcium Level 9.1 Current Medications Medications (Trade) Dose Ordered Sig/Selene Route PRN Reason Start Time Stop Time Status Last Admin Dose Admin Acetaminophen (Tylenol) 650 mg Q4H PRN GT Fever 06/20/19 13:45 07/14/19 13:44 06/21/19 16:09 Albuterol/ Ipratropium (Albuterol/ Ipratropium) 3 ml Q4H PRN HHN Shortness of Breath 06/20/19 13:45 06/24/19 13:44 Dextrose (Dextrose 50%) 25 ml Q30M PRN IV Hypoglycemia 06/20/19 13:45 07/18/19 20:12 Dextrose (Dextrose 50%) 50 ml Q30M PRN IV hypoglycemia 06/20/19 13:45 07/18/19 20:14 Ertapenem (INVanz) 0.5 gm Q24H IM 06/20/19 18:00 07/01/19 23:00 06/23/19 18:08 Fluconazole (Diflucan) 200 mg Q24H GT 06/21/19 21:00 06/28/19 20:59 06/23/19 21:23 Hydralazine HCl (Apresoline) 25 mg Q6H PRN GT For High Blood Pressure 06/20/19 13:45 07/14/19 13:44 Insulin Aspart (NovoLOG) BEFORE MEALS AND HS SUBQ 06/20/19 16:30 07/14/19 20:59 06/21/19 21:39 Lansoprazole (Prevacid) 30 mg BID GT 06/21/19 12:00 07/21/19 11:59 06/24/19 09:11 Linezolid (Zyvox) 600 mg EVERY 12 HOURS GT 06/20/19 21:00 07/01/19 23:00 06/24/19 09:11 Midodrine (Pro-Amatine) 10 mg THREE TIMES A DAY GT 06/21/19 13:00 07/21/19 12:59 06/24/19 09:11 Ondansetron HCl (Zofran) 4 mg Q6H PRN IVP Nausea & Vomiting 06/20/19 13:45 07/14/19 13:44 Zinc Sulfate (Zinc Sulfate) 220 mg DAILY GT 06/21/19 09:00 06/30/19 08:59 06/24/19 09:12 Mai De NP Jun 24, 2019 10:31
--- NOTE | 2019-06-24 10:43 | General Progress Note ---
Assessment/Plan Status: stable, unchanged Assessment/Plan: 1. Fever - improved. responding to antifungal txt. cont fluconazole and Abx for now. bone scan negative for osteomyelitis. 2. Septic Shock - improved. off pressor and doing well. Cont Abx for now. ID following. In Med surg. 3. ESRD on HD - on HD 3x/wk. 4. Sacral pressure ulcer - surgery is following. 5. Upper GI bleed 2nd to duodenal ulcer - H/H currently stable. s/p One unit of PRBC. EGD showed Gastritis and nonbleeding duodenal ulcer. cont prevacid 30 mg bid. 6. Sepsis - cont IV Abx. ID following the patient. blood cultures showed staph Epidermatous. cont abx and antifungal for now. 7. HLD - cont home meds. 8. Gout - cont Allopurinol 9. H/O PVD 10. H/O DVT 11. DM II - cont SSI. 12. HTN - off meds and blood pressure is fine. 13. 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 still awaiting [facility] clearance for discharge. 14. Mass on left lung - most likely 2nd to fungal infection - fungal serology pending. fever improved as well. Pulmonary agrees that it is less likely malignancy and no CT with contrast needed due to multiple comorbidities. Subjective Date patient seen: Jun 24, 2019 Time patient seen: 10:25 Constitutional: Reports: no symptoms HEENT: Reports: no symptoms Cardiovascular: Reports: no symptoms Respiratory: Reports: cough Gastrointestinal/Abdominal: Reports: no symptoms Genitourinary: Reports: no symptoms Neurologic/Psychiatric: Reports: other - mute Endocrine: Reports: no symptoms Hematologic/Lymphatic: Reports: anemia Allergies: Coded Allergies: GABAPENTIN (Unverified Allergy, Unknown, 06/14/19) Subjective Patient is in Med Surg. awaiting [facility] clearance for discharge. afebrile. she is ESRD on HD. Objective Last 24 Hour Vital Signs Date Time Temp Pulse Resp B/P (MAP) Pulse Ox O2 Delivery O2 Flow Rate FiO2 06/24/19 09:28 80 18 98 Room Air 21 06/24/19 08:00 97.1 85 20 106/46 (66) 100 06/24/19 04:00 99.0 80 16 120/50 (73) 97 06/24/19 00:00 98.5 85 16 113/50 (71) 98 06/23/19 21:00 Room Air 06/23/19 20:00 98.9 87 16 118/47 (70) 98 06/23/19 19:24 88 18 97 Room Air 21 06/23/19 15:55 97.4 89 17 79/54 (62) 98 06/23/19 12:00 98.6 76 17 124/81 (95) 95 Intake and Output 06/23/19 06/24/19 19:00 07:00 Intake Total 440 ml 740 ml Balance 440 ml 740 ml Free Water 300 ml Tube Feeding 440 ml 440 ml # Bowel Movements 1 Laboratory Tests 06/24/19 07:44: White Blood Count 8.6, Red Blood Count 2.99L, Hemoglobin 8.6L, Hematocrit 28.4L , Mean Corpuscular Volume 95, Mean Corpuscular Hemoglobin 28.8, Mean Corpuscular Hemoglobin Concent 30.4L, Red Cell Distribution Width 16.8H, Platelet Count 179, Mean Platelet Volume 6.2L, Neutrophils (%) (Auto) 80.4H, Lymphocytes (%) (Auto) 11.5L, Monocytes (%) (Auto) 3.6, Eosinophils (%) (Auto) 4.0H, Basophils (%) (Auto) 0.4, Sodium Level 142, Potassium Level 4.1, Chloride Level 105, Carbon Dioxide Level 31, Anion Gap 6, Blood Urea Nitrogen 33H, Creatinine 5.3H, Estimat Glomerular Filtration Rate , Glucose Level 80, Calcium Level 9.1 Height (Feet): 3 Height (Inches): 0.00 Weight (Pounds): 181 General Appearance: no apparent distress EENT: normal ENT inspection Neck: non-tender, supple Cardiovascular: normal rate, regular rhythm Respiratory/Chest: lungs clear, normal breath sounds Abdomen: non tender, soft Extremities: other - bilateral above the knee amputation Neurologic: responsive Skin: warm/dry Pam Alcantar MD Jun 24, 2019 10:43
[2019-06-24 12:00] VITALS: BP 98/54
--- NOTE | 2019-06-24 12:22 | Surgery Progress Note ---
Surgery Progress Note Subjective Procedure Performed removal of right femoral central venous catheter Symptoms: improved, tolerating diet, voiding well, passing flatus, BM Objective Last 24 Hour Vital Signs Date Time Temp Pulse Resp B/P (MAP) Pulse Ox O2 Delivery O2 Flow Rate FiO2 06/24/19 09:28 80 18 98 Room Air 21 06/24/19 09:00 Room Air 06/24/19 08:00 97.1 85 20 106/46 (66) 100 06/24/19 04:00 99.0 80 16 120/50 (73) 97 06/24/19 00:00 98.5 85 16 113/50 (71) 98 06/23/19 21:00 Room Air 06/23/19 20:00 98.9 87 16 118/47 (70) 98 06/23/19 19:24 88 18 97 Room Air 21 06/23/19 15:55 97.4 89 17 79/54 (62) 98 I&O Intake and Output 06/23/19 06/24/19 19:00 07:00 Intake Total 440 ml 740 ml Balance 440 ml 740 ml Free Water 300 ml Tube Feeding 440 ml 440 ml # Bowel Movements 1 Dressing: saturated Wound: clean Cardiovascular: RSR Respiratory: clear Abdomen: soft, flat, non-tender, present bowel sounds Extremities: no cyanosis, other Laboratory Tests Test 06/24/19 07:44 White Blood Count 8.6 K/UL (4.8-10.8) Red Blood Count 2.99 M/UL (4.20-5.40) L Hemoglobin 8.6 G/DL (12.0-16.0) L Hematocrit 28.4 % (37.0-47.0) L Mean Corpuscular Volume 95 FL (80-99) Mean Corpuscular Hemoglobin 28.8 PG (27.0-31.0) Mean Corpuscular Hemoglobin Concent 30.4 G/DL (32.0-36.0) L Red Cell Distribution Width 16.8 % (11.6-14.8) H Platelet Count 179 K/UL (150-450) Mean Platelet Volume 6.2 FL (6.5-10.1) L Neutrophils (%) (Auto) 80.4 % (45.0-75.0) H Lymphocytes (%) (Auto) 11.5 % (20.0-45.0) L Monocytes (%) (Auto) 3.6 % (1.0-10.0) Eosinophils (%) (Auto) 4.0 % (0.0-3.0) H Basophils (%) (Auto) 0.4 % (0.0-2.0) Sodium Level 142 MMOL/L (136-145) Potassium Level 4.1 MMOL/L (3.5-5.1) Chloride Level 105 MMOL/L (98-107) Carbon Dioxide Level 31 MMOL/L (21-32) Anion Gap 6 mmol/L (5-15) Blood Urea Nitrogen 33 mg/dL (7-18) H Creatinine 5.3 MG/DL (0.55-1.30) H Estimat Glomerular Filtration Rate mL/min (>60) Glucose Level 80 MG/DL (74-106) Calcium Level 9.1 MG/DL (8.5-10.1) Plan Problems: (1) Decubitus skin ulcer Assessment & Plan: Pt presented on admission with multiple full thickness pressure injuries R ,L buttocks and L ischium .R sacrum extending down to lower R buttocks erythematous with multiple areas with slough,(+) maceration along edges and periwound. Wound is malodorous. Wound with sloth that easily removed with non excisional debridement during clean up / washing. L sacrum extending into L lower buttocks erythematous ,macerated with scattered areas of yellow slough through out base of wound.Wound is malodorous. Small amt seropurulent exudate noted.Periwound noted to have darker skin tone that is indurated. L ischium darker than is normal skin tone and indurated with scattered open wound exuding small amt serous exudate. Incontinence associated dermatitis noted to perineum and medial aspects of both upper thigh.Skin is erythematous and denuded. Pt presented on admission in grossly unkempt state. Full thickness pressure injury to sacrum extending to R and L ischial regions.(L)18cm x (W)14cm. Sacral pressure injury measures(L)6cm x (W)8cm x (D)0.4cm. Scattered slough at base of wound. Muscle is palpable. Wound is now viable. Full thickness wounds R and L buttocks with scattered slough. Non-blanchable erythema with additional skin erosions periwound. Moisture Intertrigo noted to bilat breasts folds. abd folds and bilat groin areas. Skin is dry dry and flaky to both AKA stumps. Small partial thickness wound noted to L AKA (L)0.4cm x (W)0.4cm. Base of wound is moist and viable. Wound cleaned at bedside and non-excisional debridement performed of slot. Underlying tissue fairly healthy. The is now a stage IV sacral decubitus ulcer in the central portion right above the coccyx with palpable musculature. Wound is deteriorated since last admission. Tx.Plan: Cleanse wound Sacrum with saline. Apply Therahoney to Sacrum,R and L buttocks. Apply Moisture Barrier Paste periwound. Cover with Optifoam drsg Daily and prn. Apply Moisture Barrier Paste to folds of both breasts,abd folds ,and bilat groin areas with each incontinence care. Apply Cavilon Skin Barrier to L AKA daily. Reposition at least every 2hours or as tolerated. Off-load heels with pillow. APM/TIAGO mattress overlay. (2) Sepsis Assessment & Plan: 84-year-old female with hypotension, tachycardia, leukocytosis, abnormal labs. Currently in intensive care unit line removed micro noted and negative growh will monitor On IV antibiotics as per infectious disease Trend labs We will follow with recommendations (3) GI bleed Assessment & Plan: Noted to have hematemesis while in nursing facility. No acute episode of hematemesis at this time stool is noted to be fairly dark Appreciate GI input (4) G tube feedings Assessment & Plan: DAILY ESTIMATED NEEDS: Needs based on ESRD/HD, wound/ 55kg adj for BL AKA 30-35 kcals/kg 5127-5227 total kcals 1.25-1.8 g protein/kg 69-99 g total protein 20-25 mL/kg 7141-6097 total fluid mLs NUTRITION DIAGNOSIS: * Increased kcal/pro intake needs R/T renal dysfunction, wound healing as evidenced by ESRD dx, on HD. admitted w/ advanced wounds including full thickness wounds x3, refer to WC maria elena (CURRENT TF: Glucerna 1.2 @55) ENTERAL NUTRITION RECOMMENDATIONS: Nepro @ 40ml/hr x 24 hrs + Prosource x1 daily to provide 960ml, 1728kcal, 78g + 11g pro, 698ml free water * WITH HEMODYNAMIC STABILITY, resume TF * Initiate Nepro @ 20ml/hr x 6 hrs, advance 10ml q 4-6 hrs as tolerated to goal. * HOB over 30 degrees/ water flush per MD ADDITIONAL RECOMMENDATIONS: * Calibrated dry wt post HD * Wound healing: add Nephrovite 1 tab QD - Add MAX BID - Add ZnSO4 220mg daily x10 days * Trophic feeds when on pressor support * Monitor Willian Avila Jun 24, 2019 12:22
--- NOTE | 2019-06-24 13:42 | Infectious Diseases Prog Note ---
Assessment/Plan Problems: (1) Fever Assessment & Plan: while on zyvox and ertapenem, S/P femoral line removal, now improving after adding fluconazole empirically, bone scan of the pelvis area ruled out osteomyelitis, WBC indium scan was not done due to lack of contrast materials to rule out any occult focus of infection, would continue zyvox, ertapenem and fluconazole for two weeks course of treatment . await fungal serology to rule out fungal pneumonia with lobulated lymph nodes on CT chest . (2) Sepsis Assessment & Plan: with shock due to staphylococcus epidermidis and fever, source most likely sacral/buttock pressure wounds with no evidence of underlying osteomyelitis or abscess . continue zyvox orally and ertapenem IM for 2 weeks , since no IV access . echo transthoracic showed no vegetations . repeated blood culture x 4 is negative so far which confirm clearance. will need two weeks of antibiotics therapy since no evidence of pelvic or sacrum osteomyelitis . EOT 07/01/19 (3) Decubitus skin ulcer Assessment & Plan: with maceration and necrosis , possibly infected, had surgical eval , already on wide spectrum antibiotics , keep off loading with local wound care as needed as per hospital protocol (4) GI bleed Assessment & Plan: monitor H/H , transfuse as needed, GI eval for source control (5) ESRD (end stage renal disease) on dialysis Assessment & Plan: continue HD as per renal , antibiotics renally dosed as per pharmacy (6) Anemia Assessment & Plan: due to the above , transfuse blood as needed, GI eval for source control (7) Cough with hemoptysis Assessment & Plan: resolved, 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 sputum for AFB smear x 3 is negative so far , and PCR MTB is negative , with negative T spot. off air born isolation . doubt TB (8) Mass of left lung Assessment & Plan: infectious VS malignant , await fungal serology , will need CT chest with contrast for confirmation . may need bronch or biopsy for definitive diagnosis . D/W PULMONARY Subjective ROS Limited/Unobtainable: Yes Allergies: Coded Allergies: GABAPENTIN (Unverified Allergy, Unknown, 06/14/19) Subjective she was resting in bed , quiet, nonverbal, awake, no cough or hemoptysis today , no fever today. Objective Vital Signs Last 24 Hour Vital Signs Date Time Temp Pulse Resp B/P (MAP) Pulse Ox O2 Delivery O2 Flow Rate FiO2 06/24/19 09:28 80 18 98 Room Air 21 06/24/19 09:00 Room Air 06/24/19 08:00 97.1 85 20 106/46 (66) 100 06/24/19 04:00 99.0 80 16 120/50 (73) 97 06/24/19 00:00 98.5 85 16 113/50 (71) 98 06/23/19 21:00 Room Air 06/23/19 20:00 98.9 87 16 118/47 (70) 98 06/23/19 19:24 88 18 97 Room Air 21 06/23/19 15:55 97.4 89 17 79/54 (62) 98 Height (Feet): 3 Height (Inches): 0.00 Weight (Pounds): 181 General Appearance: WD/WN, no acute distress HEENT: normocephalic, atraumatic, anicteric, mucous membranes moist, PERRL, EOMI, pharynx normal, supple, no JVD Respiratory/Chest: chest wall non-tender, no respiratory distress, no accessory muscle use, decreased breath sounds Cardiovascular: normal peripheral pulses, normal rate, regular rhythm, no gallop/murmur, no JVD Abdomen: normal bowel sounds, soft, non tender, no organomegaly, non distended , no mass, no scars Extremities: no cyanosis, no clubbing Skin: no rash, no lesions, ulcers Neurologic/Psychiatric: alert, unresponsiveness Lymphatic: no neck adenopathy, no groin adenopathy Musculoskeletal: normal muscle bulk, no effusion Microbiology Date/Time Source Procedure Growth Status 06/21/19 19:55 Blood Blood Culture - Preliminary NO GROWTH AFTER 48 HOURS Resulted 06/21/19 19:40 Blood Blood Culture - Preliminary NO GROWTH AFTER 48 HOURS Resulted Laboratory Tests Test 06/24/19 07:44 White Blood Count 8.6 K/UL (4.8-10.8) Red Blood Count 2.99 M/UL (4.20-5.40) L Hemoglobin 8.6 G/DL (12.0-16.0) L Hematocrit 28.4 % (37.0-47.0) L Mean Corpuscular Volume 95 FL (80-99) Mean Corpuscular Hemoglobin 28.8 PG (27.0-31.0) Mean Corpuscular Hemoglobin Concent 30.4 G/DL (32.0-36.0) L Red Cell Distribution Width 16.8 % (11.6-14.8) H Platelet Count 179 K/UL (150-450) Mean Platelet Volume 6.2 FL (6.5-10.1) L Neutrophils (%) (Auto) 80.4 % (45.0-75.0) H Lymphocytes (%) (Auto) 11.5 % (20.0-45.0) L Monocytes (%) (Auto) 3.6 % (1.0-10.0) Eosinophils (%) (Auto) 4.0 % (0.0-3.0) H Basophils (%) (Auto) 0.4 % (0.0-2.0) Sodium Level 142 MMOL/L (136-145) Potassium Level 4.1 MMOL/L (3.5-5.1) Chloride Level 105 MMOL/L (98-107) Carbon Dioxide Level 31 MMOL/L (21-32) Anion Gap 6 mmol/L (5-15) Blood Urea Nitrogen 33 mg/dL (7-18) H Creatinine 5.3 MG/DL (0.55-1.30) H Estimat Glomerular Filtration Rate mL/min (>60) Glucose Level 80 MG/DL (74-106) Calcium Level 9.1 MG/DL (8.5-10.1) Current Medications Medications (Trade) Dose Ordered Sig/Selene Route PRN Reason Start Time Stop Time Status Last Admin Dose Admin Acetaminophen (Tylenol) 650 mg Q4H PRN GT Fever 06/20/19 13:45 07/14/19 13:44 06/21/19 16:09 Albuterol/ Ipratropium (Albuterol/ Ipratropium) 3 ml Q4H PRN HHN Shortness of Breath 06/24/19 13:45 06/28/19 13:44 Dextrose (Dextrose 50%) 25 ml Q30M PRN IV Hypoglycemia 06/20/19 13:45 07/18/19 20:12 Dextrose (Dextrose 50%) 50 ml Q30M PRN IV hypoglycemia 06/20/19 13:45 07/18/19 20:14 Ertapenem (INVanz) 0.5 gm Q24H IM 06/20/19 18:00 07/01/19 23:00 06/23/19 18:08 Fluconazole (Diflucan) 200 mg Q24H GT 06/21/19 21:00 06/28/19 20:59 06/23/19 21:23 Hydralazine HCl (Apresoline) 25 mg Q6H PRN GT For High Blood Pressure 06/20/19 13:45 07/14/19 13:44 Insulin Aspart (NovoLOG) BEFORE MEALS AND HS SUBQ 06/20/19 16:30 07/14/19 20:59 06/21/19 21:39 Lansoprazole (Prevacid) 30 mg BID GT 06/21/19 12:00 07/21/19 11:59 06/24/19 09:11 Linezolid (Zyvox) 600 mg EVERY 12 HOURS GT 06/20/19 21:00 07/01/19 23:00 06/24/19 09:11 Midodrine (Pro-Amatine) 10 mg THREE TIMES A DAY GT 06/21/19 13:00 07/21/19 12:59 06/24/19 09:11 Ondansetron HCl (Zofran) 4 mg Q6H PRN IVP Nausea & Vomiting 06/20/19 13:45 07/14/19 13:44 Zinc Sulfate (Zinc Sulfate) 220 mg DAILY GT 06/21/19 09:00 06/30/19 08:59 06/24/19 09:12 Morteza Castillo M.D. Jun 24, 2019 13:42
--- NOTE | 2019-06-24 15:26 | Cardiology Report ---
APPROVED REPORT EKG Measurement Heart [id number] ID [id number] Sinus tachycardia with premature supraventricular complexes Low voltage QRS Nonspecific T wave abnormality Abnormal ECG
--- NOTE | 2019-06-24 15:55 | Cardiac Electrophysiology PN ---
Assessment/Plan Assessment/Plan 1. S/P septic shock. Resolved on IV antibiotic. Her EKG showed no acute ischemic changes. Echo Nl EF 60%. RFV line was removed. 2. End-stage renal disease, on hemodialysis. 3. Gastrointestinal bleed and anemia. EGD by Dr Perales showed Gastritis and Duodenal ulceration 4. Decubitus ulcer. 5. Hypertension 6. Diabetes. 7. Dysphagia, status post G-tube. 8. Fever 101. FU by Dr Castillo Awaiting department of health for DC DW RN Subjective Subjective Nonverbal. RN at bedside. Awaiting Dept of health clearance for questionable hemoptysis Objective Last 24 Hour Vital Signs Date Time Temp Pulse Resp B/P (MAP) Pulse Ox O2 Delivery O2 Flow Rate FiO2 06/24/19 12:00 99.6 83 23 98/54 (69) 95 06/24/19 09:28 80 18 98 Room Air 21 06/24/19 09:00 Room Air 06/24/19 08:00 97.1 85 20 106/46 (66) 100 06/24/19 04:00 99.0 80 16 120/50 (73) 97 06/24/19 00:00 98.5 85 16 113/50 (71) 98 06/23/19 21:00 Room Air 06/23/19 20:00 98.9 87 16 118/47 (70) 98 06/23/19 19:24 88 18 97 Room Air 21 06/23/19 15:55 97.4 89 17 79/54 (62) 98 Intake and Output 06/23/19 06/24/19 19:00 07:00 Intake Total 440 ml 740 ml Balance 440 ml 740 ml Free Water 300 ml Tube Feeding 440 ml 440 ml # Bowel Movements 1 Laboratory Tests Test 06/24/19 07:44 White Blood Count 8.6 K/UL (4.8-10.8) Red Blood Count 2.99 M/UL (4.20-5.40) L Hemoglobin 8.6 G/DL (12.0-16.0) L Hematocrit 28.4 % (37.0-47.0) L Mean Corpuscular Volume 95 FL (80-99) Mean Corpuscular Hemoglobin 28.8 PG (27.0-31.0) Mean Corpuscular Hemoglobin Concent 30.4 G/DL (32.0-36.0) L Red Cell Distribution Width 16.8 % (11.6-14.8) H Platelet Count 179 K/UL (150-450) Mean Platelet Volume 6.2 FL (6.5-10.1) L Neutrophils (%) (Auto) 80.4 % (45.0-75.0) H Lymphocytes (%) (Auto) 11.5 % (20.0-45.0) L Monocytes (%) (Auto) 3.6 % (1.0-10.0) Eosinophils (%) (Auto) 4.0 % (0.0-3.0) H Basophils (%) (Auto) 0.4 % (0.0-2.0) Sodium Level 142 MMOL/L (136-145) Potassium Level 4.1 MMOL/L (3.5-5.1) Chloride Level 105 MMOL/L (98-107) Carbon Dioxide Level 31 MMOL/L (21-32) Anion Gap 6 mmol/L (5-15) Blood Urea Nitrogen 33 mg/dL (7-18) H Creatinine 5.3 MG/DL (0.55-1.30) H Estimat Glomerular Filtration Rate mL/min (>60) Glucose Level 80 MG/DL (74-106) Calcium Level 9.1 MG/DL (8.5-10.1) Microbiology Date/Time Source Procedure Growth Status 06/21/19 19:55 Blood Blood Culture - Preliminary NO GROWTH AFTER 48 HOURS Resulted 06/21/19 19:40 Blood Blood Culture - Preliminary NO GROWTH AFTER 48 HOURS Resulted Objective HEAD AND NECK: Shows no JVD. LUNGS: Coarse rhonchi. CARDIOVASCULAR: Regular S1 and S2 with no gallop. ABDOMEN: Soft. G-tube. EXTREMITIES: Bilateral above-knee amputation. She has a triple-lumen in the right femoral area and dialysis access in the right arm. Will Osborne MD Jun 24, 2019 15:55
[2019-06-24 16:00] VITALS: BP 140/42
[2019-06-24] MEDS: Ertapenem (INVanz) 1gm Inj IM SCH (18:33)
[2019-06-24] MEDS ORDERED: Epoetin Alfa-EPBX(ESRD on dialysis)10,000 unit/ml vial SUBQ ONE (19:00)
--- NOTE | 2019-06-24 19:45 | Nephrology Progress Note ---
Assessment/Plan Problem List: (1) ESRD (end stage renal disease) on dialysis (2) GI bleed (3) Decubitus skin ulcer (4) Anemia Plan HD on Wednesday Discussed with RN follow labs abxs Subjective Subjective In NAD Objective Objective Last 24 Hour Vital Signs Date Time Temp Pulse Resp B/P (MAP) Pulse Ox O2 Delivery O2 Flow Rate FiO2 06/24/19 16:00 97.9 73 16 140/42 (74) 95 06/24/19 12:00 99.6 83 23 98/54 (69) 95 06/24/19 09:28 80 18 98 Room Air 21 06/24/19 09:00 Room Air 06/24/19 08:00 97.1 85 20 106/46 (66) 100 06/24/19 04:00 99.0 80 16 120/50 (73) 97 06/24/19 00:00 98.5 85 16 113/50 (71) 98 06/23/19 21:00 Room Air 06/23/19 20:00 98.9 87 16 118/47 (70) 98 Intake and Output 06/23/19 06/24/19 19:00 07:00 Intake Total 440 ml 740 ml Balance 440 ml 740 ml Free Water 300 ml Tube Feeding 440 ml 440 ml # Bowel Movements 1 Laboratory Tests 06/24/19 07:44: White Blood Count 8.6, Red Blood Count 2.99L, Hemoglobin 8.6L, Hematocrit 28.4L , Mean Corpuscular Volume 95, Mean Corpuscular Hemoglobin 28.8, Mean Corpuscular Hemoglobin Concent 30.4L, Red Cell Distribution Width 16.8H, Platelet Count 179, Mean Platelet Volume 6.2L, Neutrophils (%) (Auto) 80.4H, Lymphocytes (%) (Auto) 11.5L, Monocytes (%) (Auto) 3.6, Eosinophils (%) (Auto) 4.0H, Basophils (%) (Auto) 0.4, Sodium Level 142, Potassium Level 4.1, Chloride Level 105, Carbon Dioxide Level 31, Anion Gap 6, Blood Urea Nitrogen 33H, Creatinine 5.3H, Estimat Glomerular Filtration Rate , Glucose Level 80, Calcium Level 9.1 Height (Feet): 3 Height (Inches): 0.00 Weight (Pounds): 181 Cardiovascular: normal rate Respiratory/Chest: lungs clear Extremities: trace edema Aftab Arnold MD Jun 24, 2019 19:45
[2019-06-24 20:00] VITALS: BP 122/75
[2019-06-24] MEDS ORDERED: Epoetin Alfa-EPBX(ESRD on dialysis)3000 units/ml vial SUBQ ONE (20:00)
[2019-06-24] MEDS ORDERED: Epoetin Alfa-EPBX(ESRD on dialysis)4000 units/ml vial SUBQ ONE (20:00)
[2019-06-24] MEDS: Nephrovite tab (Rena-Vite) ORAL SCH (20:35)
[2019-06-24] MEDS: Fluconazole 100mg tab GT SCH (20:35)
[2019-06-25] VITALS (7 sets, daily range): BP systolic 93–146; BP diastolic 33–78
[2019-06-25] MEDS: NovoLOG Insulin Flexpen SUBQ SCH ×4 (06:01→20:55)
--- NOTE | 2019-06-25 06:06 | General Progress Note ---
Assessment/Plan Status: stable, unchanged Assessment/Plan: (1) GI bleed ICD Codes: K92.2 - Gastrointestinal hemorrhage, unspecified SNOMED: 84144489 (2) Anemia due to chronic kidney disease ICD Codes: N18.9 - Chronic kidney disease, unspecified; D63.1 - Anemia in chronic kidney disease SNOMED: 788925216 (3) Septic shock ICD Codes: A41.9 - Sepsis, unspecified organism; R65.21 - Severe sepsis with septic shock SNOMED: 98390067 (4) G tube feedings ICD Codes: Z93.1 - Gastrostomy status SNOMED: 407490376, 163519442, 550218094 Status: unchanged Status Narrative Discussed with Dr. Perales. Assessment/Plan SUMMARY OF FINDINGS: 1. Medium-sized hiatal hernia. 2. Gastritis, status post biopsy. 3. Duodenal ulceration without any evidence of active bleeding or any visible vessel or adherent clot. RECOMMENDATIONS: tube feeding. Prevacid per G-tube 30 mg daily. Monitor hemoglobin and hematocrit, transfuse as needed. Monitor labs. had BM dc planning per primary team Subjective ROS Limited/Unobtainable: No Allergies: Coded Allergies: GABAPENTIN (Unverified Allergy, Unknown, 06/14/19) Objective Last 24 Hour Vital Signs Date Time Temp Pulse Resp B/P (MAP) Pulse Ox O2 Delivery O2 Flow Rate FiO2 06/25/19 04:00 98.8 78 20 142/78 (99) 98 06/25/19 00:00 98.8 72 20 128/71 (90) 95 06/24/19 20:09 Room Air 06/24/19 20:00 98.9 71 20 122/75 (91) 95 06/24/19 19:44 75 18 99 Room Air 21 06/24/19 16:00 97.9 73 16 140/42 (74) 95 06/24/19 12:00 99.6 83 23 98/54 (69) 95 06/24/19 09:28 80 18 98 Room Air 21 06/24/19 09:00 Room Air 06/24/19 08:00 97.1 85 20 106/46 (66) 100 Intake and Output 06/24/19 06/25/19 18:59 06:59 Intake Total 640 ml 740 ml Balance 640 ml 740 ml Free Water 200 ml 260 ml Tube Feeding 440 ml 480 ml # Bowel Movements 1 Laboratory Tests 06/24/19 07:44: White Blood Count 8.6, Red Blood Count 2.99L, Hemoglobin 8.6L, Hematocrit 28.4L , Mean Corpuscular Volume 95, Mean Corpuscular Hemoglobin 28.8, Mean Corpuscular Hemoglobin Concent 30.4L, Red Cell Distribution Width 16.8H, Platelet Count 179, Mean Platelet Volume 6.2L, Neutrophils (%) (Auto) 80.4H, Lymphocytes (%) (Auto) 11.5L, Monocytes (%) (Auto) 3.6, Eosinophils (%) (Auto) 4.0H, Basophils (%) (Auto) 0.4, Sodium Level 142, Potassium Level 4.1, Chloride Level 105, Carbon Dioxide Level 31, Anion Gap 6, Blood Urea Nitrogen 33H, Creatinine 5.3H, Estimat Glomerular Filtration Rate , Glucose Level 80, Calcium Level 9.1 Height (Feet): 3 Height (Inches): 0.00 Weight (Pounds): 184 General Appearance: no apparent distress EENT: normal ENT inspection Neck: supple Cardiovascular: normal rate Respiratory/Chest: decreased breath sounds Abdomen: normal bowel sounds, non tender, soft Extremities: non-tender Ezequiel Perales MD Jun 25, 2019 06:06
[2019-06-25] MEDS: Zinc Sulfate 220mg cap GT SCH (08:45)
[2019-06-25] MEDS: Nephrovite tab (Rena-Vite) ORAL SCH (08:45)
[2019-06-25] MEDS: Midodrine 10mg tab GT SCH ×3 (08:45→17:22)
--- NOTE | 2019-06-25 08:52 | Pulmonology Progress Note ---
Assessment/Plan Assessment/Plan ASSESSMENT GI bleeding Anemia of chronic disease ESRD, on hemodialysis Septic shock resolved, off Levophed Sepsis with Staph bacteremia History of prior TB Multiply compressive compression fracture, likely old Moderate mitral regurgitation Aortic stenosis Mild pulmonary hypertension Decubitus ulcer , present on admission Dysphagia , feeding by G-tube History of hypertension Diabetes mellitus History of CVA PVD with bilateral AKA PLAN OF CARE MS floor O2 PRN titrate to keep pulse ox above 92, HHN as needed DVT prophylaxis hemodynamic status stable, off pressors, continue midodrine CT of the chest 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 AFB smear x3 negative T spot negative, M.Tb by PCR negative venous duplex BLE negative Echo with pEF 60%, , moderate MR, mild pulmonary HTN cardio follows strict aspiration precaution, G-tube feeding abx as per ID initial blood culture with staph epidermidis, repeated blood culture 06/17 , and 06/20 all negative catheter tip cx-negative per ID recs will need 2 wks of abx after firts negative BCX ; EOT 07/01 stool for C. difficile negative wound care as per surgeon recommendation offload bone scan revealed no definite evidence of osteomyelitis s/p EGD, with findings of hiatal hernia, gastritis, status post biopsy, duodenal ulceration, no evidence of acute bleeding biopsy of gastric antrum showed benign gastric mucosa with mild to moderate chronic gastritis, negative for Helicobacter, negative for intestinal metaplasia , dysplasia , or malignancy PPI bowel regimen monitor H&H with goal to keep hemoglobin above 7 anemia work-up c/w anemia of chronic disease HD as per associate professor of education with close monitoring of volumes, renal parameters and electrolytes pain management bowel regimen supportive care BS management with SSI, hemoglobin A1c -5.2 BP remains stable, off antihypertensive medication case discussed and evaluated by supervising physician Subjective Allergies: Coded Allergies: GABAPENTIN (Unverified Allergy, Unknown, 06/14/19) Subjective remains afebrile, no leukocytosis no signs of resp distress Objective Last 24 Hour Vital Signs Date Time Temp Pulse Resp B/P (MAP) Pulse Ox O2 Delivery O2 Flow Rate FiO2 06/25/19 08:03 83 20 95 Room Air 21 06/25/19 08:00 97.5 78 24 98/33 (54) 96 06/25/19 04:00 98.8 78 20 142/78 (99) 98 06/25/19 00:00 98.8 72 20 128/71 (90) 95 06/24/19 20:09 Room Air 06/24/19 20:00 98.9 71 20 122/75 (91) 95 06/24/19 19:44 75 18 99 Room Air 21 06/24/19 16:00 97.9 73 16 140/42 (74) 95 06/24/19 12:00 99.6 83 23 98/54 (69) 95 06/24/19 09:28 80 18 98 Room Air 21 06/24/19 09:00 Room Air Intake and Output 06/24/19 06/25/19 18:59 06:59 Intake Total 640 ml 740 ml Output Total 1400 ml Balance 640 ml -660 ml Free Water 200 ml 260 ml Tube Feeding 440 ml 480 ml Output Urine Total 1400 ml # Bowel Movements 1 1 Objective General Appearance: no acute distress, chronically ill looking, obese, poorly responsive , bedridden , AA female HEENT: normocephalic, atraumatic, anicteric Respiratory/Chest: no respiratory distress, decreased breath sounds Cardiovascular: normal rate, RUE AV shunt Abdomen: normal bowel sounds, soft, non tender - obese Extremities: other - bilateral AKA Skin: other - decub, see wound pictures Neurologic/Psychiatric: abnormal gait - bedridden , poorly responsive Musculoskeletal: bilateral AKA Current Medications Medications (Trade) Dose Ordered Sig/Selene Route PRN Reason Start Time Stop Time Status Last Admin Dose Admin Acetaminophen (Tylenol) 650 mg Q4H PRN GT Fever 06/20/19 13:45 07/14/19 13:44 06/21/19 16:09 Albuterol/ Ipratropium (Albuterol/ Ipratropium) 3 ml Q4H PRN HHN Shortness of Breath 06/24/19 13:45 06/28/19 13:44 Dextrose (Dextrose 50%) 25 ml Q30M PRN IV Hypoglycemia 06/20/19 13:45 07/18/19 20:12 Dextrose (Dextrose 50%) 50 ml Q30M PRN IV hypoglycemia 06/20/19 13:45 07/18/19 20:14 Epoetin Alli (Epoetin Alli(ESRD on dialysis)) 3,000 unit WED-WED-WED SUBQ 06/26/19 21:00 07/26/19 20:59 Epoetin Alli (Epoetin Alli(ESRD on dialysis)) 4,000 unit WED-WED-WED SUBQ 06/26/19 21:00 07/26/19 20:59 Ertapenem (INVanz) 0.5 gm Q24H IM 06/24/19 18:00 07/01/19 23:00 06/24/19 18:33 Fluconazole (Diflucan) 200 mg Q24H GT 06/21/19 21:00 06/28/19 20:59 06/24/19 20:35 Hydralazine HCl (Apresoline) 25 mg Q6H PRN GT For High Blood Pressure 06/20/19 13:45 07/14/19 13:44 Insulin Aspart (NovoLOG) BEFORE MEALS AND HS SUBQ 06/20/19 16:30 07/14/19 20:59 06/21/19 21:39 Lansoprazole (Prevacid) 30 mg BID GT 06/21/19 12:00 07/21/19 11:59 06/24/19 18:32 Linezolid (Zyvox) 600 mg EVERY 12 HOURS GT 06/20/19 21:00 07/01/19 23:00 06/25/19 08:45 Midodrine (Pro-Amatine) 10 mg THREE TIMES A DAY GT 06/21/19 13:00 07/21/19 12:59 06/25/19 08:45 Ondansetron HCl (Zofran) 4 mg Q6H PRN IVP Nausea & Vomiting 06/20/19 13:45 07/14/19 13:44 Vitamin B Complex/ Vit C/Folic Acid (Nephrovite) 1 tab DAILY ORAL 06/24/19 20:00 07/24/19 19:59 06/25/19 08:45 Zinc Sulfate (Zinc Sulfate) 220 mg DAILY GT 06/21/19 09:00 06/30/19 08:59 06/25/19 08:45 Mai De NP Jun 25, 2019 08:52
--- NOTE | 2019-06-25 10:50 | General Progress Note ---
Assessment/Plan Status: stable, unchanged Assessment/Plan: 1. Fever - improved. responding to antifungal txt. cont fluconazole and Abx for now. bone scan negative for osteomyelitis. Awaiting Health depart clearance for discharge. 2. Septic Shock - improved. off pressor and doing well. Cont Abx for now. ID following. In Med surg. 3. ESRD on HD - on HD 3x/wk. 4. Sacral pressure ulcer - surgery is following. 5. Upper GI bleed 2nd to duodenal ulcer - H/H currently stable. s/p One unit of PRBC. EGD showed Gastritis and nonbleeding duodenal ulcer. cont prevacid 30 mg bid. 6. Sepsis - cont IV Abx. ID following the patient. blood cultures showed staph Epidermatous. cont abx and antifungal for now. 7. HLD - cont home meds. 8. Gout - cont Allopurinol 9. H/O PVD 10. H/O DVT 11. DM II - cont SSI. 12. HTN - off meds and blood pressure is fine. 13. 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 still awaiting Dept of Health clearance for discharge. 14. Mass on left lung - most likely 2nd to fungal infection - fungal serology pending. fever improved as well. Pulmonary agrees that it is less likely malignancy and no CT with contrast needed due to multiple comorbidities. Subjective Date patient seen: Jun 25, 2019 Time patient seen: 10:15 Constitutional: Reports: no symptoms HEENT: Reports: no symptoms Cardiovascular: Reports: no symptoms Respiratory: Reports: no symptoms Gastrointestinal/Abdominal: Reports: no symptoms Genitourinary: Reports: no symptoms Neurologic/Psychiatric: Reports: no symptoms Endocrine: Reports: no symptoms Hematologic/Lymphatic: Reports: anemia Allergies: Coded Allergies: GABAPENTIN (Unverified Allergy, Unknown, 06/14/19) Subjective Patient is in Med Surg. awaiting Dept of Health clearance for discharge. afebrile. she is ESRD on HD. Objective Last 24 Hour Vital Signs Date Time Temp Pulse Resp B/P (MAP) Pulse Ox O2 Delivery O2 Flow Rate FiO2 06/25/19 09:25 79 93/49 (64) 06/25/19 09:00 Room Air 06/25/19 08:03 83 20 95 Room Air 21 06/25/19 08:00 97.5 78 24 98/33 (54) 96 06/25/19 04:00 98.8 78 20 142/78 (99) 98 06/25/19 00:00 98.8 72 20 128/71 (90) 95 06/24/19 20:09 Room Air 06/24/19 20:00 98.9 71 20 122/75 (91) 95 06/24/19 19:44 75 18 99 Room Air 21 06/24/19 16:00 97.9 73 16 140/42 (74) 95 06/24/19 12:00 99.6 83 23 98/54 (69) 95 Intake and Output 06/24/19 06/25/19 18:59 06:59 Intake Total 640 ml 740 ml Output Total 1400 ml Balance 640 ml -660 ml Free Water 200 ml 260 ml Tube Feeding 440 ml 480 ml Output Urine Total 1400 ml # Bowel Movements 1 1 Height (Feet): 3 Height (Inches): 0.00 Weight (Pounds): 184 General Appearance: no apparent distress, other - mute EENT: normal ENT inspection Neck: non-tender, supple Cardiovascular: normal rate, regular rhythm Respiratory/Chest: lungs clear, normal breath sounds Abdomen: normal bowel sounds, non tender, soft Extremities: other - bilateral above the knee amputation Neurologic: responsive Skin: warm/dry Pam Alcantar MD Jun 25, 2019 10:50
--- NOTE | 2019-06-25 12:52 | Nephrology Progress Note ---
Assessment/Plan Problem List: (1) ESRD (end stage renal disease) on dialysis (2) GI bleed (3) Decubitus skin ulcer (4) Anemia Plan HD on Wednesday follow labs abxs Subjective Subjective In NAD Objective Objective Last 24 Hour Vital Signs Date Time Temp Pulse Resp B/P (MAP) Pulse Ox O2 Delivery O2 Flow Rate FiO2 06/25/19 09:25 79 93/49 (64) 06/25/19 09:00 Room Air 06/25/19 08:03 83 20 95 Room Air 21 06/25/19 08:00 97.5 78 24 98/33 (54) 96 06/25/19 04:00 98.8 78 20 142/78 (99) 98 06/25/19 00:00 98.8 72 20 128/71 (90) 95 06/24/19 20:09 Room Air 06/24/19 20:00 98.9 71 20 122/75 (91) 95 06/24/19 19:44 75 18 99 Room Air 21 06/24/19 16:00 97.9 73 16 140/42 (74) 95 Intake and Output 06/24/19 06/25/19 19:00 07:00 Intake Total 740 ml 640 ml Output Total 1400 ml Balance 740 ml -760 ml Free Water 300 ml 160 ml Tube Feeding 440 ml 480 ml Output Urine Total 1400 ml # Bowel Movements 1 1 Height (Feet): 3 Height (Inches): 0.00 Weight (Pounds): 184 Cardiovascular: normal rate Respiratory/Chest: lungs clear Aftab Arnold MD Jun 25, 2019 12:52
--- NOTE | 2019-06-25 14:16 | Cardiac Electrophysiology PN ---
Assessment/Plan Assessment/Plan 1. S/P septic shock. Resolved on IV antibiotic. Her EKG showed no acute ischemic changes. Echo Nl EF 60%. RFV line was removed. 2. End-stage renal disease, on hemodialysis. 3. Gastrointestinal bleed and anemia. EGD by Dr Perales showed Gastritis and Duodenal ulceration 4. Decubitus ulcer. 5. Hypertension 6. Diabetes. 7. Dysphagia, status post G-tube. 8. Fever 101. FU by Dr Castillo Awaiting department of health for DC DW RN Subjective Subjective Nonverbal. RN at bedside. GT feeding on going. Awaiting Dept of health clearance for questionable hemoptysis Objective Last 24 Hour Vital Signs Date Time Temp Pulse Resp B/P (MAP) Pulse Ox O2 Delivery O2 Flow Rate FiO2 06/25/19 12:00 99.1 81 24 108/38 (61) 100 06/25/19 09:25 79 93/49 (64) 06/25/19 09:00 Room Air 06/25/19 08:03 83 20 95 Room Air 21 06/25/19 08:00 97.5 78 24 98/33 (54) 96 06/25/19 04:00 98.8 78 20 142/78 (99) 98 06/25/19 00:00 98.8 72 20 128/71 (90) 95 06/24/19 20:09 Room Air 06/24/19 20:00 98.9 71 20 122/75 (91) 95 06/24/19 19:44 75 18 99 Room Air 21 06/24/19 16:00 97.9 73 16 140/42 (74) 95 Intake and Output 06/24/19 06/25/19 19:00 07:00 Intake Total 740 ml 640 ml Output Total 1400 ml Balance 740 ml -760 ml Free Water 300 ml 160 ml Tube Feeding 440 ml 480 ml Output Urine Total 1400 ml # Bowel Movements 1 1 Objective HEAD AND NECK: Shows no JVD. LUNGS: Coarse rhonchi. CARDIOVASCULAR: Regular S1 and S2 with no gallop. ABDOMEN: Soft. G-tube. EXTREMITIES: Bilateral above-knee amputation. She has a triple-lumen in the right femoral area and dialysis access in the right arm. Will Osborne MD Jun 25, 2019 14:16
[2019-06-25] MEDS: Ertapenem (INVanz) 1gm Inj IM SCH (18:11)
--- NOTE | 2019-06-25 19:56 | Infectious Diseases Prog Note ---
Assessment/Plan Problems: (1) Fever Assessment & Plan: while on zyvox and ertapenem, S/P femoral line removal, now improving after adding fluconazole empirically, suspect fungal etiology . bone scan of the pelvis area ruled out osteomyelitis, WBC indium scan was not done due to lack of contrast materials to rule out any occult focus of infection , would continue zyvox, ertapenem and fluconazole for two weeks course of treatment . await fungal serology to rule out fungal pneumonia with lobulated lymph nodes on CT chest . (2) Sepsis Assessment & Plan: with shock due to staphylococcus epidermidis and fever, source most likely sacral/buttock pressure wounds with no evidence of underlying osteomyelitis or abscess . continue zyvox orally and ertapenem IM for 2 weeks , since no IV access . echo transthoracic showed no vegetations . repeated blood culture x 4 is negative so far which confirm clearance. will need two weeks of antibiotics therapy since no evidence of pelvic or sacrum osteomyelitis . EOT 07/01/19 (3) Decubitus skin ulcer Assessment & Plan: with maceration and necrosis , possibly infected, had surgical eval , already on wide spectrum antibiotics , keep off loading with local wound care as needed as per hospital protocol (4) GI bleed Assessment & Plan: monitor H/H , transfuse as needed, GI eval for source control (5) ESRD (end stage renal disease) on dialysis Assessment & Plan: continue HD as per renal , antibiotics renally dosed as per pharmacy (6) Anemia Assessment & Plan: due to the above , transfuse blood as needed, GI eval for source control (7) Cough with hemoptysis Assessment & Plan: resolved, 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 sputum for AFB smear x 3 is negative so far , and PCR MTB is negative , with negative T spot. off air born isolation . doubt TB (8) Mass of left lung Assessment & Plan: infectious VS malignant , await fungal serology , will need CT chest with contrast for confirmation . may need bronch or biopsy for definitive diagnosis . D/W PULMONARY Subjective ROS Limited/Unobtainable: Yes Allergies: Coded Allergies: GABAPENTIN (Unverified Allergy, Unknown, 06/14/19) Subjective she was resting in bed , quiet, nonverbal, awake, no cough or hemoptysis today , no fever today. Objective Vital Signs Last 24 Hour Vital Signs Date Time Temp Pulse Resp B/P (MAP) Pulse Ox O2 Delivery O2 Flow Rate FiO2 06/25/19 16:00 99.4 72 19 117/37 (63) 92 06/25/19 12:00 99.1 81 24 108/38 (61) 100 06/25/19 09:25 79 93/49 (64) 06/25/19 09:00 Room Air 06/25/19 08:03 83 20 95 Room Air 21 06/25/19 08:00 97.5 78 24 98/33 (54) 96 06/25/19 04:00 98.8 78 20 142/78 (99) 98 06/25/19 00:00 98.8 72 20 128/71 (90) 95 06/24/19 20:09 Room Air 06/24/19 20:00 98.9 71 20 122/75 (91) 95 Height (Feet): 3 Height (Inches): 0.00 Weight (Pounds): 184 General Appearance: WD/WN, no acute distress HEENT: normocephalic, atraumatic, anicteric, mucous membranes moist, PERRL Respiratory/Chest: chest wall non-tender, normal breath sounds, no respiratory distress, no accessory muscle use, decreased breath sounds Cardiovascular: normal peripheral pulses, normal rate, regular rhythm, no gallop/murmur, no JVD Abdomen: normal bowel sounds, soft, non tender, no organomegaly, non distended , no mass, no scars Genitourinary: normal external genitalia Extremities: no cyanosis, no clubbing Skin: no rash, no lesions, ulcers Neurologic/Psychiatric: alert, unresponsiveness Lymphatic: no neck adenopathy, no groin adenopathy Musculoskeletal: normal muscle bulk, no effusion Current Medications Medications (Trade) Dose Ordered Sig/Selene Route PRN Reason Start Time Stop Time Status Last Admin Dose Admin Acetaminophen (Tylenol) 650 mg Q4H PRN GT Fever 06/20/19 13:45 07/14/19 13:44 06/21/19 16:09 Albuterol/ Ipratropium (Albuterol/ Ipratropium) 3 ml Q4H PRN HHN Shortness of Breath 06/24/19 13:45 06/28/19 13:44 Dextrose (Dextrose 50%) 25 ml Q30M PRN IV Hypoglycemia 06/20/19 13:45 07/18/19 20:12 Dextrose (Dextrose 50%) 50 ml Q30M PRN IV hypoglycemia 06/20/19 13:45 07/18/19 20:14 Epoetin Alli (Epoetin Alli(ESRD on dialysis)) 3,000 unit WED-WED-WED SUBQ 06/26/19 21:00 07/26/19 20:59 Epoetin Alli (Epoetin Alli(ESRD on dialysis)) 4,000 unit WED- SUBQ 06/26/19 21:00 07/26/19 20:59 Ertapenem (INVanz) 0.5 gm Q24H IM 06/24/19 18:00 07/01/19 23:00 06/25/19 18:11 Fluconazole (Diflucan) 200 mg Q24H GT 06/21/19 21:00 06/28/19 20:59 06/24/19 20:35 Heparin Sodium (Porcine) (Heparin Sod 1000 units/ml 10ml) 500 unit ONCE PRN IV dialysis 06/26/19 13:00 06/26/19 23:59 Hydralazine HCl (Apresoline) 25 mg Q6H PRN GT For High Blood Pressure 06/20/19 13:45 07/14/19 13:44 Insulin Aspart (NovoLOG) BEFORE MEALS AND HS SUBQ 06/20/19 16:30 07/14/19 20:59 06/21/19 21:39 Lansoprazole (Prevacid) 30 mg BID GT 06/21/19 12:00 07/21/19 11:59 06/25/19 17:22 Linezolid (Zyvox) 600 mg EVERY 12 HOURS GT 06/20/19 21:00 07/01/19 23:00 06/25/19 08:45 Midodrine (Pro-Amatine) 10 mg THREE TIMES A DAY GT 06/21/19 13:00 07/21/19 12:59 06/25/19 17:22 Ondansetron HCl (Zofran) 4 mg Q6H PRN IVP Nausea & Vomiting 06/20/19 13:45 07/14/19 13:44 Sodium Chloride 1,000 ml @ 500 mls/hr Q2H PRN IVLG sbp<90 during hd 06/26/19 12:52 06/26/19 23:59 Vitamin B Complex/ Vit C/Folic Acid (Nephrovite) 1 tab DAILY ORAL 06/24/19 20:00 07/24/19 19:59 06/25/19 08:45 Zinc Sulfate (Zinc Sulfate) 220 mg DAILY GT 06/21/19 09:00 06/30/19 08:59 06/25/19 08:45 Morteza Castillo M.D. Jun 25, 2019 19:56
--- NOTE | 2019-06-25 20:32 | Surgery Progress Note ---
Surgery Progress Note Subjective Procedure Performed removal of right femoral central venous catheter Additional Comments late entry. patient doing well. no acute events. exam stable. Objective Last 24 Hour Vital Signs Date Time Temp Pulse Resp B/P (MAP) Pulse Ox O2 Delivery O2 Flow Rate FiO2 06/25/19 20:28 Room Air 06/25/19 16:00 99.4 72 19 117/37 (63) 92 06/25/19 12:00 99.1 81 24 108/38 (61) 100 06/25/19 09:25 79 93/49 (64) 06/25/19 09:00 Room Air 06/25/19 08:03 83 20 95 Room Air 21 06/25/19 08:00 97.5 78 24 98/33 (54) 96 06/25/19 04:00 98.8 78 20 142/78 (99) 98 06/25/19 00:00 98.8 72 20 128/71 (90) 95 I&O Intake and Output 06/24/19 06/25/19 19:00 07:00 Intake Total 740 ml 640 ml Output Total 1400 ml Balance 740 ml -760 ml Free Water 300 ml 160 ml Tube Feeding 440 ml 480 ml Output Urine Total 1400 ml # Bowel Movements 1 1 Dressing: saturated Wound: clean Cardiovascular: RSR Respiratory: clear Abdomen: soft, present bowel sounds Extremities: no edema, no tenderness, no cyanosis Plan Problems: (1) Decubitus skin ulcer Assessment & Plan: Pt presented on admission with multiple full thickness pressure injuries R ,L buttocks and L ischium .R sacrum extending down to lower R buttocks erythematous with multiple areas with slough,(+) maceration along edges and periwound. Wound is malodorous. Wound with sloth that easily removed with non excisional debridement during clean up / washing. L sacrum extending into L lower buttocks erythematous ,macerated with scattered areas of yellow slough through out base of wound.Wound is malodorous. Small amt seropurulent exudate noted.Periwound noted to have darker skin tone that is indurated. L ischium darker than is normal skin tone and indurated with scattered open wound exuding small amt serous exudate. Incontinence associated dermatitis noted to perineum and medial aspects of both upper thigh.Skin is erythematous and denuded. Pt presented on admission in grossly unkempt state. Full thickness pressure injury to sacrum extending to R and L ischial regions.(L)18cm x (W)14cm. Sacral pressure injury measures(L)6cm x (W)8cm x (D)0.4cm. Scattered slough at base of wound. Muscle is palpable. Wound is now viable. Full thickness wounds R and L buttocks with scattered slough. Non-blanchable erythema with additional skin erosions periwound. Moisture Intertrigo noted to bilat breasts folds. abd folds and bilat groin areas. Skin is dry dry and flaky to both AKA stumps. Small partial thickness wound noted to L AKA (L)0.4cm x (W)0.4cm. Base of wound is moist and viable. Wound cleaned at bedside and non-excisional debridement [facility] of the [facility]. Underlying tissue fairly healthy. The is now a stage IV sacral decubitus ulcer in the central portion right above the coccyx with palpable musculature. Wound is deteriorated since last admission. Tx.Plan: Cleanse wound Sacrum with saline. Apply Therahoney to Sacrum,R and L buttocks. Apply Moisture Barrier Paste periwound. Cover with Optifoam drsg Daily and prn. Apply Moisture Barrier Paste to folds of both breasts,abd folds ,and bilat groin areas with each incontinence care. Apply Cavilon Skin Barrier to L AKA daily. Reposition at least every 2hours or as tolerated. Off-load heels with pillow. APM/TIAGO mattress overlay. (2) Sepsis Assessment & Plan: 84-year-old female with hypotension, tachycardia, leukocytosis, abnormal labs. Currently in intensive care unit line removed micro noted and negative growh will monitor On IV antibiotics as per infectious disease Trend labs We will follow with recommendations (3) GI bleed Assessment & Plan: Noted to have hematemesis while in nursing facility. No acute episode of hematemesis at this time stool is noted to be fairly dark Appreciate GI input (4) G tube feedings Assessment & Plan: DAILY ESTIMATED NEEDS: Needs based on ESRD/HD, wound/ 55kg adj for BL AKA 30-35 kcals/kg 9665-8976 total kcals 1.25-1.8 g protein/kg 69-99 g total protein 20-25 mL/kg 0068-9251 total fluid mLs NUTRITION DIAGNOSIS: * Increased kcal/pro intake needs R/T renal dysfunction, wound healing as evidenced by ESRD dx, on HD. admitted w/ advanced wounds including full thickness wounds x3, refer to WC maria elena (CURRENT TF: Glucerna 1.2 @55) ENTERAL NUTRITION RECOMMENDATIONS: Nepro @ 40ml/hr x 24 hrs + Prosource x1 daily to provide 960ml, 1728kcal, 78g + 11g pro, 698ml free water * WITH HEMODYNAMIC STABILITY, resume TF * Initiate Nepro @ 20ml/hr x 6 hrs, advance 10ml q 4-6 hrs as tolerated to goal. * HOB over 30 degrees/ water flush per MD ADDITIONAL RECOMMENDATIONS: * Calibrated dry wt post HD * Wound healing: add Nephrovite 1 tab QD - Add MAX BID - Add ZnSO4 220mg daily x10 days * Trophic feeds when on pressor support * Monitor Willian Avila Jun 25, 2019 20:32
[2019-06-25] MEDS: Albuterol/Ipratropium 3ml neb HHN PRN (20:54)
[2019-06-25] MEDS: Fluconazole 100mg tab GT SCH (20:55)
[2019-06-26] VITALS (7 sets, daily range): BP systolic 110–156; BP diastolic 62–92
[2019-06-26] MEDS: NovoLOG Insulin Flexpen SUBQ SCH ×4 (05:31→20:54)
[2019-06-26] MEDS ORDERED: Lidocaine 1% MPF 10mg/ml 5ml ONE (09:04)
--- NOTE | 2019-06-26 09:14 | General Progress Note ---
Assessment/Plan Status: stable, unchanged Assessment/Plan: 1. Fever - improved. responding to antifungal txt. cont fluconazole and Abx for now. bone scan negative for osteomyelitis. Awaiting Health depart clearance for discharge. 2. Septic Shock - improved. off pressor and doing well. Cont Abx for now. ID following. In Med surg. 3. ESRD on HD - on HD 3x/wk. 4. Sacral pressure ulcer - surgery is following. 5. Upper GI bleed 2nd to duodenal ulcer - H/H currently stable. s/p One unit of PRBC. EGD showed Gastritis and nonbleeding duodenal ulcer. cont prevacid 30 mg bid. 6. Sepsis - cont IV Abx. ID following the patient. blood cultures showed staph Epidermatous. cont abx and antifungal for now. 7. HLD - cont home meds. 8. Gout - cont Allopurinol 9. H/O PVD 10. H/O DVT 11. DM II - cont SSI. 12. HTN - off meds and blood pressure is fine. 13. 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 still awaiting Dept of Health clearance for discharge. 14. Mass on left lung - most likely 2nd to fungal infection - fungal serology pending. fever improved as well. Pulmonary agrees that it is less likely malignancy and no CT with contrast needed due to multiple comorbidities. Subjective Date patient seen: Jun 26, 2019 Constitutional: Reports: weakness HEENT: Reports: no symptoms Cardiovascular: Reports: no symptoms Respiratory: Reports: no symptoms Gastrointestinal/Abdominal: Reports: no symptoms Genitourinary: Reports: no symptoms Neurologic/Psychiatric: Reports: no symptoms Endocrine: Reports: no symptoms Hematologic/Lymphatic: Reports: no symptoms Allergies: Coded Allergies: GABAPENTIN (Unverified Allergy, Unknown, 06/14/19) Subjective Patient is in Med Surg. awaiting Dept of Health clearance for discharge. afebrile. she is ESRD on HD. Objective Last 24 Hour Vital Signs Date Time Temp Pulse Resp B/P (MAP) Pulse Ox O2 Delivery O2 Flow Rate FiO2 06/26/19 08:00 98.2 80 22 110/64 (79) 97 06/26/19 07:51 87 18 95 Room Air 21 06/26/19 04:00 98.1 78 22 156/66 (96) 98 06/26/19 00:00 98.1 76 20 154/62 (92) 98 06/25/19 21:03 62 18 99 Room Air 21 06/25/19 20:54 70 18 98 Room Air 21 06/25/19 20:28 Room Air 06/25/19 20:24 78 20 96 Room Air 21 06/25/19 20:00 98.1 69 20 146/70 (95) 100 06/25/19 16:00 99.4 72 19 117/37 (63) 92 06/25/19 12:00 99.1 81 24 108/38 (61) 100 06/25/19 09:25 79 93/49 (64) Intake and Output 06/25/19 06/26/19 18:59 06:59 Intake Total 680 ml 730 ml Balance 680 ml 730 ml Free Water 200 ml 250 ml Tube Feeding 480 ml 480 ml # Voids 6 # Bowel Movements 2 Height (Feet): 3 Height (Inches): 0.00 Weight (Pounds): 185 General Appearance: no apparent distress Neck: non-tender, supple Cardiovascular: normal rate, regular rhythm Respiratory/Chest: lungs clear, normal breath sounds Abdomen: non tender, soft Extremities: non-tender Neurologic: alert, responsive Skin: warm/dry Pam Alcantar MD Jun 26, 2019 09:14
[2019-06-26] MEDS: Zinc Sulfate 220mg cap GT SCH (09:33)
[2019-06-26] MEDS: Midodrine 10mg tab GT SCH ×3 (09:34→17:42)
[2019-06-26] MEDS: Nephrovite tab (Rena-Vite) ORAL SCH (09:34)
[2019-06-26 09:56] LABS: ANION GAP 10 mmol/L (5-15); BLOOD UREA NITROGEN 53 mg/dL (7-18); CALCIUM 9.7 MG/DL (8.5-10.1); CARBON DIOXIDE 27 MMOL/L (21-32); CHLORIDE 105 MMOL/L (98-107); CREATININE 7.4 MG/DL (0.55-1.30); PHOSPHORUS 4.7 MG/DL (2.5-4.9); POTASSIUM 4.6 MMOL/L (3.5-5.1); SODIUM 142 MMOL/L (136-145)
[2019-06-26 10:55] LABS: HEMATOCRIT 25.6 % (37.0-47.0); HEMOGLOBIN 7.9 G/DL (12.0-16.0); MEAN CORPUSCULAR VOLUME 94 FL (80-99); PLATELET COUNT 145 K/UL (150-450); RED BLOOD COUNT 2.72 M/UL (4.20-5.40); RED CELL DISTRIBUTION WIDTH 16.7 % (11.6-14.8); WHITE BLOOD COUNT 8.5 K/UL (4.8-10.8)
--- NOTE | 2019-06-26 11:44 | GI Progress Note ---
Assessment/Plan Problems: (1) GI bleed ICD Codes: K92.2 - Gastrointestinal hemorrhage, unspecified SNOMED: 26675696 (2) Anemia due to chronic kidney disease ICD Codes: N18.9 - Chronic kidney disease, unspecified; D63.1 - Anemia in chronic kidney disease SNOMED: 290373217 (3) Septic shock ICD Codes: A41.9 - Sepsis, unspecified organism; R65.21 - Severe sepsis with septic shock SNOMED: 95990511 (4) G tube feedings ICD Codes: Z93.1 - Gastrostomy status SNOMED: 799736617, 036186996, 975321895 Status: stable, unchanged Status Narrative Discussed with Dr. Perales. Assessment/Plan SUMMARY OF FINDINGS: 1. Medium-sized hiatal hernia. 2. Gastritis, status post biopsy. 3. Duodenal ulceration without any evidence of active bleeding or any visible vessel or adherent clot. RECOMMENDATIONS: cont Gtube feeding. Prevacid per G-tube 30 mg daily. Monitor hemoglobin and hematocrit, transfuse as needed. Monitor labs. had BM dc planning per primary team The patient was seen and examined at bedside and all new and available data was reviewed in the patients chart. I agree with the above findings, impression and plan. (Patient seen earlier today. Signature stamp does not reflect patient encounter time.). - Ezequiel Perales MD Subjective Subjective limited Objective Last 24 Hour Vital Signs Date Time Temp Pulse Resp B/P (MAP) Pulse Ox O2 Delivery O2 Flow Rate FiO2 06/26/19 09:00 Room Air 06/26/19 08:00 98.2 80 22 110/64 (79) 97 06/26/19 07:51 87 18 95 Room Air 06/26/19 04:00 98.1 78 22 156/66 (96) 98 06/26/19 00:00 98.1 76 20 154/62 (92) 98 06/25/19 21:03 62 18 99 Room Air 21 06/25/19 20:54 70 18 98 Room Air 06/25/19 20:28 Room Air 06/25/19 20:24 78 20 96 Room Air 21 06/25/19 20:00 98.1 69 20 146/70 (95) 100 06/25/19 16:00 99.4 72 19 117/37 (63) 92 06/25/19 12:00 99.1 81 24 108/38 (61) 100 Intake and Output 06/25/19 06/26/19 18:59 06:59 Intake Total 680 ml 730 ml Balance 680 ml 730 ml Free Water 200 ml 250 ml Tube Feeding 480 ml 480 ml # Voids 6 # Bowel Movements 2 Laboratory Tests Test 06/26/19 08:30 06/26/19 10:40 Sodium Level 142 MMOL/L (136-145) Potassium Level 4.6 MMOL/L (3.5-5.1) Chloride Level 105 MMOL/L (98-107) Carbon Dioxide Level 27 MMOL/L (21-32) Anion Gap 10 mmol/L (5-15) Blood Urea Nitrogen 53 mg/dL (7-18) H Creatinine 7.4 MG/DL (0.55-1.30) H Estimat Glomerular Filtration Rate mL/min (>60) Glucose Level 72 MG/DL (74-106) L Calcium Level 9.7 MG/DL (8.5-10.1) Phosphorus Level 4.7 MG/DL (2.5-4.9) White Blood Count 8.5 K/UL (4.8-10.8) Red Blood Count 2.72 M/UL (4.20-5.40) L Hemoglobin 7.9 G/DL (12.0-16.0) L Hematocrit 25.6 % (37.0-47.0) L Mean Corpuscular Volume 94 FL (80-99) Mean Corpuscular Hemoglobin 28.8 PG (27.0-31.0) Mean Corpuscular Hemoglobin Concent 30.7 G/DL (32.0-36.0) L Red Cell Distribution Width 16.7 % (11.6-14.8) H Platelet Count 145 K/UL (150-450) L Mean Platelet Volume 5.9 FL (6.5-10.1) L Neutrophils (%) (Auto) % (45.0-75.0) Lymphocytes (%) (Auto) % (20.0-45.0) Monocytes (%) (Auto) % (1.0-10.0) Eosinophils (%) (Auto) % (0.0-3.0) Basophils (%) (Auto) % (0.0-2.0) Differential Total Cells Counted 100 Neutrophils % (Manual) 78 % (45-75) H Lymphocytes % (Manual) 14 % (20-45) L Monocytes % (Manual) 3 % (1-10) Eosinophils % (Manual) 5 % (0-3) H Basophils % (Manual) 0 % (0-2) Band Neutrophils 0 % (0-8) Platelet Estimate Decreased L Platelet Morphology Normal Hypochromasia 1+ Anisocytosis 1+ Height (Feet): 3 Height (Inches): 0.00 Weight (Pounds): 185 General Appearance: WD/WN, no apparent distress, alert Cardiovascular: normal rate Respiratory/Chest: normal breath sounds, no respiratory distress Abdominal Exam: normal bowel sounds, non tender, soft Extremities: non-tender Lidia Recio NP Jun 26, 2019 11:44
[2019-06-26] MEDS ORDERED: Heparin Sod 1000 units/ml 10ml IV PRN (13:00)
--- NOTE | 2019-06-26 13:01 | Cardiac Electrophysiology PN ---
Assessment/Plan Assessment/Plan 1. S/P septic shock. Resolved on IV antibiotic. Her EKG showed no acute ischemic changes. Echo Nl EF 60%. RFV line was removed. 2. End-stage renal disease, on hemodialysis. 3. Gastrointestinal bleed and anemia. EGD by Dr Perales showed Gastritis and Duodenal ulceration 4. Decubitus ulcer. 5. Hypertension 6. Diabetes. 7. Dysphagia, status post G-tube. 8. Fever 101. FU by Dr Anna MARINELLI RN Subjective Subjective Nonverbal. RN at bedside. Had nuclear test done. Awaiting Dept of health clearance for questionable hemoptysis Objective Last 24 Hour Vital Signs Date Time Temp Pulse Resp B/P (MAP) Pulse Ox O2 Delivery O2 Flow Rate FiO2 06/26/19 12:00 98.2 66 22 110/77 (88) 97 06/26/19 09:00 Room Air 06/26/19 08:00 98.2 80 22 110/64 (79) 97 06/26/19 07:51 87 18 95 Room Air 21 06/26/19 04:00 98.1 78 22 156/66 (96) 98 06/26/19 00:00 98.1 76 20 154/62 (92) 98 06/25/19 21:03 62 18 99 Room Air 21 06/25/19 20:54 70 18 98 Room Air 21 06/25/19 20:28 Room Air 06/25/19 20:24 78 20 96 Room Air 21 06/25/19 20:00 98.1 69 20 146/70 (95) 100 06/25/19 16:00 99.4 72 19 117/37 (63) 92 Intake and Output 06/25/19 06/26/19 18:59 06:59 Intake Total 680 ml 730 ml Balance 680 ml 730 ml Free Water 200 ml 250 ml Tube Feeding 480 ml 480 ml # Voids 6 # Bowel Movements 2 Laboratory Tests Test 06/26/19 08:30 06/26/19 10:40 Sodium Level 142 MMOL/L (136-145) Potassium Level 4.6 MMOL/L (3.5-5.1) Chloride Level 105 MMOL/L (98-107) Carbon Dioxide Level 27 MMOL/L (21-32) Anion Gap 10 mmol/L (5-15) Blood Urea Nitrogen 53 mg/dL (7-18) H Creatinine 7.4 MG/DL (0.55-1.30) H Estimat Glomerular Filtration Rate mL/min (>60) Glucose Level 72 MG/DL (74-106) L Calcium Level 9.7 MG/DL (8.5-10.1) Phosphorus Level 4.7 MG/DL (2.5-4.9) White Blood Count 8.5 K/UL (4.8-10.8) Red Blood Count 2.72 M/UL (4.20-5.40) L Hemoglobin 7.9 G/DL (12.0-16.0) L Hematocrit 25.6 % (37.0-47.0) L Mean Corpuscular Volume 94 FL (80-99) Mean Corpuscular Hemoglobin 28.8 PG (27.0-31.0) Mean Corpuscular Hemoglobin Concent 30.7 G/DL (32.0-36.0) L Red Cell Distribution Width 16.7 % (11.6-14.8) H Platelet Count 145 K/UL (150-450) L Mean Platelet Volume 5.9 FL (6.5-10.1) L Neutrophils (%) (Auto) % (45.0-75.0) Lymphocytes (%) (Auto) % (20.0-45.0) Monocytes (%) (Auto) % (1.0-10.0) Eosinophils (%) (Auto) % (0.0-3.0) Basophils (%) (Auto) % (0.0-2.0) Differential Total Cells Counted 100 Neutrophils % (Manual) 78 % (45-75) H Lymphocytes % (Manual) 14 % (20-45) L Monocytes % (Manual) 3 % (1-10) Eosinophils % (Manual) 5 % (0-3) H Basophils % (Manual) 0 % (0-2) Band Neutrophils 0 % (0-8) Platelet Estimate Decreased L Platelet Morphology Normal Hypochromasia 1+ Anisocytosis 1+ Objective HEAD AND NECK: Shows no JVD. LUNGS: Coarse rhonchi. CARDIOVASCULAR: Regular S1 and S2 with no gallop. ABDOMEN: Soft. G-tube. EXTREMITIES: Bilateral above-knee amputation. She has a triple-lumen in the right femoral area and dialysis access in the right arm. Will Osborne MD Jun 26, 2019 13:00
[2019-06-26] MEDS ORDERED: NS 275ml ONE (14:07)
--- NOTE | 2019-06-26 15:06 | Infectious Diseases Prog Note ---
Assessment/Plan Problems: (1) Fever Assessment & Plan: while on zyvox and ertapenem, S/P femoral line removal, now improving after adding fluconazole empirically, suspect fungal etiology . bone scan of the pelvis area ruled out osteomyelitis, WBC indium scan was not done due to lack of contrast materials to rule out any occult focus of infection , would continue zyvox, ertapenem and fluconazole for two weeks course of treatment . await fungal serology to rule out fungal pneumonia with lobulated lymph nodes on CT chest . (2) Sepsis Assessment & Plan: with shock due to staphylococcus epidermidis and fever, source most likely sacral/buttock pressure wounds with no evidence of underlying osteomyelitis or abscess . continue zyvox orally and ertapenem IM for 2 weeks , since no IV access . echo transthoracic showed no vegetations . repeated blood culture x 4 is negative so far which confirm clearance. will need two weeks of antibiotics therapy since no evidence of pelvic or sacrum osteomyelitis . EOT 07/01/19 (3) Decubitus skin ulcer Assessment & Plan: with maceration and necrosis , possibly infected, had surgical eval , already on wide spectrum antibiotics , keep off loading with local wound care as needed as per hospital protocol (4) GI bleed Assessment & Plan: monitor H/H , transfuse as needed, GI eval for source control (5) ESRD (end stage renal disease) on dialysis Assessment & Plan: continue HD as per renal , antibiotics renally dosed as per pharmacy (6) Anemia Assessment & Plan: due to the above , transfuse blood as needed, GI eval for source control (7) Cough with hemoptysis Assessment & Plan: resolved, 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 sputum for AFB smear x 3 is negative so far , and PCR MTB is negative , with negative T spot. off air born isolation . doubt TB (8) Mass of left lung Assessment & Plan: infectious VS malignant , await fungal serology , will need CT chest with contrast for confirmation . may need bronch or biopsy for definitive diagnosis . D/W PULMONARY Subjective ROS Limited/Unobtainable: Yes Allergies: Coded Allergies: GABAPENTIN (Unverified Allergy, Unknown, 06/14/19) Subjective she was resting in bed , quiet, nonverbal, awake, no cough or hemoptysis today , no fever today. Objective Vital Signs Last 24 Hour Vital Signs Date Time Temp Pulse Resp B/P (MAP) Pulse Ox O2 Delivery O2 Flow Rate FiO2 06/26/19 12:00 98.2 66 22 110/77 (88) 97 06/26/19 09:00 Room Air 06/26/19 08:00 98.2 80 22 110/64 (79) 97 06/26/19 07:51 87 18 95 Room Air 21 06/26/19 04:00 98.1 78 22 156/66 (96) 98 06/26/19 00:00 98.1 76 20 154/62 (92) 98 06/25/19 21:03 62 18 99 Room Air 21 06/25/19 20:54 70 18 98 Room Air 21 06/25/19 20:28 Room Air 06/25/19 20:24 78 20 96 Room Air 21 06/25/19 20:00 98.1 69 20 146/70 (95) 100 06/25/19 16:00 99.4 72 19 117/37 (63) 92 Height (Feet): 3 Height (Inches): 0.00 Weight (Pounds): 185 General Appearance: WD/WN, no acute distress HEENT: normocephalic, atraumatic, anicteric, mucous membranes moist, PERRL, EOMI, pharynx normal, supple, no JVD Respiratory/Chest: chest wall non-tender, lungs clear, normal breath sounds, no respiratory distress, no accessory muscle use Cardiovascular: normal peripheral pulses, normal rate, regular rhythm, no gallop/murmur, no JVD Abdomen: normal bowel sounds, soft, non tender, no organomegaly, non distended , no mass, no scars Extremities: no cyanosis, no clubbing Skin: no rash, no lesions, no ulcers Neurologic/Psychiatric: alert Lymphatic: no neck adenopathy, no groin adenopathy Musculoskeletal: normal muscle bulk, no effusion Laboratory Tests Test 06/26/19 08:30 06/26/19 10:40 Sodium Level 142 MMOL/L (136-145) Potassium Level 4.6 MMOL/L (3.5-5.1) Chloride Level 105 MMOL/L (98-107) Carbon Dioxide Level 27 MMOL/L (21-32) Anion Gap 10 mmol/L (5-15) Blood Urea Nitrogen 53 mg/dL (7-18) H Creatinine 7.4 MG/DL (0.55-1.30) H Estimat Glomerular Filtration Rate mL/min (>60) Glucose Level 72 MG/DL (74-106) L Calcium Level 9.7 MG/DL (8.5-10.1) Phosphorus Level 4.7 MG/DL (2.5-4.9) White Blood Count 8.5 K/UL (4.8-10.8) Red Blood Count 2.72 M/UL (4.20-5.40) L Hemoglobin 7.9 G/DL (12.0-16.0) L Hematocrit 25.6 % (37.0-47.0) L Mean Corpuscular Volume 94 FL (80-99) Mean Corpuscular Hemoglobin 28.8 PG (27.0-31.0) Mean Corpuscular Hemoglobin Concent 30.7 G/DL (32.0-36.0) L Red Cell Distribution Width 16.7 % (11.6-14.8) H Platelet Count 145 K/UL (150-450) L Mean Platelet Volume 5.9 FL (6.5-10.1) L Neutrophils (%) (Auto) % (45.0-75.0) Lymphocytes (%) (Auto) % (20.0-45.0) Monocytes (%) (Auto) % (1.0-10.0) Eosinophils (%) (Auto) % (0.0-3.0) Basophils (%) (Auto) % (0.0-2.0) Differential Total Cells Counted 100 Neutrophils % (Manual) 78 % (45-75) H Lymphocytes % (Manual) 14 % (20-45) L Monocytes % (Manual) 3 % (1-10) Eosinophils % (Manual) 5 % (0-3) H Basophils % (Manual) 0 % (0-2) Band Neutrophils 0 % (0-8) Platelet Estimate Decreased L Platelet Morphology Normal Hypochromasia 1+ Anisocytosis 1+ Current Medications Medications (Trade) Dose Ordered Sig/Selene Route PRN Reason Start Time Stop Time Status Last Admin Dose Admin Acetaminophen (Tylenol) 650 mg Q4H PRN GT Fever 06/20/19 13:45 07/14/19 13:44 06/21/19 16:09 Albuterol/ Ipratropium (Albuterol/ Ipratropium) 3 ml Q4H PRN HHN Shortness of Breath 06/24/19 13:45 06/28/19 13:44 06/25/19 20:54 Dextrose (Dextrose 50%) 25 ml Q30M PRN IV Hypoglycemia 06/20/19 13:45 07/18/19 20:12 Dextrose (Dextrose 50%) 50 ml Q30M PRN IV hypoglycemia 06/20/19 13:45 07/18/19 20:14 Epoetin Alli (Epoetin Alli(ESRD on dialysis)) 3,000 unit WED-WED-WED SUBQ 06/26/19 21:00 07/26/19 20:59 Epoetin Alli (Epoetin Alli(ESRD on dialysis)) 4,000 unit WED- SUBQ 06/26/19 21:00 07/26/19 20:59 Ertapenem (INVanz) 0.5 gm Q24H IM 06/24/19 18:00 07/01/19 23:00 06/25/19 18:11 Fluconazole (Diflucan) 200 mg Q24H GT 06/21/19 21:00 06/28/19 20:59 06/25/19 20:55 Heparin Sodium (Porcine) (Heparin Sod 1000 units/ml 10ml) 500 unit ONCE PRN IV dialysis 06/26/19 13:00 06/26/19 23:59 Hydralazine HCl (Apresoline) 25 mg Q6H PRN GT For High Blood Pressure 06/20/19 13:45 07/14/19 13:44 Insulin Aspart (NovoLOG) BEFORE MEALS AND HS SUBQ 06/20/19 16:30 07/14/19 20:59 06/21/19 21:39 Lansoprazole (Prevacid) 30 mg BID GT 06/26/19 18:00 07/26/19 17:59 Linezolid (Zyvox) 600 mg EVERY 12 HOURS GT 06/20/19 21:00 07/01/19 23:00 06/26/19 09:33 Midodrine (Pro-Amatine) 10 mg THREE TIMES A DAY GT 06/21/19 13:00 07/21/19 12:59 06/26/19 13:03 Ondansetron HCl (Zofran) 4 mg Q6H PRN IVP Nausea & Vomiting 06/20/19 13:45 07/14/19 13:44 Sodium Chloride 1,000 ml @ 500 mls/hr Q2H PRN IVLG sbp<90 during hd 06/26/19 12:52 06/26/19 23:59 Vitamin B Complex/ Vit C/Folic Acid (Nephrovite) 1 tab DAILY ORAL 06/24/19 20:00 07/24/19 19:59 06/26/19 09:34 Zinc Sulfate (Zinc Sulfate) 220 mg DAILY GT 06/21/19 09:00 06/30/19 08:59 06/26/19 09:33 Morteza Castillo M.D. Jun 26, 2019 15:06
--- NOTE | 2019-06-26 15:21 | Surgery Progress Note ---
Surgery Progress Note Subjective Additional Comments Patient seen and examined bedside. No acute events. Labs improved and stable. Overall exam stable. Micro biology has been negative thus far with no growth to date on recent blood cultures. Objective Last 24 Hour Vital Signs Date Time Temp Pulse Resp B/P (MAP) Pulse Ox O2 Delivery O2 Flow Rate FiO2 06/26/19 12:00 98.2 66 22 110/77 (88) 97 06/26/19 09:00 Room Air 06/26/19 08:00 98.2 80 22 110/64 (79) 97 06/26/19 07:51 87 18 95 Room Air 21 06/26/19 04:00 98.1 78 22 156/66 (96) 98 06/26/19 00:00 98.1 76 20 154/62 (92) 98 06/25/19 21:03 62 18 99 Room Air 21 06/25/19 20:54 70 18 98 Room Air 21 06/25/19 20:28 Room Air 06/25/19 20:24 78 20 96 Room Air 21 06/25/19 20:00 98.1 69 20 146/70 (95) 100 06/25/19 16:00 99.4 72 19 117/37 (63) 92 I&O Intake and Output 06/25/19 06/26/19 18:59 06:59 Intake Total 680 ml 730 ml Balance 680 ml 730 ml Free Water 200 ml 250 ml Tube Feeding 480 ml 480 ml # Voids 6 # Bowel Movements 2 Dressing: saturated Wound: clean Cardiovascular: RSR Respiratory: clear, decreased breath sounds Abdomen: soft, present bowel sounds, other, non-distended Extremities: no cyanosis, other Laboratory Tests Test 06/26/19 08:30 06/26/19 10:40 Sodium Level 142 MMOL/L (136-145) Potassium Level 4.6 MMOL/L (3.5-5.1) Chloride Level 105 MMOL/L (98-107) Carbon Dioxide Level 27 MMOL/L (21-32) Anion Gap 10 mmol/L (5-15) Blood Urea Nitrogen 53 mg/dL (7-18) H Creatinine 7.4 MG/DL (0.55-1.30) H Estimat Glomerular Filtration Rate mL/min (>60) Glucose Level 72 MG/DL (74-106) L Calcium Level 9.7 MG/DL (8.5-10.1) Phosphorus Level 4.7 MG/DL (2.5-4.9) White Blood Count 8.5 K/UL (4.8-10.8) Red Blood Count 2.72 M/UL (4.20-5.40) L Hemoglobin 7.9 G/DL (12.0-16.0) L Hematocrit 25.6 % (37.0-47.0) L Mean Corpuscular Volume 94 FL (80-99) Mean Corpuscular Hemoglobin 28.8 PG (27.0-31.0) Mean Corpuscular Hemoglobin Concent 30.7 G/DL (32.0-36.0) L Red Cell Distribution Width 16.7 % (11.6-14.8) H Platelet Count 145 K/UL (150-450) L Mean Platelet Volume 5.9 FL (6.5-10.1) L Neutrophils (%) (Auto) % (45.0-75.0) Lymphocytes (%) (Auto) % (20.0-45.0) Monocytes (%) (Auto) % (1.0-10.0) Eosinophils (%) (Auto) % (0.0-3.0) Basophils (%) (Auto) % (0.0-2.0) Differential Total Cells Counted 100 Neutrophils % (Manual) 78 % (45-75) H Lymphocytes % (Manual) 14 % (20-45) L Monocytes % (Manual) 3 % (1-10) Eosinophils % (Manual) 5 % (0-3) H Basophils % (Manual) 0 % (0-2) Band Neutrophils 0 % (0-8) Platelet Estimate Decreased L Platelet Morphology Normal Hypochromasia 1+ Anisocytosis 1+ Plan Problems: (1) Decubitus skin ulcer Assessment & Plan: Pt presented on admission with multiple full thickness pressure injuries R ,L buttocks and L ischium .R sacrum extending down to lower R buttocks erythematous with multiple areas with slough,(+) maceration along edges and periwound. Wound is malodorous. Wound with sloth that easily removed with non excisional debridement during clean up / washing. L sacrum extending into L lower buttocks erythematous ,macerated with scattered areas of yellow slough through out base of wound.Wound is malodorous. Small amt seropurulent exudate noted.Periwound noted to have darker skin tone that is indurated. L ischium darker than is normal skin tone and indurated with scattered open wound exuding small amt serous exudate. Incontinence associated dermatitis noted to perineum and medial aspects of both upper thigh.Skin is erythematous and denuded. Pt presented on admission in grossly unkempt state. Full thickness pressure injury to sacrum extending to R and L ischial regions.(L)18cm x (W)14cm. Sacral pressure injury measures(L)6cm x (W)8cm x (D)0.4cm. Scattered slough at base of wound. Muscle is palpable. Wound is now viable. Full thickness wounds R and L buttocks with scattered slough. Non-blanchable erythema with additional skin erosions periwound. Moisture Intertrigo noted to bilat breasts folds. abd folds and bilat groin areas. Skin is dry dry and flaky to both AKA stumps. Small partial thickness wound noted to L AKA (L)0.4cm x (W)0.4cm. Base of wound is moist and viable. Wound cleaned at bedside and non-excisional debridement performed of sloth. Underlying tissue fairly healthy. The is now a stage IV sacral decubitus ulcer in the central portion right above the coccyx with palpable musculature. Wound is deteriorated since last admission. Tx.Plan: Cleanse wound Sacrum with saline. Apply Therahoney to Sacrum,R and L buttocks. Apply Moisture Barrier Paste periwound. Cover with Optifoam drsg Daily and prn. Apply Moisture Barrier Paste to folds of both breasts,abd folds ,and bilat groin areas with each incontinence care. Apply Cavilon Skin Barrier to L AKA daily. Reposition at least every 2hours or as tolerated. Off-load heels with pillow. APM/TIAGO mattress overlay. (2) Sepsis Assessment & Plan: 84-year-old female with hypotension, tachycardia, leukocytosis, abnormal labs. Currently in intensive care unit line removed micro noted and negative growh will monitor On IV antibiotics as per infectious disease Trend labs We will follow with recommendations (3) GI bleed Assessment & Plan: Noted to have hematemesis while in nursing facility. No acute episode of hematemesis at this time stool is noted to be fairly dark Appreciate GI input No further episodes. Has been otherwise stable. On PPI. (4) G tube feedings Assessment & Plan: DAILY ESTIMATED NEEDS: Needs based on ESRD/HD, wound/ 55kg adj for BL AKA 30-35 kcals/kg [id number] total kcals 1.25-1.8 g protein/kg 69-99 g total protein 20-25 mL/kg 0545-3565 total fluid mLs NUTRITION DIAGNOSIS: * Increased kcal/pro intake needs R/T renal dysfunction, wound healing as evidenced by ESRD dx, on HD. admitted w/ advanced wounds including full thickness wounds x3, refer to WC eval (CURRENT TF: Glucerna 1.2 @55) ENTERAL NUTRITION RECOMMENDATIONS: Nepro @ 40ml/hr x 24 hrs + Prosource x1 daily to provide 960ml, 1728kcal, 78g + 11g pro, 698ml free water * WITH HEMODYNAMIC STABILITY, resume TF * Initiate Nepro @ 20ml/hr x 6 hrs, advance 10ml q 4-6 hrs as tolerated to goal. * HOB over 30 degrees/ water flush per MD ADDITIONAL RECOMMENDATIONS: * Calibrated dry wt post HD * Wound healing: add Nephrovite 1 tab QD - Add MAX BID - Add ZnSO4 220mg daily x10 days * Trophic feeds when on pressor support * Monitor Willian Avila Jun 26, 2019 15:21
--- NOTE | 2019-06-26 15:38 | Nephrology Progress Note ---
Assessment/Plan Problem List: (1) ESRD (end stage renal disease) on dialysis (2) GI bleed (3) Decubitus skin ulcer (4) Anemia Assessment: worse Plan HD today increase Epogen follow labs abxs Subjective Subjective In NAD Objective Objective Last 24 Hour Vital Signs Date Time Temp Pulse Resp B/P (MAP) Pulse Ox O2 Delivery O2 Flow Rate FiO2 06/26/19 12:00 98.2 66 22 110/77 (88) 97 06/26/19 09:00 Room Air 06/26/19 08:00 98.2 80 22 110/64 (79) 97 06/26/19 07:51 87 18 95 Room Air 21 06/26/19 04:00 98.1 78 22 156/66 (96) 98 06/26/19 00:00 98.1 76 20 154/62 (92) 98 06/25/19 21:03 62 18 99 Room Air 21 06/25/19 20:54 70 18 98 Room Air 21 06/25/19 20:28 Room Air 06/25/19 20:24 78 20 96 Room Air 21 06/25/19 20:00 98.1 69 20 146/70 (95) 100 06/25/19 16:00 99.4 72 19 117/37 (63) 92 Intake and Output 06/25/19 06/26/19 18:59 06:59 Intake Total 680 ml 730 ml Balance 680 ml 730 ml Free Water 200 ml 250 ml Tube Feeding 480 ml 480 ml # Voids 6 # Bowel Movements 2 Laboratory Tests 06/26/19 08:30: Sodium Level 142, Potassium Level 4.6, Chloride Level 105, Carbon Dioxide Level 27, Anion Gap 10, Blood Urea Nitrogen 53H, Creatinine 7.4H, Estimat Glomerular Filtration Rate , Glucose Level 72L, Calcium Level 9.7, Phosphorus Level 4.7 06/26/19 10:40: White Blood Count 8.5, Red Blood Count 2.72L, Hemoglobin 7.9L, Hematocrit 25.6L , Mean Corpuscular Volume 94, Mean Corpuscular Hemoglobin 28.8, Mean Corpuscular Hemoglobin Concent 30.7L, Red Cell Distribution Width 16.7H, Platelet Count 145L, Mean Platelet Volume 5.9L, Neutrophils (%) (Auto) , Lymphocytes (%) (Auto) , Monocytes (%) (Auto) , Eosinophils (%) (Auto) , Basophils (%) (Auto) , Differential Total Cells Counted 100, Neutrophils % ( Manual) 78H, Lymphocytes % (Manual) 14L, Monocytes % (Manual) 3, Eosinophils % ( Manual) 5H, Basophils % (Manual) 0, Band Neutrophils 0, Platelet Estimate DecreasedL, Platelet Morphology Normal, Hypochromasia 1+, Anisocytosis 1+ Height (Feet): 3 Height (Inches): 0.00 Weight (Pounds): 185 Cardiovascular: normal rate Respiratory/Chest: lungs clear Extremities: moderate edema Aftab Arnold MD Jun 26, 2019 15:38
[2019-06-26] MEDS: Ertapenem (INVanz) 1gm Inj IM SCH (17:42)
[2019-06-26] MEDS: Lansoprazole 15mg cap GT SCH (17:42)
--- NOTE | 2019-06-26 20:48 | Pulmonology Progress Note ---
Assessment/Plan Problems: (1) Septic shock (2) GI bleed (3) Anemia (4) Decubitus skin ulcer (5) ESRD (end stage renal disease) on dialysis (6) DM (diabetes mellitus) (7) G tube feedings (8) HTN (hypertension) Assessment/Plan dc was canceled b/o lack of clearance from [facility] hear rate, bp stable h/h stable EGD done, tolerating feeding check electrolytes med/surg Ct chest reviewed, doubt any lobulated mass. No need to get a contrast CT, considering her underlying multiplicity of comorbidities. Subjective Allergies: Coded Allergies: GABAPENTIN (Unverified Allergy, Unknown, 06/14/19) Objective Last 24 Hour Vital Signs Date Time Temp Pulse Resp B/P (MAP) Pulse Ox O2 Delivery O2 Flow Rate FiO2 06/26/19 20:25 Room Air 06/26/19 20:16 80 18 96 Room Air 21 06/26/19 20:07 98.6 88 14 124/70 (88) 96 06/26/19 19:21 120/70 (87) 06/26/19 16:00 97.9 92 20 141/92 (108) 96 06/26/19 12:00 98.2 66 22 110/77 (88) 97 06/26/19 09:00 Room Air 06/26/19 08:00 98.2 80 22 110/64 (79) 97 06/26/19 07:51 87 18 95 Room Air 21 06/26/19 04:00 98.1 78 22 156/66 (96) 98 06/26/19 00:00 98.1 76 20 154/62 (92) 98 06/25/19 21:03 62 18 99 Room Air 21 06/25/19 20:54 70 18 98 Room Air 21 Intake and Output 06/25/19 06/26/19 19:00 07:00 Intake Total 680 ml 730 ml Balance 680 ml 730 ml Free Water 200 ml 250 ml Tube Feeding 480 ml 480 ml # Voids 6 # Bowel Movements 2 Laboratory Tests 06/26/19 08:30: Sodium Level 142, Potassium Level 4.6, Chloride Level 105, Carbon Dioxide Level 27, Anion Gap 10, Blood Urea Nitrogen 53H, Creatinine 7.4H, Estimat Glomerular Filtration Rate , Glucose Level 72L, Calcium Level 9.7, Phosphorus Level 4.7 06/26/19 10:40: White Blood Count 8.5, Red Blood Count 2.72L, Hemoglobin 7.9L, Hematocrit 25.6L , Mean Corpuscular Volume 94, Mean Corpuscular Hemoglobin 28.8, Mean Corpuscular Hemoglobin Concent 30.7L, Red Cell Distribution Width 16.7H, Platelet Count 145L, Mean Platelet Volume 5.9L, Neutrophils (%) (Auto) , Lymphocytes (%) (Auto) , Monocytes (%) (Auto) , Eosinophils (%) (Auto) , Basophils (%) (Auto) , Differential Total Cells Counted 100, Neutrophils % ( Manual) 78H, Lymphocytes % (Manual) 14L, Monocytes % (Manual) 3, Eosinophils % ( Manual) 5H, Basophils % (Manual) 0, Band Neutrophils 0, Platelet Estimate DecreasedL, Platelet Morphology Normal, Hypochromasia 1+, Anisocytosis 1+ Current Medications Medications (Trade) Dose Ordered Sig/Selene Route PRN Reason Start Time Stop Time Status Last Admin Dose Admin Acetaminophen (Tylenol) 650 mg Q4H PRN GT Fever 06/20/19 13:45 07/14/19 13:44 06/21/19 16:09 Albuterol/ Ipratropium (Albuterol/ Ipratropium) 3 ml Q4H PRN HHN Shortness of Breath 06/24/19 13:45 06/28/19 13:44 06/25/19 20:54 Dextrose (Dextrose 50%) 25 ml Q30M PRN IV Hypoglycemia 06/20/19 13:45 07/18/19 20:12 Dextrose (Dextrose 50%) 50 ml Q30M PRN IV hypoglycemia 06/20/19 13:45 07/18/19 20:14 Epoetin Alli (Epoetin Alli(ESRD on dialysis)) 6,000 unit WED-WED-WED SUBQ 06/26/19 21:00 07/26/19 20:59 Ertapenem (INVanz) 0.5 gm Q24H IM 06/24/19 18:00 07/01/19 23:00 06/26/19 17:42 Fluconazole (Diflucan) 200 mg Q24H GT 06/21/19 21:00 06/28/19 20:59 06/25/19 20:55 Heparin Sodium (Porcine) (Heparin Sod 1000 units/ml 10ml) 500 unit ONCE PRN IV dialysis 06/26/19 13:00 06/26/19 23:59 Hydralazine HCl (Apresoline) 25 mg Q6H PRN GT For High Blood Pressure 06/20/19 13:45 07/14/19 13:44 Insulin Aspart (NovoLOG) BEFORE MEALS AND HS SUBQ 06/20/19 16:30 07/14/19 20:59 06/21/19 21:39 Lansoprazole (Prevacid) 30 mg BID GT 06/26/19 18:00 07/26/19 17:59 06/26/19 17:42 Linezolid (Zyvox) 600 mg EVERY 12 HOURS GT 06/20/19 21:00 07/01/19 23:00 06/26/19 09:33 Midodrine (Pro-Amatine) 10 mg THREE TIMES A DAY GT 06/21/19 13:00 07/21/19 12:59 06/26/19 17:42 Ondansetron HCl (Zofran) 4 mg Q6H PRN IVP Nausea & Vomiting 06/20/19 13:45 07/14/19 13:44 Sodium Chloride 1,000 ml @ 500 mls/hr Q2H PRN IVLG sbp<90 during hd 06/26/19 12:52 06/26/19 23:59 Vitamin B Complex/ Vit C/Folic Acid (Nephrovite) 1 tab DAILY ORAL 06/24/19 20:00 07/24/19 19:59 06/26/19 09:34 Zinc Sulfate (Zinc Sulfate) 220 mg DAILY GT 06/21/19 09:00 06/30/19 08:59 06/26/19 09:33 Rosemary Lui MD Jun 26, 2019 20:48
[2019-06-26] MEDS: Fluconazole 100mg tab GT SCH (20:53)
[2019-06-26] MEDS: Epoetin Alfa-EPBX(ESRD on dialysis)3000 units/ml vial SUBQ SCH (20:54)
[2019-06-26] MEDS ORDERED: Epoetin Alfa-EPBX(ESRD on dialysis)3000 units/ml vial SUBQ SCH ×2 (21:00)
[2019-06-26] MEDS ORDERED: Epoetin Alfa-EPBX(ESRD on dialysis)4000 units/ml vial SUBQ SCH (21:00)
[2019-06-27] VITALS: BP 107/65
[2019-06-27 04:00] VITALS: BP 115/60
[2019-06-27] MEDS: NovoLOG Insulin Flexpen SUBQ SCH ×4 (06:30→20:39)
[2019-06-27 08:00] VITALS: BP 116/42
--- NOTE | 2019-06-27 09:02 | General Progress Note ---
Assessment/Plan Status: stable, unchanged Assessment/Plan: 1. Fever - improved. responding to antifungal txt. cont fluconazole and Abx for now. bone scan negative for osteomyelitis. Health depart clearanced her for discharge. awaiting bed availability at [facility]. 2. Septic Shock - improved. off pressor and doing well. Cont Abx for now. ID following. In Med surg. 3. ESRD on HD - on HD 3x/wk. 4. Sacral pressure ulcer - surgery is following. 5. Upper GI bleed 2nd to duodenal ulcer - H/H currently stable. s/p One unit of PRBC. EGD showed Gastritis and nonbleeding duodenal ulcer. cont prevacid 30 mg bid. 6. Sepsis - cont IV Abx. ID following the patient. blood cultures showed staph Epidermatous. cont abx and antifungal for now. 7. HLD - cont home meds. 8. Gout - cont Allopurinol 9. H/O PVD 10. H/O DVT 11. DM II - cont SSI. 12. HTN - off meds and blood pressure is fine. 13. 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 Cleared by [facility] clearance for discharge. 14. Mass on left lung - most likely 2nd to fungal infection - fungal serology pending. fever improved as well. Pulmonary agrees that it is less likely malignancy and no CT with contrast needed due to multiple comorbidities. Subjective Date patient seen: Jun 27, 2019 Time patient seen: 09:00 Constitutional: Reports: no symptoms HEENT: Reports: no symptoms Cardiovascular: Reports: no symptoms Respiratory: Reports: wheezing Gastrointestinal/Abdominal: Reports: no symptoms Genitourinary: Reports: no symptoms Neurologic/Psychiatric: Reports: no symptoms Endocrine: Reports: no symptoms Hematologic/Lymphatic: Reports: no symptoms Allergies: Coded Allergies: GABAPENTIN (Unverified Allergy, Unknown, 06/14/19) Subjective Patient is in Med Surg. Cleared by [facility] clearance for discharge. Awaiting bed openning at [facility] for today. afebrile. she is ESRD on HD. Objective Last 24 Hour Vital Signs Date Time Temp Pulse Resp B/P (MAP) Pulse Ox O2 Delivery O2 Flow Rate FiO2 06/27/19 08:40 86 18 96 Room Air 21 06/27/19 08:00 98.2 82 22 116/42 (66) 96 06/27/19 04:00 99.0 74 14 115/60 (78) 97 06/27/19 00:00 99.1 89 14 107/65 (79) 94 06/26/19 20:25 Room Air 06/26/19 20:16 80 18 96 Room Air 21 06/26/19 20:07 98.6 88 14 124/70 (88) 96 06/26/19 19:21 120/70 (87) 06/26/19 16:00 97.9 92 20 141/92 (108) 96 06/26/19 12:00 98.2 66 22 110/77 (88) 97 06/26/19 09:00 Room Air Intake and Output 06/26/19 06/27/19 19:00 07:00 Intake Total 680 ml 310 ml Output Total 2100 ml Balance 680 ml -1790 ml Free Water 200 ml 150 ml Tube Feeding 480 ml 160 ml Output Urine Total 600 ml Hemodialysis UF 1500 ml # Voids 2 2 Laboratory Tests 06/26/19 10:40: White Blood Count 8.5, Red Blood Count 2.72L, Hemoglobin 7.9L, Hematocrit 25.6L , Mean Corpuscular Volume 94, Mean Corpuscular Hemoglobin 28.8, Mean Corpuscular Hemoglobin Concent 30.7L, Red Cell Distribution Width 16.7H, Platelet Count 145L, Mean Platelet Volume 5.9L, Neutrophils (%) (Auto) , Lymphocytes (%) (Auto) , Monocytes (%) (Auto) , Eosinophils (%) (Auto) , Basophils (%) (Auto) , Differential Total Cells Counted 100, Neutrophils % ( Manual) 78H, Lymphocytes % (Manual) 14L, Monocytes % (Manual) 3, Eosinophils % ( Manual) 5H, Basophils % (Manual) 0, Band Neutrophils 0, Platelet Estimate DecreasedL, Platelet Morphology Normal, Hypochromasia 1+, Anisocytosis 1+ Height (Feet): 3 Height (Inches): 0.00 Weight (Pounds): 185 General Appearance: no apparent distress EENT: normal ENT inspection Neck: non-tender, supple Cardiovascular: normal rate, regular rhythm Respiratory/Chest: expiratory wheezing Abdomen: non tender, soft Extremities: normal range of motion, non-tender Neurologic: alert, responsive Skin: warm/dry Pam Alcantar MD Jun 27, 2019 09:02
[2019-06-27] MEDS: Zinc Sulfate 220mg cap GT SCH (09:08)
[2019-06-27] MEDS: Lansoprazole 15mg cap GT SCH (09:08)
[2019-06-27] MEDS: Midodrine 10mg tab GT SCH ×3 (09:08→17:13)
[2019-06-27] MEDS: Nephrovite tab (Rena-Vite) ORAL SCH (09:08)
[2019-06-27] MEDS: Albuterol/Ipratropium 3ml neb HHN PRN (10:00)
--- NOTE | 2019-06-27 10:20 | Surgery Progress Note ---
Surgery Progress Note Subjective Additional Comments no acute events micro noted exam unchanged. Objective Last 24 Hour Vital Signs Date Time Temp Pulse Resp B/P (MAP) Pulse Ox O2 Delivery O2 Flow Rate FiO2 06/27/19 10:16 85 18 99 Room Air 21 06/27/19 10:00 76 18 98 Room Air 21 06/27/19 09:00 Room Air 06/27/19 08:40 86 18 96 Room Air 21 06/27/19 08:00 98.2 82 22 116/42 (66) 96 06/27/19 04:00 99.0 74 14 115/60 (78) 97 06/27/19 00:00 99.1 89 14 107/65 (79) 94 06/26/19 20:25 Room Air 06/26/19 20:16 80 18 96 Room Air 21 06/26/19 20:07 98.6 88 14 124/70 (88) 96 06/26/19 19:21 120/70 (87) 06/26/19 16:00 97.9 92 20 141/92 (108) 96 06/26/19 12:00 98.2 66 22 110/77 (88) 97 I&O Intake and Output 06/26/19 06/27/19 19:00 07:00 Intake Total 680 ml 310 ml Output Total 2100 ml Balance 680 ml -1790 ml Free Water 200 ml 150 ml Tube Feeding 480 ml 160 ml Output Urine Total 600 ml Hemodialysis UF 1500 ml # Voids 2 2 Dressing: saturated Wound: clean, other Cardiovascular: RSR Respiratory: clear, decreased breath sounds Abdomen: soft, present bowel sounds Extremities: no cyanosis, other Laboratory Tests Test 06/26/19 10:40 White Blood Count 8.5 K/UL (4.8-10.8) Red Blood Count 2.72 M/UL (4.20-5.40) L Hemoglobin 7.9 G/DL (12.0-16.0) L Hematocrit 25.6 % (37.0-47.0) L Mean Corpuscular Volume 94 FL (80-99) Mean Corpuscular Hemoglobin 28.8 PG (27.0-31.0) Mean Corpuscular Hemoglobin Concent 30.7 G/DL (32.0-36.0) L Red Cell Distribution Width 16.7 % (11.6-14.8) H Platelet Count 145 K/UL (150-450) L Mean Platelet Volume 5.9 FL (6.5-10.1) L Neutrophils (%) (Auto) % (45.0-75.0) Lymphocytes (%) (Auto) % (20.0-45.0) Monocytes (%) (Auto) % (1.0-10.0) Eosinophils (%) (Auto) % (0.0-3.0) Basophils (%) (Auto) % (0.0-2.0) Differential Total Cells Counted 100 Neutrophils % (Manual) 78 % (45-75) H Lymphocytes % (Manual) 14 % (20-45) L Monocytes % (Manual) 3 % (1-10) Eosinophils % (Manual) 5 % (0-3) H Basophils % (Manual) 0 % (0-2) Band Neutrophils 0 % (0-8) Platelet Estimate Decreased L Platelet Morphology Normal Hypochromasia 1+ Anisocytosis 1+ Plan Problems: (1) Decubitus skin ulcer Assessment & Plan: Pt presented on admission with multiple full thickness pressure injuries R ,L buttocks and L ischium .R sacrum extending down to lower R buttocks erythematous with multiple areas with slough,(+) maceration along edges and periwound. Wound is malodorous. Wound with sloth that easily removed with non excisional debridement during clean up / washing. L sacrum extending into L lower buttocks erythematous ,macerated with scattered areas of yellow slough through out base of wound.Wound is malodorous. Small amt seropurulent exudate noted.Periwound noted to have darker skin tone that is indurated. L ischium darker than is normal skin tone and indurated with scattered open wound exuding small amt serous exudate. Incontinence associated dermatitis noted to perineum and medial aspects of both upper thigh.Skin is erythematous and denuded. Pt presented on admission in grossly unkempt state. Full thickness pressure injury to sacrum extending to R and L ischial regions.(L)18cm x (W)14cm. Sacral pressure injury measures(L)6cm x (W)8cm x (D)0.4cm. Scattered slough at base of wound. Muscle is palpable. Wound is now viable. Full thickness wounds R and L buttocks with scattered slough. Non-blanchable erythema with additional skin erosions periwound. Moisture Intertrigo noted to bilat breasts folds. abd folds and bilat groin areas. Skin is dry dry and flaky to both AKA stumps. Small partial thickness wound noted to L AKA (L)0.4cm x (W)0.4cm. Base of wound is moist and viable. Wound cleaned at bedside and non-excisional debridement performed of slot. Underlying tissue fairly healthy. The is now a stage IV sacral decubitus ulcer in the central portion right above the coccyx with palpable musculature. Wound is deteriorated since last admission. Tx.Plan: Cleanse wound Sacrum with saline. Apply Therahoney to Sacrum,R and L buttocks. Apply Moisture Barrier Paste periwound. Cover with Optifoam drsg Daily and prn. Apply Moisture Barrier Paste to folds of both breasts,abd folds ,and bilat groin areas with each incontinence care. Apply Cavilon Skin Barrier to L AKA daily. Reposition at least every 2hours or as tolerated. Off-load heels with pillow. APM/TIAGO mattress overlay. (2) Sepsis Assessment & Plan: 84-year-old female with hypotension, tachycardia, leukocytosis, abnormal labs. Currently in intensive care unit line removed micro noted and negative growh will monitor On IV antibiotics as per infectious disease Trend labs We will follow with recommendations (3) GI bleed Assessment & Plan: Noted to have hematemesis while in nursing facility. No acute episode of hematemesis at this time stool is noted to be fairly dark Appreciate GI input No further episodes. Has been otherwise stable. On PPI. (4) G tube feedings Assessment & Plan: DAILY ESTIMATED NEEDS: Needs based on ESRD/HD, wound/ 55kg adj for BL AKA 30-35 kcals/kg 4306-0808 total kcals 1.25-1.8 g protein/kg 69-99 g total protein 20-25 mL/kg 8462-1421 total fluid mLs NUTRITION DIAGNOSIS: * Increased kcal/pro intake needs R/T renal dysfunction, wound healing as evidenced by ESRD dx, on HD. admitted w/ advanced wounds including full thickness wounds x3, refer to WC maria elena (CURRENT TF: Glucerna 1.2 @55) ENTERAL NUTRITION RECOMMENDATIONS: Nepro @ 40ml/hr x 24 hrs + Prosource x1 daily to provide 960ml, 1728kcal, 78g + 11g pro, 698ml free water * WITH HEMODYNAMIC STABILITY, resume TF * Initiate Nepro @ 20ml/hr x 6 hrs, advance 10ml q 4-6 hrs as tolerated to goal. * HOB over 30 degrees/ water flush per MD ADDITIONAL RECOMMENDATIONS: * Calibrated dry wt post HD * Wound healing: add Nephrovite 1 tab QD - Add MAX BID - Add ZnSO4 220mg daily x10 days * Trophic feeds when on pressor support * Monitor Willian Avila Jun 27, 2019 10:20
--- NOTE | 2019-06-27 11:17 | GI Progress Note ---
Assessment/Plan Problems: (1) GI bleed ICD Codes: K92.2 - Gastrointestinal hemorrhage, unspecified SNOMED: 86883056 (2) Anemia due to chronic kidney disease ICD Codes: N18.9 - Chronic kidney disease, unspecified; D63.1 - Anemia in chronic kidney disease SNOMED: 121100195 (3) Septic shock ICD Codes: A41.9 - Sepsis, unspecified organism; R65.21 - Severe sepsis with septic shock SNOMED: 36565624 (4) G tube feedings ICD Codes: Z93.1 - Gastrostomy status SNOMED: 314030505, 142026783, 297951406 Status: stable Status Narrative Discussed with Dr. Perales. Assessment/Plan SUMMARY OF FINDINGS: 1. Medium-sized hiatal hernia. 2. Gastritis, status post biopsy. 3. Duodenal ulceration without any evidence of active bleeding or any visible vessel or adherent clot. RECOMMENDATIONS: cont Gtube feeding. Prevacid per G-tube 30 mg daily. Monitor hemoglobin and hematocrit, transfuse as needed. Monitor labs. had BM dc planning per primary team The patient was seen and examined at bedside and all new and available data was reviewed in the patients chart. I agree with the above findings, impression and plan. (Patient seen earlier today. Signature stamp does not reflect patient encounter time.). - Ezequiel Perales MD Subjective Subjective limited Objective Last 24 Hour Vital Signs Date Time Temp Pulse Resp B/P (MAP) Pulse Ox O2 Delivery O2 Flow Rate FiO2 06/27/19 10:16 85 18 99 Room Air 21 06/27/19 10:00 76 18 98 Room Air 06/27/19 09:00 Room Air 06/27/19 08:40 86 18 96 Room Air 06/27/19 08:00 98.2 82 22 116/42 (66) 96 06/27/19 04:00 99.0 74 14 115/60 (78) 97 06/27/19 00:00 99.1 89 14 107/65 (79) 94 06/26/19 20:25 Room Air 06/26/19 20:16 80 18 96 Room Air 06/26/19 20:07 98.6 88 14 124/70 (88) 96 06/26/19 19:21 120/70 (87) 06/26/19 16:00 97.9 92 20 141/92 (108) 96 06/26/19 12:00 98.2 66 22 110/77 (88) 97 Intake and Output 06/26/19 06/27/19 19:00 07:00 Intake Total 680 ml 310 ml Output Total 2100 ml Balance 680 ml -1790 ml Free Water 200 ml 150 ml Tube Feeding 480 ml 160 ml Output Urine Total 600 ml Hemodialysis UF 1500 ml # Voids 2 2 Height (Feet): 3 Height (Inches): 0.00 Weight (Pounds): 185 General Appearance: no apparent distress Cardiovascular: normal rate Respiratory/Chest: normal breath sounds, no respiratory distress Abdominal Exam: normal bowel sounds, non tender, soft Extremities: non-tender Lidia Recio NP Jun 27, 2019 11:17
--- NOTE | 2019-06-27 11:24 | Nephrology Progress Note ---
Assessment/Plan Problem List: (1) ESRD (end stage renal disease) on dialysis (2) Septic shock (3) GI bleed (4) Decubitus skin ulcer (5) G tube feedings (6) DM (diabetes mellitus) (7) HTN (hypertension) Assessment ESRD Hematemesis Decubs Anemia Leukocytosis fever / Sepsis / shock h/o Pancreatitis h/o DM & HTN Plan HD done 06/26 next 06/28 if still in house s/p transfusion Keep BP above 100 syst, on Midodrine per consultants Subjective ROS Limited/Unobtainable: No Constitutional: Reports: malaise, weakness Objective Objective Last 24 Hour Vital Signs Date Time Temp Pulse Resp B/P (MAP) Pulse Ox O2 Delivery O2 Flow Rate FiO2 06/27/19 10:16 85 18 99 Room Air 21 06/27/19 10:00 76 18 98 Room Air 21 06/27/19 09:00 Room Air 06/27/19 08:40 86 18 96 Room Air 21 06/27/19 08:00 98.2 82 22 116/42 (66) 96 06/27/19 04:00 99.0 74 14 115/60 (78) 97 06/27/19 00:00 99.1 89 14 107/65 (79) 94 06/26/19 20:25 Room Air 06/26/19 20:16 80 18 96 Room Air 21 06/26/19 20:07 98.6 88 14 124/70 (88) 96 06/26/19 19:21 120/70 (87) 06/26/19 16:00 97.9 92 20 141/92 (108) 96 06/26/19 12:00 98.2 66 22 110/77 (88) 97 Intake and Output 06/26/19 06/27/19 19:00 07:00 Intake Total 680 ml 310 ml Output Total 2100 ml Balance 680 ml -1790 ml Free Water 200 ml 150 ml Tube Feeding 480 ml 160 ml Output Urine Total 600 ml Hemodialysis UF 1500 ml # Voids 2 2 Height (Feet): 3 Height (Inches): 0.00 Weight (Pounds): 185 General Appearance: no apparent distress Cardiovascular: normal rate Respiratory/Chest: decreased breath sounds Abdomen: soft, distended Objective no change Matthew Rich MD Jun 27, 2019 11:24
--- NOTE | 2019-06-27 11:26 | Cardiac Electrophysiology PN ---
Assessment/Plan Assessment/Plan 1. S/P septic shock. Resolved on IV antibiotic. Her EKG showed no acute ischemic changes. Echo Nl EF 60%. RFV line was removed. 2. End-stage renal disease, on hemodialysis. 3. Gastrointestinal bleed and anemia. EGD by Dr Perales showed Gastritis and Duodenal ulceration 4. Decubitus ulcer. 5. Hypertension 6. Diabetes. 7. Dysphagia, status post G-tube. 8. Fever 101. FU by Dr Castillo. Scan pending DW RN Subjective Subjective Nonverbal. RN at bedside.Is going for second part of nuclear test today. Had HD yesterday Objective Last 24 Hour Vital Signs Date Time Temp Pulse Resp B/P (MAP) Pulse Ox O2 Delivery O2 Flow Rate FiO2 06/27/19 10:16 85 18 99 Room Air 21 06/27/19 10:00 76 18 98 Room Air 21 06/27/19 09:00 Room Air 06/27/19 08:40 86 18 96 Room Air 21 06/27/19 08:00 98.2 82 22 116/42 (66) 96 06/27/19 04:00 99.0 74 14 115/60 (78) 97 06/27/19 00:00 99.1 89 14 107/65 (79) 94 06/26/19 20:25 Room Air 06/26/19 20:16 80 18 96 Room Air 21 06/26/19 20:07 98.6 88 14 124/70 (88) 96 06/26/19 19:21 120/70 (87) 06/26/19 16:00 97.9 92 20 141/92 (108) 96 06/26/19 12:00 98.2 66 22 110/77 (88) 97 Intake and Output 06/26/19 06/27/19 18:59 06:59 Intake Total 680 ml 350 ml Output Total 2100 ml Balance 680 ml -1750 ml Free Water 200 ml 150 ml Tube Feeding 480 ml 200 ml Output Urine Total 600 ml Hemodialysis UF 1500 ml # Voids 2 2 Objective HEAD AND NECK: Shows no JVD. LUNGS: Coarse rhonchi. CARDIOVASCULAR: Regular S1 and S2 with no gallop. ABDOMEN: Soft. G-tube. EXTREMITIES: Bilateral above-knee amputation. She has a triple-lumen in the right femoral area and dialysis access in the right arm. Will Osborne MD Jun 27, 2019 11:26
[2019-06-27 12:00] VITALS: BP 102/45
--- NOTE | 2019-06-27 14:12 | Diagnostic Imaging Report ---
Indication: Fever of unknown origin. Decubitus ulcer Technique: 455 microcuries of Indium labelled WBCs was injected intravenously. Labelling performed using an in-vitro technique. A whole-body bone scan was then performed in anterior and posterior projections after a 24 hour delay. Comparison: None Findings: . Normal uptake is demonstrated throughout the body. Impression: Normal whole body WBC scan
[2019-06-27] MEDS ORDERED: Lidocaine 1% MPF 10mg/ml 5ml ONE (14:21)
--- NOTE | 2019-06-27 14:30 | Infectious Diseases Prog Note ---
Assessment/Plan Problems: (1) Fever Assessment & Plan: while on zyvox and ertapenem, S/P femoral line removal, now improving after adding fluconazole empirically, suspect fungal etiology . bone scan of the pelvis area ruled out osteomyelitis, WBC indium scan was negative for occult focus of infection . continue zyvox, ertapenem and fluconazole for two weeks course of treatment . await fungal serology to rule out fungal pneumonia with lobulated lymph nodes on CT chest . (2) Sepsis Assessment & Plan: with shock due to staphylococcus epidermidis and fever, source most likely sacral/buttock pressure wounds with no evidence of underlying osteomyelitis or abscess . continue zyvox orally and ertapenem IM for 2 weeks , since no IV access . echo transthoracic showed no vegetations . repeated blood culture x 4 is negative so far which confirm clearance. will need two weeks of antibiotics therapy since no evidence of pelvic or sacrum osteomyelitis . EOT 07/01/19 (3) Decubitus skin ulcer Assessment & Plan: with maceration and necrosis , possibly infected, had surgical eval , already on wide spectrum antibiotics , keep off loading with local wound care as needed as per hospital protocol (4) GI bleed Assessment & Plan: monitor H/H , transfuse as needed, GI eval for source control (5) ESRD (end stage renal disease) on dialysis Assessment & Plan: continue HD as per renal , antibiotics renally dosed as per pharmacy (6) Anemia Assessment & Plan: due to the above , transfuse blood as needed, GI eval for source control (7) Cough with hemoptysis Assessment & Plan: resolved, 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 sputum for AFB smear x 3 is negative so far , and PCR MTB is negative , with negative T spot. off air born isolation . doubt TB (8) Mass of left lung Assessment & Plan: infectious VS malignant , await fungal serology , will need CT chest with contrast for confirmation . may need bronch or biopsy for definitive diagnosis . D/W PULMONARY Subjective ROS Limited/Unobtainable: Yes Allergies: Coded Allergies: GABAPENTIN (Unverified Allergy, Unknown, 06/14/19) Subjective she was resting in bed , quiet, nonverbal, awake, no cough or hemoptysis today , no fever today. Objective Vital Signs Last 24 Hour Vital Signs Date Time Temp Pulse Resp B/P (MAP) Pulse Ox O2 Delivery O2 Flow Rate FiO2 06/27/19 12:00 98.2 88 22 102/45 (64) 98 06/27/19 10:16 85 18 99 Room Air 21 06/27/19 10:00 76 18 98 Room Air 21 06/27/19 09:00 Room Air 06/27/19 08:40 86 18 96 Room Air 21 06/27/19 08:00 98.2 82 22 116/42 (66) 96 06/27/19 04:00 99.0 74 14 115/60 (78) 97 06/27/19 00:00 99.1 89 14 107/65 (79) 94 06/26/19 20:25 Room Air 06/26/19 20:16 80 18 96 Room Air 21 06/26/19 20:07 98.6 88 14 124/70 (88) 96 06/26/19 19:21 120/70 (87) 06/26/19 16:00 97.9 92 20 141/92 (108) 96 Height (Feet): 3 Height (Inches): 0.00 Weight (Pounds): 185 General Appearance: WD/WN, no acute distress HEENT: normocephalic, atraumatic, anicteric, mucous membranes moist, PERRL Respiratory/Chest: chest wall non-tender, lungs clear, normal breath sounds, no respiratory distress, no accessory muscle use Cardiovascular: normal peripheral pulses, normal rate, regular rhythm, no gallop/murmur, no JVD Abdomen: normal bowel sounds, soft, non tender, no organomegaly, non distended , no mass, no scars Genitourinary: normal external genitalia Extremities: no cyanosis, no clubbing Skin: no rash, no lesions, ulcers Neurologic/Psychiatric: alert, unresponsiveness Lymphatic: no neck adenopathy, no groin adenopathy Musculoskeletal: normal muscle bulk, no effusion Current Medications Medications (Trade) Dose Ordered Sig/Selene Route PRN Reason Start Time Stop Time Status Last Admin Dose Admin Acetaminophen (Tylenol) 650 mg Q4H PRN GT Fever 06/20/19 13:45 07/14/19 13:44 06/21/19 16:09 Albuterol/ Ipratropium (Albuterol/ Ipratropium) 3 ml Q4H PRN HHN Shortness of Breath 06/24/19 13:45 06/28/19 13:44 06/27/19 10:00 Dextrose (Dextrose 50%) 25 ml Q30M PRN IV Hypoglycemia 06/20/19 13:45 07/18/19 20:12 Dextrose (Dextrose 50%) 50 ml Q30M PRN IV hypoglycemia 06/20/19 13:45 07/18/19 20:14 Epoetin Alli (Epoetin Alli(ESRD on dialysis)) 6,000 unit SUBQ 06/26/19 21:00 07/26/19 20:59 06/26/19 20:54 Ertapenem (INVanz) 0.5 gm Q24H IM 06/24/19 18:00 07/01/19 23:00 06/26/19 17:42 Fluconazole (Diflucan) 200 mg Q24H GT 06/21/19 21:00 06/28/19 20:59 06/26/19 20:53 Hydralazine HCl (Apresoline) 25 mg Q6H PRN GT For High Blood Pressure 06/20/19 13:45 07/14/19 13:44 Insulin Aspart (NovoLOG) BEFORE MEALS AND HS SUBQ 06/20/19 16:30 07/14/19 20:59 06/21/19 21:39 Lansoprazole (Prevacid) 30 mg BID GT 06/27/19 18:00 07/26/19 17:59 Linezolid (Zyvox) 600 mg EVERY 12 HOURS GT 06/20/19 21:00 07/01/19 23:00 06/27/19 09:08 Midodrine (Pro-Amatine) 10 mg THREE TIMES A DAY GT 06/21/19 13:00 07/21/19 12:59 06/27/19 13:37 Ondansetron HCl (Zofran) 4 mg Q6H PRN IVP Nausea & Vomiting 06/20/19 13:45 07/14/19 13:44 Vitamin B Complex/ Vit C/Folic Acid (Nephrovite) 1 tab DAILY ORAL 06/24/19 20:00 07/24/19 19:59 06/27/19 09:08 Zinc Sulfate (Zinc Sulfate) 220 mg DAILY GT 06/21/19 09:00 06/30/19 08:59 06/27/19 09:08 Morteza aCstillo M.D. Jun 27, 2019 14:30
[2019-06-27 16:00] VITALS: BP 95/51
[2019-06-27] MEDS: Ertapenem (INVanz) 1gm Inj IM SCH (18:15)
[2019-06-27 20:00] VITALS: BP 100/51
[2019-06-27] MEDS: Fluconazole 100mg tab GT SCH (20:39)
--- NOTE | 2019-06-27 21:47 | Pulmonology Progress Note ---
Assessment/Plan Problems: (1) Septic shock (2) GI bleed (3) Anemia (4) Decubitus skin ulcer (5) ESRD (end stage renal disease) on dialysis (6) DM (diabetes mellitus) (7) G tube feedings (8) HTN (hypertension) Assessment/Plan dc was canceled b/o lack of clearance from [facility] hear rate, bp stable h/h stable EGD done, tolerating feeding check electrolytes med/surg Ct chest reviewed, doubt any lobulated mass. No need to get a contrast CT, considering her underlying multiplicity of comorbidities. Subjective Allergies: Coded Allergies: GABAPENTIN (Unverified Allergy, Unknown, 06/14/19) Objective Last 24 Hour Vital Signs Date Time Temp Pulse Resp B/P (MAP) Pulse Ox O2 Delivery O2 Flow Rate FiO2 06/27/19 21:00 Room Air 06/27/19 20:00 98.9 78 18 100/51 (67) 95 06/27/19 19:52 82 18 97 Room Air 21 06/27/19 16:00 98.1 83 22 95/51 (66) 98 06/27/19 12:00 98.2 88 22 102/45 (64) 98 06/27/19 10:16 85 18 99 Room Air 21 06/27/19 10:00 76 18 98 Room Air 21 06/27/19 09:00 Room Air 06/27/19 08:40 86 18 96 Room Air 21 06/27/19 08:00 98.2 82 22 116/42 (66) 96 06/27/19 04:00 99.0 74 14 115/60 (78) 97 06/27/19 00:00 99.1 89 14 107/65 (79) 94 Intake and Output 06/26/19 06/27/19 19:00 07:00 Intake Total 680 ml 350 ml Output Total 2100 ml Balance 680 ml -1750 ml Free Water 200 ml 150 ml Tube Feeding 480 ml 200 ml Output Urine Total 600 ml Hemodialysis UF 1500 ml # Voids 2 2 Current Medications Medications (Trade) Dose Ordered Sig/Selene Route PRN Reason Start Time Stop Time Status Last Admin Dose Admin Acetaminophen (Tylenol) 650 mg Q4H PRN GT Fever 06/20/19 13:45 07/14/19 13:44 06/21/19 16:09 Albuterol/ Ipratropium (Albuterol/ Ipratropium) 3 ml Q4H PRN HHN Shortness of Breath 06/24/19 13:45 06/28/19 13:44 06/27/19 10:00 Dextrose (Dextrose 50%) 25 ml Q30M PRN IV Hypoglycemia 06/20/19 13:45 07/18/19 20:12 Dextrose (Dextrose 50%) 50 ml Q30M PRN IV hypoglycemia 06/20/19 13:45 07/18/19 20:14 Epoetin Alli (Epoetin Alli(ESRD on dialysis)) 6,000 unit WED- SUBQ 06/26/19 21:00 07/26/19 20:59 06/26/19 20:54 Ertapenem (INVanz) 0.5 gm Q24H IM 06/24/19 18:00 07/01/19 23:00 06/27/19 18:15 Fluconazole (Diflucan) 200 mg Q24H GT 06/21/19 21:00 07/01/19 23:00 06/27/19 20:39 Hydralazine HCl (Apresoline) 25 mg Q6H PRN GT For High Blood Pressure 06/20/19 13:45 07/14/19 13:44 Insulin Aspart (NovoLOG) BEFORE MEALS AND HS SUBQ 06/20/19 16:30 07/14/19 20:59 06/21/19 21:39 Lansoprazole (Prevacid) 30 mg BID GT 06/27/19 18:00 07/26/19 17:59 06/27/19 17:13 Linezolid (Zyvox) 600 mg EVERY 12 HOURS GT 06/20/19 21:00 07/01/19 23:00 06/27/19 20:39 Midodrine (Pro-Amatine) 10 mg THREE TIMES A DAY GT 06/21/19 13:00 07/21/19 12:59 06/27/19 17:13 Ondansetron HCl (Zofran) 4 mg Q6H PRN IVP Nausea & Vomiting 06/20/19 13:45 07/14/19 13:44 Vitamin B Complex/ Vit C/Folic Acid (Nephrovite) 1 tab DAILY ORAL 06/24/19 20:00 07/24/19 19:59 06/27/19 09:08 Zinc Sulfate (Zinc Sulfate) 220 mg DAILY GT 06/21/19 09:00 06/30/19 08:59 06/27/19 09:08 Rosemary Lui MD Jun 27, 2019 21:47
[2019-06-28] VITALS (7 sets, daily range): BP systolic 97–136; BP diastolic 45–95
[2019-06-28] MEDS: NovoLOG Insulin Flexpen SUBQ SCH ×4 (06:30→21:00)
[2019-06-28 06:37] LABS: HEMOGLOBIN 7.7 G/DL (12.0-16.0); MEAN CORPUSCULAR VOLUME 94 FL (80-99); PLATELET COUNT 119 K/UL (150-450); RED BLOOD COUNT 2.66 M/UL (4.20-5.40); RED CELL DISTRIBUTION WIDTH 15.9 % (11.6-14.8); WHITE BLOOD COUNT 6.2 K/UL (4.8-10.8)
[2019-06-28 07:00] LABS: ANION GAP 9 mmol/L (5-15); BLOOD UREA NITROGEN 44 mg/dL (7-18); CALCIUM 9.3 MG/DL (8.5-10.1); CARBON DIOXIDE 29 MMOL/L (21-32); CHLORIDE 103 MMOL/L (98-107); CREATININE 6.5 MG/DL (0.55-1.30); POTASSIUM 3.7 MMOL/L (3.5-5.1); SODIUM 140 MMOL/L (136-145)
--- NOTE | 2019-06-28 08:57 | General Progress Note ---
Assessment/Plan Status: stable Assessment/Plan: 1. Fever - resolved. responding to antifungal txt. cont fluconazole and Abx for now. bone scan negative for osteomyelitis. Health depart clearanced her for discharge. awaiting bed availability at [facility] or [facility]. 2. Septic Shock - improved. off pressor and doing well. Cont Abx for now. ID following. In Med surg. 3. ESRD on HD - on HD 3x/wk. 4. Sacral pressure ulcer - surgery is following. 5. Upper GI bleed 2nd to duodenal ulcer - H/H currently stable. s/p One unit of PRBC. EGD showed Gastritis and nonbleeding duodenal ulcer. cont prevacid 30 mg bid. 6. Sepsis - cont IV Abx. ID following the patient. blood cultures showed staph Epidermatous. cont abx and antifungal for now. 7. HLD - cont home meds. 8. Gout - cont Allopurinol 9. H/O PVD 10. H/O DVT 11. DM II - cont SSI. 12. HTN - off meds and blood pressure is fine. 13. 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 Cleared by [facility] clearance for discharge. 14. Mass on left lung - most likely 2nd to fungal infection - fungal serology pending. fever improved as well. Pulmonary agrees that it is less likely malignancy and no CT with contrast needed due to multiple comorbidities. Subjective Date patient seen: Jun 28, 2019 Time patient seen: 08:45 Constitutional: Reports: no symptoms HEENT: Reports: no symptoms Cardiovascular: Reports: no symptoms Respiratory: Reports: no symptoms Gastrointestinal/Abdominal: Reports: no symptoms Genitourinary: Reports: no symptoms Neurologic/Psychiatric: Reports: no symptoms Endocrine: Reports: no symptoms Hematologic/Lymphatic: Reports: no symptoms Allergies: Coded Allergies: GABAPENTIN (Unverified Allergy, Unknown, 06/14/19) Subjective Patient is in Med Surg. Awaiting bed openning at [facility] for today. afebrile. she is ESRD on HD. Objective Last 24 Hour Vital Signs Date Time Temp Pulse Resp B/P (MAP) Pulse Ox O2 Delivery O2 Flow Rate FiO2 06/28/19 08:16 84 18 96 Room Air 21 06/28/19 04:00 98.4 77 18 124/95 (105) 95 06/28/19 00:44 98.5 77 18 97/53 (68) 95 06/27/19 21:00 Room Air 06/27/19 20:00 98.9 78 18 100/51 (67) 95 06/27/19 19:52 82 18 97 Room Air 21 06/27/19 16:00 98.1 83 22 95/51 (66) 98 06/27/19 12:00 98.2 88 22 102/45 (64) 98 06/27/19 10:16 85 18 99 Room Air 21 06/27/19 10:00 76 18 98 Room Air 21 06/27/19 09:00 Room Air Intake and Output 06/27/19 06/28/19 19:00 07:00 Intake Total 700 ml 320 ml Balance 700 ml 320 ml Free Water 300 ml Tube Feeding 400 ml 320 ml # Voids 3 # Bowel Movements 2 Laboratory Tests 06/28/19 05:45: White Blood Count 6.2, Red Blood Count 2.66L, Hemoglobin 7.7L, Hematocrit 25.0L , Mean Corpuscular Volume 94, Mean Corpuscular Hemoglobin 28.8, Mean Corpuscular Hemoglobin Concent 30.7L, Red Cell Distribution Width 15.9H, Platelet Count 119L, Mean Platelet Volume 6.5, Neutrophils (%) (Auto) , Lymphocytes (%) (Auto) , Monocytes (%) (Auto) , Eosinophils (%) (Auto) , Basophils (%) (Auto) , Differential Total Cells Counted 100, Neutrophils % ( Manual) 77H, Lymphocytes % (Manual) 16L, Monocytes % (Manual) 2, Eosinophils % ( Manual) 5H, Basophils % (Manual) 0, Band Neutrophils 0, Platelet Estimate DecreasedL, Platelet Morphology Normal, Hypochromasia 1+, Anisocytosis 1+, Sodium Level 140, Potassium Level 3.7, Chloride Level 103, Carbon Dioxide Level 29, Anion Gap 9, Blood Urea Nitrogen 44H, Creatinine 6.5H, Estimat Glomerular Filtration Rate , Glucose Level 84, Calcium Level 9.3 Height (Feet): 3 Height (Inches): 0.00 Weight (Pounds): 182 General Appearance: no apparent distress, alert Neck: non-tender, supple Cardiovascular: normal rate, regular rhythm Respiratory/Chest: lungs clear, normal breath sounds Abdomen: normal bowel sounds, non tender, soft Extremities: other - bilateral above the knee amputation Neurologic: responsive Skin: warm/dry Pam Alcantar MD Jun 28, 2019 08:57
[2019-06-28] MEDS ORDERED: Lidocaine 1% MPF 10mg/ml 5ml ONE (09:02)
[2019-06-28] MEDS: Nephrovite tab (Rena-Vite) ORAL SCH (09:17)
[2019-06-28] MEDS: Zinc Sulfate 220mg cap GT SCH (09:17)
[2019-06-28] MEDS: Midodrine 10mg tab GT SCH ×4 (09:17→18:35)
--- NOTE | 2019-06-28 10:53 | GI Progress Note ---
Assessment/Plan Problems: (1) GI bleed ICD Codes: K92.2 - Gastrointestinal hemorrhage, unspecified SNOMED: 03777091 (2) Anemia due to chronic kidney disease ICD Codes: N18.9 - Chronic kidney disease, unspecified; D63.1 - Anemia in chronic kidney disease SNOMED: 520396633 (3) Septic shock ICD Codes: A41.9 - Sepsis, unspecified organism; R65.21 - Severe sepsis with septic shock SNOMED: 72967182 (4) G tube feedings ICD Codes: Z93.1 - Gastrostomy status SNOMED: 624547541, 933741972, 488615170 Status: stable Status Narrative Discussed with Dr. Perales. Assessment/Plan SUMMARY OF FINDINGS: 1. Medium-sized hiatal hernia. 2. Gastritis, status post biopsy. 3. Duodenal ulceration without any evidence of active bleeding or any visible vessel or adherent clot. RECOMMENDATIONS: cont Gtube feeding. Prevacid per G-tube 30 mg daily. Monitor hemoglobin and hematocrit, transfuse as needed. Monitor labs. had BM dc planning per primary team The patient was seen and examined at bedside and all new and available data was reviewed in the patients chart. I agree with the above findings, impression and plan. (Patient seen earlier today. Signature stamp does not reflect patient encounter time.). - Ezequiel Perales MD Subjective Subjective limited Objective Last 24 Hour Vital Signs Date Time Temp Pulse Resp B/P (MAP) Pulse Ox O2 Delivery O2 Flow Rate FiO2 06/28/19 09:00 Room Air 06/28/19 08:16 84 18 96 Room Air 21 06/28/19 08:00 98.9 76 18 136/60 (85) 98 06/28/19 04:00 98.4 77 18 124/95 (105) 95 06/28/19 00:44 98.5 77 18 97/53 (68) 95 06/27/19 21:00 Room Air 06/27/19 20:00 98.9 78 18 100/51 (67) 95 06/27/19 19:52 82 18 97 Room Air 21 06/27/19 16:00 98.1 83 22 95/51 (66) 98 06/27/19 12:00 98.2 88 22 102/45 (64) 98 Intake and Output 06/27/19 06/28/19 19:00 07:00 Intake Total 700 ml 320 ml Balance 700 ml 320 ml Free Water 300 ml Tube Feeding 400 ml 320 ml # Voids 3 # Bowel Movements 2 Laboratory Tests Test 06/28/19 05:45 White Blood Count 6.2 K/UL (4.8-10.8) Red Blood Count 2.66 M/UL (4.20-5.40) L Hemoglobin 7.7 G/DL (12.0-16.0) L Hematocrit 25.0 % (37.0-47.0) L Mean Corpuscular Volume 94 FL (80-99) Mean Corpuscular Hemoglobin 28.8 PG (27.0-31.0) Mean Corpuscular Hemoglobin Concent 30.7 G/DL (32.0-36.0) L Red Cell Distribution Width 15.9 % (11.6-14.8) H Platelet Count 119 K/UL (150-450) L Mean Platelet Volume 6.5 FL (6.5-10.1) Neutrophils (%) (Auto) % (45.0-75.0) Lymphocytes (%) (Auto) % (20.0-45.0) Monocytes (%) (Auto) % (1.0-10.0) Eosinophils (%) (Auto) % (0.0-3.0) Basophils (%) (Auto) % (0.0-2.0) Differential Total Cells Counted 100 Neutrophils % (Manual) 77 % (45-75) H Lymphocytes % (Manual) 16 % (20-45) L Monocytes % (Manual) 2 % (1-10) Eosinophils % (Manual) 5 % (0-3) H Basophils % (Manual) 0 % (0-2) Band Neutrophils 0 % (0-8) Platelet Estimate Decreased L Platelet Morphology Normal Hypochromasia 1+ Anisocytosis 1+ Sodium Level 140 MMOL/L (136-145) Potassium Level 3.7 MMOL/L (3.5-5.1) Chloride Level 103 MMOL/L (98-107) Carbon Dioxide Level 29 MMOL/L (21-32) Anion Gap 9 mmol/L (5-15) Blood Urea Nitrogen 44 mg/dL (7-18) H Creatinine 6.5 MG/DL (0.55-1.30) H Estimat Glomerular Filtration Rate mL/min (>60) Glucose Level 84 MG/DL (74-106) Calcium Level 9.3 MG/DL (8.5-10.1) Height (Feet): 3 Height (Inches): 0.00 Weight (Pounds): 182 General Appearance: WD/WN, no apparent distress, alert Cardiovascular: normal rate Respiratory/Chest: normal breath sounds, no respiratory distress Abdominal Exam: normal bowel sounds, non tender, soft Extremities: non-tender Lidia Recio [employer] Jun 28, 2019 10:53
--- NOTE | 2019-06-28 11:27 | Nephrology Progress Note ---
Assessment/Plan Problem List: (1) ESRD (end stage renal disease) on dialysis (2) Septic shock (3) GI bleed (4) Decubitus skin ulcer (5) G tube feedings (6) DM (diabetes mellitus) (7) HTN (hypertension) Assessment ESRD Hematemesis Decubs Anemia Leukocytosis fever / Sepsis / shock h/o Pancreatitis h/o DM & HTN Plan HD done 06/26 next 06/28 s/p transfusion Keep BP above 100 syst, on Midodrine per consultants Subjective ROS Limited/Unobtainable: No Constitutional: Reports: malaise, weakness Objective Objective Last 24 Hour Vital Signs Date Time Temp Pulse Resp B/P (MAP) Pulse Ox O2 Delivery O2 Flow Rate FiO2 06/28/19 09:00 Room Air 06/28/19 08:16 84 18 96 Room Air 21 06/28/19 08:00 98.9 76 18 136/60 (85) 98 06/28/19 04:00 98.4 77 18 124/95 (105) 95 06/28/19 00:44 98.5 77 18 97/53 (68) 95 06/27/19 21:00 Room Air 06/27/19 20:00 98.9 78 18 100/51 (67) 95 06/27/19 19:52 82 18 97 Room Air 21 06/27/19 16:00 98.1 83 22 95/51 (66) 98 06/27/19 12:00 98.2 88 22 102/45 (64) 98 Intake and Output 06/27/19 06/28/19 19:00 07:00 Intake Total 700 ml 320 ml Balance 700 ml 320 ml Free Water 300 ml Tube Feeding 400 ml 320 ml # Voids 3 # Bowel Movements 2 Laboratory Tests 06/28/19 05:45: White Blood Count 6.2, Red Blood Count 2.66L, Hemoglobin 7.7L, Hematocrit 25.0L , Mean Corpuscular Volume 94, Mean Corpuscular Hemoglobin 28.8, Mean Corpuscular Hemoglobin Concent 30.7L, Red Cell Distribution Width 15.9H, Platelet Count 119L, Mean Platelet Volume 6.5, Neutrophils (%) (Auto) , Lymphocytes (%) (Auto) , Monocytes (%) (Auto) , Eosinophils (%) (Auto) , Basophils (%) (Auto) , Differential Total Cells Counted 100, Neutrophils % ( Manual) 77H, Lymphocytes % (Manual) 16L, Monocytes % (Manual) 2, Eosinophils % ( Manual) 5H, Basophils % (Manual) 0, Band Neutrophils 0, Platelet Estimate DecreasedL, Platelet Morphology Normal, Hypochromasia 1+, Anisocytosis 1+, Sodium Level 140, Potassium Level 3.7, Chloride Level 103, Carbon Dioxide Level 29, Anion Gap 9, Blood Urea Nitrogen 44H, Creatinine 6.5H, Estimat Glomerular Filtration Rate , Glucose Level 84, Calcium Level 9.3 Height (Feet): 3 Height (Inches): 0.00 Weight (Pounds): 182 General Appearance: no apparent distress Objective no change Mathtew Rich MD Jun 28, 2019 11:27
--- NOTE | 2019-06-28 12:08 | Surgery Progress Note ---
Surgery Progress Note Subjective Additional Comments wbc scan negative bone scan negative exam stable labs okay pending clearance for d/c and placement Objective Last 24 Hour Vital Signs Date Time Temp Pulse Resp B/P (MAP) Pulse Ox O2 Delivery O2 Flow Rate FiO2 06/28/19 09:00 Room Air 06/28/19 08:16 84 18 96 Room Air 21 06/28/19 08:00 98.9 76 18 136/60 (85) 98 06/28/19 04:00 98.4 77 18 124/95 (105) 95 06/28/19 00:44 98.5 77 18 97/53 (68) 95 06/27/19 21:00 Room Air 06/27/19 20:00 98.9 78 18 100/51 (67) 95 06/27/19 19:52 82 18 97 Room Air 21 06/27/19 16:00 98.1 83 22 95/51 (66) 98 I&O Intake and Output 06/27/19 06/28/19 19:00 07:00 Intake Total 700 ml 320 ml Balance 700 ml 320 ml Free Water 300 ml Tube Feeding 400 ml 320 ml # Voids 3 # Bowel Movements 2 Dressing: saturated Wound: clean Cardiovascular: RSR Respiratory: clear Abdomen: soft, non-tender, present bowel sounds, non-distended Extremities: no tenderness, no cyanosis Laboratory Tests Test 06/28/19 05:45 White Blood Count 6.2 K/UL (4.8-10.8) Red Blood Count 2.66 M/UL (4.20-5.40) L Hemoglobin 7.7 G/DL (12.0-16.0) L Hematocrit 25.0 % (37.0-47.0) L Mean Corpuscular Volume 94 FL (80-99) Mean Corpuscular Hemoglobin 28.8 PG (27.0-31.0) Mean Corpuscular Hemoglobin Concent 30.7 G/DL (32.0-36.0) L Red Cell Distribution Width 15.9 % (11.6-14.8) H Platelet Count 119 K/UL (150-450) L Mean Platelet Volume 6.5 FL (6.5-10.1) Neutrophils (%) (Auto) % (45.0-75.0) Lymphocytes (%) (Auto) % (20.0-45.0) Monocytes (%) (Auto) % (1.0-10.0) Eosinophils (%) (Auto) % (0.0-3.0) Basophils (%) (Auto) % (0.0-2.0) Differential Total Cells Counted 100 Neutrophils % (Manual) 77 % (45-75) H Lymphocytes % (Manual) 16 % (20-45) L Monocytes % (Manual) 2 % (1-10) Eosinophils % (Manual) 5 % (0-3) H Basophils % (Manual) 0 % (0-2) Band Neutrophils 0 % (0-8) Platelet Estimate Decreased L Platelet Morphology Normal Hypochromasia 1+ Anisocytosis 1+ Sodium Level 140 MMOL/L (136-145) Potassium Level 3.7 MMOL/L (3.5-5.1) Chloride Level 103 MMOL/L (98-107) Carbon Dioxide Level 29 MMOL/L (21-32) Anion Gap 9 mmol/L (5-15) Blood Urea Nitrogen 44 mg/dL (7-18) H Creatinine 6.5 MG/DL (0.55-1.30) H Estimat Glomerular Filtration Rate mL/min (>60) Glucose Level 84 MG/DL (74-106) Calcium Level 9.3 MG/DL (8.5-10.1) Plan Problems: (1) Decubitus skin ulcer Assessment & Plan: Pt presented on admission with multiple full thickness pressure injuries R ,L buttocks and L ischium .R sacrum extending down to lower R buttocks erythematous with multiple areas with slough,(+) maceration along edges and periwound. Wound is malodorous. Wound with sloth that easily removed with non excisional debridement during clean up / washing. L sacrum extending into L lower buttocks erythematous ,macerated with scattered areas of yellow slough through out base of wound.Wound is malodorous. Small amt seropurulent exudate noted.Periwound noted to have darker skin tone that is indurated. L ischium darker than is normal skin tone and indurated with scattered open wound exuding small amt serous exudate. Incontinence associated dermatitis noted to perineum and medial aspects of both upper thigh.Skin is erythematous and denuded. Pt presented on admission in grossly unkempt state. Full thickness pressure injury to sacrum extending to R and L ischial regions.(L)18cm x (W)14cm. Sacral pressure injury measures(L)6cm x (W)8cm x (D)0.4cm. Scattered slough at base of wound. Muscle is palpable. Wound is now viable. Full thickness wounds R and L buttocks with scattered slough. Non-blanchable erythema with additional skin erosions periwound. Moisture Intertrigo noted to bilat breasts folds. abd folds and bilat groin areas. Skin is dry dry and flaky to both AKA stumps. Small partial thickness wound noted to L AKA (L)0.4cm x (W)0.4cm. Base of wound is moist and viable. Wound cleaned at bedside and non-excisional debridement performed of [facility]. Underlying tissue fairly healthy. The is now a stage IV sacral decubitus ulcer in the central portion right above the coccyx with palpable musculature. Wound is deteriorated since last admission. Tx.Plan: Cleanse wound Sacrum with saline. Apply Therahoney to Sacrum,R and L buttocks. Apply Moisture Barrier Paste periwound. Cover with Optifoam drsg Daily and prn. Apply Moisture Barrier Paste to folds of both breasts,abd folds ,and bilat groin areas with each incontinence care. Apply Cavilon Skin Barrier to L AKA daily. Reposition at least every 2hours or as tolerated. Off-load heels with pillow. APM/TIAGO mattress overlay. (2) Sepsis Assessment & Plan: 84-year-old female with hypotension, tachycardia, leukocytosis, abnormal labs. Currently in intensive care unit line removed micro noted and negative growh will monitor On IV antibiotics as per infectious disease Trend labs We will follow with recommendations (3) GI bleed Assessment & Plan: Noted to have hematemesis while in nursing facility. No acute episode of hematemesis at this time stool is noted to be fairly dark Appreciate GI input No further episodes. Has been otherwise stable. On PPI. (4) G tube feedings Assessment & Plan: DAILY ESTIMATED NEEDS: Needs based on ESRD/HD, wound/ 55kg adj for BL AKA 30-35 kcals/kg 7529-8540 total kcals 1.25-1.8 g protein/kg 69-99 g total protein 20-25 mL/kg 7094-9381 total fluid mLs NUTRITION DIAGNOSIS: * Increased kcal/pro intake needs R/T renal dysfunction, wound healing as evidenced by ESRD dx, on HD. admitted w/ advanced wounds including full thickness wounds x3, refer to WC maria elena (CURRENT TF: Glucerna 1.2 @55) ENTERAL NUTRITION RECOMMENDATIONS: Nepro @ 40ml/hr x 24 hrs + Prosource x1 daily to provide 960ml, 1728kcal, 78g + 11g pro, 698ml free water * WITH HEMODYNAMIC STABILITY, resume TF * Initiate Nepro @ 20ml/hr x 6 hrs, advance 10ml q 4-6 hrs as tolerated to goal. * HOB over 30 degrees/ water flush per MD ADDITIONAL RECOMMENDATIONS: * Calibrated dry wt post HD * Wound healing: add Nephrovite 1 tab QD - Add MAX BID - Add ZnSO4 220mg daily x10 days * Trophic feeds when on pressor support * Monitor Willian Avila Jun 28, 2019 12:08
--- NOTE | 2019-06-28 12:44 | Cardiac Electrophysiology PN ---
Assessment/Plan Assessment/Plan 1. S/P septic shock. Resolved on IV antibiotic. Her EKG showed no acute ischemic changes. EF 60%. 2. End-stage renal disease, on hemodialysis. 3. Gastrointestinal bleed and anemia. EGD by Dr Perales showed Gastritis and Duodenal ulceration 4. Decubitus ulcer. 5. Hypertension 6. Diabetes. 7. Dysphagia, status post G-tube. 8. Fever 101. FU by Dr Castillo. YVES RN Subjective Subjective Nonverbal. RN at bedside.Another HD pending today Objective Last 24 Hour Vital Signs Date Time Temp Pulse Resp B/P (MAP) Pulse Ox O2 Delivery O2 Flow Rate FiO2 06/28/19 12:00 97.9 76 19 111/60 (77) 98 06/28/19 09:00 Room Air 06/28/19 08:16 84 18 96 Room Air 21 06/28/19 08:00 98.9 76 18 136/60 (85) 98 06/28/19 04:00 98.4 77 18 124/95 (105) 95 06/28/19 00:44 98.5 77 18 97/53 (68) 95 06/27/19 21:00 Room Air 06/27/19 20:00 98.9 78 18 100/51 (67) 95 06/27/19 19:52 82 18 97 Room Air 21 06/27/19 16:00 98.1 83 22 95/51 (66) 98 Intake and Output 06/27/19 06/28/19 19:00 07:00 Intake Total 700 ml 320 ml Balance 700 ml 320 ml Free Water 300 ml Tube Feeding 400 ml 320 ml # Voids 3 # Bowel Movements 2 Laboratory Tests Test 06/28/19 05:45 White Blood Count 6.2 K/UL (4.8-10.8) Red Blood Count 2.66 M/UL (4.20-5.40) L Hemoglobin 7.7 G/DL (12.0-16.0) L Hematocrit 25.0 % (37.0-47.0) L Mean Corpuscular Volume 94 FL (80-99) Mean Corpuscular Hemoglobin 28.8 PG (27.0-31.0) Mean Corpuscular Hemoglobin Concent 30.7 G/DL (32.0-36.0) L Red Cell Distribution Width 15.9 % (11.6-14.8) H Platelet Count 119 K/UL (150-450) L Mean Platelet Volume 6.5 FL (6.5-10.1) Neutrophils (%) (Auto) % (45.0-75.0) Lymphocytes (%) (Auto) % (20.0-45.0) Monocytes (%) (Auto) % (1.0-10.0) Eosinophils (%) (Auto) % (0.0-3.0) Basophils (%) (Auto) % (0.0-2.0) Differential Total Cells Counted 100 Neutrophils % (Manual) 77 % (45-75) H Lymphocytes % (Manual) 16 % (20-45) L Monocytes % (Manual) 2 % (1-10) Eosinophils % (Manual) 5 % (0-3) H Basophils % (Manual) 0 % (0-2) Band Neutrophils 0 % (0-8) Platelet Estimate Decreased L Platelet Morphology Normal Hypochromasia 1+ Anisocytosis 1+ Sodium Level 140 MMOL/L (136-145) Potassium Level 3.7 MMOL/L (3.5-5.1) Chloride Level 103 MMOL/L (98-107) Carbon Dioxide Level 29 MMOL/L (21-32) Anion Gap 9 mmol/L (5-15) Blood Urea Nitrogen 44 mg/dL (7-18) H Creatinine 6.5 MG/DL (0.55-1.30) H Estimat Glomerular Filtration Rate mL/min (>60) Glucose Level 84 MG/DL (74-106) Calcium Level 9.3 MG/DL (8.5-10.1) Objective HEAD AND NECK: Shows no JVD. LUNGS: Coarse rhonchi. CARDIOVASCULAR: Regular S1 and S2 with no gallop. ABDOMEN: Soft. G-tube. EXTREMITIES: Bilateral above-knee amputation. She has a triple-lumen in the right femoral area and dialysis access in the right arm. Will Osborne MD Jun 28, 2019 12:44
--- NOTE | 2019-06-28 14:28 | Infectious Diseases Prog Note ---
Assessment/Plan Problems: (1) Fever Assessment & Plan: while on zyvox and ertapenem, S/P femoral line removal, now improving after adding fluconazole empirically, suspect fungal etiology . bone scan of the pelvis area ruled out osteomyelitis, WBC indium scan was negative for occult focus of infection . continue zyvox, ertapenem and fluconazole for two weeks course of treatment . await fungal serology to rule out fungal pneumonia with lobulated lymph nodes on CT chest . (2) Sepsis Assessment & Plan: with shock due to staphylococcus epidermidis and fever, source most likely sacral/buttock pressure wounds with no evidence of underlying osteomyelitis or abscess . continue zyvox orally and ertapenem IM for 2 weeks , since no IV access . echo transthoracic showed no vegetations . repeated blood culture x 4 is negative so far which confirm clearance. will need two weeks of antibiotics therapy since no evidence of pelvic or sacrum osteomyelitis . EOT 07/01/19 (3) Decubitus skin ulcer Assessment & Plan: with maceration and necrosis , possibly infected, had surgical eval , already on wide spectrum antibiotics , keep off loading with local wound care as needed as per hospital protocol (4) GI bleed Assessment & Plan: monitor H/H , transfuse as needed, GI eval for source control (5) ESRD (end stage renal disease) on dialysis Assessment & Plan: continue HD as per renal , antibiotics renally dosed as per pharmacy (6) Anemia Assessment & Plan: due to the above , transfuse blood as needed, GI eval for source control (7) Cough with hemoptysis Assessment & Plan: resolved, 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 sputum for AFB smear x 3 is negative so far , and PCR MTB is negative , with negative T spot. off air born isolation . doubt TB . patient was cleared by [facility] today, I had detailed discussion with Dr Garrido in TB control office . (8) Mass of left lung Assessment & Plan: infectious VS malignant , await fungal serology , will need CT chest with contrast for confirmation . may need bronch or biopsy for definitive diagnosis . D/W PULMONARY Subjective ROS Limited/Unobtainable: Yes Allergies: Coded Allergies: GABAPENTIN (Unverified Allergy, Unknown, 06/14/19) Subjective she was resting in bed , quiet, nonverbal, awake, no cough or hemoptysis today , no fever today. Objective Vital Signs Last 24 Hour Vital Signs Date Time Temp Pulse Resp B/P (MAP) Pulse Ox O2 Delivery O2 Flow Rate FiO2 06/28/19 12:00 97.9 76 19 111/60 (77) 98 06/28/19 09:00 Room Air 06/28/19 08:16 84 18 96 Room Air 21 06/28/19 08:00 98.9 76 18 136/60 (85) 98 06/28/19 04:00 98.4 77 18 124/95 (105) 95 06/28/19 00:44 98.5 77 18 97/53 (68) 95 06/27/19 21:00 Room Air 06/27/19 20:00 98.9 78 18 100/51 (67) 95 06/27/19 19:52 82 18 97 Room Air 21 06/27/19 16:00 98.1 83 22 95/51 (66) 98 Height (Feet): 3 Height (Inches): 0.00 Weight (Pounds): 182 General Appearance: WD/WN, no acute distress HEENT: normocephalic, atraumatic, anicteric, mucous membranes moist Respiratory/Chest: chest wall non-tender, lungs clear, normal breath sounds, no respiratory distress, no accessory muscle use Cardiovascular: normal peripheral pulses, normal rate, regular rhythm, no gallop/murmur, no JVD Abdomen: normal bowel sounds, soft, non tender, no organomegaly, non distended , no mass, no scars Extremities: no cyanosis, no clubbing Skin: no rash, no lesions Neurologic/Psychiatric: alert, unresponsiveness Lymphatic: no neck adenopathy, no groin adenopathy Musculoskeletal: normal muscle bulk, no effusion Laboratory Tests Test 06/28/19 05:45 White Blood Count 6.2 K/UL (4.8-10.8) Red Blood Count 2.66 M/UL (4.20-5.40) L Hemoglobin 7.7 G/DL (12.0-16.0) L Hematocrit 25.0 % (37.0-47.0) L Mean Corpuscular Volume 94 FL (80-99) Mean Corpuscular Hemoglobin 28.8 PG (27.0-31.0) Mean Corpuscular Hemoglobin Concent 30.7 G/DL (32.0-36.0) L Red Cell Distribution Width 15.9 % (11.6-14.8) H Platelet Count 119 K/UL (150-450) L Mean Platelet Volume 6.5 FL (6.5-10.1) Neutrophils (%) (Auto) % (45.0-75.0) Lymphocytes (%) (Auto) % (20.0-45.0) Monocytes (%) (Auto) % (1.0-10.0) Eosinophils (%) (Auto) % (0.0-3.0) Basophils (%) (Auto) % (0.0-2.0) Differential Total Cells Counted 100 Neutrophils % (Manual) 77 % (45-75) H Lymphocytes % (Manual) 16 % (20-45) L Monocytes % (Manual) 2 % (1-10) Eosinophils % (Manual) 5 % (0-3) H Basophils % (Manual) 0 % (0-2) Band Neutrophils 0 % (0-8) Platelet Estimate Decreased L Platelet Morphology Normal Hypochromasia 1+ Anisocytosis 1+ Sodium Level 140 MMOL/L (136-145) Potassium Level 3.7 MMOL/L (3.5-5.1) Chloride Level 103 MMOL/L (98-107) Carbon Dioxide Level 29 MMOL/L (21-32) Anion Gap 9 mmol/L (5-15) Blood Urea Nitrogen 44 mg/dL (7-18) H Creatinine 6.5 MG/DL (0.55-1.30) H Estimat Glomerular Filtration Rate mL/min (>60) Glucose Level 84 MG/DL (74-106) Calcium Level 9.3 MG/DL (8.5-10.1) Current Medications Medications (Trade) Dose Ordered Sig/Selene Route PRN Reason Start Time Stop Time Status Last Admin Dose Admin Acetaminophen (Tylenol) 650 mg Q4H PRN GT Fever 06/20/19 13:45 07/14/19 13:44 06/21/19 16:09 Dextrose (Dextrose 50%) 25 ml Q30M PRN IV Hypoglycemia 06/20/19 13:45 07/18/19 20:12 Dextrose (Dextrose 50%) 50 ml Q30M PRN IV hypoglycemia 06/20/19 13:45 07/18/19 20:14 Epoetin Alli (Epoetin Alli(ESRD on dialysis)) 6,000 unit WED-WED-WED SUBQ 06/26/19 21:00 07/26/19 20:59 06/26/19 20:54 Ertapenem (INVanz) 0.5 gm Q24H IM 06/24/19 18:00 07/01/19 23:00 06/27/19 18:15 Fluconazole (Diflucan) 200 mg Q24H GT 06/21/19 21:00 07/01/19 23:00 06/27/19 20:39 Hydralazine HCl (Apresoline) 25 mg Q6H PRN GT For High Blood Pressure 06/20/19 13:45 07/14/19 13:44 Insulin Aspart (NovoLOG) BEFORE MEALS AND HS SUBQ 06/20/19 16:30 07/14/19 20:59 06/21/19 21:39 Lansoprazole (Prevacid) 30 mg BID GT 06/27/19 18:00 07/26/19 17:59 06/28/19 09:17 Linezolid (Zyvox) 600 mg EVERY 12 HOURS GT 06/20/19 21:00 07/01/19 23:00 06/28/19 09:17 Midodrine (Pro-Amatine) 10 mg THREE TIMES A DAY GT 06/21/19 13:00 07/21/19 12:59 06/28/19 13:25 Ondansetron HCl (Zofran) 4 mg Q6H PRN IVP Nausea & Vomiting 06/20/19 13:45 07/14/19 13:44 Vitamin B Complex/ Vit C/Folic Acid (Nephrovite) 1 tab DAILY ORAL 06/24/19 20:00 07/24/19 19:59 06/28/19 09:17 Zinc Sulfate (Zinc Sulfate) 220 mg DAILY GT 06/21/19 09:00 06/30/19 08:59 06/28/19 09:17 Morteza Castillo M.D. Jun 28, 2019 14:28
[2019-06-28] MEDS: Ertapenem (INVanz) 1gm Inj IM SCH (18:00)
--- NOTE | 2019-06-28 20:01 | Pulmonology Progress Note ---
Assessment/Plan Problems: (1) Septic shock (2) GI bleed (3) Anemia (4) Decubitus skin ulcer (5) ESRD (end stage renal disease) on dialysis (6) DM (diabetes mellitus) (7) G tube feedings (8) HTN (hypertension) Assessment/Plan dc was canceled b/o lack of clearance from [facility] hear rate, bp stable h/h stable EGD done, tolerating feeding check electrolytes med/surg Ct chest reviewed, doubt any lobulated mass. No need to get a contrast CT, considering her underlying multiplicity of comorbidities. Subjective Allergies: Coded Allergies: GABAPENTIN (Unverified Allergy, Unknown, 06/14/19) Objective Last 24 Hour Vital Signs Date Time Temp Pulse Resp B/P (MAP) Pulse Ox O2 Delivery O2 Flow Rate FiO2 06/28/19 16:00 98.9 78 19 112/60 (77) 98 06/28/19 12:00 97.9 76 19 111/60 (77) 98 06/28/19 09:00 Room Air 06/28/19 08:16 84 18 96 Room Air 21 06/28/19 08:00 98.9 76 18 136/60 (85) 98 06/28/19 04:00 98.4 77 18 124/95 (105) 95 06/28/19 00:44 98.5 77 18 97/53 (68) 95 06/27/19 21:00 Room Air Intake and Output 06/27/19 06/28/19 18:59 06:59 Intake Total 600 ml 460 ml Balance 600 ml 460 ml Free Water 200 ml 100 ml Tube Feeding 400 ml 360 ml # Voids 3 # Bowel Movements 2 Laboratory Tests 06/28/19 05:45: White Blood Count 6.2, Red Blood Count 2.66L, Hemoglobin 7.7L, Hematocrit 25.0L , Mean Corpuscular Volume 94, Mean Corpuscular Hemoglobin 28.8, Mean Corpuscular Hemoglobin Concent 30.7L, Red Cell Distribution Width 15.9H, Platelet Count 119L, Mean Platelet Volume 6.5, Neutrophils (%) (Auto) , Lymphocytes (%) (Auto) , Monocytes (%) (Auto) , Eosinophils (%) (Auto) , Basophils (%) (Auto) , Differential Total Cells Counted 100, Neutrophils % ( Manual) 77H, Lymphocytes % (Manual) 16L, Monocytes % (Manual) 2, Eosinophils % ( Manual) 5H, Basophils % (Manual) 0, Band Neutrophils 0, Platelet Estimate DecreasedL, Platelet Morphology Normal, Hypochromasia 1+, Anisocytosis 1+, Sodium Level 140, Potassium Level 3.7, Chloride Level 103, Carbon Dioxide Level 29, Anion Gap 9, Blood Urea Nitrogen 44H, Creatinine 6.5H, Estimat Glomerular Filtration Rate , Glucose Level 84, Calcium Level 9.3 Current Medications Medications (Trade) Dose Ordered Sig/Selene Route PRN Reason Start Time Stop Time Status Last Admin Dose Admin Acetaminophen (Tylenol) 650 mg Q4H PRN GT Fever 06/20/19 13:45 07/14/19 13:44 06/21/19 16:09 Dextrose (Dextrose 50%) 25 ml Q30M PRN IV Hypoglycemia 06/20/19 13:45 07/18/19 20:12 Dextrose (Dextrose 50%) 50 ml Q30M PRN IV hypoglycemia 06/20/19 13:45 07/18/19 20:14 Epoetin Alli (Epoetin Alli(ESRD on dialysis)) 6,000 unit WED-WED-WED SUBQ 06/26/19 21:00 07/26/19 20:59 06/26/19 20:54 Ertapenem (INVanz) 0.5 gm Q24H IM 06/24/19 18:00 07/01/19 23:00 06/27/19 18:15 Fluconazole (Diflucan) 200 mg Q24H GT 06/21/19 21:00 07/01/19 23:00 06/27/19 20:39 Hydralazine HCl (Apresoline) 25 mg Q6H PRN GT For High Blood Pressure 06/20/19 13:45 07/14/19 13:44 Insulin Aspart (NovoLOG) BEFORE MEALS AND HS SUBQ 06/20/19 16:30 07/14/19 20:59 06/21/19 21:39 Lansoprazole (Prevacid) 30 mg BID GT 06/27/19 18:00 07/26/19 17:59 06/28/19 09:17 Linezolid (Zyvox) 600 mg EVERY 12 HOURS GT 06/20/19 21:00 07/01/19 23:00 06/28/19 09:17 Midodrine (Pro-Amatine) 10 mg THREE TIMES A DAY GT 06/21/19 13:00 07/21/19 12:59 06/28/19 18:35 Ondansetron HCl (Zofran) 4 mg Q6H PRN IVP Nausea & Vomiting 06/20/19 13:45 07/14/19 13:44 Vitamin B Complex/ Vit C/Folic Acid (Nephrovite) 1 tab DAILY ORAL 06/24/19 20:00 07/24/19 19:59 06/28/19 09:17 Zinc Sulfate (Zinc Sulfate) 220 mg DAILY GT 06/21/19 09:00 06/30/19 08:59 06/28/19 09:17 Rosemary Lui MD Jun 28, 2019 20:01
[2019-06-28] MEDS: Fluconazole 100mg tab GT SCH (21:00)
[2019-06-28] MEDS: Epoetin Alfa-EPBX(ESRD on dialysis)3000 units/ml vial SUBQ SCH (21:00)
[2019-06-29 00:32] VITALS: BP 118/66
[2019-06-29 04:00] VITALS: BP 114/78
[2019-06-29] MEDS: NovoLOG Insulin Flexpen SUBQ SCH ×2 (06:30→11:30)
[2019-06-29] MEDS ORDERED: ZYVOX600 MG GT (07:54)
[2019-06-29] MEDS ORDERED: FLUCONAZOLE100 MG GT (07:54)
[2019-06-29 08:00] VITALS: BP 94/55
--- NOTE | 2019-06-29 08:51 | General Progress Note ---
Assessment/Plan Status: stable Assessment/Plan: 1. Fever - resolved. responding to antifungal txt. cont fluconazole and Abx for total of 2 wks. bone scan and WBC scan negative. Health depart clearanced her for discharge. D/C to [facility] Today. 2. Septic Shock - improved. off pressor and doing well. Cont Abx for now. ID following. In Med surg. 3. ESRD on HD - on HD 3x/wk. 4. Sacral pressure ulcer - surgery is following. 5. Upper GI bleed 2nd to duodenal ulcer - H/H currently stable. s/p One unit of PRBC. EGD showed Gastritis and nonbleeding duodenal ulcer. cont prevacid 30 mg bid. 6. Sepsis - cont IV Abx. ID following the patient. blood cultures showed staph Epidermatous. cont abx and antifungal for total of 2 wks. 7. HLD - cont home meds. 8. Gout - cont Allopurinol 9. H/O PVD 10. H/O DVT 11. DM II - cont SSI. 12. HTN - off meds and blood pressure is fine. 13. 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 Cleared by [facility] clearance for discharge. 14. Mass on left lung - most likely 2nd to fungal infection - fungal serology pending. fever improved as well. Pulmonary agrees that it is less likely malignancy and no CT with contrast needed due to multiple comorbidities. Subjective Date patient seen: Jun 29, 2019 Time patient seen: 08:30 ROS Limited/Unobtainable: Yes Constitutional: Reports: no symptoms Cardiovascular: Reports: no symptoms Respiratory: Reports: no symptoms Gastrointestinal/Abdominal: Reports: no symptoms Allergies: Coded Allergies: GABAPENTIN (Unverified Allergy, Unknown, 06/14/19) Subjective Patient is in Med Surg. Patient has bed at [facility] for today. afebrile. she is ESRD on HD. Objective Last 24 Hour Vital Signs Date Time Temp Pulse Resp B/P (MAP) Pulse Ox O2 Delivery O2 Flow Rate FiO2 06/29/19 08:00 98.1 79 18 94/55 (68) 98 06/29/19 07:20 81 18 97 Room Air 21 06/29/19 04:00 98.1 80 17 114/78 (90) 98 06/29/19 00:32 97.6 84 17 118/66 (83) 98 06/28/19 23:37 97.6 84 17 98/45 (62) 98 06/28/19 20:28 Room Air 06/28/19 20:00 98.1 85 16 107/73 (84) 99 06/28/19 19:53 88 18 97 Room Air 21 06/28/19 16:00 98.9 78 19 112/60 (77) 98 06/28/19 12:00 97.9 76 19 111/60 (77) 98 06/28/19 09:00 Room Air Intake and Output 06/28/19 06/29/19 19:00 07:00 Intake Total 180 ml 640 ml Balance 180 ml 640 ml Free Water 100 ml 200 ml Tube Feeding 80 ml 440 ml # Voids 3 Height (Feet): 3 Height (Inches): 0.00 Weight (Pounds): 177 General Appearance: no apparent distress, alert EENT: normal ENT inspection Neck: non-tender, supple Cardiovascular: normal rate, regular rhythm Respiratory/Chest: chest wall non-tender, lungs clear Abdomen: non tender, soft Neurologic: responsive Skin: warm/dry Pam Alcantar MD Jun 29, 2019 08:51
[2019-06-29] MEDS ORDERED: INVANZ1 G1 IM (08:54)
[2019-06-29] MEDS: Nephrovite tab (Rena-Vite) ORAL SCH (09:12)
[2019-06-29] MEDS: Zinc Sulfate 220mg cap GT SCH (09:12)
[2019-06-29] MEDS: Midodrine 10mg tab GT SCH (09:12)
[2019-06-29] MEDS ORDERED: Midodrine 10mg tab GT SCH (09:30)
--- NOTE | 2019-06-29 10:11 | GI Progress Note ---
Assessment/Plan Problems: (1) GI bleed ICD Codes: K92.2 - Gastrointestinal hemorrhage, unspecified SNOMED: 01938729 (2) Anemia due to chronic kidney disease ICD Codes: N18.9 - Chronic kidney disease, unspecified; D63.1 - Anemia in chronic kidney disease SNOMED: 835295930 (3) Septic shock ICD Codes: A41.9 - Sepsis, unspecified organism; R65.21 - Severe sepsis with septic shock SNOMED: 89515287 (4) G tube feedings ICD Codes: Z93.1 - Gastrostomy status SNOMED: 349847188, 645036774, 953717692 Status: stable, unchanged Status Narrative Discussed with Dr. Perales. Assessment/Plan SUMMARY OF FINDINGS: 1. Medium-sized hiatal hernia. 2. Gastritis, status post biopsy. 3. Duodenal ulceration without any evidence of active bleeding or any visible vessel or adherent clot. RECOMMENDATIONS: cont Gtube feeding. Prevacid per G-tube 30 mg daily. Monitor hemoglobin and hematocrit, transfuse as needed. Monitor labs. bowel regimen dc planning per primary team The patient was seen and examined at bedside and all new and available data was reviewed in the patients chart. I agree with the above findings, impression and plan. (Patient seen earlier today. Signature stamp does not reflect patient encounter time.). - Ezequiel Perales MD Subjective Subjective limited Objective Last 24 Hour Vital Signs Date Time Temp Pulse Resp B/P (MAP) Pulse Ox O2 Delivery O2 Flow Rate FiO2 06/29/19 09:44 Room Air 06/29/19 08:00 98.1 79 18 94/55 (68) 98 06/29/19 07:20 81 18 97 Room Air 06/29/19 04:00 98.1 80 17 114/78 (90) 98 06/29/19 00:32 97.6 84 17 118/66 (83) 98 06/28/19 23:37 97.6 84 17 98/45 (62) 98 06/28/19 20:28 Room Air 06/28/19 20:00 98.1 85 16 107/73 (84) 99 06/28/19 19:53 88 18 97 Room Air 21 06/28/19 16:00 98.9 78 19 112/60 (77) 98 06/28/19 12:00 97.9 76 19 111/60 (77) 98 Intake and Output 06/28/19 06/29/19 19:00 07:00 Intake Total 180 ml 640 ml Balance 180 ml 640 ml Free Water 100 ml 200 ml Tube Feeding 80 ml 440 ml # Voids 3 Height (Feet): 3 Height (Inches): 0.00 Weight (Pounds): 177 General Appearance: no apparent distress Cardiovascular: normal rate Respiratory/Chest: normal breath sounds, no respiratory distress Abdominal Exam: normal bowel sounds, non tender, soft Extremities: non-tender Lidia Recio [employer] Jun 29, 2019 10:11
[2019-06-29] MEDS ORDERED: ZYVOX600 MG ORAL (10:52)
[2019-06-29] MEDS ORDERED: FLUCONAZOLE100 MG ORAL (10:53)
[2019-06-29] MEDS ORDERED: Ertapenem (INVanz) 1gm Inj IM SCH (11:00)
--- NOTE | 2019-06-29 11:34 | Cardiac Electrophysiology PN ---
Assessment/Plan Assessment/Plan 1. S/P septic shock. Resolved on IV antibiotic. EKG no acute ischemic changes. EF 60%. 2. End-stage renal disease, on hemodialysis. 3. Gastrointestinal bleed and anemia. EGD by Dr Perales showed Gastritis and Duodenal ulceration 4. Decubitus ulcer. 5. Hypertension 6. Diabetes. 7. Dysphagia, status post G-tube. 8. Fever 101. FU by Dr Castillo. YVES RN DC to [facility] today Subjective Subjective Nonverbal. RN at bedside.DC pending today Objective Last 24 Hour Vital Signs Date Time Temp Pulse Resp B/P (MAP) Pulse Ox O2 Delivery O2 Flow Rate FiO2 06/29/19 09:44 Room Air 06/29/19 08:00 98.1 79 18 94/55 (68) 98 06/29/19 07:20 81 18 97 Room Air 21 06/29/19 04:00 98.1 80 17 114/78 (90) 98 06/29/19 00:32 97.6 84 17 118/66 (83) 98 06/28/19 23:37 97.6 84 17 98/45 (62) 98 06/28/19 20:28 Room Air 06/28/19 20:00 98.1 85 16 107/73 (84) 99 06/28/19 19:53 88 18 97 Room Air 21 06/28/19 16:00 98.9 78 19 112/60 (77) 98 06/28/19 12:00 97.9 76 19 111/60 (77) 98 Intake and Output 06/28/19 06/29/19 19:00 07:00 Intake Total 180 ml 680 ml Balance 180 ml 680 ml Free Water 100 ml 200 ml Tube Feeding 80 ml 480 ml # Voids 3 Objective HEAD AND NECK: Shows no JVD. LUNGS: Coarse rhonchi. CARDIOVASCULAR: Regular S1 and S2 with no gallop. ABDOMEN: Soft. G-tube. EXTREMITIES: Bilateral above-knee amputation. She has a triple-lumen in the right femoral area and dialysis access in the right arm. Will Osborne MD Jun 29, 2019 11:34
--- NOTE | 2019-06-29 13:06 | Nephrology Progress Note ---
Assessment/Plan Problem List: (1) ESRD (end stage renal disease) on dialysis (2) Septic shock (3) GI bleed (4) Decubitus skin ulcer (5) G tube feedings (6) DM (diabetes mellitus) (7) HTN (hypertension) Assessment ESRD Hematemesis Decubs Anemia Leukocytosis fever / Sepsis / shock h/o Pancreatitis h/o DM & HTN Plan HD next 06/30 due discharge s/p transfusion Keep BP above 100 syst, on Midodrine per consultants Subjective ROS Limited/Unobtainable: Yes Interval Events/Complaints seen at 9.30 am Objective Objective Last 24 Hour Vital Signs Date Time Temp Pulse Resp B/P (MAP) Pulse Ox O2 Delivery O2 Flow Rate FiO2 06/29/19 09:44 Room Air 06/29/19 08:00 98.1 79 18 94/55 (68) 98 06/29/19 07:20 81 18 97 Room Air 21 06/29/19 04:00 98.1 80 17 114/78 (90) 98 06/29/19 00:32 97.6 84 17 118/66 (83) 98 06/28/19 23:37 97.6 84 17 98/45 (62) 98 06/28/19 20:28 Room Air 06/28/19 20:00 98.1 85 16 107/73 (84) 99 06/28/19 19:53 88 18 97 Room Air 21 06/28/19 16:00 98.9 78 19 112/60 (77) 98 Intake and Output 06/28/19 06/29/19 19:00 07:00 Intake Total 180 ml 680 ml Balance 180 ml 680 ml Free Water 100 ml 200 ml Tube Feeding 80 ml 480 ml # Voids 3 Height (Feet): 3 Height (Inches): 0.00 Weight (Pounds): 177 General Appearance: no apparent distress, lethargic Objective no change Matthew Rich MD Jun 29, 2019 13:06
--- NOTE | 2019-06-30 15:54 | Discharge Summary ---
Discharge Summary Discharge Summary _ DATE OF ADMISSION: 06/14/2019 DATE OF DISCHARGE: 06/29/2019 DISCHARGED BY: REASON FOR ADMISSION: 84 years old female with past medical history of hypertension, diabetes mellitus , end-stage renal disease, CVA, bilateral AKA. GERD, presented to to emergency department for hematemesis. Patient was noted to have increased bloody secretion from gastrostomy tube. Patient apparently had difficulty with respiration as well. Upon evaluation patient was hypoxic and required facial mask. Laboratory work-up revealed stable INR. Significant leukocytosis WBC 24.2, hemoglobin 10, hematocrit 32. Platelet count 385. INR 1.0. BUN 117, creatinine 10.3. Glucose 152. EKG revealed sinus tachycardia with occasional premature ventricular complexes , inferior infarct age undetermined. Chest x-ray demonstrated no acute disease cardiopulmonary pathology. In emergency department patient started on IV Protonix, placed on BiPAP due to respiratory difficulty, and subsequently admitted for further management. CONSULTANTS: driller helper Dr. Escudero pulmonary Dr. Lui ID specialist Dr. Castillo GI specialist Dr. Perales pageant director Dr. Rich [facility]: Patient initially admitted to ICU. Hemodynamic status was closely monitored. Patient noted to be hypotensive and started on pressors. hemodynamic status was closely monitored with goal to keep mean arterial blood pressure above 65. Patient also started on empiric antibiotics. Patient eventually was able to wean off pressors. Supplemental oxygen titrated to keep pulse oximetry above 92%. Handheld nebulizing therapy with bronchodilator provided as needed. Venous duplex bilateral lower extremity was technically difficult study due to bilateral above-knee amputation . There was no evidence of thrombus within the common femoral to mid superficial femoral veins. The great saphenous veins were within normal limits. Patient was followed up with chest x-ray . Echocardiogram revealed preserved ejection fraction of 60% with mild left ventricular hypertrophy. No evidence of wall motion abnormality. Right ventricular systolic pressure of 38 , consistent with mild pulmonary hypertension. Moderate mitral regurgitation. GI specialist followed. When hemodynamic status stabilized, patient undergone upper endoscopy with biopsy , which revealed medium-sized hiatal hernia, gastritis , status post biopsy, duodenal ulceration without any evidence of active bleeding or any visible vessels or adherent clot. Tube feeding was resumed. Patient started on GI prophylaxis. Bowel regimen instituted. Hemoglobin and hematocrit were closely monitored with goal to keep hemoglobin above 7. Hemoglobin and hematocrit remained at the baseline . Patient undergone transfusion of 1 unit of packed red blood cells . Patient was on Epogen. Pathology of the stomach antrum revealed benign gastric mucosa with mild to moderate chronic gastritis, no evidence of Helicobacter infection , no evidence for intestinal metaplasia ,dysplasia, or malignancy . Strict aspiration precautions were maintained. ID specialist followed. Blood culture initially revealed Staph epidermidis. Acid-fast bacilli smear x3 were negative. Stool for C. difficile was negative. Repeated blood culture on 06/17 and 06/18 were negative. Femoral line was discontinued. Catheter tip culture was negative . Last blood culture were repeated on ; also negative. Leukocytosis and intermittent fevers resolved. Patient was on antibiotic , as per ID specialist recommendation. 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 MTB by PCR negative. T spot negative. Airborne isolation discontinued. Infectious disease specialist doubted any tuberculosis . Patient was cleared by Department of Health. Chest x-ray also demonstrated calcified granulomatous node in the left hilum. Patient subsequently undergone CT of the chest revealed evidence of prior tuberculosis, including calcified granulomatous left hilar lymph node and right- sided pleural calcifications. No pulmonary parenchymal findings to suggest active tuberculosis. However, apparent confluent isolated prevascular space lymphadenopathy versus lobulated mass. May be necrotic. Significance of this was uncertain in the absence of other significant thoracic findings. Radiologist recommended better assessment with contrast CT. Bilateral basilar pulmonary atelectatic changes and possible scarring Tiny scattered right lung bullae Equivocal trace left pleural effusion Borderline cardiomegaly Multiply vertebral body compression fractures, age undetermined. Cholelithiasis. Bone scan was done due to multiple chronic wounds of the buttocks and sacrum and revealed no definite abnormal osseous activity to suggest osteomyelitis. Indium scan revealed normal uptake throughout the body. Leukocytosis and intermittent fevers resolved. HIV test was nonreactive. Hepatitis B surface antigen negative Patient will need to continue antibiotic at the facility to complete the course. Hemodynamic status was closely monitored. Patient was off antihypertensive medications. Midodrine continued. Blood sugar was managed with sliding scale of insulin as needed. Hemoglobin A1c 5.2 at goal. Hemodialysis provided as per pageant director with close monitoring of volumes, renal parameters, and electrolytes Wound care provided as per surgeon recommendation . Continue wound care at the facility. Pain management was addressed Supportive care provided Per disease education specialist, left lung mass was less likely malignancy, and no CT with contrast was needed due to multiple comorbidities. Left lung mass versus confluent isolated prevascular space lymphadenopathy was most likely was due to sepsis and fungal infection. Fungal serology still pending at the time of this dictation. Fevers resolved, no leukocytosis. Patient clinically stabilized and was ready for discharge back to the [facility] facility for continuation of care. FINAL DIAGNOSES: Septic shock -resolved Sepsis with Staph bacteremia GI bleeding Anemia of chronic disease End-stage renal disease, on hemodialysis History of prior TB Left lung mass Multiply compress compression fractures, likely old Moderate mitral regurgitation Aortic stenosis Mild pulmonary hypertension Sacral decubitus ulcer , present on admission Dysphagia, feeding by G-tube History of hypertension Diabetes mellitus History of CVA PVD with bilateral AKA Hyperlipidemia Gout DISCHARGE MEDICATIONS: See Medication Reconciliation list. DISCHARGE INSTRUCTIONS: Patient was discharged to the [facility] facility. Follow up with medical doctor at the facility. Mai De NP Jun 30, 2019 15:54
== END 2019-06-29 12:00 | DRG 871 ==
LOC: EDBD 13:33 → EDBEDREQ 14:07 → EMR 14:25 → ICU 14:38 → EDBEDREQ 14:54 → ICU 16:09 → 2E 06-19 12:49 → 4E 06-20 13:17 → SDSOVERFLO 06-21 13:15 → 4E 06-21 13:16
PROC: 5A1D70Z Performance of Urinary Filtration, Intermittent, Less than 6 Hours Per Day (ICD-10-PCS; principal; 2019-06-14)
PROC: 06HM33Z Insertion of Infusion Device into Right Femoral Vein, Percutaneous Approach (ICD-10-PCS; 2019-06-15)
PROC: 0JD73ZZ Extraction of Back Subcutaneous Tissue and Fascia, Percutaneous Approach (ICD-10-PCS; 2019-06-16)
PROC: 0DB78ZX Excision of Stomach, Pylorus, Via Natural or Artificial Opening Endoscopic, Diagnostic (ICD-10-PCS; 2019-06-19)
PROC: 06PYX3Z Removal of Infusion Device from Lower Vein, External Approach (ICD-10-PCS; 2019-06-20)
DX: A41.9 Sepsis, unspecified organism (principal); L89.154 Pressure ulcer of sacral region, stage 4; R65.21 Severe sepsis with septic shock; N18.6 End stage renal disease; K26.4 Chronic or unspecified duodenal ulcer with hemorrhage; I12.0 Hypertensive chronic kidney disease with stage 5 chronic kidney disease or end stage renal disease; R40.3 Persistent vegetative state; R04.2 Hemoptysis; B49 Unspecified mycosis; Z99.2 Dependence on renal dialysis; F03.90 Unspecified dementia, unspecified severity, without behavioral disturbance, psychotic disturbance, mood disturbance, and anxiety; E11.22 Type 2 diabetes mellitus with diabetic chronic kidney disease; I12.9 Hypertensive chronic kidney disease with stage 1 through stage 4 chronic kidney disease, or unspecified chronic kidney disease; N18.9 Chronic kidney disease, unspecified; D63.1 Anemia in chronic kidney disease; Z86.73 Personal history of transient ischemic attack (TIA), and cerebral infarction without residual deficits; Z86.718 Personal history of other venous thrombosis and embolism; Z93.1 Gastrostomy status; Z89.612 Acquired absence of left leg above knee; Z89.611 Acquired absence of right leg above knee; E78.00 Pure hypercholesterolemia, unspecified; M10.9 Gout, unspecified; R13.10 Dysphagia, unspecified; Z66 Do not resuscitate; K44.9 Diaphragmatic hernia without obstruction or gangrene; R91.8 Other nonspecific abnormal finding of lung field; K29.50 Unspecified chronic gastritis without bleeding; I34.0 Nonrheumatic mitral (valve) insufficiency; I35.0 Nonrheumatic aortic (valve) stenosis; Z86.11 Personal history of tuberculosis
CPT/HCPCS: 36415; 36600; 71045; 71250; 78315; 78807; 80048; 80053; 80061; 80202; 82140; 82248; 82550; 82553; 82607; 82728; 82746; 82803; 82962; 82977; 83036; 83540; 83550; 83605; 83690; 83735; 83880; 84100; 84443; 84484; 84550; 85007; 85025; 85610; 85651; 85730; 86140; 86635; 86703; 86706; 86850; 86900; 86901; 86920; 87040; 87070; 87081; 87116; 87181; 87324; 87556; 93005; 93306; 93970; 94003; 94150; 94640; 94664; 96365; 96375; 99285; A9570; J1815; J7620; J8499

== ENCOUNTER 2020-05-25 15:09 | Inpatient (IN) | payer MEDICARE, MEDICAID ==
[~2020-05-25] VITALS: Ht 172.7 cm; Wt 64.9 kg
[~2020-05-25 15:09] MED LIST changes: +ACETAMINOPHEN325 M1 GT; +ALPHAGAN P5 ML BOTH EYES; +ALPHAGAN1 DROP; +DUONEB 0.5-3(2.53 ML HHN; +FLUCONAZOLE100 MG GT; +FLUCONAZOLE100 MG ORAL; -FOLIC ACID1 MG GT; +FOLIC ACID1 MG JT; +INVANZ1 G1 IM; -MIRALAX17 G2 GT; +MIRALAX17 G2 JT; +PRAVASTATIN SOD20 M1 GT; +PRO-AMATINE10 MG GT; +RENVELA0.8 GM GT; +TIMOPTIC 0.5%1 DROP BOTH EYES; +UNOBMED; +ZINC SULFATE220 M1 GT; +ZYVOX600 MG GT; +ZYVOX600 MG JT; +ZYVOX600 MG ORAL
[2020-05-25 15:15] VITALS: BP 120/80
--- NOTE | 2020-05-25 15:15 | NUR ---
ED Nurse Note: Patient GIBSON RA 31 from [facility] d/t hypotension. Per EMS, patient became hypotensive during dialysis treatment today. SBP was 70 at the scene, they did not have a diastolic value. 600 mL NS given, current BP 120/80. Patient AxO x 1, withdraws to pain, does not obey commands.
[2020-05-25] MEDS ORDERED: FERROUS SU220 MG/53 JT (15:36)
--- NOTE | 2020-05-25 15:37 | NUR ---
ED Nurse Note: Rapid covid test collected and sent to lab
--- NOTE | 2020-05-25 15:46 | Diagnostic Imaging Report ---
EXAM: XR Chest, 1 View CLINICAL HISTORY: SOB TECHNIQUE: Frontal view of the chest. COMPARISON: 06/16/19. FINDINGS: Lungs: Unremarkable. No consolidation. Pleural space: Unremarkable. No pneumothorax. Heart/mediastinum. Borderline cardiomegaly, potentially attributable to portable technique Calcified aorta. Right subclavian venous stent again noted. Bones/joints: Unremarkable. IMPRESSION: No evidence of acute pulmonary disease
[2020-05-25] MEDS ORDERED: HUMALOG100 UNIT/4 SUBQ (15:51)
[2020-05-25] MEDS ORDERED: NOVASOURCE RE1000 M1 JT (15:51)
[2020-05-25] MEDS ORDERED: NEPHROVITE1 TAB GT (15:51)
--- NOTE | 2020-05-25 16:10 | NUR ---
ED Nurse Note: No urine when patient straight cathed, Dr. Robertson notified.
--- NOTE | 2020-05-25 16:40 | Emergency Room Report ---
History of Present Illness General Chief Complaint: General Complaint Source: Patient, Medical Record Present Illness HPI Patient is an 85-year-old female sent in from dialysis after decreased blood pressure. Patient had been dialyzed and subsequently was noted to have pressure dropped. She was given fluid bolus with some improvement in her blood pressure subsequently. Allergies: Coded Allergies: GABAPENTIN (Unverified Allergy, Unknown, 06/14/19) COVID-19 Screening Contact w/high risk pt: No Recent Travel to affected area: No Experienced COVID-19 symptoms?: No COVID-19 Testing performed [employer] REPAIRER: No Patient History Reviewed Nursing Documentation: PMH: Agreed; PSxH: Agreed Nursing Documentation-PMH Past Medical History: No History, Except For Hx Cardiac Problems: Yes - PNA, Anemia, Hyperlipidemia Hx Hypertension: Yes Hx Diabetes: Yes Hx Cancer: No Hx Gastrointestinal Problems: Yes - GERD Hx Dialysis: Yes - ESRD Hx Cerebrovascular Accident: Yes Review of Systems All Other Systems: negative except mentioned in HPI Physical Exam Vital Signs Date Time Temp Pulse Resp B/P (MAP) Pulse Ox O2 Delivery O2 Flow Rate FiO2 05/25/20 15:05 97.9 90 18 120/80 (93) 100 Room Air Sp02 EP Interpretation: reviewed, normal General Appearance: alert, lethargic, Postictal Head: atraumatic ENT: normal ENT inspection, other Neck: normal inspection, supple, no bony tend, limited range of motion Respiratory: normal inspection, no retraction Cardiovascular #1: normal inspection Gastrointestinal: non tender, soft, other - G-tube present Genitourinary: no CVA tenderness Musculoskeletal: back normal, other - Right upper extremity dialysis access, bilateral [id number] amputations Neurologic: motor weakness Skin: no rash Medical Decision Making Diagnostic Impression: Primary Impression: ESRD (end stage renal disease) on dialysis Additional Impression: Lactic acidosis ER Course Patient presented for low blood pressure. Differential diagnosis include but not limited to sepsis, pneumonia, electrolyte abnormality, dehydration, among others. Because of complexity of patient's case laboratory tests and imaging studies were ordered. Patient laboratory testing did show some evidence of elevated lactate. Patient was started on IV fluids. I do not see any definite source of infection . Dr. Fountain was contacted and agreed with observation in hospital due to episode of hypotension with unclear etiology. Labs Test 05/25/20 17:00 05/25/20 18:20 White Blood Count 6.7 K/UL (4.8-10.8) Red Blood Count 5.08 M/UL (4.20-5.40) Hemoglobin 13.5 G/DL (12.0-16.0) Hematocrit 45.3 % (37.0-47.0) Mean Corpuscular Volume 89 FL (80-99) Mean Corpuscular Hemoglobin 26.5 PG (27.0-31.0) Mean Corpuscular Hemoglobin Concent 29.7 G/DL (32.0-36.0) Red Cell Distribution Width 21.2 % (11.6-14.8) Platelet Count 167 K/UL (150-450) Mean Platelet Volume 8.2 FL (6.5-10.1) Neutrophils (%) (Auto) 81.9 % (45.0-75.0) Lymphocytes (%) (Auto) 8.8 % (20.0-45.0) Monocytes (%) (Auto) 7.0 % (1.0-10.0) Eosinophils (%) (Auto) 1.6 % (0.0-3.0) Basophils (%) (Auto) 0.7 % (0.0-2.0) Sodium Level 135 MMOL/L (136-145) Potassium Level 4.3 MMOL/L (3.5-5.1) Chloride Level 97 MMOL/L (98-107) Carbon Dioxide Level 29 MMOL/L (21-32) Anion Gap 9 mmol/L (5-15) Blood Urea Nitrogen 41 mg/dL (7-18) Creatinine 3.8 MG/DL (0.55-1.30) Estimat Glomerular Filtration Rate 13.8 mL/min (>60) Glucose Level 92 MG/DL (74-106) Calcium Level 7.9 MG/DL (8.5-10.1) Total Bilirubin 0.8 MG/DL (0.2-1.0) Aspartate Amino Transf (AST/SGOT) 45 U/L (15-37) Alanine Aminotransferase (ALT/SGPT) 57 U/L (12-78) Alkaline Phosphatase 253 U/L (46-116) Total Creatine Kinase 62 U/L (26-308) Creatine Kinase MB 1.1 NG/ML (0.0-3.6) Creatine Kinase MB Relative Index 1.7 Troponin I 0.052 ng/mL (0.000-0.056) Total Protein 8.8 G/DL (6.4-8.2) Albumin 3.0 G/DL (3.4-5.0) Globulin 5.8 g/dL Albumin/Globulin Ratio 0.5 (1.0-2.7) EKG Diagnostic Results Rate: normal Rhythm: NSR - 91 ST Segments: no acute changes Last Vital Signs Date Time Temp Pulse Resp B/P (MAP) Pulse Ox O2 Delivery O2 Flow Rate FiO2 05/25/20 15:05 97.9 90 18 120/80 (93) 100 Room Air Status: improved Disposition: PLACE IN OBSERVATION Condition: Stable Bar Robertson MD May 25, 2020 16:40
[2020-05-25 17:10] VITALS: BP 96/73
[2020-05-25 17:25] LABS: BASOPHILS % (AUTO) 0.7 % (0.0-2.0); EOSINOPHILS % (AUTO) 1.6 % (0.0-3.0); HEMATOCRIT 45.3 % (37.0-47.0); HEMOGLOBIN 13.5 G/DL (12.0-16.0); LYMPHOCYTES % (AUTO) 8.8 % (20.0-45.0); MEAN CORPUSCULAR VOLUME 89 FL (80-99); NEUTROPHILS % (AUTO) 81.9 % (45.0-75.0); PLATELET COUNT 167 K/UL (150-450); RED BLOOD COUNT 5.08 M/UL (4.20-5.40); RED CELL DISTRIBUTION WIDTH 21.2 % (11.6-14.8); WHITE BLOOD COUNT 6.7 K/UL (4.8-10.8)
[2020-05-25 17:42] LABS: ANION GAP 9 mmol/L (5-15); BLOOD UREA NITROGEN 41 mg/dL (7-18); CALCIUM 7.9 MG/DL (8.5-10.1); CARBON DIOXIDE 29 MMOL/L (21-32); CHLORIDE 97 MMOL/L (98-107); CREATININE 3.8 MG/DL (0.55-1.30); POTASSIUM 4.3 MMOL/L (3.5-5.1); SODIUM 135 MMOL/L (136-145)
[2020-05-25 17:49] LABS: ALANINE AMINOTRANSFERASE 57 U/L (12-78); ALBUMIN/GLOBULIN RATIO 0.5 (1.0-2.7); ALKALINE PHOSPHATASE 253 U/L (46-116); ASPARTATE AMINO TRANSFERASE 45 U/L (15-37); BILIRUBIN,TOTAL 0.8 MG/DL (0.2-1.0); CKMB 1.1 NG/ML (0.0-3.6); CREATINE KINASE 62 U/L (26-308)
--- NOTE | 2020-05-25 18:15 | NUR ---
ED Nurse Note: Reflex lactic sent to lab
--- NOTE | 2020-05-25 18:26 | NUR ---
ED Nurse Note: Patient resting in bed, no acute distress. Breathing even and unlabored. Temp 99.3
--- NOTE | 2020-05-25 19:20 | NUR ---
ED Nurse Note: Handoff report given to Gillian IVY
--- NOTE | 2020-05-25 19:36 | NUR ---
ED Nurse Note: Received report from Nicholas. IVY. Patient GIBSON RA 31 from [facility] d/t hypotension. Per EMS, patient became hypotensive during dialysis treatment today. How many L was out at the dialysis center is unknown. SBP was 70 and no DBP value at the scene. Per EMS, 600 mL NS given. BKA billaterally Repositioned and turned Pt with AMRN Pressure ulcer on the sacrum noted Patient AxO x 1. BP 107/86, HR 104, RR23 No acute distress noted Will continue to monitor
[2020-05-25 20:30] VITALS: BP 107/86
--- NOTE | 2020-05-25 20:45 | NUR ---
TRANSFER TO FLOOR: Patient transferred to Tele room 216-2 as ordered, per MD Ortiz. Report given to ACTA Espinoza. Transferred with alison with 2 RNs. Covid STAT test was negative. Safety measure was observed.
--- NOTE | 2020-05-25 20:52 | NUR ---
NURSE NOTES: Received report from LENNIE French RN. Patient was transferred to Telemetry unit from ER via draw sheet method, 3 staff member assist without incident. No signs of acute distress or pain noted at this time. AOx1; unable to make needs known. Aphasic. Able to open eyes spontaneously. Checked IV site; patent and flushed. No erythema, bleeding, or infiltration noted. Right upper arm AV shunt noted. J-tube in place. Skin assessment performed. Wound photo taken. Patient has a history of bilateral murby-[id number]-[id number] amputation. Belongings list checked; no belongings. Bed at lowest position, brakes on, siderails up x3. Call light within reach. Will continue to monitor.
[2020-05-25 21:05] VITALS: BP 94/45
[2020-05-25] MEDS ORDERED: SENNA8.6 M2 JT (22:04)
--- NOTE | 2020-05-25 22:15 | NUR ---
NURSE NOTES: Called Dr. Alcantar for admission orders, awaiting return call.
[2020-05-25] MEDS ORDERED: NS 250 ML IVPB ONE (22:30)
[2020-05-25] MEDS ORDERED: Sennosides 8.6mg tab GT PRN (22:30)
--- NOTE | 2020-05-25 22:30 | NUR ---
NURSE NOTES: Orders received from Dr. Alcantar, pt.'s code stats is DNR/DNI.
[2020-05-25] MEDS ORDERED: NS 250 ML IVPB PRN (23:00)
[2020-05-26] VITALS: BP 117/54
[2020-05-26 04:00] VITALS: BP 104/47
[2020-05-26] MEDS: NovoLOG Insulin Flexpen SUBQ SCH ×4 (06:06→20:26)
--- NOTE | 2020-05-26 07:30 | NUR ---
HAND-OFF: Report given to CATA Muir. Patient in stable condition.
--- NOTE | 2020-05-26 07:45 | NUR ---
NURSE NOTES: Received pt from CATA Dennis/Ambrocio. Pt is sleeping, pt is in RA, no SOB or acute respiratory distress noted. Pt is on continues heart monitoring. pt has intact IV access LFA 22G SL. Pt has J tube in place is working well. pt has intact PRERNA AV shunt. all needs attended, bed is locked and is in the lowest position, call light within easy reach. will continue to monitor.
[2020-05-26 08:00] VITALS: BP 108/42
[2020-05-26] MEDS: Miralax 17gm pkt GT SCH ×2 (09:00→09:32)
[2020-05-26] MEDS: Nephrovite tab (Rena-Vite) GT SCH (09:32)
[2020-05-26] MEDS: Ferrous Sulfate 300 MG/5 ML UDC GT SCH (09:32)
[2020-05-26] MEDS: Heparin 5000 units/ml inj SUBQ SCH ×2 (09:33→20:28)
--- NOTE | 2020-05-26 10:04 | NUR ---
NURSE NOTES: no eye drop in pt's bin, pharmacy is aware from 0900, still not yet. will continue to F/U.
[2020-05-26] MEDS: Brimonidine 0.2% Opth Sol BOTH EYES SCH ×2 (10:17→17:08)
[2020-05-26] MEDS: timoloL maleate 0.5% Op Soln 2.5ml BOTH EYES SCH ×2 (10:17→17:08)
--- NOTE | 2020-05-26 11:42 | History & Physical ---
History and Physical History & Physicial HISTORY OF PRESENT ILLNESS: This is an 85-year-old female with a history of end-stage renal disease, on hemodialysis three times a week with the last dialysis was on 05/25/20. The patient lives in [facility] and was brought in for complaint of hypotension with blood pressure in 80's systolic. She was hypotensive in dialysis center and she received 500 cc bolus of IV NS as well and will be admitted today on 03/11 under observation for hypotension. Covid 19 test negative. She has a history of dementia and aphasia, and most of the history has been obtained from chart. PAST MEDICAL HISTORY: Includes history of diabetes, hypertension, end-stage renal disease on hemodialysis, hyperlipidemia, peripheral vascular disease, history of CVA and DVT, anemia due to chronic kidney disease, and gout. History of TB in childhood, Functional Quadriplegia, history of upper GI bleeding. PAST SURGICAL HISTORY: History of right arm arteriovenous graft, bilateral kndfe-cun-gvir amputation, and PEG placement for G-tube feeding. CURRENT MEDICATIONS: Please check with chart for current medication at the [facility]. ALLERGIES: Gabapentin. SOCIAL HISTORY: The patient resides at the [facility]. No previous history of smoking, drug, or alcohol use. REVIEW OF SYSTEMS: Negative except for HPI. PHYSICAL EXAMINATION: VITAL SIGNS: Temp 97.9, Pulse 90, respirations 18, and blood pressure 120/80. HEENT: Normocephalic, normochromic. Extraocular muscles intact. [place] conjunctivae. Anicteric sclerae. NECK: Supple. No lymphadenopathy. LUNGS: Clear to auscultation. HEART: slightly hypotensive in ER, Normal S1-S2, Regular rhythm, No murmur or gallop. ABDOMEN: Soft and nontender. J/G-tube in place in the abdomen. EXTREMITIES: Status post bilateral eanaw-eyx-noer amputation. LABORATORY AND DIAGNOSTIC DATA: Include WBC 17.3, hemoglobin 9.8, hematocrit 31.2, platelet count 376, neutrophils 77, and lymphocytes 16.4. Sodium 142, potassium 4.5, chloride 99, bicarb 32, BUN 103, and creatinine 9.3. Glucose is 136. Lactic acid 2.1. Calcium 9.6, phosphorus 5.2, magnesium 2.7. AST 45, ALT 28, and alkaline phosphatase 146. Creatine kinase is 13. Troponin 0.042. BNP is 5639. Albumin 2.5. PT is 10.7, INR 1, and PTT 31. Chest x-ray, no acute disease or significant change. IMPRESSION: 1. This 85-year-old female with aphasia who will be admitted under observation for hypotension. 2. End-stage renal disease, on hemodialysis. We will restart hemodialysis and Dr. Aftab Arnold will see her from Nephrology for further dialysis if continue to be as inpatient. 3. Hypercholesterolemia. Again, continue the home medications. 4. Diabetes type 2. We will start the patient on sliding scale insulin. 5. Gout. We will continue the patient on allopurinol as outpatient. 6. History of CVA. 7. History of peripheral vascular disease and knee amputation. 8. History of DVT previously. PLAN: The patient will be admitted under obervation over night and her blood pressure will be monitored. Pam Alcantar MD May 26, 2020 11:42
[2020-05-26 12:00] VITALS: BP 123/78
--- NOTE | 2020-05-26 12:04 | NUR ---
NURSE NOTES: Dr Alcantar called and ordered to D/C Covid isolation, note4d and carried out. will continue to monitor.
--- NOTE | 2020-05-26 13:05 | NUR ---
RD ASSESSMENT & RECOMMENDATIONS SEE CARE ACTIVITY FOR COMPLETE ASSESSMENT DAILY ESTIMATED NEEDS: Needs based on ESRD/HD / 60.7kg adj for BL AKA 25-35 kcals/kg 8556-9244 total kcals 1.25-1.8 g protein/kg 76-109 g total protein Fluid per MD on HD NUTRITION DIAGNOSIS: * Increased kcal/pro intake needs R/T renal dysfunction, wound healing as evidenced by ESRD dx, on HD. admitted w/ advanced wounds including full thickness wounds x3, refer to WC eval CURRENT TF:Nepro @40 ENTERAL NUTRITION RECOMMENDATIONS: Nepro @ 40ml/hr x 24 hrs + Prosource x1 daily to provide 960ml, 1728kcal, 78g + 11g pro, 698ml free water * Maintain current TF * Add Prosource x1 daily to better meet est pro needs * HOB over 30 degrees/ water flush per MD. ADDITIONAL RECOMMENDATIONS: * Calibrated dry wt post HD * F/up w/ Wound Care eval * Add prosource 1 pack daily (11g pro) to better meet est pro needs
[2020-05-26 13:16] LABS: BASOPHILS % (AUTO) 0.8 % (0.0-2.0); EOSINOPHILS % (AUTO) 3.1 % (0.0-3.0); HEMATOCRIT 46.2 % (37.0-47.0); HEMOGLOBIN 13.2 G/DL (12.0-16.0); LYMPHOCYTES % (AUTO) 18.1 % (20.0-45.0); MEAN CORPUSCULAR VOLUME 92 FL (80-99); MONOCYTES % (AUTO) 8.1 % (1.0-10.0); NEUTROPHILS % (AUTO) 69.9 % (45.0-75.0); PLATELET COUNT 163 K/UL (150-450); RED BLOOD COUNT 5.03 M/UL (4.20-5.40); RED CELL DISTRIBUTION WIDTH 20.3 % (11.6-14.8)
[2020-05-26 13:21] LABS: ANION GAP 10 mmol/L (5-15); BLOOD UREA NITROGEN 65 mg/dL (7-18); CALCIUM 8.2 MG/DL (8.5-10.1); CARBON DIOXIDE 30 MMOL/L (21-32); CHLORIDE 97 MMOL/L (98-107); CREATININE 5.3 MG/DL (0.55-1.30); POTASSIUM 4.7 MMOL/L (3.5-5.1); SODIUM 137 MMOL/L (136-145)
--- NOTE | 2020-05-26 14:00 | NUR ---
NURSE NOTES: Dr Alcantar is aware about lab results, no new order to RN, Dr wellington Arnold is aware about HD and he will come to F/U. Will continue to monitor.
--- NOTE | 2020-05-26 14:56 | General Progress Note ---
Assessment/Plan Status: stable Assessment/Plan: 1. Hypotension resolved and stable. 2. Diarrhea - check stool c diff toxin. 3. End-stage renal disease, on hemodialysis. consult for HD by Dr. Aftab Arnold done. 4. Dysphagia s/p G/J tube placement - will consult GI for evaluation of tube malfunction. will change to full admission to evaluate the tube feeding. 5. Diabetes type 2. We will start the patient on sliding scale insulin. 6. Gout. stable. 7. History of CVA. 8. History of peripheral vascular disease and knee amputation. 9. History of DVT previously. Subjective Date patient seen: May 26, 2020 Time patient seen: 12:15 Constitutional: Reports: no symptoms HEENT: Reports: no symptoms Cardiovascular: Reports: no symptoms Respiratory: Reports: no symptoms Gastrointestinal/Abdominal: Reports: diarrhea Genitourinary: Reports: no symptoms Neurologic/Psychiatric: Reports: no symptoms Endocrine: Reports: no symptoms Hematologic/Lymphatic: Reports: no symptoms Allergies: Coded Allergies: GABAPENTIN (Unverified Allergy, Unknown, 06/14/19) Subjective This morning she had 4 episodes of loose stool. no fever or chills. No abd pain. Her blood pressure is better today. Objective Last 24 Hour Vital Signs Date Time Temp Pulse Resp B/P (MAP) Pulse Ox O2 Delivery O2 Flow Rate FiO2 05/26/20 12:00 97.5 78 20 123/78 (93) 98 05/26/20 11:42 73 05/26/20 09:00 Room Air 05/26/20 08:00 97.5 73 20 108/42 (64) 94 05/26/20 07:47 74 05/26/20 04:00 77 05/26/20 04:00 98.3 74 18 104/47 (66) 94 05/26/20 00:00 97.5 80 18 117/54 (75) 97 05/26/20 00:00 84 05/25/20 23:25 Room Air 05/25/20 21:55 88 05/25/20 21:05 97.9 83 18 94/45 (61) 99 05/25/20 20:30 99.0 104 22 107/86 100 Room Air 05/25/20 20:30 99.0 104 22 107/86 100 Room Air 05/25/20 17:10 99.6 89 17 96/73 100 Room Air 05/25/20 15:15 90 18 Room Air 05/25/20 15:15 99.6 98 18 120/80 100 Room Air 05/25/20 15:05 97.9 90 18 120/80 (93) 100 Room Air Intake and Output 05/25/20 05/26/20 19:00 07:00 Intake Total 250 ml Balance 250 ml Intake Oral 0 ml Free Water 200 ml Tube Feeding 50 ml # Bowel Movements 2 Laboratory Tests 05/25/20 17:00: White Blood Count 6.7, Red Blood Count 5.08, Hemoglobin 13.5, Hematocrit 45.3, Mean Corpuscular Volume 89, Mean Corpuscular Hemoglobin 26.5L, Mean Corpuscular Hemoglobin Concent 29.7L, Red Cell Distribution Width 21.2H, Platelet Count 167 , Mean Platelet Volume 8.2, Neutrophils (%) (Auto) 81.9H, Lymphocytes (%) (Auto ) 8.8L, Monocytes (%) (Auto) 7.0, Eosinophils (%) (Auto) 1.6, Basophils (%) ( Auto) 0.7, Sodium Level 135L, Potassium Level 4.3, Chloride Level 97L, Carbon Dioxide Level 29, Anion Gap 9, Blood Urea Nitrogen 41H, Creatinine 3.8H, Estimat Glomerular Filtration Rate 13.8, Glucose Level 92, Lactic Acid Level 2.10H, Calcium Level 7.9L, Total Bilirubin 0.8, Aspartate Amino Transf (AST/SGOT ) 45H, Alanine Aminotransferase (ALT/SGPT) 57, Alkaline Phosphatase 253H, Total Creatine Kinase 62, Creatine Kinase MB 1.1, Creatine Kinase MB Relative Index 1.7, Troponin I 0.052, Total Protein 8.8H, Albumin 3.0L, Globulin 5.8, Albumin/ Globulin Ratio 0.5L 05/25/20 18:20: Lactic Acid Level 2.00 05/26/20 13:00: White Blood Count 5.0, Red Blood Count 5.03, Hemoglobin 13.2, Hematocrit 46.2, Mean Corpuscular Volume 92, Mean Corpuscular Hemoglobin 26.3L, Mean Corpuscular Hemoglobin Concent 28.7L, Red Cell Distribution Width 20.3H, Platelet Count 163 , Mean Platelet Volume 8.1, Neutrophils (%) (Auto) 69.9, Lymphocytes (%) (Auto) 18.1L, Monocytes (%) (Auto) 8.1, Eosinophils (%) (Auto) 3.1H, Basophils (%) ( Auto) 0.8, Sodium Level 137, Potassium Level 4.7, Chloride Level 97L, Carbon Dioxide Level 30, Anion Gap 10, Blood Urea Nitrogen 65H, Creatinine 5.3H, Estimat Glomerular Filtration Rate 9.3, Glucose Level 95, Calcium Level 8.2L Height (Feet): 5 Height (Inches): 8.00 Weight (Pounds): 144 General Appearance: no apparent distress, alert EENT: normal ENT inspection Neck: non-tender, supple Cardiovascular: normal rate, regular rhythm Respiratory/Chest: chest wall non-tender, lungs clear Abdomen: non tender, soft Extremities: non-tender Neurologic: alert, responsive Skin: warm/dry Pam Alcantar MD May 26, 2020 14:56
[2020-05-26 16:00] VITALS: BP 123/45
--- NOTE | 2020-05-26 17:35 | Consultation ---
History of Present Illness General Date patient seen: May 26, 2020 Chief Complaint: General Complaint Reason for Consultation: ESRD on HD Present Illness HPI This is a "85-year-old female with a history of end-stage renal disease, on hemodialysis three times a week with the last dialysis was on 05/25/20. The patient lives in [facility] and was brought in for complaint of hypotension with blood pressure in 80's systolic. She was hypotensive in dialysis center and she received 500 cc bolus of IV NS . She gets dialyzed via RUE AV shunt Covid 19 test negative. She has a history of dementia and aphasia, and most of the history has been obtained from chart. Allergies: Coded Allergies: GABAPENTIN (Unverified Allergy, Unknown, 06/14/19) Medication History Scheduled Brimonidine Tartrate (Alphagan P), 5 ML OP BID, (Reported) Ferrous Sulfate (Ferrous Sulfate), 220 MG GT DAILY, (Reported) Folic Acid* (Folic Acid*), 1 MG GT DAILY, (Reported) Insulin Aspart (Novolog Flexpen), 0 UNITS SUBQ EVERY 6 HOURS Insulin Lispro (Humalog), 0 SUBQ TWICE A DAY, (Reported) Nutritional Supplement (Novasource Renal), Unknown Dose IV DAILY, (Reported) Polyethylene Glycol 3350* (Miralax*), 17 GM GT DAILY, (Reported) Timolol Maleate (Timolol Maleate), 1 DROP BOTH EYES TWICE A DAY, (Reported) Vitamin B Cmplx/Vit C/Folic AC (Nephro-Xavier Tablet), 1 TAB GT DAILY, (Reported) Scheduled PRN Sennosides (Senna), 17.2 MG PO PRN PRN for Constipation, (Reported) Patient History Healthcare decision maker Resuscitation status Advanced Directive on File Review of Systems ROS Narrative Unable to obtain due to clinical condition Physical Exam General Appearance: no apparent distress Lines, tubes and drains: peripheral HEENT: normocephalic, atraumatic Neck: non-tender, normal alignment Respiratory/Chest: chest wall non-tender, lungs clear Abdomen: normal bowel sounds, non tender, soft Extremities: normal range of motion, non-tender Skin Exam: normal pigmentation Neurologic: disoriented, aphasia Last 24 Hour Vital Signs Date Time Temp Pulse Resp B/P (MAP) Pulse Ox O2 Delivery O2 Flow Rate FiO2 05/26/20 16:00 97.2 79 20 123/45 (71) 97 05/26/20 15:36 77 05/26/20 12:00 97.5 78 20 123/78 (93) 98 05/26/20 11:42 73 05/26/20 09:00 Room Air 05/26/20 08:00 97.5 73 20 108/42 (64) 94 05/26/20 07:47 74 05/26/20 04:00 77 05/26/20 04:00 98.3 74 18 104/47 (66) 94 05/26/20 00:00 97.5 80 18 117/54 (75) 97 05/26/20 00:00 84 05/25/20 23:25 Room Air 05/25/20 21:55 88 05/25/20 21:05 97.9 83 18 94/45 (61) 99 05/25/20 20:30 99.0 104 22 107/86 100 Room Air 05/25/20 20:30 99.0 104 22 107/86 100 Room Air Intake and Output 05/25/20 05/26/20 19:00 07:00 Intake Total 250 ml Balance 250 ml Intake Oral 0 ml Free Water 200 ml Tube Feeding 50 ml # Bowel Movements 2 Laboratory Tests Test 05/25/20 18:20 05/26/20 13:00 05/26/20 15:51 Lactic Acid Level 2.00 mmol/L (0.66-2.22) White Blood Count 5.0 K/UL (4.8-10.8) Red Blood Count 5.03 M/UL (4.20-5.40) Hemoglobin 13.2 G/DL (12.0-16.0) Hematocrit 46.2 % (37.0-47.0) Mean Corpuscular Volume 92 FL (80-99) Mean Corpuscular Hemoglobin 26.3 PG (27.0-31.0) L Mean Corpuscular Hemoglobin Concent 28.7 G/DL (32.0-36.0) L Red Cell Distribution Width 20.3 % (11.6-14.8) H Platelet Count 163 K/UL (150-450) Mean Platelet Volume 8.1 FL (6.5-10.1) Neutrophils (%) (Auto) 69.9 % (45.0-75.0) Lymphocytes (%) (Auto) 18.1 % (20.0-45.0) L Monocytes (%) (Auto) 8.1 % (1.0-10.0) Eosinophils (%) (Auto) 3.1 % (0.0-3.0) H Basophils (%) (Auto) 0.8 % (0.0-2.0) Sodium Level 137 MMOL/L (136-145) Potassium Level 4.7 MMOL/L (3.5-5.1) Chloride Level 97 MMOL/L (98-107) L Carbon Dioxide Level 30 MMOL/L (21-32) Anion Gap 10 mmol/L (5-15) Blood Urea Nitrogen 65 mg/dL (7-18) H Creatinine 5.3 MG/DL (0.55-1.30) H Estimat Glomerular Filtration Rate 9.3 mL/min (>60) Glucose Level 95 MG/DL (74-106) Calcium Level 8.2 MG/DL (8.5-10.1) L POC Whole Blood Glucose Pending Height (Feet): 5 Height (Inches): 8.00 Weight (Pounds): 144 Medications Current Medications Medications (Trade) Dose Ordered Sig/Selene Route PRN Reason Start Time Stop Time Status Last Admin Dose Admin Brimonidine Tartrate (Alphagan) 1 drop BID BOTH EYES 05/26/20 09:00 08/24/20 08:59 05/26/20 17:08 Dextrose (Dextrose 50%) 25 ml Q30M PRN IV Hypoglycemia 05/25/20 22:30 08/23/20 22:29 Dextrose (Dextrose 50%) 50 ml Q30M PRN IV Hypoglycemia 05/25/20 22:30 08/23/20 22:29 Ferrous Sulfate (Feosol) 220 mg DAILY GT 05/26/20 09:00 08/24/20 08:59 05/26/20 09:32 Folic Acid (Folate) 1 mg DAILY GT 05/26/20 09:00 06/25/20 08:59 05/26/20 09:32 Heparin Sodium (Porcine) (Heparin 5000 units/ml) 5,000 units EVERY 12 HOURS SUBQ 05/26/20 09:00 07/10/20 08:59 05/26/20 09:33 Insulin Aspart (NovoLOG) BEFORE MEALS AND HS SUBQ 05/26/20 06:30 08/24/20 06:29 Polyethylene Glycol (Miralax) 17 gm DAILY GT 05/26/20 09:00 06/25/20 08:59 Sennosides (Senokot) 17.2 mg PRN PRN GT Constipation 05/25/20 22:30 06/24/20 22:29 Sodium Chloride 250 ml @ 999 mls/hr PRN PRN IVPB HYPOTENSION 05/25/20 23:00 06/24/20 22:59 Timolol Maleate (timoloL maleate 0.5% Op Soln) 1 drop TWICE A DAY BOTH EYES 05/26/20 09:00 06/25/20 08:59 05/26/20 17:08 Vitamin B Complex/ Vit C/Folic Acid (Nephrovite) 1 tab DAILY GT 05/26/20 09:00 06/25/20 08:59 05/26/20 09:32 Assessment/Plan Diagnosis [place] I: #ESRD On HD - STTH #intradialytic hypotension #HTN #DM #HLD #Anemia #h/o CVA #h/o GI bleed #h/o PAD - next HD on wednesday - check iron panel - check ferritin - check PTH - check vitamin D - check mag, phos, bmp daily - monitor I&Os time spent 70 min - greater than 50% on care coordination of care MIPS Medication Reconciliation Is this a Psycho/Diag encounte: No Depression Does this Patient have Dementi: Yes Dalton Rice M.D. May 26, 2020 17:35
--- NOTE | 2020-05-26 19:26 | NUR ---
HAND-OFF: Report given to CATA Deleon. Pt is awake and stable,endorsed plan of care. Endorsed to monitor BP.
[2020-05-26 20:00] VITALS: BP 113/58
--- NOTE | 2020-05-26 20:00 | NUR ---
NURSE NOTES: Checked NG-tube residual and it is 0mL, flushed 200 mL water, patent and running Nepro 40mL / hr. No signs or symptoms of aspiration noted.
--- NOTE | 2020-05-26 23:00 | NUR ---
NURSE NOTES: digital tech informed me that patient is showing trigeminy cardiac rhythm. Making attempts to reach Dr. Alcantar.
--- NOTE | 2020-05-26 23:09 | NUR ---
NURSE NOTES: Left a voicemail stating the change in cardiac rhythm (trigeminy) for the on-call.
--- NOTE | 2020-05-26 23:11 | NUR ---
NURSE NOTES: Vital signs are stable, BP: 116/61, SpO2: 98%, HR: 76, T: 99.7, RR: 20; bilateral pupils are equal, reactive and brisk.
--- NOTE | 2020-05-26 23:11 | NUR ---
NURSE NOTES: Patient is not demonstrating any pain, SOB, patient LOC remains the same. No changes in condition is noted at this time.
--- NOTE | 2020-05-26 23:15 | NUR ---
NURSE NOTES: Dr. Alcantar called and gave orders to include Dr. Osborne as a consult for cardiology and to notify Dr. Osborne.
--- NOTE | 2020-05-26 23:16 | NUR ---
NURSE NOTES: Notified Dr. Osborne regarding Trigeminy with PVCs. Awaiting order.
[2020-05-27] VITALS: BP 114/65
[2020-05-27 04:00] VITALS: BP 116/62
[2020-05-27] MEDS: NovoLOG Insulin Flexpen SUBQ SCH ×4 (05:58→21:00)
[2020-05-27 07:02] LABS: BASOPHILS % (AUTO) 0.9 % (0.0-2.0); EOSINOPHILS % (AUTO) 3.4 % (0.0-3.0); HEMATOCRIT 45.1 % (37.0-47.0); LYMPHOCYTES % (AUTO) 20.5 % (20.0-45.0); MEAN CORPUSCULAR VOLUME 91 FL (80-99); MONOCYTES % (AUTO) 7.6 % (1.0-10.0); NEUTROPHILS % (AUTO) 67.7 % (45.0-75.0); PLATELET COUNT 170 K/UL (150-450); RED BLOOD COUNT 4.95 M/UL (4.20-5.40); RED CELL DISTRIBUTION WIDTH 20.4 % (11.6-14.8); WHITE BLOOD COUNT 4.9 K/UL (4.8-10.8)
[2020-05-27 07:20] LABS: ANION GAP 12 mmol/L (5-15); BLOOD UREA NITROGEN 89 mg/dL (7-18); CALCIUM 8.7 MG/DL (8.5-10.1); CARBON DIOXIDE 28 MMOL/L (21-32); CHLORIDE 99 MMOL/L (98-107); CREATININE 6.6 MG/DL (0.55-1.30); FERRITIN 819 NG/ML (8-388); POTASSIUM 4.5 MMOL/L (3.5-5.1); SODIUM 139 MMOL/L (136-145)
[2020-05-27 07:21] LABS: % IRON SATURATION 55 % (15-50); IRON 90 ug/dL (50-175); TOTAL IRON BINDING CAPACITY 164 ug/dL (250-450)
--- NOTE | 2020-05-27 07:30 | NUR ---
HAND-OFF: Report given to Olga Paulino RN. Plan of care endorsed. Patient in stable condition.
[2020-05-27 07:42] LABS: PHOSPHORUS 4.5 MG/DL (2.5-4.9)
[2020-05-27 08:00] VITALS: BP 118/55
--- NOTE | 2020-05-27 08:00 | NUR ---
NURSE NOTES: Received report from CAAT Patel. Pt A/O x0, aphasic. No s/sx of acute distress, breathing even and unlabored in RA. IV site patent and asymptomatic. J-tube intact, tube feeding running at goal. Bed on lowest position, call light within reach. Will continue plan of care.
--- NOTE | 2020-05-27 08:56 | General Progress Note ---
Assessment/Plan Status: stable Assessment/Plan: 1. C diff toxin positive - start vanco 125 mg po q 6 hrs x 10 days. 2. episode of Trigemy - cardiology consult ordered. check labs. 3. End-stage renal disease, on hemodialysis. consult for HD by Dr. Aftab Arnold done. 4. Dysphagia s/p G/J tube placement - will consult GI for evaluation of tube malfunction. will change to full admission to evaluate the tube feeding. 5. Diabetes type 2. We will start the patient on sliding scale insulin. 6. Gout. stable. 7. History of CVA. 8. History of peripheral vascular disease and knee amputation. 9. History of DVT previously. Subjective Date patient seen: May 27, 2020 Time patient seen: 08:40 Constitutional: Reports: no symptoms HEENT: Reports: no symptoms Cardiovascular: Reports: other - episode of Trigemy Respiratory: Reports: no symptoms Gastrointestinal/Abdominal: Reports: diarrhea Genitourinary: Reports: no symptoms Neurologic/Psychiatric: Reports: no symptoms Endocrine: Reports: no symptoms Hematologic/Lymphatic: Reports: no symptoms Allergies: Coded Allergies: GABAPENTIN (Unverified Allergy, Unknown, 06/14/19) Subjective she had low grade fever and diarrhea and her c diff toxin was positive. No abd pain. Her blood pressure is good. Objective Last 24 Hour Vital Signs Date Time Temp Pulse Resp B/P (MAP) Pulse Ox O2 Delivery O2 Flow Rate FiO2 05/27/20 08:00 97.3 75 20 118/55 (76) 95 05/27/20 04:00 81 05/27/20 04:00 98.8 81 17 116/62 (80) 95 05/27/20 00:00 99.5 77 16 114/65 (81) 98 05/27/20 00:00 77 05/26/20 22:57 77 05/26/20 21:00 Room Air 05/26/20 20:00 75 05/26/20 20:00 98.6 95 16 113/58 (76) 95 05/26/20 16:00 97.2 79 20 123/45 (71) 97 05/26/20 15:36 77 05/26/20 12:00 97.5 78 20 123/78 (93) 98 05/26/20 11:42 73 05/26/20 09:00 Room Air Intake and Output 05/26/20 05/27/20 19:00 07:00 Intake Total 710 ml Balance 710 ml Free Water 400 ml Tube Feeding 310 ml # Voids 2 1 # Bowel Movements 5 1 Laboratory Tests 05/26/20 12:16: POC Whole Blood Glucose 92 05/26/20 13:00: White Blood Count 5.0, Red Blood Count 5.03, Hemoglobin 13.2, Hematocrit 46.2, Mean Corpuscular Volume 92, Mean Corpuscular Hemoglobin 26.3L, Mean Corpuscular Hemoglobin Concent 28.7L, Red Cell Distribution Width 20.3H, Platelet Count 163 , Mean Platelet Volume 8.1, Neutrophils (%) (Auto) 69.9, Lymphocytes (%) (Auto) 18.1L, Monocytes (%) (Auto) 8.1, Eosinophils (%) (Auto) 3.1H, Basophils (%) ( Auto) 0.8, Sodium Level 137, Potassium Level 4.7, Chloride Level 97L, Carbon Dioxide Level 30, Anion Gap 10, Blood Urea Nitrogen 65H, Creatinine 5.3H, Estimat Glomerular Filtration Rate 9.3, Glucose Level 95, Calcium Level 8.2L 05/26/20 15:51: POC Whole Blood Glucose [Pending] 05/26/20 20:08: POC Whole Blood Glucose [Pending] 05/27/20 05:30: White Blood Count 4.9, Red Blood Count 4.95, Hemoglobin 13.0, Hematocrit 45.1, Mean Corpuscular Volume 91, Mean Corpuscular Hemoglobin 26.3L, Mean Corpuscular Hemoglobin Concent 28.8L, Red Cell Distribution Width 20.4H, Platelet Count 170 , Mean Platelet Volume 7.7, Neutrophils (%) (Auto) 67.7, Lymphocytes (%) (Auto) 20.5, Monocytes (%) (Auto) 7.6, Eosinophils (%) (Auto) 3.4H, Basophils (%) (Auto ) 0.9, Sodium Level 139, Potassium Level 4.5, Chloride Level 99, Carbon Dioxide Level 28, Anion Gap 12, Blood Urea Nitrogen 89H, Creatinine 6.6H, Estimat Glomerular Filtration Rate 7.3, Glucose Level 95, Calcium Level 8.7, Calcium ( Send out) [Pending], Phosphorus Level 4.5, Iron Level 90, Total Iron Binding Capacity 164L, Percent Iron Saturation 55H, Unsaturated Iron Binding 74L, Ferritin 819H, Vitamin D 25-Hydroxy [Pending], 25-Hydroxy Vitamin D2 [Pending], 25-Hydroxy Vitamin D3 [Pending], Parathyroid Hormone (Intact) [Pending], Hepatitis B Surface Antigen [Pending] 05/27/20 05:56: POC Whole Blood Glucose 109H Height (Feet): 5 Height (Inches): 8.00 Weight (Pounds): 143 General Appearance: no apparent distress, alert EENT: normal ENT inspection Neck: non-tender, supple Cardiovascular: normal rate, regular rhythm Respiratory/Chest: lungs clear, normal breath sounds Abdomen: non tender, soft Extremities: non-tender Neurologic: alert, responsive Skin: warm/dry Pam Alcantar MD May 27, 2020 08:56
--- NOTE | 2020-05-27 09:00 | NUR ---
NURSE NOTES: Dr Nathan made aware that pt is (+) for C-Diff. ordered vanco oral Q6h for 10 days. Per , okay to use J-tube for feeding.
[2020-05-27] MEDS: Ferrous Sulfate 300 MG/5 ML UDC GT SCH (09:51)
[2020-05-27] MEDS: Nephrovite tab (Rena-Vite) GT SCH (09:51)
[2020-05-27] MEDS: Miralax 17gm pkt GT SCH (09:51)
[2020-05-27] MEDS: Heparin 5000 units/ml inj SUBQ SCH ×2 (09:52→21:57)
[2020-05-27] MEDS: timoloL maleate 0.5% Op Soln 2.5ml BOTH EYES SCH ×2 (09:57→17:46)
[2020-05-27] MEDS: Brimonidine 0.2% Opth Sol BOTH EYES SCH ×2 (09:57→17:46)
[2020-05-27 10:29] LABS: ALANINE AMINOTRANSFERASE 45 U/L (12-78); ALBUMIN 2.8 G/DL (3.4-5.0); ALKALINE PHOSPHATASE 228 U/L (46-116); ASPARTATE AMINO TRANSFERASE 42 U/L (15-37); BILIRUBIN,DIRECT 0.2 MG/DL (0.0-0.3); BILIRUBIN,TOTAL 0.5 MG/DL (0.2-1.0)
[2020-05-27 12:00] VITALS: BP 121/56
[2020-05-27] MEDS ORDERED: Vancomycin oral 125mg/2.5ml ORAL SCH (12:00)
[2020-05-27] MEDS: Vancomycin oral 125mg/2.5ml ORAL SCH ×2 (12:52→17:46)
--- NOTE | 2020-05-27 13:35 | Nephrology Progress Note ---
Assessment/Plan Problem List: (1) ESRD (end stage renal disease) on dialysis (2) Decubitus skin ulcer (3) DM (diabetes mellitus) (4) C. difficile colitis (5) Dementia Plan HD tomorrow Check PTH, Vit D PO Vanco No Epogen yet Daily Nephrovite Subjective Subjective In NAD Objective Objective Last 24 Hour Vital Signs Date Time Temp Pulse Resp B/P (MAP) Pulse Ox O2 Delivery O2 Flow Rate FiO2 05/27/20 09:00 Room Air 05/27/20 08:00 97.3 75 20 118/55 (76) 95 05/27/20 07:40 78 05/27/20 04:00 81 05/27/20 04:00 98.8 81 17 116/62 (80) 95 05/27/20 00:00 99.5 77 16 114/65 (81) 98 05/27/20 00:00 77 05/26/20 22:57 77 05/26/20 21:00 Room Air 05/26/20 20:00 75 05/26/20 20:00 98.6 95 16 113/58 (76) 95 05/26/20 16:00 97.2 79 20 123/45 (71) 97 05/26/20 15:36 77 Intake and Output 05/26/20 05/27/20 19:00 07:00 Intake Total 710 ml Balance 710 ml Free Water 400 ml Tube Feeding 310 ml # Voids 2 1 # Bowel Movements 5 1 Laboratory Tests 05/26/20 15:51: POC Whole Blood Glucose [Pending] 05/26/20 20:08: POC Whole Blood Glucose [Pending] 05/27/20 05:30: White Blood Count 4.9, Red Blood Count 4.95, Hemoglobin 13.0, Hematocrit 45.1, Mean Corpuscular Volume 91, Mean Corpuscular Hemoglobin 26.3L, Mean Corpuscular Hemoglobin Concent 28.8L, Red Cell Distribution Width 20.4H, Platelet Count 170 , Mean Platelet Volume 7.7, Neutrophils (%) (Auto) 67.7, Lymphocytes (%) (Auto) 20.5, Monocytes (%) (Auto) 7.6, Eosinophils (%) (Auto) 3.4H, Basophils (%) (Auto ) 0.9, Sodium Level 139, Potassium Level 4.5, Chloride Level 99, Carbon Dioxide Level 28, Anion Gap 12, Blood Urea Nitrogen 89H, Creatinine 6.6H, Estimat Glomerular Filtration Rate 7.3, Glucose Level 95, Calcium Level 8.7, Calcium ( Send out) [Pending], Phosphorus Level 4.5, Magnesium Level 2.6H, Iron Level 90, Total Iron Binding Capacity 164L, Percent Iron Saturation 55H, Unsaturated Iron Binding 74L, Ferritin 819H, Total Bilirubin 0.5, Direct Bilirubin 0.2, Aspartate Amino Transf (AST/SGOT) 42H, Alanine Aminotransferase (ALT/SGPT) 45, Alkaline Phosphatase 228H, Total Protein 8.8H, Albumin 2.8L, Vitamin D 25- Hydroxy [Pending], 25-Hydroxy Vitamin D2 [Pending], 25-Hydroxy Vitamin D3 [ Pending], Parathyroid Hormone (Intact) [Pending], Hepatitis B Surface Antigen [ Pending] 05/27/20 05:56: POC Whole Blood Glucose 109H 05/27/20 11:29: POC Whole Blood Glucose 129H Height (Feet): 5 Height (Inches): 8.00 Weight (Pounds): 143 Aftab Arnold MD May 27, 2020 13:35
--- NOTE | 2020-05-27 14:29 | NUR ---
CASE MANAGEMENT: INITIAL REVIEW 85YR OLD FEMALE BIBA FROM [facility] CC: GENERAL COMPLAINT SI: HYPOTENSIVE . END STAGE RENAL DISEASE . LACTIC ACIDOSIS 97.8 90 18 120/80 100% ON RA NA+ 135 CL-97 BUN/CREAT 41/3.8 CA+ 7.9 LACTIC ACID 2.10 IS: IVF NS BOLUS X1 CHEST X-RAY -No evidence of acute pulmonary disease \: 2E TELE UNIT DCP:CVT WHEN STABLE PLAN: MONITOR BP CASE MANAGEMENT: REVIEW 05/27/20 SI: HYPOTENSIVE . END STAGE RENAL DISEASE . LACTIC ACIDOSIS 97.3 74 20 121/56 97% ON RA BUN/CREAT 89/6.6 IS: VANCOMYCIN HCI PO Q6HR HEPARIN SQ BID \: 2E TELE UNIT DCP:CVT WHEN STABLE PLAN: EVAL GTUBE GI CONSULT SPEECH EVAL + C-DIFF CARDIO EVAL ~ EPISODE OF TRIGEMINY
--- NOTE | 2020-05-27 14:55 | Cardiac Electrophysiology PN ---
Subjective Subjective [id number] Objective Last 24 Hour Vital Signs Date Time Temp Pulse Resp B/P (MAP) Pulse Ox O2 Delivery O2 Flow Rate FiO2 05/27/20 12:00 97.3 74 20 121/56 (77) 97 05/27/20 11:29 77 05/27/20 09:00 Room Air 05/27/20 08:00 97.3 75 20 118/55 (76) 95 05/27/20 07:40 78 05/27/20 04:00 81 05/27/20 04:00 98.8 81 17 116/62 (80) 95 05/27/20 00:00 99.5 77 16 114/65 (81) 98 05/27/20 00:00 77 05/26/20 22:57 77 05/26/20 21:00 Room Air 05/26/20 20:00 75 05/26/20 20:00 98.6 95 16 113/58 (76) 95 05/26/20 16:00 97.2 79 20 123/45 (71) 97 05/26/20 15:36 77 Intake and Output 05/26/20 05/27/20 19:00 07:00 Intake Total 710 ml Balance 710 ml Free Water 400 ml Tube Feeding 310 ml # Voids 2 1 # Bowel Movements 5 1 Laboratory Tests Test 05/26/20 15:51 05/26/20 20:08 05/27/20 05:30 05/27/20 05:56 POC Whole Blood Glucose Pending Pending 109 MG/DL (74-106) H White Blood Count 4.9 K/UL (4.8-10.8) Red Blood Count 4.95 M/UL (4.20-5.40) Hemoglobin 13.0 G/DL (12.0-16.0) Hematocrit 45.1 % (37.0-47.0) Mean Corpuscular Volume 91 FL (80-99) Mean Corpuscular Hemoglobin 26.3 PG (27.0-31.0) L Mean Corpuscular Hemoglobin Concent 28.8 G/DL (32.0-36.0) L Red Cell Distribution Width 20.4 % (11.6-14.8) H Platelet Count 170 K/UL (150-450) Mean Platelet Volume 7.7 FL (6.5-10.1) Neutrophils (%) (Auto) 67.7 % (45.0-75.0) Lymphocytes (%) (Auto) 20.5 % (20.0-45.0) Monocytes (%) (Auto) 7.6 % (1.0-10.0) Eosinophils (%) (Auto) 3.4 % (0.0-3.0) H Basophils (%) (Auto) 0.9 % (0.0-2.0) Sodium Level 139 MMOL/L (136-145) Potassium Level 4.5 MMOL/L (3.5-5.1) Chloride Level 99 MMOL/L (98-107) Carbon Dioxide Level 28 MMOL/L (21-32) Anion Gap 12 mmol/L (5-15) Blood Urea Nitrogen 89 mg/dL (7-18) H Creatinine 6.6 MG/DL (0.55-1.30) H Estimat Glomerular Filtration Rate 7.3 mL/min (>60) Glucose Level 95 MG/DL (74-106) Calcium Level 8.7 MG/DL (8.5-10.1) Calcium (Send out) Pending Phosphorus Level 4.5 MG/DL (2.5-4.9) Magnesium Level 2.6 MG/DL (1.8-2.4) H Iron Level 90 ug/dL (50-175) Total Iron Binding Capacity 164 ug/dL (250-450) L Percent Iron Saturation 55 % (15-50) H Unsaturated Iron Binding 74 ug/dL (112-346) L Ferritin 819 NG/ML (8-388) H Total Bilirubin 0.5 MG/DL (0.2-1.0) Direct Bilirubin 0.2 MG/DL (0.0-0.3) Aspartate Amino Transf (AST/SGOT) 42 U/L (15-37) H Alanine Aminotransferase (ALT/SGPT) 45 U/L (12-78) Alkaline Phosphatase 228 U/L (46-116) H Total Protein 8.8 G/DL (6.4-8.2) H Albumin 2.8 G/DL (3.4-5.0) L Vitamin D 25-Hydroxy Pending 25-Hydroxy Vitamin D2 Pending 25-Hydroxy Vitamin D3 Pending Parathyroid Hormone (Intact) Pending Hepatitis B Surface Antigen Pending Test 05/27/20 11:29 POC Whole Blood Glucose 129 MG/DL (74-106) H Microbiology Date/Time Source Procedure Growth Status 05/25/20 17:10 Blood Blood Culture - Preliminary NO GROWTH AFTER 24 HOURS Resulted 05/25/20 17:00 Blood Blood Culture - Preliminary NO GROWTH AFTER 24 HOURS Resulted 05/25/20 15:30 Nasal Nares MRSA Culture - Final NO METHICILLIN RESISTANT STAPH AUREUS... Complete 05/25/20 15:25 Nasopharynx SARS-CoV-2 RdRp Gene Assay - Final Complete 05/26/20 06:30 Stool Clostridium difficile Toxin Assay - Final Complete 05/25/20 15:30 Rectum - Final NO CARBAPENEM-RESISTANT ENTEROBACTERI... Complete 05/25/20 15:30 Rectum VRE Culture - Final NO VANCOMYCIN RESISTANT ENTEROCOCCUS ... Complete Will Osborne MD May 27, 2020 14:55
--- NOTE | 2020-05-27 15:55 | NUR ---
NURSE NOTES: Called [facility] Nephrology for tomorrow's dialysis. Spoke with
[2020-05-27 16:00] VITALS: BP 100/55
--- NOTE | 2020-05-27 18:00 | NUR ---
NURSE NOTES:WOUND CARE NOTES: Pt presented on admission with obesity, Bilat AKA, Pressure Injuries. Mixed hyperpigmentation and pink epithelial with historical scar noted to Sacrum,R and L Buttocks. Areas of shearing noted to R and L gluteal clefts with small amt sanguineous exudate. Hyperpigmentation with historical scar noted to R and L ischial tuberosities. Full thickness Pressure injury within scarred area of R ischium(L)1cm x (W)1.6cm. Base of wound is beefy red and moist. Small amt serosanguineous exudate noted. In close proximity R ischial wound is an Unstageable Pressure injury(L02cm x (W02.7cm . Base of wound iis 75% dry eschar with surrounding pink epithelial. No odor or exudate noted . Hyperpigmentation noted to posterior aspects of both upper thighs. NO evidence of skin breakdown noted to Both AKA stumps. Generalized dry skin with scaly plaques. Tx.Plan: Cleanse wounds R ischium,and R upper thigh with Saline. Apply TheraHoney to each wound. Apply Moisture Barrier Paste periwound. Cover with Optifoam drsg. Change every 3days and prn. Apply Moisture Barrier Paste to buttocks,Ischium and posterior aspects of both upper thighs.Cover each area with Optifoam drsgs. Change every 3 days and prn. Apply Phytoplex Skin Nourishing Lotion to dry skin Daily and prn. Reposition at least every 2hours or as tolerated. Off-load heels with Pillow. APM/TIAGO Mattress overlay.
--- NOTE | 2020-05-27 19:15 | Consultation ---
DATE OF CONSULTATION: 05/27/2020 CARDIOLOGY CONSULTATION CONSULTING PHYSICIAN: Will Osborne MD. REFERRING PHYSICIAN: Pam Alcantar MD. REASON FOR CONSULTATION: Hypotension. HISTORY OF PRESENT ILLNESS: Patient is an 85-year-old lady with history of hypertension, end-stage renal disease, on hemodialysis, who lives in [facility], who was brought in for hypotension, blood pressure in the 70s. Patient was hypotensive at dialysis center, received 500 mL bolus of IV fluids. Patient has history of bilateral above-knee amputation as well as G-tube placement and has upper extremity contractures and is nonverbal. REVIEW OF SYSTEMS: Cannot be obtained. PAST MEDICAL HISTORY: As mentioned above. FAMILY HISTORY: Noncontributory. SOCIAL HISTORY: She is a residential resident. Does not smoke or drink alcohol. PHYSICAL EXAMINATION: VITAL SIGNS: Show blood pressure of 121/56, pulse 74, respirations 18, temperature 97.3. HEAD AND NECK: Showed no JVD. LUNGS: Clear. CARDIOVASCULAR: Shows regular S1 and S2 with no gallop. ABDOMEN: Soft and status post G-tube. EXTREMITIES: Bilateral above-knee amputation. Upper extremities are contracted. DIAGNOSTIC AND LABORATORY DATA: Her telemetry strip shows ventricular trigeminy. Her EKG shows sinus rhythm with ventricular trigeminy. Labs show white count of 4.9 hematocrit of 13, hematocrit of 45, and platelet count is 170. Sodium is 139, potassium 4.5, BUN of 89, creatinine 6.6, and glucose 7.3. Her COVID is negative. ASSESSMENT AND PLAN: 1. Hypotension post dialysis. Likely due to volume depletion. We will completely rule out IA protocol. Get an echocardiogram for further evaluation. 2. Ventricular trigeminy. We will get an echocardiogram and completely rule out IA protocol. 3. End-stage renal disease, on hemodialysis. 4. G-tube feeding. 5. Bilateral upper extremity contractions. 6. History of CVA and currently nonverbal. Thank you very much for allowing me to participate in the care of this patient. Please do not hesitate to contact me for any questions regarding my evaluation. Will Osborne M.D. DR: IRENE JOB#: [id number] CC:
--- NOTE | 2020-05-27 19:28 | NUR ---
NURSE NOTES: Hand-off report received by Olga Paulino RN. Patient in stable condition, no acute signs of distress noted. Patient on room air, breathing is unlabored and even, lungs clear to auscultation. Alert and oriented x0, nonverbal. IV is intact, no redness, no leaking, no infiltration, saline locked and flushing well. J-tube aspirated for residual (< 3mL), flushed 200 mL water, Nepro 1.8 running at goal 40mL). Call light within reach, bed alarm activated, bed in lowest and locked position, hall monitor in place.
--- NOTE | 2020-05-27 19:28 | NUR ---
HAND-OFF: Report given to CATA Patel. Pt in stable condition, endorsed plan of care.
[2020-05-27 20:00] VITALS: BP 116/59
[2020-05-28] VITALS: BP 139/58
--- NOTE | 2020-05-28 00:33 | NUR ---
NURSE NOTES: Notified Dr. Osborne, regarding sinus rhythm with PVCs and that patient is asymptomatic with stable vital signs. Awaiting orders.
[2020-05-28] MEDS: Vancomycin oral 125mg/2.5ml ORAL SCH ×4 (00:57→17:23)
--- NOTE | 2020-05-28 03:00 | NUR ---
NURSE NOTES: No new orders per Dr. Osborne at this time.
--- NOTE | 2020-05-28 03:30 | NUR ---
NURSE NOTES: Patient received partial bed bath. Checked for J-tube residual which is < 5mL, flushed with 200mL water. No signs of aspiration noted. No acute signs of distress noted. Nepro 1.8 running at 40mL.
[2020-05-28 04:00] VITALS: BP 130/56
[2020-05-28] MEDS ORDERED: Heparin Sod 1000 units/ml 10ml IV PRN (06:00)
[2020-05-28] MEDS: NovoLOG Insulin Flexpen SUBQ SCH ×3 (06:13→16:30)
--- NOTE | 2020-05-28 06:59 | NUR ---
HAND-OFF: Report given to Olga Paulino RN. Patient in stable condition. Call light within reach, bed alarm activated, bed in lowest and locked position, awake overnight monitor in place.
[2020-05-28 07:06] LABS: BASOPHILS % (AUTO) 0.7 % (0.0-2.0); EOSINOPHILS % (AUTO) 6.8 % (0.0-3.0); HEMATOCRIT 41.3 % (37.0-47.0); HEMOGLOBIN 12.2 G/DL (12.0-16.0); LYMPHOCYTES % (AUTO) 18.9 % (20.0-45.0); MEAN CORPUSCULAR VOLUME 90 FL (80-99); MONOCYTES % (AUTO) 7.5 % (1.0-10.0); PLATELET COUNT 140 K/UL (150-450); RED CELL DISTRIBUTION WIDTH 19.9 % (11.6-14.8); WHITE BLOOD COUNT 4.4 K/UL (4.8-10.8)
[2020-05-28 07:15] LABS: ANION GAP 11 mmol/L (5-15); BLOOD UREA NITROGEN 111 mg/dL (7-18); CALCIUM 8.3 MG/DL (8.5-10.1); CARBON DIOXIDE 28 MMOL/L (21-32); CHLORIDE 98 MMOL/L (98-107); CREATININE 8.1 MG/DL (0.55-1.30); PHOSPHORUS 4.9 MG/DL (2.5-4.9); POTASSIUM 4.7 MMOL/L (3.5-5.1); SODIUM 137 MMOL/L (136-145)
--- NOTE | 2020-05-28 07:38 | NUR ---
NURSE NOTES: Received report from CATA Patel. Observed pt sleeping, no s/sx of acute distress, breathing even and unlabored in RA. J-tube intact, running feeding as ordered. IV site patent and asymptomatic. Bed on lowest position, call light within reach. Will continue plan of care.
[2020-05-28 08:00] VITALS: BP 112/50
--- NOTE | 2020-05-28 08:44 | Consultation ---
DATE OF CONSULTATION: CONSULTING PHYSICIAN: Ezequiel Perales MD REFERRING PHYSICIAN: Pam Alcantar MD CHIEF COMPLAINT: Malfunctioning J-tube. HISTORY OF PRESENT ILLNESS: This is an 85-year-old female, most of the history per chart, was from a intermediate with end-stage renal disease, on dialysis, history of peripheral vascular disease, bilateral lower extremity amputations. Apparently, the patient was hypotensive while dialysis, got a bolus and was transferred to the hospital for evaluation. PAST MEDICAL HISTORY: 1. Diabetes. 2. Hypertension. 3. End-stage renal disease, on hemodialysis. 4. Hyperlipidemia. 5. Peripheral vascular disease with bilateral lower extremities AKAs. 6. History of CVA and DVT. 7. Chronic anemia. 8. Gout. 9. History of childhood TB. 10. Functional quadriplegia. 11. History of upper GI bleeding. ALLERGIES: To gabapentin. MEDICATIONS: Please see medication reconciliation list. SOCIAL HISTORY: No history of tobacco, alcohol, or drug abuse. PAST SURGICAL HISTORY: 1. The patient had right arm AV graft formation for dialysis. 2. Bilateral above the knee amputations. REVIEW OF SYSTEMS: Unable to obtain. FAMILY HISTORY: Noncontributory. PHYSICAL EXAMINATION: VITAL SIGNS: Temperature 97.3, pulse 74, respirations 20, blood pressure is 121/66. HEENT: Normocephalic, atraumatic. Mild pale conjunctivae. NECK: Supple. No evidence of obvious lymphadenopathy. CARDIOVASCULAR: Regular rate and rhythm. Plus S1-S2. LUNGS: Decreased breath sounds bilaterally based on the supine exam. ABDOMEN: Soft and nontender. There is a J-tube in place functioning. Abdomen is soft. No rebound. No peritoneal sign. EXTREMITIES: Bilateral AKAs. LABORATORY DATA: White count is 4.9, hemoglobin 13, hematocrit 45, and platelet count is 170. Chem-7, sodium is 139, potassium 4.9, BUN is 89, and creatinine 6.6. ASSESSMENT AND PLAN: This is an 85-year-old female with numerous medical problems as dictated above. At this time, GI standpoint is stable. J-tube is functioning. I discussed with the nurses at the bedside, I explained to them this is a type of G-tube and as long as it is patent, is working and usable, so we are going to reduce the at the goal of 40 mL an hour per G-tube. I want to thank Dr. Alcantar for this kind referral. Ezequiel Richard Perales DR: Maximus JOB#: [id number] CC:
[2020-05-28] MEDS: Heparin 5000 units/ml inj SUBQ SCH (09:00)
[2020-05-28] MEDS: Miralax 17gm pkt GT SCH (09:00)
--- NOTE | 2020-05-28 09:14 | General Progress Note ---
Assessment/Plan Status: stable Assessment/Plan: 1. C diff toxin positive - cont vanco 125 mg po q 6 hrs x 10 days. D/C [facility]. 2. episode of Trigemy back to sinus rhythm. tree chipper following. 3. End-stage renal disease, on hemodialysis. consult for HD by Dr. Aftab montoya. 4. Dysphagia s/p G/J tube placement - GI saw patient and cont with same tube feeding. 5. Diabetes type 2. on sliding scale insulin. 6. Gout. stable. 7. History of CVA. 8. History of peripheral vascular disease and knee amputation. 9. History of DVT previously. Subjective Date patient seen: May 28, 2020 Time patient seen: 08:50 Constitutional: Reports: no symptoms HEENT: Reports: no symptoms Cardiovascular: Reports: no symptoms Respiratory: Reports: no symptoms Gastrointestinal/Abdominal: Reports: no symptoms Genitourinary: Reports: no symptoms Neurologic/Psychiatric: Reports: no symptoms Endocrine: Reports: no symptoms Hematologic/Lymphatic: Reports: no symptoms Allergies: Coded Allergies: GABAPENTIN (Unverified Allergy, Unknown, 06/14/19) Subjective she is doing well. no sob or chest pain. afebrile. no diarrhea. Objective Last 24 Hour Vital Signs Date Time Temp Pulse Resp B/P (MAP) Pulse Ox O2 Delivery O2 Flow Rate FiO2 05/28/20 08:00 96.9 68 18 112/50 (70) 97 05/28/20 04:00 97.5 72 18 130/56 (80) 95 05/28/20 04:00 69 05/28/20 00:00 97.5 73 19 139/58 (85) 94 05/28/20 00:00 74 05/27/20 21:00 Room Air 05/27/20 20:00 98.9 67 19 116/59 (78) 96 05/27/20 20:00 67 05/27/20 16:00 97.3 68 20 100/55 (70) 95 05/27/20 15:17 73 05/27/20 12:00 97.3 74 20 121/56 (77) 97 05/27/20 11:29 77 Intake and Output 05/27/20 05/28/20 19:00 07:00 Intake Total 245 ml 640 ml Balance 245 ml 640 ml Intake Oral 5 ml Free Water 200 ml 200 ml Tube Feeding 40 ml 440 ml # Bowel Movements 1 2 Laboratory Tests 05/27/20 11:29: POC Whole Blood Glucose 129H 05/27/20 15:35: Troponin I 0.051 05/27/20 17:20: POC Whole Blood Glucose [Pending] 05/27/20 21:49: POC Whole Blood Glucose [Pending] 05/28/20 06:09: White Blood Count 4.4L, Red Blood Count 4.60, Hemoglobin 12.2, Hematocrit 41.3, Mean Corpuscular Volume 90, Mean Corpuscular Hemoglobin 26.5L, Mean Corpuscular Hemoglobin Concent 29.6L, Red Cell Distribution Width 19.9H, Platelet Count 140L , Mean Platelet Volume 7.6, Neutrophils (%) (Auto) 66.0, Lymphocytes (%) (Auto) 18.9L, Monocytes (%) (Auto) 7.5, Eosinophils (%) (Auto) 6.8H, Basophils (%) ( Auto) 0.7, Sodium Level 137, Potassium Level 4.7, Chloride Level 98, Carbon Dioxide Level 28, Anion Gap 11, Blood Urea Nitrogen 111H, Creatinine 8.1H, Estimat Glomerular Filtration Rate 5.7, Glucose Level 91, Calcium Level 8.3L, Phosphorus Level 4.9 Height (Feet): 5 Height (Inches): 8.00 Weight (Pounds): 143 General Appearance: alert EENT: normal ENT inspection Neck: non-tender, supple Cardiovascular: normal rate, regular rhythm Respiratory/Chest: lungs clear, normal breath sounds Abdomen: soft Extremities: non-tender Neurologic: alert, responsive Skin: warm/dry Pam Alcantar MD May 28, 2020 09:14
[2020-05-28] MEDS: Ferrous Sulfate 300 MG/5 ML UDC GT SCH (09:15)
[2020-05-28] MEDS: Nephrovite tab (Rena-Vite) GT SCH (09:15)
[2020-05-28] MEDS: timoloL maleate 0.5% Op Soln 2.5ml BOTH EYES SCH ×2 (09:31→17:22)
[2020-05-28] MEDS: Brimonidine 0.2% Opth Sol BOTH EYES SCH ×2 (09:31→17:22)
--- NOTE | 2020-05-28 09:44 | General Progress Note ---
Assessment/Plan Status: stable Assessment/Plan: 1. Diabetes. 2. Hypertension. 3. End-stage renal disease, on hemodialysis. 4. Hyperlipidemia. 5. Peripheral vascular disease with bilateral lower extremities AKAs. 6. History of CVA and DVT. 7. Chronic anemia. 8. Gout. 9. History of childhood TB. 10. Functional quadriplegia. 11. History of upper GI bleeding. JTF running no GIB pending HD for today pending dc Subjective ROS Limited/Unobtainable: No Allergies: Coded Allergies: GABAPENTIN (Unverified Allergy, Unknown, 06/14/19) Objective Last 24 Hour Vital Signs Date Time Temp Pulse Resp B/P (MAP) Pulse Ox O2 Delivery O2 Flow Rate FiO2 05/28/20 08:00 96.9 68 18 112/50 (70) 97 05/28/20 04:00 97.5 72 18 130/56 (80) 95 05/28/20 04:00 69 05/28/20 00:00 97.5 73 19 139/58 (85) 94 05/28/20 00:00 74 05/27/20 21:00 Room Air 05/27/20 20:00 98.9 67 19 116/59 (78) 96 05/27/20 20:00 67 05/27/20 16:00 97.3 68 20 100/55 (70) 95 05/27/20 15:17 73 05/27/20 12:00 97.3 74 20 121/56 (77) 97 05/27/20 11:29 77 Intake and Output 05/27/20 05/28/20 19:00 07:00 Intake Total 245 ml 640 ml Balance 245 ml 640 ml Intake Oral 5 ml Free Water 200 ml 200 ml Tube Feeding 40 ml 440 ml # Bowel Movements 1 2 Laboratory Tests 05/27/20 11:29: POC Whole Blood Glucose 129H 05/27/20 15:35: Troponin I 0.051 05/27/20 17:20: POC Whole Blood Glucose [Pending] 05/27/20 21:49: POC Whole Blood Glucose [Pending] 05/28/20 06:09: White Blood Count 4.4L, Red Blood Count 4.60, Hemoglobin 12.2, Hematocrit 41.3, Mean Corpuscular Volume 90, Mean Corpuscular Hemoglobin 26.5L, Mean Corpuscular Hemoglobin Concent 29.6L, Red Cell Distribution Width 19.9H, Platelet Count 140L , Mean Platelet Volume 7.6, Neutrophils (%) (Auto) 66.0, Lymphocytes (%) (Auto) 18.9L, Monocytes (%) (Auto) 7.5, Eosinophils (%) (Auto) 6.8H, Basophils (%) ( Auto) 0.7, Sodium Level 137, Potassium Level 4.7, Chloride Level 98, Carbon Dioxide Level 28, Anion Gap 11, Blood Urea Nitrogen 111H, Creatinine 8.1H, Estimat Glomerular Filtration Rate 5.7, Glucose Level 91, Calcium Level 8.3L, Phosphorus Level 4.9 Height (Feet): 5 Height (Inches): 8.00 Weight (Pounds): 143 General Appearance: no apparent distress EENT: normal ENT inspection Neck: supple Cardiovascular: normal rate Respiratory/Chest: decreased breath sounds Abdomen: normal bowel sounds, non tender, soft Ezequiel Perales MD May 28, 2020 09:44
--- NOTE | 2020-05-28 10:07 | NUR ---
*-*DISCHARGER PLANNING*-* PATIENT HAS BEEN REFERRED BACK [facility]: [facility] P: [phone]
--- NOTE | 2020-05-28 10:55 | NUR ---
RD ASSESSMENT & RECOMMENDATIONS SEE CARE ACTIVITY FOR COMPLETE ASSESSMENT DAILY ESTIMATED NEEDS: Needs based on ESRD/HD / 60.7kg adj for BL AKA 25-35 kcals/kg 5274-1325 total kcals 1.25-1.8 g protein/kg 76-109 g total protein Fluid per MD on HD mL/kg . total fluid mLs NUTRITION DIAGNOSIS: * Increased kcal/pro intake needs R/T renal dysfunction, wound healing as evidenced by ESRD dx, on HD. admitted w/ advanced wounds including full thickness wounds x3, refer to WC eval : CURRENT TF:Nepro @40 PO DIET RECOMMENDATIONS: ENTERAL NUTRITION RECOMMENDATIONS: Nepro @ 40ml/hr x 24 hrs + Prosource x1 daily to provide 960ml, 1728kcal, 78g + 11g pro, 698ml free water * Maintain current TF * Add Prosource x1 daily to better meet est pro needs * HOB over 30 degrees/ water flush per MD. ADDITIONAL RECOMMENDATIONS: * Calibrated dry wt post HD * Add prosource 1 pack daily (11g pro) to better meet est pro needs * Wound healing: Add Vit C 500mg QD Brian BID via PEG .
[2020-05-28 12:00] VITALS: BP 121/56
--- NOTE | 2020-05-28 13:54 | Nephrology Progress Note ---
Assessment/Plan Problem List: (1) ESRD (end stage renal disease) on dialysis (2) Decubitus skin ulcer (3) DM (diabetes mellitus) (4) C. difficile colitis (5) Dementia (6) Secondary hyperparathyroidism of renal origin Plan HD as tolerated PO Lydia Discussed with HD RN Daily Nephrovite Subjective Subjective pt was seen on HD Objective Objective Last 24 Hour Vital Signs Date Time Temp Pulse Resp B/P (MAP) Pulse Ox O2 Delivery O2 Flow Rate FiO2 05/28/20 12:00 97.5 63 20 121/56 (77) 96 05/28/20 09:00 Room Air 05/28/20 08:00 96.9 68 18 112/50 (70) 97 05/28/20 07:36 70 05/28/20 04:00 97.5 72 18 130/56 (80) 95 05/28/20 04:00 69 05/28/20 00:00 97.5 73 19 139/58 (85) 94 05/28/20 00:00 74 05/27/20 21:00 Room Air 05/27/20 20:00 98.9 67 19 116/59 (78) 96 05/27/20 20:00 67 05/27/20 16:00 97.3 68 20 100/55 (70) 95 05/27/20 15:17 73 Intake and Output 05/27/20 05/28/20 19:00 07:00 Intake Total 245 ml 640 ml Balance 245 ml 640 ml Intake Oral 5 ml Free Water 200 ml 200 ml Tube Feeding 40 ml 440 ml # Bowel Movements 1 2 Laboratory Tests 05/27/20 15:35: Troponin I 0.051 05/27/20 17:20: POC Whole Blood Glucose [Pending] 05/27/20 21:49: POC Whole Blood Glucose [Pending] 05/28/20 06:09: White Blood Count 4.4L, Red Blood Count 4.60, Hemoglobin 12.2, Hematocrit 41.3, Mean Corpuscular Volume 90, Mean Corpuscular Hemoglobin 26.5L, Mean Corpuscular Hemoglobin Concent 29.6L, Red Cell Distribution Width 19.9H, Platelet Count 140L , Mean Platelet Volume 7.6, Neutrophils (%) (Auto) 66.0, Lymphocytes (%) (Auto) 18.9L, Monocytes (%) (Auto) 7.5, Eosinophils (%) (Auto) 6.8H, Basophils (%) ( Auto) 0.7, Sodium Level 137, Potassium Level 4.7, Chloride Level 98, Carbon Dioxide Level 28, Anion Gap 11, Blood Urea Nitrogen 111H, Creatinine 8.1H, Estimat Glomerular Filtration Rate 5.7, Glucose Level 91, Calcium Level 8.3L, Phosphorus Level 4.9 Height (Feet): 5 Height (Inches): 8.00 Weight (Pounds): 143 Cardiovascular: normal rate Respiratory/Chest: lungs clear Aftab Arnold MD May 28, 2020 13:54
[2020-05-28 16:00] VITALS: BP 112/43
--- NOTE | 2020-05-28 16:00 | NUR ---
NURSE NOTES: Receive a call from Dr Alcantar and Case Mngr asking if pt is cleared by Dr Osborne. Awaiting for Dr Osborne's response and clearance to DC the pt.
--- NOTE | 2020-05-28 16:30 | NUR ---
NURSE NOTES: Pt finished with HD. BP was 106/50, 500ml out.
--- NOTE | 2020-05-28 16:47 | Cardiac Electrophysiology PN ---
Assessment/Plan Assessment/Plan 1. Hypotension post dialysis. Likely due to volume depletion. Ruled out for MO and echocardiogram Nl EF 2. Ventricular trigeminy. Echocardiogram Nl EF and no recurrence 3. End-stage renal disease, on hemodialysis. 4. G-tube feeding. 5. Bilateral upper extremity contractions. 6. History of CVA and currently nonverbal. DW RN OK to DC Subjective Subjective No new events . GT feeding and C Diff is positive Objective Last 24 Hour Vital Signs Date Time Temp Pulse Resp B/P (MAP) Pulse Ox O2 Delivery O2 Flow Rate FiO2 05/28/20 12:00 97.5 63 20 121/56 (77) 96 05/28/20 11:42 63 05/28/20 09:00 Room Air 05/28/20 08:00 96.9 68 18 112/50 (70) 97 05/28/20 07:36 70 05/28/20 04:00 97.5 72 18 130/56 (80) 95 05/28/20 04:00 69 05/28/20 00:00 97.5 73 19 139/58 (85) 94 05/28/20 00:00 74 05/27/20 21:00 Room Air 05/27/20 20:00 98.9 67 19 116/59 (78) 96 05/27/20 20:00 67 Intake and Output 05/27/20 05/28/20 19:00 07:00 Intake Total 245 ml 640 ml Balance 245 ml 640 ml Intake Oral 5 ml Free Water 200 ml 200 ml Tube Feeding 40 ml 440 ml # Bowel Movements 1 2 Laboratory Tests Test 05/27/20 17:20 05/27/20 21:49 05/28/20 06:09 POC Whole Blood Glucose Pending Pending White Blood Count 4.4 K/UL (4.8-10.8) L Red Blood Count 4.60 M/UL (4.20-5.40) Hemoglobin 12.2 G/DL (12.0-16.0) Hematocrit 41.3 % (37.0-47.0) Mean Corpuscular Volume 90 FL (80-99) Mean Corpuscular Hemoglobin 26.5 PG (27.0-31.0) L Mean Corpuscular Hemoglobin Concent 29.6 G/DL (32.0-36.0) L Red Cell Distribution Width 19.9 % (11.6-14.8) H Platelet Count 140 K/UL (150-450) L Mean Platelet Volume 7.6 FL (6.5-10.1) Neutrophils (%) (Auto) 66.0 % (45.0-75.0) Lymphocytes (%) (Auto) 18.9 % (20.0-45.0) L Monocytes (%) (Auto) 7.5 % (1.0-10.0) Eosinophils (%) (Auto) 6.8 % (0.0-3.0) H Basophils (%) (Auto) 0.7 % (0.0-2.0) Sodium Level 137 MMOL/L (136-145) Potassium Level 4.7 MMOL/L (3.5-5.1) Chloride Level 98 MMOL/L (98-107) Carbon Dioxide Level 28 MMOL/L (21-32) Anion Gap 11 mmol/L (5-15) Blood Urea Nitrogen 111 mg/dL (7-18) H Creatinine 8.1 MG/DL (0.55-1.30) H Estimat Glomerular Filtration Rate 5.7 mL/min (>60) Glucose Level 91 MG/DL (74-106) Calcium Level 8.3 MG/DL (8.5-10.1) L Phosphorus Level 4.9 MG/DL (2.5-4.9) Microbiology Date/Time Source Procedure Growth Status 05/25/20 17:10 Blood Blood Culture - Preliminary NO GROWTH AFTER 48 HOURS Resulted 05/25/20 17:00 Blood Blood Culture - Preliminary NO GROWTH AFTER 48 HOURS Resulted 05/26/20 06:30 Stool Clostridium difficile Toxin Assay - Final Complete Objective HEAD AND NECK: No JVD. LUNGS: Clear. CARDIOVASCULAR: Regular S1 and S2 with no gallop. ABDOMEN: Soft and status post G-tube. EXTREMITIES: Bilateral above-knee amputation. Upper extremities are contracted. Will Osborne MD May 28, 2020 16:47
--- NOTE | 2020-05-28 17:20 | NUR ---
*-*DISCHARGER PLANNED*-* PATIENT HAS BEEN ACCEPTED AND WILL BE DISCHARGED BACK TO: [facility] P: [phone] FOR NURSE TO NURSE REPORT ROOM# 12.[facility] TRAN[facility]ORTATION SET FOR 5:45PM S/W [facility] [id number] S/W PATIENTS SON, MARGUERITE RUVALCABA, WHO IS IN AGREEMENT WITH DISCHARGE PLAN.
[2020-05-28] MEDS ORDERED: VANCOMYCIN HCL125 MG JT (18:00)
[2020-05-28] MEDS ORDERED: VANCOMYCIN HCL125 MG PO (18:01)
--- NOTE | 2020-05-28 18:52 | NUR ---
NURSE NOTES: Pt left the unit in stable condition, accompanied by ambulance personnel. No s/sx of acute distress. Report given to CATA Johnson of [facility]. Explained to continue SNF meds, continue SNF j-tube feeding at the rate of 40cc/hr, and to continue vancomycin oral (j-tube) 125mg q6h for 8 more days. RN verbalized understanding. IV, tele monitor, and ID band removed, no bleeding noted. Pt does not have belongings. Wound photos taken before DC'd. Pt was swabbed for MRSA (nares), r/t pt on HD during hospitalization, per protocol.
--- NOTE | 2020-05-30 15:24 | Discharge Summary ---
Discharge Summary Discharge Summary _ DATE OF ADMISSION: 05/25/2020 DATE OF DISCHARGE: 05/28/2020 DISCHARGED BY: Dr. Alcantar REASON FOR ADMISSION: 85 years old female, resident of correction facility, with past medical history of end-stage renal disease, on hemodialysis, hypertension, diabetes mellitus, GERD, history of CVA, hyperlipidemia, anemia, was sent from the dialysis due to hypotension. Patient received fluid bolus enroute to the hospital, and blood pressure improved. Laboratory work-up revealed no leukocytosis, stable hemoglobin, hematocrit , stable electrolytes. BUN 41, creatinine 3.8, consistent with known history of end-stage renal disease. Glucose 92. AST 45, ALT 57. Troponin 0.052. EKG revealed sinus rhythm, no acute ischemic changes. Albumin 3.0. Lactic acid 2.1. Chest x-ray demonstrated no evidence of acute pulmonary disease. Patient subsequently admitted for hypotension and lactic acidosis. CONSULTANTS: toolroom machinist Dr. Escudero GI specialist Dr. Perales hand dry cleaner Dr. Arnold HOSPITAL COURSE: Patient admitted to monitored floor. Home medication continued. Dialysis provided as per hand dry cleaner recommendations with close monitoring of volumes , renal parameters and electrolytes. Blood sugar was managed with sliding scale of insulin. SARS COV 2 by PCR was negative. Blood cultures were negative. Formation Fracturing Operator closely followed. Repeated troponin was negative. Serial troponin were negative. EKG revealed no acute ischemic changes. Patient was ruled out for acute myocardial infarction. Echocardiogram revealed preserved ejection fraction. No evidence of wall motion abnormality. Per toolroom machinist, hypotension was likely due to volume depletion after dialysis. Patient demonstrated episode of ventricular trigeminy. No further recurrence. Patient developed diarrhea. Stool for C. difficile was positive. Patient started on oral Vanco and lactobacilli. Strict aspiration precaution maintained. G-tube feeding continued. Hemoglobin and hematocrit were closely monitored with goal to keep hemoglobin above 7., remained at baseline , and prior to discharge hemoglobin 12.2, hematocrit 41.3. DVT and GI prophylaxis provided. Patient clinically stabilized and was ready for transfer back to correction facility. Patient will need to continue oral vancomycin to complete the course. FINAL DIAGNOSES: Hypotension postdialysis , likely due to volume depletion End-stage renal disease on hemodialysis C. difficile colitis Ventricular trigeminy - no further occurrence Diabetes mellitus Dysphagia, feeding by G-tube History of CVA Secondary hyperparathyroidism of renal origin Functional quadriplegia Gout Hyperlipidemia DISCHARGE MEDICATIONS: See Medication Reconciliation list. DISCHARGE INSTRUCTIONS: Patient was discharged to the correction facility. Follow up with medical doctor at the facility. I have been assigned to dictate discharge summary for this account. I was not involved in the patient's management. Mai De NP May 30, 2020 15:24
== END 2020-05-28 18:30 | DRG 640 ==
LOC: EDBD 15:09 → EMR 15:39 → EDBEDREQ 16:15 → 2E 17:40 → OBSVTOIN 17:40 → 2E 17:40 → UNDOADMIN 17:40 → EDBEDREQ 19:45
PROC: 5A1D70Z Performance of Urinary Filtration, Intermittent, Less than 6 Hours Per Day (ICD-10-PCS; principal; 2020-05-28)
DX: E86.9 Volume depletion, unspecified (principal); N18.6 End stage renal disease; R53.2 Functional quadriplegia; I12.0 Hypertensive chronic kidney disease with stage 5 chronic kidney disease or end stage renal disease; A04.72 Enterocolitis due to Clostridium difficile, not specified as recurrent; Z43.1 Encounter for attention to gastrostomy; N25.81 Secondary hyperparathyroidism of renal origin; I95.89 Other hypotension; E87.2 Acidosis; E11.22 Type 2 diabetes mellitus with diabetic chronic kidney disease; Z88.6 Allergy status to analgesic agent; M10.9 Gout, unspecified; Z86.73 Personal history of transient ischemic attack (TIA), and cerebral infarction without residual deficits; E78.00 Pure hypercholesterolemia, unspecified; I73.9 Peripheral vascular disease, unspecified; Z86.718 Personal history of other venous thrombosis and embolism; Z79.4 Long term (current) use of insulin; Z89.612 Acquired absence of left leg above knee; Z89.611 Acquired absence of right leg above knee; R00.8 Other abnormalities of heart beat; Z86.11 Personal history of tuberculosis; F03.90 Unspecified dementia, unspecified severity, without behavioral disturbance, psychotic disturbance, mood disturbance, and anxiety
CPT/HCPCS: 36415; 71045; 80048; 80053; 80076; 82306; 82550; 82553; 82728; 82962; 83540; 83550; 83605; 83735; 83970; 84100; 84484; 85025; 86706; 86850; 86900; 86901; 87040; 87081; 87324; 93005; 93306; 99285; J1815; U0002

== ENCOUNTER 2020-06-16 14:37 | Inpatient (IN) | payer MEDICARE, MEDICAID ==
[~2020-06-16] VITALS: Ht 129.5 cm; Wt 62.6 kg
[~2020-06-16 14:37] MED LIST changes: +FERROUS SU220 MG/53 JT; +HUMALOG100 UNIT/4 SUBQ; +NOVASOURCE RE1000 M1 JT; +SENNA8.6 M2 JT; +VANCOMYCIN HCL125 MG JT; +VANCOMYCIN HCL125 MG PO
[2020-06-16] MEDS ORDERED: NEPHROVITE1 TAB JT (14:58)
[2020-06-16] MEDS ORDERED: ZINC SULFATE220 M1 JT (14:58)
[2020-06-16 15:15] VITALS: BP 130/79
--- NOTE | 2020-06-16 15:21 | Emergency Room Report ---
History of Present Illness General Chief Complaint: Malfunctioning Gastric Tube Source: Medical Record Present Illness HPI Disclaimer: Please note that this report is being documented using DRAGON technology. This can lead to erroneous entry secondary to incorrect interpretation by the dictating instrument. HPI: 85-year-old female history of stroke, end-stage renal disease, bedbound, J- tube dependent presented for leakage of J-tube. Patient presents from shelter facility. She is a DNR with selective treatment. PMH: As above PSH: Reviewed Social Hx: Currently lives in a shelter facility Allergies: Coded Allergies: GABAPENTIN (Unverified Allergy, Unknown, 06/14/19) COVID-19 Screening Contact w/high risk pt: No Recent Travel to affected area: No Experienced COVID-19 symptoms?: No COVID-19 Testing performed REAL ESTATE INTERN: No Patient History Reviewed Nursing Documentation: PMH: Agreed; PSxH: Agreed Nursing Documentation-PMH Past Medical History: No History, Except For Hx Cardiac Problems: Yes - PNA, Anemia, Hyperlipidemia Hx Hypertension: Yes Hx Diabetes: Yes Hx Cancer: No Hx Gastrointestinal Problems: Yes - GERD Hx Dialysis: Yes - ESRD Hx Neurological Problems: Yes - Muscle weakness Hx Cerebrovascular Accident: Yes Review of Systems All Other Systems: limited - Patient nonverbal at baseline Physical Exam Vital Signs Date Time Temp Pulse Resp B/P (MAP) Pulse Ox O2 Delivery O2 Flow Rate FiO2 06/16/20 14:39 97.5 82 16 142/76 (98) 95 Room Air Sp02 EP Interpretation: reviewed, normal General Appearance: well appearing, Chronically Ill Head: normocephalic, atraumatic Eyes: bilateral eye PERRL, bilateral eye EOMI ENT: hearing grossly normal, moist mucus membranes Neck: full range of motion, supple Respiratory: lungs clear, normal breath sounds, no rhonchi, no respiratory distress, no retraction, no wheezing Cardiovascular #1: normal peripheral pulses, regular rate, rhythm, no murmur Gastrointestinal: non tender, soft, non-distended, no guarding, other - Jejunostomy tube present Musculoskeletal: other - Bilateral [id number] amputation right upper extremity dialysis access with thrill Neurologic: alert, other - Nonverbal at baseline upper extremities contracted Skin: normal color, warm/dry Medical Decision Making Diagnostic Impression: Primary Impression: Malfunction of gastrostomy tube Additional Impression: Hypoglycemia ER Course MDM: Patient presents for jejunostomy tube dysfunction. Apparently it has been leaking. She is J-tube dependent. Patient unable to provide any further history however vital signs stable on arrival. As we cannot replace a J-tube in the ER patient will require admission. Laboratory studies did demonstrate hypoglycemia most likely due to patient's jejunostomy dysfunction so 1 amp of D50 given. Labs - Laboratory Tests Test 06/16/20 15:15 White Blood Count 4.5 K/UL (4.8-10.8) L Red Blood Count 4.34 M/UL (4.20-5.40) Hemoglobin 12.2 G/DL (12.0-16.0) Hematocrit 39.8 % (37.0-47.0) Mean Corpuscular Volume 92 FL (80-99) Mean Corpuscular Hemoglobin 28.0 PG (27.0-31.0) Mean Corpuscular Hemoglobin Concent 30.6 G/DL (32.0-36.0) L Red Cell Distribution Width 21.2 % (11.6-14.8) H Platelet Count 168 K/UL (150-450) Mean Platelet Volume 6.8 FL (6.5-10.1) Neutrophils (%) (Auto) 71.6 % (45.0-75.0) Lymphocytes (%) (Auto) 14.8 % (20.0-45.0) L Monocytes (%) (Auto) 10.3 % (1.0-10.0) H Eosinophils (%) (Auto) 2.4 % (0.0-3.0) Basophils (%) (Auto) 0.9 % (0.0-2.0) Prothrombin Time 11.9 SEC (9.30-11.50) H Prothrombin Time INR 1.1 (0.9-1.1) Activated Partial Thromboplast Time 33 SEC (23-33) Sodium Level 138 MMOL/L (136-145) Potassium Level 4.7 MMOL/L (3.5-5.1) Chloride Level 98 MMOL/L (98-107) Carbon Dioxide Level 32 MMOL/L (21-32) Anion Gap 8 mmol/L (5-15) Blood Urea Nitrogen 27 mg/dL (7-18) H Creatinine 5.4 MG/DL (0.55-1.30) H Estimated Glomerular Filtration Rate 9.2 mL/min (>60) Glucose Level 52 MG/DL (74-106) L Calcium Level 8.6 MG/DL (8.5-10.1) Total Bilirubin 1.1 MG/DL (0.2-1.0) H Direct Bilirubin 0.4 MG/DL (0.0-0.3) H Aspartate Amino Transferase (AST) 37 U/L (15-37) Alanine Aminotransferase (ALT) 36 U/L (12-78) Alkaline Phosphatase 240 U/L (46-116) H Total Protein 8.9 G/DL (6.4-8.2) H Albumin 3.1 G/DL (3.4-5.0) L Globulin 5.8 g/dL Albumin/Globulin Ratio 0.5 (1.0-2.7) L Microbiology Date/Time Source Procedure Growth Status 06/16/20 15:38 Nasopharynx SARS-CoV-2 RdRp Gene Assay - Final Complete Plan-admit to the medical floor Last Vital Signs Date Time Temp Pulse Resp B/P (MAP) Pulse Ox O2 Delivery O2 Flow Rate FiO2 06/16/20 14:39 97.5 82 16 142/76 (98) 95 Room Air Disposition: ADMITTED INPATIENT Condition: Serious Fausto Rothman M.D. Jun 16, 2020 15:21
[2020-06-16 15:40] LABS: INR 1.1 (0.9-1.1)
[2020-06-16 15:48] LABS: ANION GAP 8 mmol/L (5-15); BLOOD UREA NITROGEN 27 mg/dL (7-18); CALCIUM 8.6 MG/DL (8.5-10.1); CARBON DIOXIDE 32 MMOL/L (21-32); CHLORIDE 98 MMOL/L (98-107); CREATININE 5.4 MG/DL (0.55-1.30); POTASSIUM 4.7 MMOL/L (3.5-5.1); SODIUM 138 MMOL/L (136-145)
[2020-06-16 15:50] LABS: BASOPHILS % (AUTO) 0.9 % (0.0-2.0); EOSINOPHILS % (AUTO) 2.4 % (0.0-3.0); HEMATOCRIT 39.8 % (37.0-47.0); HEMOGLOBIN 12.2 G/DL (12.0-16.0); LYMPHOCYTES % (AUTO) 14.8 % (20.0-45.0); MEAN CORPUSCULAR VOLUME 92 FL (80-99); MONOCYTES % (AUTO) 10.3 % (1.0-10.0); NEUTROPHILS % (AUTO) 71.6 % (45.0-75.0); PLATELET COUNT 168 K/UL (150-450); RED BLOOD COUNT 4.34 M/UL (4.20-5.40); RED CELL DISTRIBUTION WIDTH 21.2 % (11.6-14.8); WHITE BLOOD COUNT 4.5 K/UL (4.8-10.8)
[2020-06-16 15:59] LABS: ALANINE AMINOTRANSFERASE 36 U/L (12-78); ALBUMIN 3.1 G/DL (3.4-5.0); ALBUMIN/GLOBULIN RATIO 0.5 (1.0-2.7); ALKALINE PHOSPHATASE 240 U/L (46-116); ASPARTATE AMINO TRANSFERASE 37 U/L (15-37); BILIRUBIN,TOTAL 1.1 MG/DL (0.2-1.0)
[2020-06-16 16:00] LABS: BILIRUBIN,DIRECT 0.4 MG/DL (0.0-0.3)
[2020-06-16 17:39] VITALS: BP 127/78
[2020-06-16 18:15] VITALS: BP 122/62
[2020-06-16 20:00] VITALS: BP 95/58
[2020-06-16] MEDS ORDERED: Sennosides 8.6mg tab ORAL PRN (21:45)
[2020-06-16] MEDS ORDERED: Miralax 17gm pkt ORAL PRN (21:45)
[2020-06-17] VITALS (11 sets, daily range): BP systolic 82–143; BP diastolic 46–71
[2020-06-17] MEDS: D5 1/2NS 1,000 ML IV SCH ×2 (02:29→20:50)
[2020-06-17] MEDS: NovoLOG Insulin Flexpen SUBQ SCH ×4 (06:27→20:49)
[2020-06-17] MEDS ORDERED: NovoLOG Insulin Flexpen SUBQ SCH (06:30)
[2020-06-17 07:17] LABS: ANION GAP 6 mmol/L (5-15); BLOOD UREA NITROGEN 35 mg/dL (7-18); CALCIUM 8.3 MG/DL (8.5-10.1); CARBON DIOXIDE 32 MMOL/L (21-32); CHLORIDE 99 MMOL/L (98-107); CREATININE 6.7 MG/DL (0.55-1.30); POTASSIUM 4.1 MMOL/L (3.5-5.1); SODIUM 137 MMOL/L (136-145)
[2020-06-17 07:20] LABS: EOSINOPHILS % (AUTO) 3.7 % (0.0-3.0); HEMATOCRIT 39.8 % (37.0-47.0); HEMOGLOBIN 11.7 G/DL (12.0-16.0); LYMPHOCYTES % (AUTO) 14.1 % (20.0-45.0); MEAN CORPUSCULAR VOLUME 93 FL (80-99); MONOCYTES % (AUTO) 6.2 % (1.0-10.0); PLATELET COUNT 165 K/UL (150-450); RED BLOOD COUNT 4.28 M/UL (4.20-5.40); RED CELL DISTRIBUTION WIDTH 20.4 % (11.6-14.8); WHITE BLOOD COUNT 3.5 K/UL (4.8-10.8)
[2020-06-17 07:27] LABS: INR 1.1 (0.9-1.1)
[2020-06-17] MEDS: Zinc Sulfate 220mg ORAL SCH ×2 (09:00→11:23)
[2020-06-17] MEDS ORDERED: Heparin 1000 units/ml 1ml Vial INJ SCH (09:00)
[2020-06-17] MEDS ORDERED: Vitamin B Complex Tab ORAL SCH (09:00)
--- NOTE | 2020-06-17 09:22 | Anethesia Preoperative Eval ---
Anesthesia Pre-op PMH/ROS General Date of Evaluation: Jun 17, 2020 Time of Evaluation: 09:22 Anesthesiologist: cheng ASA Score: ASA 4 Mallampati Score Class I : Soft palate, uvula, fauces, pillars visible Class II: Soft palate, uvula, fauces visible Class III: Soft palate, base of uvula visible Class IV: Only hard plate visible Mallampati Classification: Class II Surgeon: rich Anesthesia History: none Social History: smoking - nonsmoker Family History: no anesthesia problems Allergies: Coded Allergies: GABAPENTIN (Unverified Allergy, Unknown, 06/14/19) Medications: see eMAR Patient NPO?: Yes Past Medical History Cardiovascular: Reports: other - hypercholesterolemia, hyperlipidemia, Pulmonary: Reports: other - pneumonia Gastrointestinal/Genitourinary: Reports: GERD, ESRD Neurologic/Psychiatric: Reports: CVA Endocrine: Reports: DM Hematology/Immune: Reports: anemia Musculoskeletal/Integumentary: Reports: other - bilateral bka Anesthesia Pre-op Phys. Exam Physician Exam Last Vital Signs Date Time Temp Pulse Resp B/P (MAP) Pulse Ox O2 Delivery O2 Flow Rate FiO2 06/17/20 08:00 98.6 81 19 110/59 (76) 97 06/16/20 21:00 Room Air Constitutional: NAD Neurologic: other Cardiovascular: RRR Respiratory: CTA Gastrointestinal: other - j-tube Airway Exam Mallampati Score: Class II MO: limited Neck: flexible TMD: 2fb ROM: limited Teeth: missing Anesthesia Pre-op A/P Labs Microbiology Date/Time Source Procedure Growth Status 06/16/20 15:38 Nasopharynx SARS-CoV-2 RdRp Gene Assay - Final Complete 06/16/20 15:47 Rectum Received Hematology Test 06/16/20 15:15 06/17/20 06:15 White Blood Count 4.5 K/UL (4.8-10.8) L 3.5 K/UL (4.8-10.8) L Red Blood Count 4.34 M/UL (4.20-5.40) 4.28 M/UL (4.20-5.40) Hemoglobin 12.2 G/DL (12.0-16.0) 11.7 G/DL (12.0-16.0) L Hematocrit 39.8 % (37.0-47.0) 39.8 % (37.0-47.0) Mean Corpuscular Volume 92 FL (80-99) 93 FL (80-99) Mean Corpuscular Hemoglobin 28.0 PG (27.0-31.0) 27.3 PG (27.0-31.0) Mean Corpuscular Hemoglobin Concent 30.6 G/DL (32.0-36.0) L 29.4 G/DL (32.0-36.0) L Red Cell Distribution Width 21.2 % (11.6-14.8) H 20.4 % (11.6-14.8) H Platelet Count 168 K/UL (150-450) 165 K/UL (150-450) Mean Platelet Volume 6.8 FL (6.5-10.1) 6.4 FL (6.5-10.1) L Neutrophils (%) (Auto) 71.6 % (45.0-75.0) 75.0 % (45.0-75.0) Lymphocytes (%) (Auto) 14.8 % (20.0-45.0) L 14.1 % (20.0-45.0) L Monocytes (%) (Auto) 10.3 % (1.0-10.0) H 6.2 % (1.0-10.0) Eosinophils (%) (Auto) 2.4 % (0.0-3.0) 3.7 % (0.0-3.0) H Basophils (%) (Auto) 0.9 % (0.0-2.0) 1.0 % (0.0-2.0) Coagulation Test 06/16/20 15:15 06/17/20 06:15 Prothrombin Time 11.9 SEC (9.30-11.50) H 12.0 SEC (9.30-11.50) H Prothromb Time International Ratio 1.1 (0.9-1.1) 1.1 (0.9-1.1) Activated Partial Thromboplast Time 33 SEC (23-33) 33 SEC (23-33) Chemistry Test 06/16/20 15:15 06/17/20 06:15 Sodium Level 138 MMOL/L (136-145) 137 MMOL/L (136-145) Potassium Level 4.7 MMOL/L (3.5-5.1) 4.1 MMOL/L (3.5-5.1) Chloride Level 98 MMOL/L (98-107) 99 MMOL/L (98-107) Carbon Dioxide Level 32 MMOL/L (21-32) 32 MMOL/L (21-32) Anion Gap 8 mmol/L (5-15) 6 mmol/L (5-15) Blood Urea Nitrogen 27 mg/dL (7-18) H 35 mg/dL (7-18) H Creatinine 5.4 MG/DL (0.55-1.30) H 6.7 MG/DL (0.55-1.30) H Estimat Glomerular Filtration Rate 9.2 mL/min (>60) 7.2 mL/min (>60) Glucose Level 52 MG/DL (74-106) L 167 MG/DL (74-106) #H Calcium Level 8.6 MG/DL (8.5-10.1) 8.3 MG/DL (8.5-10.1) L Total Bilirubin 1.1 MG/DL (0.2-1.0) H Direct Bilirubin 0.4 MG/DL (0.0-0.3) H Aspartate Amino Transf (AST/SGOT) 37 U/L (15-37) Alanine Aminotransferase (ALT/SGPT) 36 U/L (12-78) Alkaline Phosphatase 240 U/L (46-116) H Total Protein 8.9 G/DL (6.4-8.2) H Albumin 3.1 G/DL (3.4-5.0) L Globulin 5.8 g/dL Albumin/Globulin Ratio 0.5 (1.0-2.7) L Risk Assessment & Plan Assessment: asa4 Plan: mac Status Change Before Surgery: No Pre-Antibiotics Drug: Edith Pratt MD Jun 17, 2020 09:22
--- NOTE | 2020-06-17 09:25 | Pre-Procedure Note/Attestation ---
Pre-Procedure Note/Attestation Complete Prior to Procedure Planned Procedure: not applicable Procedure Narrative: egd/GJT placement Indications for Procedure Pre-Operative Diagnosis: dysphagia Attestation I attest that I discussed the nature of the procedure; its benefits; risks and complications; and alternatives (and the risks and benefits of such alternatives ), prior to the procedure, with the patient (or the patient's legal chain sales representative). I attest that, if there was a reasonable possibility of needing a blood transfusion, the patient (or the patient's legal chain sales representative) was given the [facility] standardized written summary, pursuant to the Marlon Marcos Blood Safety Act ([place] Health and Safety Code # 1645, as amended). I attest that I re-evaluated the patient just prior to the surgery and that there has been no change in the patient's H&P, except as documented below: Ezequiel Perales MD Jun 17, 2020 09:25
[2020-06-17] MEDS ORDERED: Atropine Inj 1mg/10ml Syr IV PRN (09:30)
[2020-06-17] MEDS ORDERED: fentaNYL 100 mcg/2 mL IV PRN (09:30)
[2020-06-17] MEDS ORDERED: Midazolam 2mg/2ml Inj IVP PRN (09:30)
[2020-06-17] MEDS ORDERED: Lidocaine 1% MPF 10mg/ml 5ml ONE (09:30)
[2020-06-17] MEDS ORDERED: DiphenhydrAMINE 50mg/ml Inj IVP PRN (09:30)
[2020-06-17] MEDS ORDERED: NS 500ML IVPB ONE (09:45)
--- NOTE | 2020-06-17 10:30 | Immediate Post-Op Evaluation ---
Immediate Post-Op Evalulation Immediate Post-Op Evalulation Procedure: j-tube replacement Date of Evaluation: Jun 17, 2020 Time of Evaluation: 10:27 IV Fluids: 150ml 0.9ns Blood Products: none Estimated Blood Loss: negligible Blood Pressure Systolic: 90 Blood Pressure Diastolic: 51 Pulse Rate: 83 Respiratory Rate: 18 O2 Sat by Pulse Oximetry: 100 Temperature (Fahrenheit): 97.3 Pain Score (1-10): 0 Nausea: No Vomiting: No Complications none Patient Status: awake, reacts, patent Hydration Status: adequate Drug: Edith Pratt MD Jun 17, 2020 10:30
--- NOTE | 2020-06-17 10:33 | 48 Hour Post Anesthesia Eval ---
Post Anesthesia Evaluation Procedure: j-tube replacement Date of Evaluation: Jun 17, 2020 Time of Evaluation: 10:31 Blood Pressure Systolic: 108 0: 60 Pulse Rate: 83 Respiratory Rate: 18 Temperature (Fahrenheit): 97.3 O2 Sat by Pulse Oximetry: 100 Airway: patent Nausea: No Vomiting: No Pain Intensity: 0 Hydration Status: adequate Cardiopulmonary Status: stable Mental Status/LOC: patient returned to baseline Post-Anesthesia Complications: none Follow-up care needed: N/A Edith Lee MD Jun 17, 2020 10:33
--- NOTE | 2020-06-17 10:45 | History and Physical Report ---
DATE OF ADMISSION: 06/16/2020 CHIEF COMPLAINT: Malfunctioning J-tube. HISTORY OF PRESENT ILLNESS: This is an 85-year-old female with a history of end-stage renal disease on hemodialysis 3 times a week who presented to the emergency room for changing malfunctioning J-tube. Patient is scheduled to have the procedure done on 06/17/2020 in the morning. She has a history of diabetes, hypertension, and end-stage renal disease with hyperlipidemia. PAST MEDICAL HISTORY: Includes hypertension, diabetes, end-stage renal disease, hyperlipidemia, peripheral vascular disease, history of CVA and DVT, anemia secondary to chronic kidney disease, and history of gout. 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 PAST SURGICAL HISTORY: Include right arm AV graft, history of bilateral [id number]-[id number] amputation, and PEG tube, J-tube placement for tube feeding. CURRENT MEDICATIONS: Please review the medication list from the [facility]. ALLERGIES: Gabapentin. SOCIAL HISTORY: Patient lives in [facility] as a long-term patient. No history of smoking, alcohol, or drug use. REVIEW OF SYSTEMS: Negative except for HPI. PHYSICAL EXAMINATION: VITAL SIGNS: Includes temperature 97.5, pulse 82, respirations 16, blood pressure 142/76, O2 saturation is 95% on room air. GENERAL: No acute distress. HEENT: Normocephalic, normochromic. Extraocular muscles intact. NECK: Supple. No lymphadenopathy. LUNGS: Clear to auscultation. CARDIOVASCULAR: Regular rate and rhythm. No murmur. No gallop. ABDOMEN: Soft, nontender, nondistended. Positive bowel sounds. EXTREMITIES: No edema, cyanosis, or clubbing. LABORATORY AND DIAGNOSTIC DATA: Include WBC 4.5, hemoglobin 12.2, hematocrit 39.8, platelets of 168. Sodium 138, potassium 4.7, chloride 98, bicarb 32, BUN 27, creatinine 5.4, glucose 52. Total bilirubin 1.1, AST 37, ALT 36, alkaline phosphatase 240. Albumin 3.1. PT 12.0, INR 1.1, and PTT 33. IMPRESSION: 1. Malfunctioning J-tube. Patient will be scheduled for replacement of the J-tube with Dr. Perales. 2. End-stage renal disease, on hemodialysis. We will have Dr. Arnold see the patient for possible dialysis while in the hospital. 3. Hypercholesterolemia. Continue same medications. 4. Diabetes. We will continue sliding scale insulin for now. 5. History of CVA and peripheral vascular disease, status post bilateral [id number]-opz-[id number] amputation. 6. History of DVT previously. Patient will be admitted for J-tube replacement and will be discharged back to the [facility] after the procedure if cleared by Dr. Perales. Pam Alcantar M.D. DR: ELLIE JOB#: [id number] CC: BHANU
[2020-06-17] MEDS: Brimonidine 0.2% Opth Sol BOTH EYES SCH ×2 (12:15→17:45)
--- NOTE | 2020-06-17 12:33 | Endoscopy Procedure Note ---
Endoscopy Procedure Note General Indication for Procedure: dysphagia Procedures Performed: EGD, jejunostomy tube Operative Findings/Diagnosis: same Specimen: none Pt Tolerated Procedure Well: Yes Estimated Blood Loss: none Anesthesia Anesthesiologist: cass Anesthesia: MAC Inserted Devices Implant(s) used?: No GI Core Measures 50 yrs or older w/o bx or poly: Not Applicable 10yrs. F/U recommended: Not Applicable Ezequiel Perales MD Jun 17, 2020 12:33
--- NOTE | 2020-06-17 12:51 | Consultation ---
Consult Note Assessment/Plan consult dictated # [id number] Aftab Arnold MD Jun 17, 2020 12:51
[2020-06-17] MEDS ORDERED: Heparin Sod 1000 units/ml 10ml IV PRN (12:58)
[2020-06-17] MEDS: Nephrovite tab (Rena-Vite) ORAL SCH (13:00)
--- NOTE | 2020-06-17 14:30 | Consultation ---
DATE OF CONSULTATION: 06/17/2020 CONSULTING PHYSICIAN: Aftab Arnold MD. REFERRING PHYSICIAN: Pam Alcantar MD. REASON FOR CONSULTATION: End-stage renal disease requiring hemodialysis. HISTORY OF PRESENT ILLNESS: This is an 85-year-old female, who is unable to provide any history. History was obtained from the chart. The patient has a history of end-stage renal disease, on hemodialysis. She was admitted for malfunctioning of J-tube and the patient is scheduled to have replacement of J-tube. PAST MEDICAL HISTORY: Includes history of hypertension, diabetes, hyperlipidemia, peripheral vascular disease, CVA, DVT, gout, TB in childhood, functional quadriplegia, and history of upper GI bleed. The patient is status post right arm AV graft, history of bilateral below-knee amputations. The patient has a history of dementia. SOCIAL HISTORY: The patient lives in [facility]. No history of smoking or alcohol abuse. ALLERGIES: Gabapentin. REVIEW OF SYSTEMS: Unobtainable. PHYSICAL EXAMINATION: GENERAL: The patient is an elderly female, in no acute distress. VITAL SIGNS: Blood pressure is 123/61, pulse 83, respirations 24, temperature 97.8. HEENT: [place] conjunctivae. Anicteric sclerae. NECK: Supple. LUNGS: Clear to auscultation. HEART: S1, S2 without murmurs or rubs. ABDOMEN: Soft, nontender. EXTREMITIES: Bilateral below-knee amputation. LABORATORY FINDINGS: The CBC shows a WBC of 3500 hematocrit is 39.3, hemoglobin is 11.7, platelets 165,000. Chemistry panel shows serum sodium of 137, potassium 4.1, chloride 99, CO2 32, BUN is 35, and creatinine 6.7. Glucose is 167. Calcium is 8.3. ASSESSMENT: This is an 85-year-old female who has end-stage renal disease, on hemodialysis, who was admitted for J-tube malfunction. The J-tube to supposed to be exchanged. PLAN: The patient will be dialyzed today. Labs will be followed and further recommendations will be made. The patient will be on Nephro-Xavier one a day. She will need PTH today as well as vitamin D to be checked, but those can be done as an outpatient, as a result will not be available for the next few days. Thank you very much, Dr. Alcantar, for this consultation. Aftab Arnold M.D. DR: FIONA JOB#: [id number] CC:
--- NOTE | 2020-06-17 16:45 | Procedure Note ---
DATE OF PROCEDURE: 06/17/2020 SURGEON: Ezequiel Perales MD PROCEDURE: Upper endoscopy with GJ tube replacement. ANESTHESIA: Edith De La Rosa MD INSTRUMENT: Olympus adult flexible upper endoscope. INDICATION FOR PROCEDURE: Dysphagia. The procedure, risks, benefits, and possible consequences, including hemorrhage, aspiration, perforation and infection, and alternative treatments, were explained to the patient/legal guardian by Dr. Ezequiel Perales and the patient/legal guardian understood and accepted these risks. PROCEDURE IN DETAIL: After informed consent was obtained and the patient was adequately sedated, Olympus upper endoscope was advanced from the mouth to the second portion of the duodenum and retroflexion was performed in the stomach. The patient had a GJ tube, but it was ruptured, so the balloon was deflated. J-tube was removed and 24-Colombian J-tube was passed with a rat-tooth alligator down to the small intestine without any complication. The patient tolerated the procedure very well without any complication. SUMMARY OF FINDINGS: Status post successful 24-Colombian J-tube replacement. RECOMMENDATIONS: 1. Start J-tube feeding later today. 2. Check for residuals given this is a J-tube. 3. Flush every six hours with 100 mL of water. I want to thank Dr. Alcantar for this kind referral. Ezequiel Perales M.D. DR: RANDALL JOB#: [id number] CC: Pam Alcantar MD.; Fax#: [phone]
[2020-06-17] MEDS ORDERED: ZINC SULFATE220 M2 JT (19:46)
[2020-06-17] MEDS ORDERED: PRO-STAT LIQUID30 ML JT (19:48)
[2020-06-17] MEDS: Heparin 5000 units/ml inj SUBQ SCH (20:49)
[2020-06-18] VITALS: BP 118/64
[2020-06-18 04:00] VITALS: BP 117/58
[2020-06-18] MEDS: NovoLOG Insulin Flexpen SUBQ SCH ×4 (05:55→20:32)
[2020-06-18 08:00] VITALS: BP 121/55
--- NOTE | 2020-06-18 08:39 | General Progress Note ---
Assessment/Plan Problem List: (1) Jejunostomy tube leak ICD Codes: K94.13 - Enterostomy malfunction SNOMED: 249144316 (2) Malfunction of gastrostomy tube ICD Codes: K94.23 - Gastrostomy malfunction SNOMED: 697547462 (3) Dementia ICD Codes: F03.90 - Unspecified dementia without behavioral disturbance SNOMED: 38338450 (4) ESRD (end stage renal disease) on dialysis ICD Codes: N18.6 - End stage renal disease; Z99.2 - Dependence on renal dialysis SNOMED: 595877128 (5) DM (diabetes mellitus) ICD Codes: E11.9 - Type 2 diabetes mellitus without complications SNOMED: 29311388 (6) Anemia ICD Codes: D64.9 - Anemia, unspecified SNOMED: 619766946 Assessment/Plan: s/p JT placement on feeding pend placement Subjective ROS Limited/Unobtainable: No Allergies: Coded Allergies: GABAPENTIN (Unverified Allergy, Unknown, 06/14/19) Objective Last 24 Hour Vital Signs Date Time Temp Pulse Resp B/P (MAP) Pulse Ox O2 Delivery O2 Flow Rate FiO2 06/18/20 08:00 97.0 72 17 121/55 (77) 94 06/18/20 04:00 96.6 72 20 117/58 (77) 97 06/18/20 00:00 96.6 74 20 118/64 (82) 96 06/17/20 21:00 Room Air 06/17/20 20:00 96.7 78 20 143/71 (95) 98 06/17/20 16:00 98.3 71 19 122/68 (86) 97 06/17/20 12:00 98.4 85 20 120/62 (81) 98 06/17/20 10:40 97.8 83 24 123/61 100 Nasal Cannula 3 06/17/20 10:33 83 18 100 06/17/20 10:30 83 20 108/60 100 Nasal Cannula 3 06/17/20 10:30 83 18 100 06/17/20 10:25 86 23 90/51 99 Nasal Cannula 3 06/17/20 10:20 87 24 85/52 100 Nasal Cannula 3 06/17/20 10:15 97.3 93 28 82/46 100 Nasal Cannula 3 06/17/20 09:00 Room Air Intake and Output 06/17/20 06/18/20 19:00 07:00 Intake Total 610 ml 260 ml Balance 610 ml 260 ml IV Total 600 ml Tube Feeding 10 ml 260 ml # Voids 2 Height (Feet): 4 Height (Inches): 3.00 Weight (Pounds): 138 General Appearance: alert EENT: normal ENT inspection Neck: supple Cardiovascular: normal rate Respiratory/Chest: decreased breath sounds Abdomen: normal bowel sounds, non tender, soft Extremities: non-tender Ezequiel Perales MD Jun 18, 2020 08:39
[2020-06-18] MEDS: Nephrovite tab (Rena-Vite) ORAL SCH (08:45)
[2020-06-18] MEDS: Zinc Sulfate 220mg ORAL SCH (08:45)
[2020-06-18] MEDS: Heparin 5000 units/ml inj SUBQ SCH ×2 (08:46→20:30)
[2020-06-18] MEDS: Brimonidine 0.2% Opth Sol BOTH EYES SCH ×2 (08:46→17:17)
--- NOTE | 2020-06-18 08:57 | General Progress Note ---
Assessment/Plan Status: stable Assessment/Plan: 1. Malfunctioning J-tube. Peg tube replaced with Dr. Perales. 2. End-stage renal disease, on hemodialysis. We will have HD and then d/c. 3. Hypercholesterolemia. Continue same medications. 4. Diabetes. We will continue sliding scale insulin for now. 5. History of CVA and peripheral vascular disease, status post bilateral srlir-cgk-mzpa amputation. 6. History of DVT previously. Subjective Date patient seen: Jun 17, 2020 Time patient seen: 09:00 Constitutional: Reports: no symptoms HEENT: Reports: no symptoms Cardiovascular: Reports: no symptoms Respiratory: Reports: no symptoms Gastrointestinal/Abdominal: Reports: no symptoms Genitourinary: Reports: no symptoms Neurologic/Psychiatric: Reports: no symptoms Endocrine: Reports: no symptoms Hematologic/Lymphatic: Reports: no symptoms Allergies: Coded Allergies: GABAPENTIN (Unverified Allergy, Unknown, 06/14/19) Subjective Late entry note. she had peg tube replacement but need dialysis for tomorrow and will be discharged to [facility] after HD. Objective Last 24 Hour Vital Signs Date Time Temp Pulse Resp B/P (MAP) Pulse Ox O2 Delivery O2 Flow Rate FiO2 06/18/20 08:00 97.0 72 17 121/55 (77) 94 06/18/20 04:00 96.6 72 20 117/58 (77) 97 06/18/20 00:00 96.6 74 20 118/64 (82) 96 06/17/20 21:00 Room Air 06/17/20 20:00 96.7 78 20 143/71 (95) 98 06/17/20 16:00 98.3 71 19 122/68 (86) 97 06/17/20 12:00 98.4 85 20 120/62 (81) 98 06/17/20 10:40 97.8 83 24 123/61 100 Nasal Cannula 3 06/17/20 10:33 83 18 100 06/17/20 10:30 83 20 108/60 100 Nasal Cannula 3 06/17/20 10:30 83 18 100 06/17/20 10:25 86 23 90/51 99 Nasal Cannula 3 06/17/20 10:20 87 24 85/52 100 Nasal Cannula 3 06/17/20 10:15 97.3 93 28 82/46 100 Nasal Cannula 3 06/17/20 09:00 Room Air Intake and Output 06/17/20 06/18/20 19:00 07:00 Intake Total 610 ml 260 ml Balance 610 ml 260 ml IV Total 600 ml Tube Feeding 10 ml 260 ml # Voids 2 Height (Feet): 4 Height (Inches): 3.00 Weight (Pounds): 138 General Appearance: no apparent distress, alert EENT: normal ENT inspection Neck: non-tender, normal alignment, supple Cardiovascular: normal rate, regular rhythm Respiratory/Chest: lungs clear, normal breath sounds Abdomen: normal bowel sounds, non tender, soft Extremities: normal range of motion, non-tender Edema: no edema noted Arm (L), no edema noted Arm (R), no edema noted Leg (L), no edema noted Leg (R), no edema noted Pedal (L), no edema noted Pedal (R), no edema noted Generalized Neurologic: alert, responsive Skin: warm/dry Pam Alcantar MD Jun 18, 2020 08:57
--- NOTE | 2020-06-18 09:01 | General Progress Note ---
Assessment/Plan Status: stable Assessment/Plan: 1. Malfunctioning J-tube. Peg tube replaced with Dr. Perales. will D/C today. 2. End-stage renal disease, on hemodialysis. D/C today after HD. 3. Hypercholesterolemia. Continue same medications. 4. Diabetes. We will continue sliding scale insulin for now. 5. History of CVA and peripheral vascular disease, status post bilateral cjmyz-kvi-kttq amputation. 6. History of DVT previously. Subjective Date patient seen: Jun 18, 2020 Time patient seen: 09:00 Constitutional: Reports: no symptoms HEENT: Reports: no symptoms Cardiovascular: Reports: no symptoms Respiratory: Reports: no symptoms Gastrointestinal/Abdominal: Reports: no symptoms Genitourinary: Reports: no symptoms Neurologic/Psychiatric: Reports: no symptoms Endocrine: Reports: no symptoms Hematologic/Lymphatic: Reports: no symptoms Allergies: Coded Allergies: GABAPENTIN (Unverified Allergy, Unknown, 06/14/19) Subjective she will have HD today and will go back to [facility]. she is doing well. Objective Last 24 Hour Vital Signs Date Time Temp Pulse Resp B/P (MAP) Pulse Ox O2 Delivery O2 Flow Rate FiO2 06/18/20 08:00 97.0 72 17 121/55 (77) 94 06/18/20 04:00 96.6 72 20 117/58 (77) 97 06/18/20 00:00 96.6 74 20 118/64 (82) 96 06/17/20 21:00 Room Air 06/17/20 20:00 96.7 78 20 143/71 (95) 98 06/17/20 16:00 98.3 71 19 122/68 (86) 97 06/17/20 12:00 98.4 85 20 120/62 (81) 98 06/17/20 10:40 97.8 83 24 123/61 100 Nasal Cannula 3 06/17/20 10:33 83 18 100 06/17/20 10:30 83 20 108/60 100 Nasal Cannula 3 06/17/20 10:30 83 18 100 06/17/20 10:25 86 23 90/51 99 Nasal Cannula 3 06/17/20 10:20 87 24 85/52 100 Nasal Cannula 3 06/17/20 10:15 97.3 93 28 82/46 100 Nasal Cannula 3 06/17/20 09:00 Room Air Intake and Output 06/17/20 06/18/20 19:00 07:00 Intake Total 610 ml 260 ml Balance 610 ml 260 ml IV Total 600 ml Tube Feeding 10 ml 260 ml # Voids 2 Height (Feet): 4 Height (Inches): 3.00 Weight (Pounds): 138 General Appearance: no apparent distress, alert Neck: non-tender, supple Cardiovascular: normal rate, regular rhythm Respiratory/Chest: lungs clear, normal breath sounds Abdomen: non tender, soft Extremities: non-tender Neurologic: alert, responsive Skin: warm/dry Pam Alcantar MD Jun 18, 2020 09:01
[2020-06-18 12:00] VITALS: BP 100/52
--- NOTE | 2020-06-18 13:42 | Nephrology Progress Note ---
Assessment/Plan Problem List: (1) ESRD (end stage renal disease) on dialysis (2) DM (diabetes mellitus) (3) Dementia (4) Malfunction of gastrostomy tube (5) Secondary hyperparathyroidism of renal origin Plan HD today Discussed with Dr Alcantar and RN DC after HD Subjective Subjective In NAD Objective Objective Last 24 Hour Vital Signs Date Time Temp Pulse Resp B/P (MAP) Pulse Ox O2 Delivery O2 Flow Rate FiO2 06/18/20 12:00 97.0 65 17 100/52 (68) 92 06/18/20 09:00 Room Air 06/18/20 08:00 97.0 72 17 121/55 (77) 94 06/18/20 04:00 96.6 72 20 117/58 (77) 97 06/18/20 00:00 96.6 74 20 118/64 (82) 96 06/17/20 21:00 Room Air 06/17/20 20:00 96.7 78 20 143/71 (95) 98 06/17/20 16:00 98.3 71 19 122/68 (86) 97 Intake and Output 06/17/20 06/18/20 19:00 07:00 Intake Total 610 ml 440 ml Balance 610 ml 440 ml Free Water 100 ml IV Total 600 ml 50 ml Tube Feeding 10 ml 290 ml # Voids 2 Height (Feet): 4 Height (Inches): 3.00 Weight (Pounds): 138 Cardiovascular: normal rate Respiratory/Chest: lungs clear Aftab Arnold MD Jun 18, 2020 13:42
[2020-06-18 16:00] VITALS: BP 111/53
[2020-06-18] MEDS: D5 1/2NS 1,000 ML IV SCH (19:00)
[2020-06-18 20:00] VITALS: BP 136/76
--- NOTE | 2020-06-18 23:00 | Discharge Summary ---
DATE OF ADMISSION: 06/16/2020 DATE OF DISCHARGE: 06/18/2020 CHIEF COMPLAINT: At the time was malfunctioning J-tube HOSPITAL COURSE: This is an 85-year-old female with history of end-stage renal disease on hemodialysis three times a week, who presented to the emergency room for malfunctioning J-tube. The patient is a long-term resident at [facility]. She was scheduled for tube replacement on 06/17/2020 at [place]. The patient had J-tube replaced by Dr. Perales. She also had hemodialysis done on 06/18/[address] Arnold, Nephrology. The patient had no complication following the surgery. FINAL DIAGNOSIS: Include 1. Malfunctioning J-tube. 2. End-stage renal disease on hemodialysis. 3. Hypercholesteremia. 4. Diabetes. 5. History of CVA and peripheral vascular disease. 6. History of DVT previously. DISCHARGE MEDICATIONS: The patient will be discharged back to [facility] with pain medication she had previously. DISPOSITION: The patient will be discharged to [facility] and I will be following the patient within one week. Pam Alcantar M.D. DR: Renee JOB#: [id number] CC:
== END 2020-06-18 22:30 | DRG 393 ==
LOC: EDBD 14:37 → EMR 15:13 → 4E 15:20 → EDBEDREQ 17:01
DX: K94.23 Gastrostomy malfunction (principal); N18.6 End stage renal disease; R53.2 Functional quadriplegia; I12.0 Hypertensive chronic kidney disease with stage 5 chronic kidney disease or end stage renal disease; N25.81 Secondary hyperparathyroidism of renal origin; Y83.3 Surgical operation with formation of external stoma as the cause of abnormal reaction of the patient, or of later complication, without mention of misadventure at the time of the procedure; E11.649 Type 2 diabetes mellitus with hypoglycemia without coma; Z86.73 Personal history of transient ischemic attack (TIA), and cerebral infarction without residual deficits; Z88.6 Allergy status to analgesic agent; Z66 Do not resuscitate; Z99.2 Dependence on renal dialysis; E11.22 Type 2 diabetes mellitus with diabetic chronic kidney disease; Z86.11 Personal history of tuberculosis; E78.5 Hyperlipidemia, unspecified; I73.9 Peripheral vascular disease, unspecified; Z86.718 Personal history of other venous thrombosis and embolism; E78.00 Pure hypercholesterolemia, unspecified; M10.9 Gout, unspecified; Z89.512 Acquired absence of left leg below knee; Z89.511 Acquired absence of right leg below knee; R13.10 Dysphagia, unspecified
CPT/HCPCS: 36415; 80048; 80053; 82248; 82962; 85025; 85610; 85730; 87081; 94003; 94150; 99285; J1815; U0002

== ENCOUNTER 2020-08-02 15:25 | Inpatient (IN) | payer MEDICARE, MEDICAID ==
[~2020-08-02] VITALS: Ht 144.8 cm; Wt 64.5 kg
[~2020-08-02 15:25] MED LIST changes: +NEPHROVITE1 TAB JT; +PRO-STAT LIQUID30 ML JT; +ZINC SULFATE220 M1 JT; +ZINC SULFATE220 M2 JT
[2020-08-02] MEDS ORDERED: Gastrograffin 30ml ORAL ONE (15:30)
[2020-08-02 15:31] VITALS: BP 128/68
--- NOTE | 2020-08-02 15:54 | Emergency Room Report ---
History of Present Illness General Chief Complaint: Malfunctioning Gastric Tube Source: EMS Present Illness HPI Disclaimer: Please note that this report is being documented using DRAGON technology. This can lead to erroneous entry secondary to incorrect interpretation by the dictating instrument. HPI: 85-year-old female history of ESRD on hemodialysis, dysphasia who is J- tube feed dependence, hypertension, diabetes, CVA presents for evaluation of malfunctioning J-tube. Patient had J-tube replaced on 06/17/2020 at this facility. Reportedly the tube was dislodged this morning. A 16 [place] Pos[place] was placed in the ostomy to keep patency. Patient cannot provide any history. Does not appear to be in pain or discomfort. PMH: ESRD, dysphasia, G-tube dependent feeds, hypertension, diabetes, CVA PSH: Reviewed Allergies: Gabapentin Social Hx: Cannot obtain from patient Allergies: Coded Allergies: GABAPENTIN (Unverified Allergy, Unknown, 06/14/19) COVID-19 Screening Contact w/high risk pt: No Recent Travel to affected area: No Experienced COVID-19 symptoms?: No COVID-19 Testing performed MECHANICAL AND AUTO BODY CAR CHECKER: No Nursing Documentation-PMH Hx Cardiac Problems: Yes - PNA, Anemia, Hyperlipidemia Hx Hypertension: Yes Hx Diabetes: Yes Hx Cancer: No Hx Gastrointestinal Problems: Yes - GERD Hx Dialysis: Yes - ESRD Hx Neurological Problems: Yes - Muscle weakness Hx Cerebrovascular Accident: Yes Review of Systems All Other Systems: limited - Cannot obtain from patient Physical Exam Vital Signs Date Time Temp Pulse Resp B/P (MAP) Pulse Ox O2 Delivery O2 Flow Rate FiO2 08/02/20 15:26 98.1 74 16 128/68 (88) 99 Nasal Cannula 2.0 General: Awake nonverbal, no acute distress HEENT: NC/AT. EOMI. Cardiovascular: RRR. S1 and S2 normal. No murmur appreciated Resp: Normal work of breathing. No cough, wheezing or crackles appreciated Abdomen: Abdomen is soft, nondistended. 16 [place] Posada placed in ostomy in the epigastric region. Mild surrounding blood and gastric contents. No signs of surrounding cellulitis or skin breakdown otherwise. MSK: Normal tone and bulk. Moving all extremities. No obvious deformity. 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 Will require admission for endoscopic replacement. Elevated BUN/creatinine consistent with the patient's history of ESRD. Troponin elevated though has been in the past as is BN peptide. Patient received aspirin. Will be admitted to Dr. Alcantar and Dr. Perales of GI has been consulted. Laboratory Tests Test 08/02/20 15:50 White Blood Count 5.1 K/UL (4.8-10.8) Red Blood Count 3.49 M/UL (4.20-5.40) L Hemoglobin 10.9 G/DL (12.0-16.0) L Hematocrit 34.2 % (37.0-47.0) L Mean Corpuscular Volume 98 FL (80-99) Mean Corpuscular Hemoglobin 31.2 PG (27.0-31.0) H Mean Corpuscular Hemoglobin Concent 31.8 G/DL (32.0-36.0) L Red Cell Distribution Width 18.6 % (11.6-14.8) H Platelet Count 168 K/UL (150-450) Mean Platelet Volume 7.6 FL (6.5-10.1) Neutrophils (%) (Auto) 59.6 % (45.0-75.0) Lymphocytes (%) (Auto) 19.5 % (20.0-45.0) L Monocytes (%) (Auto) 10.2 % (1.0-10.0) H Eosinophils (%) (Auto) 10.2 % (0.0-3.0) H Basophils (%) (Auto) 0.6 % (0.0-2.0) Prothrombin Time 10.8 SEC (9.30-11.50) Prothrombin Time INR 1.0 (0.9-1.1) Activated Partial Thromboplast Time 32 SEC (23-33) Sodium Level 138 MMOL/L (136-145) Potassium Level 4.1 MMOL/L (3.5-5.1) Chloride Level 98 MMOL/L (98-107) Carbon Dioxide Level 35 MMOL/L (21-32) H Anion Gap 6 mmol/L (5-15) Blood Urea Nitrogen 51 mg/dL (7-18) H Creatinine 4.6 MG/DL (0.55-1.30) H Estimated Glomerular Filtration Rate 11.0 mL/min (>60) Glucose Level 96 MG/DL (74-106) Calcium Level 9.6 MG/DL (8.5-10.1) Total Bilirubin 0.5 MG/DL (0.2-1.0) Aspartate Amino Transferase (AST) 82 U/L (15-37) H Alanine Aminotransferase (ALT) 76 U/L (12-78) Alkaline Phosphatase 239 U/L (46-116) H Troponin I 0.200 ng/mL (0.000-0.056) Pro-B-Type Natriuretic Peptide 3700 pg/mL (0-125) H Total Protein 8.6 G/DL (6.4-8.2) H Albumin 2.7 G/DL (3.4-5.0) L Globulin 5.9 g/dL Albumin/Globulin Ratio 0.5 (1.0-2.7) L Microbiology Date/Time Source Procedure Growth Status 08/02/20 15:50 Nasopharynx SARS-CoV-2 RdRp Gene Assay - Final Complete EKG Diagnostic Results EKG Time: 15:54 Rate: normal Rhythm: NSR Other Impression Sinus rhythm, slight left axis, slightly prolonged QTC at 492 ms, no obvious T wave or ST segment abnormalities Rhythm Strip Diag. Results Rhythm Strip Time: 15:54 EP Interpretation: yes Rate: 76 Rhythm: NSR, no PVC's, no ectopy Last Vital Signs Date Time Temp Pulse Resp B/P (MAP) Pulse Ox O2 Delivery O2 Flow Rate FiO2 08/02/20 15:26 98.1 74 16 128/68 (88) 99 Nasal Cannula 2.0 Disposition: ADMITTED INPATIENT Condition: Serious Finesse Ivan MD Aug 02, 2020 15:54
[2020-08-02 16:09] LABS: BASOPHILS % (AUTO) 0.6 % (0.0-2.0); EOSINOPHILS % (AUTO) 10.2 % (0.0-3.0); HEMATOCRIT 34.2 % (37.0-47.0); HEMOGLOBIN 10.9 G/DL (12.0-16.0); LYMPHOCYTES % (AUTO) 19.5 % (20.0-45.0); MEAN CORPUSCULAR VOLUME 98 FL (80-99); MONOCYTES % (AUTO) 10.2 % (1.0-10.0); NEUTROPHILS % (AUTO) 59.6 % (45.0-75.0); PLATELET COUNT 168 K/UL (150-450); RED BLOOD COUNT 3.49 M/UL (4.20-5.40); RED CELL DISTRIBUTION WIDTH 18.6 % (11.6-14.8); WHITE BLOOD COUNT 5.1 K/UL (4.8-10.8)
[2020-08-02 16:13] LABS: CALCIUM 9.6 MG/DL (8.5-10.1); CREATININE 4.6 MG/DL (0.55-1.30); POTASSIUM 4.1 MMOL/L (3.5-5.1)
[2020-08-02 16:25] LABS: ALBUMIN 2.7 G/DL (3.4-5.0); ALBUMIN/GLOBULIN RATIO 0.5 (1.0-2.7); BILIRUBIN,TOTAL 0.5 MG/DL (0.2-1.0)
[2020-08-02] MEDS ORDERED: NEPHROVITE1 TAB JT (16:37)
[2020-08-02] MEDS ORDERED: OMEPRAZOLE40 M1 GT (16:37)
[2020-08-02] MEDS ORDERED: HYDRALAZINE HCL25 M2 GT (16:37)
[2020-08-02] MEDS ORDERED: PRAVASTATIN SOD20 M1 JT (16:37)
[2020-08-02] MEDS ORDERED: ASPIRIN EC81 MG GT (16:37)
[2020-08-02] MEDS ORDERED: FOLIC ACID1 MG GT (16:37)
[2020-08-02] MEDS ORDERED: Aspirin Baby 81mg ORAL ONE (16:45)
--- NOTE | 2020-08-02 17:27 | General Progress Note ---
Assessment/Plan Assessment/Plan: 1. dislodged J tube - Dr Ballard consulted for disloged J tube replacement. 2. ESRD - consult Renal for HD with Dr brand. last HD yesterday. 3. Full dictation to follow. Subjective Date patient seen: Aug 02, 2020 Time patient seen: 04:50 Constitutional: Reports: no symptoms HEENT: Reports: no symptoms Cardiovascular: Reports: no symptoms Respiratory: Reports: no symptoms Gastrointestinal/Abdominal: Reports: other - disloged J tube Genitourinary: Reports: no symptoms Neurologic/Psychiatric: Reports: no symptoms Endocrine: Reports: no symptoms Hematologic/Lymphatic: Reports: no symptoms Allergies: Coded Allergies: GABAPENTIN (Unverified Allergy, Unknown, 06/14/19) Subjective [facility]. Objective Last 24 Hour Vital Signs Date Time Temp Pulse Resp B/P (MAP) Pulse Ox O2 Delivery O2 Flow Rate FiO2 08/02/20 15:31 98.1 74 16 128/68 99 Nasal Cannula 2.0 08/02/20 15:26 98.1 74 16 128/68 (88) 99 Nasal Cannula 2.0 Laboratory Tests 08/02/20 15:50: White Blood Count 5.1, Red Blood Count 3.49L, Hemoglobin 10.9L, Hematocrit 34.2L , Mean Corpuscular Volume 98, Mean Corpuscular Hemoglobin 31.2H, Mean Corpuscular Hemoglobin Concent 31.8L, Red Cell Distribution Width 18.6H, Platelet Count 168, Mean Platelet Volume 7.6, Neutrophils (%) (Auto) 59.6, Lymphocytes (%) (Auto) 19.5L, Monocytes (%) (Auto) 10.2H, Eosinophils (%) (Auto ) 10.2H, Basophils (%) (Auto) 0.6, Prothrombin Time 10.8, Prothromb Time International Ratio 1.0, Activated Partial Thromboplast Time 32, Sodium Level 138, Potassium Level 4.1, Chloride Level 98, Carbon Dioxide Level 35H, Anion Gap 6, Blood Urea Nitrogen 51H, Creatinine 4.6H, Estimat Glomerular Filtration Rate 11.0, Glucose Level 96, Calcium Level 9.6, Total Bilirubin 0.5, Aspartate Amino Transf (AST/SGOT) 82H, Alanine Aminotransferase (ALT/SGPT) 76, Alkaline Phosphatase 239H, Troponin I 0.200H, Pro-B-Type Natriuretic Peptide 3700H, Total Protein 8.6H, Albumin 2.7L, Globulin 5.9, Albumin/Globulin Ratio 0.5L Height (Feet): 5 Weight (Pounds): 160 Pam Alcantar MD Aug 02, 2020 17:27
[2020-08-02 17:46] VITALS: BP 118/54
[2020-08-02 21:00] VITALS: BP 133/60
[2020-08-02] MEDS ORDERED: [UNRECOGNIZED DRUG - OTHER] JT (22:10)
[2020-08-02] MEDS ORDERED: ASPIRIN81 MG JT (22:10)
[2020-08-02] MEDS ORDERED: VITAMIN C250 MG JT (22:10)
[2020-08-02] MEDS ORDERED: [UNRECOGNIZED DRUG - OTHER] JT (22:10)
[2020-08-02] MEDS ORDERED: Sennosides 8.6mg tab NG PRN (23:00)
--- NOTE | 2020-08-02 23:58 | Diagnostic Imaging Report ---
EXAM: XR Abdomen, 2 Views CLINICAL HISTORY: NGT TECHNIQUE: Frontal view of the abdomen/pelvis with upright view of the abdomen. COMPARISON: No previous study. FINDINGS: Lower thorax: Calcified left perihilar lymph node. Intraperitoneal space: No free air. Gastrointestinal tract: Unremarkable. No dilation. Bones/joints: Osteopenia. Vasculature: IVC filter is noted in place. Atherosclerotic disease of the aortic knob. Tubes, lines and devices: NG tube is noted in place with its tip well below the diaphragm in the expected location of the gastric antrum. Other findings: Hypoaeration P IMPRESSION: NG tube is in good position.
[2020-08-03] VITALS (7 sets, daily range): BP systolic 118–154; BP diastolic 32–69
[2020-08-03 05:38] LABS: BASOPHILS % (AUTO) 0.7 % (0.0-2.0); EOSINOPHILS % (AUTO) 9.1 % (0.0-3.0); HEMATOCRIT 36.3 % (37.0-47.0); HEMOGLOBIN 11.3 G/DL (12.0-16.0); LYMPHOCYTES % (AUTO) 16.8 % (20.0-45.0); MEAN CORPUSCULAR VOLUME 96 FL (80-99); MONOCYTES % (AUTO) 12.3 % (1.0-10.0); NEUTROPHILS % (AUTO) 61.1 % (45.0-75.0); PLATELET COUNT 187 K/UL (150-450); RED BLOOD COUNT 3.78 M/UL (4.20-5.40); RED CELL DISTRIBUTION WIDTH 17.1 % (11.6-14.8); WHITE BLOOD COUNT 5.5 K/UL (4.8-10.8)
[2020-08-03 05:45] LABS: CALCIUM 9.4 MG/DL (8.5-10.1); CREATININE 5.6 MG/DL (0.55-1.30); POTASSIUM 4.1 MMOL/L (3.5-5.1)
[2020-08-03] MEDS ORDERED: Heparin Sod 1000 units/ml 10ml IV PRN (06:00)
[2020-08-03] MEDS: NovoLOG Insulin Flexpen SUBQ SCH ×4 (06:30→21:00)
[2020-08-03] MEDS: Miralax 17gm pkt NG SCH (08:48)
[2020-08-03] MEDS: timoloL maleate 0.5% Op Soln 2.5ml BOTH EYES SCH ×2 (08:48→18:04)
[2020-08-03] MEDS: Nephrovite tab (Rena-Vite) NG SCH (08:48)
[2020-08-03] MEDS: Aspirin Baby 81mg NG SCH (08:48)
[2020-08-03] MEDS ORDERED: Heparin 5000 units/ml inj SUBQ SCH (09:00)
--- NOTE | 2020-08-03 10:22 | General Progress Note ---
Assessment/Plan Status: stable Assessment/Plan: 1. dislodged J tube - Replacement for disloged J tube on wednesday per GI. 2. ESRD - consult Renal for HD with Dr brand. HD scheduled for today. 3. Elevated Troponin 2nd ESRD - improving. 4. HLD - cont home med. 5. DM II - cont SSI. 6. Anemia of chronic disease 7. Gout 8. H/o CVA 9. H/o PAD s/p AKA bilaterally. Subjective Date patient seen: Aug 03, 2020 Constitutional: Reports: no symptoms HEENT: Reports: no symptoms Cardiovascular: Reports: no symptoms Respiratory: Reports: cough Gastrointestinal/Abdominal: Reports: no symptoms Genitourinary: Reports: no symptoms Neurologic/Psychiatric: Reports: no symptoms Endocrine: Reports: no symptoms Hematologic/Lymphatic: Reports: no symptoms Allergies: Coded Allergies: GABAPENTIN (Unverified Allergy, Unknown, 06/14/19) Subjective This morning she had productive coughing per nursing. No fever or chills. No sob or chest pain. No nausea or vomiting. Objective Last 24 Hour Vital Signs Date Time Temp Pulse Resp B/P (MAP) Pulse Ox O2 Delivery O2 Flow Rate FiO2 08/03/20 08:00 77 08/03/20 08:00 97.9 76 20 146/60 (88) 96 08/03/20 04:00 81 08/03/20 04:00 97.5 81 20 154/62 (92) 98 08/03/20 00:00 97.8 78 18 135/69 (91) 99 08/03/20 00:00 78 08/02/20 22:43 Room Air 08/02/20 21:00 97.7 74 20 133/60 (84) 100 08/02/20 21:00 74 08/02/20 18:35 98.5 85 14 125/72 100 Nasal Cannula 2.0 08/02/20 17:46 98.1 73 15 118/54 100 Nasal Cannula 2.0 08/02/20 15:31 98.1 74 16 128/68 99 Nasal Cannula 2.0 08/02/20 15:26 98.1 74 16 128/68 (88) 99 Nasal Cannula 2.0 Intake and Output 08/02/20 08/03/20 19:00 07:00 Intake Total 0 ml Balance 0 ml Intake Oral 0 ml # Voids 1 # Bowel Movements 1 Laboratory Tests 08/02/20 15:50: White Blood Count 5.1, Red Blood Count 3.49L, Hemoglobin 10.9L, Hematocrit 34.2L , Mean Corpuscular Volume 98, Mean Corpuscular Hemoglobin 31.2H, Mean Corpuscular Hemoglobin Concent 31.8L, Red Cell Distribution Width 18.6H, Platelet Count 168, Mean Platelet Volume 7.6, Neutrophils (%) (Auto) 59.6, Lymphocytes (%) (Auto) 19.5L, Monocytes (%) (Auto) 10.2H, Eosinophils (%) (Auto ) 10.2H, Basophils (%) (Auto) 0.6, Prothrombin Time 10.8, Prothromb Time International Ratio 1.0, Activated Partial Thromboplast Time 32, Sodium Level 138, Potassium Level 4.1, Chloride Level 98, Carbon Dioxide Level 35H, Anion Gap 6, Blood Urea Nitrogen 51H, Creatinine 4.6H, Estimat Glomerular Filtration Rate 11.0, Glucose Level 96, Calcium Level 9.6, Total Bilirubin 0.5, Aspartate Amino Transf (AST/SGOT) 82H, Alanine Aminotransferase (ALT/SGPT) 76, Alkaline Phosphatase 239H, Troponin I 0.200H, Pro-B-Type Natriuretic Peptide 3700H, Total Protein 8.6H, Albumin 2.7L, Globulin 5.9, Albumin/Globulin Ratio 0.5L 08/03/20 03:00: White Blood Count 5.5, Red Blood Count 3.78L, Hemoglobin 11.3L, Hematocrit 36.3L , Mean Corpuscular Volume 96, Mean Corpuscular Hemoglobin 29.9, Mean Corpuscular Hemoglobin Concent 31.1L, Red Cell Distribution Width 17.1H, Platelet Count 187, Mean Platelet Volume 7.3, Neutrophils (%) (Auto) 61.1, Lymphocytes (%) (Auto) 16.8L, Monocytes (%) (Auto) 12.3H, Eosinophils (%) (Auto ) 9.1H, Basophils (%) (Auto) 0.7, Sodium Level 138, Potassium Level 4.1, Chloride Level 99, Carbon Dioxide Level 33H, Anion Gap 6, Blood Urea Nitrogen 60H, Creatinine 5.6H, Estimat Glomerular Filtration Rate 8.8, Glucose Level 91, Calcium Level 9.4, Troponin I 0.188H 08/03/20 06:45: POC Whole Blood Glucose 86 Height (Feet): 5 Height (Inches): 0.00 Weight (Pounds): 139 General Appearance: no apparent distress, alert EENT: normal ENT inspection Neck: non-tender, supple Cardiovascular: normal rate, regular rhythm Respiratory/Chest: lungs clear, normal breath sounds, no respiratory distress Abdomen: non tender, soft Extremities: non-tender, other - Above the knee amputation bilaterally Edema: no edema noted Arm (L), no edema noted Arm (R) Neurologic: alert, responsive Skin: warm/dry Pam Alcantar MD Aug 03, 2020 10:22
[2020-08-03] MEDS ORDERED: Albuterol/Ipratropium 3ml neb HHN PRN (10:30)
--- NOTE | 2020-08-03 11:11 | Diagnostic Imaging Report ---
EXAM: XR Chest, 1 View CLINICAL HISTORY: COUGH TECHNIQUE: Frontal view of the chest. COMPARISON: Chest radiograph On 05/25/2020 FINDINGS: Hardware: None. Lungs/pleura: Mild bibasilar atelectasis. Prominent lung markings. No focal consolidation. No pleural effusion or pneumothorax. Heart/mediastinum: Atherosclerotic calcifications in the aorta. Calcified left hilar lymph nodes.. Mild enlargement of the cardiac silhouette. Soft tissues: Unremarkable. Bones: No acute fracture. Upper abdomen: Normal. Other: Stent again projected over the right upper lung. IMPRESSION: Mild bibasilar atelectasis. Prominent lung markings may be secondary to technique versus pulmonary vasculature congestion versus infectious/inflammatory process.
--- NOTE | 2020-08-03 12:14 | History and Physical Report ---
DATE OF ADMISSION: 08/02/2020 CHIEF COMPLAINT: Dislodged J-tube. HISTORY OF PRESENT ILLNESS: This is an 85-year-old female with history of end-stage renal disease, on hemodialysis three times a week, hypertension, diabetes, hyperlipidemia, peripheral vascular disease, history of CVA and DVT and history of anemia of chronic disease and gout, who was brought in from [facility] for dislodged J-tube. The patient is a paraplegic, status post bilateral jwust-vam-lidv amputation secondary to peripheral vascular disease. She was brought in to the ER and was admitted for replacement of the J-tube as inpatient. PAST MEDICAL HISTORY: Includes history of end-stage renal disease, on hemodialysis, hypertension, diabetes, hyperlipidemia, peripheral vascular disease, history of CVA, DVT, anemia of chronic disease, gout, and functional paraplegia. PAST SURGICAL HISTORY: Bilateral qapgw-qjr-jckr amputation. ALLERGIES: Gabapentin. SOCIAL HISTORY: The patient lives in [facility] for long-term care. No history of alcohol or drug use. FAMILY HISTORY: Noncontributory. REVIEW OF SYSTEMS: Negative except for HPI. PHYSICAL EXAMINATION: VITAL SIGNS: Temperature of 98.1, pulse 74, respirations 16, blood pressure 128/68, pulse ox 99% on 2 L nasal cannula. GENERAL APPEARANCE: Alert and responsive, in no acute distress. HEENT: Normocephalic and normochromic. Extraocular muscles intact. Throat is clear. CARDIOVASCULAR: Regular rate and rhythm. No murmur. No gallop. ABDOMEN: Soft, nontender, and nondistended. Positive bowel sounds. LUNGS: Clear to auscultation bilaterally. EXTREMITIES: No edema, cyanosis or clubbing. On the lower extremity, she has bilateral mkukv-lkb-dguq amputation. NEUROLOGIC: Awake, but nonverbal. LABORATORY AND DIAGNOSTIC DATA: Sodium 138, potassium 4.1, chloride 98, bicarb 35, BUN 51, creatinine 4.6, glucose 96, calcium 9.6, AST 82, ALT 76. Troponin 2. Alkaline phosphatase is 239, albumin 2.7. WBC 5.1, hemoglobin 10.9, hematocrit 34.2, platelet count 168, neutrophils 59, lymphocytes 19.5. PT is 10.8, INR 1, PTT 32. COVID-19 was done in the ER was negative. EKG showed normal sinus rhythm with premature atrial complexes. Also old Q-wave in the inferior lead. IMPRESSION AND PLAN: 1. The patient will be admitted for a dislodged J-tube replacement and will be followed up with Dr. Perales, as inpatient. 2. End-stage renal disease. We will have Dr. Arnold, see the patient for hemodialysis. 3. Hyperlipidemia and diabetes. We will keep the patient on sliding scale for diabetes and continue home medications for hyperlipidemia. 4. History of anemia of chronic disease, gout, and history of CVA. 5. History of PAD, status post [id number]-[id number] amputation bilaterally. We will continue medications from the intermediate at this point. The patient will be admitted for a minimum of two-night stay for dislodged J-tube to be replaced on Wednesday per GI Dr. Perales. Pam Alcantar M.D. DR: TANMAY JOB#: [id number] CC:
[2020-08-03] MEDS ORDERED: Azithromycin 500 MG in NS 275 ML IV ONE ×2 (15:00→15:15)
[2020-08-03 19:54] LABS: BASOPHILS % (AUTO) 0.9 % (0.0-2.0); EOSINOPHILS % (AUTO) 5.9 % (0.0-3.0); HEMATOCRIT 36.9 % (37.0-47.0); HEMOGLOBIN 11.3 G/DL (12.0-16.0); LYMPHOCYTES % (AUTO) 15.2 % (20.0-45.0); MEAN CORPUSCULAR VOLUME 99 FL (80-99); MONOCYTES % (AUTO) 8.7 % (1.0-10.0); NEUTROPHILS % (AUTO) 69.3 % (45.0-75.0); PLATELET COUNT 178 K/UL (150-450); RED BLOOD COUNT 3.72 M/UL (4.20-5.40); RED CELL DISTRIBUTION WIDTH 18.2 % (11.6-14.8); WHITE BLOOD COUNT 5.1 K/UL (4.8-10.8)
[2020-08-03 20:33] LABS: CALCIUM 9.8 MG/DL (8.5-10.1); CREATININE 3.1 MG/DL (0.55-1.30); POTASSIUM 3.9 MMOL/L (3.5-5.1)
--- NOTE | 2020-08-03 22:31 | Diagnostic Imaging Report ---
EXAM: XR Abdomen, 2 Views CLINICAL HISTORY: SOB TECHNIQUE: Frontal view of the abdomen/pelvis with upright view of the abdomen. COMPARISON: 08/02/2020 FINDINGS: Intraperitoneal space: No free air. Gastrointestinal tract: Paucity of bowel gas without obstructive pattern. In the proper context, this could be seen with obstructed fluid- filled bowel loops, correlate with presentation. Bones/joints: Degenerative spine findings and osteopenia. Vasculature: IVC filter. Tubes, lines and devices: Enteric tube retraction, tip and proximal side-port likely within the gastric fundus. Other findings: Advanced ASVD. IMPRESSION: 1. Enteric tube retraction, tip and proximal side-port likely within the gastric fundus. 2. Recommend advancement of enteric tube approximately 5 cm to ensure adequate gastric decompression. 3. Paucity of bowel gas without obstructive pattern. In the proper context, this could be seen with obstructed fluid-filled bowel loops, correlate with presentation. 4. IVC filter. 5. Advanced ASVD.
--- NOTE | 2020-08-03 23:14 | Consultation ---
DATE OF CONSULTATION: 08/03/2020 NEPHROLOGY CONSULTATION CONSULTING PHYSICIAN: Aftab Arnold MD REFERRING PHYSICIAN: Pam Alcantar MD REASON FOR CONSULTATION: End-stage renal disease, requiring hemodialysis. HISTORY OF PRESENT ILLNESS: This 85-year-old female is known to me from previous admission. The patient has a history of end-stage renal disease, on hemodialysis every Wednesday, , and Wednesday. She was admitted from the custodial because of dislodged J-tube. She is unable to provide any history. History was obtained from records. PAST MEDICAL HISTORY: Includes history of hypertension, diabetes, hyperlipidemia, peripheral vascular disease. The patient is status post bilateral above-knee amputation. The patient is status post J-tube placement for feeding, history of CVA, DVT, anemia, gout, and functional paraplegia. MEDICATIONS: Reviewed in [employer]. SOCIAL HISTORY: The patient lives in [facility]. No history of alcohol abuse or smoking. ALLERGIES: Reported to gabapentin. REVIEW OF SYSTEMS: Unobtainable. PHYSICAL EXAMINATION: GENERAL: The patient is an elderly female. She opens eyes, nonverbal. VITAL SIGNS: Blood pressure 131/62, pulse 87, temperature 97.9, and respiratory rate is 20. HEENT: [place] conjunctivae. Anicteric sclerae. NECK: Supple. LUNGS: Crackles throughout both lung haq. HEART: S1 and S2 without murmurs or rubs. ABDOMEN: Soft and nontender. EXTREMITIES: Bilateral above knee amputation. Right upper arm fistula. LABORATORY FINDINGS: CBC shows WBC of 5100, hematocrit 36.9, hemoglobin is 11.3, platelets 178,000. Chemistry panel shows serum sodium 135, potassium 3.9, chloride 95, BUN is 27, creatinine 3.1, glucose is 113, and calcium is 9.8. ASSESSMENT: This is an 85-year-old female who was admitted because her J-tube was dislodged. She has a history of end-stage renal disease, on hemodialysis every Wednesday, , and Wednesday. She was dialyzed earlier today. She still has abnormal lung sounds and crackles mostly. Her blood pressure is controlled. She has COVID-19 negative yesterday, chest x-ray shows mild bibasillar atelectasis, prominent lung markings. PLAN: The patient was dialyzed today. Despite dialysis, she has still crackles. The question is if she is aspirating. In terms of her medications, she is on Nephro-Xavier daily. She is not on any phosphate binders and we do not have any phosphorus level since admission. She is not on erythropoietin at this time. However, her hematocrit is normal. In addition, she is also getting breathing treatments and antibiotics. Case will be discussed with Dr. Perales and Dr. Alcantar, specifically if it is safe to continue the tube feeding, which the patient is getting through the NG at this point. Thank you very much, Dr. Alcantar for this consultation. Aftab Arnold M.D. DR: Jenn JOB#: [id number] CC: BHANU
[2020-08-03] MEDS: Piperacillin/Tazobactam 2.25 GM in D5W 55 ML IVPB SCH (23:40)
[2020-08-04] VITALS: BP 115/60
[2020-08-04 03:28] LABS: BASOPHILS % (AUTO) 1.1 % (0.0-2.0); EOSINOPHILS % (AUTO) 4.3 % (0.0-3.0); HEMATOCRIT 36.8 % (37.0-47.0); HEMOGLOBIN 11.5 G/DL (12.0-16.0); LYMPHOCYTES % (AUTO) 17.5 % (20.0-45.0); MEAN CORPUSCULAR VOLUME 96 FL (80-99); MONOCYTES % (AUTO) 7.4 % (1.0-10.0); NEUTROPHILS % (AUTO) 69.9 % (45.0-75.0); PLATELET COUNT 188 K/UL (150-450); RED BLOOD COUNT 3.83 M/UL (4.20-5.40); RED CELL DISTRIBUTION WIDTH 17.3 % (11.6-14.8); WHITE BLOOD COUNT 4.9 K/UL (4.8-10.8)
[2020-08-04 03:36] LABS: CALCIUM 9.7 MG/DL (8.5-10.1); CREATININE 3.9 MG/DL (0.55-1.30); POTASSIUM 4.7 MMOL/L (3.5-5.1)
[2020-08-04 04:00] VITALS: BP 120/62
[2020-08-04] MEDS: NovoLOG Insulin Flexpen SUBQ SCH ×4 (06:30→21:00)
[2020-08-04] MEDS: Piperacillin/Tazobactam 2.25 GM in D5W 55 ML IVPB SCH ×2 (06:53→16:00)
[2020-08-04 08:00] VITALS: BP 103/46
[2020-08-04] MEDS: Aspirin Baby 81mg NG SCH (09:00)
[2020-08-04] MEDS ORDERED: Azithromycin 250mg tab NG SCH (09:00)
[2020-08-04] MEDS: Nephrovite tab (Rena-Vite) NG SCH (09:00)
[2020-08-04] MEDS: Miralax 17gm pkt NG SCH (09:00)
--- NOTE | 2020-08-04 09:22 | Diagnostic Imaging Report ---
EXAM: XR Chest, 1 View CLINICAL HISTORY: COUGH TECHNIQUE: Frontal view of the chest. COMPARISON: 08/03/20. FINDINGS: Lungs: Slightly limited due to hypoventilation. No clear consolidation. Pleural space: Unremarkable. No pneumothorax. Heart/mediastinum: Right subclavian/brachiocephalic venous stent Calcified aorta. Calcified mediastinal/hilar lymph nodes consistent with prior granulomatous exposure.. Bones/joints: Unremarkable. IMPRESSION: Slightly limited due to hypoventilation. No clear consolidation.
[2020-08-04] MEDS: timoloL maleate 0.5% Op Soln 2.5ml BOTH EYES SCH ×2 (09:49→18:26)
[2020-08-04] MEDS ORDERED: Albuterol/Ipratropium 3ml neb HHN PRN (10:30)
--- NOTE | 2020-08-04 10:34 | General Progress Note ---
Assessment/Plan Status: stable Assessment/Plan: 1. dislodged J tube - Replacement for disloged J tube on wednesday per GI. 2. ESRD - consult Renal for HD with Dr brand. HD done yesterday. 3. Elevated Troponin 2nd ESRD - improved. 4. Possible Asp pneumonia - cont Zosyn IV and consult ID. Duoneb q 6 hrs prn 5, HLD - cont home med. 6. DM II - cont SSI. 7. Anemia of chronic disease 8. Gout 9. H/o CVA 10. H/o PAD s/p AKA bilaterally. Subjective Date patient seen: Aug 04, 2020 Time patient seen: 10:15 Constitutional: Reports: no symptoms HEENT: Reports: no symptoms Cardiovascular: Reports: no symptoms Respiratory: Reports: cough Gastrointestinal/Abdominal: Reports: no symptoms Genitourinary: Reports: no symptoms Neurologic/Psychiatric: Reports: no symptoms Endocrine: Reports: no symptoms Hematologic/Lymphatic: Reports: anemia Allergies: Coded Allergies: GABAPENTIN (Unverified Allergy, Unknown, 06/14/19) Subjective This morning she had coughing and load gargling sound with breathing per nursing that improved with suctioning. Her NG tube was out last night. She also had crackles last night after dialysis. No fever or chills. No sob. No nausea or vomiting. Objective Last 24 Hour Vital Signs Date Time Temp Pulse Resp B/P (MAP) Pulse Ox O2 Delivery O2 Flow Rate FiO2 08/04/20 08:00 97.9 90 20 103/46 (65) 100 08/04/20 04:00 81 08/04/20 04:00 98.5 82 20 120/62 (81) 96 08/04/20 00:00 98.8 85 20 115/60 (78) 97 08/04/20 00:00 84 08/03/20 21:19 87 22 99 Room Air 21 88 24 94 08/03/20 21:00 Room Air 08/03/20 20:00 87 08/03/20 20:00 98.2 87 18 123/66 (85) 96 08/03/20 18:00 87 131/62 (85) 08/03/20 16:00 97.9 73 20 118/32 (60) 94 08/03/20 16:00 83 08/03/20 12:00 71 08/03/20 12:00 97.9 73 20 154/63 (93) 94 Intake and Output 08/03/20 08/04/20 19:00 07:00 Intake Total 0 ml Output Total 1000 ml Balance -1000 ml 0 ml Intake Oral 0 ml Output Hemodialysis UF 1000 ml # Bowel Movements 1 2 Laboratory Tests 08/03/20 11:20: Troponin I 0.149H 08/03/20 12:22: POC Whole Blood Glucose 97 08/03/20 19:45: Troponin I 0.164H, White Blood Count 5.1, Red Blood Count 3.72L, Hemoglobin 11.3L, Hematocrit 36.9L, Mean Corpuscular Volume 99, Mean Corpuscular Hemoglobin 30.4, Mean Corpuscular Hemoglobin Concent 30.6L, Red Cell Distribution Width 18.2H, Platelet Count 178, Mean Platelet Volume 7.1, Neutrophils (%) (Auto) 69.3, Lymphocytes (%) (Auto) 15.2L, Monocytes (%) (Auto) 8.7, Eosinophils (%) (Auto) 5.9H, Basophils (%) (Auto) 0.9, Sodium Level 135L, Potassium Level 3.9, Chloride Level 95L, Carbon Dioxide Level 32, Anion Gap 8, Blood Urea Nitrogen 27H, Creatinine 3.1H, Estimat Glomerular Filtration Rate 17.3, Glucose Level 113H, Calcium Level 9.8 08/03/20 22:12: POC Whole Blood Glucose 121H 08/04/20 03:20: White Blood Count 4.9, Red Blood Count 3.83L, Hemoglobin 11.5L, Hematocrit 36.8L , Mean Corpuscular Volume 96, Mean Corpuscular Hemoglobin 29.9, Mean Corpuscular Hemoglobin Concent 31.1L, Red Cell Distribution Width 17.3H, Platelet Count 188, Mean Platelet Volume 6.9, Neutrophils (%) (Auto) 69.9, Lymphocytes (%) (Auto) 17.5L, Monocytes (%) (Auto) 7.4, Eosinophils (%) (Auto) 4.3H, Basophils (%) (Auto) 1.1, Sodium Level 135L, Potassium Level 4.7, Chloride Level 95L, Carbon Dioxide Level 31, Anion Gap 9, Blood Urea Nitrogen 33H, Creatinine 3.9H, Estimat Glomerular Filtration Rate 13.3, Glucose Level 92 , Calcium Level 9.7, Troponin I 0.131H 08/04/20 03:41: POC Whole Blood Glucose 97 Height (Feet): 5 Height (Inches): 0.00 Weight (Pounds): 139 General Appearance: no apparent distress, alert EENT: normal ENT inspection Neck: non-tender, supple Cardiovascular: normal rate, regular rhythm Respiratory/Chest: no respiratory distress, crackles/rales Abdomen: non tender, soft Extremities: non-tender Edema: no edema noted Arm (L), no edema noted Arm (R) Neurologic: alert, responsive Skin: warm/dry Pam Alcantar MD Aug 04, 2020 10:34
--- NOTE | 2020-08-04 11:30 | Infectious Diseases Prog Note ---
Assessment/Plan Problems: (1) Aspiration pneumonia Assessment & Plan: continue Zosyn empiric coverage for 8 days, add vancomycin since MRSA naris is positive, send sputum culture, aspiration precaution keep head of bed more than 30 all the time (2) Colonization with VRE (vancomycin-resistant enterococcus) Assessment & Plan: keep patient in contact isolation (3) MRSA nasal colonization Assessment & Plan: keep patient in contact isolation (4) DM (diabetes mellitus) Assessment & Plan: recommend tight glycemic control to keep blood glucose between 80-120 (5) ESRD (end stage renal disease) on dialysis Assessment & Plan: continue hemodialysis as per renal service monitor daily weight (6) Malfunctioning jejunostomy tube Assessment & Plan: continue local site care with dressing and keep clean and dry to avoid infection pending placement of new tube on Wednesday, already on Zosyn treatment Subjective Allergies: Coded Allergies: GABAPENTIN (Unverified Allergy, Unknown, 06/14/19) Objective Last 24 Hour Vital Signs Date Time Temp Pulse Resp B/P (MAP) Pulse Ox O2 Delivery O2 Flow Rate FiO2 08/04/20 08:00 97.9 90 20 103/46 (65) 100 08/04/20 08:00 95 08/04/20 04:00 81 08/04/20 04:00 98.5 82 20 120/62 (81) 96 08/04/20 00:00 98.8 85 20 115/60 (78) 97 08/04/20 00:00 84 08/03/20 21:19 87 22 99 Room Air 21 88 24 94 08/03/20 21:00 Room Air 08/03/20 20:00 87 08/03/20 20:00 98.2 87 18 123/66 (85) 96 08/03/20 18:00 87 131/62 (85) 08/03/20 16:00 97.9 73 20 118/32 (60) 94 08/03/20 16:00 83 08/03/20 12:00 71 08/03/20 12:00 97.9 73 20 154/63 (93) 94 Height (Feet): 5 Height (Inches): 0.00 Weight (Pounds): 139 Microbiology Date/Time Source Procedure Growth Status 08/02/20 16:15 Nasal Nares MRSA Culture - Final Staphylococcus Aureus - Mrsa Complete 08/02/20 15:50 Nasopharynx SARS-CoV-2 RdRp Gene Assay - Final Complete 08/02/20 16:15 Rectum VRE Culture - Final Enterococcus Faecalis - Vre Complete Laboratory Tests Test 08/03/20 12:22 08/03/20 19:45 08/03/20 22:12 08/04/20 03:20 POC Whole Blood Glucose 97 MG/DL (74-106) 121 MG/DL (74-106) H White Blood Count 5.1 K/UL (4.8-10.8) 4.9 K/UL (4.8-10.8) Red Blood Count 3.72 M/UL (4.20-5.40) L 3.83 M/UL (4.20-5.40) L Hemoglobin 11.3 G/DL (12.0-16.0) L 11.5 G/DL (12.0-16.0) L Hematocrit 36.9 % (37.0-47.0) L 36.8 % (37.0-47.0) L Mean Corpuscular Volume 99 FL (80-99) 96 FL (80-99) Mean Corpuscular Hemoglobin 30.4 PG (27.0-31.0) 29.9 PG (27.0-31.0) Mean Corpuscular Hemoglobin Concent 30.6 G/DL (32.0-36.0) L 31.1 G/DL (32.0-36.0) L Red Cell Distribution Width 18.2 % (11.6-14.8) H 17.3 % (11.6-14.8) H Platelet Count 178 K/UL (150-450) 188 K/UL (150-450) Mean Platelet Volume 7.1 FL (6.5-10.1) 6.9 FL (6.5-10.1) Neutrophils (%) (Auto) 69.3 % (45.0-75.0) 69.9 % (45.0-75.0) Lymphocytes (%) (Auto) 15.2 % (20.0-45.0) L 17.5 % (20.0-45.0) L Monocytes (%) (Auto) 8.7 % (1.0-10.0) 7.4 % (1.0-10.0) Eosinophils (%) (Auto) 5.9 % (0.0-3.0) H 4.3 % (0.0-3.0) H Basophils (%) (Auto) 0.9 % (0.0-2.0) 1.1 % (0.0-2.0) Sodium Level 135 MMOL/L (136-145) L 135 MMOL/L (136-145) L Potassium Level 3.9 MMOL/L (3.5-5.1) 4.7 MMOL/L (3.5-5.1) Chloride Level 95 MMOL/L (98-107) L 95 MMOL/L (98-107) L Carbon Dioxide Level 32 MMOL/L (21-32) 31 MMOL/L (21-32) Anion Gap 8 mmol/L (5-15) 9 mmol/L (5-15) Blood Urea Nitrogen 27 mg/dL (7-18) H 33 mg/dL (7-18) H Creatinine 3.1 MG/DL (0.55-1.30) H 3.9 MG/DL (0.55-1.30) H Estimat Glomerular Filtration Rate 17.3 mL/min (>60) 13.3 mL/min (>60) Glucose Level 113 MG/DL (74-106) H 92 MG/DL (74-106) Calcium Level 9.8 MG/DL (8.5-10.1) 9.7 MG/DL (8.5-10.1) Troponin I 0.164 ng/mL (0.000-0.056) 0.131 ng/mL (0.000-0.056) Test 08/04/20 03:41 POC Whole Blood Glucose 97 MG/DL (74-106) Current Medications Medications (Trade) Dose Ordered Sig/Selene Route PRN Reason Start Time Stop Time Status Last Admin Dose Admin Albuterol/ Ipratropium (Albuterol/ Ipratropium) 3 ml Q6HRT PRN HHN Shortness of Breath 08/04/20 10:30 08/09/20 10:29 Aspirin (ASA) 81 mg DAILY NG 08/03/20 09:00 09/17/20 08:59 08/03/20 08:48 Dextrose (Dextrose 50%) 25 ml Q30M PRN IV Hypoglycemia 08/03/20 03:00 11/01/20 02:59 Dextrose (Dextrose 50%) 50 ml Q30M PRN IV Hypoglycemia 08/03/20 03:00 11/01/20 02:59 Folic Acid (Folate) 1 mg DAILY NG 08/03/20 09:00 09/02/20 08:59 08/03/20 08:48 Insulin Aspart (NovoLOG) BEFORE MEALS AND HS SUBQ 08/03/20 06:30 11/01/20 06:29 Piperacillin Sod/ Tazobactam Sod 2.25 gm/Dextrose 55 ml @ 110 mls/hr Q8HR IVPB 08/03/20 22:00 08/08/20 21:59 08/04/20 06:53 Polyethylene Glycol (Miralax) 17 gm DAILY NG 08/03/20 09:00 09/02/20 08:59 08/03/20 08:48 Pravastatin Sodium (Pravachol) 20 mg BEDTIME NG 08/03/20 21:00 09/02/20 20:59 Sennosides (Senokot) 17.2 mg Q24H PRN NG CONSTIPATION 08/02/20 23:00 09/01/20 22:59 Timolol Maleate (timoloL maleate 0.5% Op Soln) 1 drop BID BOTH EYES 08/03/20 09:00 09/02/20 08:59 08/04/20 09:49 Vitamin B Complex/ Vit C/Folic Acid (Nephrovite) 1 tab DAILY NG 08/03/20 09:00 09/02/20 08:59 08/03/20 08:48 Morteza Castillo M.D. Aug 04, 2020 11:30
--- NOTE | 2020-08-04 11:56 | Nephrology Progress Note ---
Assessment/Plan Plan #ESRD on HD- #HTN #Anemia of CKD #dislodged J tube - #Possible Asp pneumonia #, HLD - # DM II - cont SSI. #Gout # H/o CVA # H/o PAD s/p AKA bilaterally. next Hd wednesday Replacement for disloged J tube on wednesday per GI. continue with antibiotics monitor phos continue breathing tx Time spent 45 min Subjective ROS Limited/Unobtainable: Yes Subjective Coverage for Dr. Arnold s/p HD yesterday Objective Objective Last 24 Hour Vital Signs Date Time Temp Pulse Resp B/P (MAP) Pulse Ox O2 Delivery O2 Flow Rate FiO2 08/04/20 08:00 97.9 90 20 103/46 (65) 100 08/04/20 08:00 95 08/04/20 04:00 81 08/04/20 04:00 98.5 82 20 120/62 (81) 96 08/04/20 00:00 98.8 85 20 115/60 (78) 97 08/04/20 00:00 84 08/03/20 21:19 87 22 99 Room Air 21 88 24 94 08/03/20 21:00 Room Air 08/03/20 20:00 87 08/03/20 20:00 98.2 87 18 123/66 (85) 96 08/03/20 18:00 87 131/62 (85) 08/03/20 16:00 97.9 73 20 118/32 (60) 94 08/03/20 16:00 83 08/03/20 12:00 71 08/03/20 12:00 97.9 73 20 154/63 (93) 94 Intake and Output 0 08/03/20 08/04/20 19:00 07:00 Intake Total 0 ml Output Total 1000 ml Balance -1000 ml 0 ml Intake Oral 0 ml Output Hemodialysis UF 1000 ml # Bowel Movements 1 2 Laboratory Tests 08/03/20 12:22: POC Whole Blood Glucose 97 08/03/20 19:45: White Blood Count 5.1, Red Blood Count 3.72L, Hemoglobin 11.3L, Hematocrit 36.9L , Mean Corpuscular Volume 99, Mean Corpuscular Hemoglobin 30.4, Mean Corpuscular Hemoglobin Concent 30.6L, Red Cell Distribution Width 18.2H, Platelet Count 178, Mean Platelet Volume 7.1, Neutrophils (%) (Auto) 69.3, Lymphocytes (%) (Auto) 15.2L, Monocytes (%) (Auto) 8.7, Eosinophils (%) (Auto) 5.9H, Basophils (%) (Auto) 0.9, Sodium Level 135L, Potassium Level 3.9, Chloride Level 95L, Carbon Dioxide Level 32, Anion Gap 8, Blood Urea Nitrogen 27H, Creatinine 3.1H, Estimat Glomerular Filtration Rate 17.3, Glucose Level 113H, Calcium Level 9.8, Troponin I 0.164H 08/03/20 22:12: POC Whole Blood Glucose 121H 08/04/20 03:20: White Blood Count 4.9, Red Blood Count 3.83L, Hemoglobin 11.5L, Hematocrit 36.8L , Mean Corpuscular Volume 96, Mean Corpuscular Hemoglobin 29.9, Mean Corpuscular Hemoglobin Concent 31.1L, Red Cell Distribution Width 17.3H, Platelet Count 188, Mean Platelet Volume 6.9, Neutrophils (%) (Auto) 69.9, Lymphocytes (%) (Auto) 17.5L, Monocytes (%) (Auto) 7.4, Eosinophils (%) (Auto) 4.3H, Basophils (%) (Auto) 1.1, Sodium Level 135L, Potassium Level 4.7, Chloride Level 95L, Carbon Dioxide Level 31, Anion Gap 9, Blood Urea Nitrogen 33H, Creatinine 3.9H, Estimat Glomerular Filtration Rate 13.3, Glucose Level 92, Calcium Level 9.7, Troponin I 0.131H 08/04/20 03:41: POC Whole Blood Glucose 97 08/04/20 11:00: Troponin I [Pending] Height (Feet): 5 Height (Inches): 0.00 Weight (Pounds): 139 General Appearance: no apparent distress EENT: PERRL/EOMI Neck: non-tender, normal alignment Cardiovascular: normal peripheral pulses, normal rate, regular rhythm Respiratory/Chest: chest wall non-tender, lungs clear Abdomen: normal bowel sounds, non tender, no organomegaly Extremities: normal range of motion, non-tender Dalton Rice M.D. Aug 04, 2020 11:56
[2020-08-04 12:00] VITALS: BP 105/54
[2020-08-04] MEDS ORDERED: Vancomycin 1gm/D5W 275ml IVPB ONE ×2 (14:00)
[2020-08-04 16:00] VITALS: BP 106/54
--- NOTE | 2020-08-04 16:30 | Consultation ---
DATE OF CONSULTATION: 08/04/2020 INFECTIOUS DISEASES CONSULTATION CONSULTING PHYSICIAN: Morteza Castillo MD. REQUESTING PHYSICIAN: Pam Alcantar MD. REASON FOR CONSULTATION: Possible aspiration pneumonia with colonization with MRSA and VRE. Recommendation for treatment. HISTORY OF PRESENT ILLNESS: The patient is an 85-year-old female with past medical history of end-stage renal disease on hemodialysis, hypertension, diabetes, hyperlipidemia, peripheral vascular disease, CVA, DVT, anemia of chronic disease with gout and dysphagia status post jejunostomy tube placement for nutritional support was sent from her [facility] facility to [facility] emergency room for dislodged J-tube. The patient's J-tube came out, unclear whether she pulled it or not. She had no access for nutrition so she was sent to the emergency room for replacement. The patient had extensive workup upon admission including labs which showed normal WBC with mildly elevated lymphocyte. Creatinine was elevated since she is end-stage renal failure. Her AST also was elevated. Chest x-ray showed bibasilar atelectasis concerning for pulmonary vascular congestion versus infectious inflammatory process so she was admitted to the medical floor, pending GI evaluation for replacement of J-tube. The patient was screened for COVID-19 with PCR test the result of which was negative on 08/02/2020. Her screening for VRE and MRSA both came back positive. The patient probably had episode of cough and wheezing last night concerning for aspiration so she was given Zithromax. Chest x-ray today was done was limited due to hypoventilation so she was started on Zosyn empirically for possible aspiration pneumonia and Infectious Disease consultation was requested for antibiotics treatment and further management. As of note, the patient is poor historian, cannot provide any history at this time. REVIEW OF SYSTEMS: Unable to obtain, the patient is poor historian. PAST MEDICAL HISTORY: Significant for end-stage renal disease on hemodialysis, hypertension, diabetes, hyperlipidemia, peripheral vascular disease, CVA, DVT, anemia of chronic disease, gout, and paraplegia with dysphagia. PAST SURGICAL HISTORY: She had bilateral above-knee amputation due to severe peripheral vascular disease and jejunostomy tube placement for nutrition. FAMILY HISTORY: Unable to obtain. SOCIAL HISTORY: The patient lives in [facility] for prison care. No recent drugs, tobacco, or alcohol. She is retired. ALLERGIES: She is allergic to gabapentin. MEDICATIONS: Currently she is on Zosyn 2.25 g IV q.8h. For the rest of her medications, please refer to MAR. LABORATORY DATA: Labs today showed white count of 4.9, hemoglobin 11.5, and platelet count 188, neutrophil of 69. BUN 33, creatinine 3.9. Microbiology, VRE and MRSA screen both came back positive. COVID-19 PCR test was negative. IMAGING: Chest x-ray on admission showed mild bibasilar atelectasis, prominent lung markings may be due to pulmonary vascular congestion versus infectious process. Abdominal x-ray showed NG-tube in good position. Repeated chest x-ray on 08/04/2020 showed slightly limited study due to hypoventilation, no clear consolidation. PHYSICAL EXAMINATION: VITAL SIGNS: Temperature 97.9, pulse 90, respirations 20, blood pressure 103/46, and saturation 100% on nasal cannula. GENERAL: An elderly female, lying in bed, open eyes spontaneously, nonverbal, does not follow commands, not in acute distress. HEENT: Normocephalic and atraumatic. Pupils reactive to light equally. Moist oral mucosa. No exudate or thrush. NECK: Supple. No lymphadenopathy. LUNGS: She had crackles in both lung field area with diminished breath sounds at the bases. CARDIOVASCULAR: Regular rate and rhythm. No murmur or gallop. ABDOMEN: Soft, nontender, nondistended. Normal bowel sounds. No hepatosplenomegaly or ascites. EXTREMITIES: She has bilateral zftof-cow-ozew amputation and right upper arm fistula. ASSESSMENT AND RECOMMENDATION: 1. Possible aspiration pneumonia. Continue Zosyn empiric coverage for now and add vancomycin since MRSA swab is positive. Repeat chest x-ray in the morning. Send sputum culture. Aspiration precaution. Keep head of bed more than 50 degree all the time. 2. Colonization with VRE and MRSA. Keep the patient in contact isolation for now. 3. Diabetes mellitus. Recommend tight glycemic control to keep blood glucose between 100 to 120. 4. End-stage renal disease on hemodialysis. Continue hemodialysis as per renal service. Monitor daily weight. 5. Jejunostomy tube dislodgement. Continue local site care with dressing and keep clean and dry to avoid infection, pending placement of new jejunostomy tube on Wednesday. The patient already on antibiotic treatment which will cover her tube site. Thank you for the consult. ID will continue to follow. Morteza Castillo M.D. DR: Buddy JOB#: [id number] CC:
--- NOTE | 2020-08-04 19:29 | Consultation ---
DATE OF CONSULTATION: 08/04/2020 GASTROENTEROLOGY CONSULTATION CHIEF COMPLAINT: I was asked to see this patient for evaluation of jejunostomy malfunction. HISTORY OF PRESENT ILLNESS: The patient is an unfortunate 85-year-old woman with a jejunostomy tube, who was brought into the hospital due to occluded jejunostomy catheter. At the time of the visit, the jejunostomy catheter was actually removed and there was no catheter in the abdominal wall. The patient had a nasogastric tube placed but this was removed since it appeared to be in the lungs. The patient herself was unable to provide history. Most of the information is only available from the chart. She has had a jejunostomy catheter presumably due to gastric intolerance of feeding. PAST MEDICAL HISTORY: History of end-stage renal disease on dialysis, hypertension, diabetes, hyperlipidemia, peripheral vascular disease, history of stroke, deep vein thrombosis, anemia of chronic disease, gout, functional paraplegia, status post bilateral above-knee amputation. ALLERGIES: Gabapentin. FAMILY HISTORY: Noncontributory. SOCIAL HISTORY: The patient resides in [facility]. REVIEW OF SYSTEMS: Not obtainable. PHYSICAL EXAMINATION: GENERAL: Debilitated woman seen in her room. HEENT: Normocephalic and atraumatic. NECK: Supple. CHEST: Clear to auscultation. CARDIOVASCULAR: Revealed a regular rate. ABDOMEN: Soft. There is a gastrojejunostomy site identified and a Posada catheter was placed by me to the to maintain access. Position was verified by the aspiration. EXTREMITIES: Revealed bilateral [id number] amputation. NEUROLOGIC: Notable for obtundation. LABORATORY DATA: Noted. ASSESSMENT: This patient has a jejunostomy catheter by history which has fallen out and at this point I replaced it with a Posada catheter as a substitute to gastrostomy tube. The Posada catheter can be used overnight for medications, but it should be left to gravity suction when not in use. Discussion will have to be held with the family regarding replacement of the gastrojejunostomy catheter which may have to done endoscopically. In the meantime, IV fluids can be given as needed per dialysis physician recommendations to maintain hydration. RECOMMENDATIONS: 1. Keep the patient NPO. 2. May use Posada catheter as a gastrostomy replacement for medications for now. 3. Otherwise place Posada to gravity drainage. 4. Gastrojejunostomy replacement this week. Thank you for asking me to participate in the care of this patient. Alberto Rico M.D. DR: Nestor JOB#: [id number] CC: BHANU
[2020-08-04 20:00] VITALS: BP 122/79
[2020-08-05] VITALS (8 sets, daily range): BP systolic 60–110; BP diastolic 40–58
[2020-08-05] MEDS: Piperacillin/Tazobactam 2.25 GM in D5W 55 ML IVPB SCH ×4 (00:06→21:15)
[2020-08-05] MEDS: NovoLOG Insulin Flexpen SUBQ SCH (06:11)
[2020-08-05] MEDS: timoloL maleate 0.5% Op Soln 2.5ml BOTH EYES SCH ×2 (08:46→17:21)
[2020-08-05] MEDS: Nephrovite tab (Rena-Vite) NG SCH (09:00)
[2020-08-05] MEDS: Aspirin Baby 81mg NG SCH (09:00)
[2020-08-05] MEDS: Miralax 17gm pkt NG SCH (09:00)
--- NOTE | 2020-08-05 09:09 | General Progress Note ---
Assessment/Plan Status: stable Assessment/Plan: 1. dislodged J tube - Replacement for disloged J tube per GI. GI is trying to get consent for procedure. May transfer to med surg. 2. ESRD - consult Renal for HD with Dr brand. HD done yesterday. 3. Elevated Troponin 2nd ESRD - improved. 4. Possible Asp pneumonia - cont Zosyn IV and Vanco. ID is following. Duoneb q 6 hrs prn 5, HLD - cont home med. 6. DM II - cont SSI. 7. Anemia of chronic disease 8. Gout 9. H/o CVA 10. H/o PAD s/p AKA bilaterally. Subjective Date patient seen: Aug 05, 2020 Time patient seen: 08:50 Constitutional: Reports: no symptoms HEENT: Reports: no symptoms Respiratory: Reports: cough Gastrointestinal/Abdominal: Reports: no symptoms Genitourinary: Reports: no symptoms Neurologic/Psychiatric: Reports: no symptoms Hematologic/Lymphatic: Reports: no symptoms Allergies: Coded Allergies: GABAPENTIN (Unverified Allergy, Unknown, 06/14/19) Subjective This morning she still has slight coughing and load rounchi. No fever or chills. No sob. No nausea or vomiting. Objective Last 24 Hour Vital Signs Date Time Temp Pulse Resp B/P (MAP) Pulse Ox O2 Delivery O2 Flow Rate FiO2 08/05/20 08:00 98.7 92 18 100/57 (71) 96 08/05/20 04:00 95 08/05/20 04:00 98.3 20 105/55 (72) 97 08/05/20 00:00 99.9 77 19 110/50 (70) 94 08/05/20 00:00 95 08/04/20 21:00 Room Air 08/04/20 20:00 101 08/04/20 20:00 97.9 70 22 122/79 (93) 94 08/04/20 16:00 104 08/04/20 16:00 99.3 99 20 106/54 (71) 94 08/04/20 12:00 101 08/04/20 12:00 97.5 99 20 105/54 (71) 96 Intake and Output 08/04/20 08/05/20 19:00 07:00 Intake Total 110 ml Balance 110 ml IV Total 110 ml # Bowel Movements 3 2 Laboratory Tests 08/04/20 11:00: Troponin I 0.117H 08/04/20 13:43: POC Whole Blood Glucose 96 08/04/20 18:01: POC Whole Blood Glucose [Pending] 08/04/20 18:30: Troponin I 0.092H 08/04/20 23:07: POC Whole Blood Glucose 100 08/05/20 06:10: POC Whole Blood Glucose 106 Height (Feet): 5 Height (Inches): 0.00 Weight (Pounds): 139 General Appearance: no apparent distress, alert EENT: normal ENT inspection Neck: supple Cardiovascular: normal rate, regular rhythm Respiratory/Chest: no respiratory distress, rhonchi - bilaterally Abdomen: non tender, soft Extremities: normal inspection Edema: no edema noted Arm (L), no edema noted Arm (R) Neurologic: alert, responsive Skin: warm/dry Pam Alcantar MD Aug 05, 2020 09:09
[2020-08-05 09:13] LABS: BASOPHILS % (AUTO) 0.5 % (0.0-2.0); EOSINOPHILS % (AUTO) 1.8 % (0.0-3.0); HEMATOCRIT 37.4 % (37.0-47.0); HEMOGLOBIN 11.7 G/DL (12.0-16.0); LYMPHOCYTES % (AUTO) 9.2 % (20.0-45.0); MEAN CORPUSCULAR VOLUME 99 FL (80-99); MONOCYTES % (AUTO) 5.1 % (1.0-10.0); NEUTROPHILS % (AUTO) 83.4 % (45.0-75.0); PLATELET COUNT 215 K/UL (150-450); RED BLOOD COUNT 3.78 M/UL (4.20-5.40); RED CELL DISTRIBUTION WIDTH 18.6 % (11.6-14.8); WHITE BLOOD COUNT 10.8 K/UL (4.8-10.8)
[2020-08-05 09:50] LABS: CREATININE 6.7 MG/DL (0.55-1.30); POTASSIUM 5.2 MMOL/L (3.5-5.1)
[2020-08-05] MEDS ORDERED: Albuterol/Ipratropium 3ml neb HHN PRN (11:00)
[2020-08-05] MEDS ORDERED: NovoLOG Insulin Flexpen SUBQ SCH ×3 (11:30)
[2020-08-05] MEDS ORDERED: Sennosides 8.6mg tab NG PRN ×2 (11:30)
--- NOTE | 2020-08-05 11:44 | General Progress Note ---
Assessment/Plan Problem List: (1) Aspiration pneumonia ICD Codes: J69.0 - Pneumonitis due to inhalation of food and vomit SNOMED: 678355161 (2) Malfunctioning jejunostomy tube ICD Codes: K94.13 - Enterostomy malfunction SNOMED: 947754393, 185897507 (3) Anemia due to chronic kidney disease ICD Codes: N18.9 - Chronic kidney disease, unspecified; D63.1 - Anemia in chronic kidney disease SNOMED: 659020366 (4) ESRD (end stage renal disease) on dialysis ICD Codes: N18.6 - End stage renal disease; Z99.2 - Dependence on renal dialysis SNOMED: 752387738 (5) DM (diabetes mellitus) ICD Codes: E11.9 - Type 2 diabetes mellitus without complications SNOMED: 77756055 (6) HTN (hypertension) ICD Codes: I10 - Essential (primary) hypertension SNOMED: 44876124 Status: stable Assessment/Plan: plan gjt placement today or tomorrow Subjective ROS Limited/Unobtainable: No Allergies: Coded Allergies: GABAPENTIN (Unverified Allergy, Unknown, 06/14/19) Objective Last 24 Hour Vital Signs Date Time Temp Pulse Resp B/P (MAP) Pulse Ox O2 Delivery O2 Flow Rate FiO2 08/05/20 09:00 Nasal Cannula 2.0 08/05/20 08:00 93 08/05/20 08:00 98.7 92 18 100/57 (71) 96 08/05/20 04:00 95 08/05/20 04:00 98.3 20 105/55 (72) 97 08/05/20 00:00 99.9 77 19 110/50 (70) 94 08/05/20 00:00 95 08/04/20 21:00 Room Air 08/04/20 20:00 101 08/04/20 20:00 97.9 70 22 122/79 (93) 94 08/04/20 16:00 104 08/04/20 16:00 99.3 99 20 106/54 (71) 94 08/04/20 12:00 101 08/04/20 12:00 97.5 99 20 105/54 (71) 96 Intake and Output 08/04/20 08/05/20 19:00 07:00 Intake Total 110 ml Balance 110 ml IV Total 110 ml # Bowel Movements 3 2 Laboratory Tests 08/04/20 13:43: POC Whole Blood Glucose 96 08/04/20 18:01: POC Whole Blood Glucose [Pending] 08/04/20 18:30: Troponin I 0.092H 08/04/20 23:07: POC Whole Blood Glucose 100 08/05/20 06:10: POC Whole Blood Glucose 106 08/05/20 08:10: White Blood Count 10.8#, Red Blood Count 3.78L, Hemoglobin 11.7L, Hematocrit 37.4, Mean Corpuscular Volume 99, Mean Corpuscular Hemoglobin 30.8, Mean Corpuscular Hemoglobin Concent 31.2L, Red Cell Distribution Width 18.6H, Platelet Count 215, Mean Platelet Volume 7.3, Neutrophils (%) (Auto) 83.4H, Lymphocytes (%) (Auto) 9.2L, Monocytes (%) (Auto) 5.1, Eosinophils (%) (Auto) 1.8, Basophils (%) (Auto) 0.5, Sodium Level 140, Potassium Level 5.2H, Chloride Level 98, Carbon Dioxide Level 28, Anion Gap 14, Blood Urea Nitrogen 55H, Creatinine 6.7#H, Estimat Glomerular Filtration Rate 7.2, Glucose Level 98, Calcium Level 8.0L, Calcium (Send out) [Pending], Phosphorus Level 4.2, Vitamin D 25-Hydroxy [Pending], 25-Hydroxy Vitamin D2 [Pending], 25-Hydroxy Vitamin D3 [ Pending], Parathyroid Hormone (Intact) [Pending] Height (Feet): 5 Height (Inches): 0.00 Weight (Pounds): 139 General Appearance: no apparent distress EENT: normal ENT inspection Neck: supple Cardiovascular: normal rate Respiratory/Chest: decreased breath sounds Abdomen: normal bowel sounds, non tender, soft Extremities: non-tender Ezequiel Perales MD Aug 05, 2020 11:44
--- NOTE | 2020-08-05 13:00 | Nephrology Progress Note ---
Assessment/Plan Problem List: (1) ESRD (end stage renal disease) on dialysis (2) DM (diabetes mellitus) (3) HTN (hypertension) (4) Secondary hyperparathyroidism of renal origin (5) Malfunctioning jejunostomy tube (6) Aspiration pneumonia (7) Anemia Plan HD tomorrow Discussed with HD RN follow labs Subjective Subjective In NAD Objective Objective Last 24 Hour Vital Signs Date Time Temp Pulse Resp B/P (MAP) Pulse Ox O2 Delivery O2 Flow Rate FiO2 08/05/20 12:00 98.4 86 18 106/58 (74) 97 08/05/20 09:00 Nasal Cannula 2.0 08/05/20 08:00 93 08/05/20 08:00 98.7 92 18 100/57 (71) 96 08/05/20 04:00 95 08/05/20 04:00 98.3 20 105/55 (72) 97 08/05/20 00:00 99.9 77 19 110/50 (70) 94 08/05/20 00:00 95 08/04/20 21:00 Room Air 08/04/20 20:00 101 08/04/20 20:00 97.9 70 22 122/79 (93) 94 08/04/20 16:00 104 08/04/20 16:00 99.3 99 20 106/54 (71) 94 Intake and Output 08/04/20 08/05/20 19:00 07:00 Intake Total 110 ml Balance 110 ml IV Total 110 ml # Bowel Movements 3 2 Laboratory Tests 08/04/20 13:43: POC Whole Blood Glucose 96 08/04/20 18:01: POC Whole Blood Glucose [Pending] 08/04/20 18:30: Troponin I 0.092H 08/04/20 23:07: POC Whole Blood Glucose 100 08/05/20 06:10: POC Whole Blood Glucose 106 08/05/20 08:10: White Blood Count 10.8#, Red Blood Count 3.78L, Hemoglobin 11.7L, Hematocrit 37.4, Mean Corpuscular Volume 99, Mean Corpuscular Hemoglobin 30.8, Mean Corpuscular Hemoglobin Concent 31.2L, Red Cell Distribution Width 18.6H, Platelet Count 215, Mean Platelet Volume 7.3, Neutrophils (%) (Auto) 83.4H, Lymphocytes (%) (Auto) 9.2L, Monocytes (%) (Auto) 5.1, Eosinophils (%) (Auto) 1.8, Basophils (%) (Auto) 0.5, Sodium Level 140, Potassium Level 5.2H, Chloride Level 98, Carbon Dioxide Level 28, Anion Gap 14, Blood Urea Nitrogen 55H, Creatinine 6.7#H, Estimat Glomerular Filtration Rate 7.2, Glucose Level 98, Calcium Level 8.0L, Calcium (Send out) [Pending], Phosphorus Level 4.2, Vitamin D 25-Hydroxy [Pending], 25-Hydroxy Vitamin D2 [Pending], 25-Hydroxy Vitamin D3 [ Pending], Parathyroid Hormone (Intact) [Pending] Height (Feet): 5 Height (Inches): 0.00 Weight (Pounds): 139 Cardiovascular: normal rate Respiratory/Chest: rhonchi - bilaterally Extremities: no edema Aftab Arnold MD Aug 05, 2020 13:00
[2020-08-05] MEDS ORDERED: Piperacillin/Tazobactam 2.25 GM in D5W 55 ML IVPB SCH (14:00)
[2020-08-05] MEDS: Albuterol/Ipratropium 3ml neb HHN PRN (15:39)
--- NOTE | 2020-08-05 17:23 | Infectious Diseases Prog Note ---
Assessment/Plan Problems: (1) Aspiration pneumonia Assessment & Plan: continue Zosyn empiric coverage for 8 days, and vancomycin since MRSA naris is positive, pending sputum culture, aspiration precaution keep head of bed more than 30 all the time. repeat CXR in AM (2) Colonization with VRE (vancomycin-resistant enterococcus) Assessment & Plan: keep patient in contact isolation (3) MRSA nasal colonization Assessment & Plan: keep patient in contact isolation (4) DM (diabetes mellitus) Assessment & Plan: recommend tight glycemic control to keep blood glucose between 80-120 (5) ESRD (end stage renal disease) on dialysis Assessment & Plan: continue hemodialysis as per renal service monitor daily weight (6) Malfunctioning jejunostomy tube Assessment & Plan: continue local site care with dressing and keep clean and dry to avoid infection pending placement of new tube on Wednesday, already on Zosyn treatment Subjective ROS Limited/Unobtainable: Yes Allergies: Coded Allergies: GABAPENTIN (Unverified Allergy, Unknown, 06/14/19) she was lying in bed comfortable, unresponsive to verbal command, had no fever or chills today, and no cough or shortness of breath as per the nurse's report, no diarrhea Objective Last 24 Hour Vital Signs Date Time Temp Pulse Resp B/P (MAP) Pulse Ox O2 Delivery O2 Flow Rate FiO2 08/05/20 16:00 98.7 86 20 104/55 (71) 96 08/05/20 15:49 92 22 99 Nasal Cannula 2.0 28 90 20 95 08/05/20 12:00 98.4 86 18 106/58 (74) 97 08/05/20 09:00 Nasal Cannula 2.0 08/05/20 08:00 93 08/05/20 08:00 98.7 92 18 100/57 (71) 96 08/05/20 04:00 95 08/05/20 04:00 98.3 20 105/55 (72) 97 08/05/20 00:00 99.9 77 19 110/50 (70) 94 08/05/20 00:00 95 08/04/20 21:00 Room Air 08/04/20 20:00 101 08/04/20 20:00 97.9 70 22 122/79 (93) 94 Height (Feet): 5 Height (Inches): 0.00 Weight (Pounds): 139 General Appearance: WD/WN, no acute distress HEENT: normocephalic, atraumatic, anicteric, mucous membranes moist Respiratory/Chest: chest wall non-tender, no respiratory distress, no accessory muscle use, decreased breath sounds, crackles/rales Cardiovascular: normal peripheral pulses, normal rate, regular rhythm, no gallop/murmur, no JVD Abdomen: normal bowel sounds, soft, non tender, no organomegaly, non distended , no mass, no scars Genitourinary: normal external genitalia Extremities: no cyanosis, no clubbing Skin: no rash, no lesions, ulcers Neurologic/Psychiatric: unresponsiveness Lymphatic: no neck adenopathy, no groin adenopathy Laboratory Tests Test 08/04/20 18:01 08/04/20 18:30 08/04/20 23:07 08/05/20 06:10 POC Whole Blood Glucose Pending 100 MG/DL (74-106) 106 MG/DL (74-106) Troponin I 0.092 ng/mL (0.000-0.056) Test 08/05/20 08:10 White Blood Count 10.8 K/UL (4.8-10.8) # Red Blood Count 3.78 M/UL (4.20-5.40) L Hemoglobin 11.7 G/DL (12.0-16.0) L Hematocrit 37.4 % (37.0-47.0) Mean Corpuscular Volume 99 FL (80-99) Mean Corpuscular Hemoglobin 30.8 PG (27.0-31.0) Mean Corpuscular Hemoglobin Concent 31.2 G/DL (32.0-36.0) L Red Cell Distribution Width 18.6 % (11.6-14.8) H Platelet Count 215 K/UL (150-450) Mean Platelet Volume 7.3 FL (6.5-10.1) Neutrophils (%) (Auto) 83.4 % (45.0-75.0) H Lymphocytes (%) (Auto) 9.2 % (20.0-45.0) L Monocytes (%) (Auto) 5.1 % (1.0-10.0) Eosinophils (%) (Auto) 1.8 % (0.0-3.0) Basophils (%) (Auto) 0.5 % (0.0-2.0) Sodium Level 140 MMOL/L (136-145) Potassium Level 5.2 MMOL/L (3.5-5.1) H Chloride Level 98 MMOL/L (98-107) Carbon Dioxide Level 28 MMOL/L (21-32) Anion Gap 14 mmol/L (5-15) Blood Urea Nitrogen 55 mg/dL (7-18) H Creatinine 6.7 MG/DL (0.55-1.30) #H Estimat Glomerular Filtration Rate 7.2 mL/min (>60) Glucose Level 98 MG/DL (74-106) Calcium Level 8.0 MG/DL (8.5-10.1) L Calcium (Send out) Pending Phosphorus Level 4.2 MG/DL (2.5-4.9) Vitamin D 25-Hydroxy Pending 25-Hydroxy Vitamin D2 Pending 25-Hydroxy Vitamin D3 Pending Parathyroid Hormone (Intact) Pending Current Medications Medications (Trade) Dose Ordered Sig/Selene Route PRN Reason Start Time Stop Time Status Last Admin Dose Admin Albuterol/ Ipratropium (Albuterol/ Ipratropium) 3 ml Q6H PRN HHN Shortness of Breath 08/05/20 12:00 08/10/20 11:59 08/05/20 15:39 Aspirin (ASA) 81 mg DAILY NG 08/06/20 09:00 09/17/20 08:59 Dextrose (Dextrose 50%) 25 ml Q30M PRN IV Hypoglycemia 08/05/20 11:30 11/01/20 02:59 Dextrose (Dextrose 50%) 50 ml Q30M PRN IV Hypoglycemia 08/05/20 11:30 11/01/20 02:59 Folic Acid (Folate) 1 mg DAILY NG 08/06/20 09:00 09/02/20 08:59 Heparin Sodium (Porcine) (Heparin Sod 1000 units/ml 10ml) 2,000 unit ONCE PRN IV for HD use 08/06/20 08:00 08/06/20 23:59 Piperacillin Sod/ Tazobactam Sod 2.25 gm/Dextrose 55 ml @ 110 mls/hr Q8HR IVPB 08/05/20 14:00 08/10/20 13:59 08/05/20 13:39 Polyethylene Glycol (Miralax) 17 gm DAILY NG 08/06/20 09:00 09/02/20 08:59 Pravastatin Sodium (Pravachol) 20 mg BEDTIME NG 08/05/20 21:00 09/02/20 20:59 Sennosides (Senokot) 17.2 mg Q24H PRN NG CONSTIPATION 08/05/20 11:30 09/01/20 11:29 Sodium Chloride 1,000 ml @ 500 mls/hr Q2H PRN IVLG sbp<90 during hd 08/06/20 08:00 08/06/20 23:59 Timolol Maleate (timoloL maleate 0.5% Op Soln) 1 drop BID BOTH EYES 08/05/20 18:00 09/02/20 08:59 Vancomycin HCl ([facility] pharmacy to dose) 1 ea DAILY PRN MISC Per rx protocol 08/05/20 12:00 09/04/20 11:59 Vitamin B Complex/ Vit C/Folic Acid (Nephrovite) 1 tab DAILY NG 08/06/20 09:00 09/02/20 08:59 Morteza Castillo M.D. Aug 05, 2020 17:23
[2020-08-05] MEDS ORDERED: timoloL maleate 0.5% Op Soln 2.5ml BOTH EYES SCH (18:00)
[2020-08-05] MEDS ORDERED: Tubing IV Secondary IV ONE (18:39)
[2020-08-06] VITALS (16 sets, daily range): BP systolic 80–124; BP diastolic 40–70
[2020-08-06] MEDS ORDERED: NS 250 ML IVPB SCH (00:30)
[2020-08-06] MEDS: Piperacillin/Tazobactam 2.25 GM in D5W 55 ML IVPB SCH ×3 (05:45→22:35)
--- NOTE | 2020-08-06 06:55 | Pre-Procedure Note/Attestation ---
Pre-Procedure Note/Attestation Complete Prior to Procedure Planned Procedure: not applicable Procedure Narrative: EGD/GJT placement Indications for Procedure Pre-Operative Diagnosis: dysphagia Attestation I attest that I discussed the nature of the procedure; its benefits; risks and complications; and alternatives (and the risks and benefits of such alternatives ), prior to the procedure, with the patient (or the patient's legal authorization representative). I attest that, if there was a reasonable possibility of needing a blood transfusion, the patient (or the patient's legal authorization representative) was given the [facility] standardized written summary, pursuant to the Marlon Marcos Blood Safety Act ([place] Health and Safety Code # 1645, as amended). I attest that I re-evaluated the patient just prior to the surgery and that there has been no change in the patient's H&P, except as documented below: Ezequiel Perales MD Aug 06, 2020 06:55
[2020-08-06] MEDS ORDERED: Heparin Sod 1000 units/ml 10ml IV PRN (08:00)
[2020-08-06] MEDS: Miralax 17gm pkt NG SCH (09:00)
[2020-08-06] MEDS ORDERED: Nephrovite tab (Rena-Vite) NG SCH (09:00)
[2020-08-06] MEDS: Aspirin Baby 81mg NG SCH (09:00)
[2020-08-06] MEDS: Nephrovite tab (Rena-Vite) NG SCH (09:00)
[2020-08-06] MEDS ORDERED: Miralax 17gm pkt NG SCH (09:00)
[2020-08-06] MEDS ORDERED: Aspirin Baby 81mg NG SCH (09:00)
[2020-08-06 09:07] LABS: BASOPHILS % (AUTO) 1.2 % (0.0-2.0); EOSINOPHILS % (AUTO) 2.7 % (0.0-3.0); HEMATOCRIT 38.7 % (37.0-47.0); HEMOGLOBIN 12.2 G/DL (12.0-16.0); LYMPHOCYTES % (AUTO) 6.2 % (20.0-45.0); MEAN CORPUSCULAR VOLUME 95 FL (80-99); MONOCYTES % (AUTO) 8.4 % (1.0-10.0); NEUTROPHILS % (AUTO) 81.5 % (45.0-75.0); PLATELET COUNT 206 K/UL (150-450); RED BLOOD COUNT 4.06 M/UL (4.20-5.40); RED CELL DISTRIBUTION WIDTH 16.8 % (11.6-14.8); WHITE BLOOD COUNT 15.5 K/UL (4.8-10.8)
--- NOTE | 2020-08-06 09:13 | General Progress Note ---
Assessment/Plan Status: stable Assessment/Plan: 1. dislodged J tube - Replacement for disloged J tube per GI today. Transferred back to [facility] last night. 2. ESRD - Renal following for HD. HD for today. 3. Elevated Troponin 2nd ESRD - resolved. 4. Possible Asp pneumonia - improved. cont Zosyn IV and Vanco. ID is following. Duoneb q 6 hrs prn 5. Hypotension - NS bolus 250 cc and albumin ordered. will monitor. 6, HLD - cont home med. 7. DM II - cont SSI. 8. Anemia of chronic disease 9. Gout 10. H/o CVA 11. H/o PAD s/p AKA bilaterally. Subjective Date patient seen: Aug 06, 2020 Time patient seen: 08:50 Constitutional: Reports: no symptoms HEENT: Reports: no symptoms Cardiovascular: Reports: no symptoms Respiratory: Reports: no symptoms Gastrointestinal/Abdominal: Reports: no symptoms Genitourinary: Reports: no symptoms Neurologic/Psychiatric: Reports: no symptoms Hematologic/Lymphatic: Reports: anemia Allergies: Coded Allergies: GABAPENTIN (Unverified Allergy, Unknown, 06/14/19) Subjective last night and this morning, she had low blood pressure but awake and asymptomatic now. No fever or chills. No sob. No nausea or vomiting. Objective Last 24 Hour Vital Signs Date Time Temp Pulse Resp B/P (MAP) Pulse Ox O2 Delivery O2 Flow Rate FiO2 08/06/20 08:00 97.5 99 20 87/42 (57) 96 08/06/20 04:00 97.7 68 15 96/57 (70) 95 95 08/06/20 04:00 96 08/06/20 02:05 98.1 92 18 94/49 (64) 94 08/06/20 02:04 95 08/06/20 00:38 107 20 95 08/06/20 00:30 93/53 (66) 08/06/20 00:15 120/59 (79) 08/05/20 23:50 107 60/42 (48) 08/05/20 23:45 97.5 98 20 80/40 (53) 95 08/05/20 21:00 Nasal Cannula 2.0 08/05/20 20:00 97.3 92 20 106/47 (66) 100 08/05/20 16:00 98.7 86 20 104/55 (71) 96 08/05/20 15:49 92 22 99 Nasal Cannula 2.0 28 90 20 95 08/05/20 12:00 98.4 86 18 106/58 (74) 97 Intake and Output 08/05/20 08/06/20 19:00 07:00 # Bowel Movements 2 Laboratory Tests 08/06/20 05:14: POC Whole Blood Glucose 99 08/06/20 08:40: White Blood Count [Pending], Red Blood Count [Pending], Hemoglobin [Pending], Hematocrit [Pending], Mean Corpuscular Volume [Pending], Mean Corpuscular Hemoglobin [Pending], Mean Corpuscular Hemoglobin Concent [Pending], Red Cell Distribution Width [Pending], Platelet Count [Pending], Mean Platelet Volume [ Pending], Neutrophils (%) (Auto) [Pending], Lymphocytes (%) (Auto) [Pending], Monocytes (%) (Auto) [Pending], Eosinophils (%) (Auto) [Pending], Basophils (%) (Auto) [Pending], Sodium Level [Pending], Potassium Level [Pending], Chloride Level [Pending], Carbon Dioxide Level [Pending], Blood Urea Nitrogen [Pending], Creatinine [Pending], Estimat Glomerular Filtration Rate [Pending], Glucose Level [Pending], Calcium Level [Pending] Height (Feet): 4 Height (Inches): 9.00 Weight (Pounds): 136 General Appearance: no apparent distress, alert EENT: normal ENT inspection Neck: non-tender, supple Cardiovascular: normal rate, regular rhythm Respiratory/Chest: chest wall non-tender, lungs clear Abdomen: non tender, soft Extremities: non-tender Edema: no edema noted Arm (L), no edema noted Arm (R) Neurologic: alert, responsive Skin: warm/dry Pam Alcantar MD Aug 06, 2020 09:13
[2020-08-06] MEDS ORDERED: NS 250 ML IVPB ONE (09:15)
[2020-08-06 09:18] LABS: CALCIUM 8.6 MG/DL (8.5-10.1); CREATININE 8.5 MG/DL (0.55-1.30); POTASSIUM 5.3 MMOL/L (3.5-5.1)
[2020-08-06] MEDS: timoloL maleate 0.5% Op Soln 2.5ml BOTH EYES SCH ×2 (09:57→17:31)
--- NOTE | 2020-08-06 11:07 | Anethesia Preoperative Eval ---
Anesthesia Pre-op PMH/ROS General Date of Evaluation: Aug 06, 2020 Time of Evaluation: 11:03 Anesthesiologist: Gallo ASA Score: ASA 4 Mallampati Score Class I : Soft palate, uvula, fauces, pillars visible Class II: Soft palate, uvula, fauces visible Class III: Soft palate, base of uvula visible Class IV: Only hard plate visible Mallampati Classification: Class III Surgeon: Diaz Diagnosis: Feeding tube malfunction Surgical Procedure: EGD PEG replacement Anesthesia History: none Family History: no anesthesia problems Allergies: Coded Allergies: GABAPENTIN (Unverified Allergy, Unknown, 06/14/19) Medications: see eMAR Patient NPO?: Yes Past Medical History Cardiovascular: Reports: HTN, other - PVC bilateral AKA; Denies: CAD, DC, valve dz, arrhythmia Pulmonary: Denies: asthma, COPD, JEFE, other Gastrointestinal/Genitourinary: Reports: GERD, ESRD; Denies: CRI, other Neurologic/Psychiatric: Reports: dementia, CVA; Denies: depression/anxiety, TIA, other Endocrine: Reports: DM, hypothyroidism; Denies: steroids, other HEENT: Denies: cataract (L), cataract (R), glaucoma, [place] (L), [place] (R), other Hematology/Immune: Reports: anemia - of chronic d-s, DVT; Denies: bleeding disorder, other Musculoskeletal/Integumentary: Reports: OA, other - contructed Other: other - malnourished PMH Narrative: as above PSxH Narrative: see H&P Anesthesia Pre-op Phys. Exam Physician Exam Last Vital Signs Date Time Temp Pulse Resp B/P (MAP) Pulse Ox O2 Delivery O2 Flow Rate FiO2 08/06/20 09:44 105/48 (67) 08/06/20 08:00 97.5 99 20 96 08/05/20 21:00 Nasal Cannula 2.0 08/05/20 15:49 28 Constitutional: NAD Neurologic: other - unable to obtaine Cardiovascular: RRR Respiratory: CTA Gastrointestinal: S/NT/ND Airway Exam Mallampati Score: Class III MO: limited Neck: stiff ROM: limited Teeth: missing Dentures: no upper, no lower Anesthesia Pre-op A/P Labs Hematology Test 08/06/20 08:40 White Blood Count 15.5 K/UL (4.8-10.8) H Red Blood Count 4.06 M/UL (4.20-5.40) L Hemoglobin 12.2 G/DL (12.0-16.0) Hematocrit 38.7 % (37.0-47.0) Mean Corpuscular Volume 95 FL (80-99) Mean Corpuscular Hemoglobin 30.1 PG (27.0-31.0) Mean Corpuscular Hemoglobin Concent 31.5 G/DL (32.0-36.0) L Red Cell Distribution Width 16.8 % (11.6-14.8) H Platelet Count 206 K/UL (150-450) Mean Platelet Volume 6.9 FL (6.5-10.1) Neutrophils (%) (Auto) 81.5 % (45.0-75.0) H Lymphocytes (%) (Auto) 6.2 % (20.0-45.0) L Monocytes (%) (Auto) 8.4 % (1.0-10.0) Eosinophils (%) (Auto) 2.7 % (0.0-3.0) Basophils (%) (Auto) 1.2 % (0.0-2.0) Chemistry Test 08/06/20 05:14 08/06/20 08:40 POC Whole Blood Glucose 99 MG/DL (74-106) Sodium Level 135 MMOL/L (136-145) L Potassium Level 5.3 MMOL/L (3.5-5.1) H Chloride Level 94 MMOL/L (98-107) L Carbon Dioxide Level 27 MMOL/L (21-32) Anion Gap 14 mmol/L (5-15) Blood Urea Nitrogen 77 mg/dL (7-18) H Creatinine 8.5 MG/DL (0.55-1.30) H Estimat Glomerular Filtration Rate 5.5 mL/min (>60) Glucose Level 101 MG/DL (74-106) Calcium Level 8.6 MG/DL (8.5-10.1) Risk Assessment & Plan Assessment: ASA 4 Plan: MAC Status Change Before Surgery: No Pre-Antibiotics Drug: as scheduled Justice Holder MD Aug 06, 2020 11:07
[2020-08-06] MEDS ORDERED: NS 500ML IVPB ONE (12:46)
--- NOTE | 2020-08-06 12:57 | Endoscopy Procedure Note ---
Endoscopy Procedure Note General Indication for Procedure: dysphagia Procedures Performed: EGD Operative Findings/Diagnosis: JT placement Specimen: none Pt Tolerated Procedure Well: Yes Estimated Blood Loss: none Anesthesia Anesthesiologist: britton Anesthesia: MAC Inserted Devices Implant(s) used?: No GI Core Measures 50 yrs or older w/o bx or poly: Not Applicable 10yrs. F/U recommended: Not Applicable Ezequiel Perales MD Aug 06, 2020 12:57
[2020-08-06] MEDS ORDERED: fentaNYL 100 mcg/2 mL IV ONE (13:00)
--- NOTE | 2020-08-06 13:13 | Immediate Post-Op Evaluation ---
Immediate Post-Op Evalulation Immediate Post-Op Evalulation Procedure: EGD J-tube placement Date of Evaluation: Aug 06, 2020 Time of Evaluation: 13:11 IV Fluids: 100 Blood Products: none Estimated Blood Loss: none Urinary Output: none Blood Pressure Systolic: 118 Blood Pressure Diastolic: 68 Pulse Rate: 78 Respiratory Rate: 20 O2 Sat by Pulse Oximetry: 98 Temperature (Fahrenheit): 97.6 Pain Score (1-10): 1 Nausea: No Vomiting: No Complications none Patient Status: reacts, patent, none Hydration Status: adequate Justice Holder MD Aug 06, 2020 13:13
--- NOTE | 2020-08-06 13:14 | 48 Hour Post Anesthesia Eval ---
Post Anesthesia Evaluation Procedure: EGD J-tube placement Date of Evaluation: Aug 06, 2020 Time of Evaluation: 13:40 Blood Pressure Systolic: 108 0: 72 Pulse Rate: 68 Respiratory Rate: 20 Temperature (Fahrenheit): 97.8 O2 Sat by Pulse Oximetry: 98 Airway: patent Nausea: No Vomiting: No Pain Intensity: 1 Hydration Status: adequate Cardiopulmonary Status: stable Mental Status/LOC: patient returned to baseline Follow-up Care/Observations: n/a Post-Anesthesia Complications: none Follow-up care needed: N/A Justice Holder MD Aug 06, 2020 13:14
--- NOTE | 2020-08-06 14:11 | Cardiology Report ---
APPROVED REPORT EKG Measurement Heart [id number] <Conclusion> Normal sinus rhythm Inferior infarct, age undetermined Abnormal ECG
--- NOTE | 2020-08-06 16:38 | Nephrology Progress Note ---
Assessment/Plan Problem List: (1) ESRD (end stage renal disease) on dialysis (2) DM (diabetes mellitus) (3) HTN (hypertension) (4) Secondary hyperparathyroidism of renal origin (5) Malfunctioning jejunostomy tube (6) Aspiration pneumonia (7) Anemia Plan pt was dialyzed today with no UF Discussed with HD RN and floor RN albumin and NS was given J tube was reinserted Subjective Subjective pt was hypotensive today Objective Objective Last 24 Hour Vital Signs Date Time Temp Pulse Resp B/P (MAP) Pulse Ox O2 Delivery O2 Flow Rate FiO2 08/06/20 13:45 97.8 81 18 102/53 96 Nasal Cannula 81 81 08/06/20 13:29 82 22 102/57 98 Nasal Cannula 82 82 08/06/20 13:20 87 15 101/56 99 Nasal Cannula 81 81 08/06/20 13:15 86 17 95/51 96 Nasal Cannula 86 86 08/06/20 13:14 68 20 98 08/06/20 13:13 78 20 98 08/06/20 13:05 81 22 91/47 98 Nasal Cannula 81 81 08/06/20 13:04 97.5 86 22 124/70 99 Nasal Cannula 86 86 08/06/20 11:44 98.1 91 18 90/44 (59) 97 08/06/20 11:36 90 08/06/20 09:44 105/48 (67) 08/06/20 09:00 Nasal Cannula 2.0 08/06/20 08:00 97.5 99 20 87/42 (57) 96 08/06/20 07:58 98 08/06/20 04:00 97.7 68 15 96/57 (70) 95 95 08/06/20 04:00 96 08/06/20 02:05 98.1 92 18 94/49 (64) 94 08/06/20 02:04 95 08/06/20 00:38 107 20 95 08/06/20 00:30 93/53 (66) 08/06/20 00:15 120/59 (79) 08/05/20 23:50 107 60/42 (48) 08/05/20 23:45 97.5 98 20 80/40 (53) 95 08/05/20 21:00 Nasal Cannula 2.0 08/05/20 20:00 97.3 92 20 106/47 (66) 100 Intake and Output 08/05/20 08/06/20 19:00 07:00 # Bowel Movements 2 Laboratory Tests 08/06/20 05:14: POC Whole Blood Glucose 99 08/06/20 08:40: White Blood Count 15.5H, Red Blood Count 4.06L, Hemoglobin 12.2, Hematocrit 38.7 , Mean Corpuscular Volume 95, Mean Corpuscular Hemoglobin 30.1, Mean Corpuscular Hemoglobin Concent 31.5L, Red Cell Distribution Width 16.8H, Platelet Count 206, Mean Platelet Volume 6.9, Neutrophils (%) (Auto) 81.5H, Lymphocytes (%) (Auto) 6.2L, Monocytes (%) (Auto) 8.4, Eosinophils (%) (Auto) 2.7, Basophils (%) (Auto) 1.2, Sodium Level 135L, Potassium Level 5.3H, Chloride Level 94L, Carbon Dioxide Level 27, Anion Gap 14, Blood Urea Nitrogen 77H, Creatinine 8.5H, Estimat Glomerular Filtration Rate 5.5, Glucose Level 101 , Calcium Level 8.6 08/06/20 11:13: POC Whole Blood Glucose 89 Height (Feet): 4 Height (Inches): 9.00 Weight (Pounds): 136 Cardiovascular: normal rate Respiratory/Chest: rhonchi - bilaterally Extremities: trace edema Aftab Arnold MD Aug 06, 2020 16:38
--- NOTE | 2020-08-06 17:10 | Infectious Diseases Prog Note ---
Assessment/Plan Problems: (1) Aspiration pneumonia Assessment & Plan: continue Zosyn empiric coverage for 8 days, and vancomycin since MRSA naris is positive, pending sputum culture, aspiration precaution keep head of bed more than 30 all the time. repeat CXR for follow up (2) Colonization with VRE (vancomycin-resistant enterococcus) Assessment & Plan: keep patient in contact isolation (3) MRSA nasal colonization Assessment & Plan: keep patient in contact isolation (4) DM (diabetes mellitus) Assessment & Plan: recommend tight glycemic control to keep blood glucose between 80-120 (5) ESRD (end stage renal disease) on dialysis Assessment & Plan: continue hemodialysis as per renal service monitor daily weight (6) Malfunctioning jejunostomy tube Assessment & Plan: continue local site care with dressing and keep clean and dry to avoid infection pending placement of new tube on Wednesday, already on Zosyn treatment (7) Hypotension Assessment & Plan: suspect volume depletion , with negative blood culture so far, continue hydration as needed and monitor closely in tele Subjective ROS Limited/Unobtainable: Yes Allergies: Coded Allergies: GABAPENTIN (Unverified Allergy, Unknown, 06/14/19) she was lying in bed comfortable, unresponsive to verbal command, had no fever or chills today, and no cough or shortness of breath as per the nurse's report, but secretions with yellow color , no diarrhea. was hypotensive last night and transferred to [facility] . Objective Last 24 Hour Vital Signs Date Time Temp Pulse Resp B/P (MAP) Pulse Ox O2 Delivery O2 Flow Rate FiO2 08/06/20 16:00 98.2 85 20 101/49 (66) 100 08/06/20 13:45 97.8 81 18 102/53 96 Nasal Cannula 81 81 08/06/20 13:29 82 22 102/57 98 Nasal Cannula 82 82 08/06/20 13:20 87 15 101/56 99 Nasal Cannula 81 81 08/06/20 13:15 86 17 95/51 96 Nasal Cannula 86 86 08/06/20 13:14 68 20 98 08/06/20 13:13 78 20 98 08/06/20 13:05 81 22 91/47 98 Nasal Cannula 81 81 08/06/20 13:04 97.5 86 22 124/70 99 Nasal Cannula 86 86 08/06/20 11:44 98.1 91 18 90/44 (59) 97 08/06/20 11:36 90 08/06/20 09:44 105/48 (67) 08/06/20 09:00 Nasal Cannula 2.0 08/06/20 08:00 97.5 99 20 87/42 (57) 96 08/06/20 07:58 98 08/06/20 04:00 97.7 68 15 96/57 (70) 95 95 08/06/20 04:00 96 08/06/20 02:05 98.1 92 18 94/49 (64) 94 08/06/20 02:04 95 08/06/20 00:38 107 20 95 08/06/20 00:30 93/53 (66) 08/06/20 00:15 120/59 (79) 08/05/20 23:50 107 60/42 (48) 08/05/20 23:45 97.5 98 20 80/40 (53) 95 08/05/20 21:00 Nasal Cannula 2.0 08/05/20 20:00 97.3 92 20 106/47 (66) 100 Height (Feet): 4 Height (Inches): 9.00 Weight (Pounds): 136 General Appearance: WD/WN, no acute distress HEENT: normocephalic, atraumatic, anicteric, mucous membranes moist, PERRL Respiratory/Chest: chest wall non-tender, no respiratory distress, no accessory muscle use, decreased breath sounds, crackles/rales, expiratory wheezing Cardiovascular: normal peripheral pulses, normal rate, regular rhythm, no gallop/murmur, no JVD Abdomen: normal bowel sounds, soft, non tender, no organomegaly, non distended , no mass, no scars Extremities: no cyanosis, no clubbing Skin: no rash, no lesions, ulcers Neurologic/Psychiatric: unresponsiveness Lymphatic: no neck adenopathy, no groin adenopathy Musculoskeletal: normal muscle bulk, no effusion Microbiology Date/Time Source Procedure Growth Status 08/04/20 18:30 Blood Blood Culture - Preliminary NO GROWTH AFTER 24 HOURS Resulted 08/04/20 18:15 Blood Blood Culture - Preliminary NO GROWTH AFTER 24 HOURS Resulted Laboratory Tests Test 08/06/20 05:14 08/06/20 08:40 08/06/20 11:13 POC Whole Blood Glucose 99 MG/DL (74-106) 89 MG/DL (74-106) White Blood Count 15.5 K/UL (4.8-10.8) H Red Blood Count 4.06 M/UL (4.20-5.40) L Hemoglobin 12.2 G/DL (12.0-16.0) Hematocrit 38.7 % (37.0-47.0) Mean Corpuscular Volume 95 FL (80-99) Mean Corpuscular Hemoglobin 30.1 PG (27.0-31.0) Mean Corpuscular Hemoglobin Concent 31.5 G/DL (32.0-36.0) L Red Cell Distribution Width 16.8 % (11.6-14.8) H Platelet Count 206 K/UL (150-450) Mean Platelet Volume 6.9 FL (6.5-10.1) Neutrophils (%) (Auto) 81.5 % (45.0-75.0) H Lymphocytes (%) (Auto) 6.2 % (20.0-45.0) L Monocytes (%) (Auto) 8.4 % (1.0-10.0) Eosinophils (%) (Auto) 2.7 % (0.0-3.0) Basophils (%) (Auto) 1.2 % (0.0-2.0) Sodium Level 135 MMOL/L (136-145) L Potassium Level 5.3 MMOL/L (3.5-5.1) H Chloride Level 94 MMOL/L (98-107) L Carbon Dioxide Level 27 MMOL/L (21-32) Anion Gap 14 mmol/L (5-15) Blood Urea Nitrogen 77 mg/dL (7-18) H Creatinine 8.5 MG/DL (0.55-1.30) H Estimat Glomerular Filtration Rate 5.5 mL/min (>60) Glucose Level 101 MG/DL (74-106) Calcium Level 8.6 MG/DL (8.5-10.1) Current Medications Medications (Trade) Dose Ordered Sig/Selene Route PRN Reason Start Time Stop Time Status Last Admin Dose Admin Albuterol/ Ipratropium (Albuterol/ Ipratropium) 3 ml Q6H PRN HHN Shortness of Breath 08/05/20 12:00 08/10/20 11:59 08/05/20 15:39 Aspirin (ASA) 81 mg DAILY NG 08/06/20 09:00 09/17/20 08:59 Dextrose (Dextrose 50%) 25 ml Q30M PRN IV Hypoglycemia 08/05/20 11:30 11/01/20 02:59 Dextrose (Dextrose 50%) 50 ml Q30M PRN IV Hypoglycemia 08/05/20 11:30 11/01/20 02:59 Folic Acid (Folate) 1 mg DAILY NG 08/06/20 09:00 09/02/20 08:59 Heparin Sodium (Porcine) (Heparin Sod 1000 units/ml 10ml) 2,000 unit ONCE PRN IV for HD use 08/06/20 08:00 08/06/20 23:59 Piperacillin Sod/ Tazobactam Sod 2.25 gm/Dextrose 55 ml @ 110 mls/hr Q8HR IVPB 08/05/20 14:00 08/10/20 13:59 08/06/20 14:01 Polyethylene Glycol (Miralax) 17 gm DAILY NG 08/06/20 09:00 09/02/20 08:59 Pravastatin Sodium (Pravachol) 20 mg BEDTIME NG 08/05/20 21:00 09/02/20 20:59 Sennosides (Senokot) 17.2 mg Q24H PRN NG CONSTIPATION 08/05/20 11:30 09/01/20 11:29 Sodium Chloride 1,000 ml @ 500 mls/hr Q2H PRN IVLG sbp<90 during hd 08/06/20 08:00 08/06/20 23:59 Timolol Maleate (timoloL maleate 0.5% Op Soln) 1 drop BID BOTH EYES 08/05/20 18:00 09/02/20 08:59 08/06/20 09:57 Vancomycin HCl (Vanco pharmacy to dose) 1 ea DAILY PRN MISC Per rx protocol 08/05/20 12:00 09/04/20 11:59 Vitamin B Complex/ Vit C/Folic Acid (Nephrovite) 1 tab DAILY NG 08/06/20 09:00 09/02/20 08:59 Morteza Castillo M.D. Aug 06, 2020 17:10
[2020-08-06] MEDS: Albuterol/Ipratropium 3ml neb HHN PRN (19:06)
[2020-08-06] MEDS: Midodrine 10mg tab ORAL SCH (22:35)
[2020-08-07] VITALS: BP 94/52
[2020-08-07 04:00] VITALS: BP 104/41
[2020-08-07] MEDS: Piperacillin/Tazobactam 2.25 GM in D5W 55 ML IVPB SCH (06:26)
[2020-08-07 07:18] LABS: BASOPHILS % (AUTO) 0.6 % (0.0-2.0); EOSINOPHILS % (AUTO) 6.9 % (0.0-3.0); HEMATOCRIT 32.6 % (37.0-47.0); HEMOGLOBIN 10.1 G/DL (12.0-16.0); MEAN CORPUSCULAR VOLUME 96 FL (80-99); NEUTROPHILS % (AUTO) 81.4 % (45.0-75.0); PLATELET COUNT 209 K/UL (150-450); RED BLOOD COUNT 3.39 M/UL (4.20-5.40); RED CELL DISTRIBUTION WIDTH 16.8 % (11.6-14.8); WHITE BLOOD COUNT 13.9 K/UL (4.8-10.8)
[2020-08-07 07:34] LABS: CALCIUM 8.2 MG/DL (8.5-10.1); CREATININE 6.7 MG/DL (0.55-1.30); POTASSIUM 3.9 MMOL/L (3.5-5.1)
[2020-08-07 08:00] VITALS: BP 96/39
--- NOTE | 2020-08-07 08:13 | General Progress Note ---
Assessment/Plan Problem List: (1) Aspiration pneumonia ICD Codes: J69.0 - Pneumonitis due to inhalation of food and vomit SNOMED: 635853275 (2) Malfunctioning jejunostomy tube ICD Codes: K94.13 - Enterostomy malfunction SNOMED: 953986976, 036246672 (3) Anemia due to chronic kidney disease ICD Codes: N18.9 - Chronic kidney disease, unspecified; D63.1 - Anemia in chronic kidney disease SNOMED: 473148022 (4) ESRD (end stage renal disease) on dialysis ICD Codes: N18.6 - End stage renal disease; Z99.2 - Dependence on renal dialysis SNOMED: 765153327 (5) DM (diabetes mellitus) ICD Codes: E11.9 - Type 2 diabetes mellitus without complications SNOMED: 14210941 (6) HTN (hypertension) ICD Codes: I10 - Essential (primary) hypertension SNOMED: 05975468 Status: stable Assessment/Plan: s/p JT placement TF fu labs dc planning per primary team Subjective ROS Limited/Unobtainable: No Allergies: Coded Allergies: GABAPENTIN (Unverified Allergy, Unknown, 06/14/19) Objective Last 24 Hour Vital Signs Date Time Temp Pulse Resp B/P (MAP) Pulse Ox O2 Delivery O2 Flow Rate FiO2 08/07/20 08:00 101.3 91 18 96/39 (58) 100 08/07/20 04:00 98.1 81 19 104/41 (62) 98 08/07/20 04:00 87 08/07/20 00:00 88 08/07/20 00:00 98.1 56 20 94/52 (66) 99 08/06/20 21:00 Nasal Cannula 2.0 08/06/20 20:00 98.1 81 20 88/40 (56) 100 08/06/20 20:00 79 08/06/20 19:20 82 20 100 Nasal Cannula 2.0 28 08/06/20 19:06 83 20 97 Nasal Cannula 4.0 36 08/06/20 19:06 97 Nasal Cannula 4.0 36 08/06/20 19:06 83 20 97 Nasal Cannula 4.0 36 08/06/20 16:00 98.2 85 20 101/49 (66) 100 08/06/20 15:36 88 08/06/20 13:45 97.8 81 18 102/53 96 Nasal Cannula 81 81 08/06/20 13:29 82 22 102/57 98 Nasal Cannula 82 82 08/06/20 13:20 87 15 101/56 99 Nasal Cannula 81 81 08/06/20 13:15 86 17 95/51 96 Nasal Cannula 86 86 08/06/20 13:14 68 20 98 08/06/20 13:13 78 20 98 08/06/20 13:05 81 22 91/47 98 Nasal Cannula 81 81 08/06/20 13:04 97.5 86 22 124/70 99 Nasal Cannula 86 86 08/06/20 11:44 98.1 91 18 90/44 (59) 97 08/06/20 11:36 90 08/06/20 09:44 105/48 (67) 08/06/20 09:00 Nasal Cannula 2.0 Intake and Output 08/06/20 08/07/20 19:00 07:00 Intake Total 430 ml Output Total 0 ml Balance 430 ml IV Total 430 ml Output Hemodialysis UF 0 ml # Voids 1 1 # Bowel Movements 1 1 Laboratory Tests 08/06/20 08:40: White Blood Count 15.5H, Red Blood Count 4.06L, Hemoglobin 12.2, Hematocrit 38.7, Mean Corpuscular Volume 95, Mean Corpuscular Hemoglobin 30.1, Mean Corpuscular Hemoglobin Concent 31.5L, Red Cell Distribution Width 16.8H, Platelet Count 206, Mean Platelet Volume 6.9, Neutrophils (%) (Auto) 81.5H, Lymphocytes (%) (Auto) 6.2L, Monocytes (%) (Auto) 8.4, Eosinophils (%) (Auto) 2.7, Basophils (%) (Auto) 1.2, Sodium Level 135L, Potassium Level 5.3H, Chloride Level 94L, Carbon Dioxide Level 27, Anion Gap 14, Blood Urea Nitrogen 77H, Creatinine 8.5H, Estimat Glomerular Filtration Rate 5.5, Glucose Level 101, Calcium Level 8.6 08/06/20 11:13: POC Whole Blood Glucose 89 08/06/20 17:48: POC Whole Blood Glucose 69L 08/06/20 17:49: POC Whole Blood Glucose 59L 08/06/20 18:19: POC Whole Blood Glucose 181H 08/06/20 19:54: POC Whole Blood Glucose 104 08/07/20 01:22: POC Whole Blood Glucose 91 08/07/20 06:01: POC Whole Blood Glucose 77 08/07/20 06:15: White Blood Count 13.9H, Red Blood Count 3.39L, Hemoglobin 10.1L, Hematocrit 32.6L, Mean Corpuscular Volume 96, Mean Corpuscular Hemoglobin 29.8, Mean Corpuscular Hemoglobin Concent 31.0L, Red Cell Distribution Width 16.8H, Platelet Count 209, Mean Platelet Volume 6.9, Neutrophils (%) (Auto) 81.4H, Lymphocytes (%) (Auto) 6.0L, Monocytes (%) (Auto) 5.0, Eosinophils (%) (Auto) 6.9H, Basophils (%) (Auto) 0.6, Sodium Level 141, Potassium Level 3.9, Chloride Level 100, Carbon Dioxide Level 25, Anion Gap 16H, Blood Urea Nitrogen 52H, Creatinine 6.7H, Estimat Glomerular Filtration Rate 7.2, Glucose Level 79, Calcium Level 8.2L, Random Vancomycin Level 3.7 Height (Feet): 4 Height (Inches): 9.00 Weight (Pounds): 136 General Appearance: lethargic EENT: normal ENT inspection Neck: supple Cardiovascular: normal rate Respiratory/Chest: decreased breath sounds Abdomen: hypoactive bowel sounds Extremities: non-tender Ezequiel Perales MD Aug 07, 2020 08:13
[2020-08-07] MEDS: Midodrine 10mg tab ORAL SCH ×3 (08:18→17:08)
[2020-08-07] MEDS: Miralax 17gm pkt NG SCH ×2 (08:18→09:00)
[2020-08-07] MEDS: Aspirin Baby 81mg NG SCH (08:18)
[2020-08-07] MEDS: Nephrovite tab (Rena-Vite) NG SCH (08:18)
[2020-08-07] MEDS: timoloL maleate 0.5% Op Soln 2.5ml BOTH EYES SCH ×2 (08:22→17:13)
--- NOTE | 2020-08-07 09:14 | Procedure Note ---
DATE OF PROCEDURE: 08/06/2020 SURGEON: Ezequiel Perales MD. REFERRING PHYSICIAN: Pam Alcantar MD. PROCEDURE: Upper endoscopy with J-tube placement. ANESTHESIA: Per Dr. Hloder. INSTRUMENT: Olympus adult flexible upper endoscope. INDICATION: Dysphagia . REASON FOR PROCEDURE: The procedure, risks, benefits, and possible consequences, including hemorrhage, aspiration, perforation and infection, and alternative treatments, were explained to the patient/legal guardian by Dr. Ezequiel Perales and the patient/legal guardian understood and accepted these risks. PROCEDURE IN DETAIL: After informed consent was obtained and the patient was adequately sedated, Olympus upper endoscope was advanced from mouth into the second portion of the duodenum and retroflexion was performed in the stomach. Then, we introduced a 24-Telugu J-tube using a rat tooth alligator. J-tube was passed into the small bowel. When the tube was in a proper place, the balloon was inflated to keep this tube in place. The patient tolerated the procedure very well without any complication. SUMMARY OF FINDINGS: Status post successful J-tube placement. RECOMMENDATIONS: Keep the patient NPO for six hours, then J-tube can be used in six hours for feeding and for medications. I want to thank Dr. Alcantar for this kind referral. Ezequiel Perales M.D. DR: SPARKLE JOB#: [id number] CC:
--- NOTE | 2020-08-07 09:29 | General Progress Note ---
Assessment/Plan Status: stable Assessment/Plan: 1. fever - cont abx for now. 2. dislodged J tube - Replacement for disloged J tube per GI done yesterday. 3. ESRD - Renal following for HD. HD for today. 4. Elevated Troponin 2nd ESRD - resolved. 5. Possible Asp pneumonia - cont Zosyn IV and Vanco. ID is following. Duoneb q 6 hrs prn 6. Hypotension - improved. 7, HLD - cont home med. 8. DM II - cont SSI. 9. Anemia of chronic disease 10. Gout 11. H/o CVA 12. H/o PAD s/p AKA bilaterally. Subjective Date patient seen: Aug 07, 2020 Time patient seen: 09:10 Constitutional: Reports: fever HEENT: Reports: no symptoms Cardiovascular: Reports: no symptoms Respiratory: Reports: no symptoms Gastrointestinal/Abdominal: Reports: no symptoms Genitourinary: Reports: no symptoms Neurologic/Psychiatric: Reports: no symptoms Allergies: Coded Allergies: GABAPENTIN (Unverified Allergy, Unknown, 06/14/19) Subjective This morning, she had fever of 101. No chills. No sob or coughing. No nausea or vomiting. Objective Last 24 Hour Vital Signs Date Time Temp Pulse Resp B/P (MAP) Pulse Ox O2 Delivery O2 Flow Rate FiO2 08/07/20 08:49 100.0 08/07/20 08:00 101.3 91 18 96/39 (58) 100 08/07/20 04:00 98.1 81 19 104/41 (62) 98 08/07/20 04:00 87 08/07/20 00:00 88 08/07/20 00:00 98.1 56 20 94/52 (66) 99 08/06/20 21:00 Nasal Cannula 2.0 08/06/20 20:00 98.1 81 20 88/40 (56) 100 08/06/20 20:00 79 08/06/20 19:20 82 20 100 Nasal Cannula 2.0 28 08/06/20 19:06 83 20 97 Nasal Cannula 4.0 36 08/06/20 19:06 97 Nasal Cannula 4.0 36 08/06/20 19:06 83 20 97 Nasal Cannula 4.0 36 08/06/20 16:00 98.2 85 20 101/49 (66) 100 08/06/20 15:36 88 08/06/20 13:45 97.8 81 18 102/53 96 Nasal Cannula 81 81 08/06/20 13:29 82 22 102/57 98 Nasal Cannula 82 82 08/06/20 13:20 87 15 101/56 99 Nasal Cannula 81 81 08/06/20 13:15 86 17 95/51 96 Nasal Cannula 86 86 08/06/20 13:14 68 20 98 08/06/20 13:13 78 20 98 08/06/20 13:05 81 22 91/47 98 Nasal Cannula 81 81 08/06/20 13:04 97.5 86 22 124/70 99 Nasal Cannula 86 86 08/06/20 11:44 98.1 91 18 90/44 (59) 97 08/06/20 11:36 90 08/06/20 09:44 105/48 (67) Intake and Output 08/06/20 08/07/20 19:00 07:00 Intake Total 430 ml Output Total 0 ml Balance 430 ml IV Total 430 ml Output Hemodialysis UF 0 ml # Voids 1 1 # Bowel Movements 1 1 Laboratory Tests 08/06/20 11:13: POC Whole Blood Glucose 89 08/06/20 17:48: POC Whole Blood Glucose 69L 08/06/20 17:49: POC Whole Blood Glucose 59L 08/06/20 18:19: POC Whole Blood Glucose 181H 08/06/20 19:54: POC Whole Blood Glucose 104 08/07/20 01:22: POC Whole Blood Glucose 91 08/07/20 06:01: POC Whole Blood Glucose 77 08/07/20 06:15: White Blood Count 13.9H, Red Blood Count 3.39L, Hemoglobin 10.1L, Hematocrit 32.6L, Mean Corpuscular Volume 96, Mean Corpuscular Hemoglobin 29.8, Mean Corpuscular Hemoglobin Concent 31.0L, Red Cell Distribution Width 16.8H, Platelet Count 209, Mean Platelet Volume 6.9, Neutrophils (%) (Auto) 81.4H, Lymphocytes (%) (Auto) 6.0L, Monocytes (%) (Auto) 5.0, Eosinophils (%) (Auto) 6.9H, Basophils (%) (Auto) 0.6, Sodium Level 141, Potassium Level 3.9, Chloride Level 100, Carbon Dioxide Level 25, Anion Gap 16H, Blood Urea Nitrogen 52H, Creatinine 6.7H, Estimat Glomerular Filtration Rate 7.2, Glucose Level 79, Calcium Level 8.2L, Random Vancomycin Level 3.7 Height (Feet): 4 Height (Inches): 9.00 Weight (Pounds): 136 General Appearance: no apparent distress, alert Neck: non-tender, supple Cardiovascular: normal rate, regular rhythm Respiratory/Chest: lungs clear, no respiratory distress Abdomen: non tender, soft Extremities: non-tender Edema: no edema noted Arm (L), no edema noted Arm (R) Neurologic: alert, responsive Skin: warm/dry Pam Alcantar MD Aug 07, 2020 09:29
[2020-08-07] MEDS ORDERED: Vancomycin 1gm in D5W 275ml IVPB SCH (11:00)
--- NOTE | 2020-08-07 11:29 | Diagnostic Imaging Report ---
Procedure: XRAY Chest 1v Reason for study: Reason For Exam: SOB Comparison films: 08/04/2020. FINDINGS: Right subclavian vascular stent again identified. Vascularity is normal. The lung haq are clear bilaterally. Mild cardiomegaly and tortuous aorta unchanged. Calcified left hilar lymph node also unchanged. CP angles are sharp. The bony thorax appear unremarkable. IMPRESSION: NO SIGNIFICANT CHANGE COMPARED TO PREVIOUS EXAM.
[2020-08-07 11:53] VITALS: BP 99/33
[2020-08-07] MEDS ORDERED: Omnipaque-300 100ml vial INJ PRN (12:00)
[2020-08-07] MEDS ORDERED: Meropenem 1 GM in NS 55 ML IVPB SCH (12:00)
--- NOTE | 2020-08-07 12:42 | Nephrology Progress Note ---
Assessment/Plan Problem List: (1) ESRD (end stage renal disease) on dialysis (2) DM (diabetes mellitus) (3) HTN (hypertension) (4) Secondary hyperparathyroidism of renal origin (5) Malfunctioning jejunostomy tube (6) Aspiration pneumonia (7) Anemia Plan HD tomorrow follow labs abxs continue Midodrine start Epogen Subjective Subjective pt was hypotensive today Objective Objective Last 24 Hour Vital Signs Date Time Temp Pulse Resp B/P (MAP) Pulse Ox O2 Delivery O2 Flow Rate FiO2 08/07/20 12:16 75 08/07/20 11:53 99.7 71 18 99/33 (55) 98 08/07/20 09:00 Nasal Cannula 2.0 08/07/20 09:00 85 08/07/20 08:49 100.0 08/07/20 08:00 101.3 91 18 96/39 (58) 100 08/07/20 07:00 91 20 100 Nasal Cannula 2.0 28 08/07/20 07:00 100 Nasal Cannula 2.0 28 08/07/20 04:00 98.1 81 19 104/41 (62) 98 08/07/20 04:00 87 08/07/20 00:00 88 08/07/20 00:00 98.1 56 20 94/52 (66) 99 08/06/20 21:00 Nasal Cannula 2.0 08/06/20 20:00 98.1 81 20 88/40 (56) 100 08/06/20 20:00 79 08/06/20 19:20 82 20 100 Nasal Cannula 2.0 28 08/06/20 19:06 83 20 97 Nasal Cannula 4.0 36 08/06/20 19:06 97 Nasal Cannula 4.0 36 08/06/20 19:06 83 20 97 Nasal Cannula 4.0 36 08/06/20 16:00 98.2 85 20 101/49 (66) 100 08/06/20 15:36 88 08/06/20 13:45 97.8 81 18 102/53 96 Nasal Cannula 81 81 08/06/20 13:29 82 22 102/57 98 Nasal Cannula 82 82 08/06/20 13:20 87 15 101/56 99 Nasal Cannula 81 81 08/06/20 13:15 86 17 95/51 96 Nasal Cannula 86 86 08/06/20 13:14 68 20 98 08/06/20 13:13 78 20 98 08/06/20 13:05 81 22 91/47 98 Nasal Cannula 81 81 08/06/20 13:04 97.5 86 22 124/70 99 Nasal Cannula 86 86 Intake and Output 08/06/20 08/07/20 19:00 07:00 Intake Total 430 ml Output Total 0 ml Balance 430 ml IV Total 430 ml Output Hemodialysis UF 0 ml # Voids 1 1 # Bowel Movements 1 1 Laboratory Tests 08/06/20 17:48: POC Whole Blood Glucose 69L 08/06/20 17:49: POC Whole Blood Glucose 59L 08/06/20 18:19: POC Whole Blood Glucose 181H 08/06/20 19:54: POC Whole Blood Glucose 104 08/07/20 01:22: POC Whole Blood Glucose 91 08/07/20 06:01: POC Whole Blood Glucose 77 08/07/20 06:15: White Blood Count 13.9H, Red Blood Count 3.39L, Hemoglobin 10.1L, Hematocrit 32.6L, Mean Corpuscular Volume 96, Mean Corpuscular Hemoglobin 29.8, Mean Corpuscular Hemoglobin Concent 31.0L, Red Cell Distribution Width 16.8H, Platelet Count 209, Mean Platelet Volume 6.9, Neutrophils (%) (Auto) 81.4H, Lymphocytes (%) (Auto) 6.0L, Monocytes (%) (Auto) 5.0, Eosinophils (%) (Auto) 6.9H, Basophils (%) (Auto) 0.6, Sodium Level 141, Potassium Level 3.9, Chloride Level 100, Carbon Dioxide Level 25, Anion Gap 16H, Blood Urea Nitrogen 52H, C reatinine 6.7H, Estimat Glomerular Filtration Rate 7.2, Glucose Level 79, Calcium Level 8.2L, Random Vancomycin Level 3.7 08/07/20 11:10: POC Whole Blood Glucose 105 08/07/20 12:20: Lactic Acid Level [Pending], Cortisol AM Sample [Pending] Height (Feet): 4 Height (Inches): 9.00 Weight (Pounds): 136 Cardiovascular: normal rate Respiratory/Chest: rhonchi - bilaterally Extremities: other - no edema Aftab Arnold MD Aug 07, 2020 12:42
[2020-08-07] MEDS: Meropenem 500mg/NS 55ml IVPB SCH ×2 (13:32)
[2020-08-07] MEDS: Albuterol/Ipratropium 3ml neb HHN PRN (14:36)
--- NOTE | 2020-08-07 14:52 | Infectious Diseases Prog Note ---
Assessment/Plan Problems: (1) Sepsis Assessment & Plan: with fever and leukocytosis rule out intraabdominal process , will obtain CT ABD/Pelvis with contrast and repeat blood culture x 2 , upgrade antibiotics to meropenem and zyvox (2) Aspiration pneumonia Assessment & Plan: will upgrade Zosyn and vancomycin to meropenem and zyvox since spiked fever while on those antibiotics and repeat blood culture x 2 , pending sputum culture, aspiration precaution keep head of bed more than 30 all the time. repeat CXR for follow up (3) Colonization with VRE (vancomycin-resistant enterococcus) Assessment & Plan: keep patient in contact isolation (4) MRSA nasal colonization Assessment & Plan: keep patient in contact isolation (5) DM (diabetes mellitus) Assessment & Plan: recommend tight glycemic control to keep blood glucose between 80-120 (6) ESRD (end stage renal disease) on dialysis Assessment & Plan: continue hemodialysis as per renal service monitor daily weight (7) Malfunctioning jejunostomy tube Assessment & Plan: continue local site care with dressing and keep clean and dry to avoid infection pending placement of new tube on Wednesday, already on Zosyn treatment (8) Hypotension Assessment & Plan: suspect volume depletion , with negative blood culture so far, continue hydration as needed and monitor closely in tele Subjective ROS Limited/Unobtainable: Yes Constitutional: Reports: fever Allergies: Coded Allergies: GABAPENTIN (Unverified Allergy, Unknown, 06/14/19) she was lying in bed comfortable, more awake but unresponsive to verbal command, spiked fever of 101 today but no chills , has no cough or shortness of breath but still congested and has secretions with yellow color , had two loose bowel movements since am , still in tele unite . Objective Last 24 Hour Vital Signs Date Time Temp Pulse Resp B/P (MAP) Pulse Ox O2 Delivery O2 Flow Rate FiO2 08/07/20 12:16 75 08/07/20 11:53 99.7 71 18 99/33 (55) 98 08/07/20 09:00 Nasal Cannula 2.0 08/07/20 09:00 85 08/07/20 08:49 100.0 08/07/20 08:00 101.3 91 18 96/39 (58) 100 08/07/20 07:00 91 20 100 Nasal Cannula 2.0 28 08/07/20 07:00 100 Nasal Cannula 2.0 28 08/07/20 04:00 98.1 81 19 104/41 (62) 98 08/07/20 04:00 87 08/07/20 00:00 88 08/07/20 00:00 98.1 56 20 94/52 (66) 99 08/06/20 21:00 Nasal Cannula 2.0 08/06/20 20:00 98.1 81 20 88/40 (56) 100 08/06/20 20:00 79 08/06/20 19:20 82 20 100 Nasal Cannula 2.0 28 08/06/20 19:06 83 20 97 Nasal Cannula 4.0 36 08/06/20 19:06 97 Nasal Cannula 4.0 36 08/06/20 19:06 83 20 97 Nasal Cannula 4.0 36 08/06/20 16:00 98.2 85 20 101/49 (66) 100 08/06/20 15:36 88 Height (Feet): 4 Height (Inches): 9.00 Weight (Pounds): 136 General Appearance: WD/WN, no acute distress HEENT: normocephalic, atraumatic, anicteric, mucous membranes moist, PERRL Respiratory/Chest: chest wall non-tender, no respiratory distress, no accessory muscle use, decreased breath sounds, crackles/rales, expiratory wheezing Cardiovascular: normal peripheral pulses, normal rate, regular rhythm, no gallop/murmur, no JVD Abdomen: normal bowel sounds, soft, non tender, no organomegaly, non distended, no mass, other - J tube site looks ok Extremities: no cyanosis, no clubbing Skin: no rash, no lesions Neurologic/Psychiatric: unresponsiveness Lymphatic: no neck adenopathy, no groin adenopathy Musculoskeletal: normal muscle bulk Microbiology Date/Time Source Procedure Growth Status 08/05/20 15:52 Sputum Expectorated Gram Stain - Final Complete 08/05/20 15:52 Sputum Expectorated Sputum Culture - Final NORMAL UPPER RESPIRATORY BETHANIE PRESENT Complete 08/04/20 18:30 Blood Blood Culture - Preliminary NO GROWTH AFTER 48 HOURS Resulted 08/04/20 18:15 Blood Blood Culture - Preliminary NO GROWTH AFTER 48 HOURS Resulted Laboratory Tests Test 08/06/20 17:48 08/06/20 17:49 08/06/20 18:19 08/06/20 19:54 POC Whole Blood Glucose 69 MG/DL (74-106) L 59 MG/DL (74-106) L 181 MG/DL (74-106) H 104 MG/DL (74-106) Test 08/07/20 01:22 08/07/20 06:01 08/07/20 06:15 08/07/20 11:10 POC Whole Blood Glucose 91 MG/DL (74-106) 77 MG/DL (74-106) 105 MG/DL (74-106) White Blood Count 13.9 K/UL (4.8-10.8) H Red Blood Count 3.39 M/UL (4.20-5.40) L Hemoglobin 10.1 G/DL (12.0-16.0) L Hematocrit 32.6 % (37.0-47.0) L Mean Corpuscular Volume 96 FL (80-99) Mean Corpuscular Hemoglobin 29.8 PG (27.0-31.0) Mean Corpuscular Hemoglobin Concent 31.0 G/DL (32.0-36.0) L Red Cell Distribution Width 16.8 % (11.6-14.8) H Platelet Count 209 K/UL (150-450) Mean Platelet Volume 6.9 FL (6.5-10.1) Neutrophils (%) (Auto) 81.4 % (45.0-75.0) H Lymphocytes (%) (Auto) 6.0 % (20.0-45.0) L Monocytes (%) (Auto) 5.0 % (1.0-10.0) Eosinophils (%) (Auto) 6.9 % (0.0-3.0) H Basophils (%) (Auto) 0.6 % (0.0-2.0) Sodium Level 141 MMOL/L (136-145) Potassium Level 3.9 MMOL/L (3.5-5.1) Chloride Level 100 MMOL/L (98-107) Carbon Dioxide Level 25 MMOL/L (21-32) Anion Gap 16 mmol/L (5-15) H Blood Urea Nitrogen 52 mg/dL (7-18) H Creatinine 6.7 MG/DL (0.55-1.30) H Estimat Glomerular Filtration Rate 7.2 mL/min (>60) Glucose Level 79 MG/DL (74-106) Calcium Level 8.2 MG/DL (8.5-10.1) L Random Vancomycin Level 3.7 ug/mL Test 08/07/20 12:20 Lactic Acid Level 3.20 mmol/L (0.4-2.0) H Cortisol AM Sample Pending Current Medications Medications (Trade) Dose Ordered Sig/Selene Route PRN Reason Start Time Stop Time Status Last Admin Dose Admin Acetaminophen (Tylenol) 650 mg Q6H PRN ORAL For fever 08/07/20 08:15 09/06/20 08:14 08/07/20 08:19 Albumin Human 500 ml @ 500 mls/hr Q1H PRN IV sbp<90 during hd 08/08/20 06:00 08/08/20 23:59 Albuterol/ Ipratropium (Albuterol/ Ipratropium) 3 ml Q6H PRN HHN Shortness of Breath 08/05/20 12:00 08/10/20 11:59 08/07/20 14:36 Aspirin (ASA) 81 mg DAILY NG 08/06/20 09:00 09/17/20 08:59 08/07/20 08:18 Barium Sulfate (Readi-Cat 2) 450 ml NOW PRN ORAL Radiology Procedure 08/07/20 12:00 08/09/20 11:59 Dextrose (Dextrose 50%) 25 ml Q30M PRN IV Hypoglycemia 08/05/20 11:30 11/01/20 02:59 Dextrose (Dextrose 50%) 50 ml Q30M PRN IV Hypoglycemia 08/05/20 11:30 11/01/20 02:59 08/06/20 18:01 Epoetin Alli (Epoetin Lali(ESRD on dialysis)) 4,000 unit WED-WED-WED SUBQ 08/07/20 21:00 11/05/20 20:59 Folic Acid (Folate) 1 mg DAILY NG 08/06/20 09:00 09/02/20 08:59 08/07/20 08:18 Heparin Sodium (Porcine) (Heparin Sod 1000 units/ml 10ml) 500 unit ONCE PRN IV HD 08/08/20 06:00 08/08/20 23:59 Heparin Sodium (Porcine) (Heparin) 1,000 unit POSTHD PRN INJ POST HD 08/08/20 06:00 08/08/20 23:59 Iohexol (OMNIPAQUE-300 100ml) 100 ml NOW PRN INJ Radiology Procedure 08/07/20 12:00 08/09/20 11:59 Linezolid 300 ml @ 300 mls/hr Q12HR IVPB 08/07/20 13:00 08/14/20 12:59 08/07/20 13:30 Meropenem 500 mg/ Sodium Chloride 55 ml @ 110 mls/hr Q24H IVPB 08/07/20 13:00 08/12/20 12:59 08/07/20 13:32 Midodrine (Pro-Amatine) 10 mg THREE TIMES A DAY ORAL 08/06/20 21:30 11/04/20 21:29 08/07/20 13:30 Polyethylene Glycol (Miralax) 17 gm DAILY NG 08/06/20 09:00 09/02/20 08:59 08/07/20 08:18 Pravastatin Sodium (Pravachol) 20 mg BEDTIME NG 08/05/20 21:00 09/02/20 20:59 08/06/20 20:43 Sennosides (Senokot) 17.2 mg Q24H PRN NG CONSTIPATION 08/05/20 11:30 09/01/20 11:29 Timolol Maleate (timoloL maleate 0.5% Op Soln) 1 drop BID BOTH EYES 08/05/20 18:00 09/02/20 08:59 08/07/20 08:22 Vitamin B Complex/ Vit C/Folic Acid (Nephrovite) 1 tab DAILY NG 08/06/20 09:00 09/02/20 08:59 08/07/20 08:18 Morteza Castillo M.D. Aug 07, 2020 14:52
[2020-08-07 16:00] VITALS: BP 104/39
[2020-08-07 20:00] VITALS: BP 95/37
[2020-08-07] MEDS: Epoetin Alfa-EPBX(ESRD on dialysis)4000 units/ml vial SUBQ SCH (20:14)
--- NOTE | 2020-08-07 22:02 | Cardiology Report ---
APPROVED REPORT EKG Measurement Heart [id number] <Conclusion> Sinus rhythm with premature atrial complexes Inferior infarct, age undetermined Abnormal ECG
[2020-08-08] VITALS: BP 111/44
[2020-08-08 04:00] VITALS: BP 111/45
[2020-08-08] MEDS ORDERED: Heparin Sod 1000 units/ml 10ml IV PRN (06:00)
[2020-08-08] MEDS ORDERED: Heparin 1000 units/ml 1ml Vial INJ PRN (06:00)
[2020-08-08 07:31] LABS: BASOPHILS % (AUTO) 0.6 % (0.0-2.0); EOSINOPHILS % (AUTO) 7.7 % (0.0-3.0); HEMOGLOBIN 9.8 G/DL (12.0-16.0); MEAN CORPUSCULAR VOLUME 96 FL (80-99); MONOCYTES % (AUTO) 5.6 % (1.0-10.0); NEUTROPHILS % (AUTO) 78.1 % (45.0-75.0); PLATELET COUNT 189 K/UL (150-450); RED BLOOD COUNT 3.25 M/UL (4.20-5.40); RED CELL DISTRIBUTION WIDTH 16.8 % (11.6-14.8)
[2020-08-08 07:49] LABS: CREATININE 7.8 MG/DL (0.55-1.30); PHOSPHORUS 3.5 MG/DL (2.5-4.9); POTASSIUM 3.4 MMOL/L (3.5-5.1)
[2020-08-08 08:00] VITALS: BP 117/41
[2020-08-08] MEDS: Midodrine 10mg tab ORAL SCH ×3 (08:19→18:27)
[2020-08-08] MEDS: Aspirin Baby 81mg NG SCH (08:19)
[2020-08-08] MEDS: Nephrovite tab (Rena-Vite) NG SCH (08:19)
[2020-08-08] MEDS: Miralax 17gm pkt NG SCH (08:20)
[2020-08-08] MEDS: timoloL maleate 0.5% Op Soln 2.5ml BOTH EYES SCH ×2 (08:21→18:28)
--- NOTE | 2020-08-08 09:10 | General Progress Note ---
Subjective Date patient seen: Aug 08, 2020 Time patient seen: 09:00 Constitutional: Reports: no symptoms HEENT: Reports: no symptoms Cardiovascular: Reports: no symptoms Respiratory: Reports: no symptoms Gastrointestinal/Abdominal: Reports: no symptoms Genitourinary: Reports: no symptoms Allergies: Coded Allergies: GABAPENTIN (Unverified Allergy, Unknown, 06/14/19) Subjective This morning, she is doing better. no fever or chills. No sob or coughing. No nausea or vomiting. Objective Last 24 Hour Vital Signs Date Time Temp Pulse Resp B/P (MAP) Pulse Ox O2 Delivery O2 Flow Rate FiO2 08/08/20 08:00 98.1 66 18 117/41 (66) 98 08/08/20 04:00 65 08/08/20 04:00 98.1 61 20 111/45 (67) 100 08/08/20 00:00 66 08/08/20 00:00 98.1 64 18 111/44 (66) 100 08/07/20 21:00 Nasal Cannula 2.0 08/07/20 20:00 98.1 65 17 95/37 (56) 100 08/07/20 20:00 64 08/07/20 19:14 74 18 98 Nasal Cannula 2.0 28 08/07/20 19:14 98 Nasal Cannula 2.0 28 08/07/20 17:38 99.9 08/07/20 16:00 100.6 74 18 104/39 (60) 100 08/07/20 15:13 75 08/07/20 14:46 76 20 100 Nasal Cannula 2.0 28 74 20 100 08/07/20 12:16 75 08/07/20 11:53 99.7 71 18 99/33 (55) 98 Intake and Output 08/07/20 08/08/20 19:00 07:00 Intake Total 795 ml Balance 795 ml IV Total 355 ml Tube Feeding 440 ml # Voids 1 # Bowel Movements 3 1 Laboratory Tests 08/07/20 11:10: POC Whole Blood Glucose 105 08/07/20 12:20: Lactic Acid Level 3.20H, Cortisol AM Sample 12.4 08/07/20 17:18: POC Whole Blood Glucose 114H 08/07/20 23:30: POC Whole Blood Glucose 108H 08/08/20 05:44: POC Whole Blood Glucose 82 08/08/20 06:53: White Blood Count 13.0H, Red Blood Count 3.25L, Hemoglobin 9.8L, Hematocrit 31.0L, Mean Corpuscular Volume 96, Mean Corpuscular Hemoglobin 30.0, Mean Corpu scular Hemoglobin Concent 31.5L, Red Cell Distribution Width 16.8H, Platelet Count 189, Mean Platelet Volume 6.4L, Neutrophils (%) (Auto) 78.1H, Lymphocytes (%) (Auto) 8.0L, Monocytes (%) (Auto) 5.6, Eosinophils (%) (Auto) 7.7H, Basophils (%) (Auto) 0.6, Sodium Level 136, Potassium Level 3.4L, Chloride Level 96L, Carbon Dioxide Level 27, Anion Gap 13, Blood Urea Nitrogen 63H, Creatinine 7.8H, Estimat Glomerular Filtration Rate 6.1, Glucose Level 82, Calcium Level 8.0L, Phosphorus Level 3.5 Height (Feet): 4 Height (Inches): 9.00 Weight (Pounds): 136 General Appearance: no apparent distress, alert EENT: normal ENT inspection Neck: non-tender, supple Cardiovascular: normal rate, regular rhythm Respiratory/Chest: lungs clear, normal breath sounds Abdomen: non tender, soft Extremities: non-tender Edema: no edema noted Arm (L), no edema noted Arm (R) Skin: warm/dry Assessment/Plan Status: stable Assessment/Plan: 1. fever - resolved. on meropenem and zyvox per ID. CXR negative. 2. dislodged J tube - Replacement for disloged J tube per GI done yesterday. 3. ESRD - Renal following for HD. HD for today. 4. Elevated Troponin 2nd ESRD - resolved. 5. Possible Asp pneumonia - on meropenem and zyvox per ID. Duoneb q 6 hrs prn 6. Hypotension - resolved. 7, HLD - cont home med. 8. DM II - cont SSI. 9. Anemia of chronic disease 10. Gout 11. H/o CVA 12. H/o PAD s/p AKA bilaterally. Pam Alcantar MD Aug 08, 2020 09:10
--- NOTE | 2020-08-08 11:56 | Operative Note - PDOC ---
Operative Note Operative Note Date of Operation/Procedure: Aug 08, 2020 Pre-op Diagnosis: sepsis poor iv access ESRD on dialysis Procedure: Right femoral central venous catheter insertion Post-op Diagnosis: same as pre-op Surgeon: Willian Machado MD Anesthesiologist: britton Anesthesia: local Specimen: none Complications: none Condition: stable Estimated Blood Loss: none Drains: none Implant(s) used?: No Indications for Procedure With bilateral lower extremity amputations end-stage renal disease upper extremity fistula poor venous access unable to obtain IV line multiple nurses of attempted given condition history and care plan patient requires line for fluids meds antibiotics and treatment. Centimeters catheter indicated recommended consent obtained from patient's son over the phone. Description of Procedure Patient was made comfortable the bedside in supine position. The right groin was prepped and draped in the same surgical fashion. 1% lidocaine was infiltrated. The right femoral vein was cannulated on second stick without complication. Good venous flow identified. Guidewire placed over needle needle removed. Small skin incision made around the guidewire. Dilator used. Triple- lumen catheter inserted over the guidewire without complication. Guidewire removed and discarded. All 3 ports flushed and aspirated appropriately. Line sutured in place dressings applied. Patient taught procedure well. Line okay to use. Willian Machado Aug 08, 2020 11:56
[2020-08-08 12:00] VITALS: BP 117/40
[2020-08-08] MEDS: Meropenem 500mg/NS 55ml IVPB SCH ×2 (13:23)
--- NOTE | 2020-08-08 13:44 | General Progress Note ---
Subjective ROS Limited/Unobtainable: No Allergies: Coded Allergies: GABAPENTIN (Unverified Allergy, Unknown, 06/14/19) Objective Last 24 Hour Vital Signs Date Time Temp Pulse Resp B/P (MAP) Pulse Ox O2 Delivery O2 Flow Rate FiO2 08/08/20 12:00 59 08/08/20 12:00 97.5 59 18 117/40 (65) 98 08/08/20 09:00 Nasal Cannula 2.0 08/08/20 08:00 64 08/08/20 08:00 98.1 66 18 117/41 (66) 98 08/08/20 04:00 65 08/08/20 04:00 98.1 61 20 111/45 (67) 100 08/08/20 00:00 66 08/08/20 00:00 98.1 64 18 111/44 (66) 100 08/07/20 21:00 Nasal Cannula 2.0 08/07/20 20:00 98.1 65 17 95/37 (56) 100 08/07/20 20:00 64 08/07/20 19:14 74 18 98 Nasal Cannula 2.0 28 08/07/20 19:14 98 Nasal Cannula 2.0 28 08/07/20 17:38 99.9 08/07/20 16:00 100.6 74 18 104/39 (60) 100 08/07/20 15:13 75 08/07/20 14:46 76 20 100 Nasal Cannula 2.0 28 74 20 100 Intake and Output 08/07/20 08/08/20 19:00 07:00 Intake Total 795 ml Balance 795 ml IV Total 355 ml Tube Feeding 440 ml # Voids 1 # Bowel Movements 3 1 Laboratory Tests 08/07/20 17:18: POC Whole Blood Glucose 114H 08/07/20 23:30: POC Whole Blood Glucose 108H 08/08/20 05:44: POC Whole Blood Glucose 82 08/08/20 06:53: White Blood Count 13.0H, Red Blood Count 3.25L, Hemoglobin 9.8L, Hematocrit 31.0L, Mean Corpuscular Volume 96, Mean Corpuscular Hemoglobin 30.0, Mean Corpuscular Hemoglobin Concent 31.5L, Red Cell Distribution Width 16.8H, Platelet Count 189, Mean Platelet Volume 6.4L, Neutrophils (%) (Auto) 78.1H, Lymphocytes (%) (Auto) 8.0L, Monocytes (%) (Auto) 5.6, Eosinophils (%) (Auto) 7.7H, Basophils (%) (Auto) 0.6, Sodium Level 136, Potassium Level 3.4L, Chloride Level 96L, Carbon Dioxide Level 27, Anion Gap 13, Blood Urea Nitrogen 63H, Creatinine 7.8H, Estimat Glomerular Filtration Rate 6.1, Glucose Level 82, Calcium Level 8.0L, Phosphorus Level 3.5 08/08/20 13:19: POC Whole Blood Glucose 72L Height (Feet): 4 Height (Inches): 9.00 Weight (Pounds): 136 General Appearance: no apparent distress EENT: normal ENT inspection Neck: supple Cardiovascular: normal rate Respiratory/Chest: decreased breath sounds Abdomen: normal bowel sounds, non tender, soft Assessment/Plan Problem List: (1) Aspiration pneumonia ICD Codes: J69.0 - Pneumonitis due to inhalation of food and vomit SNOMED: 440178425 (2) Malfunctioning jejunostomy tube ICD Codes: K94.13 - Enterostomy malfunction SNOMED: 328864384, 318060509 (3) Anemia due to chronic kidney disease ICD Codes: N18.9 - Chronic kidney disease, unspecified; D63.1 - Anemia in chronic kidney disease SNOMED: 086190373 (4) ESRD (end stage renal disease) on dialysis ICD Codes: N18.6 - End stage renal disease; Z99.2 - Dependence on renal dialysis SNOMED: 122714380 (5) DM (diabetes mellitus) ICD Codes: E11.9 - Type 2 diabetes mellitus without complications SNOMED: 65352358 (6) HTN (hypertension) ICD Codes: I10 - Essential (primary) hypertension SNOMED: 00692801 Status: stable Assessment/Plan: s/p JT placement TF fu labs dc planning per primary team Ezequiel Perales MD Aug 08, 2020 13:44
--- NOTE | 2020-08-08 13:51 | Nephrology Progress Note ---
Assessment/Plan Problem List: (1) ESRD (end stage renal disease) on dialysis (2) DM (diabetes mellitus) (3) HTN (hypertension) (4) Secondary hyperparathyroidism of renal origin (5) Malfunctioning jejunostomy tube (6) Aspiration pneumonia (7) Anemia Plan HD today may need to moreno Tube feed if K remains low follow labs abxs continue Midodrine Continue Epogen Subjective Subjective poor appetite Objective Objective Last 24 Hour Vital Signs Date Time Temp Pulse Resp B/P (MAP) Pulse Ox O2 Delivery O2 Flow Rate FiO2 08/08/20 12:00 59 08/08/20 12:00 97.5 59 18 117/40 (65) 98 08/08/20 09:00 Nasal Cannula 2.0 08/08/20 08:00 64 08/08/20 08:00 98.1 66 18 117/41 (66) 98 08/08/20 04:00 65 08/08/20 04:00 98.1 61 20 111/45 (67) 100 08/08/20 00:00 66 08/08/20 00:00 98.1 64 18 111/44 (66) 100 08/07/20 21:00 Nasal Cannula 2.0 08/07/20 20:00 98.1 65 17 95/37 (56) 100 08/07/20 20:00 64 08/07/20 19:14 74 18 98 Nasal Cannula 2.0 28 08/07/20 19:14 98 Nasal Cannula 2.0 28 08/07/20 17:38 99.9 08/07/20 16:00 100.6 74 18 104/39 (60) 100 08/07/20 15:13 75 08/07/20 14:46 76 20 100 Nasal Cannula 2.0 28 74 20 100 Intake and Output 08/07/20 08/08/20 19:00 07:00 Intake Total 795 ml Balance 795 ml IV Total 355 ml Tube Feeding 440 ml # Voids 1 # Bowel Movements 3 1 Laboratory Tests 08/07/20 17:18: POC Whole Blood Glucose 114H 08/07/20 23:30: POC Whole Blood Glucose 108H 08/08/20 05:44: POC Whole Blood Glucose 82 08/08/20 06:53: White Blood Count 13.0H, Red Blood Count 3.25L, Hemoglobin 9.8L, Hematocrit 31.0L, Mean Corpuscular Volume 96, Mean Corpuscular Hemoglobin 30.0, Mean Corpuscular Hemoglobin Concent 31.5L, Red Cell Distribution Width 16.8H, Platelet Count 189, Mean Platelet Volume 6.4L, Neutrophils (%) (Auto) 78.1H, Lymphocytes (%) (Auto) 8.0L, Monocytes (%) (Auto) 5.6, Eosinophils (%) (Auto) 7.7H, Basophils (%) (Auto) 0.6, Sodium Level 136, Potassium Level 3.4L, Chloride Level 96L, Carbon Dioxide Level 27, Anion Gap 13, Blood Urea Nitrogen 63H, Creatinine 7.8H, Estimat Glomerular Filtration Rate 6.1, Glucose Level 82, Calcium Level 8.0L, Phosphorus Level 3.5 08/08/20 13:19: POC Whole Blood Glucose 72L Height (Feet): 4 Height (Inches): 9.00 Weight (Pounds): 136 Cardiovascular: normal rate Respiratory/Chest: lungs clear Extremities: trace edema Aftab Arnold MD Aug 08, 2020 13:51
--- NOTE | 2020-08-08 15:06 | Diagnostic Imaging Report ---
EXAM: CT CT Abdomen Pelvis WO Contrast INDICATION: Abdominal pain. Jejunostomy tube dislodged. Status post reinsertion. Evaluate for abscess. COMPARISON: None TECHNIQUE: Axial images were obtained through the abdomen pelvis without intravenous contrast. Sagittal and coronal reformats are generated. All CT scans at this facility are performed using dose modulation techniques as appropriate to a performed exam including the following: automated exposure control with adjustment of the mA and/or kV according to patient size. RADIATION DOSE: CTDIvol: 12.7 mGy DLP: 695.8 mGy-cm Dose information generated by the CT scanner is available in PACS. FINDINGS: Mild atelectasis is noted in the lung bases. There is pleural thickening and pleural calcification posterior right lung base. Images through the upper abdomen limited by streak artifact from the patient's arm position. There is a nonspecific hypodense lesion in the right lobe of the liver measuring approximately 2.2 x 1.9 cm. The spleen is homogeneous. There are multiple gallstones. The pancreas is unremarkable. Adrenals are normal in morphology. [place] kidneys are atrophic with extensive renal vascular calcifications. Multiple small cysts noted. There is a GJ tube in place. Small bowel loops are nondistended. The colon is also nondistended with average amount of stool. The appendix is not visualized. There is no free fluid or free air. No pathologic adenopathy demonstrated. Urinary bladder is empty. There is an IVC filter in place. Degenerative changes of the spine noted. There is a small fatty umbilical hernia. IMPRESSION: GJ TUBE IN PLACE. NO EVIDENCE OF FLUID COLLECTION OR ABSCESS. POSTOPERATIVE CHANGES IN THE LUNG BASES WITH PLEURAL THICKENING AND PLEURAL CALCIFICATION. NONSPECIFIC HYPODENSE LESION IN THE RIGHT LOBE OF THE LIVER. CONSIDER CORRELATION WITH TRIPLE PHASE CONTRAST EXAM. GALLSTONES. ATROPHIC PILOT STATION KIDNEYS WITH SMALL CYSTS. SMALL FATTY UMBILICAL HERNIA. IVC FILTER IN PLACE.
[2020-08-08 16:00] VITALS: BP 96/80
--- NOTE | 2020-08-08 17:24 | Infectious Diseases Prog Note ---
Assessment/Plan Problems: (1) Sepsis Assessment & Plan: with fever and leukocytosis suspect aspiration pneumonia with no evidence of intraabdominal process to explain it on CT ABD/Pelvis with contrast, repeated blood culture x 2 is negative , continue meropenem and zyvox for now (2) Aspiration pneumonia Assessment & Plan: continue meropenem and zyvox for now , await repeated blood culture x 2 , and sputum culture, aspiration precaution keep head of bed more than 30 all the time. repeat CXR for follow up (3) Colonization with VRE (vancomycin-resistant enterococcus) Assessment & Plan: keep patient in contact isolation (4) MRSA nasal colonization Assessment & Plan: keep patient in contact isolation (5) DM (diabetes mellitus) Assessment & Plan: recommend tight glycemic control to keep blood glucose between 80-120 (6) ESRD (end stage renal disease) on dialysis Assessment & Plan: continue hemodialysis as per renal service monitor daily weight (7) Malfunctioning jejunostomy tube Assessment & Plan: continue local site care with dressing and keep clean and dry to avoid infection pending placement of new tube on Wednesday, already on Zosyn treatment (8) Liver mass, right lobe Assessment & Plan: may need three phase CT liver to confirm Subjective ROS Limited/Unobtainable: Yes Allergies: Coded Allergies: GABAPENTIN (Unverified Allergy, Unknown, 06/14/19) she was lying in bed comfortable, awake but unresponsive to verbal command, no longer has fever and no chills , has mild cough but no shortness of breath, still congested and has secretions with yellow color , had loose bowel movements Objective Last 24 Hour Vital Signs Date Time Temp Pulse Resp B/P (MAP) Pulse Ox O2 Delivery O2 Flow Rate FiO2 08/08/20 16:00 69 08/08/20 16:00 98.3 49 18 96/80 (85) 99 08/08/20 12:00 59 08/08/20 12:00 97.5 59 18 117/40 (65) 98 08/08/20 09:00 Nasal Cannula 2.0 08/08/20 08:43 98 Nasal Cannula 2.0 28 08/08/20 08:43 69 18 98 Nasal Cannula 2.0 28 08/08/20 08:00 64 08/08/20 08:00 98.1 66 18 117/41 (66) 98 08/08/20 04:00 65 08/08/20 04:00 98.1 61 20 111/45 (67) 100 08/08/20 00:00 66 08/08/20 00:00 98.1 64 18 111/44 (66) 100 08/07/20 21:00 Nasal Cannula 2.0 08/07/20 20:00 98.1 65 17 95/37 (56) 100 08/07/20 20:00 64 08/07/20 19:14 74 18 98 Nasal Cannula 2.0 28 08/07/20 19:14 98 Nasal Cannula 2.0 28 08/07/20 17:38 99.9 Height (Feet): 4 Height (Inches): 9.00 Weight (Pounds): 136 General Appearance: WD/WN, no acute distress HEENT: normocephalic, atraumatic, anicteric, mucous membranes moist, PERRL Respiratory/Chest: chest wall non-tender, no respiratory distress, no accessory muscle use, decreased breath sounds, crackles/rales Cardiovascular: normal peripheral pulses, normal rate, regular rhythm, no gallop/murmur, no JVD Abdomen: normal bowel sounds, soft, non tender, no organomegaly, non distended, no mass, no scars Genitourinary: normal external genitalia Extremities: no cyanosis, no clubbing Skin: no rash, no lesions, ulcers Neurologic/Psychiatric: unresponsiveness Lymphatic: no neck adenopathy, no groin adenopathy Musculoskeletal: normal muscle bulk, no effusion Microbiology Date/Time Source Procedure Growth Status 08/07/20 17:45 Stool Clostridium difficile Toxin Assay - Final Complete Laboratory Tests Test 08/07/20 23:30 08/08/20 05:44 08/08/20 06:53 08/08/20 13:19 POC Whole Blood Glucose 108 MG/DL (74-106) H 82 MG/DL (74-106) 72 MG/DL (74-106) L White Blood Count 13.0 K/UL (4.8-10.8) H Red Blood Count 3.25 M/UL (4.20-5.40) L Hemoglobin 9.8 G/DL (12.0-16.0) L Hematocrit 31.0 % (37.0-47.0) L Mean Corpuscular Volume 96 FL (80-99) Mean Corpuscular Hemoglobin 30.0 PG (27.0-31.0) Mean Corpuscular Hemoglobin Concent 31.5 G/DL (32.0-36.0) L Red Cell Distribution Width 16.8 % (11.6-14.8) H Platelet Count 189 K/UL (150-450) Mean Platelet Volume 6.4 FL (6.5-10.1) L Neutrophils (%) (Auto) 78.1 % (45.0-75.0) H Lymphocytes (%) (Auto) 8.0 % (20.0-45.0) L Monocytes (%) (Auto) 5.6 % (1.0-10.0) Eosinophils (%) (Auto) 7.7 % (0.0-3.0) H Basophils (%) (Auto) 0.6 % (0.0-2.0) Sodium Level 136 MMOL/L (136-145) Potassium Level 3.4 MMOL/L (3.5-5.1) L Chloride Level 96 MMOL/L (98-107) L Carbon Dioxide Level 27 MMOL/L (21-32) Anion Gap 13 mmol/L (5-15) Blood Urea Nitrogen 63 mg/dL (7-18) H Creatinine 7.8 MG/DL (0.55-1.30) H Estimat Glomerular Filtration Rate 6.1 mL/min (>60) Glucose Level 82 MG/DL (74-106) Calcium Level 8.0 MG/DL (8.5-10.1) L Phosphorus Level 3.5 MG/DL (2.5-4.9) Current Medications Medications (Trade) Dose Ordered Sig/Selene Route PRN Reason Start Time Stop Time Status Last Admin Dose Admin Acetaminophen (Tylenol) 650 mg Q6H PRN ORAL For fever 08/07/20 08:15 09/06/20 08:14 08/07/20 17:08 Albumin Human 500 ml @ 500 mls/hr Q1H PRN IV sbp<90 during hd 08/08/20 06:00 08/08/20 23:59 Albuterol/ Ipratropium (Albuterol/ Ipratropium) 3 ml Q6H PRN HHN Shortness of Breath 08/05/20 12:00 08/10/20 11:59 08/07/20 14:36 Aspirin (ASA) 81 mg DAILY NG 08/06/20 09:00 09/17/20 08:59 08/08/20 08:19 Barium Sulfate (Readi-Cat 2) 450 ml NOW PRN ORAL Radiology Procedure 08/07/20 12:00 08/09/20 11:59 08/08/20 08:20 Dextrose (Dextrose 50%) 25 ml Q30M PRN IV Hypoglycemia 08/05/20 11:30 11/01/20 02:59 Dextrose (Dextrose 50%) 50 ml Q30M PRN IV Hypoglycemia 08/05/20 11:30 11/01/20 02:59 08/06/20 18:01 Epoetin Alli (Epoetin Alli(ESRD on dialysis)) 4,000 unit WED-WED-WED SUBQ 08/07/20 21:00 11/05/20 20:59 08/07/20 20:14 Folic Acid (Folate) 1 mg DAILY NG 08/06/20 09:00 09/02/20 08:59 08/08/20 08:19 Heparin Sodium (Porcine) (Heparin Sod 1000 units/ml 10ml) 500 unit ONCE PRN IV HD 08/08/20 06:00 08/08/20 23:59 Heparin Sodium (Porcine) (Heparin) 1,000 unit POSTHD PRN INJ POST HD 08/08/20 06:00 08/08/20 23:59 Iohexol (OMNIPAQUE-300 100ml) 100 ml NOW PRN INJ Radiology Procedure 08/07/20 12:00 08/09/20 11:59 Linezolid 300 ml @ 300 mls/hr Q12HR IVPB 08/07/20 13:00 08/14/20 12:59 08/07/20 20:13 Meropenem 500 mg/ Sodium Chloride 55 ml @ 110 mls/hr Q24H IVPB 08/07/20 13:00 08/12/20 12:59 08/08/20 13:23 Midodrine (Pro-Amatine) 10 mg THREE TIMES A DAY ORAL 08/06/20 21:30 11/04/20 21:29 08/08/20 14:34 Polyethylene Glycol (Miralax) 17 gm DAILY NG 08/06/20 09:00 09/02/20 08:59 Pravastatin Sodium (Pravachol) 20 mg BEDTIME NG 08/05/20 21:00 09/02/20 20:59 08/07/20 20:13 Sennosides (Senokot) 17.2 mg Q24H PRN NG CONSTIPATION 08/05/20 11:30 09/01/20 11:29 Timolol Maleate (timoloL maleate 0.5% Op Soln) 1 drop BID BOTH EYES 08/05/20 18:00 09/02/20 08:59 08/08/20 08:21 Vitamin B Complex/ Vit C/Folic Acid (Nephrovite) 1 tab DAILY NG 08/06/20 09:00 09/02/20 08:59 08/08/20 08:19 Morteza Castillo M.D. Aug 08, 2020 17:23
[2020-08-08 20:00] VITALS: BP 124/43
[2020-08-09] VITALS: BP 127/45
[2020-08-09 04:00] VITALS: BP 123/48
[2020-08-09 08:00] VITALS: BP 128/68
[2020-08-09] MEDS: Midodrine 10mg tab ORAL SCH ×3 (08:35→18:00)
[2020-08-09] MEDS: Aspirin Baby 81mg NG SCH (08:35)
[2020-08-09] MEDS: timoloL maleate 0.5% Op Soln 2.5ml BOTH EYES SCH ×2 (08:36→18:40)
[2020-08-09] MEDS: Nephrovite tab (Rena-Vite) NG SCH (08:36)
[2020-08-09] MEDS: Miralax 17gm pkt NG SCH (08:36)
--- NOTE | 2020-08-09 09:10 | General Progress Note ---
Subjective Date patient seen: Aug 09, 2020 Time patient seen: 08:50 Constitutional: Reports: no symptoms HEENT: Reports: no symptoms Cardiovascular: Reports: no symptoms Respiratory: Reports: no symptoms Gastrointestinal/Abdominal: Reports: no symptoms Genitourinary: Reports: no symptoms Neurologic/Psychiatric: Reports: other - does not respond to command Allergies: Coded Allergies: GABAPENTIN (Unverified Allergy, Unknown, 06/14/19) Subjective This morning, she had low grade temp. CT of abd were negative for abscess. No sob or coughing. No nausea or vomiting. Objective Last 24 Hour Vital Signs Date Time Temp Pulse Resp B/P (MAP) Pulse Ox O2 Delivery O2 Flow Rate FiO2 08/09/20 04:00 72 08/09/20 04:00 97.9 72 20 123/48 (73) 97 08/09/20 00:00 72 08/09/20 00:00 99.5 72 23 127/45 (72) 97 08/08/20 21:00 Nasal Cannula 2.0 08/08/20 20:00 99.1 76 20 124/43 (70) 100 08/08/20 20:00 77 08/08/20 19:40 69 18 98 Nasal Cannula 2.0 28 08/08/20 19:40 98 Nasal Cannula 2.0 28 08/08/20 16:00 69 08/08/20 16:00 98.3 49 18 96/80 (85) 99 08/08/20 12:00 59 08/08/20 12:00 97.5 59 18 117/40 (65) 98 Intake and Output 08/08/20 08/09/20 19:00 07:00 Intake Total 40 ml Output Total 0 ml Balance 0 ml 40 ml Tube Feeding 40 ml Output Hemodialysis UF 0 ml # Bowel Movements 2 1 Laboratory Tests 08/08/20 13:19: POC Whole Blood Glucose 72L 08/08/20 17:47: POC Whole Blood Glucose 63L 08/09/20 00:57: POC Whole Blood Glucose 99 08/09/20 06:12: POC Whole Blood Glucose 94 Height (Feet): 4 Height (Inches): 9.00 Weight (Pounds): 136 General Appearance: no apparent distress, alert EENT: normal ENT inspection Neck: non-tender, supple Cardiovascular: normal rate, regular rhythm Abdomen: non tender, soft Edema: no edema noted Arm (L), no edema noted Arm (R) Neurologic: alert, responsive Skin: warm/dry Assessment/Plan Status: stable Assessment/Plan: 1. fever - CT of abd negative for abscess. on meropenem and zyvox per ID. CXR negative. will consider D/C back to [facility] tomorrow. 2. dislodged J tube - Replacement for disloged J tube per GI done yesterday. 3. ESRD - Renal following for HD. HD for today. 4. Elevated Troponin 2nd ESRD - resolved. 5. Possible Asp pneumonia - on meropenem and zyvox per ID. Duoneb q 6 hrs prn 6. Hypotension - resolved. 7, HLD - cont home med. 8. DM II - cont SSI. 9. Anemia of chronic disease 10. Gout 11. H/o CVA 12. H/o PAD s/p AKA bilaterally. Pam Alcantar MD Aug 09, 2020 09:09
[2020-08-09 10:28] LABS: BASOPHILS % (AUTO) 0.6 % (0.0-2.0); EOSINOPHILS % (AUTO) 6.5 % (0.0-3.0); HEMOGLOBIN 10.1 G/DL (12.0-16.0); LYMPHOCYTES % (AUTO) 14.1 % (20.0-45.0); MEAN CORPUSCULAR VOLUME 95 FL (80-99); MONOCYTES % (AUTO) 6.6 % (1.0-10.0); NEUTROPHILS % (AUTO) 72.2 % (45.0-75.0); PLATELET COUNT 192 K/UL (150-450); RED BLOOD COUNT 3.35 M/UL (4.20-5.40); RED CELL DISTRIBUTION WIDTH 16.6 % (11.6-14.8); WHITE BLOOD COUNT 9.2 K/UL (4.8-10.8)
[2020-08-09 10:48] LABS: CALCIUM 8.9 MG/DL (8.5-10.1); CREATININE 5.1 MG/DL (0.55-1.30)
--- NOTE | 2020-08-09 11:07 | General Progress Note ---
Subjective ROS Limited/Unobtainable: No Allergies: Coded Allergies: GABAPENTIN (Unverified Allergy, Unknown, 06/14/19) Objective Last 24 Hour Vital Signs Date Time Temp Pulse Resp B/P (MAP) Pulse Ox O2 Delivery O2 Flow Rate FiO2 08/09/20 09:00 Nasal Cannula 2.0 08/09/20 08:00 68 08/09/20 08:00 98.0 75 20 128/68 (88) 98 08/09/20 04:00 72 08/09/20 04:00 97.9 72 20 123/48 (73) 97 08/09/20 00:00 72 08/09/20 00:00 99.5 72 23 127/45 (72) 97 08/08/20 21:00 Nasal Cannula 2.0 08/08/20 20:00 99.1 76 20 124/43 (70) 100 08/08/20 20:00 77 08/08/20 19:40 69 18 98 Nasal Cannula 2.0 28 08/08/20 19:40 98 Nasal Cannula 2.0 28 08/08/20 16:00 69 08/08/20 16:00 98.3 49 18 96/80 (85) 99 08/08/20 12:00 59 08/08/20 12:00 97.5 59 18 117/40 (65) 98 Intake and Output 08/08/20 08/09/20 19:00 07:00 Intake Total 40 ml Output Total 0 ml Balance 0 ml 40 ml Tube Feeding 40 ml Output Hemodialysis UF 0 ml # Bowel Movements 2 1 Laboratory Tests 08/08/20 13:19: POC Whole Blood Glucose 72L 08/08/20 17:47: POC Whole Blood Glucose 63L 08/09/20 00:57: POC Whole Blood Glucose 99 08/09/20 06:12: POC Whole Blood Glucose 94 08/09/20 09:30: White Blood Count 9.2, Red Blood Count 3.35L, Hemoglobin 10.1L, Hematocrit 32.0L , Mean Corpuscular Volume 95, Mean Corpuscular Hemoglobin 30.1, Mean Corpuscular Hemoglobin Concent 31.5L, Red Cell Distribution Width 16.6H, Platelet Count 192, Mean Platelet Volume 6.1L, Neutrophils (%) (Auto) 72.2, Lymphocytes (%) (Auto) 14.1L, Monocytes (%) (Auto) 6.6, Eosinophils (%) (Auto) 6.5H, Basophils (%) (Auto) 0.6, Sodium Level 129L, Potassium Level 4.0, Chloride Level 91L, Carbon Dioxide Level 26, Anion Gap 12, Blood Urea Nitrogen 37H, Creatinine 5.1H, Estimat Glomerular Filtration Rate 9.8, Glucose Level 146H, Calcium Level 8.9 Height (Feet): 4 Height (Inches): 9.00 Weight (Pounds): 136 General Appearance: no apparent distress EENT: normal ENT inspection Neck: supple Cardiovascular: normal rate Respiratory/Chest: decreased breath sounds Abdomen: normal bowel sounds, non tender, soft Extremities: non-tender Assessment/Plan Problem List: (1) Aspiration pneumonia ICD Codes: J69.0 - Pneumonitis due to inhalation of food and vomit SNOMED: 733169878 (2) Malfunctioning jejunostomy tube ICD Codes: K94.13 - Enterostomy malfunction SNOMED: 261645771, 277736065 (3) Anemia due to chronic kidney disease ICD Codes: N18.9 - Chronic kidney disease, unspecified; D63.1 - Anemia in chronic kidney disease SNOMED: 445516848 (4) ESRD (end stage renal disease) on dialysis ICD Codes: N18.6 - End stage renal disease; Z99.2 - Dependence on renal dialysis SNOMED: 823839343 (5) DM (diabetes mellitus) ICD Codes: E11.9 - Type 2 diabetes mellitus without complications SNOMED: 12540702 (6) HTN (hypertension) ICD Codes: I10 - Essential (primary) hypertension SNOMED: 23440255 Status: stable Assessment/Plan: s/p JT placement TF fu labs dc planning per primary team Ezequiel Perales MD Aug 09, 2020 11:07
--- NOTE | 2020-08-09 11:28 | Consultation ---
History of Present Illness General Date patient seen: Aug 09, 2020 Reason for Hospitalization: Malfunctioning Gastric Tube Present Illness HPI This is a 85-year-old female well-known to me who I have cared for in the past that presents [facility] with fevers and malfunctioning gastric tube and a septic leukocytosis abnormal labs with very poor peripheral access hemodialysis patient bilateral lower extremity AKA that recently required venous access for medications and care plan at which time yesterday I placed a central venous catheter. Today patient identified to have one portacatheter not functioning furthermore is noted to have decubitus ulcers on admission abnormal labs and surgery was called to evaluate assist with the care of this patient. Patient seen, patient [place], chart reviewed. I spoke with patient's son in detail regarding care plan Allergies: Coded Allergies: GABAPENTIN (Unverified Allergy, Unknown, 06/14/19) COVID-19 Screening Contact w/high risk pt: No Recent Travel to affected area: No Experienced COVID-19 symptoms?: No Medication History Scheduled Amino Acids/Protein Hydrolys (Pro-Stat Liquid), 30 ML JT TWICE A DAY, (Reported) Ascorbic Acid* (Vitamin C*), 250 MG JT DAILY, (Reported) Aspirin* (Aspirin*), 81 MG JT DAILY, (Reported) Brimonidine Tartrate (Alphagan P), 1 DROP BOTH EYES BID, (Reported) Ferrous Sulfate (Ferrous Sulfate), 220 MG JT DAILY, (Reported) Folic Acid* (Folic Acid*), 1 MG JT DAILY, (Reported) Insulin Lispro (Humalog), 0 SUBQ QAM AND QHS, (Reported) Lactobacillus Acidophilus (Acidophilus Probiotic), 0.5 MG JT DAILY, (Reported) Nut.tx.impaired Renal Fxn,Soy (Novasource Renal 2 Del), ML JT DAILY, (Reported) Polyethylene Glycol 3350* (Miralax*), 17 GM JT DAILY, (Reported) Pravastatin Sod* (Pravastatin Sod*), 20 MG JT BEDTIME, (Reported) Timolol Maleate (Timolol Maleate), 1 DROP BOTH EYES BID, (Reported) Vitamin B Cmplx/Vit C/Folic AC (Nephro-Xavier Tablet), 1 TAB JT DAILY, (Reported) Scheduled PRN Sennosides (Senna), 17.2 MG JT DAILY PRN for CONSTIPATION, (Reported) Discontinued Medications Hydralazine HCl (Hydralazine HCl), 25 MG GT, (Reported) Discontinued Reason: Therapy completed Nutritional Supplement (Novasource Renal), 40 ML JT Q18H, (Reported) Discontinued Reason: Prescription changed Omeprazole (Omeprazole), 40 MG GT DAILY, (Reported) Discontinued Reason: Therapy completed Zinc Sulfate (Zinc Sulfate), 220 MG JT DAILY, (Reported) Discontinued Reason: Therapy completed Patient History Limited by: medical condition History Provided By: PMSancho Healthcare decision maker Resuscitation status Advanced Directive on File Past Medical/Surgical History Past Medical/Surgical History: (1) Cough with hemoptysis (2) GI bleed (3) Pancreatitis (4) G tube feedings (5) Septic shock (6) Electrolyte imbalance (7) UGI bleed (8) Fever (9) Mass of left lung (10) Hypotension (11) Decubitus skin ulcer (12) C. 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) (19) MRSA nasal colonization (20) Malfunctioning jejunostomy tube (21) Aspiration pneumonia (22) HTN (hypertension) (23) Secondary hyperparathyroidism of renal origin (24) Anemia (25) Hypotension (26) Sepsis (27) no IV acess (28) Liver mass, right lobe Review of Systems Review of Symptoms General ROS: no weight loss or fever Psychological ROS: no depression or mood changes, no memory loss Ophthalmic ROS: no visual changes or eye irritation ENT ROS: no nasal congestion, hearing loss, dizziness Allergy and Immunology ROS: no allergic symptoms or urticaria Hematological and Lymphatic ROS: no swollen glands, unusual bleeding or bruising Endocrine ROS: no polyuria, polydipsia, weight changes, temperature intolerance Respiratory ROS: no cough, shortness of breath, or wheezing Cardiovascular ROS: no chest pain or dyspnea on exertion Gastrointestinal ROS: denies abdominal pain, bright red blood in stool. Musculoskeletal ROS: no myalgias or arthralgias Neurological ROS: no TIA or stroke symptoms Dermatological ROS: no new or changing skin lesions, rashes or pruritis limited Physical Exam Physical Exam General appearance: alert, cooperative, no distress, appears stated age Head: Normocephalic, without obvious abnormality, atraumatic Eyes: conjunctivae/corneas clear. PERRL, EOM's intact. Fundi benign Throat: Lips, mucosa, and tongue normal. Teeth and gums normal Neck: supple, symmetrical, trachea midline, no adenopathy, thyroid: not enlarged, symmetric, no tenderness/mass/nodules, no carotid bruit and no JVD Lungs: clear to auscultation bilaterally Heart: regular rate and rhythm, S1, S2 normal, no murmur, click, rub or gallop Abdomen: soft, non-tender. Bowel sounds normal. No masses, no organomegaly peg Extremities: extremities b/l aka Pulses: decreased Skin: Skin see below Neurologic: Grossly normal Last 24 Hour Vital Signs Date Time Temp Pulse Resp B/P (MAP) Pulse Ox O2 Delivery O2 Flow Rate FiO2 08/09/20 09:00 Nasal Cannula 2.0 08/09/20 08:00 68 08/09/20 08:00 98.0 75 20 128/68 (88) 98 08/09/20 04:00 72 08/09/20 04:00 97.9 72 20 123/48 (73) 97 08/09/20 00:00 72 08/09/20 00:00 99.5 72 23 127/45 (72) 97 08/08/20 21:00 Nasal Cannula 2.0 08/08/20 20:00 99.1 76 20 124/43 (70) 100 08/08/20 20:00 77 08/08/20 19:40 69 18 98 Nasal Cannula 2.0 28 08/08/20 19:40 98 Nasal Cannula 2.0 28 08/08/20 16:00 69 08/08/20 16:00 98.3 49 18 96/80 (85) 99 08/08/20 12:00 59 08/08/20 12:00 97.5 59 18 117/40 (65) 98 Intake and Output 08/08/20 08/09/20 19:00 07:00 Intake Total 40 ml Output Total 0 ml Balance 0 ml 40 ml Tube Feeding 40 ml Output Hemodialysis UF 0 ml # Bowel Movements 2 1 Laboratory Tests Test 08/08/20 13:19 08/08/20 17:47 08/09/20 00:57 08/09/20 06:12 POC Whole Blood Glucose 72 MG/DL (74-106) L 63 MG/DL (74-106) L 99 MG/DL (74-106) 94 MG/DL (74-106) Test 08/09/20 09:30 White Blood Count 9.2 K/UL (4.8-10.8) Red Blood Count 3.35 M/UL (4.20-5.40) L Hemoglobin 10.1 G/DL (12.0-16.0) L Hematocrit 32.0 % (37.0-47.0) L Mean Corpuscular Volume 95 FL (80-99) Mean Corpuscular Hemoglobin 30.1 PG (27.0-31.0) Mean Corpuscular Hemoglobin Concent 31.5 G/DL (32.0-36.0) L Red Cell Distribution Width 16.6 % (11.6-14.8) H Platelet Count 192 K/UL (150-450) Mean Platelet Volume 6.1 FL (6.5-10.1) L Neutrophils (%) (Auto) 72.2 % (45.0-75.0) Lymphocytes (%) (Auto) 14.1 % (20.0-45.0) L Monocytes (%) (Auto) 6.6 % (1.0-10.0) Eosinophils (%) (Auto) 6.5 % (0.0-3.0) H Basophils (%) (Auto) 0.6 % (0.0-2.0) Sodium Level 129 MMOL/L (136-145) L Potassium Level 4.0 MMOL/L (3.5-5.1) Chloride Level 91 MMOL/L (98-107) L Carbon Dioxide Level 26 MMOL/L (21-32) Anion Gap 12 mmol/L (5-15) Blood Urea Nitrogen 37 mg/dL (7-18) H Creatinine 5.1 MG/DL (0.55-1.30) H Estimat Glomerular Filtration Rate 9.8 mL/min (>60) Glucose Level 146 MG/DL (74-106) H Calcium Level 8.9 MG/DL (8.5-10.1) Height (Feet): 4 Height (Inches): 9.00 Weight (Pounds): 136 Medications Current Medications Medications (Trade) Dose Ordered Sig/Selene Route PRN Reason Start Time Stop Time Status Last Admin Dose Admin Acetaminophen (Tylenol) 650 mg Q6H PRN ORAL For fever 08/07/20 08:15 09/06/20 08:14 08/07/20 17:08 Albuterol/ Ipratropium (Albuterol/ Ipratropium) 3 ml Q6H PRN HHN Shortness of Breath 08/05/20 12:00 08/10/20 11:59 08/07/20 14:36 Aspirin (ASA) 81 mg DAILY NG 08/06/20 09:00 09/17/20 08:59 08/09/20 08:35 Barium Sulfate (Readi-Cat 2) 450 ml NOW PRN ORAL Radiology Procedure 08/07/20 12:00 08/09/20 11:59 08/08/20 08:20 Chlorhexidine Gluconate (Ivory-Hex 2%) 1 applic DAILY@2000 TOPIC 08/09/20 20:00 11/07/20 19:59 Dextrose (Dextrose 50%) 25 ml Q30M PRN IV Hypoglycemia 08/05/20 11:30 11/01/20 02:59 Dextrose (Dextrose 50%) 50 ml Q30M PRN IV Hypoglycemia 08/05/20 11:30 11/01/20 02:59 08/06/20 18:01 Epoetin Alli (Epoetin Alli(ESRD on dialysis)) 4,000 unit WED-WED-WED SUBQ 08/07/20 21:00 11/05/20 20:59 08/07/20 20:14 Folic Acid (Folate) 1 mg DAILY NG 08/06/20 09:00 09/02/20 08:59 08/09/20 08:35 Iohexol (OMNIPAQUE-300 100ml) 100 ml NOW PRN INJ Radiology Procedure 08/07/20 12:00 08/09/20 11:59 Linezolid 300 ml @ 300 mls/hr Q12HR IVPB 08/07/20 13:00 08/14/20 12:59 08/09/20 08:36 Meropenem 500 mg/ Sodium Chloride 55 ml @ 110 mls/hr Q24H IVPB 08/07/20 13:00 08/12/20 12:59 08/08/20 13:23 Midodrine (Pro-Amatine) 10 mg THREE TIMES A DAY ORAL 08/06/20 21:30 11/04/20 21:29 08/09/20 08:35 Polyethylene Glycol (Miralax) 17 gm DAILY NG 08/06/20 09:00 09/02/20 08:59 Pravastatin Sodium (Pravachol) 20 mg BEDTIME NG 08/05/20 21:00 09/02/20 20:59 08/08/20 21:45 Sennosides (Senokot) 17.2 mg Q24H PRN NG CONSTIPATION 08/05/20 11:30 09/01/20 11:29 Timolol Maleate (timoloL maleate 0.5% Op Soln) 1 drop BID BOTH EYES 08/05/20 18:00 09/02/20 08:59 08/09/20 08:36 Vitamin B Complex/ Vit C/Folic Acid (Nephrovite) 1 tab DAILY NG 08/06/20 09:00 09/02/20 08:59 08/09/20 08:36 Assessment/Plan Problem List: (1) DM (diabetes mellitus) ICD Codes: E11.9 - Type 2 diabetes mellitus without complications SNOMED: 95506564 (2) ESRD (end stage renal disease) on dialysis ICD Codes: N18.6 - End stage renal disease; Z99.2 - Dependence on renal dialysis SNOMED: 881987759 (3) Anemia due to chronic kidney disease ICD Codes: N18.9 - Chronic kidney disease, unspecified; D63.1 - Anemia in chronic kidney disease SNOMED: 023558160 (4) Colonization with VRE (vancomycin-resistant enterococcus) ICD Codes: Z22.338 - Carrier of other streptococcus SNOMED: 057220452 (5) MRSA nasal colonization ICD Codes: Z22.322 - Carrier or suspected carrier of Methicillin resistant Staphylococcus aureus SNOMED: 732598067, 545723691 (6) Malfunctioning jejunostomy tube Assessment & Plan: replaced by gi ICD Codes: K94.13 - Enterostomy malfunction SNOMED: 649323435, 700285448 (7) Aspiration pneumonia ICD Codes: J69.0 - Pneumonitis due to inhalation of food and vomit SNOMED: 160763836 (8) HTN (hypertension) ICD Codes: I10 - Essential (primary) hypertension SNOMED: 85446155 (9) Secondary hyperparathyroidism of renal origin ICD Codes: N25.81 - Secondary hyperparathyroidism of renal origin SNOMED: 37497832 (10) Anemia ICD Codes: D64.9 - Anemia, unspecified SNOMED: 572501922 (11) Hypotension ICD Codes: I95.9 - Hypotension, unspecified SNOMED: 03384045 (12) Sepsis ICD Codes: A41.9 - Sepsis, unspecified organism SNOMED: 74582804 (13) Liver mass, right lobe Assessment & Plan: There is a nonspecific hypodense lesion in the right lobe of the liver measuring approximately 2.2 x 1.9 cm. The spleen is homogeneous. There are multiple gallstones. The pancreas is unremarkable. Adrenals are normal in morphology. [place] kidneys are atrophic with extensive renal vascular calcifications. Multiple small cysts noted. There is a GJ tube in place. Small bowel loops are nondistended. The colon is also nondistended with average amount of stool. The appendix is not visualized. There is no free fluid or free air. No pathologic adenopathy demonstrated. Urinary bladder is empty. There is an IVC filter in place. Degenerative changes of the spine noted. There is a small fatty umbilical hernia. IMPRESSION: GJ TUBE IN PLACE. NO EVIDENCE OF FLUID COLLECTION OR ABSCESS. POSTOPERATIVE CHANGES IN THE LUNG BASES WITH PLEURAL THICKENING AND PLEURAL CALCIFICATION. NONSPECIFIC HYPODENSE LESION IN THE RIGHT LOBE OF THE LIVER. CONSIDER CORRELATION WITH TRIPLE PHASE CONTRAST EXAM. GALLSTONES. ATROPHIC [place] KIDNEYS WITH SMALL CYSTS. SMALL FATTY UMBILICAL HERNIA. IVC FILTER IN PLACE. known historically unchanged significantly. monitor for now given age, condition, and care plan ICD Codes: R16.0 - Hepatomegaly, not elsewhere classified SNOMED: 443028001 (14) Septic shock ICD Codes: A41.9 - Sepsis, unspecified organism; R65.21 - Severe sepsis with septic shock SNOMED: 30958448 (15) Fever ICD Codes: R50.9 - Fever, unspecified SNOMED: 413311383 (16) Decubitus skin ulcer Assessment & Plan: Pt presented on admission with Bilat AKA,Moisture Intertrigo L abd folds, and bilat groin, Scattered areas of Hyperpigmentation Sacrum,R and L Buttocks and Bilat Ischial tuberosities, Partial thickness Pressure Injury R Ischium. Partial Thickness Pressure Injury R Ischium. Base of Wound is moist and viable. Edges adhrent to base of wound (L)1.5cm x (W)1.3cm. surrounding hyperpigmentation. Pt noted to have small amt vaginal Bleeding. Primary nurse is aware. Tx.plan: Apply Phytoplex Antifungal cream to Bilat breasts and Abdominal folds Twice daily. Apply Moisture Barrier Paste to Buttocks and Bilat Ischail tuberosities. Cover Sacrum and R ischium with Optifoam drsgs. Change every 3 days and prn. Reposition at least every 2hours or as tolerated. Off-load heels with Pillow. DAILY ESTIMATED NEEDS: Needs based on ESRD/HD, wound; 53.7kg adj for BL AKA 25-35 kcals/kg 0415-2052 total kcals 1.25-1.8 g protein/kg 67-97 g total protein Fluid per MD on HD NUTRITION DIAGNOSIS: * Increased kcal/pro intake needs R/T renal dysfunction, wound healing as evidenced by ESRD dx, on HD, admitted w/partial thickness wound R ischium- pt is PEJ dep. CURRENT TF: Nepro @40ml/hr ENTERAL NUTRITION RECOMMENDATIONS: Nepro @ 40ml/hr x 24 hrs to provide 960ml, 1728kcal, 78g, 698ml free water * Maintain Nepro @40ml/hr to meet 100% est needs * HOB over 30 degrees/ water flush per MD. ADDITIONAL RECOMMENDATIONS: * Calibrated dry wt post HD * Wound healing: F/up w/ WC eval continue Nephrovite x1, add Brian 1pkt BID * Monitor lytes * Monitor tolerance to TF post new Jtube placement. (08/08) Held for CT abdomen today. ICD Codes: L89.90 - Pressure ulcer of unspecified site, unspecified stage SNOMED: 928375931 (17) Dementia ICD Codes: F03.90 - Unspecified dementia without behavioral disturbance SNOMED: 80648536 (18) Pancreatitis ICD Codes: K85.90 - Acute pancreatitis without necrosis or infection, unspecified SNOMED: 13598740 (19) Electrolyte imbalance ICD Codes: E87.8 - Other disorders of electrolyte and fluid balance, not elsewhere classified SNOMED: 141954496 (20) Hypotension ICD Codes: I95.9 - Hypotension, unspecified SNOMED: 78999162 (21) GI bleed ICD Codes: K92.2 - Gastrointestinal hemorrhage, unspecified SNOMED: 56079374 (22) UGI bleed ICD Codes: K92.2 - Gastrointestinal hemorrhage, unspecified SNOMED: 71977696 (23) Jejunostomy tube leak ICD Codes: K94.13 - Enterostomy malfunction SNOMED: 575353979 (24) C. difficile colitis ICD Codes: A04.72 - Enterocolitis due to Clostridium difficile, not specified as recurrent SNOMED: 528234507 (25) G tube feedings ICD Codes: Z93.1 - Gastrostomy status SNOMED: 478803471, 664037152, 235165259 (26) Cough with hemoptysis ICD Codes: R04.2 - Hemoptysis SNOMED: 07322920 (27) Mass of left lung ICD Codes: R91.8 - Other nonspecific abnormal finding of lung field SNOMED: 281177338 (28) no IV Willian Kaufman Aug 09, 2020 11:28
[2020-08-09 12:00] VITALS: BP 136/74
[2020-08-09] MEDS: Meropenem 500mg/NS 55ml IVPB SCH ×2 (12:54)
--- NOTE | 2020-08-09 13:52 | Nephrology Progress Note ---
Assessment/Plan Problem List: (1) ESRD (end stage renal disease) on dialysis (2) DM (diabetes mellitus) (3) HTN (hypertension) (4) Secondary hyperparathyroidism of renal origin (5) Malfunctioning jejunostomy tube (6) Aspiration pneumonia (7) Anemia Assessment: better (8) Hyponatremia Plan HD tomorrow follow labs abxs Continue Epogen Subjective Subjective In NAD Objective Objective Last 24 Hour Vital Signs Date Time Temp Pulse Resp B/P (MAP) Pulse Ox O2 Delivery O2 Flow Rate FiO2 08/09/20 09:00 Nasal Cannula 2.0 08/09/20 08:00 68 08/09/20 08:00 98.0 75 20 128/68 (88) 98 08/09/20 07:59 99 Nasal Cannula 2.0 28 08/09/20 07:58 66 18 99 Nasal Cannula 2.0 28 08/09/20 04:00 72 08/09/20 04:00 97.9 72 20 123/48 (73) 97 08/09/20 00:00 72 08/09/20 00:00 99.5 72 23 127/45 (72) 97 08/08/20 21:00 Nasal Cannula 2.0 08/08/20 20:00 99.1 76 20 124/43 (70) 100 08/08/20 20:00 77 08/08/20 19:40 69 18 98 Nasal Cannula 2.0 28 08/08/20 19:40 98 Nasal Cannula 2.0 28 08/08/20 16:00 69 08/08/20 16:00 98.3 49 18 96/80 (85) 99 Intake and Output 08/08/20 08/09/20 19:00 07:00 Intake Total 40 ml Output Total 0 ml Balance 0 ml 40 ml Tube Feeding 40 ml Output Hemodialysis UF 0 ml # Bowel Movements 2 1 Laboratory Tests 08/08/20 17:47: POC Whole Blood Glucose 63L 08/09/20 00:57: POC Whole Blood Glucose 99 08/09/20 06:12: POC Whole Blood Glucose 94 08/09/20 09:30: White Blood Count 9.2, Red Blood Count 3.35L, Hemoglobin 10.1L, Hematocrit 32.0L , Mean Corpuscular Volume 95, Mean Corpuscular Hemoglobin 30.1, Mean Corpuscular Hemoglobin Concent 31.5L, Red Cell Distribution Width 16.6H, Platelet Count 192, Mean Platelet Volume 6.1L, Neutrophils (%) (Auto) 72.2, Lymphocytes (%) (Auto) 14.1L, Monocytes (%) (Auto) 6.6, Eosinophils (%) (Auto) 6.5H, Basophils (%) (Auto) 0.6, Sodium Level 129L, Potassium Level 4.0, Chloride Level 91L, Carbon Dioxide Level 26, Anion Gap 12, Blood Urea Nitrogen 37H, Creatinine 5.1H, Est imat Glomerular Filtration Rate 9.8, Glucose Level 146H, Calcium Level 8.9 Height (Feet): 4 Height (Inches): 9.00 Weight (Pounds): 136 Cardiovascular: normal rate Respiratory/Chest: lungs clear Extremities: no edema Aftab Arnold MD Aug 09, 2020 13:52
--- NOTE | 2020-08-09 15:16 | Infectious Diseases Prog Note ---
Assessment/Plan Problems: (1) Sepsis Assessment & Plan: with fever and leukocytosis suspect aspiration pneumonia with no evidence of intraabdominal process to explain it on CT ABD/Pelvis with contrast, repeated blood culture x 2 is negative , continue meropenem and zyvox for 10 days total (2) Aspiration pneumonia Assessment & Plan: continue meropenem and zyvox for 10 days , repeated blood culture x 2 is negative , and sputum culture, aspiration precaution keep head of bed more than 30 all the time. repeat CXR for follow up (3) Colonization with VRE (vancomycin-resistant enterococcus) Assessment & Plan: keep patient in contact isolation (4) MRSA nasal colonization Assessment & Plan: keep patient in contact isolation (5) DM (diabetes mellitus) Assessment & Plan: recommend tight glycemic control to keep blood glucose between 80-120 (6) ESRD (end stage renal disease) on dialysis Assessment & Plan: continue hemodialysis as per renal service monitor daily weight (7) Malfunctioning jejunostomy tube Assessment & Plan: continue local site care with dressing and keep clean and dry to avoid infection pending placement of new tube on Wednesday, already on Zosyn treatment (8) Liver mass, right lobe Assessment & Plan: may need three phase CT liver to confirm Subjective ROS Limited/Unobtainable: Yes Allergies: Coded Allergies: GABAPENTIN (Unverified Allergy, Unknown, 06/14/19) she was lying in bed comfortable, awake and responsive to verbal command, no longer has fever and no chills , has mild cough but no shortness of breath, still congested and has secretions with yellow color , had loose bowel movements Objective Last 24 Hour Vital Signs Date Time Temp Pulse Resp B/P (MAP) Pulse Ox O2 Delivery O2 Flow Rate FiO2 08/09/20 14:00 66 08/09/20 12:00 98.1 80 20 136/74 (94) 98 08/09/20 09:00 Nasal Cannula 2.0 08/09/20 08:00 68 08/09/20 08:00 98.0 75 20 128/68 (88) 98 08/09/20 07:59 99 Nasal Cannula 2.0 28 08/09/20 07:58 66 18 99 Nasal Cannula 2.0 28 08/09/20 04:00 72 08/09/20 04:00 97.9 72 20 123/48 (73) 97 9/18/20 00:00 72 08/09/20 00:00 99.5 72 23 127/45 (72) 97 08/08/20 21:00 Nasal Cannula 2.0 08/08/20 20:00 99.1 76 20 124/43 (70) 100 08/08/20 20:00 77 08/08/20 19:40 69 18 98 Nasal Cannula 2.0 28 08/08/20 19:40 98 Nasal Cannula 2.0 28 08/08/20 16:00 69 08/08/20 16:00 98.3 49 18 96/80 (85) 99 Height (Feet): 4 Height (Inches): 9.00 Weight (Pounds): 136 General Appearance: WD/WN, no acute distress HEENT: normocephalic, atraumatic, anicteric, mucous membranes moist, PERRL Respiratory/Chest: chest wall non-tender, no respiratory distress, no accessory muscle use, decreased breath sounds, crackles/rales Cardiovascular: normal peripheral pulses, normal rate, regular rhythm, no gallop/murmur, no JVD Abdomen: normal bowel sounds, soft, non tender, no organomegaly, non distended, no mass, no scars Genitourinary: normal external genitalia Extremities: no cyanosis, no clubbing Skin: no rash, no lesions, ulcers Neurologic/Psychiatric: alert, responsive Lymphatic: no neck adenopathy, no groin adenopathy Musculoskeletal: normal muscle bulk, no effusion Microbiology Date/Time Source Procedure Growth Status 08/07/20 17:45 Stool Clostridium difficile Toxin Assay - Final Complete 08/07/20 12:20 Blood Blood Culture - Preliminary NO GROWTH AFTER 24 HOURS Resulted 08/07/20 12:10 Blood Blood Culture - Preliminary NO GROWTH AFTER 24 HOURS Resulted 08/06/20 20:00 Sputum Induced Gram Stain - Final Complete 08/06/20 20:00 Sputum Induced Sputum Culture - Final NORMAL UPPER RESPIRATORY BETHANIE PRESENT Complete Laboratory Tests Test 08/08/20 17:47 08/09/20 00:57 08/09/20 06:12 08/09/20 09:30 POC Whole Blood Glucose 63 MG/DL (74-106) L 99 MG/DL (74-106) 94 MG/DL (74-106) White Blood Count 9.2 K/UL (4.8-10.8) Red Blood Count 3.35 M/UL (4.20-5.40) L Hemoglobin 10.1 G/DL (12.0-16.0) L Hematocrit 32.0 % (37.0-47.0) L Mean Corpuscular Volume 95 FL (80-99) Mean Corpuscular Hemoglobin 30.1 PG (27.0-31.0) Mean Corpuscular Hemoglobin Concent 31.5 G/DL (32.0-36.0) L Red Cell Distribution Width 16.6 % (11.6-14.8) H Platelet Count 192 K/UL (150-450) Mean Platelet Volume 6.1 FL (6.5-10.1) L Neutrophils (%) (Auto) 72.2 % (45.0-75.0) Lymphocytes (%) (Auto) 14.1 % (20.0-45.0) L Monocytes (%) (Auto) 6.6 % (1.0-10.0) Eosinophils (%) (Auto) 6.5 % (0.0-3.0) H Basophils (%) (Auto) 0.6 % (0.0-2.0) Sodium Level 129 MMOL/L (136-145) L Potassium Level 4.0 MMOL/L (3.5-5.1) Chloride Level 91 MMOL/L (98-107) L Carbon Dioxide Level 26 MMOL/L (21-32) Anion Gap 12 mmol/L (5-15) Blood Urea Nitrogen 37 mg/dL (7-18) H Creatinine 5.1 MG/DL (0.55-1.30) H Estimat Glomerular Filtration Rate 9.8 mL/min (>60) Glucose Level 146 MG/DL (74-106) H Calcium Level 8.9 MG/DL (8.5-10.1) Current Medications Medications (Trade) Dose Ordered Sig/Selene Route PRN Reason Start Time Stop Time Status Last Admin Dose Admin Acetaminophen (Tylenol) 650 mg Q6H PRN ORAL For fever 08/07/20 08:15 09/06/20 08:14 08/07/20 17:08 Albuterol/ Ipratropium (Albuterol/ Ipratropium) 3 ml Q6H PRN HHN Shortness of Breath 08/05/20 12:00 08/10/20 11:59 08/07/20 14:36 Aspirin (ASA) 81 mg DAILY NG 08/06/20 09:00 09/17/20 08:59 08/09/20 08:35 Chlorhexidine Gluconate (Ivory-Hex 2%) 1 applic DAILY@2000 TOPIC 08/09/20 20:00 11/07/20 19:59 Dextrose (Dextrose 50%) 25 ml Q30M PRN IV Hypoglycemia 08/05/20 11:30 11/01/20 02:59 Dextrose (Dextrose 50%) 50 ml Q30M PRN IV Hypoglycemia 08/05/20 11:30 11/01/20 02:59 08/06/20 18:01 Epoetin Alli (Epoetin Alli(ESRD on dialysis)) 4,000 unit SUBQ 08/07/20 21:00 11/05/20 20:59 08/07/20 20:14 Folic Acid (Folate) 1 mg DAILY NG 08/06/20 09:00 09/02/20 08:59 08/09/20 08:35 Heparin Sodium (Porcine) (Heparin Sod 1000 units/ml 10ml) 500 unit ONCE PRN IV HD 08/10/20 06:00 08/10/20 23:59 Linezolid 300 ml @ 300 mls/hr Q12HR IVPB 08/07/20 13:00 08/14/20 12:59 08/09/20 08:36 Meropenem 500 mg/ Sodium Chloride 55 ml @ 110 mls/hr Q24H IVPB 08/07/20 13:00 08/12/20 12:59 08/09/20 12:54 Midodrine (Pro-Amatine) 10 mg THREE TIMES A DAY ORAL 08/06/20 21:30 11/04/20 21:29 08/09/20 12:54 Polyethylene Glycol (Miralax) 17 gm DAILY NG 08/06/20 09:00 09/02/20 08:59 Pravastatin Sodium (Pravachol) 20 mg BEDTIME NG 08/05/20 21:00 09/02/20 20:59 08/08/20 21:45 Sennosides (Senokot) 17.2 mg Q24H PRN NG CONSTIPATION 08/05/20 11:30 09/01/20 11:29 Sodium Chloride 1,000 ml @ 500 mls/hr Q2H PRN IVLG sbp<90 during hd 08/10/20 06:00 08/10/20 23:59 Timolol Maleate (timoloL maleate 0.5% Op Soln) 1 drop BID BOTH EYES 08/05/20 18:00 09/02/20 08:59 08/09/20 08:36 Vitamin B Complex/ Vit C/Folic Acid (Nephrovite) 1 tab DAILY NG 08/06/20 09:00 09/02/20 08:59 08/09/20 08:36 Morteza Castillo M.D. Aug 09, 2020 15:16
[2020-08-09 16:00] VITALS: BP 145/58
[2020-08-09 20:00] VITALS: BP 162/70
[2020-08-09] MEDS: Dyna-Hex 2% Top Sol 2oz TOPIC SCH (23:45)
[2020-08-09] MEDS: Epoetin Alfa-EPBX(ESRD on dialysis)4000 units/ml vial SUBQ SCH (23:45)
[2020-08-10] VITALS: BP 150/50
[2020-08-10 04:00] VITALS: BP 139/64
[2020-08-10] MEDS ORDERED: Heparin Sod 1000 units/ml 10ml IV PRN (06:00)
[2020-08-10 08:00] VITALS: BP 145/84
[2020-08-10] MEDS: Miralax 17gm pkt NG SCH (08:44)
[2020-08-10] MEDS: Aspirin Baby 81mg NG SCH (08:44)
[2020-08-10] MEDS: timoloL maleate 0.5% Op Soln 2.5ml BOTH EYES SCH ×2 (08:44→17:52)
[2020-08-10] MEDS: Nephrovite tab (Rena-Vite) NG SCH (08:44)
[2020-08-10] MEDS: Midodrine 10mg tab ORAL SCH ×3 (08:45→17:52)
[2020-08-10 09:22] LABS: BASOPHILS % (AUTO) 1.8 % (0.0-2.0); EOSINOPHILS % (AUTO) 6.7 % (0.0-3.0); HEMOGLOBIN 10.1 G/DL (12.0-16.0); LYMPHOCYTES % (AUTO) 18.5 % (20.0-45.0); MEAN CORPUSCULAR VOLUME 94 FL (80-99); MONOCYTES % (AUTO) 10.3 % (1.0-10.0); NEUTROPHILS % (AUTO) 62.7 % (45.0-75.0); PLATELET COUNT 193 K/UL (150-450); RED BLOOD COUNT 3.39 M/UL (4.20-5.40); RED CELL DISTRIBUTION WIDTH 16.5 % (11.6-14.8); WHITE BLOOD COUNT 7.3 K/UL (4.8-10.8)
[2020-08-10 09:40] LABS: ALBUMIN 2.7 G/DL (3.4-5.0); ALBUMIN/GLOBULIN RATIO 0.6 (1.0-2.7); BILIRUBIN,TOTAL 0.4 MG/DL (0.2-1.0); CALCIUM 8.5 MG/DL (8.5-10.1); CREATININE 6.4 MG/DL (0.55-1.30); POTASSIUM 3.5 MMOL/L (3.5-5.1)
--- NOTE | 2020-08-10 09:48 | General Progress Note ---
Subjective ROS Limited/Unobtainable: No Allergies: Coded Allergies: GABAPENTIN (Unverified Allergy, Unknown, 06/14/19) Objective Last 24 Hour Vital Signs Date Time Temp Pulse Resp B/P (MAP) Pulse Ox O2 Delivery O2 Flow Rate FiO2 08/10/20 08:35 98 Nasal Cannula 2.0 28 08/10/20 08:35 69 18 98 Nasal Cannula 2.0 28 08/10/20 08:00 97.5 93 20 145/84 (104) 95 08/10/20 04:00 97.5 69 20 139/64 (89) 94 08/10/20 04:00 68 08/10/20 00:00 98.9 66 22 150/50 (83) 95 08/10/20 00:00 71 08/09/20 21:00 Nasal Cannula 2.0 08/09/20 20:00 99.0 65 22 162/70 (100) 99 08/09/20 20:00 75 08/09/20 19:16 99 Nasal Cannula 2.0 28 08/09/20 19:16 70 18 99 Nasal Cannula 2.0 28 08/09/20 16:00 65 08/09/20 16:00 97.9 89 18 145/58 (87) 98 08/09/20 14:00 66 08/09/20 12:00 98.1 80 20 136/74 (94) 98 Intake and Output 08/09/20 08/10/20 19:00 07:00 Intake Total 80 ml 440 ml Balance 80 ml 440 ml Tube Feeding 80 ml 440 ml # Bowel Movements 2 1 Laboratory Tests 08/09/20 11:22: POC Whole Blood Glucose 86 08/09/20 17:32: POC Whole Blood Glucose 79 08/10/20 08:50: White Blood Count 7.3, Red Blood Count 3.39L, Hemoglobin 10.1L, Hematocrit 32.0L , Mean Corpuscular Volume 94, Mean Corpuscular Hemoglobin 29.8, Mean Corpuscular Hemoglobin Concent 31.5L, Red Cell Distribution Width 16.5H, Platelet Count 193, Mean Platelet Volume 6.5, Neutrophils (%) (Auto) 62.7, Lymphocytes (%) (Auto) 18.5L, Monocytes (%) (Auto) 10.3H, Eosinophils (%) (Auto) 6.7H, Basophils (%) (Auto) 1.8, Sodium Level 129L, Potassium Level 3.5, Chloride Level 92L, Carbon Dioxide Level 27, Anion Gap 10, Blood Urea Nitrogen 50H, Creatinine 6.4H, Estimat Glomerular Filtration Rate 7.5, Glucose Level 104, Calcium Level 8.5, Total Bilirubin 0.4, Aspartate Amino Transf (AST/SGOT) 37, Alanine Aminotransfe rase (ALT/SGPT) 35, Alkaline Phosphatase 191H, Total Protein 7.6, Albumin 2.7L, Globulin 4.9, Albumin/Globulin Ratio 0.6L Height (Feet): 4 Height (Inches): 9.00 Weight (Pounds): 136 General Appearance: no apparent distress EENT: normal ENT inspection Neck: supple Cardiovascular: normal rate Respiratory/Chest: decreased breath sounds Abdomen: normal bowel sounds, non tender, soft Extremities: non-tender Assessment/Plan Problem List: (1) Aspiration pneumonia ICD Codes: J69.0 - Pneumonitis due to inhalation of food and vomit SNOMED: 999907627 (2) Malfunctioning jejunostomy tube ICD Codes: K94.13 - Enterostomy malfunction SNOMED: 889240806, 645666566 (3) Anemia due to chronic kidney disease ICD Codes: N18.9 - Chronic kidney disease, unspecified; D63.1 - Anemia in chronic kidney disease SNOMED: 397568563 (4) ESRD (end stage renal disease) on dialysis ICD Codes: N18.6 - End stage renal disease; Z99.2 - Dependence on renal dialysis SNOMED: 828502963 (5) DM (diabetes mellitus) ICD Codes: E11.9 - Type 2 diabetes mellitus without complications SNOMED: 62704910 (6) HTN (hypertension) ICD Codes: I10 - Essential (primary) hypertension SNOMED: 96664898 Status: stable Assessment/Plan: s/p JT placement TF fu labs dc planning per primary team Ezequiel Perales MD Aug 10, 2020 09:47
[2020-08-10] MEDS ORDERED: HIBICLENS118 ML TOPIC (10:58)
[2020-08-10] MEDS ORDERED: RETACRIT3000 UNIT/ SUBQ (10:58)
[2020-08-10] MEDS ORDERED: PRO-AMATINE10 MG ORAL (10:58)
[2020-08-10] MEDS ORDERED: MERREM MONIT1 EA IV (11:27)
[2020-08-10] MEDS ORDERED: LINEZOLID600 MG/300 IV (11:29)
[2020-08-10] MEDS ORDERED: LINEZOLID600 MG/300 IVPB (11:37)
[2020-08-10] MEDS ORDERED: MEROPENEM500 MG IVPB (11:38)
--- NOTE | 2020-08-10 11:53 | General Progress Note ---
Subjective Date patient seen: Aug 10, 2020 Time patient seen: 10:30 Constitutional: Reports: no symptoms HEENT: Reports: no symptoms Cardiovascular: Reports: no symptoms Respiratory: Reports: no symptoms Gastrointestinal/Abdominal: Reports: no symptoms Genitourinary: Reports: no symptoms Allergies: Coded Allergies: GABAPENTIN (Unverified Allergy, Unknown, 06/14/19) Subjective Patient is afebrile and doing better. She will go back to [facility] rehab today after HD. No sob or coughing. No nausea or vomiting. Objective Last 24 Hour Vital Signs Date Time Temp Pulse Resp B/P (MAP) Pulse Ox O2 Delivery O2 Flow Rate FiO2 08/10/20 09:00 Nasal Cannula 2.0 08/10/20 08:35 98 Nasal Cannula 2.0 28 08/10/20 08:35 69 18 98 Nasal Cannula 2.0 28 08/10/20 08:00 97.5 93 20 145/84 (104) 95 08/10/20 07:37 73 08/10/20 04:00 97.5 69 20 139/64 (89) 94 08/10/20 04:00 68 08/10/20 00:00 98.9 66 22 150/50 (83) 95 08/10/20 00:00 71 08/09/20 21:00 Nasal Cannula 2.0 08/09/20 20:00 99.0 65 22 162/70 (100) 99 08/09/20 20:00 75 08/09/20 19:16 99 Nasal Cannula 2.0 28 08/09/20 19:16 70 18 99 Nasal Cannula 2.0 28 08/09/20 16:00 65 08/09/20 16:00 97.9 89 18 145/58 (87) 98 08/09/20 14:00 66 08/09/20 12:00 98.1 80 20 136/74 (94) 98 Intake and Output 08/09/20 08/10/20 19:00 07:00 Intake Total 80 ml 440 ml Balance 80 ml 440 ml Tube Feeding 80 ml 440 ml # Bowel Movements 2 1 Laboratory Tests 08/09/20 17:32: POC Whole Blood Glucose 79 08/10/20 08:50: White Blood Count 7.3, Red Blood Count 3.39L, Hemoglobin 10.1L, Hematocrit 32.0L , Mean Corpuscular Volume 94, Mean Corpuscular Hemoglobin 29.8, Mean Corpuscular Hemoglobin Concent 31.5L, Red Cell Distribution Width 16.5H, Platelet Count 193, Mean Platelet Volume 6.5, Neutrophils (%) (Auto) 62.7, Lymphocytes (%) (Auto) 18.5L, Monocytes (%) (Auto) 10.3H, Eosinophils (%) (Auto) 6.7H, Basophils (%) (Auto) 1.8, Sodium Level 129L, Potassium Level 3.5, Chloride Level 92L, Carbon Dioxide Level 27, Anion Gap 10, Blood Urea Nitrogen 50H, Creatinine 6.4H, Estimat Glomerular Filtration Rate 7.5, Glucose Level 104, Calcium Level 8.5, Total Bilirubin 0.4, Aspartate Amino Transf (AST/SGOT) 37, Alanine Aminotransferase (ALT/SGPT) 35, Alkaline Phosphatase 191H, Total Protein 7.6, Albumin 2.7L, Globulin 4.9, Albumin/Globulin Ratio 0.6L Height (Feet): 4 Height (Inches): 9.00 Weight (Pounds): 136 General Appearance: no apparent distress, alert EENT: normal ENT inspection Neck: non-tender, supple Cardiovascular: normal rate, regular rhythm Respiratory/Chest: chest wall non-tender, lungs clear, normal breath sounds Abdomen: non tender, soft Edema: no edema noted Arm (L), no edema noted Arm (R) Neurologic: alert, responsive Skin: warm/dry Assessment/Plan Status: stable Assessment/Plan: 1. fever - CT of abd negative for abscess. on meropenem and zyvox x 6 more days at CVT per ID. will D/C to [facility] today after HD. 2. dislodged J tube - Replacement for disloged J tube done by GI. 3. ESRD - Renal following for HD. 4. Elevated Troponin 2nd ESRD - resolved. 5. Possible Asp pneumonia - on meropenem and zyvox x 6 more days. 6. Hypotension - resolved. 7, HLD - cont home med. 8. DM II - cont SSI. 9. Anemia of chronic disease 10. Gout 11. H/o CVA 12. H/o PAD s/p AKA bilaterally. Pam Alcantar MD Aug 10, 2020 11:53
[2020-08-10 12:00] VITALS: BP 142/77
[2020-08-10] MEDS: Meropenem 500mg/NS 55ml IVPB SCH ×2 (12:43)
--- NOTE | 2020-08-10 13:55 | Nephrology Progress Note ---
Assessment/Plan Problem List: (1) ESRD (end stage renal disease) on dialysis (2) DM (diabetes mellitus) (3) HTN (hypertension) (4) Secondary hyperparathyroidism of renal origin (5) Malfunctioning jejunostomy tube (6) Aspiration pneumonia (7) Anemia Assessment: better (8) Hyponatremia Plan HD today Discussed with RN DC today Subjective Subjective In NAD Objective Objective Last 24 Hour Vital Signs Date Time Temp Pulse Resp B/P (MAP) Pulse Ox O2 Delivery O2 Flow Rate FiO2 08/10/20 12:00 97.7 68 18 142/77 (98) 100 08/10/20 09:00 Nasal Cannula 2.0 08/10/20 08:35 98 Nasal Cannula 2.0 28 08/10/20 08:35 69 18 98 Nasal Cannula 2.0 28 08/10/20 08:00 97.5 93 20 145/84 (104) 95 08/10/20 07:37 73 08/10/20 04:00 97.5 69 20 139/64 (89) 94 08/10/20 04:00 68 08/10/20 00:00 98.9 66 22 150/50 (83) 95 08/10/20 00:00 71 08/09/20 21:00 Nasal Cannula 2.0 08/09/20 20:00 99.0 65 22 162/70 (100) 99 08/09/20 20:00 75 08/09/20 19:16 99 Nasal Cannula 2.0 28 08/09/20 19:16 70 18 99 Nasal Cannula 2.0 28 08/09/20 16:00 65 08/09/20 16:00 97.9 89 18 145/58 (87) 98 08/09/20 14:00 66 Intake and Output 08/09/20 08/10/20 19:00 07:00 Intake Total 80 ml 440 ml Balance 80 ml 440 ml Tube Feeding 80 ml 440 ml # Bowel Movements 2 1 Laboratory Tests 08/09/20 17:32: POC Whole Blood Glucose 79 08/10/20 08:50: White Blood Count 7.3, Red Blood Count 3.39L, Hemoglobin 10.1L, Hematocrit 32.0L , Mean Corpuscular Volume 94, Mean Corpuscular Hemoglobin 29.8, Mean Corpuscular Hemoglobin Concent 31.5L, Red Cell Distribution Width 16.5H, Platelet Count 193, Mean Platelet Volume 6.5, Neutrophils (%) (Auto) 62.7, Lymphocytes (%) (Auto) 18.5L, Monocytes (%) (Auto) 10.3H, Eosinophils (%) (Auto) 6.7H, Basophils (%) (Auto) 1.8, Sodium Level 129L, Potassium Level 3.5, Chloride Level 92L, Carbon Dioxide Level 27, Anion Gap 10, Blood Urea Nitrogen 50H, Creatinine 6.4H, Estimat Glomerular Filtration Rate 7.5, Glucose Level 104, Calcium Level 8.5, Total Bilirubin 0.4, Aspartate Amino Transf (AST/SGOT) 37, Alanine Aminotransferase (ALT/SGPT) 35, Alkaline Phosphatase 191H, Total Protein 7.6, Albumin 2.7L, Globulin 4.9, Albumin/Globulin Ratio 0.6L Height (Feet): 4 Height (Inches): 9.00 Weight (Pounds): 136 Cardiovascular: normal rate Respiratory/Chest: lungs clear Aftab Arnold MD Aug 10, 2020 13:55
--- NOTE | 2020-08-10 15:07 | Surgery Progress Note ---
Surgery Progress Note Subjective Procedure Performed Right femoral central venous catheter insertion Additional Comments no acute events Objective Last 24 Hour Vital Signs Date Time Temp Pulse Resp B/P (MAP) Pulse Ox O2 Delivery O2 Flow Rate FiO2 08/10/20 12:00 97.7 68 18 142/77 (98) 100 08/10/20 11:31 68 08/10/20 09:00 Nasal Cannula 2.0 08/10/20 08:35 98 Nasal Cannula 2.0 28 08/10/20 08:35 69 18 98 Nasal Cannula 2.0 28 08/10/20 08:00 97.5 93 20 145/84 (104) 95 08/10/20 07:37 73 08/10/20 04:00 97.5 69 20 139/64 (89) 94 08/10/20 04:00 68 08/10/20 00:00 98.9 66 22 150/50 (83) 95 08/10/20 00:00 71 08/09/20 21:00 Nasal Cannula 2.0 08/09/20 20:00 99.0 65 22 162/70 (100) 99 08/09/20 20:00 75 08/09/20 19:16 99 Nasal Cannula 2.0 28 08/09/20 19:16 70 18 99 Nasal Cannula 2.0 28 08/09/20 16:00 65 08/09/20 16:00 97.9 89 18 145/58 (87) 98 I&O Intake and Output 08/09/20 08/10/20 19:00 07:00 Intake Total 80 ml 440 ml Balance 80 ml 440 ml Tube Feeding 80 ml 440 ml # Bowel Movements 2 1 Dressing: other Wound: other Cardiovascular: RSR Respiratory: decreased breath sounds Abdomen: soft, non-tender, present bowel sounds Extremities: no cyanosis Laboratory Tests Test 08/09/20 17:32 08/10/20 08:50 POC Whole Blood Glucose 79 MG/DL (74-106) White Blood Count 7.3 K/UL (4.8-10.8) Red Blood Count 3.39 M/UL (4.20-5.40) L Hemoglobin 10.1 G/DL (12.0-16.0) L Hematocrit 32.0 % (37.0-47.0) L Mean Corpuscular Volume 94 FL (80-99) Mean Corpuscular Hemoglobin 29.8 PG (27.0-31.0) Mean Corpuscular Hemoglobin Concent 31.5 G/DL (32.0-36.0) L Red Cell Distribution Width 16.5 % (11.6-14.8) H Platelet Count 193 K/UL (150-450) Mean Platelet Volume 6.5 FL (6.5-10.1) Neutrophils (%) (Auto) 62.7 % (45.0-75.0) Lymphocytes (%) (Auto) 18.5 % (20.0-45.0) L Monocytes (%) (Auto) 10.3 % (1.0-10.0) H Eosinophils (%) (Auto) 6.7 % (0.0-3.0) H Basophils (%) (Auto) 1.8 % (0.0-2.0) Sodium Level 129 MMOL/L (136-145) L Potassium Level 3.5 MMOL/L (3.5-5.1) Chloride Level 92 MMOL/L (98-107) L Carbon Dioxide Level 27 MMOL/L (21-32) Anion Gap 10 mmol/L (5-15) Blood Urea Nitrogen 50 mg/dL (7-18) H Creatinine 6.4 MG/DL (0.55-1.30) H Estimat Glomerular Filtration Rate 7.5 mL/min (>60) Glucose Level 104 MG/DL (74-106) Calcium Level 8.5 MG/DL (8.5-10.1) Total Bilirubin 0.4 MG/DL (0.2-1.0) Aspartate Amino Transf (AST/SGOT) 37 U/L (15-37) Alanine Aminotransferase (ALT/SGPT) 35 U/L (12-78) Alkaline Phosphatase 191 U/L (46-116) H Total Protein 7.6 G/DL (6.4-8.2) Albumin 2.7 G/DL (3.4-5.0) L Globulin 4.9 g/dL Albumin/Globulin Ratio 0.6 (1.0-2.7) L Plan Problems: (1) DM (diabetes mellitus) (2) ESRD (end stage renal disease) on dialysis (3) Anemia due to chronic kidney disease (4) Colonization with VRE (vancomycin-resistant enterococcus) (5) MRSA nasal colonization (6) Malfunctioning jejunostomy tube Assessment & Plan: replaced by gi (7) Aspiration pneumonia (8) HTN (hypertension) (9) Secondary hyperparathyroidism of renal origin (10) Anemia (11) Hypotension (12) Sepsis (13) Liver mass, right lobe Assessment & Plan: There is a nonspecific hypodense lesion in the right lobe of the liver measuring approximately 2.2 x 1.9 cm. The spleen is homogeneous. There are multiple gallstones. The pancreas is unremarkable. Adrenals are normal in morphology. [place] kidneys are atrophic with extensive renal vascular calcifications. Multiple small cysts noted. There is a GJ tube in place. Small bowel loops are nondistended. The colon is also nondistended with average amount of stool. The appendix is not visualized. There is no free fluid or free air. No pathologic adenopathy demonstrated. Urinary bladder is empty. There is an IVC filter in place. Degenerative changes of the spine noted. There is a small fatty umbilical hernia. IMPRESSION: GJ TUBE IN PLACE. NO EVIDENCE OF FLUID COLLECTION OR ABSCESS. POSTOPERATIVE CHANGES IN THE LUNG BASES WITH PLEURAL THICKENING AND PLEURAL CALCIFICATION. NONSPECIFIC HYPODENSE LESION IN THE RIGHT LOBE OF THE LIVER. CONSIDER CORRELATION WITH TRIPLE PHASE CONTRAST EXAM. GALLSTONES. ATROPHIC TAKOTNA KIDNEYS WITH SMALL CYSTS. SMALL FATTY UMBILICAL HERNIA. IVC FILTER IN PLACE. known historically unchanged significantly. monitor for now given age, condition, and care plan (14) Septic shock (15) Fever (16) Decubitus skin ulcer Assessment & Plan: Pt presented on admission with Bilat AKA,Moisture Intertrigo L abd folds, and bilat groin, Scattered areas of Hyperpigmentation Sacrum,R and L Buttocks and Bilat Ischial tuberosities, Partial thickness Pressure Injury R Ischium. Partial Thickness Pressure Injury R Ischium. Base of Wound is moist and viable. Edges adhrent to base of wound (L)1.5cm x (W)1.3cm. surrounding hyperpigmentation. Pt noted to have small amt vaginal Bleeding. Primary nurse is aware. Tx.plan: Apply Phytoplex Antifungal cream to Bilat breasts and Abdominal folds Twice daily. Apply Moisture Barrier Paste to Buttocks and Bilat Ischail tuberosities. Cover Sacrum and R ischium with Optifoam drsgs. Change every 3 days and prn. Reposition at least every 2hours or as tolerated. Off-load heels with Pillow. DAILY ESTIMATED NEEDS: Needs based on ESRD/HD, wound; 53.7kg adj for BL AKA 25-35 kcals/kg [id number] total kcals 1.25-1.8 g protein/kg 67-97 g total protein Fluid per MD on HD NUTRITION DIAGNOSIS: * Increased kcal/pro intake needs R/T renal dysfunction, wound healing as evidenced by ESRD dx, on HD, admitted w/partial thickness wound R ischium- pt is PEJ dep. CURRENT TF: Nepro @40ml/hr ENTERAL NUTRITION RECOMMENDATIONS: Nepro @ 40ml/hr x 24 hrs to provide 960ml, 1728kcal, 78g, 698ml free water * Maintain Nepro @40ml/hr to meet 100% est needs * HOB over 30 degrees/ water flush per MD. ADDITIONAL RECOMMENDATIONS: * Calibrated dry wt post HD * Wound healing: F/up w/ WC eval continue Nephrovite x1, add Brian 1pkt BID * Monitor lytes * Monitor tolerance to TF post new Jtube placement. (08/08) Held for CT abdomen today. (17) Dementia (18) Pancreatitis (19) Electrolyte imbalance (20) Hypotension (21) GI bleed (22) UGI bleed (23) Jejunostomy tube leak (24) C. difficile colitis (25) G tube feedings (26) Cough with hemoptysis (27) Mass of left lung (28) no IV acess Willian Machado Aug 10, 2020 15:07
[2020-08-10 16:00] VITALS: BP 137/60
--- NOTE | 2020-08-10 16:07 | Infectious Diseases Prog Note ---
Assessment/Plan Problems: (1) Sepsis Assessment & Plan: with fever and leukocytosis suspect aspiration pneumonia with no evidence of intraabdominal process to explain it on CT ABD/Pelvis with contrast, repeated blood culture x 2 is negative , continue meropenem and zyvox for 10 days total (2) Aspiration pneumonia Assessment & Plan: continue meropenem and zyvox for 10 days , repeated blood culture x 2 is negative , and sputum culture, aspiration precaution keep head of bed more than 30 all the time. repeat CXR for follow up (3) Colonization with VRE (vancomycin-resistant enterococcus) Assessment & Plan: keep patient in contact isolation (4) MRSA nasal colonization Assessment & Plan: keep patient in contact isolation (5) DM (diabetes mellitus) Assessment & Plan: recommend tight glycemic control to keep blood glucose between 80-120 (6) ESRD (end stage renal disease) on dialysis Assessment & Plan: continue hemodialysis as per renal service monitor daily weight (7) Malfunctioning jejunostomy tube Assessment & Plan: continue local site care with dressing and keep clean and dry to avoid infection pending placement of new tube on Wednesday, already on Zosyn treatment (8) Liver mass, right lobe Assessment & Plan: may need three phase CT liver to confirm and follow up with GI Subjective ROS Limited/Unobtainable: Yes Allergies: Coded Allergies: GABAPENTIN (Unverified Allergy, Unknown, 06/14/19) she was lying in bed comfortable, awake and responsive to verbal command, no longer has fever and no chills , has mild cough but no shortness of breath, still congested and has secretions with yellow color , had loose bowel movements Objective Last 24 Hour Vital Signs Date Time Temp Pulse Resp B/P (MAP) Pulse Ox O2 Delivery O2 Flow Rate FiO2 08/10/20 12:00 97.7 68 18 142/77 (98) 100 08/10/20 11:31 68 08/10/20 09:00 Nasal Cannula 2.0 08/10/20 08:35 98 Nasal Cannula 2.0 28 08/10/20 08:35 69 18 98 Nasal Cannula 2.0 28 08/10/20 08:00 97.5 93 20 145/84 (104) 95 08/10/20 07:37 73 08/10/20 04:00 97.5 69 20 139/64 (89) 94 08/10/20 04:00 68 08/10/20 00:00 98.9 66 22 150/50 (83) 95 08/10/20 00:00 71 08/09/20 21:00 Nasal Cannula 2.0 08/09/20 20:00 99.0 65 22 162/70 (100) 99 08/09/20 20:00 75 08/09/20 19:16 99 Nasal Cannula 2.0 28 08/09/20 19:16 70 18 99 Nasal Cannula 2.0 28 Height (Feet): 4 Height (Inches): 9.00 Weight (Pounds): 136 General Appearance: WD/WN, no acute distress HEENT: normocephalic, atraumatic, anicteric, mucous membranes moist, PERRL Respiratory/Chest: chest wall non-tender, no respiratory distress, no accessory muscle use, decreased breath sounds, crackles/rales Cardiovascular: normal peripheral pulses, normal rate, regular rhythm, no gallop/murmur, no JVD Abdomen: normal bowel sounds, soft, non tender, no organomegaly, non distended, no mass, no scars Genitourinary: normal external genitalia Extremities: no cyanosis, no clubbing Skin: no rash, no lesions, ulcers Neurologic/Psychiatric: alert, responsive Lymphatic: no neck adenopathy, no groin adenopathy Musculoskeletal: normal muscle bulk, no effusion Microbiology Date/Time Source Procedure Growth Status 08/07/20 17:45 Stool Clostridium difficile Toxin Assay - Final Complete Laboratory Tests Test 08/09/20 17:32 08/10/20 08:50 POC Whole Blood Glucose 79 MG/DL (74-106) White Blood Count 7.3 K/UL (4.8-10.8) Red Blood Count 3.39 M/UL (4.20-5.40) L Hemoglobin 10.1 G/DL (12.0-16.0) L Hematocrit 32.0 % (37.0-47.0) L Mean Corpuscular Volume 94 FL (80-99) Mean Corpuscular Hemoglobin 29.8 PG (27.0-31.0) Mean Corpuscular Hemoglobin Concent 31.5 G/DL (32.0-36.0) L Red Cell Distribution Width 16.5 % (11.6-14.8) H Platelet Count 193 K/UL (150-450) Mean Platelet Volume 6.5 FL (6.5-10.1) Neutrophils (%) (Auto) 62.7 % (45.0-75.0) Lymphocytes (%) (Auto) 18.5 % (20.0-45.0) L Monocytes (%) (Auto) 10.3 % (1.0-10.0) H Eosinophils (%) (Auto) 6.7 % (0.0-3.0) H Basophils (%) (Auto) 1.8 % (0.0-2.0) Sodium Level 129 MMOL/L (136-145) L Potassium Level 3.5 MMOL/L (3.5-5.1) Chloride Level 92 MMOL/L (98-107) L Carbon Dioxide Level 27 MMOL/L (21-32) Anion Gap 10 mmol/L (5-15) Blood Urea Nitrogen 50 mg/dL (7-18) H Creatinine 6.4 MG/DL (0.55-1.30) H Estimat Glomerular Filtration Rate 7.5 mL/min (>60) Glucose Level 104 MG/DL (74-106) Calcium Level 8.5 MG/DL (8.5-10.1) Total Bilirubin 0.4 MG/DL (0.2-1.0) Aspartate Amino Transf (AST/SGOT) 37 U/L (15-37) Alanine Aminotransferase (ALT/SGPT) 35 U/L (12-78) Alkaline Phosphatase 191 U/L (46-116) H Total Protein 7.6 G/DL (6.4-8.2) Albumin 2.7 G/DL (3.4-5.0) L Globulin 4.9 g/dL Albumin/Globulin Ratio 0.6 (1.0-2.7) L Current Medications Medications (Trade) Dose Ordered Sig/Selene Route PRN Reason Start Time Stop Time Status Last Admin Dose Admin Acetaminophen (Tylenol) 650 mg Q6H PRN ORAL For fever 08/07/20 08:15 09/06/20 08:14 08/07/20 17:08 Aspirin (ASA) 81 mg DAILY NG 08/06/20 09:00 09/17/20 08:59 08/10/20 08:44 Chlorhexidine Gluconate (Ivory-Hex 2%) 1 applic DAILY@1999 TOPIC 08/09/20 20:00 11/07/20 19:59 08/09/20 23:45 Dextrose (Dextrose 50%) 25 ml Q30M PRN IV Hypoglycemia 08/05/20 11:30 11/01/20 02:59 Dextrose (Dextrose 50%) 50 ml Q30M PRN IV Hypoglycemia 08/05/20 11:30 11/01/20 02:59 08/06/20 18:01 Epoetin Alli (Epoetin Alli(ESRD on dialysis)) 4,000 unit SUBQ 08/07/20 21:00 11/05/20 20:59 08/09/20 23:45 Folic Acid (Folate) 1 mg DAILY NG 08/06/20 09:00 09/02/20 08:59 08/10/20 08:44 Heparin Sodium (Porcine) (Heparin Sod 1000 units/ml 10ml) 500 unit ONCE PRN IV HD 08/10/20 06:00 08/10/20 23:59 Linezolid 300 ml @ 300 mls/hr Q12HR IVPB 08/07/20 13:00 08/14/20 12:59 08/10/20 08:44 Meropenem 500 mg/ Sodium Chloride 55 ml @ 110 mls/hr Q24H IVPB 08/07/20 13:00 08/12/20 12:59 08/10/20 12:43 Midodrine (Pro-Amatine) 10 mg THREE TIMES A DAY ORAL 08/06/20 21:30 11/04/20 21:29 08/09/20 12:54 Polyethylene Glycol (Miralax) 17 gm DAILY NG 08/06/20 09:00 09/02/20 08:59 Pravastatin Sodium (Pravachol) 20 mg BEDTIME NG 08/05/20 21:00 09/02/20 20:59 08/09/20 23:45 Sennosides (Senokot) 17.2 mg Q24H PRN NG CONSTIPATION 08/05/20 11:30 09/01/20 11:29 Sodium Chloride 1,000 ml @ 500 mls/hr Q2H PRN IVLG sbp<90 during hd 08/10/20 06:00 08/10/20 23:59 Timolol Maleate (timoloL maleate 0.5% Op Soln) 1 drop BID BOTH EYES 08/05/20 18:00 09/02/20 08:59 08/10/20 08:44 Vitamin B Complex/ Vit C/Folic Acid (Nephrovite) 1 tab DAILY NG 08/06/20 09:00 09/02/20 08:59 08/10/20 08:44 Morteza Castillo M.D. Aug 10, 2020 16:07
[2020-08-10 20:00] VITALS: BP 138/64
--- NOTE | 2020-08-10 21:44 | Discharge Summary ---
DATE OF ADMISSION: 08/02/2020 DATE OF DISCHARGE: 08/10/2020 HOSPITAL COURSE: This is an 85-year-old female with history of end-stage renal disease, on hemodialysis 3 times a week, hypertension, diabetes, hyperlipidemia, peripheral vascular disease, and history of CVA with DVT and anemia of chronic disease, who was brought in from [facility] for dislodged J-tube. The patient, while in the hospital, had the J-tube replaced by GI, Dr. Perales, but the patient had aspiration pneumonia due to NG tube that was placed 2 days before the J-tube was changed. The patient was started on IV antibiotic with Zosyn and vancomycin, nasal culture showed MRSA and the patient was changed from Zosyn and vancomycin to meropenem and Zyvox IV because she spiked a fever on Zosyn and vancomycin. Her white count improved and the patient will be discharged back to the [facility] with 6 more days of IV antibiotics, meropenem and Zyvox. The patient also had dialysis done as an inpatient with Dr. Arnold. DISCHARGE DIAGNOSES: 1. Aspiration pneumonia. 2. Dislodged J-tube. 3. End-stage renal disease. 4. Elevated troponin secondary to end-stage renal disease. 5. Orthostatic hypotension. 6. Hyperlipidemia. 7. Diabetes mellitus type 2. 8. Anemia of chronic disease. 9. Fever. 10. Gout. 11. History of CVA. 12. History of peripheral artery disease, status post AKA bilaterally. DISCHARGE MEDICATIONS: The patient will be discharged with IV antibiotics, Zyvox 600 mg IV q.12h. for 6 more days and meropenem 500 mg IV daily for 6 more days, and we will continue the previous medication from [facility] where she came from. DISPOSITION: The patient will be discharged back to [facility] after hemodialysis today and I will be following the patient at the facility. Pam Alcantar M.D. DR: OMEGA JOB#: [id number] CC: [email or web address]
[2020-08-10] MEDS: Dyna-Hex 2% Top Sol 2oz TOPIC SCH (21:55)
== END 2020-08-10 22:45 | DRG 871 ==
LOC: EDBD 15:25 → EMR 15:45 → 2E 16:15 → EDBEDREQ 17:49 → 4E 08-05 11:27 → 2E 08-06 02:02
PROC: 5A1D70Z Performance of Urinary Filtration, Intermittent, Less than 6 Hours Per Day (ICD-10-PCS; principal; 2020-08-02)
PROC: 0D2DXUZ Change Feeding Device in Lower Intestinal Tract, External Approach (ICD-10-PCS; 2020-08-06 12:52)
PROC: 06HM33Z Insertion of Infusion Device into Right Femoral Vein, Percutaneous Approach (ICD-10-PCS; 2020-08-08)
DX: A41.9 Sepsis, unspecified organism (principal); N18.6 End stage renal disease; J69.0 Pneumonitis due to inhalation of food and vomit; Z43.1 Encounter for attention to gastrostomy; I12.0 Hypertensive chronic kidney disease with stage 5 chronic kidney disease or end stage renal disease; N25.81 Secondary hyperparathyroidism of renal origin; E11.22 Type 2 diabetes mellitus with diabetic chronic kidney disease; Z99.2 Dependence on renal dialysis; Z88.6 Allergy status to analgesic agent; Z89.612 Acquired absence of left leg above knee; Z89.611 Acquired absence of right leg above knee; Z86.73 Personal history of transient ischemic attack (TIA), and cerebral infarction without residual deficits; M10.9 Gout, unspecified; I73.9 Peripheral vascular disease, unspecified; I95.1 Orthostatic hypotension; Z22.322 Carrier or suspected carrier of Methicillin resistant Staphylococcus aureus; E78.5 Hyperlipidemia, unspecified; R13.10 Dysphagia, unspecified; Z22.39 Carrier of other specified bacterial diseases; R16.0 Hepatomegaly, not elsewhere classified; L89.312 Pressure ulcer of right buttock, stage 2; E87.8 Other disorders of electrolyte and fluid balance, not elsewhere classified; D63.1 Anemia in chronic kidney disease
CPT/HCPCS: 36415; 71045; 74018; 74176; 80048; 80053; 80202; 82306; 82533; 82962; 83605; 83880; 83970; 84100; 84484; 85025; 85610; 85730; 86706; 87040; 87070; 87081; 87205; 87324; 93005; 94003; 94150; 94640; 94664; 99285; J1815; J7620; U0002

== ENCOUNTER 2020-08-28 13:39 | Inpatient (IN) | payer MEDICARE, MEDICAID ==
[~2020-08-28] VITALS: Ht 162.6 cm; Wt 78.1 kg
[~2020-08-28 13:39] MED LIST changes: +ASPIRIN EC81 MG GT; +ASPIRIN81 MG JT; +FOLIC ACID1 MG GT; +HIBICLENS118 ML TOPIC; +HYDRALAZINE HCL25 M2 GT; +LINEZOLID600 MG/300 IV; +LINEZOLID600 MG/300 IVPB; +MEROPENEM500 MG IVPB; +MERREM MONIT1 EA IV; +OMEPRAZOLE40 M1 GT; +PRAVASTATIN SOD20 M1 JT; +PRO-AMATINE10 MG ORAL; +RETACRIT3000 UNIT/ SUBQ; +VITAMIN C250 MG JT; +[UNRECOGNIZED DRUG - OTHER] JT; +[UNRECOGNIZED DRUG - OTHER] JT
--- NOTE | 2020-08-28 13:49 | NUR ---
ED Nurse Note: Patient broguth in by [id number] and from [facility] for J-tube malfunction. Patient pulled out J tube. Pt came in with old J tube and noted leaking from site with yellow drainage. Awake but non verbal, unable to follow commands. Noted bilateral above the leg amputation.
--- NOTE | 2020-08-28 13:52 | Emergency Room Report ---
History of Present Illness General Chief Complaint: J-tube dislodged Source: Patient Present Illness HPI Disclaimer: Please note that this report is being documented using DRAGON technology. This can lead to erroneous entry secondary to incorrect interpretation by the dictating instrument. HPI: 85-year-old female history of ESRD on hemodialysis, dysphasia with J-tube feed dependence, hypertension, diabetes, CVA presents for evaluation of malfunctioning J-tube. Patient had J-tube replaced last month at this facility. Had been discharged on antibiotics to SNF. Reportedly the tube was given dislodged this morning. A 16 Gambian Blackwell was placed in the ostomy to keep patency. Patient cannot provide any history. Does not appear to be in pain or discomfort. EMS states that she is full code. They also state that she was coughing en route but no reports of recent fever or other illness reported by EMS. PMH: ESRD, dysphasia, G-tube dependent feeds, hypertension, diabetes, CVA PSH: Reviewed Allergies: Gabapentin Social Hx: Cannot obtain from patient Allergies: Coded Allergies: GABAPENTIN (Unverified Allergy, Unknown, 06/14/19) COVID-19 Screening Contact w/high risk pt: No Recent Travel to affected area: No Experienced COVID-19 symptoms?: No Nursing Documentation-PMH Hx Cardiac Problems: Yes - PNA, Anemia, Hyperlipidemia Hx Hypertension: Yes Hx Diabetes: Yes Hx Cancer: No Hx Gastrointestinal Problems: Yes - GERD Hx Dialysis: Yes - ESRD Hx Neurological Problems: Yes - Muscle weakness Hx Cerebrovascular Accident: Yes Review of Systems All Other Systems: limited - Unable to obtain from patient due to nonverbal status Physical Exam General: Awake nonverbal, no acute distress HEENT: NC/AT. EOMI. Cardiovascular: RRR. S1 and S2 normal. No murmur appreciated Resp: Normal work of breathing. No cough, wheezing or crackles appreciated Abdomen: Abdomen is soft, nondistended. 16 Gambian Blackwell present in ostomy in the epigastric region. Some coagulated blood around blackwell but no active bleeding. No signs of surrounding cellulitis or skin breakdown otherwise. MSK: Normal tone and bulk. Moving all extremities. Bilateral BKA Medical Decision Making Diagnostic Impression: Primary Impression: Malfunctioning jejunostomy tube Additional Impression: ESRD (end stage renal disease) on dialysis ER Course 85-year-old female multiple comorbidities presents for accidental dislodgment of jejunostomy tube. Arrives in stable condition and a 16 Gambian Blackwell catheter was placed prior to arrival to keep ostomy patent. No active bleeding. EMS noted cough but no current cough or respiratory distress or abnormal vital signs at the moment. Labs show anemia with hemoglobin 8.8. No evidence of active bleeding. MCV is elevated. Chemistry shows chronically elevated troponin. There is evidence of ESRD consistent with patient history however potassium within normal limits. Questionable consolidation right lower lobe. Treated with cefepime. Contacted Dr. Perales of gastroenterology for J-tube replacement. She will be admitted to her PMD, Dr. Dodson Laboratory Tests Test 08/28/20 14:30 White Blood Count 4.5 K/UL (4.8-10.8) L Red Blood Count 2.86 M/UL (4.20-5.40) L Hemoglobin 8.8 G/DL (12.0-16.0) L Hematocrit 28.7 % (37.0-47.0) L Mean Corpuscular Volume 101 FL (80-99) H Mean Corpuscular Hemoglobin 30.8 PG (27.0-31.0) Mean Corpuscular Hemoglobin Concent 30.7 G/DL (32.0-36.0) L Red Cell Distribution Width 17.5 % (11.6-14.8) H Platelet Count 200 K/UL (150-450) Mean Platelet Volume 7.6 FL (6.5-10.1) Neutrophils (%) (Auto) 48.2 % (45.0-75.0) Lymphocytes (%) (Auto) 28.1 % (20.0-45.0) Monocytes (%) (Auto) 10.5 % (1.0-10.0) H Eosinophils (%) (Auto) 11.7 % (0.0-3.0) H Basophils (%) (Auto) 1.6 % (0.0-2.0) Prothrombin Time 11.1 SEC (9.30-11.50) Prothrombin Time INR 1.0 (0.9-1.1) Activated Partial Thromboplast Time 32 SEC (23-33) Sodium Level 136 MMOL/L (136-145) Potassium Level 4.3 MMOL/L (3.5-5.1) Chloride Level 101 MMOL/L (98-107) Carbon Dioxide Level 28 MMOL/L (21-32) Anion Gap 7 mmol/L (5-15) Blood Urea Nitrogen 21 mg/dL (7-18) H Creatinine 4.0 MG/DL (0.55-1.30) H Estimated Glomerular Filtration Rate 13.0 mL/min (>60) Glucose Level 80 MG/DL (74-106) Calcium Level 8.8 MG/DL (8.5-10.1) Total Bilirubin 0.4 MG/DL (0.2-1.0) Aspartate Amino Transferase (AST) 45 U/L (15-37) H Alanine Aminotransferase (ALT) 33 U/L (12-78) Alkaline Phosphatase 237 U/L (46-116) H Troponin I 0.151 ng/mL (0.000-0.056) Total Protein 7.7 G/DL (6.4-8.2) Albumin 2.4 G/DL (3.4-5.0) L Globulin 5.3 g/dL Albumin/Globulin Ratio 0.5 (1.0-2.7) L Microbiology Date/Time Source Procedure Growth Status 08/28/20 14:30 Nasopharynx SARS-CoV-2 RdRp Gene Assay - Final Complete EKG Diagnostic Results Troponin ordered: Yes When was troponin ordered?: Aug 28, 2020 Rate: normal Other Impression Sinus rhythm with multiple PVCs, indeterminate axis, elevated QTC 501 ms ASA given to the pt in ED: Yes Rhythm Strip Diag. Results Rhythm Strip Time: 15:15 EP Interpretation: yes Rate: 70s Chest X-Ray Diagnostic Results Chest X-Ray Diagnostic Results : Chest X-Ray Ordered: Yes # of Views/Limited/Complete: 1 View Indication: Other - Cough Interpretation: no effusion, no pneumothorax, other - Questionable consoli dation right lower lobe Impression: Other - Possible consolidation versus atelectasis right lower lobe Electronically Signed by: Electronically signed by Dr. Finesse Ivan Disposition: ADMITTED INPATIENT Condition: Serious Finesse Ivan MD Aug 28, 2020 13:52
[2020-08-28 14:00] VITALS: BP 188/61
[2020-08-28] MEDS ORDERED: PROCRIT3000 UNIT/ SUBQ (14:12)
[2020-08-28] MEDS ORDERED: ACIDOPHILUS1 EAC6 JT (14:12)
[2020-08-28] MEDS ORDERED: NEPHROVITE1 TAB JT (14:12)
[2020-08-28] MEDS ORDERED: HUMALOG100 UNIT/4 SUBQ (14:12)
--- NOTE | 2020-08-28 14:20 | NUR ---
ED Nurse Note: Collected blood and covid19 swab then sent.
--- NOTE | 2020-08-28 14:42 | NUR ---
ED Nurse Note: RN tried to straight cath patient for urine sample. RN unable to get urine and Dr Ivan was notified is okay without collecting urine at this time.
[2020-08-28 15:35] LABS: BASOPHILS % (AUTO) 1.6 % (0.0-2.0); EOSINOPHILS % (AUTO) 11.7 % (0.0-3.0); HEMATOCRIT 28.7 % (37.0-47.0); HEMOGLOBIN 8.8 G/DL (12.0-16.0); LYMPHOCYTES % (AUTO) 28.1 % (20.0-45.0); MEAN CORPUSCULAR VOLUME 101 FL (80-99); MONOCYTES % (AUTO) 10.5 % (1.0-10.0); NEUTROPHILS % (AUTO) 48.2 % (45.0-75.0); PLATELET COUNT 200 K/UL (150-450); RED BLOOD COUNT 2.86 M/UL (4.20-5.40); RED CELL DISTRIBUTION WIDTH 17.5 % (11.6-14.8); WHITE BLOOD COUNT 4.5 K/UL (4.8-10.8)
[2020-08-28 15:49] LABS: CALCIUM 8.8 MG/DL (8.5-10.1); POTASSIUM 4.3 MMOL/L (3.5-5.1)
--- NOTE | 2020-08-28 15:59 | NUR ---
ED Nurse Note: SBP [address] Ivan was notified. Waiting for new orders.
[2020-08-28 16:00] VITALS: BP 191/76
[2020-08-28 16:03] LABS: ALBUMIN 2.4 G/DL (3.4-5.0); ALBUMIN/GLOBULIN RATIO 0.5 (1.0-2.7); BILIRUBIN,TOTAL 0.4 MG/DL (0.2-1.0)
[2020-08-28] MEDS ORDERED: Aspirin Baby 81mg ORAL ONE (16:15)
[2020-08-28] MEDS ORDERED: Labetalol 5mg/ml 20ml vial IV ONE (16:15)
[2020-08-28] MEDS ORDERED: Cefepime HCl 1 GM in D5W 55 ML IVPB ONE (17:00)
--- NOTE | 2020-08-28 17:36 | General Progress Note ---
Subjective Date patient seen: Aug 28, 2020 Time patient seen: 05:00 Allergies: Coded Allergies: GABAPENTIN (Unverified Allergy, Unknown, 06/14/19) Subjective patient was seen in ER. full dictation done. [id number]. Objective Last 24 Hour Vital Signs Date Time Temp Pulse Resp B/P (MAP) Pulse Ox O2 Delivery O2 Flow Rate FiO2 08/28/20 16:16 86 191/76 08/28/20 16:00 98.6 86 20 191/76 99 Nasal Cannula 2.0 08/28/20 14:00 98.4 76 16 188/61 100 Nasal Cannula 2.0 08/28/20 13:39 98.4 70 18 190/80 (116) 95 Nasal Cannula 2.0 Laboratory Tests 08/28/20 14:30: White Blood Count 4.5L, Red Blood Count 2.86L, Hemoglobin 8.8L, Hematocrit 28.7L , Mean Corpuscular Volume 101H, Mean Corpuscular Hemoglobin 30.8, Mean Corpuscular Hemoglobin Concent 30.7L, Red Cell Distribution Width 17.5H, Platelet Count 200, Mean Platelet Volume 7.6, Neutrophils (%) (Auto) 48.2, Lymphocytes (%) (Auto) 28.1, Monocytes (%) (Auto) 10.5H, Eosinophils (%) (Auto) 11.7H, Basophils (%) (Auto) 1.6, Prothrombin Time 11.1, Prothromb Time International Ratio 1.0, Activated Partial Thromboplast Time 32, Sodium Level 136, Potassium Level 4.3, Chloride Level 101, Carbon Dioxide Level 28, Anion Gap 7, Blood Urea Nitrogen 21H, Creatinine 4.0H, Estimat Glomerular Filtration Rate 13.0, Glucose Level 80, Calcium Level 8.8, Total Bilirubin 0.4, Aspartate Amino Transf (AST/SGOT) 45H, Alanine Aminotransferase (ALT/SGPT) 33, Alkaline Phosphatase 237H, Troponin I 0.151H, Total Protein 7.7, Albumin 2.4L, Globulin 5.3, Albumin/Globulin Ratio 0.5L Height (Feet): 5 Height (Inches): 4.00 Weight (Pounds): 160 Pam Alcantar MD Aug 28, 2020 17:36
[2020-08-28 18:03] VITALS: BP 168/89
--- NOTE | 2020-08-28 18:45 | History and Physical Report ---
DATE OF ADMISSION: 08/28/2020 CHIEF COMPLAINT: Dislodged J-tube. HISTORY OF PRESENT ILLNESS: This is an 84-year-old female with a history of end-stage renal disease, on hemodialysis 3 times a week, hypertension, diabetes, hyperlipidemia, peripheral vascular disease, and history of CVA and DVT and history of anemia of chronic disease, and gout, who was brought in from [facility] for dislodged J-tube. The patient is paraplegic and status post bilateral sgrhf-nbn-aepk amputation secondary to peripheral vascular disease. PAST MEDICAL HISTORY: Includes end-stage renal disease, on hemodialysis, hypertension, diabetes, hyperlipidemia, peripheral vascular disease, history of the CVA, DVT, and anemia of chronic disease, gout, and functional paraplegia. PAST SURGICAL HISTORY: Includes history of bilateral pnhbd-rmp-ruor amputations. ALLERGIES: Gabapentin. SOCIAL HISTORY: The patient lives in the [facility] as a long-term patient. No history of alcohol use, or drug use. No smoking. FAMILY HISTORY: Noncontributory. REVIEW OF SYSTEMS: Negative except per HPI. PHYSICAL EXAMINATION: VITAL SIGNS: Temperature 98.4, pulse 70, respirations 18, blood pressure 190/80, pulse ox 95, O2 sat is 95% on room air. GENERAL APPEARANCE: Alert, in no acute distress. HEENT: Normocephalic, normochromic. Extraocular muscles intact. Throat is clear. Neck is supple. No lymphadenopathy. LUNGS: Clear to auscultation bilaterally. ABDOMEN: Soft, nontender, and nondistended. Positive bowel sounds CARDIOVASCULAR: Regular rate and rhythm. No murmur. No gallop. EXTREMITIES: Showed bilateral phkqu-zid-hcgf amputation. NEUROLOGIC: The patient does not respond to commands, but alert and awake. LABORATORY AND DIAGNOSTIC DATA: Includes WBC 4.5, hemoglobin 8.8, hematocrit 28.7, platelet count 200, neutrophils 48, lymphocytes 28.1. Sodium 136, potassium 4.3, chloride 101, bicarb 28, BUN 21, creatinine 4, glucose 80, calcium 8.8, AST 45, ALT 33, troponin 0.151, albumin 2.4, and PT 11.1, INR 1, PTT 32. COVID-19 test was done in the ER and is negative. IMPRESSION: 1. Malfunction J-tube. 2. End-stage renal disease. PLAN: 1. GI, Dr. Perales, will be consulted for J-tube replacement. 2. End-stage renal disease. If the patient needs to be admitted for more than a day or 2, we will have Dr. Arnold see the patient for dialysis. 3. Hyperlipidemia and diabetes. We will continue the patient on home med. For diabetes, we will continue the patient on sliding scale insulin. 4. History of anemia of chronic disease. 5. Gout. 6. CVA. 7. History of PAD, status post ehmsa-yjo-jiur amputations bilaterally. We will continue home meds from the half-way at this point. Pam Alcantar M.D. DR: OMEGA JOB#: [id number] CC: BHANU
[2020-08-28 19:00] VITALS: BP 159/78
--- NOTE | 2020-08-28 19:12 | NUR ---
HAND-OFF: Report given to Fred RN.
--- NOTE | 2020-08-28 19:13 | NUR ---
ED Nurse Note: Report received from GRETCHEN Mckeon RN. Patient on bed resting
[2020-08-28 21:00] VITALS: BP 157/86
--- NOTE | 2020-08-28 21:05 | NUR ---
ED Nurse Note: Report given to MIKEL IVY
[2020-08-28] MEDS ORDERED: Labetalol 5mg/ml 20ml vial IV PRN (21:30)
--- NOTE | 2020-08-28 21:30 | NUR ---
ED Nurse Note: BP 180/74. ERMD notified. LAbetolol 4mg given
[2020-08-28 21:32] VITALS: BP 180/74
--- NOTE | 2020-08-28 21:33 | NUR ---
ED Nurse Note: BP 149/73 after giving Labetelol. ERMD notified
--- NOTE | 2020-08-28 21:40 | NUR ---
TRANSFER TO FLOOR: Patient transferred to TELE at rm 216-2 via gurney, with alarm security or surveillance monitor, accompanied by RN and shale processing technician. Belongings given and checked with RN. Patient transferred safely to bed and endorsed to RN
--- NOTE | 2020-08-28 21:40 | NUR ---
NURSE NOTES: Received report from CATA Ibarra from ER. Admitted pt to room 216-2 via gurney. Pt awake, non-verbal. Pt on 02 via NC at 2L/min sating at 100%. placed on playground monitor.No s/s pain pain noted. AV fistula in place on right upper arm, IV 22g on left hand saline locked. Body check done. Belongings list check done. Oriented pt to room & unit. Bed in low position & locked. Bed alarm on. side rails up x3. Will call DR for admitting ordered.
--- NOTE | 2020-08-28 21:55 | Diagnostic Imaging Report ---
Indication: Reason For Exam: COUGH Technique: One view of the chest Comparison: 08/07/2020 Findings: There are questionable patchy right upper lobe infiltrates. The lungs and pleural spaces are otherwise clear. There is a right subclavian venous stent again demonstrated. Calcified node is again demonstrated in the left pulmonary hilum. The heart is borderline enlarged. Impression: Questionable right upper lobe infiltrate Other stable findings as described
--- NOTE | 2020-08-28 22:00 | NUR ---
NURSE NOTES: Left message for DR. Alarcon regarding J-Tube replacement
[2020-08-29] VITALS (10 sets, daily range): BP systolic 121–177; BP diastolic 45–77
--- NOTE | 2020-08-29 00:10 | NUR ---
NURSE NOTES: Notified Dr. Alcantar regarding pts bp of 177/77 with new orders given & will note & carry out.
[2020-08-29] MEDS ORDERED: Labetalol 5mg/ml 20ml vial IV ONE (00:15)
[2020-08-29] MEDS ORDERED: Labetalol 5mg/ml 20ml vial IV PRN (01:15)
[2020-08-29] MEDS: NovoLOG Insulin Flexpen SUBQ SCH ×4 (06:30→20:35)
--- NOTE | 2020-08-29 07:25 | NUR ---
NURSE HAND-OFF REPORT: Important Events on Shift:admitted for JT displacement Patient Status: stable Diet: npo Pending Orders: [] Pending Results/Labs:[] Pending MD notification:[] Latest Vital Signs: Temperature 98.9 , Pulse 80 , B/P 142 /52 , Respiratory Rate 20 , O2 SAT 97 , Nasal Cannula, O2 Flow Rate 2.0 . Vital Sign Comment: [] EKG Rhythm: Sinus Rhythm Rhythm change?: N MD Notified?: - MD Response: Latest Benitez Fall Score: 50 Fall Risk: High Risk Safety Measures: Call light Within Reach, Bed Alarm Zone 2, Side Rails Side Rails x3, Bed position Low and Locked. Fall Precautions: Door Sign Patient Fall Education Report given to CATA Elmore.
[2020-08-29 07:26] LABS: BASOPHILS % (AUTO) 0.7 % (0.0-2.0); EOSINOPHILS % (AUTO) 13.3 % (0.0-3.0); HEMATOCRIT 26.7 % (37.0-47.0); HEMOGLOBIN 8.4 G/DL (12.0-16.0); LYMPHOCYTES % (AUTO) 21.1 % (20.0-45.0); MEAN CORPUSCULAR VOLUME 96 FL (80-99); MONOCYTES % (AUTO) 8.7 % (1.0-10.0); NEUTROPHILS % (AUTO) 56.3 % (45.0-75.0); PLATELET COUNT 196 K/UL (150-450); RED BLOOD COUNT 2.79 M/UL (4.20-5.40); RED CELL DISTRIBUTION WIDTH 16.4 % (11.6-14.8); WHITE BLOOD COUNT 4.1 K/UL (4.8-10.8)
--- NOTE | 2020-08-29 07:31 | NUR ---
NURSE NOTES: Received report from Isabel. Pt in bed laying semi-fowlers. On 2L nasal cannula, no distress or SOB noted. IV on left hand 22G running NS at 50ml/hr. Pt is NPO waiting for a J-tube to be replace. Bed in the lowest position and locked. Call light within reach. Side rails up X3. Will continue plan of care.
[2020-08-29 07:52] LABS: CALCIUM 8.1 MG/DL (8.5-10.1); POTASSIUM 4.2 MMOL/L (3.5-5.1)
--- NOTE | 2020-08-29 08:30 | NUR ---
Called next of kin to get consent for G-tube or J-tube placement, left a message. Waiting for a call back.
--- NOTE | 2020-08-29 08:58 | General Progress Note ---
Subjective Date patient seen: Aug 29, 2020 Time patient seen: 08:45 Constitutional: Reports: no symptoms HEENT: Reports: no symptoms Cardiovascular: Reports: no symptoms Respiratory: Reports: no symptoms Gastrointestinal/Abdominal: Reports: no symptoms Genitourinary: Reports: no symptoms Neurologic/Psychiatric: Reports: no symptoms Endocrine: Reports: no symptoms Hematologic/Lymphatic: Reports: no symptoms Allergies: Coded Allergies: GABAPENTIN (Unverified Allergy, Unknown, 06/14/19) Subjective This morning, she is doing well and awaiting Peg tube placement. no sob or chest pain. no fever or chills. Dr Arnold will see her for HD. Objective Last 24 Hour Vital Signs Date Time Temp Pulse Resp B/P (MAP) Pulse Ox O2 Delivery O2 Flow Rate FiO2 08/29/20 04:00 98.9 80 20 142/52 (82) 97 08/29/20 04:00 75 08/29/20 00:28 78 177/78 08/29/20 00:00 68 08/29/20 00:00 98.6 78 20 177/77 (110) 98 08/28/20 23:27 Nasal Cannula 2.0 08/28/20 21:41 98.2 69 20 149/78 100 Nasal Cannula 2.0 08/28/20 21:32 98.2 69 20 180/74 100 Nasal Cannula 2.0 08/28/20 21:27 68 180/74 08/28/20 21:00 98.2 66 20 157/86 100 Nasal Cannula 2.0 08/28/20 19:00 98.2 68 18 159/78 100 Nasal Cannula 2.0 08/28/20 18:03 98.2 79 18 168/89 100 Nasal Cannula 2.0 08/28/20 16:16 86 191/76 08/28/20 16:00 98.6 86 20 191/76 99 Nasal Cannula 2.0 08/28/20 14:00 98.4 76 16 188/61 100 Nasal Cannula 2.0 08/28/20 13:39 98.4 70 18 190/80 (116) 95 Nasal Cannula 2.0 Intake and Output 08/28/20 08/29/20 18:59 06:59 Intake Total 55 ml Balance 55 ml Intake Oral 0 ml IV Total 55 ml # Voids 1 # Bowel Movements 1 Laboratory Tests 08/28/20 14:30: White Blood Count 4.5L, Red Blood Count 2.86L, Hemoglobin 8.8L, Hematocrit 28.7L , Mean Corpuscular Volume 101H, Mean Corpuscular Hemoglobin 30.8, Mean Corpuscular Hemoglobin Concent 30.7L, Red Cell Distribution Width 17.5H, Platelet Count 200, Mean Platelet Volume 7.6, Neutrophils (%) (Auto) 48.2, Lymphocytes (%) (Auto) 28.1, Monocytes (%) (Auto) 10.5H, Eosinophils (%) (Auto) 11.7H, Basophils (%) (Auto) 1.6, Prothrombin Time 11.1, Prothromb Time International Ratio 1.0, Activated Partial Thromboplast Time 32, Sodium Level 136, Potassium Level 4.3, Chloride Level 101, Carbon Dioxide Level 28, Anion Gap 7, Blood Urea Nitrogen 21H, Creatinine 4.0H, Estimat Glomerular Filtration Rate 13.0, Glucose Level 80, Calcium Level 8.8, Total Bilirubin 0.4, Aspartate Amino Transf (AST/SGOT) 45H, Alanine Aminotransferase (ALT/SGPT) 33, Alkaline Phosphatase 237H, Troponin I 0.151H, Total Protein 7.7, Albumin 2.4L, Globulin 5.3, Albumin/Globulin Ratio 0.5L 08/29/20 05:58: POC Whole Blood Glucose 66L 08/29/20 06:04: POC Whole Blood Glucose 65L 08/29/20 06:30: White Blood Count 4.1L, Red Blood Count 2.79L, Hemoglobin 8.4L, Hematocrit 26.7L , Mean Corpuscular Volume 96, Mean Corpuscular Hemoglobin 30.1, Mean Corpuscular Hemoglobin Concent 31.5L, Red Cell Distribution Width 16.4H, Platelet Count 196, Mean Platelet Volume 6.5, Neutrophils (%) (Auto) 56.3, Lymphocytes (%) (Auto) 21.1, Monocytes (%) (Auto) 8.7, Eosinophils (%) (Auto) 13.3H, Basophils (%) (Auto) 0.7, Sodium Level 138, Potassium Level 4.2, Chloride Level 103, Carbon Dioxide Level 26, Anion Gap 9, Blood Urea Nitrogen 25H, Creatinine 5.0H, Estimat Glomerular Filtration Rate 9.9, Glucose Level 69L, Calcium Level 8.1L 08/29/20 06:58: POC Whole Blood Glucose 120H Height (Feet): 5 Height (Inches): 4.00 Weight (Pounds): 160 General Appearance: no apparent distress, alert Neck: non-tender, supple Cardiovascular: normal rate, regular rhythm Respiratory/Chest: lungs clear, normal breath sounds Abdomen: non tender, soft Extremities: non-tender Edema: no edema noted Arm (L), no edema noted Arm (R) Neurologic: alert, responsive Skin: warm/dry Assessment/Plan Status: stable Assessment/Plan: 1. Dislodged J tube - awaiting replacement of J tube today. 2. ESRD on HD - will have Dr Arnold see the patient for HD. 3. H/o Orthostatic Hypotension - currently BP is ok and will hold off Midodrine for now. 4. Anemia due to ESRD - on procrit. Pam Alcantar MD Aug 29, 2020 08:58
[2020-08-29] MEDS: timoloL maleate 0.5% Op Soln 2.5ml BOTH EYES SCH ×2 (09:00→18:00)
[2020-08-29] MEDS: Heparin 5000 units/ml inj SUBQ SCH ×2 (09:00→20:35)
[2020-08-29] MEDS: Nephrovite tab (Rena-Vite) ORAL SCH (09:00)
[2020-08-29] MEDS: Miralax 17gm pkt GT SCH (09:00)
--- NOTE | 2020-08-29 10:52 | NUR ---
RD ASSESSMENT & RECOMMENDATIONS SEE CARE ACTIVITY FOR COMPLETE ASSESSMENT DAILY ESTIMATED NEEDS: Needs based on ESRD/HD, wound; 56.4kg adj for BL AKA 25-35 kcals/kg [id number] total kcals 1.25-1.8 g protein/kg 70-101 g total protein Fluid per MD on HD mL/kg . total fluid mLs NUTRITION DIAGNOSIS: * Increased kcal/pro intake needs R/T renal dysfunction, wound healing as evidenced by ESRD dx, on HD, admitted w/ multiple wounds per photo, pending eval, currently NPO awaiting Jtube replacement. CURRENT TF:NPO ENTERAL NUTRITION RECOMMENDATIONS: Nepro @ 40ml/hr x 24 hrs to provide 960ml, 1728kcal, 78g prot, 698ml free water * As medically appropriate, initiate Nepro @ 20ml/hr x 6hrs * Advance 10ml q 4-6 hrs as tolerated to goal * HOB over 30 degrees/ water flush per MD. ADDITIONAL RECOMMENDATIONS: * Calibrated dry wt post HD * Wound healing: F/up w/ WC eval continue Nephrovite x1, add Brian 1pkt BID (mix w/ <4oz water) * Monitor lytes * Rec added D5 or D10 while NPO to prevent hypoglycemia BGs 65, 66 (08/29)
--- NOTE | 2020-08-29 11:18 | NUR ---
NURSE NOTES:WOUND ASSESSMENT PATIENT AWAKE AND NON-VERBAL. NOTED BILATERAL AKA'S. PATIENT UNABLE TO ASSIST WITH REPOSITIONING IN BED. RIGHT AND LEFT POSTERIOR UPPER THIGHS- NOTED DIFFUSE EXCORIATION TO AREA. RECOMMEND- CLEAN AREA WITH SOAP AND WATER. APPLY TRIAD AND COVER WITH OPTIFOAM DRESSINGS. REPLACE DRESSINGS DAILY AND PRN. LEFT BUTTOCK - STAGE II PRESSURE ULCER MEASURING 1.4X2.0X0.2CM. WOUND BED PINK. MINIMAL SERO-SANGUINEOUS DRAINAGE. ARTEMIO-WOUND WITH SOME EXCORIATED AREAS. RECOMMEND- CLEAN AREA WITH SALINE. PAT DRY. APPLY TRIAD AND COVER WITH OPTIFOAM DRESSING. REPLACE DAILY AND PRN. REPOSITION AT LEAST EVERY 2 HOURS OR TOLERATED.
--- NOTE | 2020-08-29 12:04 | Pre-Procedure Note/Attestation ---
Pre-Procedure Note/Attestation Complete Prior to Procedure Planned Procedure: not applicable Procedure Narrative: egd/JT placement Indications for Procedure Pre-Operative Diagnosis: dysphagia Attestation I attest that I discussed the nature of the procedure; its benefits; risks and complications; and alternatives (and the risks and benefits of such alternatives), prior to the procedure, with the patient (or the patient's legal graphic art sales representative). I attest that, if there was a reasonable possibility of needing a blood transfusion, the patient (or the patient's legal graphic art sales representative) was given the [facility] standardized written summary, pursuant to the Marlon Marcos Blood Safety Act ([place] Health and Safety Code # 1645, as amended). I attest that I re-evaluated the patient just prior to the surgery and that there has been no change in the patient's H&P, except as documented below: Ezequiel Perales MD Aug 29, 2020 12:04
[2020-08-29] MEDS ORDERED: Heparin Sod 1000 units/ml 10ml IV PRN (12:10)
--- NOTE | 2020-08-29 12:16 | Consultation ---
Consult Note Assessment/Plan Consult dictated # [id number] Aftab Arnold MD Aug 29, 2020 12:16
[2020-08-29] MEDS ORDERED: NS 500ML IVPB ONE (12:40)
[2020-08-29 12:49] LABS: % IRON SATURATION 24 % (15-50); IRON 39 ug/dL (50-175); TOTAL IRON BINDING CAPACITY 163 ug/dL (250-450)
--- NOTE | 2020-08-29 12:50 | NUR ---
NURSE NOTES: Called [facility], talked to Jayson to schedule hemodialysis for today.
[2020-08-29] MEDS ORDERED: Lidocaine 1% MPF 10mg/ml 5ml ONE (13:00)
--- NOTE | 2020-08-29 13:19 | Immediate Post-Op Evaluation ---
Immediate Post-Op Evalulation Immediate Post-Op Evalulation Procedure: JTube replacement Date of Evaluation: Aug 29, 2020 Time of Evaluation: 13:05 IV Fluids: 200 Blood Pressure Systolic: 122 Blood Pressure Diastolic: 70 Pulse Rate: 67 Respiratory Rate: 14 O2 Sat by Pulse Oximetry: 98 Temperature (Fahrenheit): 97.1 Nausea: No Vomiting: No Patient Status: awake, reacts, patent Hydration Status: adequate Drug: none Irma Knox CRNA Aug 29, 2020 13:19
--- NOTE | 2020-08-29 13:19 | Anethesia Preoperative Eval ---
Anesthesia Pre-op PMH/ROS General Date of Evaluation: Aug 29, 2020 Time of Evaluation: 12:40 Anesthesiologist: silvestre ASA Score: ASA 4 Mallampati Score Class I : Soft palate, uvula, fauces, pillars visible Class II: Soft palate, uvula, fauces visible Class III: Soft palate, base of uvula visible Class IV: Only hard plate visible Mallampati Classification: Class III Surgeon: Carmelita Diagnosis: Jtube malfunction Surgical Procedure: Jtube replacement Anesthesia History: none Family History: no anesthesia problems Allergies: Coded Allergies: GABAPENTIN (Unverified Allergy, Unknown, 06/14/19) Medications: see eMAR Patient NPO?: Yes NPO Date: Aug 29, 2020 NPO Time: 00:01 Past Medical History Cardiovascular: Reports: HTN, CAD Pulmonary: Reports: other - 2l Nc Gastrointestinal/Genitourinary: Reports: GERD, CRI, ESRD Neurologic/Psychiatric: Reports: dementia, CVA Endocrine: Reports: DM HEENT: Denies: cataract (L), cataract (R), glaucoma, [place] UTE (L), S[place] UTE (R), other Hematology/Immune: Reports: anemia; Denies: DVT, bleeding disorder, other Musculoskeletal/Integumentary: Reports: other - gout; Denies: OA, RA, DJD, DDD, edema PMH Narrative: end-stage renal disease, on hemodialysis, hypertension, diabetes, hyperlipidemia, peripheral vascular disease, history of the CVA, DVT, and anemia of chronic disease, gout, and functional paraplegia. PSxH Narrative: keyona above knee amputation Anesthesia Pre-op Phys. Exam Physician Exam Last Vital Signs Date Time Temp Pulse Resp B/P (MAP) Pulse Ox O2 Delivery O2 Flow Rate FiO2 08/29/20 12:00 64 08/29/20 08:00 97.5 20 131/45 (73) 99 08/28/20 23:27 Nasal Cannula 2.0 Constitutional: other Neurologic: other - disoriented Respiratory: CTA Airway Exam Mallampati Classification 3 Mallampati Score: Class III MO: limited ROM: limited Dentures: no upper, no lower Anesthesia Pre-op A/P Labs Hematology Test 08/28/20 14:30 08/29/20 06:30 White Blood Count 4.5 K/UL (4.8-10.8) L 4.1 K/UL (4.8-10.8) L Red Blood Count 2.86 M/UL (4.20-5.40) L 2.79 M/UL (4.20-5.40) L Hemoglobin 8.8 G/DL (12.0-16.0) L 8.4 G/DL (12.0-16.0) L Hematocrit 28.7 % (37.0-47.0) L 26.7 % (37.0-47.0) L Mean Corpuscular Volume 101 FL (80-99) H 96 FL (80-99) Mean Corpuscular Hemoglobin 30.8 PG (27.0-31.0) 30.1 PG (27.0-31.0) Mean Corpuscular Hemoglobin Concent 30.7 G/DL (32.0-36.0) L 31.5 G/DL (32.0-36.0) L Red Cell Distribution Width 17.5 % (11.6-14.8) H 16.4 % (11.6-14.8) H Platelet Count 200 K/UL (150-450) 196 K/UL (150-450) Mean Platelet Volume 7.6 FL (6.5-10.1) 6.5 FL (6.5-10.1) Neutrophils (%) (Auto) 48.2 % (45.0-75.0) 56.3 % (45.0-75.0) Lymphocytes (%) (Auto) 28.1 % (20.0-45.0) 21.1 % (20.0-45.0) Monocytes (%) (Auto) 10.5 % (1.0-10.0) H 8.7 % (1.0-10.0) Eosinophils (%) (Auto) 11.7 % (0.0-3.0) H 13.3 % (0.0-3.0) H Basophils (%) (Auto) 1.6 % (0.0-2.0) 0.7 % (0.0-2.0) Coagulation Test 08/28/20 14:30 Prothrombin Time 11.1 SEC (9.30-11.50) Prothromb Time International Ratio 1.0 (0.9-1.1) Activated Partial Thromboplast Time 32 SEC (23-33) Chemistry Test 08/28/20 14:30 08/29/20 05:58 08/29/20 06:04 08/29/20 06:30 Sodium Level 136 MMOL/L (136-145) 138 MMOL/L (136-145) Potassium Level 4.3 MMOL/L (3.5-5.1) 4.2 MMOL/L (3.5-5.1) Chloride Level 101 MMOL/L (98-107) 103 MMOL/L (98-107) Carbon Dioxide Level 28 MMOL/L (21-32) 26 MMOL/L (21-32) Anion Gap 7 mmol/L (5-15) 9 mmol/L (5-15) Blood Urea Nitrogen 21 mg/dL (7-18) H 25 mg/dL (7-18) H Creatinine 4.0 MG/DL (0.55-1.30) H 5.0 MG/DL (0.55-1.30) H Estimat Glomerular Filtration Rate 13.0 mL/min (>60) 9.9 mL/min (>60) Glucose Level 80 MG/DL (74-106) 69 MG/DL (74-106) L Calcium Level 8.8 MG/DL (8.5-10.1) 8.1 MG/DL (8.5-10.1) L Total Bilirubin 0.4 MG/DL (0.2-1.0) Aspartate Amino Transf (AST/SGOT) 45 U/L (15-37) H Alanine Aminotransferase (ALT/SGPT) 33 U/L (12-78) Alkaline Phosphatase 237 U/L (46-116) H Troponin I 0.151 ng/mL (0.000-0.056) Total Protein 7.7 G/DL (6.4-8.2) Albumin 2.4 G/DL (3.4-5.0) L Globulin 5.3 g/dL Albumin/Globulin Ratio 0.5 (1.0-2.7) L POC Whole Blood Glucose 66 MG/DL (74-106) L 65 MG/DL (74-106) L Iron Level 39 ug/dL (50-175) L Total Iron Binding Capacity 163 ug/dL (250-450) L Percent Iron Saturation 24 % (15-50) Unsaturated Iron Binding 124 ug/dL (112-346) Test 08/29/20 06:58 08/29/20 11:31 08/29/20 12:12 POC Whole Blood Glucose 120 MG/DL (74-106) H 66 MG/DL (74-106) L 125 MG/DL (74-106) H Studies Pre-op Studies: EKG - SR Risk Assessment & Plan Plan: mac Status Change Before Surgery: No Pre-Antibiotics Drug: none Irma Knox CRNA Aug 29, 2020 13:19
--- NOTE | 2020-08-29 13:20 | 48 Hour Post Anesthesia Eval ---
Post Anesthesia Evaluation Procedure: JTube replacement Date of Evaluation: Aug 29, 2020 Time of Evaluation: 13:20 Blood Pressure Systolic: 115 0: 70 Pulse Rate: 67 Respiratory Rate: 14 O2 Sat by Pulse Oximetry: 98 Airway: patent Nausea: No Vomiting: No Hydration Status: adequate Cardiopulmonary Status: stable Mental Status/LOC: patient returned to baseline Post-Anesthesia Complications: none Follow-up care needed: N/A Irma Knox CRNA Aug 29, 2020 13:20
--- NOTE | 2020-08-29 15:45 | Consultation ---
DATE OF CONSULTATION: 08/29/2020 NEPHROLOGY CONSULTATION CONSULTING PHYSICIAN: Aftab Arnold MD. REFERRING PHYSICIAN: Pam Alcantar MD. REASON FOR CONSULTATION: End-stage renal disease, requiring hemodialysis. HISTORY OF PRESENT ILLNESS: This is an 85-year-old female with a history of end-stage renal disease, on hemodialysis every Wednesday, and Wednesday. The patient is known to me from previous admissions. She was admitted at this time like other times for dislodged J-tube. I was asked kindly by Dr. Alcantar to follow the patient for her dialysis needs. She is nonverbal and unable to provide history. PAST MEDICAL HISTORY: Includes history of hypertension, diabetes, hyperlipidemia, peripheral vascular disease, the patient is status post bilateral above-knee amputations, history of CVA, DVT, anemia, gout, and functional paraplegia. MEDICATIONS: Reviewed in the EMR. SOCIAL HISTORY: No history of smoking or alcohol abuse. The patient lives in a [facility], [facility]. ALLERGIES: Reported to gabapentin. REVIEW OF SYSTEMS: Unobtainable. PHYSICAL EXAMINATION: GENERAL: The patient is an 85-year-old female, in no acute distress. VITAL SIGNS: Blood pressure is 131/45, pulse 69, respirations 20, and temperature 97.5. HEENT: Pale conjunctivae. Anicteric sclerae. NECK: Supple. LUNGS: Clear to auscultation. HEART: S1, S2 without murmurs or rubs. ABDOMEN: Soft, nontender. EXTREMITIES: The patient has bilateral above-knee amputations. The right arm has upper arm fistula and the arm itself is swollen. She has a significant right arm edema and that is where her fistula is. There may be some problem with the fistula itself. LABORATORY FINDINGS: The CBC shows a WBC of 4100, hematocrit 26.7, hemoglobin 8.4, platelets 196,000. Chemistry panel shows serum sodium 138, potassium 4.2, chloride 103, CO2 26, BUN 25, and creatinine 5. Glucose is 69. Calcium is 8.1. ASSESSMENT: This is an 85-year-old female with history of end-stage renal disease, on hemodialysis every Wednesday, and Wednesday. She was admitted with dislodged J- tube. She is also anemic, which is from her chronic kidney disease with iron deficiency as a possibility as well. The blood pressure is better, although it was higher last night. PLAN: 1. I will order dialysis with good amount of ultrafiltration today. 2. Continue Epogen at current dose. 3. Check the iron panel. 4. Calcium is on the low side and likely she has vitamin D deficiency, however, that can be addressed as an outpatient. If I order vitamin D and PTH levels, they will probably not be back by the time the patient is discharged. Thank you very much, Dr. Alcantar, for this consultation. Aftab Arnold M.D. DR: FIONA JOB#: [id number] CC:
--- NOTE | 2020-08-29 18:00 | Procedure Note ---
DATE OF PROCEDURE: 08/29/2020 ENDOSCOPIST: Ezequiel Perales MD PROCEDURE PERFORMED: Upper endoscopy with J-tube placement. ANESTHESIA: Per INSTRUMENT STERILIZER, Irma Tarrillion. INSTRUMENT USED: Olympus adult flexible upper endoscope. INDICATIONS FOR PROCEDURE: Malfunctioning G-tube. The procedure, risks, benefits, and possible consequences, including hemorrhage, aspiration, perforation and infection, and alternative treatments, were explained to the patient/legal guardian by Dr. Ezequiel Perales and the patient/legal guardian understood and accepted these risks. DESCRIPTION OF PROCEDURE: After informed consent was obtained and the patient was adequately sedated, the Olympus upper endoscope was advanced from the mouth to second portion of the duodenum and retroflexion was performed in the stomach. Then, using a rat tooth alligator, a 24-Cypriot J-tube was successfully advanced to the small bowel without any complication. After the tube was properly placed, the balloon was inflated to secure the position. SUMMARY OF FINDINGS: Status post successful 24-Cypriot J-tube placement. RECOMMENDATIONS: Start tube feeding later today, flushing every 6 hours. I want to thank Dr. Alcantar for this kind referral. Ezequiel Perales M.D. DR: MEERA JOB#: [id number] CC: Pam Alcantar M.D.; Fax#: [phone]
--- NOTE | 2020-08-29 19:38 | NUR ---
NURSE HAND-OFF REPORT: Important Events on Shift:J-tube placed Patient Status: stable Diet: Nepro 1.8 @ 30ml/hr Pending Orders: Pending Results/Labs: Pending MD notification: Latest Vital Signs: Temperature 97.7 , Pulse 69 , B/P 140 /59 , Respiratory Rate 20 , O2 SAT 97 , Nasal Cannula, O2 Flow Rate 3 . Vital Sign Comment: Stable EKG Rhythm: Sinus Rhythm Rhythm change?: N MD Notified?: - MD Response: Latest Benitez Fall Score: 50 Fall Risk: High Risk Safety Measures: Call light Within Reach, Bed Alarm Zone 1, Side Rails Side Rails x3, Bed position Low and Locked. Fall Precautions: Yellow Socks Yellow Gown Door Sign Patient Fall Education Report given to Loraine/CATA.
--- NOTE | 2020-08-29 19:40 | NUR ---
NURSE NOTES: Important Events on Shift: J tube replaced, currently receiving dialysis; pt to transfer to [facility]-1. Receieved report from Sonali Plascencia RN. Pt in stable condition, non-verbal. NO signs or symptoms of pain or distress noted at this time. Will transfer to after dialysis. Will continue to monitor closely. Will continue plan of care. Patient Status: stable Diet: Nephro @ 30ml/hr Pending Orders: none Pending Results/Labs: cbc, bmp Pending MD notification: none Latest Vital Signs: Temperature 97.9 , Pulse 72 , B/P 144 /78 , Respiratory Rate 20 , O2 SAT 100 , Nasal Cannula, O2 Flow Rate 2.0 . Vital Sign Comment: stable EKG Rhythm: Sinus Rhythm Rhythm change?: N MD Notified?: - MD Response: Latest Benitez Fall Score: 70 Fall Risk: High Risk Safety Measures: Call light Within Reach, Bed Alarm Zone 1, Side Rails Side Rails x3, Bed position Low and Locked. Fall Precautions: yes Yellow Socks yes Yellow Gown yes Door Sign yes Patient Fall Education yes
[2020-08-29] MEDS ORDERED: Dyna-Hex 2% Top Sol 2oz TOPIC SCH (20:00)
--- NOTE | 2020-08-29 23:55 | NUR ---
TRANSFER TO FLOOR: Patient transferred to [facility], per Katy. Report given to CATA Graff. Pt has no belongings. Medications given to Dajuan IVY. Plan of care and close monitoring endorsed to new nurse.
[2020-08-30] VITALS: BP 144/78
--- NOTE | 2020-08-30 | NUR ---
NURSE NOTES: Patient transferred from Tele unit. Report from Cornelia IVY. A&OX1, non verbal. NC 2 L on. IV site patent and intact. Patient has no belongings. Wound noted on sacral and bilateral buttocks, picture taken and dressing changed. AV shunt noted on right upper arm, bruit and thrill present. G-tube in place, running Nepro 30cc/hr, 0cc residual noted, flushed, elevated HOB. Bed in lowest position. Call light within reach. Will continue to monitor.
[2020-08-30 04:00] VITALS: BP 151/73
[2020-08-30] MEDS: NovoLOG Insulin Flexpen SUBQ SCH ×2 (06:08→11:30)
[2020-08-30 07:42] LABS: CALCIUM 8.6 MG/DL (8.5-10.1); CREATININE 4.1 MG/DL (0.55-1.30)
--- NOTE | 2020-08-30 07:51 | NUR ---
NURSE HAND-OFF: Important Events on Shift: Patient Status: Diet: G-tube feeding Pending Orders: Pending Results/Labs: Pending MD notification: Latest Vital Signs: Temperature 97.7 , Pulse 63 , B/P 151 /73 , Respiratory Rate 16 , O2 SAT 100 , Nasal Cannula, O2 Flow Rate 2.0 . Vital Sign Comment: Latest Benitez Fall Score: 70 Fall Risk: High Risk Safety Measures: Call light Within Reach, Bed Alarm Zone 1, Side Rails Side Rails x3, Bed position Low and Locked. Fall Precautions: Yellow Socks Yellow Gown Door Sign Patient Fall Education Report given to Volodymyr IVY.
--- NOTE | 2020-08-30 07:52 | NUR ---
NURSE NOTES: Received report from CATA Donaldson. Patient seen in bed A&OX1, non verbal. NC 2 L on. IV site patent and intact. Wound noted on sacral and bilateral buttocks. previous shift endorsed that patient pulls out medical devices, will continue to monitor. AV shunt noted on right upper arm, bruit and thrill present. G-tube in place, running Nepro 30cc/hr, 0cc residual noted, flushed, elevated HOB. Bed in lowest position. Call light within reach. Will continue to monitor.
[2020-08-30 08:00] VITALS: BP 151/64
[2020-08-30 08:00] LABS: BASOPHILS % (AUTO) 1.6 % (0.0-2.0); HEMATOCRIT 27.9 % (37.0-47.0); HEMOGLOBIN 8.8 G/DL (12.0-16.0); LYMPHOCYTES % (AUTO) 21.3 % (20.0-45.0); MEAN CORPUSCULAR VOLUME 95 FL (80-99); MONOCYTES % (AUTO) 9.9 % (1.0-10.0); NEUTROPHILS % (AUTO) 56.2 % (45.0-75.0); PLATELET COUNT 192 K/UL (150-450); RED BLOOD COUNT 2.93 M/UL (4.20-5.40); RED CELL DISTRIBUTION WIDTH 16.4 % (11.6-14.8); WHITE BLOOD COUNT 3.6 K/UL (4.8-10.8)
[2020-08-30] MEDS: Nephrovite tab (Rena-Vite) ORAL SCH (09:23)
[2020-08-30] MEDS: Heparin 5000 units/ml inj SUBQ SCH (09:24)
[2020-08-30] MEDS: timoloL maleate 0.5% Op Soln 2.5ml BOTH EYES SCH (09:24)
[2020-08-30] MEDS: Miralax 17gm pkt GT SCH (09:24)
--- NOTE | 2020-08-30 09:30 | General Progress Note ---
Subjective Date patient seen: Aug 30, 2020 Time patient seen: 09:15 Constitutional: Reports: no symptoms HEENT: Reports: no symptoms Cardiovascular: Reports: no symptoms Respiratory: Reports: no symptoms Gastrointestinal/Abdominal: Reports: no symptoms Genitourinary: Reports: no symptoms Neurologic/Psychiatric: Reports: no symptoms Endocrine: Reports: no symptoms Hematologic/Lymphatic: Reports: no symptoms Allergies: Coded Allergies: GABAPENTIN (Unverified Allergy, Unknown, 06/14/19) Subjective This morning, she is doing well and her J tube was replaced yesterday. no sob or chest pain. no fever or chills. she had HD yesterday. Objective Last 24 Hour Vital Signs Date Time Temp Pulse Resp B/P (MAP) Pulse Ox O2 Delivery O2 Flow Rate FiO2 08/30/20 08:00 97.2 65 18 151/64 (93) 100 08/30/20 04:00 97.7 63 16 151/73 (99) 100 08/30/20 00:00 97.9 72 20 144/78 (100) 100 08/29/20 21:00 Nasal Cannula 2.0 08/29/20 16:00 97.7 65 20 140/59 (86) 97 08/29/20 16:00 69 08/29/20 13:24 97.9 65 18 157/50 (85) 98 08/29/20 13:20 97.9 64 23 144/62 100 Nasal Cannula 3 08/29/20 13:20 67 14 98 08/29/20 13:19 67 14 98 08/29/20 13:10 64 21 121/69 100 Nasal Cannula 3 08/29/20 13:05 65 21 145/67 100 Nasal Cannula 3 08/29/20 13:00 97.1 67 15 122/46 100 Nasal Cannula 3 08/29/20 12:00 97.9 65 18 157/50 (85) 98 08/29/20 12:00 64 Intake and Output 08/29/20 08/30/20 19:00 07:00 Intake Total 200 ml 660 ml Balance 200 ml 660 ml Free Water 100 ml IV Total 200 ml 350 ml Tube Feeding 210 ml # Voids 1 # Bowel Movements 1 1 Laboratory Tests 08/29/20 11:31: POC Whole Blood Glucose 66L 08/29/20 12:12: POC Whole Blood Glucose 125H 08/29/20 17:12: POC Whole Blood Glucose 66L 08/29/20 17:59: POC Whole Blood Glucose 83 08/30/20 06:01: POC Whole Blood Glucose 98 08/30/20 07:10: White Blood Count 3.6L, Red Blood Count 2.93L, Hemoglobin 8.8L, Hematocrit 27.9L , Mean Corpuscular Volume 95, Mean Corpuscular Hemoglobin 30.1, Mean Corpuscular Hemoglobin Concent 31.7L, Red Cell Distribution Width 16.4H, Platelet Count 192, Mean Platelet Volume 6.9, Neutrophils (%) (Auto) 56.2, Lymphocytes (%) (Auto) 21.3, Monocytes (%) (Auto) 9.9, Eosinophils (%) (Auto) 11.0H, Basophils (%) (Auto) 1.6, Sodium Level 139, Potassium Level 4.0, Chloride Level 103, Carbon Dioxide Level 28, Anion Gap 8, Blood Urea Nitrogen 17, Creatinine 4.1H, Estimat Glomerular Filtration Rate 12.6, Glucose Level 103, Calcium Level 8.6 Height (Feet): 5 Height (Inches): 4.00 Weight (Pounds): 162 General Appearance: alert EENT: normal ENT inspection Neck: non-tender, normal alignment, supple Cardiovascular: normal rate, regular rhythm Respiratory/Chest: lungs clear, normal breath sounds Abdomen: non tender, soft Extremities: non-tender Edema: no edema noted Arm (L), no edema noted Arm (R) Neurologic: alert, responsive Skin: warm/dry Assessment/Plan Status: stable Assessment/Plan: 1. Dislodged J tube - J tube was replaced yesterday and feeding has started. will d/c back to [facility] today. 2. ESRD on HD - HD done yesterday. 3. H/o Orthostatic Hypotension - currently BP is ok and will hold off Midodrine for now. 4. Anemia due to ESRD - on procrit. Pam Alcantar MD Aug 30, 2020 09:30
--- NOTE | 2020-08-30 09:54 | NUR ---
*-*DISCHARGE PLANNING*-* PATIENT HAS BEEN REFERRED BACK TO: [facility] P: [phone]
--- NOTE | 2020-08-30 11:52 | NUR ---
*-*DISCHARGE PLANNED*-* PATIENT HAS BEEN ACCEPTED AND WILL BE DISCHARGED BACK TO: [facility] P: [phone] FOR NURSE REPORT ROOM# 216.B [facility] TRANSPORTATION SET FOR 1:30P/1330PM S/W ZACHARY [id number]. S/W PATIENTS SON MARGUERITE RUVALCABA, WHO IS IN AGREEMENT WITH DISCHARGE PLAN.
[2020-08-30 12:00] VITALS: BP 140/73
--- NOTE | 2020-08-30 12:05 | NUR ---
NURSE NOTES: RN called [facility] and gave report to elyse, receiving nurse. RN endorsed that patient is for discharge and will be picked up by [facility] around 1330. Patient is AAOx0, non verbal, on NC 2L/M. Patient is returning to SNF, RN aware and familiar with patient. IV site removed due to no iv medications needed and arm band removed. RN will continue to monitor. RN left call back number for any questions Elyse may have
--- NOTE | 2020-08-30 12:23 | General Progress Note ---
Subjective ROS Limited/Unobtainable: No Allergies: Coded Allergies: GABAPENTIN (Unverified Allergy, Unknown, 06/14/19) Objective Last 24 Hour Vital Signs Date Time Temp Pulse Resp B/P (MAP) Pulse Ox O2 Delivery O2 Flow Rate FiO2 08/30/20 12:00 97.0 72 18 140/73 (95) 100 08/30/20 09:00 Nasal Cannula 2.0 08/30/20 08:00 97.2 65 18 151/64 (93) 100 08/30/20 04:00 97.7 63 16 151/73 (99) 100 08/30/20 00:00 97.9 72 20 144/78 (100) 100 08/29/20 21:00 Nasal Cannula 2.0 08/29/20 16:00 97.7 65 20 140/59 (86) 97 08/29/20 16:00 69 08/29/20 13:24 97.9 65 18 157/50 (85) 98 08/29/20 13:20 97.9 64 23 144/62 100 Nasal Cannula 3 08/29/20 13:20 67 14 98 08/29/20 13:19 67 14 98 08/29/20 13:10 64 21 121/69 100 Nasal Cannula 3 08/29/20 13:05 65 21 145/67 100 Nasal Cannula 3 08/29/20 13:00 97.1 67 15 122/46 100 Nasal Cannula 3 Intake and Output 08/29/20 08/30/20 19:00 07:00 Intake Total 200 ml 660 ml Output Total 3300 ml Balance 200 ml -2640 ml Free Water 100 ml IV Total 200 ml 350 ml Tube Feeding 210 ml Output Hemodialysis UF 3300 ml # Voids 1 # Bowel Movements 1 1 Laboratory Tests 08/29/20 17:12: POC Whole Blood Glucose 66L 08/29/20 17:59: POC Whole Blood Glucose 83 08/30/20 06:01: POC Whole Blood Glucose 98 08/30/20 07:10: White Blood Count 3.6L, Red Blood Count 2.93L, Hemoglobin 8.8L, Hematocrit 27.9L , Mean Corpuscular Volume 95, Mean Corpuscular Hemoglobin 30.1, Mean Corpuscular Hemoglobin Concent 31.7L, Red Cell Distribution Width 16.4H, Platelet Count 192, Mean Platelet Volume 6.9, Neutrophils (%) (Auto) 56.2, Lymphocytes (%) (Auto) 21.3, Monocytes (%) (Auto) 9.9, Eosinophils (%) (Auto) 11.0H, Basophils (%) (Auto) 1.6, Sodium Level 139, Potassium Level 4.0, Chloride Level 103, Carbon Dioxide Level 28, Anion Gap 8, Blood Urea Nitrogen 17, Creatinine 4.1H, Estimat Glomerular Filtration Rate 12.6, Glucose Level 103, Calcium Level 8.6 Height (Feet): 5 Height (Inches): 4.00 Weight (Pounds): 162 General Appearance: no apparent distress EENT: normal ENT inspection Neck: supple Cardiovascular: normal rate Respiratory/Chest: decreased breath sounds Abdomen: normal bowel sounds, non tender, soft Extremities: non-tender Assessment/Plan Problem List: (1) jt displacement (2) Malfunctioning jejunostomy tube ICD Codes: K94.13 - Enterostomy malfunction SNOMED: 788738565, 015575889 (3) ESRD (end stage renal disease) on dialysis ICD Codes: N18.6 - End stage renal disease; Z99.2 - Dependence on renal lyn lysis SNOMED: 345688811 (4) Dementia ICD Codes: F03.90 - Unspecified dementia without behavioral disturbance SNOMED: 93079965 (5) Anemia ICD Codes: D64.9 - Anemia, unspecified SNOMED: 266931866 (6) DM (diabetes mellitus) ICD Codes: E11.9 - Type 2 diabetes mellitus without complications SNOMED: 54906338 Status: stable Assessment/Plan: s/p successful JT placement on TF fu labs dc planning per primary team Ezequiel Perales MD Aug 30, 2020 12:23
--- NOTE | 2020-08-30 14:40 | NUR ---
NURSE NOTES: Patient discharged in stable condition. Vital signs were stable with no signs of any acute distress noted. IV site and arm band removed. Ambulance personnel given packet as well as instructions regarding discharge. Patient was then taken by ambulance personnel onto the ambulance bay safely. RN notified SNF that patient left and is on her way to facility
[2020-08-30] MEDS ORDERED: Epoetin Alfa-EPBX(ESRD on dialysis)3000 units/ml vial SUBQ SCH (21:00)
--- NOTE | 2020-08-31 19:52 | Discharge Summary ---
Discharge Summary Discharge Summary _ DATE OF ADMISSION: 08/28/2020 DATE OF DISCHARGE: 08/30/2020 DISCHARGED BY: Dr. Pam Alcantar CONSULTANTS: Dr. Virgen Arnold BRIEF HOSPITAL COURSE: Patient is an 85-year-old female, with history of end-stage renal disease on hemodialysis 3 times a week, hypertension, diabetes, hyperlipidemia, peripheral vascular disease, and history of CVA and DVT, history of anemia of chronic disease and gout, who was brought in from [facility] due to dislodged J-tube. The patient is paraplegic and status post bilateral hdgxy-map-chns amputation secondary to peripheral vascular disease. GI was consulted. Patient was COVID-19 the negative in ED. Patient was placed on insulin sliding scale. She was given inpatient hemodialysis. Patient has history of orthostatic hypotension. Current BP was stable. Hold off on midodrine. She was given Procrit for anemia. On 08/29/2020, patient underwent upper endoscopy with J-tube placement. She tolerated procedure well. She was started on feeding. Patient was tolerating feeding. Patient was cleared for discharge back to [facility]. FINAL DIAGNOSES: Dislodged J-tube status post EGD with J-tube placement End-stage renal disease on hemodialysis History of orthostatic hypotension Anemia due to end-stage renal disease Hypertension Diabetes mellitus Secondary hyperparathyroidism of renal origin Dementia DISPOSITION: Patient was discharged back to [facility]. DISCHARGE MEDICATIONS: Refer to Discharge Medication List. I have been assigned to complete a discharge summary on this account, I was not involved with the patient's management.--ROLAND Norwood Jacqueline Robles NP Aug 31, 2020 19:52
--- NOTE | 2020-08-31 22:45 | Discharge Summary ---
DATE OF ADMISSION: 08/28/2020 DATE OF DISCHARGE: 08/30/2020 HOSPITAL COURSE: This is an 85-year-old female with history of end-stage renal disease on hemodialysis three times a week, hypertension, hyperlipidemia, diabetes, and peripheral vascular disease with a history of CVA, DVT, history of anemia of chronic disease and gout who was brought in from [facility] for dislodged J-tube. The patient also is paraplegic and status post bilateral awzds-jju-awgi amputations secondary to peripheral vascular disease. The patient was seen by Dr. Perales and her J-tube was changed and the patient tolerated the procedure well. The patient also while in the hospital received hemodialysis by Dr. Arnold. After J-tube change, we will transfer patient back to the [facility] where she resides as a long-term patient. DISCHARGE DIAGNOSES: Include: 1. Dislodged J-tube. 2. End-stage renal disease. 3. Hyperlipidemia. 4. Diabetes mellitus type 2. 5. History of anemia of chronic disease secondary to end-stage renal disease. 6. CVA. 7. Gout. 8. History of peripheral vascular disease status post repqg-usd-elnf amputation. DISCHARGE MEDICATIONS: The patient will be discharged back with the same medication she came in except for we will hold midodrine 10 mg times a week due to blood pressure being good and then we will continue ascorbic acid, aspirin 81 mg, Epogen, ferrous sulfate, folic acid, insulin sliding scale, lactobacillus, pravastatin, senna, timolol, and vitamin B complex. DISPOSITION: The patient will be discharged back to the [facility]. Pam Alcantar M.D. DR: Renee JOB#: [id number] CC: BHANU
--- NOTE | 2020-09-02 06:19 | Cardiology Report ---
APPROVED REPORT EKG Measurement Heart [id number] ID [id number] <Conclusion> Sinus rhythm with frequent premature ventricular complexes and premature atrial complexes Possible Inferior infarct, age undetermined Abnormal ECG
== END 2020-08-30 15:20 | DRG 393 ==
LOC: EDUNIT# 13:39 → EDBD 13:39 → EMR 14:00 → EDBEDREQ 14:05 → 2E 15:56 → EDBEDREQ 20:35 → 4E 08-30 00:25
PROC: 0DHA4UZ Insertion of Feeding Device into Jejunum, Percutaneous Endoscopic Approach (ICD-10-PCS; principal; 2020-08-29 12:43)
PROC: 5A1D70Z Performance of Urinary Filtration, Intermittent, Less than 6 Hours Per Day (ICD-10-PCS; 2020-08-29 12:43)
DX: K94.13 Enterostomy malfunction (principal); N18.6 End stage renal disease; I12.0 Hypertensive chronic kidney disease with stage 5 chronic kidney disease or end stage renal disease; G82.20 Paraplegia, unspecified; N25.81 Secondary hyperparathyroidism of renal origin; Z88.6 Allergy status to analgesic agent; E11.22 Type 2 diabetes mellitus with diabetic chronic kidney disease; M10.9 Gout, unspecified; D63.1 Anemia in chronic kidney disease; Y83.8 Other surgical procedures as the cause of abnormal reaction of the patient, or of later complication, without mention of misadventure at the time of the procedure; Z99.2 Dependence on renal dialysis; E78.5 Hyperlipidemia, unspecified; Z86.73 Personal history of transient ischemic attack (TIA), and cerebral infarction without residual deficits; I73.9 Peripheral vascular disease, unspecified; Z89.612 Acquired absence of left leg above knee; Z89.611 Acquired absence of right leg above knee; F03.90 Unspecified dementia, unspecified severity, without behavioral disturbance, psychotic disturbance, mood disturbance, and anxiety; Y83.3 Surgical operation with formation of external stoma as the cause of abnormal reaction of the patient, or of later complication, without mention of misadventure at the time of the procedure
CPT/HCPCS: 36415; 71045; 80048; 80053; 82962; 83540; 83550; 84484; 85025; 85610; 85730; 86706; 87040; 87081; 87181; 93005; 94003; 94150; 96365; 96375; 99285; J1815; U0002